=== PATIENT | male | born 2000 | race Caucasian/White ===

== ENCOUNTER 2023-05-21 17:26 | Inpatient (IN) | payer SELFPAY ==
[2023-05-21 17:28] VITALS: BP 111/96; PULSE 87; RESP 14; TEMP 36.6; O2SAT 98; BMI 23.5
--- NOTE | 2023-05-21 18:05 | EDS_ITS ---
HPI History of Present Illness Chief Complaint: General Illness Informant: patient Onset/Context/Timing Onset: Month(s) (1) Context: Gradual Onset Timing: Continuous Quality: Soreness Location: Generalized Worsened by: Nothing Relieved by: Hot baths Narrative Narrative: Patient presents with bruising that has been getting progressively worse over the past month. Patient states it started in his lower extremities and now it spread to his abdomen, chest, and upper extremities. Patient denies any bleeding. Patient denies any trauma or injuries. Patient admits to some nausea but denies any vomiting. Patient admits to some dark urine but denies any dysuria, hematuria, or frequency. Patient does admit to some pain in his back. Patient denies any fevers or chills. PFSH PFS Medical History (Updated 05/22/23 @ 08:[address] Killian Elam DO) Cannabis use disorder Medical History no medical history no medical history Home Medications NK 05/22/23 [History Last Taken Unknown] Allergy/AdvReac Type Severity Reaction Status Date / Time No Known Allergies Allergy Verified 05/21/23 17:27 Family History (Updated 05/22/23 @ 01:[address] Karol Mari MD) Mother No problems noted. Father No problems noted. Surgical History No history of previous surgery Surgical History no surgical history no surgical history Social History (Updated 05/22/23 @ 01:[address] Karol Mari MD) household members: none Smoking Status: Never smoker alcohol intake: never substance use type: marijuana ROS ROS ED Constitutional Constitutional ED: Denies chills or fever(s) Eyes Eyes: Denies blurry vision or change in vision ENT ENT ED: Denies rhinorrhea or sore throat Cardiovascular Cardiovascular: Denies chest pain or palpitations Respiratory/Chest Respiratory/Chest: Denies cough or dyspnea Gastrointestinal Gastrointestinal: Reports nausea; Denies vomiting Genitourinary Genitourinary ED: Denies dysuria or hematuria Musculoskeletal Musculoskeletal: Reports back pain; Denies neck pain Integumentary Denies abscess or rash Neurologic Neurologic: Denies headache(s) or weakness Hematologic/Lymphatic Hematologic/Lymphatic: Reports as per HPI and easy bruising Allergic/Immunologic Allergic/Immunologic ED: Denies mouth swelling or urticaria EXAM Physical Exam Const Vital Signs: 05/21/23 17:28 Temperature 98 F Temperature Source Temporal Pulse Rate 87 Respiratory Rate 14 Blood Pressure 111/96 H Blood Pressure Mean 101 Pulse Ox 98 Oxygen Delivery Method Room Air Positive well nourished and well developed General Appearance ED: well developed HEENT Reports moist mucous membranes Neck supple and no JVD Resp normal respiratory effort and clear to auscultation bilaterally Cardio regular rate, regular rhythm and no murmurs GI normal to inspection, nondistended, normoactive bowel sounds and non-tender Palpation: soft Extremity normal to inspection General Extremety ED: Negative for edema General Extremity: Negative for edema Neuro oriented x3, CN's II-XII intact bilaterally and no sensory deficits noted Sensorium / Orientation: alert Motor Exam: strength 5/5 throughout Psych mental status grossly normal Skin skin turgor normal Skin Narrative: There are multiple areas of ecchymosis. There is tenderness over the areas of ecchymosis. There is no bleeding noted. MDM MDM MDM Narrative Medical decision making narrative: Differential diagnosis includes coagulopathy, thrombocytopenia, ITP, TTP, HSP, and anemia. CBC will be obtained to assess for leukocytosis, anemia, and thrombocytopenia. Basic metabolic profile will be obtained to assess for electrolyte abnormality and renal function. PT with INR and PTT will be obtained to assess for coagulopathy. Urinalysis will be obtained to assess for hematuria. Lab Data Attestation: I reviewed the patient's lab results. Lab results narrative: CBC was reviewed. Platelets were low at 24. White blood cell count was normal. Hemoglobin and hematocrit were normal. PT with INR and PTT were reviewed and were within normal limits. Comprehensive metabolic profile was reviewed. AST was slightly low at 14. Alk phos was slightly low at 40. Urinalysis was reviewed. Urine urobilinogen was slightly elevated at 1. The remainder is within normal limits. Labs: Laboratory Results - last 24 hr 05/21/23 20:00 Haptoglobin 38 Additional Tests and Interventions Additional Tests or Interventions: Case was discussed with Dr. Elam from hematology oncology. He recommended obtaining an LDH and a haptoglobin. These were ordered. LDH was normal at 209. Haptoglobin is still pending. Treatment and Re-Evaluation :: Dr. Elam came in to evaluate the patient. He recommended transferring the patient for further evaluation at a higher level of care. He believes that this may be from ITP however, patient has no signs of petechia which are consistent with ITP. Because it is not a clear-cut diagnosis, he recommends further evaluation and higher level of care. Patient understands and is agreeable with the plan. All questions were answered. Case was discussed with [facility] transfer line. Case was discussed with Dr. Pena from hematology. He agreed that the patient would benefit from transfer to [facility]. However, he recommended admitting to the medical service. Case was discussed with Dr. Zuluaga from the medical service. He stated that he would accept the patient however, there were no beds available at this time. He stated that it may take days before bed becomes available. Case was discussed with [facility] transfer line. Case was discussed with Dr. Riggs from hematology. He agreed to have the patient transferred there. Transfer line noted that it may take days before a bed becomes available there as well. Case was discussed with the hospitalist here. If a bed does not become available in a reasonable timeframe, patient will be admitted here pending transfer to either [facility] or [facility]. Dr. Elam will be able to see the patient if the patient is admitted here pending transfer. Discharge Plan Dx/Rx/DC Orders Clinical Impression: Ecchymoses, spontaneous, Severe thrombocytopenia Disposition Disposition: Acute Care Hospital [facility] Discharge Date/Time: 05/22/23 05:57
[2023-05-21 18:30] LABS: Basophil# 0.02 X10^3/uL; Basophil% 0.3 % (0-1); Eosinophil# 0.03 X10^3/uL; Eosinophils% 0.5 % (0-5); Hematocrit 45.5 % (40-54); Hemoglobin 15.5 g/dL (13.0-16.5); Mean Corp Hgb Conc 34.1 g/dL (32-36); Mean Platelet Vol. 13.5 fl (6.2-12.0); Monocyte# 0.37 X10^3/uL; Monocyte% 5.7 % (0-10); NRBC Flagged by Analyzer 0 % (0-5); Neutrophil % 61.9 % (47-70); POSITIVE COUNT YES; RBC Distribution Width CV 13.1 % (11.6-14.6); RBC Distribution Width SD 43.1 fl (35.1-43.9); White Blood Count 6.5 K/mm3 (4.4-11.0)
[2023-05-21 18:39] LABS: International Normalized Ratio 1.1; Prothrombin Time (Protime)PT. 14.4 SECONDS (11.7-14.9)
[2023-05-21 18:40] LABS: Partial Thromboplast Time 30.7 Seconds (24.1-36.2)
[2023-05-21 18:49] LABS: ALB/GLOB Ratio 1.2 RATIO (0.9-2.4); AST(SGOT) 14 U/L (15-37); Alanine Aminotransfer ALT/SGPT 42 U/L (16-61); Albumin, Serum 4.1 g/dL (3.2-5.0); Alkaline Phosphatase 40 U/L (45-117); Anion Gap 5 (5-15); BUN 10 mg/dL (7-18); Calcium,Total 9.1 mg/dL (8.5-10.1); Chloride 108 mmol/L (98-107); EST Glomerular Filtration Rate 99 mL/min (>60); Est Glom Filt Rate - Afr Amer 120 mL/min (>60); Estimated Creatinine Clearance 119.64 ml/min; Globulin 3.3 g/dL (2.2-4.2); Glucose 97 mg/dL (74-106); Potassium 4.1 mmol/L (3.5-5.1); Protein, Total 7.4 g/dL (6.4-8.2); Sodium Level 138 mmol/L (136-145)
[2023-05-21 18:53] LABS: Differential Indicated SCAN CRITERIA MET; Platelet Count 24 K/mm3 (150-450)
[2023-05-21 18:54] LABS: Differential Comment SCANNED
[2023-05-21 19:00] LABS: Bacteria 0 SEEN /hpf (None Seen); Mucous, Urine 0 SEEN /hpf (<or=2+); Red Blood Cells-Urine 0 SEEN /hpf (0-5); Squamous Epithelial Cells - UA 0 SEEN /hpf (0-5); White Blood Cells 0 SEEN /hpf (0-5)
[2023-05-21 19:02] LABS: Color, Urine Yellow (Yellow); Glucose, Dipstick Normal (Normal); Ketone-Dipstick Negative (Negative); Leukocyte Esterase-Dipstick Negative /ul (Negative); Nitrite-Dipstick Negative (Negative); Occult Blood-Urine Negative /ul (Negative); Protein-Dipstick 15 mg/dl (Negative); Urine Bilirubin Dipstick Negative (Negative); Urine Clarity Clear (Clear); Urine Urobilinogen 1 mg/dl (Normal)
[2023-05-21 20:31] LABS: LDH 209 U/L (87-241)
--- NOTE | 2023-05-21 20:35 | CON.PCM.ON_ITS ---
Assessment & Plan Assessment/Plan (1) Severe thrombocytopenia: Status: Acute Code(s): D69.6 - Thrombocytopenia, unspecified (2) Ecchymoses, spontaneous: Status: Acute Code(s): R23.3 - Spontaneous ecchymoses (3) Malaise: Status: Acute Code(s): R53.81 - Other malaise (4) Muscular aches: Status: Acute Code(s): M79.10 - Myalgia, unspecified site Plan: Impression: -Severe thrombocytopenia associated with malaise and general muscle aches/weakness ~1 month. -Loss of appetite and weight loss. -Reviewed PBS--Many elliptical RBCs and several schistocytes appreciated only toward feathered edge. No obvious blasts. No platelet clumping. -Normal LDH. -Positive urobilinogen. -Normal coagulation times. -The data suggests ITP, but very unusual presentation for ITP. -Possible evolving TTP. Plan: -Recommend transfer to tertiary center [facility] for close monitoring and further work up. HPI Consult Data Date of Service:: 05/21/23 PCP / Referring Provider: No Primary Care Phys Chief Complaint Chief Complaint: Severe thrombocytopenia History of Present Illness History of Present Illness: The patient is a 23-year-old male with an unremarkable past medical history. He presented to the ED earlier this afternoon with complaints of bruising. Symptoms have been going on about a month. He was afebrile on presentation. He said for the last month whenever he gets up in the morning he feels exhausted and has all over body aches. Often has to soak in a hot tub to start feeling better. He has been noticing unprovoked bruises all over for the last month. He has not had petechiae. Occasional gum bleeding when he brushes his teeth. No epistaxis or rectal bleeding. He has not had fevers or drenching night sw eats. His appetite has been poor and he has lost about 10 to 15 pounds. He endorses that if he lies on his stomach, he develops abdominal pain. He has developed reflux symptoms in the last few days. No nausea or vomiting. He has not had black or bloody stools. CBC was notable for a platelet count of 24,000. Remainder of the CBC was unremarkable. Specifically total white count was 6500. Differential was unremarkable. Hemoglobin 15.5 g/dL with a hematocrit of 45.5% and an MCV of 91. Protime and INR as well as activated partial thromboplastin times were normal. Chemistries significant for creatinine of 1.0 mg/dL. BUN was 10. Total bilirubin was 0.9 mg/dL. LDH 209. Urinalysis demonstrated mild proteinuria with some urobilinogen quantitated at 1 mg/dL. Patient had a little brother who was treated for acute leukemia at [facility] of years ago. He smokes marijuana on occasion. No tobacco use. Infrequent alcohol use. No tonic water. Lives on his own. Currently not working. Denies risk factors for HIV. Has not used injection drugs. Was treated for a right groin abscess in November of this year. Advanced Directives Power of Safety Aide: No Living Will: No PFSH Medical History no medical history Allergy/AdvReac Type Severity Reaction Status Date / Time No Known Allergies Allergy Verified 05/21/23 17:27 Surgical History no surgical history Social History Smoking Status: Never smoker ROS Constitutional Constitutional: Reports fatigue, poor appetite and weight loss Cardiovascular Cardiovascular: Reports dyspnea on exertion Gastrointestinal Gastrointestinal: Reports other Details: Reflux Musculoskeletal Musculoskeletal: Reports other Details: Diffuse muscle aches. Integumentary Integumentary: Reports unusual bruising Hematologic/Lymphatic Hematologic/Lymphatic: Reports easy bruising Physical Exam Const alert, oriented x3 and no apparent distress General Appearance: cooperative HEENT HEENT Narrative: No oral mucosal or gingival bleeding noted. Eyes no scleral icterus Neck no lymphadenopathy Lymph Lymphatic: no lymphadenopathy noted Chest Chest Narrative: Bruising of right breast with palpable nodule--?hematoma. Resp normal respiratory effort Cardio regular rhythm GI soft to palpation and non-tender GI Narrative: No hepatomegaly or splenomegaly. Narrative: No testicular mass or nodule. Small mildly erythematous skin nodule left scrotum. Skin Skin Narrative: Large scattered ecchymoses in various stages of healing. No petechiae. Neuro no focal motor deficits Vital Signs Temperature 98 F 05/21/23 17:28 Temperature Source Temporal 05/21/23 17:28 Pulse Rate 87 05/21/23 17:28 Respiratory Rate 14 05/21/23 17:28 Blood Pressure 111/96 H 08/08/23 17:28 Blood Pressure Mean 101 05/21/23 17:28 Pulse Ox 98 05/21/23 17:28 Oxygen Delivery Method Room Air 05/21/23 17:28 Laboratory Results - last 24 hr 05/21/23 18:20: WBC 6.5, RBC 5.00, Hgb 15.5, Hct 45.5, MCV 91.0, MCH 31.0, MCHC 34.1, RDW Std Deviation 43.1, RDW Coeff of Nba 13.1, Plt Count 24 L*, MPV 13.5 H , Immature Gran % (Auto) 0.600, Neut % (Auto) 61.9, Lymph % (Auto) 31.0, [place] % (Auto) 5.7, Eos % (Auto) 0.5, Baso % (Auto) 0.3, Absolute Neuts (auto) 4.0, Absolute Lymphs (auto) 2.00, Nucleated RBC % 0, Differential Comment SCANNED, Diff Path Review February, PT 14.4, INR 1.1, APTT 30.7, Sodium 138, Potassium 4.1, Chloride 108 H, Carbon Dioxide 25.0, Anion Gap 5, BUN 10, Creatinine 1.00, Estim Creat Clear Calc 119.64, Est GFR (MDRD) Af Amer 120, Est GFR (MDRD) Non-Af 99, BUN/Creatinine Ratio 10.0, Glucose 97, Calcium 9.1, Total Bilirubin 0.90, AST 14 L, ALT 42, Alkaline Phosphatase 40 L, Total Protein 7.4, Albumin 4.1, Globulin 3.3, Albumin/Globulin Ratio 1.2 05/21/23 18:56: Urine Color Yellow, Urine Clarity Clear, Urine pH 8.0, Ur Specific [place] 1.010, Urine Protein 15 H, Urine Glucose (UA) Normal, Urine Ketones Negative, Urine Occult Blood Negative, Urine Nitrite Negative, Urine Bilirubin Negative, Urine Urobilinogen 1 H, Ur Leukocyte Esterase Negative, Urine RBC 0 SEEN, Urine WBC 0 SEEN, Ur Squamous Epith Cells 0 SEEN, Urine Bacteria 0 SEEN, Urine Mucus 0 SEEN 05/21/23 20:00: Lactate Dehydrogenase 209
--- NOTE | 2023-05-21 21:44 | CM.ED ---
Social Work SW introduced self and role to patient. SW offered support to patient. Pt is being transferred to another facility. SW answered questions as able. Pt expressed some concerns and SW provided emotional support. Andreina Mendez GLOST TILE SORTER, RECLAMATION FURNACE OPERATOR
[2023-05-22] VITALS (8 sets, daily range): BP systolic 108–137; BP diastolic 68–78; PULSE 51–78; RESP 14–18; TEMP 35.9–36.7; O2SAT 96–99; BMI 22.8
--- NOTE | 2023-05-22 01:17 | PCM.HP.STD ---
HPI - General General Date of Admission: 05/22/23 Date of Service: 05/22/23 Chief Complaint: Bruising, fatigue, malaise, weight loss. HPI Narrative The patient is a 23 y/o M w/ PMHx: Cannabis use otherwise healthy with no medical history and no recent illnesses or recent medications usage who presents to the [facility] initially on 05/21/2023 with history of approximately 1 month of increased fatigue, myalgias, malaise, decreased appetite, weight loss of approximately 10 to 15 pounds, night sweats as well as nausea without any emesis with onset of ecchymoses unprovoked initially starting distally and going upwards spreading to his abdomen and chest with no travis bleeding except occasionally when he brushes his teeth. Patient denied any fevers or chills. Patient does report mild enlargement over bruising of the right breast with suspected hematoma. Patient denied any petechia. Workup in the ED included T98, heart rate 87, BP 111/96, respiratory rate 14, 98% on room air, CBC with WC 6.5, hemoglobin 15.5, platelet 24 without marked shift, pending haptoglobin, coags unremarkable, CMP with chloride 108 otherwise not marked appearing, LDH 209, urinalysis with protein 15, urine urobilinogen 1 otherwise urine unremarkable, PBS review per Dr. Elam oncology with noted many elliptical RBCs and several schistocytes only toward feathered edge with no obvious blasts or any platelet clumping. ED physician did discuss case with oncologist Dr. Elam who presented to the hospital and evaluated the patient with data at this point suggestive of ITP although reported to very atypical and usual presentation with data suggestive of ITP but certainly could be a possible evolving TTP with recommendation for transfer to tertiary facility. [facility] was contacted as well as [facility] and patient is still awaiting bed placement but per discussion with the ED has been accepted therefore decision to admit to [facility] pending further tertiary facility bed availability. [facility] Medical History (Updated 05/22/23 @ 01:[address] Karol Mari MD) Cannabis use disorder Medical History no medical history Allergy/AdvReac Type Severity Reaction Status Date / Time No Known Allergies Allergy Verified 05/21/23 17:27 Family History (Updated 05/22/23 @ 01:[address] Karol Mari MD) Mother No problems noted. Father No problems noted. other (Denies any marked maternal or paternal family history including HD, DM, CA.) Surgical History (Updated 05/22/23 @ 01:[address] Karol Mari MD) No history of previous surgery Surgical History no surgical history Social History (Updated 05/22/23 @ 01:[address] Karol Mari MD) household members: none Smoking Status: Never smoker alcohol intake: never substance use type: marijuana ROS ROS Narrative Admission Review of Systems: CONSTITUTIONAL: + weight loss, fever, chills, weakness or fatigue. HEENT: Eyes: No visual loss, blurred vision, double vision or yellow sclerae. Ears, Nose, Throat: No hearing loss, sneezing, congestion, runny nose or sore throat. SKIN: + Significant diffuse ecchymotic change of various stages. CARDIOVASCULAR: No chest pain, chest pressure or chest discomfort, palpitations, edema, orthopnea, syncopal events. RESPIRATORY: No shortness of breath, cough or sputum, wheezing, hemoptysis. GASTROINTESTINAL: + anorexia, nausea, dyspepsia. No vomiting or diarrhea, abdominal pain, melena, BRBPR. GENITOURINARY: No dysuria, frequency, urgency or retention. NEUROLOGICAL: No headache, dizziness, syncope, paralysis, ataxia, numbness or tingling in the extremities, focal weakness, change in bowel or bladder control, seizure. MUSCULOSKELETAL: + muscle, back pain, joint pain or stiffness. HEMATOLOGIC: + bleeding or bruising. LYMPHATICS: No enlarged nodes. No history of splenectomy. PSYCHIATRIC: No history of depression or anxiety. ENDOCRINOLOGIC: + reports of sweating, cold or heat intolerance. No polyuria or polydipsia. ALLERGIES: No history of asthma, hives, eczema or rhinitis. Vital Signs Vital Signs Vital Signs: 05/21/23 17:28 05/22/23 00:40 Temperature 98 F Temperature Source Temporal Pulse Rate 87 78 Respiratory Rate 14 17 Blood Pressure 111/96 H 131/78 H Blood Pressure Mean 101 95 Pulse Ox 98 97 Oxygen Delivery Method Room Air Room Air Weight Weight: 164 lb 0.383 oz Body Mass Index (BMI) 23.5 Physical Exam Narrative Physical Examination: General: Awake, alert, oriented x 3 and cooperative, laying in the ED bed, fatigued but no acute distress. Skin: Normal color, normal turgor, no icterus, no cyanosis except for various staged ecchymotic change to the extremities and thorax as well as abdomen and back. HEENT: AT/NC, EOMI, PERRLA, MMM, no carotid bruits or JVD noted. Lungs: CTA bilaterally, moderate effort, mild decrease BL bases, no rales, ronchi or wheezing. Heart: Regular rate and rhythm; no gallop, rub audible. Abdomen: Soft, NTTP, ND, mildly hyperactive BS, no HSM. Extremities: No cyanosis, clubbing, or edema, see skin. Neurological: Patient awake, alert, oriented as noted, cognitive function intact; pupils equally reactive to light and accommodation, cranial nerves II-XII grossly normal, moving all 4 extremities, strength mildly globally decreased but no focal deficit, more fatigued primarily than anything. Psychiatric: Affect appears fatigued, no acute evidence of depressive or anxiety feelings. Results Lab / Micro Data 05/21/23 18:20 05/21/23 18:20 Labs: Laboratory Results - last 24 hr 05/21/23 18:20: WBC 6.5, RBC 5.00, Hgb 15.5, Hct 45.5, MCV 91.0, MCH 31.0, MCHC 34.1, RDW Std Deviation 43.1, RDW Coeff of Nba 13.1, Plt Count 24 L*, MPV 13.5 H, Immature Gran % (Auto) 0.600, Neut % (Auto) 61.9, Lymph % (Auto) 31.0, [place] % (Auto) 5.7, Eos % (Auto) 0.5, Baso % (Auto) 0.3, Absolute Neuts (auto) 4.0, Absolute Lymphs (auto) 2.00, Nucleated RBC % 0, Differential Comment SCANNED, Diff Path Review February foll, PT 14.4, INR 1.1, APTT 30.7, Sodium 138, Potassium 4.1, Chloride 108 H, Carbon Dioxide 25.0, Anion Gap 5, BUN 10, Creatinine 1.00, Estim Creat Clear Calc 119.64, Est GFR (MDRD) Af Amer 120, Est GFR (MDRD) Non-Af 99, BUN/Creatinine Ratio 10.0, Glucose 97, Calcium 9.1, Total Bilirubin 0.90, AST 14 L, ALT 42, Alkaline Phosphatase 40 L, Total Protein 7.4, Albumin 4.1, Globulin 3.3, Albumin/Globulin Ratio 1.2 05/21/23 18:56: Urine Color Yellow, Urine Clarity Clear, Urine pH 8.0, Ur Specific [place] 1.010, Urine Protein 15 H, Urine Glucose (UA) Normal, Urine Ketones Negative, Urine Occult Blood Negative, Urine Nitrite Negative, Urine Bilirubin Negative, Urine Urobilinogen 1 H, Ur Leukocyte Esterase Negative, Urine RBC 0 SEEN, Urine WBC 0 SEEN, Ur Squamous Epith Cells 0 SEEN, Urine Bacteria 0 SEEN, Urine Mucus 0 SEEN 05/21/23 20:00: Lactate Dehydrogenase 209 Assessment & Plan Assessment/Plan (1) Severe thrombocytopenia: PLAN: Plan The patient is a 23 y/o M w/ PMHx: Cannabis use otherwise healthy with no medical history and no recent illnesses or recent medications usage who presents to the [facility] initially on 05/21/2023 with history of approximately 1 month of increased fatigue, myalgias, malaise, decreased appetite, weight loss of approximately 10 to 15 pounds, night sweats as well as nausea without any emesis with onset of ecchymoses unprovoked initially starting distally and going upwards spreading to his abdomen and chest with no travis bleeding except occasionally when he brushes his teeth. #1. Severe thrombocytopenia, acute with spontaneous unprovoked ecchymoses concerning for possibly ITP or possibly evolving TTP, unclear exact etiology: Given no bed at tertiary facility will at this time admit to [facility], maintain on fall precautions, will continue consultation with [facility] oncology Dr. Elam, plan repeat CBC in a.m. and per discussion with ED physician with also oncology will hold on immediate steroid administration at this time pending repeat CBC and also if patient does obtain a tertiary facility bed prior. If does not transfer throught the evening-java enterprise architect, would plan also to obtain breast US to be cautious to assure hematoma. #2. Chronic cannabis usage: Encourage cessation. #3. DVT prophylaxis: Defer especially given #1. Charges/Coding Visit Charges Inpatient E&M: 47338 Init Hosp L2
--- NOTE | 2023-05-22 05:42 | ED.RN ---
Attempted to call Hawa (mom) about pt admission to [facility]. No answer at this time, unable to leave voicemail.
[2023-05-22 07:02] LABS: Absolute Lymphocyte Count 3.14 X10^3/uL (0.83-4.51); Basophil# 0.03 X10^3/uL; Basophil% 0.4 % (0-1); Eosinophil# 0.05 X10^3/uL; Eosinophils% 0.7 % (0-5); Hematocrit 45.1 % (40-54); Hemoglobin 15.3 g/dL (13.0-16.5); Lymphocyte # 3.14 X10^3/ul (0.83-4.51); Lymphocyte % 40.8 % (19-41); Mean Corp Hgb Conc 33.9 g/dL (32-36); Mean Corpuscular Hgb 30.5 pg (27.0-32.0); Mean Corpuscular Volume 89.8 fL (80-94); Mean Platelet Vol. 12.4 fl (6.2-12.0); Monocyte% 5.2 % (0-10); NRBC Flagged by Analyzer 0 % (0-5); Neutrophil # 4.03 X10^3/uL (2.7-7.7); Neutrophil % 52.4 % (47-70); POSITIVE COUNT YES; Platelet Count 22 K/mm3 (150-450); RBC Distribution Width SD 42.5 fl (35.1-43.9); Red Blood Count 5.02 M/mm3 (4.6-6.2); White Blood Count 7.7 K/mm3 (4.4-11.0)
[2023-05-22 07:11] LABS: Differential Indicated SCAN CRITERIA MET
[2023-05-22 07:17] LABS: Fibrinogen 172 mg/dl (203-444)
[2023-05-22 07:32] LABS: ALB/GLOB Ratio 1.3 RATIO (0.9-2.4); AST(SGOT) 12 U/L (15-37); Alanine Aminotransfer ALT/SGPT 39 U/L (16-61); Albumin, Serum 4.1 g/dL (3.2-5.0); Alkaline Phosphatase 38 U/L (45-117); Anion Gap 5 (5-15); BUN 13 mg/dL (7-18); BUN/Creat Ratio 12.9 RATIO (10-20); Calcium,Total 8.8 mg/dL (8.5-10.1); Chloride 109 mmol/L (98-107); Creatinine, Serum 1.01 mg/dL (0.70-1.30); EST Glomerular Filtration Rate 98 mL/min (>60); Est Glom Filt Rate - Afr Amer 119 mL/min (>60); Estimated Creatinine Clearance 117.32 ml/min; Globulin 3.2 g/dL (2.2-4.2); Glucose 87 mg/dL (74-106); LDH 200 U/L (87-241); Potassium 3.6 mmol/L (3.5-5.1); Protein, Total 7.3 g/dL (6.4-8.2); Sodium Level 141 mmol/L (136-145)
[2023-05-22 07:40] LABS: Platelet Estimate MKD DEC (ADEQ)
[2023-05-22 08:10] LABS: International Normalized Ratio 1.1; Partial Thromboplast Time 31.9 Seconds (24.1-36.2); Prothrombin Time (Protime)PT. 14.7 SECONDS (11.7-14.9)
--- NOTE | 2023-05-22 08:20 | PN.ONC_ITS ---
Subjective Subjective No subjective change. No bleeding issues or fever overnight. Poor appetite this am. Physical Exam Eyes no scleral icterus Lymph Lymphatic: no lymphadenopathy noted Chest Chest: ecchymosis Resp normal air movement Cardio regular rhythm Skin Skin Narrative: No change in ecchymoses. Vital Signs Temperature 97.9 F 05/22/23 06:18 Temperature Source Oral 05/22/23 06:18 Pulse Rate 51 L 05/22/23 06:18 Respiratory Rate 17 05/22/23 06:18 Blood Pressure 128/68 H 05/22/23 06:18 Blood Pressure Mean 88 05/22/23 06:18 Blood Pressure Source Monitor 05/22/23 06:18 Blood Pressure Position Semi-Fowlers 05/22/23 06:18 Blood Pressure Location Right Arm 05/22/23 06:18 Pulse Ox 99 05/22/23 06:18 Oxygen Delivery Method Room Air 05/22/23 06:18 Laboratory Results - last 24 hr 05/21/23 18:20: WBC 6.5, RBC 5.00, Hgb 15.5, Hct 45.5, MCV 91.0, MCH 31.0, MCHC 34.1, RDW Std Deviation 43.1, RDW Coeff of Nba 13.1, Plt Count 24 L*, MPV 13.5 H , Immature Gran % (Auto) 0.600, Neut % (Auto) 61.9, Lymph % (Auto) 31.0, [place] % (Auto) 5.7, Eos % (Auto) 0.5, Baso % (Auto) 0.3, Absolute Neuts (auto) 4.0, Absolute Lymphs (auto) 2.00, Nucleated RBC % 0, Differential Comment SCANNED, Diff Path Review February, PT 14.4, INR 1.1, APTT 30.7, Sodium 138, Potassium 4.1, Chloride 108 H, Carbon Dioxide 25.0, Anion Gap 5, BUN 10, Creatinine 1.00, Estim Creat Clear Calc 119.64, Est GFR (MDRD) Af Amer 120, Est GFR (MDRD) Non-Af 99, BUN/Creatinine Ratio 10.0, Glucose 97, Calcium 9.1, Total Bilirubin 0.90, AST 14 L, ALT 42, Alkaline Phosphatase 40 L, Total Protein 7.4, Albumin 4.1, Globulin 3.3, Albumin/Globulin Ratio 1.2 05/21/23 18:56: Urine Color Yellow, Urine Clarity Clear, Urine pH 8.0, Ur Specific [place] 1.010, Urine Protein 15 H, Urine Glucose (UA) Normal, Urine Ketones Negative, Urine Occult Blood Negative, Urine Nitrite Negative, Urine Bilirubin Negative, Urine Urobilinogen 1 H, Ur Leukocyte Esterase Negative, Urine RBC 0 SEEN, Urine WBC 0 SEEN, Ur Squamous Epith Cells 0 SEEN, Urine Bacteria 0 SEEN, Urine Mucus 0 SEEN 05/21/23 20:00: Lactate Dehydrogenase 209 05/22/23 06:35: WBC 7.7, RBC 5.02, Hgb 15.3, Hct 45.1, MCV 89.8, MCH 30.5, MCHC 33.9, RDW Std Deviation 42.5, RDW Coeff of Nba 13.0, Plt Count 22 L*, MPV 12.4 H , Immature Gran % (Auto) 0.500, Neut % (Auto) 52.4, Lymph % (Auto) 40.8, [place] % (Auto) 5.2, Eos % (Auto) 0.7, Baso % (Auto) 0.4, Absolute Neuts (auto) 4.0, Absolute Lymphs (auto) 3.14, Nucleated RBC % 0, Diff Path Review February, Platelet Estimate MKD DEC, PT 14.7, INR 1.1, APTT 31.9, Fibrinogen 172 L, Sodium 141, Potassium 3.6, Chloride 109 H, Carbon Dioxide 27.0, Anion Gap 5, BUN 13, Creatinine 1.01, Estim Creat Clear Calc 117.32, Est GFR (MDRD) Af Amer 119, Est GFR (MDRD) Non-Af 98, BUN/Creatinine Ratio 12.9, Glucose 87, Calcium 8.8, Total Bilirubin 1.00, AST 12 L, ALT 39, Alkaline Phosphatase 38 L, Lactate Dehydrogenase 200, Total Protein 7.3, Albumin 4.1, Globulin 3.2, Albumin/Globulin Ratio 1.3 Assessment & Plan Assessment/Plan (1) Severe thrombocytopenia: (2) Ecchymoses, spontaneous: (3) Hypofibrinogenemia: (4) Malaise: (5) Muscular aches: PLAN: Impression: -Severe thrombocytopenia associated with malaise and general muscle aches/weakness ~1 month. -Loss of appetite and weight loss. -Reviewed PBS last evening--Many elliptical RBCs and several schistocytes appreciated only toward feathered edge. No obvious blasts. No platelet clumping. -LDH remains normal on repeat as does bilirubin. -Positive urobilinogen. -Normal coagulation times. -Now with low fibrinogen. 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 Plan: -Asked pathologist to review PBS. -Recheck coagulation times. -Thrombin time. -Retic count. -Hep C and HIV test. -Serum CK--muscle hematomas? -If no schistocytes per pathology, then begin dexamethasone 40 mg PO daily x4 days. -Awaiting transfer to tertiary center tonight for close monitoring and further work up.
--- NOTE | 2023-05-22 08:30 | NURSING ---
This nurse called [facility] for bed update, transfer line stated that the patient was not accepted as they did not have any beds available at this time. [facility] transfer line called, they stated patient was accepted with Dr. Helms as the accepting physician. [facility] does not have any available beds at this time. Phone number for [facility] given to the transfer line to return call when bed opens up. Dr. Yoo notified of this at this time.
[2023-05-22 08:52] LABS: Immature Platelet Fraction 22.5 % (1.0-7.9); Platelet Count 23 K/mm3 (150-450); RET-HE 35.1 pg (30-35); Reticulocyte Count 1.58 % (0.5-1.5)
[2023-05-22 08:58] LABS: CPK Total, Creatine Kinase 66 U/L (39-308)
[2023-05-22 09:28] LABS: HIV - WCH Non-Reactive (Nonreactive); Hepatitis C Antibody Non-Reactive (Nonreactive)
--- NOTE | 2023-05-22 09:38 | PN_ITS ---
Subjective Subjective Patient seen and examined. He had no complaints. He hasnt developed any new bruises. He did see some blood when brushing his teeth today. Review of systems is otherwise negative. Platelets are down to 22 today from 24 on admission. Objective Data Objective Data Vital Signs: Vital Signs Temp Pulse Resp BP Pulse Ox O2 Del Method 97.9 F 51 L 17 128/68 H 99 Room Air 05/22/23 06:18 05/22/23 06:18 05/22/23 06:18 05/22/23 06:18 05/22/23 06:18 05/22/23 06:18 Oxygen Delivery Method Room Air Weight: 159 lb 6.307 oz Body Mass Index (BMI) 22.8 Lab / Micro Data 05/22/23 06:35 05/22/23 06:35 Labs: Laboratory Results - last 24 hr 05/21/23 18:20: WBC 6.5, RBC 5.00, Hgb 15.5, Hct 45.5, MCV 91.0, MCH 31.0, MCHC 34.1, RDW Std Deviation 43.1, RDW Coeff of Nba 13.1, Plt Count 24 L*, MPV 13.5 H , Immature Gran % (Auto) 0.600, Neut % (Auto) 61.9, Lymph % (Auto) 31.0, [place] % (Auto) 5.7, Eos % (Auto) 0.5, Baso % (Auto) 0.3, Absolute Neuts (auto) 4.0, Absolute Lymphs (auto) 2.00, Nucleated RBC % 0, Differential Comment SCANNED, Diff Path Review February, PT 14.4, INR 1.1, APTT 30.7, Sodium 138, Potassium 4.1, Chloride 108 H, Carbon Dioxide 25.0, Anion Gap 5, BUN 10, Creatinine 1.00, Estim Creat Clear Calc 119.64, Est GFR (MDRD) Af Amer 120, Est GFR (MDRD) Non-Af 99, BUN/Creatinine Ratio 10.0, Glucose 97, Calcium 9.1, Total Bilirubin 0.90, AST 14 L, ALT 42, Alkaline Phosphatase 40 L, Total Protein 7.4, Albumin 4.1, Globulin 3.3, Albumin/Globulin Ratio 1.2 05/21/23 18:56: Urine Color Yellow, Urine Clarity Clear, Urine pH 8.0, Ur Specific [place] 1.010, Urine Protein 15 H, Urine Glucose (UA) Normal, Urine Ketones Negative, Urine Occult Blood Negative, Urine Nitrite Negative, Urine Bilirubin Negative, Urine Urobilinogen 1 H, Ur Leukocyte Esterase Negative, Urine RBC 0 SEEN, Urine WBC 0 SEEN, Ur Squamous Epith Cells 0 SEEN, Urine Bacteria 0 SEEN, Urine Mucus 0 SEEN 05/21/23 20:00: Lactate Dehydrogenase 209 05/22/23 06:35: WBC 7.7, RBC 5.02, Hgb 15.3, Hct 45.1, MCV 89.8, MCH 30.5, MCHC 33.9, RDW Std Deviation 42.5, RDW Coeff of Nba 13.0, Plt Count 22 L*, MPV 12.4 H , Immature Gran % (Auto) 0.500, Neut % (Auto) 52.4, Lymph % (Auto) 40.8, [place] % (Auto) 5.2, Eos % (Auto) 0.7, Baso % (Auto) 0.4, Absolute Neuts (auto) 4.0, Absolute Lymphs (auto) 3.14, Nucleated RBC % 0, Diff Path Review May foll, Platelet Estimate MKD DEC, Immature Plt Fraction 22.5 H, Retic Count 1.58 H, Immature Retic Fraction 6.90, Retic Hgb Equivalent 35.1 H, PT 14.7, INR 1.1, APTT 31.9, Fibrinogen 172 L, Sodium 141, Potassium 3.6, Chloride 109 H, Carbon Dioxide 27.0, Anion Gap 5, BUN 13, Creatinine 1.01, Estim Creat Clear Calc 117.32, Est GFR (MDRD) Af Amer 119, Est GFR (MDRD) Non-Af 98, BUN/Creatinine Ratio 12.9, Glucose 87, Calcium 8.8, Total Bilirubin 1.00, AST 12 L, ALT 39, Alkaline Phosphatase 38 L, Lactate Dehydrogenase 200, Total Creatine Kinase 66, Total Protein 7.3, Albumin 4.1, Globulin 3.2, Albumin/Globulin Ratio 1.3, Hepatitis C Antibody Non-Reactive, HIV 1&2 Antibody Non-Reactive Physical Exam Const alert, oriented x3 and no apparent distress General Appearance: cooperative and well developed HEENT head/scalp atraumatic, moist oral mucous membranes, oropharynx normal and gingiva normal HEENT Narrative: gingiva not visibly swollen Eyes PERRL and EOMs intact bilaterally Neck no lymphadenopathy and supple Lymph Lymphatic: no lymphadenopathy noted and no lymphedema noted Resp normal respiratory effort, normal air movement and clear to auscultation bilaterally Cardio regular rate, regular rhythm, S1 normal heart sound, S2 normal heart sound and no murmurs GI normal to inspection, nondistended, normoactive bowel sounds, soft to palpation, non-tender and non-distended Extremity normal capillary refill, no clubbing, cyanosis or edema and no calf tenderness Skin Skin Narrative: has multiple ecchymotic patches over his arms and legs, and torso. Has a sig nificant bruise over the left breast. Neuro CN's II-XII intact bilaterally, no focal motor deficits, no sensory deficits noted and deep tendon reflexes 2+ bilaterally Motor Exam: strength 5/5 throughout Psych thought process normal, cooperative and affect normal Appearance: appropriate Assessment & Plan Assessment/Plan (1) Ecchymoses, spontaneous: (2) Severe thrombocytopenia: (3) Muscular aches: (4) Hypofibrinogenemia: PLAN: Plan #SEvere thrombocytopenia * platelets were 24 on admission, now down to 22. * has associated multiple ecchymotic bruises, and had some bleeding from his gums when brushing his teeth today * hematology on board; concern was for ITP vs revolving TTP.had associated ge neralised malaise and weakness x 1 month. 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 * per hematology, pathology asked to review slides; if negative fo schistocytes, then will start on dexamethasone 40mg daily x 4 days. * awaiting transfer to tertiary facility for close monitoring and further workup as needed * HIV and Hep C test ordered. * repeat stat fibrinogen and fibrinogen and D dimer ordered for tomorrow * # Chronic cannabinoid use: encouraged to quit DVT prophylaxis; SCDs.No anticoagulation in light of severe thrombocytopenia 10:21am: I was informed by Dr Elam that he spoke to pathologist Dr Randall who reviewed the slides and didnt see any schistocytes. Plan is therefore to treat for ITP and start on PO dexamethasone 40mg daily x 4 days. 1:53pm: I was informed by Dr Elam that due to need for bone marrow biopsy, and concern that acute promyelocytic leukemia could also present in a similar fashion, He had spoken to the clerical associate at [facility] who said he would accept the patient and see in consult if medicine accepted the patient. Dr. Elam did speak to the medicine team who accepted the patient pending availability of bed. Per Dr. Elam, if patient has not been transferred by tomorrow then he will do a bone marrow biopsy. Patient to be given 1 units of platelets before the biopsy. Platelets ordered. Charges/Coding Visit Charges Inpatient E&M: 71824 Subs Hosp L3
[2023-05-22] MEDS: dexAMETHasone 4 MG Tablet 40 MG PO (10:46)
[2023-05-22 15:13] LABS: Fibrinogen 200 mg/dl (203-444)
[2023-05-23] VITALS (15 sets, daily range): BP systolic 109–140; BP diastolic 62–96; PULSE 55–74; RESP 12–18; TEMP 36.4–37.3; O2SAT 96–100
--- NOTE | 2023-05-23 | BMB_PTH ---
PATIENT: IBIS BUITRAGO LOC: [facility] U#:[id number] AGE/SX: 23/M ROOM: MI311 RE05/22/[address]: Dr. Kay Yoo MD : 2000 BED: 1 DIS: 05/24/2023 SPEC #: [id number] RECD: 05/23/23 10:12 STATUS: GLENDA REQ #: [id number] MAX: 05/23/23 00:[address]: Killian Elam DEPT: BONE MARROW RECD BY: Paola Pressley ENTERED: 05/23/23 10:13 SP TYPE: BMB OTHR DR: MD Dr. Abhishek Roberts MD Dr. Elnora Spradling, MD Dr. Lapman Lun, MD Dr. Mir Ali, MD Dr. Nana Yaa Koram, MD Dr. Paul Masci, DO No Primary Care Phys Tissues: A - Bone marrow, NOS B - Bone marrow, NOS C - Bone marrow, NOS Procedures: Bone Marrow Aspiration Bone Marrow Core Biopsy Iron Stain Bone Marrow Comments: @ Ordering doctor for DEC edited from to DR.PMASCI Mckay by MARK at 05/23/23 1310 @ Ordering doctor for BMA edited from to DR.PMASCI Mckay by MARK at 05/23/23 1310 @ Ordering doctor for BMCB edited from to DR.PMASCI Mckay by MARK at 05/23/23 1310 @ Ordering doctor for FEBM edited from to DR.PMASCI Nely FLORES at 05/23/23 1310 @ Submitting doctor edited from to DR.PMASCI Mckay by MARK at 05/23/23 1310 HEADER OPERATION: Bone marrow biopsy and aspiration PRE-OP DIAGNOSIS: Severe thrombocytopenia and hypofibrinogenemia TISSUE SUBMITTED: A - Core, B - Clot, C - Smears, and send outs (flow, cytogenetics, MDS & PML/JEREMY) BONE MARROW DIAGNOSIS Bone marrow, core, clot and aspirate smears: 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 See comment. SJ:margarito 05/24/2023 COMMENT Flow cytometry, FISH and cytogenetic studies are pending. Clinical correlation and appropriate follow up are necessary. Case has been reviewed in consultation with Dr. Hernandes who concurs with the above diagnosis. IDC:LISA BONE MARROW STUDY Slides are reviewed. CBC DATE: 05/23/23 WBC 8.18; RBC 4.99; HGB 15.5; HCT 45.3; MCV 98.8; RDW 12.8; PLTS 48,000 SEGS 80.9%; LYMPHS 14.5%; MONOS 3.9%; EOS 0.0%; BASOS 0.1%; Immature granulocytes 0.6% PERIPHERAL SMEAR: Submitted. RBC: Normocytic and normochromic. WBC: Unremarkable. The WBC count is compatible to as reported above. PLTS: Markedly decreased. BONE MARROW ASPIRATE DIFFERENTIAL: 200 cell count. Blasts % (normal 0-2): 0 Promyelocytes % (normal 1-5): 2 Myelocytes and metamyelocytes % (normal 17-41): 24 Bands and Segs % (normal 15-32): 35 Eos % (normal 1-6): 3 Basos % (normal 0-1): 0 Monocytes % (normal 0-4): 2 Erythroid Precursors % (normal 17-35): 22 Lymphocytes % (normal 7-13): 12 Plasma Cells % (normal 0-2): 0 ASPIRATE FINDINGS: Site: Not specified Spicular, Cellular M/E ratio: 2.9 (Normal 1.5-4.0) Megakaryocytes: Present. Hypolobated and micromegakaryocytes are noted. Erythropoiesis: Normoblastic. Granulopoiesis: Progressive and unremarkable. Comment: Megakaryocytic dysplasia is noted. CORE BIOPSY FINDINGS: Site: Not specified Adequacy: Limited Comment: The specimen predominantly consists of peripheral blood mixed with a few hematopoietic cells consisting of erythroid, myeloid and megakaryocytes. ASPIRATE CLOT FINDINGS: Site: Not specified Marrow particles: Numerous Cellularity: 50% M/E ratio: Within normal limits. Megakaryocytes: Present and increased in number. Granulomas: Absent. Lymphoid aggregates: Absent. Atypical infiltrates: Absent. SPECIAL STAINS WITH MATCHED CONTROLS: Iron: 1+, atypical or ring sideroblasts are not seen. Reticulin: No significant increase of reticulin fibers is noted. PAS: Highlights myeloid cells and megakaryocytes. BONE MARROW GROSS A - Received is a container labeled with the patient's name and designated bone marrow. The specimen consists of a scant amount of blood clot submitted for cell block preparation. B - Received labeled with the patient's name and designated bone marrow is a specimen that consists of approximately 8 ml of bloody fluid that on filtration yields multiple minute fragments of blood clots measuring in aggregate 3.0 x 2.5 x 0.3 cm. The specimen is totally submitted in one cassette. C - Also received are 16 unstained and 1 peripheral stained slides. The unstained slides are submitted for appropriate staining. Also received is one green top tube which is sent to our reference lab for flow, cytogenetics, MDS & PML/JEREMY. / SJ:rg 05/23/2023 TC: CPT: 27126, 25564, 80097 x2, 02254 x3 ADDENDUM ADDENDUM ADDENDUM ADDENDUM ADDENDUM ADDENDUM ADDENDUM ADDENDUM ADDENDUM ADDENDUM ADDENDUM ADDENDUM ADDENDUM ADDENDUM ADDENDUM ADDENDUM ADDENDUM ADDENDUM ADDENDUM ADDENDUM ADDENDUM ADDENDUM ADDENDUM ADDENDUM ADDENDUM 06/04/2023 09:02 ADDENDUM 06/04/2023 09:02 ADDENDUM 06/04/2023 09:02 ADDENDUM 06/04/2023 09:02 ADDENDUM 06/04/2023 09:02 FLOW CYTOMETRY REPORT FROM [facility] INTERPRETATION: No significant immunophenotypic abnormality detected. Lymphocytosis. CYTOGENETICS REPORT FROM [facility] CYTOGENETIC RESULT: 46,XY[20] INTERPRETATION: Normal male karyotype was observed in twenty metaphases analyzed. MDS FISH PANEL FROM [facility] FISH RESULT: Normal MDS panel. APL (PML-JEREMY) QUANT FROM [facility] PML bcr1-JEREMY transcript <0.001% PML bcr2-JEREMY transcript <0.001% PML bcr3-JEREMY transcript <0.001% INTERPRETATION: No fusion of the retinoic acid receptor alpha gene (JEREMY) with the PML gene was observed. Please see complete report in e-chart or EMR
[2023-05-23 05:07] LABS: Haptoglobin 38 mg/dL (17-317)
[2023-05-23 05:42] LABS: Absolute Lymphocyte Count 1.19 X10^3/uL (0.83-4.51); Absolute Neutrophil Count 6.6 X10^3/uL (2.0-7.7); Basophil# 0.01 X10^3/uL; Basophil% 0.1 % (0-1); Hematocrit 45.3 % (40-54); Hemoglobin 15.5 g/dL (13.0-16.5); Lymphocyte # 1.19 X10^3/ul (0.83-4.51); Lymphocyte % 14.5 % (19-41); Mean Corp Hgb Conc 34.2 g/dL (32-36); Mean Corpuscular Hgb 31.1 pg (27.0-32.0); Mean Corpuscular Volume 90.8 fL (80-94); Mean Platelet Vol. 11.9 fl (6.2-12.0); Monocyte# 0.32 X10^3/uL; Monocyte% 3.9 % (0-10); NRBC Flagged by Analyzer 0 % (0-5); Neutrophil # 6.61 X10^3/uL (2.7-7.7); Neutrophil % 80.9 % (47-70); POSITIVE COUNT YES; Platelet Count 48 K/mm3 (150-450); RBC Distribution Width CV 12.8 % (11.6-14.6); RBC Distribution Width SD 42.2 fl (35.1-43.9); Red Blood Count 4.99 M/mm3 (4.6-6.2); White Blood Count 8.2 K/mm3 (4.4-11.0)
[2023-05-23 05:47] LABS: Differential Indicated SCAN CRITERIA MET
[2023-05-23 06:02] LABS: Fibrinogen 163 mg/dl (203-444)
[2023-05-23 06:14] LABS: D-Dimer Quantitative (DVT/PE) < 0.27 FEU/ug/m (0.27-0.49)
[2023-05-23 06:40] LABS: ALB/GLOB Ratio 1.2 RATIO (0.9-2.4); AST(SGOT) 9 U/L (15-37); Alanine Aminotransfer ALT/SGPT 35 U/L (16-61); Albumin, Serum 4.2 g/dL (3.2-5.0); Alkaline Phosphatase 42 U/L (45-117); Anion Gap 5 (5-15); BUN 16 mg/dL (7-18); BUN/Creat Ratio 17.8 RATIO (10-20); Calcium,Total 9.3 mg/dL (8.5-10.1); Chloride 105 mmol/L (98-107); EST Glomerular Filtration Rate 112 mL/min (>60); Est Glom Filt Rate - Afr Amer 136 mL/min (>60); Estimated Creatinine Clearance 131.66 ml/min; Globulin 3.5 g/dL (2.2-4.2); Glucose 140 mg/dL (74-106); Potassium 4.3 mmol/L (3.5-5.1); Protein, Total 7.7 g/dL (6.4-8.2); Sodium Level 137 mmol/L (136-145)
[2023-05-23 06:59] LABS: Platelet Estimate MKD DEC (ADEQ)
--- NOTE | 2023-05-23 08:29 | ONC.PN.INPT ---
Subjective Subjective No complaints this am. Says legs feel better--not as sore. No bleeding. No new ecchymosis. Physical Exam Cardio regular rhythm Skin Skin Narrative: No obvious change in pattern of ecchymoses. Vital Signs Temperature 98.1 F 05/23/23 07:22 Temperature Source Oral 05/23/23 07:22 Pulse Rate 74 05/23/23 07:22 Respiratory Rate 16 05/23/23 07:22 Blood Pressure 118/96 H 05/23/23 07:22 Blood Pressure Mean 103 05/23/23 07:22 Blood Pressure Source Monitor 05/23/23 07:22 Blood Pressure Position Semi-Fowlers 05/23/23 07:22 Blood Pressure Location Right Arm 05/23/23 07:22 Pulse Ox 96 05/23/23 08:25 Oxygen Delivery Method Room Air 05/23/23 08:25 Laboratory Results - last 24 hr 05/21/23 20:00: Haptoglobin 38 05/22/23 06:35: Immature Plt Fraction 22.5 H, Retic Count 1.58 H, Immature Retic Fraction 6.90, Retic Hgb Equivalent 35.1 H, Total Creatine Kinase 66, Hepatitis C Antibody Non-Reactive, HIV 1&2 Antibody Non-Reactive 05/22/23 14:50: Fibrinogen 200 L 05/23/23 02:30: Blood Type Cancelled 05/23/23 02:30: Blood Type O POSITIVE, A1 Antigen Typing Cancelled, Rho(D) Type Cancelled, Antibody Screen NEGATIVE 05/23/23 05:30: WBC 8.2, RBC 4.99, Hgb 15.5, Hct 45.3, MCV 90.8, MCH 31.1, MCHC 34.2, RDW Std Deviation 42.2, RDW Coeff of Nba 12.8, Plt Count 48 L*, MPV 11.9, Immature Gran % (Auto) 0.600, Neut % (Auto) 80.9 H, Lymph % (Auto) 14.5 L, [place] % (Auto) 3.9, Eos % (Auto) 0.0, Baso % (Auto) 0.1, Absolute Neuts (auto) 6.6, Absolute Lymphs (auto) 1.19, Nucleated RBC % 0, Diff Path Review May , Platelet Estimate MKD DEC, Fibrinogen 163 L, D-Dimer Quant (PE/DVT) < 0.27 L, Sodium 137, Potassium 4.3, Chloride 105, Carbon Dioxide 27.0, Anion Gap 5, BUN 16, Creatinine 0.90, Estim Creat Clear Calc 131.66, Est GFR (MDRD) Af Amer 136, Est GFR (MDRD) Non-Af 112, BUN/Creatinine Ratio 17.8, Glucose 140 H, Calcium 9.3, Total Bilirubin 0.80, AST 9 L, ALT 35, Alkaline Phosphatase 42 L, Total Protein 7.7, Albumin 4.2, Globulin 3.5, Albumin/Globulin Ratio 1.2 Assessment & Plan Assessment/Plan (1) Hypofibrinogenemia: (2) Severe thrombocytopenia: (3) Ecchymoses, spontaneous: PLAN: Impression: -Severe thrombocytopenia associated with malaise and general muscle aches/weakness ~1 month. -Loss of appetite and weight loss. -PBS reviewed by both Drs. Randall and Cecilio--A few atypical lymphocytes, no schistocytes, no immature granulocytes and no blasts. -LDH remained normal. Hgb stable at ~15.5 g/dL. -Positive urobilinogen on admit. -Normal coagulation times x2. -Fibrinogen fluctuating but low. -dDimer normal. -Hep C and HIV negative. -Serum CK normal. -Platelets up to 48K just prior to platelet transfusion this morning. Plan: -Awaiting thrombin time. -Continue dexamethasone 40 mg PO daily x4 days (day #2 today). -Monitor CBC, coagulation times, fibrinogen, dDimer daily. -Scheduled for bone marrow biopsy this am. Discussed procedure and rationale wiht him. -If preliminary on bone marrow analysis (hopefully tomorrow) does not suggest acute leukemia and platelet count continues to increase then patient may be discharged with instructions to complete the 4-day course of dexamethasoneand outpatient follow-up can be arranged for early next week.
--- NOTE | 2023-05-23 09:00 | CT_ITS ---
PROCEDURE: CT GUIDED bone marrow biopsy and aspiration of the left iliac bone. DATE: May 23, 2023. INDICATION: Male, 23 years old. Thrombocytopenia. PHYSICIAN: Houston Larios M.D. RADIATION DOSAGE (If Supplied By Facility): CTDIvol = ( 16 ) mGy, DLP = ( 265.11 ) mGycm. Individualized dose optimization techniques were utilized. PROCEDURE: The risks, benefits, and alternatives to the procedure were explained to the patient. The specific risk of hemorrhage requiring further treatment or intervention was detailed and accepted. Follow-up instructions were discussed with the patient as well. Written informed consent was obtained. The patient was brought into the CT suite and placed in the prone position. . An appropriate entry site was identified. The overlying skin was prepped and draped in the usual sterile fashion. 1% lidocaine was administered subcutaneously for local anesthesia. Conscious sedation was performed. The patient received 2 mg of Versed and 50 mcg of fentanyl intravenously. Conscious sedation was started at 9:30 AM and terminated at 9:47 AM. The patient was independently monitored by the department. Under CT guidance, a a bone marrow biopsy and bone marrow aspirate were performed utilizing 11-gauge bone marrow biopsy kit The specimens were then placed in the appropriate fluid and transported to the laboratory for analysis. Hemostasis was obtained. The patient tolerated the procedure well without immediate complications. CT/Biopsy/Inj or Needle Placement IMPRESSION: Successful CT guided bone marrow biopsy and aspirate of the posterior left iliac bone, as described above. Conscious sedation protocol was followed. Electronically Signed: Houston Larios MD at 10:28 EDT ,
[2023-05-23] MEDS: Midazolam 2 MG/2 ML Syringe IV ×2 (09:30→09:37)
[2023-05-23] MEDS: fentaNYL 100 MCG/2 ML Ampul IV ×2 (09:31→09:37)
[2023-05-23] MEDS: Lidocaine 2% (20 ml mdv) 20 ML Vial INFILT (09:40)
[2023-05-23 10:05] LABS: Pathologist Review Reviewed
[2023-05-23 10:06] LABS: Pathologist Review Reviewed
[2023-05-23] MEDS: Acetaminophen 325 MG Tablet 650 MG PO ×2 (10:48→22:31)
[2023-05-23] MEDS: dexAMETHasone 4 MG Tablet 40 MG PO (10:48)
[2023-05-23 12:55] LABS: Pathologist Review Reviewed
--- NOTE | 2023-05-23 13:12 | PRO.PCM_ITS ---
Procedure Report CLINICAL HISTORY: [ ] PROCEDURE: Arthrogram- [ ] CONSENT: The procedure as well as the benefits and possible complications including bleed ing and infection were explained to the [ ]. Informed consent was obtained. FLUOROSCOPY TIME (if supplied) : ([ ])minutes/seconds. [ ] Injection Information: [ ] Number of images obtained: [ ] TECHNIQUE: (All elements of maximal sterile barrier technique followed, including US elements as applicable) The patient was in the supine position. The overlying skin was prepped and draped in the usual sterile fashion. Following local anesthetic application and under direct fluoroscopic guidance, a 22-gauge spinal needle was placed into the [ ]. 2 cc of Isovue 300 was injected for confirmation. Following this, 10 cc of MRI contrast was injected. Patient tolerated procedure well. ORDER #: IMPRESSION: [ ] Assessment & Plan Assessment/Plan (1) Ecchymoses, spontaneous: (2) Severe thrombocytopenia: (3) Muscular aches: (4) Hypofibrinogenemia: PLAN: Plan #SEvere thrombocytopenia * platelets are up to 48 today, from 22 yesterday * has associated multiple ecchymotic bruises, and had some bleeding from his gums when brushing his teeth today * hematology on board; 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 * peripheral blood smear as reviewed by insole stiffener showed many elliptical rbcs and several schistocytes appreciate only towards the feathered edge, nad no pltelet clumping. * peripheral smear reviewd by pathologists who didnt see any schistocytes. * bilirubin and LDH were normal, and he now has low fibrinogen * Fibrinogen remains low, and D dimer is low also * HIV an HEp C tests ordered and negative. * awaiting transfer to tertiary facility for close monitoring and further workup as needed * had bone marrow biopsy done today. Received a unit of platelets before bone biopsy today. * on dexamethasone 40mg daily x 4 days. day is day 2. * # Chronic cannabinoid use: encouraged to quit DVT prophylaxis; SCDs.No anticoagulation in light of severe thrombocytopenia
--- NOTE | 2023-05-23 13:12 | PCM.OP.PRO ---
Procedure Report CLINICAL HISTORY: [ ] PROCEDURE: Arthrogram- [ ] CONSENT: The procedure as well as the benefits and possible complications including bleeding and infection were explained to the [ ]. Informed consent was obtained. FLUOROSCOPY TIME (if supplied) : ([ ])minutes/seconds. [ ] Injection Information: [ ] Number of images obtained: [ ] TECHNIQUE: (All elements of maximal sterile barrier technique followed, including US elements as applicable) The patient was in the supine position. The overlying skin was prepped and draped in the usual sterile fashion. Following local anesthetic application and under direct fluoroscopic guidance, a 22-gauge spinal needle was placed into the [ ]. 2 cc of Isovue 300 was injected for confirmation. Following this, 10 cc of MRI contrast was injected. Patient tolerated procedure well. 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 peripheral blood smear as reviewed by setter up showed many elliptical rbcs and several schistocytes appreciate only towards the feathered edge, nad no pltelet clumping. peripheral smear reviewd by pathologists who didnt see any schistocytes. bilirubin and LDH were normal, and he now has low fibrinogen Fibrinogen remains low, and D dimer is low also HIV an HEp C tests ordered and negative. awaiting transfer to tertiary facility for close monitoring and further workup as needed had bone marrow biopsy done today. Received a unit of platelets before bone biopsy today. on dexamethasone 40mg daily x 4 days. day is day 2. # Chronic cannabinoid use: encouraged to quit DVT prophylaxis; SCDs.No anticoagulation in light of severe thrombocytopenia
--- NOTE | 2023-05-23 14:06 | PN_ITS ---
Subjective Subjective Patient seen and examined. He felt well today and had no active complaints. He had an uneventful night. He hasnt had any worsening of the bruises and hasnt noted any bleeding. Review of systems is otherwise negative. Platelets came up to 48 today, even before he got a unit of platelets transfused. Review of systems is otherwise negative. Objective Data Objective Data Vital Signs: Vital Signs Temp Pulse Resp BP Pulse Ox O2 Del Method O2 Flow Rate 97.5 F L 59 L 18 125/65 H 98 Room Air 34 05/23/23 10:45 05/23/23 10:45 05/23/23 10:45 05/23/23 10:45 05/23/23 10:45 05/23/23 10:45 05/23/23 09:30 Oxygen Flow Rate (L/min) [4] 34 Oxygen Delivery Method [4] Room Air Oxygen Delivery Method [3] Room Air Oxygen Delivery Method [2] Room Air Oxygen Delivery Method [1 ( Room Air Initial Baseline)] Oxygen Delivery Method Room Air Weight: 159 lb 6.307 oz Body Mass Index (BMI) 22.8 Intake & Output: Intake and Output for Last 24 Hours 05/21/23 05/22/23 05/23/23 23:59 23:59 23:59 Intake Total 960 / 1460 705.5 / 705.5 Balance 960 / 1460 705.5 / 705.5 Medical Nutrition Assessment Dietitian: Malnutrition Criteria Met Start: 05/22/23 13:29 Freq: Status: Active Protocol: Document 05/22/23 13:29 RMA (Rec: 05/22/23 13:29 RMA [id number]) Nutrition Malnutrition Evidence of Malnutrition Exists Yes Malnutrition (severe): Acute Illness/Injury Evidenced By Suboptimal Energy Intake ( Severe),Weight Loss (Severe) Clinical Problem Acute Disease or Injury Related Malnutrition Etiology Severe protein-calorie malnutrition in the context of acute illness related to inadequate oral/energy/protein intake Signs/Symptoms as evidenced by ~21% weight loss x 1 year and PO meeting less than 50% estimated nutrition needs x past 6 months Status Active Problem Recommendation Dietitian Recommendations/Changes Continue Regular Diet as ordered. Will continue 120mL ensure plus high protein 3 times per day w/ medpass as ordered. Will add extra 2 oz meat/ protein Q meal tray and milkshakes w/ meals per pt request. Lab / Micro Data 05/23/23 05:30 05/23/23 05:30 Labs: Laboratory Results - last 24 hr 05/21/23 18:20: Diff Path Review Reviewed 05/21/23 20:00: Haptoglobin 38 05/22/23 06:35: Diff Path Review Reviewed 05/22/23 14:50: Fibrinogen 200 L 05/23/23 02:30: Blood Type Cancelled 05/23/23 02:30: Blood Type O POSITIVE, A1 Antigen Typing Cancelled, Rho(D) Type Cancelled, Antibody Screen NEGATIVE 05/23/23 05:30: WBC 8.2, RBC 4.99, Hgb 15.5, Hct 45.3, MCV 90.8, MCH 31.1, MCHC 34.2, RDW Std Deviation 42.2, RDW Coeff of Nba 12.8, Plt Count 48 L*, MPV 11.9, Immature Gran % (Auto) 0.600, Neut % (Auto) 80.9 H, Lymph % (Auto) 14.5 L, [place] % (Auto) 3.9, Eos % (Auto) 0.0, Baso % (Auto) 0.1, Absolute Neuts (auto) 6.6, Absolute Lymphs (auto) 1.19, Nucleated RBC % 0, Diff Path Review Reviewed, Platelet Estimate MKD DEC, Fibrinogen 163 L, D-Dimer Quant (PE/DVT) < 0.27 L, Sodium 137, Potassium 4.3, Chloride 105, Carbon Dioxide 27.0, Anion Gap 5, BUN 16, Creatinine 0.90, Estim Creat Clear Calc 131.66, Est GFR (MDRD) Af Amer 136, Est GFR (MDRD) Non-Af 112, BUN/Creatinine Ratio 17.8, Glucose 140 H, Calcium 9.3, Total Bilirubin 0.80, AST 9 L, ALT 35, Alkaline Phosphatase 42 L, Total Protein 7.7, Albumin 4.2, Globulin 3.5, Albumin/Globulin Ratio 1.2 Radiography Diagnostic Testing: Radiology Impression Biopsy CT 05/23/23 09:00 IMPRESSION: Successful CT guided bone marrow biopsy and aspirate of the posterior left iliac bone, as described above. Conscious sedation protocol was followed. Electronically Signed: Houston Larios MD at 10:28 EDT , Physical Exam Const alert, oriented x3 and no apparent distress General Appearance: cooperative and well developed HEENT normocephalic, head/scalp atraumatic, TM's normal bilaterally, moist oral mucous membranes, oropharynx normal and gingiva normal Eyes PERRL and EOMs intact bilaterally Neck no lymphadenopathy and supple Lymph Lymphatic: no lymphadenopathy noted and no lymphedema noted Resp normal respiratory effort, normal air movement and clear to auscultation bilaterally Cardio regular rate, regular rhythm, S1 normal heart sound, S2 normal heart sound and no murmurs GI normal to inspection, nondistended, normoactive bowel sounds, soft to palpation, non-tender and non-distended Extremity normal capillary refill, no clubbing, cyanosis or edema and no calf tenderness Skin Skin Narrative: has multiple ecchymotic patches over his arms and legs, and torso. Has a significant bruise over the left breast. Neuro CN's II-XII intact bilaterally, no focal motor deficits, no sensory deficits noted and deep tendon reflexes 2+ bilaterally Motor Exam: strength 5/5 throughout Psych thought process normal, cooperative and affect normal Appearance: appropriate Assessment & Plan Assessment/Plan (1) Ecchymoses, spontaneous: (2) Severe thrombocytopenia: (3) Muscular aches: (4) Hypofibrinogenemia: PLAN: Plan #SEvere thrombocytopenia * platelets are up to 48 today, from 22 yesterday * has associated multiple ecchymotic bruises, and had some bleeding from his gums when brushing his teeth today * hematology on board; 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 * peripheral blood smear as reviewed by machine lay out worker showed many elliptical rbcs and several schistocytes appreciate only towards the feathered edge, nad no pltelet clumping. * peripheral smear reviewd by pathologists who didnt see any schistocytes. * bilirubin and LDH were normal, and he now has low fibrinogen * Fibrinogen remains low, and D dimer is low also * HIV an HEp C tests ordered and negative. * awaiting transfer to tertiary facility for close monitoring and further workup as needed * had bone marrow biopsy done today. Received a unit of platelets before bone biopsy today. * on dexamethasone 40mg daily x 4 days. day is day 2. * # Chronic cannabinoid use: encouraged to quit DVT prophylaxis; SCDs.No anticoagulation in light of severe thrombocytopenia Charges/Coding Visit Charges Inpatient E&M: 04302 Subs Hosp L2
[2023-05-24 02:00] VITALS: BP 129/71; PULSE 76; RESP 16; TEMP 36.9; O2SAT 100
[2023-05-24 06:00] VITALS: BMI 24.3
[2023-05-24 06:41] LABS: Absolute Lymphocyte Count 1.23 X10^3/uL (0.83-4.51); Absolute Neutrophil Count 10.2 X10^3/uL (2.0-7.7); Basophil# 0.01 X10^3/uL; Basophil% 0.1 % (0-1); Hemoglobin 14.3 g/dL (13.0-16.5); Lymphocyte # 1.23 X10^3/ul (0.83-4.51); Lymphocyte % 10.1 % (19-41); Mean Corpuscular Volume 91.1 fL (80-94); Mean Platelet Vol. 12.2 fl (6.2-12.0); Monocyte# 0.66 X10^3/uL; Monocyte% 5.4 % (0-10); NRBC Flagged by Analyzer 0 % (0-5); Neutrophil # 10.24 X10^3/uL (2.7-7.7); Neutrophil % 83.7 % (47-70); POSITIVE COUNT YES; Platelet Count 90 K/mm3 (150-450); RBC Distribution Width CV 12.9 % (11.6-14.6); RBC Distribution Width SD 42.6 fl (35.1-43.9); Red Blood Count 4.61 M/mm3 (4.6-6.2); White Blood Count 12.2 K/mm3 (4.4-11.0)
[2023-05-24 06:44] LABS: Differential Indicated SCAN CRITERIA MET
[2023-05-24 07:01] LABS: Platelet Estimate MOD DEC (ADEQ)
[2023-05-24 07:02] LABS: Anion Gap 6 (5-15); BUN 21 mg/dL (7-18); BUN/Creat Ratio 23.2 RATIO (10-20); Calcium,Total 8.7 mg/dL (8.5-10.1); Chloride 108 mmol/L (98-107); Creatinine, Serum 0.91 mg/dL (0.70-1.30); EST Glomerular Filtration Rate 111 mL/min (>60); Est Glom Filt Rate - Afr Amer 134 mL/min (>60); Estimated Creatinine Clearance 131.47 ml/min; Glucose 134 mg/dL (74-106); Potassium 3.9 mmol/L (3.5-5.1); Sodium Level 139 mmol/L (136-145)
[2023-05-24 08:00] VITALS: BP 124/70; PULSE 78; RESP 16; TEMP 36.9; O2SAT 96
[2023-05-24] MEDS: dexAMETHasone 4 MG Tablet 40 MG PO (08:17)
--- NOTE | 2023-05-24 09:27 | CASEMGMT ---
Addendum entered by Berta Rudolph 05/24/23 11:36: Social Work SW spoke w/Asuncion from [facility], she will try to see pt this afternoon, she came to see pt this morning and pt was sleeping. BARBI Sosa Original Note: Social Work SW sent an email to [facility] asking if they can see pt. BARBI Sosa
--- NOTE | 2023-05-24 09:50 | CASEMGMT ---
Addendum entered by Nini Hyatt 05/24/23 15:14: Discharge order is in. Dexamethasone has been e-scribed to [facility] retail pharmacy. Call to the pharmacy. Cost is $18.32. RN CM to room. Pt states this is affordable and he would like to pick it up @ the pharmacy. Shannon ANGEL RN CM Original Note: RN?CM?MEDIA SALES EXECUTIVE?CM?to room to meet with patient for initial transition planning/care coordination?assessment.?RN?CM?introduced self and role at [facility].? Pt voices understanding and consents to?assessment?at this time.? Pt resting in bed in no distress at this time.? Pt is A/O at this time and answers all questions appropriately.?? Care providers, pharmacy, and demographics verified/updated at this time. PCP: No PCP. SW has provided pt w/info on [facility], which is at bedside. Specialists: None Preferred Pharmacy: [facility] Retail Insurance: None Prescription Benefit:? None. Pt states, depending on cost of Rx's @ dc, he may be able to afford them, but he is not sure. Living Will/HPOA:?Pt does not currently have LW/HCPOA and declines info at this time. LNOK: Mother, Mable. Father. 6 siblings. Living Arrangements: Lives w/his parents and 2 siblings in one-story home. Independent. Transportation:?Pt states drives self and states no transportation concerns at this time.? States either a friend or his mom will take him home @ d/c. DME: ? Denies using any DME and denies needs.? HHC/SNF: No hx of either. No needs identified. Pt wishes to return home and states has no concerns with going home at time of discharge.? CM?to follow for any further discharge planning/needs.? Pt voices no further concerns/needs at this time.? Advised pt to ask for?CM?if any further questions/concerns/needs arise.? Voices understanding. PLAN:??Home. Follow for possible Rx assist @ d/c. Shannon ANGEL?RN?CM
[2023-05-24 10:16] VITALS: O2SAT 94
[2023-05-24 13:08] LABS: HCV Quant. RNA PCR HCV Not Detected IU/mL (.); Thrombin Time 20.6 sec (0.0-23.0)
[2023-05-24 14:00] VITALS: BP 110/54; PULSE 78; RESP 16; TEMP 36.6; O2SAT 100
--- NOTE | 2023-05-24 14:56 | DCINST_ITS ---
Discharge Instructions Diet Discharge Diet: No restrictions Activity Discharge Activity: Return to Normal Activity Dressing / Incision Call your doctor if you observe: Fever of 101 or Higher, Shortness of breath, Dizziness, Swelling in the ankles, Chest pain, Increased palpitations (irregular heartbeat) and - (easy bruising, prolonged bleeding) Follow Up Care Test Results: Test results from this visit will be discussed in further detail at your follow- up appointment, if applicable. Discharge Plan Admission Admit Date/Time: 05/22/23 01:20 Primary Reason for Your Visit: thrombocytopenia Attending Provider: Kay Yoo Primary Care Provider: Care Physician,No Primary Consulting Providers: Abhishek Dey; Fanta Heard; Radha Rice; Daniel Harris; Killian Elam; Karol Mari Instructions Patient Instructions: VANNESA WELLINGTON Bone Marrow Aspiration and Biopsy Discharge Orders/Prescriptions Prescriptions: New dexamethasone 4 mg Tablet 40 mg PO DAILY 1 Days Qty: 10 0RF Referrals / Follow Up: Killian Elam DO [Med Staff - Active Staff] - Within 1 Week (Dr Elam's office to call patient to get him in to the office on Saturday or Saturday next week ) Jason Gongora MD [Non-Staff] - Within 2 Weeks Care Physician,No Primary [Primary Care Provider] - Disposition Disposition (needs filled in before D/C Order can be placed): Home, Self Care
--- NOTE | 2023-05-24 14:57 | PCM.DC.SUM ---
Providers Date of Admission: 05/22/23 Date of Discharge: 05/24/23 Primary Care Physician: Francie Primary Care Phys Consultations 05/22/23 06:02 Consult: Oncology/Hematology Routine Consulting Provider: CINDA Hem/Onc Lorenza Reason for Consult: Acute Thrombocytopenia EMERGENT Consult: No MD Notified: Yes Date Notified: 05/22/23 Time Notified: 01:20 Method of Notification: ED Physician Initiated Reason For Visit: ACUTE THROMBOCYTOPENIA Diagnosis Discharge Diagnosis (1) Ecchymoses, spontaneous: Status: Acute Code(s): R23.3 - Spontaneous ecchymoses (2) Severe thrombocytopenia: Status: Acute Code(s): D69.6 - Thrombocytopenia, unspecified (3) Muscular aches: Status: Acute Code(s): M79.10 - Myalgia, unspecified site (4) Hypofibrinogenemia: Status: Acute Code(s): D68.8 - Other specified coagulation defects Plan #SEvere thrombocytopenia platelets are up to 48 today, from 22 yesterday has associated multiple ecchymotic bruises, and had some bleeding from his gums when brushing his teeth today hematology on board; 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 peripheral blood smear as reviewed by precision instrument maker and repairer showed many elliptical rbcs and several schistocytes appreciate only towards the feathered edge, nad no pltelet clumping. peripheral smear reviewd by pathologists who didnt see any schistocytes. bilirubin and LDH were normal, and he now has low fibrinogen Fibrinogen remains low, and D dimer is low also HIV an HEp C tests ordered and negative. awaiting transfer to tertiary facility for close monitoring and further workup as needed had bone marrow biopsy done today. Received a unit of platelets before bone biopsy today. on dexamethasone 40mg daily x 4 days. day is day 2. # Chronic cannabinoid use: encouraged to quit DVT prophylaxis; SCDs.No anticoagulation in light of severe thrombocytopenia Medications at Discharge Home Medications dexamethasone 4 mg tablet 40 mg (10 x 4 mg) PO DAILY 1 day #10 tabs 05/24/23 Hospital Course Operations None Procedures - (bone marrow biopsy) Summary of Care Provided Minutes Spent on Discharge: 55 Hospital Course: Patient is a 23 y/o male with a PMH as outlined who was admitted via the ED on 05/22/2023 with a complaint of bruising, fatigue, malaise and weight loss as well as night sweats and easy and extensive bruising. He denied any recent illness or change in meds. On admission, he was found to have platelets of 24, wbc of 6.5 and hemoglobin of 15.5. INR was normal. Peripheral blood smear showed many elliptical rbc's and several schistocytes only towards feathered edge. Patient was seen on the evening of admission by the precision instrument maker and repairer. 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 Recommendation was therefore for transfer to tertiary facility. [facility] were both contacted, and he was accepted at [facility] pending bed availability. Platelets trended down further to 22. LDH nd bilirubin were WNL, and he also had low fibrinogen. 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 Hematology requested for pathology to review the slides, which were negative for schistocytes. Hep C nd HIV tests were negative. Patient was started on dexamethasone 40mg daily. He had a bone marrow biopsy o/a of concerns about acute promyelocytic leukemia. Bone marrow biopsy showed normocellular marrow with trilineage hematopoiesis and megakaryocytic hyperplasia and dysplasia. There was no evidence of blasts. Patient was transfused a unit of platelets before he had the bone marrow biopsy. Platelets came up to 48 even before he was transfused a unit of platelets. On the day of discharge, platelets were up to 90. He was to be on the p.o. dexamethasone 40 mg daily for 4 days in total. He was therefore discharged on 05/24/2023 with a prescription for p.o. dexamethasone 40 mg for 1 day to complete the 4-day course. He is to follow-up with his primary care doctor within 1 week and is to follow-up with hematology within [address] Elam, his office will call patient to have him scheduled to be seen on 05/27/2023 or 05/28/2023. Patient seen and examined prior to discharge. He felt better and had no complaints. He had an uneventful night and review of symptoms otherwise negative. Labs and vitals reviewed. Home medication reviewed and reconciled. Patient updated about his bone marrow biopsy results. Physical Exam Const alert, oriented x3 and no apparent distress General Appearance: cooperative, comfortable and well kempt HEENT normocephalic, head/scalp atraumatic, hearing grossly normal bilaterally, moist oral mucous membranes, oropharynx normal and gingiva normal Mouth: oral and palatal mucosa normal Eyes PERRL and EOMs intact bilaterally Neck no lymphadenopathy and supple Lymph Lymphatic: no lymphadenopathy noted and no lymphedema noted Resp normal respiratory effort, normal air movement and clear to auscultation bilaterally Cardio regular rate, regular rhythm, S1 normal heart sound, S2 normal heart sound and no murmurs GI normal to inspection, nondistended, normoactive bowel sounds, soft to palpation, non-tender and non-distended Extremity normal capillary refill, no clubbing, cyanosis or edema and no calf tenderness Skin Skin Narrative: multiple bruises over torso, back and arms as well as legs have improved markedly Neuro oriented x3, CN's II-XII intact bilaterally, moves all extremities, no focal motor deficits, no sensory deficits noted and deep tendon reflexes 2+ bilaterally Sensorium / Orientation: awake and alert Motor Exam: strength 5/5 throughout Psych thought process normal, cooperative and affect normal Appearance: appropriate Medical Records Data Medical Nutrition Assessment Dietitian: Malnutrition Criteria Met Start: 05/22/23 13:29 Freq: Status: Active Protocol: Document 05/22/23 13:29 RMA (Rec: 05/22/23 13:29 RMA [id number]) Nutrition Malnutrition Evidence of Malnutrition Exists Yes Malnutrition (severe): Acute Illness/Injury Evidenced By Suboptimal Energy Intake ( Severe),Weight Loss (Severe) Clinical Problem Acute Disease or Injury Related Malnutrition Etiology Severe protein-calorie malnutrition in the context of acute illness related to inadequate oral/energy/protein intake Signs/Symptoms as evidenced by ~21% weight loss x 1 year and PO meeting less than 50% estimated nutrition needs x past 6 months Status Active Problem Recommendation Dietitian Recommendations/Changes Continue Regular Diet as ordered. Will continue 120mL ensure plus high protein 3 times per day w/ medpass as ordered. Will add extra 2 oz meat/ protein Q meal tray and milkshakes w/ meals per pt request. Weight / BMI Weight Weight: 170 lb 6.677 oz Body Mass Index (BMI) 24.3 ABG / Lab / Microbiology Data 05/24/23 05:55 05/24/23 05:55 Laboratory: Laboratory Results - last 24 hr 05/22/23 06:35: Thrombin Time 20.6, HCV RNA Quant (PCR) HCV Not Detected, HCV RNA (PCR) IU log10 TNP, HCV RNA PCR Test Info Comment 05/24/23 05:55: WBC 12.2 H, RBC 4.61, Hgb 14.3, Hct 42.0, MCV 91.1, MCH 31.0, MCHC 34.0, RDW Std Deviation 42.6, RDW Coeff of Nba 12.9, Plt Count 90 L, MPV 12.2 H, Immature Gran % (Auto) 0.700, Neut % (Auto) 83.7 H, Lymph % (Auto) 10.1 L, [place] % (Auto) 5.4, Eos % (Auto) 0.0, Baso % (Auto) 0.1, Absolute Neuts (auto) 10.2 H, Absolute Lymphs (auto) 1.23, Nucleated RBC % 0, Platelet Estimate MOD DEC, Sodium 139, Potassium 3.9, Chloride 108 H, Carbon Dioxide 25.0, Anion Gap 6, BUN 21 H, Creatinine 0.91, Estim Creat Clear Calc 131.47, Est GFR (MDRD) Af Amer 134, Est GFR (MDRD) Non-Af 111, BUN/Creatinine Ratio 23.2 H, Glucose 134 H, Calcium 8.7 D/C Instructions Discharge Diet: No restrictions Discharge Activity: Return to Normal Activity Weight Bearing Status: Weight bearing as tolerated Call your doctor if you observe: Fever of 101 or Higher, Shortness of breath, Dizziness, Swelling in the ankles, Chest pain, Increased palpitations (irregular heartbeat) and - (easy bruising, prolonged bleeding) Meaningful Use Info Meaningful Use Diagnoses (Choose all that apply): None applicable Discharge Plan Admission Admit Date/Time: 05/22/23 01:20 Primary Reason for Your Visit: thrombocytopenia Attending Provider: Kay Yoo Primary Care Provider: Care Physician,No Primary Consulting Providers: Abhishek Dey; Fanta Heard; Radha Rice; Daniel Harris; Killian Elam; Karol Mari Instructions Patient Instructions: VANNESA WELLINGTON Bone Marrow Aspiration and Biopsy Discharge Orders/Prescriptions Prescriptions: New dexamethasone 4 mg Tablet 40 mg PO DAILY 1 Days Qty: 10 0RF Referrals / Follow Up: Killian Elam DO [Med Staff - Active Staff] - 05/27/23 8:30 am (Go to [place] lab to have lab work drawn, will have standing orders there. Once lab work is done, then go to oncology to check in. ) Jason Gongora MD [Non-Staff] - Within 2 Weeks Care Physician,No Primary [Primary Care Provider] - Disposition Disposition (needs filled in before D/C Order can be placed): Home, Self Care Charges/Coding Visit Charges Inpatient E&M: 50720 Disch Hosp >30min
--- NOTE | 2023-05-24 15:20 | PHA.DC.MC.R ---
Pharmacy [facility] has performed discharge medication reconciliation and counseling for this patient. 1. DEXAMETHASONE 40MG PO X1 (05/25/23) The patient's discharge medication list was reviewed for discrepancies and discrepancies were resolved. The patient was counseled on the following discharge medications and changes in medications for homegoing were reviewed. The Reason for Use, instructions for use, and potential side effects were reviewed for all new medications. The patient's questions regarding all of their medications were answered. The patient was able to verbally demonstrate an understanding of their discharge medications. Patient counseled by pharmacy operations coordinatorRose. Medications at Discharge Home Medications dexamethasone 4 mg tablet 40 mg (10 x 4 mg) PO DAILY 1 day #10 tabs 05/24/23
--- NOTE | 2023-05-24 15:41 | NURSING ---
Dr Yoo called and spoke to pt and told him that it is not appearing as leukemia but pt should keep follow up w/ dr kruger on saturday
--- NOTE | 2023-05-24 15:43 | NURSING ---
per pt permission, attempt to contact pt mother unsuccessful-she is no longer at work
[2023-05-24 16:09] LABS: Anti-Cardiolipin Ab, IgG, Qn < 9 GPL U/mL (0-14); Anti-Cardiolipin Ab, IgM, Qn 11 MPL U/mL (0-12); Beta-2-Glycoprotein I IgA <9 (0-25); Beta-2-Glycoprotein I IgG <9 (0-20); Beta-2-Glycoprotein I IgM <9 (0-32)
[2023-06-04 09:04] LABS: Miscellaneous Lab Procedure SEE PATH REPORT; Miscellaneous Lab Procedure 2 SEE PATH REPORT
[2023-06-04 09:05] LABS: Miscellaneous Lab Procedure 3 SEE PATH REPORT; Miscellaneous Lab Procedure 4 SEE PATH REPORT
== END 2023-05-24 15:53 | disposition home or self-care (01) | DRG 813 ==
LOC: ED 05-22 02:47 → MS3 05-22 05:41
PROVIDERS: Internal Medicine Hematology & Oncology; Admitting Provider Family Medicine; Emergency Provider Emergency Medicine; Visit Provider Student in an Organized Health Care Education/Training Program
DX: D69.3 Immune thrombocytopenic purpura (principal); E43 Unspecified severe protein-calorie malnutrition; D68.2 Hereditary deficiency of other clotting factors; F12.99 Cannabis use, unspecified with unspecified cannabis-induced disorder; Z68.24 Body mass index [BMI] 24.0-24.9, adult; Z80.6 Family history of leukemia
CPT/HCPCS: 36415; 77012; 80048; 80053; 81001; 82550; 83010; 83615; 85025; 85045; 85379; 85384; 85610; 85670; 85730; 86146; 86147; 86703; 86803; 86850; 86900; 86901; 86965; 87522; 88305; 88311; 88313; 97802; 99156; 99284; J7050; P9035; A4216

== ENCOUNTER 2023-12-06 09:25 | Emergency (ER) | payer SELFPAY ==
[2023-12-06 09:26] VITALS: BP 131/79; PULSE 97; RESP 18; TEMP 36.9; O2SAT 100; BMI 24.0
[2023-12-06] MEDS: Morphine 4 MG/ML Syringe IV (11:31)
[2023-12-06] MEDS: Ondansetron 4 MG/2 ML Vial IV (11:31)
--- NOTE | 2023-12-06 11:34 | EX.ED.DYSGE1 ---
HPI <JAY Sal - Last Filed: 12/06/23 15:47> History of Present Illness Chief Complaint: General Illness Narrative Narrative: Patient presenting today with his mother due to generalized muscle pain that he has had for the past 3 to 4 days that acutely worsened last night. 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 Elam for this. He has received 2 rounds of chemotherapy, last round was 1 week ago. He was supposed to have chemotherapy today but was in too much pain and was told to come to the ED for evaluation. He reports that it feels like, my muscles are ripping. He denies any fevers, chills, shortness of breath, nausea, and vomiting. PFSH <JAY Sal - Last Filed: 12/06/23 15:47> PFSH Medical History Cannabis use disorder Ecchymoses, spontaneous Hypofibrinogenemia Severe thrombocytopenia Home Medications oxycodone-acetaminophen 5 mg-325 mg tablet (Percocet) 1 tab PO Q8H PRN pain 3 days #10 tabs 12/06/23 [Rx Last Taken Unknown] Allergy/AdvReac Type Severity Reaction Status Date / Time No Known Allergies Allergy Verified 12/06/23 10:47 Family History Mother No problems noted. Father No problems noted. Brother Leukemia in remission Surgical History No history of previous surgery Social History household members: none Smoking Status: Never smoker alcohol intake: never substance use type: marijuana ROS <JAY Sal - Last Filed: 12/06/23 15:47> ROS ED Constitutional Constitutional ED: Denies chills or fever(s) Cardiovascular Cardiovascular: Denies chest pain or palpitations Respiratory/Chest Respiratory/Chest: Denies cough or dyspnea Gastrointestinal Gastrointestinal: Denies abdominal pain, nausea or vomiting Musculoskeletal Musculoskeletal: Reports arthralgias, back pain and myalgias Integumentary Denies rash Neurologic Neurologic: Reports weakness; Denies paresthesias EXAM <JAY Sal - Last Filed: 12/06/23 15:47> Physical Exam Const Vital Signs: 12/06/23 09:26 12/06/23 10:43 12/06/23 15:00 Temperature 98.4 F 99.3 F H Temperature Source Temporal Temporal Pulse Rate 97 Respiratory Rate 18 Respiratory Effort Normal Respiratory Pattern Normal Blood Pressure 131/79 H Blood Pressure Mean 96 Pulse Ox 100 Oxygen Delivery Method Room Air Positive well nourished, well developed and no apparent distress General Appearance ED: well developed HEENT Reports normocephalic and head/scalp atraumatic Mouth ED: Yes moist mucous membranes normal Eyes PERRL and EOMs intact bilaterally Neck full ROM and supple Chest Wall inspection of chest normal Resp normal respiratory effort and clear to auscultation bilaterally Cardio regular rate and regular rhythm GI soft to palpation, non-tender, non-distended and no masses Back/Spine normal ROM and normal to inspection Extremity normal to inspection and full ROM Neuro oriented x3, CN's II-XII intact bilaterally, moves all extremities, no focal motor deficits and no sensory deficits noted Sensorium / Orientation: awake and alert Psych mental status grossly normal and thought process normal Skin no rashes or lesions noted and no wounds <Dr. Harvey Singh MD - Last Filed: 12/06/23 15:36> Physical Exam Const Vital Signs: 12/06/23 09:26 12/06/23 10:43 12/06/23 15:00 Temperature 98.4 F 99.3 F H Temperature Source Temporal Temporal Pulse Rate 97 Respiratory Rate 18 Respiratory Effort Normal Respiratory Pattern Normal Blood Pressure 131/79 H Blood Pressure Mean 96 Pulse Ox 100 Oxygen Delivery Method Room Air MDM <JAY Sal - Last Filed: 12/06/23 15:47> [facility] Narrative Medical decision making narrative: Patient presenting due to generalized muscle aches that have been going on for the past 3 to 4 days but worsened last night. He does appear to be uncomfortable. Vitals are unremarkable. Labs will be obtained and he will be given IV morphine and Zofran. Temperature was taken and was 100.4 ?F. COVID, influenza, RSV swab obtained as well as chest x-ray. Workup is unremarkable. Platelets are low chronically. He was given Tylenol for the fever and additional IV morphine. On reexamination he reports improvement of his symptoms. The attending did speak with Dr. Elam who thinks that this is either viral syndrome or serum sickness. He does have a prescription at home for prednisone that he is to take and I will give him pain medication for home. Return instructions discussed. He will be discharged home in stable condition and is comfortable with plan. I have personally performed a face to face assessment of the patient and have reviewed the BREANN Note. I performed a substantive portion of the visit including all aspects of the following. My lovell findings include: History is 23-year-old male on chemotherapy for ITP. Has been for the last 2 weeks. In the last 2 days he just has not felt well has had diffuse body aches both myalgias and arthralgias. Really no other symptoms. Denies fever. Denies vomiting or diarrhea. No dysuria. No rashes. No headache. Exam is [well-appearing 21-year-old male. Vital signs initially were stable and afebrile. On my exam he felt warm I did a repeat oral temperature was 100.4. HEENT exam unremarkable. Posterior pharynx unremarkable. No erythema or exudate. Neck nontender. No meningismus. No lymphadenopathy. Lungs clear to auscultation bilaterally. Heart regular rhythm rate about 100 no murmur. Chest wall and ribs nontender. Abdomen soft nontender. Back nontender. Skin no rashes. No petechiae appropriate. Moving all 4 extremities. Nontender. No edema or cords. Normal range of motion. Neurologically is awake alert no focal motor deficits.] Medical Decision Making [23-year-old undergoing chemotherapy for ITP with a temperature 100.4. Screening labs and initially are negative. With a normal white count of 6. He has chronically low platelets at 82. His H&H are 13 and 39. His electrolytes and kidney function are unremarkable.] Other additions or changes: [Repeat exam at 3:30 patient doing much better. He received some morphine for pain. He received Tylenol for his fever. His workup including blood work and viral studies and strep are all negative. Including his chest x-ray. I spoke to his oncologist Dr. Killian Elam. This may be a viral syndrome. It could be serum sickness. He has prednisone at home which she sometimes forgets to take. He will resume his prednisone he has appointment to see Dr. Killian Masci next week. I discussed all this with the patient and his mom.] Lab Data Labs: Laboratory Results - last 24 hr 12/06/23 10:36 WBC 6.4 RBC 4.51 L Hgb 13.8 Hct 39.7 L MCV 88.0 MCH 30.6 MCHC 34.8 RDW Std Deviation 37.5 RDW Coeff of Nba 11.7 Plt Count 82 L MPV 10.8 Immature Gran % (Auto) 0.600 Neut % (Auto) 73.6 H Lymph % (Auto) 13.6 L [place] % (Auto) 11.6 H Eos % (Auto) 0.3 Baso % (Auto) 0.3 Absolute Neuts (auto) 4.7 Absolute Lymphs (auto) 0.87 Nucleated RBC % 0 Sodium 138 Potassium 3.9 Chloride 104 Carbon Dioxide 25.0 Anion Gap 9 BUN 15 Creatinine 0.98 Estim Creat Clear Calc 118.23 Est GFR (MDRD) Af Amer 123 Est GFR (MDRD) Non-Af 101 BUN/Creatinine Ratio 15.4 Glucose 133 H Calcium 9.3 Radiography Diagnostic Testing: Clinical Impression(s) from Imaging Studies Chest X-Ray 12/06/23 13:49 IMPRESSION: Normal x-ray examination of the chest. Electronically Signed: Houston Larios MD at 14:05 EST , <Dr. Harvey Singh MD - Last Filed: 12/06/23 15:36> [facility] Narrative Medical decision making narrative: Patient presenting due to generalized muscle aches that have been going on for the past 3 to 4 days but worsened last night. He does appear to be uncomfortable. Vitals are unremarkable. Labs will be obtained and he will be given IV morphine and Zofran. I have personally performed a face to face assessment of the patient and have reviewed the BREANN Note. I performed a substantive portion of the visit including all aspects of the following. My lovell findings include: History is 23-year-old male on chemotherapy for ITP. Has been for the last 2 weeks. In the last 2 days he just has not felt well has had diffuse body aches both myalgias and arthralgias. Really no other symptoms. Denies fever. Denies vomiting or diarrhea. No dysuria. No rashes. No headache. Exam is [well-appearing 21-year-old male. Vital signs initially were stable and afebrile. On my exam he felt warm I did a repeat oral temperature was 100.4. HEENT exam unremarkable. Posterior pharynx unremarkable. No erythema or exudate. Neck nontender. No meningismus. No lymphadenopathy. Lungs clear to auscultation bilaterally. Heart regular rhythm rate about 100 no murmur. Chest wall and ribs nontender. Abdomen soft nontender. Back nontender. Skin no rashes. No petechiae appropriate. Moving all 4 extremities. Nontender. No edema or cords. Normal range of motion. Neurologically is awake alert no focal motor deficits.] Medical Decision Making [23-year-old undergoing chemotherapy for ITP with a temperature 100.4. Screening labs and initially are negative. With a normal white count of 6. He has chronically low platelets at 82. His H&H are 13 and 39. His electrolytes and kidney function are unremarkable.] Other additions or changes: [Repeat exam at 3:30 patient doing much better. He received some morphine for pain. He received Tylenol for his fever. His workup including blood work and viral studies and strep are all negative. Including his chest x-ray. I spoke to his oncologist Dr. Killian Elam. This may be a viral syndrome. It could be serum sickness. He has prednisone at home which she sometimes forgets to take. He will resume his prednisone he has appointment to see Dr. Killian Elam next week. I discussed all this with the patient and his mom.] History & Record Review Discussion w/independent historian: Patient and Family Additional record(s) reviewed:: Prior inpatient record, Prior outpatient record, Prior ED visit and Prior labs Lab Data Attestation: I reviewed the patient's lab results. Lab results narrative: CBC normal white count of 6 H&H of 13 and 39. Platelets are low at 82,000 which is his baseline. Electrolytes unremarkable. Normal BUN and creatinine. Rapid strep negative. Chest x-ray normal. No signs of pneumonia. Labs: Laboratory Results - last 24 hr 12/06/23 10:36 WBC 6.4 RBC 4.51 L Hgb 13.8 Hct 39.7 L MCV 88.0 MCH 30.6 MCHC 34.8 RDW Std Deviation 37.5 RDW Coeff of Nba 11.7 Plt Count 82 L MPV 10.8 Immature Gran % (Auto) 0.600 Neut % (Auto) 73.6 H Lymph % (Auto) 13.6 L [place] % (Auto) 11.6 H Eos % (Auto) 0.3 Baso % (Auto) 0.3 Absolute Neuts (auto) 4.7 Absolute Lymphs (auto) 0.87 Nucleated RBC % 0 Sodium 138 Potassium 3.9 Chloride 104 Carbon Dioxide 25.0 Anion Gap 9 BUN 15 Creatinine 0.98 Estim Creat Clear Calc 118.23 Est GFR (MDRD) Af Amer 123 Est GFR (MDRD) Non-Af 101 BUN/Creatinine Ratio 15.4 Glucose 133 H Calcium 9.3 Radiography Chest X-Ray - ED: 1 View, Read by ED Physician, Read by Radiologist, Heart, Lungs, Mediastinum, Bony Structures and No Acute Disease Diagnostic Testing: Clinical Impression(s) from Imaging Studies Chest X-Ray 12/06/23 13:49 IMPRESSION: Normal x-ray examination of the chest. Electronically Signed: Houston Larios MD at 14:05 EST , Chest x-ray, portable, single view interpreted by myself and the radiologist shows no acute abnormality. Normal cardiac silhouette. Normal lung hoskins. No pneumonia. Discharge Plan Triage Chief Complaint: General Illness ED Midlevel Provider: Shantel Piper ED Provider: Harvey Singh Dx/Rx/DC Orders Clinical Impression: Serum sickness, Fever, Viral illness, History of ITP Instructions: ED Viral Syndrome (Adult) Prescriptions: New oxycodone-acetaminophen [Percocet] 5-325 mg tablet 1 tab PO Q8H PRN (Reason: pain) 3 Days Qty: 10 0RF Primary Care Provider: Care Physician,No Primary Referrals: Care Physician,No Primary [Primary Care Provider] - Activity Restrictions/Additional Instructions: Please take the prednisone that was prescribed. Return for any worsening of your symptoms. Follow-up with Dr. Elam. Disposition Disposition: Home, Self Care
[2023-12-06 11:35] LABS: Absolute Lymphocyte Count 0.87 X10^3/uL (0.83-4.51); Absolute Neutrophil Count 4.7 X10^3/uL (2.0-7.7); Basophil# 0.02 X10^3/uL; Basophil% 0.3 % (0-1); Eosinophil# 0.02 X10^3/uL; Eosinophils% 0.3 % (0-5); Hematocrit 39.7 % (40-54); Hemoglobin 13.8 g/dL (13.0-16.5); Lymphocyte # 0.87 X10^3/ul (0.83-4.51); Lymphocyte % 13.6 % (19-41); Mean Corp Hgb Conc 34.8 g/dL (32-36); Mean Corpuscular Hgb 30.6 pg (27.0-32.0); Mean Platelet Vol. 10.8 fl (6.2-12.0); Monocyte# 0.74 X10^3/uL; Monocyte% 11.6 % (0-10); NRBC Flagged by Analyzer 0 % (0-5); Neutrophil # 4.69 X10^3/uL (2.7-7.7); Neutrophil % 73.6 % (47-70); POSITIVE COUNT YES; Platelet Count 82 K/mm3 (150-450); RBC Distribution Width CV 11.7 % (11.6-14.6); RBC Distribution Width SD 37.5 fl (35.1-43.9); Red Blood Count 4.51 M/mm3 (4.6-6.2); White Blood Count 6.4 K/mm3 (4.4-11.0)
[2023-12-06 11:54] LABS: Anion Gap 9 (5-15); BUN 15 mg/dL (7-18); BUN/Creat Ratio 15.4 RATIO (10-20); Calcium,Total 9.3 mg/dL (8.5-10.1); Chloride 104 mmol/L (98-107); Creatinine, Serum 0.98 mg/dL (0.70-1.30); EST Glomerular Filtration Rate 101 mL/min (>60); Est Glom Filt Rate - Afr Amer 123 mL/min (>60); Estimated Creatinine Clearance 118.23 ml/min; Glucose 133 mg/dL (74-106); Potassium 3.9 mmol/L (3.5-5.1); Sodium Level 138 mmol/L (136-145)
[2023-12-06] MEDS: Acetaminophen 500 MG Tablet 1000 MG PO (13:48)
--- NOTE | 2023-12-06 13:49 | RAD_ITS ---
STUDY: X-RAY CHEST REASON FOR EXAM: Male, 23 years old. Fever TECHNIQUE: Single AP portable view of the chest. COMPARISON: None. FINDINGS: The lungs are clear and expanded. There is no demonstrated pleural abnormality. Normal size heart. Normal mediastinum and varun. Normal visualized pulmonary arteries. Normal visualized aortic arch and descending thoracic aorta. Normal visualized thoracic spine. Normal visualized ribs, clavicles, and shoulders. There is no demonstrated abnormality of the visualized soft tissue structures of the upper abdomen. RAD/Chest 1 View (Portable) IMPRESSION: Normal x-ray examination of the chest. Electronically Signed: Houston Larios MD at 14:05 EST ,
[2023-12-06] MEDS: morphine 8 MG/ML Syringe 6 MG IV (14:03)
[2023-12-06 15:00] VITALS: TEMP 37.4
[2023-12-06 15:50] VITALS: BP 102/76; PULSE 91; RESP 14; TEMP 37.6; O2SAT 98
== END 2023-12-06 15:51 | disposition home or self-care (01) ==
PROVIDERS: Physician Assistant; Emergency Provider Emergency Medicine; Visit Provider Emergency Medicine
DX: T80.69XA Other serum reaction due to other serum, initial encounter (principal); D69.3 Immune thrombocytopenic purpura; X58.XXXA Exposure to other specified factors, initial encounter; B34.9 Viral infection, unspecified
CPT/HCPCS: 71045; 80048; 85025; 87631; 87651; 96374; 96375; 96376; 99283; A4216; J2405

== ENCOUNTER 2023-12-28 09:10 | Emergency (ER) | payer SELFPAY ==
[2023-12-28 09:11] VITALS: BP 146/79; PULSE 93; RESP 14; TEMP 37.2; O2SAT 100; BMI 24.3
--- NOTE | 2023-12-28 09:19 | EDS_ITS ---
HPI History of Present Illness Chief Complaint: Headache Informant: patient Onset/Context/Timing Onset: Today Context: Sudden Timing: Continuous Quality -Headache: Positive for Throbbing Location: Generalized Worsened by: Movement Relieved by: Remaining still Associated Symptoms/Injury Associated Symptoms: Positive for Fever, Nausea, Vomiting and Sore Throat; Negative for Sinus Pressure, Numbness, Tingling, Preceding Aura, Visual Changes, Blurred Vision, Photophobia or Visual Loss Injury - [place]: Negative for Direct Trauma, Fall or Assault Narrative Narrative: Patient presents with a headache that began today. Patient states it woke him up out of his sleep this morning. Patient states it has been constant. Patient describes it as throbbing. Patient states it is diffuse across his entire head. Patient states it radiates into his neck. Patient states it is worse with any movement. Patient states it is better with remaining still. Patient states he has a history of ITP and had IVIG yesterday. Patient states he had chemotherapy last week. Patient admits to some subjective fevers. Patient denies any visual changes or scotoma. Patient admits to some nausea and vomiting. [facility] Medical History (Updated 12/28/23 @ 11:[address] Jasper Payan DO) Cannabis use disorder Ecchymoses, spontaneous Hypofibrinogenemia Idiopathic thrombocytopenic purpura (ITP) Severe thrombocytopenia Home Medications oxycodone-acetaminophen 5 mg-325 mg tablet (Percocet) 1 tab PO Q8H PRN pain 3 days #10 tabs 12/06/23 [Rx Last Taken Unknown] Allergy/AdvReac Type Severity Reaction Status Date / Time No Known Allergies Allergy Verified 12/28/23 09:11 Family History Mother No problems noted. Father No problems noted. Brother Leukemia in remission Surgical History No history of previous surgery Surgical History no surgical history no surgical history Social History household members: none Smoking Status: Never smoker alcohol intake: never substance use type: marijuana ROS ROS ED Constitutional Constitutional ED: Reports fever(s) and subjective; Denies chills Eyes Eyes: Denies blurry vision or change in vision ENT ENT ED: Reports sore throat; Denies rhinorrhea Cardiovascular Cardiovascular: Denies chest pain or palpitations Respiratory/Chest Respiratory/Chest: Denies cough or dyspnea Gastrointestinal Gastrointestinal: Reports nausea and vomiting Genitourinary Genitourinary ED: Denies dysuria or hematuria Musculoskeletal Musculoskeletal: Reports neck pain; Denies back pain Integumentary Denies abscess or rash Neurologic Neurologic: Reports headache(s); Denies weakness Allergic/Immunologic Allergic/Immunologic ED: Denies mouth swelling or urticaria EXAM Physical Exam Const Vital Signs: 12/28/23 09:11 Temperature 98.9 F Temperature Source Temporal Pulse Rate 93 Respiratory Rate 14 Blood Pressure 146/79 H Blood Pressure Mean 101 Pulse Ox 100 Oxygen Delivery Method Room Air Positive well nourished and well developed General Appearance ED: well developed and NAD HEENT Reports moist mucous membranes atraumatic Neck supple, no meningeal signs and no JVD Resp normal respiratory effort and clear to auscultation bilaterally Cardio regular rate and regular rhythm GI non-tender and non-distended Palpation: soft; Negative for hepatomegaly or splenomegaly Extremity normal to inspection and full ROM Neuro oriented x3, CN's II-XII intact bilaterally and no sensory deficits noted Jessica Coma Scale: document GCS findings Spontaneous Obeys Commands Oriented 15 Sensorium / Orientation: awake and alert Speech: speech normal Psych mental status grossly normal MDM MDM MDM Narrative Medical decision making narrative: Differential diagnosis includes intracranial bleeding, migraine headache, and infection. CBC will be obtained to assess for leukocytosis, anemia, and thrombocytopenia. Basic metabolic profile will be obtained to assess for electrolyte abnormality and renal function. CT scan of the brain will be obtained to assess for intracranial bleeding. COVID-19, influenza, and RSV PCR will be obtained to assess for viral infection. Lab Data Attestation: I reviewed the patient's lab results. Lab results narrative: CBC was reviewed and was within normal limits. Platelets were normal at 196. Basic metabolic profile was reviewed and was within normal limits. COVID-19 PCR was reviewed and was negative. Influenza PCR was reviewed and was negative for influenza A and influenza B. RSV PCR was reviewed and was negative. Labs: Laboratory Results - last 24 hr 12/28/23 09:30 WBC 8.3 RBC 5.04 Hgb 15.4 Hct 44.5 MCV 88.3 MCH 30.6 MCHC 34.6 RDW Std Deviation 39.1 RDW Coeff of Nba 12.2 Plt Count 196 MPV 10.4 Immature Gran % (Auto) 0.400 Neut % (Auto) 73.9 H Lymph % (Auto) 19.8 [place] % (Auto) 5.4 Eos % (Auto) 0.1 Baso % (Auto) 0.4 Absolute Neuts (auto) 6.2 Absolute Lymphs (auto) 1.65 Nucleated RBC % 0 Sodium 136 Potassium 3.5 Chloride 104 Carbon Dioxide 27.0 Anion Gap 5 BUN 12 Creatinine 1.01 Estim Creat Clear Calc 114.72 Est GFR (MDRD) Af Amer 118 Est GFR (MDRD) Non-Af 97 BUN/Creatinine Ratio 11.9 Glucose 111 H Calcium 9.0 Radiography Diagnostic Testing: Clinical Impression(s) from Imaging Studies Brain CT 12/28/23 09:30 IMPRESSION: No acute intracranial abnormality. Electronically Signed: Royal Wells MD at 10:36 EDT , CT scan of the brain was obtained. There is no acute intracranial abnormality. This was interpreted by the radiologist and was also independently reviewed by myself. Treatment and Re-Evaluation Narrative: Patient was given IV fluids, Reglan, and Benadryl. Patient was feeling better on reevaluation. Patient states his headache was improving. Discharge Plan Triage Chief Complaint: Headache ED Provider: Jasper Payan Dx/Rx/DC Orders Clinical Impression: History of idiopathic thrombocytopenic purpura, Headache Instructions: ED Headache Unspecified Prescriptions: No Action oxycodone-acetaminophen [Percocet] 5-325 mg tablet 1 tab PO Q8H PRN (Reason: pain) 3 Days Qty: 10 0RF Primary Care Provider: Care Physician,No Primary Referrals: Yvette Means MD [Med Staff - Grid Maker] - 5-7 Days Care Physician,No Primary [Primary Care Provider] - Disposition Disposition: Home, Self Care
--- NOTE | 2023-12-28 09:30 | CT_ITS ---
EXAM: CT HEAD WITHOUT INTRAVENOUS CONTRAST CLINICAL INDICATION: Pain TECHNIQUE: Multiple axial images were obtained of the head without intravenous contrast. This CT exam was performed using one or more of the following dose reduction techniques: automated exposure control, adjustment of the mA and/or kV according to patient size, and/or use of iterative reconstruction technique. COMPARISON: CT Head dated 06/01/2013 FINDINGS: BRAIN AND EXTRA-AXIAL SPACES: Normal. Normal brain attenuation. No intra- or extra-axial hemorrhage. No acute infarct. No intracranial mass or mass effect. There is preservation of the perez/white matter interface. Posterior fossa structures are unremarkable. Ventricles are appropriate for age. No hydrocephalus. Basal cisterns are patent. BONES/JOINTS: Normal calvarium. SINUSES: Mucus retention cysts noted within both maxillary sinuses. MASTOID AIR CELLS: Normal. Clear. CT/Brain/Head without Contrast IMPRESSION: No acute intracranial abnormality. Electronically Signed: Royal Wells MD at 10:36 EDT ,
[2023-12-28 09:43] LABS: Absolute Lymphocyte Count 1.65 X10^3/uL (0.83-4.51); Absolute Neutrophil Count 6.2 X10^3/uL (2.0-7.7); Basophil# 0.03 X10^3/uL; Basophil% 0.4 % (0-1); Eosinophil# 0.01 X10^3/uL; Eosinophils% 0.1 % (0-5); Hematocrit 44.5 % (40-54); Hemoglobin 15.4 g/dL (13.0-16.5); Lymphocyte # 1.65 X10^3/ul (0.83-4.51); Lymphocyte % 19.8 % (19-41); Mean Corp Hgb Conc 34.6 g/dL (32-36); Mean Corpuscular Hgb 30.6 pg (27.0-32.0); Mean Corpuscular Volume 88.3 fL (80-94); Mean Platelet Vol. 10.4 fl (6.2-12.0); Monocyte# 0.45 X10^3/uL; Monocyte% 5.4 % (0-10); NRBC Flagged by Analyzer 0 % (0-5); Neutrophil # 6.17 X10^3/uL (2.7-7.7); Neutrophil % 73.9 % (47-70); Platelet Count 196 K/mm3 (150-450); RBC Distribution Width CV 12.2 % (11.6-14.6); RBC Distribution Width SD 39.1 fl (35.1-43.9); Red Blood Count 5.04 M/mm3 (4.6-6.2); White Blood Count 8.3 K/mm3 (4.4-11.0)
[2023-12-28] MEDS: DiphenhydrAMINE 50 MG/ML Syringe 25 MG IV (09:43)
[2023-12-28] MEDS: 0.9% Normal Saline (1000mL) 1,000 ML 999 ML IV (09:43)
[2023-12-28] MEDS: Metoclopramide 10 MG/2 ML Vial IV (09:43)
[2023-12-28 09:56] LABS: Anion Gap 5 (5-15); BUN 12 mg/dL (7-18); BUN/Creat Ratio 11.9 RATIO (10-20); Chloride 104 mmol/L (98-107); Creatinine, Serum 1.01 mg/dL (0.70-1.30); EST Glomerular Filtration Rate 97 mL/min (>60); Est Glom Filt Rate - Afr Amer 118 mL/min (>60); Estimated Creatinine Clearance 114.72 ml/min; Glucose 111 mg/dL (74-106); Potassium 3.5 mmol/L (3.5-5.1); Sodium Level 136 mmol/L (136-145)
[2023-12-28 11:10] VITALS: BP 126/72; PULSE 64; RESP 16; O2SAT 98
[2023-12-28 11:26] VITALS: BP 124/61; PULSE 71; RESP 16; TEMP 36.4; O2SAT 99
== END 2023-12-28 11:26 | disposition home or self-care (01) ==
PROVIDERS: Emergency Provider Emergency Medicine; Visit Provider Emergency Medicine
DX: R51.9 Headache, unspecified (principal); F12.90 Cannabis use, unspecified, uncomplicated
CPT/HCPCS: 70450; 80048; 85025; 87631; 96361; 96374; 96375; 99283; J7030; A4216

== ENCOUNTER 2024-07-01 10:30 | Inpatient (IN) | payer MEDICAID, SELFPAY ==
[2024-07-01 10:30] VITALS: BP 114/80; PULSE 83; RESP 18; TEMP 37.2; O2SAT 97; BMI 24.4
--- NOTE | 2024-07-01 10:50 | EX.ED.SAOD ---
HPI History of Present Illness Chief Complaint: Substance Abuse Detail of Chief Complaint: Fentanyl addiction and dependency Informant: patient Onset/Context/Timing Onset: Days and Weeks Context: Sudden Onset Timing: Intermittent Quality: Diarrhea, shakes when he does not use Location: Generalized Current Severity: Mild Maximum Severity: Severe Worsened by: Abstinence Relieved by: Using Associated Symptoms Associated Symptoms: Positive for vomiting*, diarrhea* and tremor; Negative for fever*, rash*, seizure, palpatations, change in mental status, trauma, sex for drugs*, suicidal ideation or homicidal ideation Narrative Narrative: Patient is a 24-year-old male. He was prescribed Percocet when he was diagnosed with ITP. This was for pain management. This was over a year ago. He has been snorting fentanyl 0.5 to 1 g a day for the past 2 months. He has not used in 12 hours. He does complain of tremors. He denies palpitations. He does report diarrhea. He denies IV drug use. He denies tobacco use. He denies alcohol use he denies any other drug use. Prior similar symptoms: Yes Recent Illness/Hospitalization: No PFSH PFSH Medical History Idiopathic thrombocytopenic purpura (ITP) Hypofibrinogenemia Cannabis use disorder Ecchymoses, spontaneous Severe thrombocytopenia Home Medications ?Medication ?Instructions ?Recorded ?Last Taken ?Type oxycodone-acetaminophen 5 mg-325 1 tab PO Q8H PRN pain 3 days #10 12/06/23 Unknown Rx mg tablet (Percocet) tabs Allergy/AdvReac Type Severity Reaction Status Date / Time No Known Allergies Allergy Verified 07/01/24 10:30 Family History Mother No problems noted. Father No problems noted. Brother Leukemia in remission Surgical History No history of previous surgery Social History household members: none Smoking Status: Never smoker alcohol intake: never substance use type: marijuana ROS ROS ED Constitutional Constitutional ED: Reports chills; Denies fever(s), subjective or sweats Eyes Eyes: Denies blurry vision or change in vision ENT ENT ED: Denies ear pain or rhinorrhea Cardiovascular Cardiovascular: Denies chest pain or palpitations Respiratory/Chest Respiratory/Chest: Denies cough, dyspnea or dyspnea on exertion Gastrointestinal Gastrointestinal: Reports abdominal pain, diarrhea, nausea and vomiting Genitourinary Genitourinary ED: Denies dysuria or urinary frequency Musculoskeletal Musculoskeletal: Reports other Details: Patient presently reports generalized pain. ; Denies arthralgias or myalgias Integumentary Reports rash Neurologic Neurologic: Denies headache(s) or paresthesias Psychiatric Psychiatric: Denies anxiety Hematologic/Lymphatic Hematologic/Lymphatic: Denies easy bleeding or easy bruising EXAM Physical Exam Const Vital Signs: 07/01/24 10:30 07/01/24 11:30 Temperature 98.9 F Temperature Source Oral Pulse Rate 83 58 L Respiratory Rate 18 16 Blood Pressure 114/80 113/68 Blood Pressure Mean 91 83 Pulse Ox 97 98 Oxygen Delivery Method Room Air Room Air Positive well nourished and well developed General Appearance ED: well developed, NAD and pallor HEENT Reports moist mucous membranes HEENT Narrative: Ears normal. Nares patent. Posterior pharynx normal. atraumatic; Negative for tenderness Eyes PERRL and EOMs intact bilaterally General Eye ED: Negative for pale conjunctiva or scleral icterus Neck no lymphadenopathy, supple and no JVD Lymph Lymphatic: no lymphadenopathy noted and lymphadenopathy Chest Wall inspection of chest normal and palpation of chest normal Resp normal respiratory effort and clear to auscultation bilaterally Cardio regular rate, regular rhythm, S1 normal heart sound, S2 normal heart sound and no murmurs GI soft to palpation, non-tender, non-distended and no masses Back/Spine no CVA tenderness Extremity Extremity Narrative: Piloerection. Neuro oriented x3, CN's II-XII intact bilaterally and no sensory deficits noted Neuro Narrative: Nonsustained clonus at the ankles, 3 beats. Patient's reflexes are brisk 3+ throughout and symmetric. Jessica Coma Scale: document GCS findings Spontaneous Obeys Commands Oriented 15 Sensorium / Orientation: alert Speech: speech normal Motor Exam: strength 5/5 throughout Psych mental status grossly normal and thought process normal Skin General Skin Exam: pallor; Negative for jaundice Lesions: no lesions Rashes: no rashes MDM MDM MDM Narrative Medical decision making narrative: Patient has symptoms of withdrawal. He is not tachycardic. For this reason IV was established. He received IV Ativan. Appropriate addiction medicine labs were ordered per protocol. Prior Sandra is willing to stay. Will contact hospitalist for admission. Lab Data Attestation: I reviewed the patient's lab results. Lab results narrative: Comprehensive metabolic panel is unremarkable. Talk screen was positive for opiates and cannabinoids. Labs: Laboratory Results - last 24 hr 07/01/24 07/01/24 11:01 11:14 Sodium 136 Potassium 3.8 Chloride 104 Carbon Dioxide 28.0 Anion Gap 4 L BUN 10 Creatinine 0.96 Estim Creat Clear Calc 119.67 Est GFR (MDRD) Af Amer 125 Est GFR (MDRD) Non-Af 103 BUN/Creatinine Ratio 10.4 Glucose 127 H Calcium 9.3 Total Bilirubin 0.60 AST 11 L ALT 17 Alkaline Phosphatase 49 Total Protein 7.3 Albumin 4.0 Globulin 3.3 Albumin/Globulin Ratio 1.2 Urine Opiates Screen POSITIVE H Urine Methadone Screen NEGATIVE Ur Barbiturates Screen NEGATIVE Ur Phencyclidine Scrn NEGATIVE Ur Amphetamines Screen NEGATIVE MDMA (Ecstasy) Screen NEGATIVE U Benzodiazepines Scrn NEGATIVE Urine Cocaine Screen NEGATIVE U Cannabinoids Screen POSITIVE H Ur Drug Screen Comment Ethyl Alcohol 4.0 Discharge Plan Dx/Rx/DC Orders Clinical Impression: Fentanyl use disorder, moderate, dependence, History of ITP, Cannabis use disorder, mild, abuse Disposition Disposition: Acute Care Hospital [facility]
[2024-07-01] MEDS: LORazepam 2 MG/ML Syringe 0.5 MG IV ×2 (11:05→13:31)
[2024-07-01] MEDS: Ondansetron 4 MG/2 ML Vial IV (11:05)
[2024-07-01 11:29] LABS: ALB/GLOB Ratio 1.2 RATIO (0.9-2.4); AST(SGOT) 11 U/L (15-37); Alanine Aminotransfer ALT/SGPT 17 U/L (16-61); Alkaline Phosphatase 49 U/L (45-117); Anion Gap 4 (5-15); BUN 10 mg/dL (7-18); BUN/Creat Ratio 10.4 RATIO (10-20); Calcium,Total 9.3 mg/dL (8.5-10.1); Chloride 104 mmol/L (98-107); Creatinine, Serum 0.96 mg/dL (0.70-1.30); EST Glomerular Filtration Rate 103 mL/min (>60); Est Glom Filt Rate - Afr Amer 125 mL/min (>60); Estimated Creatinine Clearance 119.67 ml/min; Globulin 3.3 g/dL (2.2-4.2); Glucose 127 mg/dL (74-106); Potassium 3.8 mmol/L (3.5-5.1); Protein, Total 7.3 g/dL (6.4-8.2); Sodium Level 136 mmol/L (136-145)
[2024-07-01 11:30] VITALS: BP 113/68; PULSE 58; RESP 16; O2SAT 98
[2024-07-01 11:35] LABS: Amphetamine Urine VISTA NEGATIVE (<1000 ng/mL); Barbiturate Urine VISTA NEGATIVE (< 200 ng/mL); Benzodiazepine Urine VISTA NEGATIVE (< 200 ng/mL); Cocaine Urine VISTA NEGATIVE (< 300 ng/mL); Ecstacy Urine VISTA NEGATIVE (< 500 ng/mL); Methadone Urine VISTA NEGATIVE (< 300 ng/mL); PCP Urine VISTA NEGATIVE (< 25 ng/mL); THC Urine VISTA POSITIVE (< 50 ng/mL); Vista UDS pH Range 7
[2024-07-01 12:00] VITALS: BP 107/69; PULSE 60; RESP 18; O2SAT 97
--- NOTE | 2024-07-01 12:19 | PCM.HP.STD ---
HPI - General General Date of Admission: 07/01/24 Date of Service: 07/01/24 Chief Complaint: Opiate withdrawal HPI Narrative IBIS BUITRAGO, is a 24 M who presented to [facility] ED on 07/01/2024 requesting opiate detoxification. Saw patient at bedside in the ED, mother present. Patient was mildly fatigued appearing and laying in bed but otherwise did not appear to be in acute distress. He did have mild anxiety noted. Patient was prescribed Percocet a little over a year ago for pain management back when he was diagnosed with ITP. Once that ran out he began sorting fentanyl. Has been snorting 0.5 to 1 g of fentanyl daily for the past 2 months. Last fentanyl use was 12 hours prior to this admission. Patient reported some tremors, generalized restlessness and diarrhea in the ED. Denied any other withdrawal symptoms. He does report smoking marijuana occasionally. He otherwise denied alcohol use, tobacco use or any other drug use. Denied any IV drug use. Was given doses of Ativan and Zofran prior to my encounter with him and he noted that his symptoms were moderately improved with this. Has never gone through opiate detoxification before. Will admit for further management. [facility] Medical History (Updated 07/01/24 @ 15:[address] Suresh Oneill, DO) Substance abuse Anxiety Non-smoker Idiopathic thrombocytopenic purpura (ITP) Hypofibrinogenemia Cannabis use disorder Ecchymoses, spontaneous Severe thrombocytopenia Home Medications ?Medication ?Instructions ?Recorded ?Last Taken ?Type prednisone 5 mg tablet 5 mg PO DAILY itp 07/01/24 Unknown History Allergy/AdvReac Type Severity Reaction Status Date / Time No Known Allergies Allergy Verified 07/01/24 10:30 Family History Mother No problems noted. Father No problems noted. Brother Leukemia in remission Surgical History No history of previous surgery Social History household members: none Smoking Status: Never smoker alcohol intake: never substance use type: marijuana ROS Constitutional Constitutional: Denies chills, fatigue, fever(s) or weakness Eyes Eyes: Denies change in vision Cardiovascular Cardiovascular: Denies chest pain Respiratory/Chest Respiratory/Chest: Denies shortness of breath at rest Gastrointestinal Gastrointestinal: Reports diarrhea and nausea; Denies abdominal pain, constipation or vomiting Genitourinary Genitourinary: Denies dysuria Musculoskeletal Musculoskeletal: Reports myalgias; Denies arthralgias Neurologic Neurologic: Denies dizziness, focal weakness or headache(s) Vital Signs Vital Signs Vital Signs: 07/01/24 10:30 07/01/24 11:30 07/01/24 12:00 Temperature 98.9 F Temperature Source Oral Pulse Rate 83 58 L 60 Respiratory Rate 18 16 18 Blood Pressure 114/80 113/68 107/69 Blood Pressure Mean 91 83 81 Pulse Ox 97 98 97 Oxygen Delivery Method Room Air Room Air Room Air Weight Weight: 75.024 kg Body Mass Index (BMI) 24.4 Physical Exam Const alert, oriented x3, no apparent distress and average body habitus Constitutional Narrative: Young male, mildly fatigued appearing and mildly anxious appearing but otherwise laying comfortably in bed, in no acute distress. General Appearance: cooperative and comfortable HEENT normocephalic, head/scalp atraumatic, hearing grossly normal bilaterally, nasal mucous membranes and turbinates normal and moist oral mucous membranes Eyes PERRL, EOMs intact bilaterally and conjunctivae normal Neck full ROM Chest inspection of chest normal Resp normal respiratory effort, normal air movement, no use of accessory muscles and clear to auscultation bilaterally Cardio regular rate, regular rhythm, no murmurs and peripheral pulses 2+ throughout GI normal to inspection, nondistended, normoactive bowel sounds, soft to palpation, non-tender and non-distended Back/Spine normal ROM Extremity normal to inspection, full ROM and no pedal edema Skin no rashes or lesions noted Neuro moves all extremities and no focal motor deficits Speech: speech normal Psych mental status grossly normal Mood & Affect: anxious Results Lab / Micro Data 07/01/24 11:01 07/01/24 11:01 Labs: Laboratory Results - last 24 hr 07/01/24 11:01: Sodium 136, Potassium 3.8, Chloride 104, Carbon Dioxide 28.0, Anion Gap 4 L, BUN 10, Creatinine 0.96, Estim Creat Clear Calc 119.67, Est GFR (MDRD) Af Amer 125, Est GFR (MDRD) Non-Af 103, BUN/Creatinine Ratio 10.4, Glucose 127 H, Calcium 9.3, Total Bilirubin 0.60, AST 11 L, ALT 17, Alkaline Phosphatase 49, Total Protein 7.3, Albumin 4.0, Globulin 3.3, Albumin/Globulin Ratio 1.2, Ethyl Alcohol 4.0 07/01/24 11:14: Urine Opiates Screen POSITIVE H, Urine Methadone Screen NEGATIVE, Ur Barbiturates Screen NEGATIVE, Ur Phencyclidine Scrn NEGATIVE, Ur Amphetamines Screen NEGATIVE, MDMA (Ecstasy) Screen NEGATIVE, U Benzodiazepines Scrn NEGATIVE, Urine Cocaine Screen NEGATIVE, U Cannabinoids Screen POSITIVE H, Ur Drug Screen Comment Assessment & Plan Assessment/Plan (1) Opiate abuse, continuous: (2) Desire for detoxification: PLAN: Plan Patient is a 24-year-old male who presented to [facility] ED on 07/01/2024 for opiate detoxification. 1. Opiate abuse with desire for detoxification ? Admit under inpatient status to [facility]. Case management and addiction medicine consulted. Will treat with Subutex taper and other as needed medications per opiate withdrawal order set. 2. Cannabis use ? Encouraged cessation on discharge. 3. History of ITP and hypofibrogenemia ? Follows with Dr. Elam, last office visit 04/09/24. Hospitalized at [facility] in 05/2024 after 1-month history of extensive bruising and fatigue, found to have low platelet count around 25K. Platelet count responded well to pulsed dose dexamethasone while inpatient. Bone marrow then with no evidence of leukemia. Was able to be discharged home after 3-day hospitalization. Had slow ITP response noted on higher dose prednisone after hospitalization but then had prescriptions to [facility]. Was then treated with Rituxan with good response. Plan as of 04/09 was more prednisone 10 mg x 1 month then 5 mg x 1 month then off; has completed this course of prednisone. Planning to start Promacta in outpatient setting soon. Platelet count 165 on this admission. No inpatient needs, continue outpatient follow-up. DVT prophylaxis: Low risk, ambulate CODE STATUS: Full code, verified Expected disposition: Home, 2 to 3 days Total clinical time spent by myself addressing the patient's medical issues, reviewing all the data, and collaborating with patient's care team: 55 minutes. Charges/Coding Visit Charges Inpatient E&M: 80392 Init Hosp L2
[2024-07-01 12:56] LABS: Absolute Lymphocyte Count 1.16 X10^3/uL (0.83-4.51); Absolute Neutrophil Count 7.2 X10^3/uL (2.0-7.7); Basophil# 0.02 X10^3/uL; Basophil% 0.2 % (0-1); Eosinophil# 0.03 X10^3/uL; Eosinophils% 0.3 % (0-5); Hemoglobin 14.5 g/dL (13.0-16.5); Lymphocyte # 1.16 X10^3/ul (0.83-4.51); Mean Corp Hgb Conc 33.7 g/dL (32-36); Mean Corpuscular Hgb 29.9 pg (27.0-32.0); Mean Corpuscular Volume 88.7 fL (80-94); Mean Platelet Vol. 11.1 fl (6.2-12.0); Monocyte# 0.49 X10^3/uL; Monocyte% 5.5 % (0-10); NRBC Flagged by Analyzer 0 % (0-5); Neutrophil # 7.21 X10^3/uL (2.7-7.7); Neutrophil % 80.6 % (47-70); Platelet Count 165 K/mm3 (150-450); RBC Distribution Width CV 11.1 % (11.6-14.6); RBC Distribution Width SD 35.9 fl (35.1-43.9); Red Blood Count 4.85 M/mm3 (4.6-6.2)
--- NOTE | 2024-07-01 12:59 | NURSING ---
MED SURG [facility] OPIATE DETOX
[2024-07-01 13:00] VITALS: BP 118/68; PULSE 71; RESP 16; O2SAT 99
[2024-07-01 13:42] VITALS: BP 120/73; PULSE 68; RESP 16; TEMP 36.1; O2SAT 99
[2024-07-01 13:53] VITALS: BMI 24.4
[2024-07-01] MEDS: cloNIDine HCl 0.1 MG Tablet PO (15:14)
[2024-07-01] MEDS: hydrOXYzine PAM 25 MG Capsule 50 MG PO (15:14)
[2024-07-01 19:45] VITALS: BP 132/83; PULSE 77; RESP 18; TEMP 36.1; O2SAT 100
[2024-07-01] MEDS: 0.9% Saline Lock 10 ML Syringe IV (19:48)
[2024-07-01] MEDS: Buprenorphine HCl 2 MG TAB.SUBL SL (19:48)
[2024-07-01] MEDS: Dicyclomine 10 MG Capsule 20 MG PO (19:54)
[2024-07-01] MEDS: Gabapentin 300 MG Capsule PO (19:54)
[2024-07-02] VITALS (7 sets, daily range): BP systolic 98–119; BP diastolic 57–73; PULSE 81–103; RESP 14–16; TEMP 36.1–36.8; O2SAT 97–100
[2024-07-02] MEDS: cloNIDine HCl 0.1 MG Tablet PO (00:13)
[2024-07-02] MEDS: traZODone 100 MG Tablet PO (00:14)
[2024-07-02] MEDS: hydrOXYzine PAM 25 MG Capsule 50 MG PO ×3 (00:14→19:55)
[2024-07-02] MEDS: Buprenorphine HCl 2 MG TAB.SUBL SL ×3 (03:36→19:55)
[2024-07-02] MEDS: Methocarbamol 750 MG Tablet PO ×2 (09:04→15:52)
[2024-07-02] MEDS: Acetaminophen 325 MG Tablet 650 MG PO ×2 (09:04→15:52)
--- NOTE | 2024-07-02 11:16 | CASEMGMT ---
Patient is self pay. SW met with patient. Introduced self and role at [facility]. Patient was sleeping, but he did wake up when SW said his name. SW let patient know SW is leaving him some resources. Patient confirmed Delia from [employer] stopped in to talk with him today and helped him apply for Medicaid. Darlene Scott [employer]
--- NOTE | 2024-07-02 12:47 | PN.HOSP_ITS ---
Reason for Visit Reason for Visit: Diagnoses Opioid abuse, uncomplicated (07/01/24) Subjective Subjective Saw patient at bedside this morning. Patient appeared similar this morning to yesterday. Stated he was having some withdrawal symptoms but they were improved from yesterday. Noted that he does not want to be on Suboxone going home and instead would prefer Vivitrol injections or similar treatment like this going forward. No other new concerns today. Objective Data Objective Data Vital Signs: Vital Signs Temp Pulse Resp BP Pulse Ox O2 Del Method 98.2 F 103 H 16 106/57 L 98 Room Air 07/02/24 08:06 07/02/24 08:06 07/02/24 08:06 07/02/24 08:06 07/02/24 08:06 07/02/24 08:06 Oxygen Delivery Method Room Air Weight: 75 kg Body Mass Index (BMI) 24.4 Lab / Micro Data 07/01/24 11:01 07/01/24 11:01 Labs: Laboratory Results - last 24 hr 07/01/24 11:01: WBC 9.0, RBC 4.85, Hgb 14.5, Hct 43.0, MCV 88.7, MCH 29.9, MCHC 33.7, RDW Std Deviation 35.9, RDW Coeff of Nba 11.1 L, Plt Count 165, MPV 11.1, Immature Gran % (Auto) 0.400, Neut % (Auto) 80.6 H, Lymph % (Auto) 13.0 L, [place] % (Auto) 5.5, Eos % (Auto) 0.3, Baso % (Auto) 0.2, Absolute Neuts (auto) 7.2, Absolute Lymphs (auto) 1.16, Nucleated RBC % 0 Physical Exam Const alert, oriented x3, no apparent distress and average body habitus Constitutional Narrative: Young male, mildly fatigued appearing but otherwise laying comfortably in bed, in no acute distress. Stable. General Appearance: cooperative and comfortable HEENT normocephalic, head/scalp atraumatic, hearing grossly normal bilaterally, nasal mucous membranes and turbinates normal and moist oral mucous membranes Eyes PERRL, EOMs intact bilaterally and conjunctivae normal Neck full ROM Chest inspection of chest normal Resp normal respiratory effort, normal air movement, no use of accessory muscles and clear to auscultation bilaterally Cardio regular rate, regular rhythm, no murmurs and peripheral pulses 2+ throughout GI normal to inspection, nondistended, normoactive bowel sounds, soft to palpation, non-tender and non-distended Back/Spine normal ROM Extremity normal to inspection, full ROM and no pedal edema Skin no rashes or lesions noted Neuro moves all extremities and no focal motor deficits Speech: speech normal Psych mental status grossly normal Assessment & Plan Assessment/Plan (1) Opiate abuse, continuous: (2) Desire for detoxification: PLAN: Plan Patient is a 24-year-old male who presented to [facility] ED on 07/01/2024 for opiate detoxification. 1. Opiate abuse with desire for detoxification ? Case management and addiction medicine following. Treating with Subutex taper and other as needed medications per opiate withdrawal order set. Patient reports fairly good control of withdrawal symptoms. Planning for outpatient treatment with consideration of Vivitrol injections after discharge. 2. Cannabis use ? Encouraged cessation on discharge. 3. History of ITP and hypofibrogenemia ? Follows with Dr. Elam, last office visit 04/09/24. Hospitalized at [facility] in 05/2024 after 1-month history of extensive bruising and fatigue, found to have low platelet count around 25K. Platelet count responded well to pulsed dose dexamethasone while inpatient. Bone marrow then with no evidence of leukemia. Was able to be discharged home after 3-day hospitalization. Had slow ITP response noted on higher dose prednisone after hospitalization but then had prescriptions to [facility]. Was then treated with Rituxan with good response. Plan as of 04/09 was more prednisone 10 mg x 1 month then 5 mg x 1 month then off; has completed this course of prednisone. Planning to start Promacta in outpatient setting soon. Platelet count 165 on this admission. No inpatient needs, continue outpatient follow-up. DVT prophylaxis: Low risk, ambulate CODE STATUS: Full code, verified Expected disposition: Home, 1 to 2 days Total clinical time spent by myself addressing the patient's medical issues, reviewing all the data, and collaborating with patient's care team: 25 minutes. Charges/Coding Visit Charges Inpatient E&M: [address] [facility] Hosp L1
[2024-07-03 03:00] VITALS: BP 107/69; PULSE 65; RESP 16; TEMP 36.6; O2SAT 100
[2024-07-03] MEDS: Buprenorphine HCl 2 MG TAB.SUBL SL ×2 (03:07→10:16)
[2024-07-03] MEDS: Gabapentin 300 MG Capsule PO (03:10)
[2024-07-03 07:47] VITALS: O2SAT 96
[2024-07-03 09:00] VITALS: BP 129/74; PULSE 101; RESP 12; TEMP 36.6; O2SAT 100
[2024-07-03] MEDS: Methocarbamol 750 MG Tablet PO (10:16)
[2024-07-03] MEDS: hydrOXYzine PAM 25 MG Capsule 50 MG PO (10:16)
[2024-07-03] MEDS: Acetaminophen 325 MG Tablet 650 MG PO (10:16)
--- NOTE | 2024-07-03 11:54 | PCM.DC ---
Discharge Instructions Diet Discharge Diet: No restrictions Activity Discharge Activity: No Restrictions Follow Up Care Test Results: Test results from this visit will be discussed in further detail at your follow-up appointment, if applicable. Discharge Plan Admission Admit Date/Time: 07/01/24 12:20 Primary Reason for Your Visit: Opiate withdrawal Attending Provider: Suresh Oneill Primary Care Provider: Care Physician,No Primary Instructions Additional Instructions / Restrictions: Please follow-up at either [facility] or [facility] this coming week to discuss when you can start receiving Vivitrol injections to help with cravings for opiates. Discharge Orders/Prescriptions Prescriptions: Discontinued prednisone 5 mg tablet 5 mg PO DAILY Referrals / Follow Up: Care Physician,No Primary [Primary Care Provider] - Disposition Disposition (needs filled in before D/C Order can be placed): Home, Self Care
--- NOTE | 2024-07-03 11:56 | PCM.DC.SUM ---
Providers Date of Admission: 07/01/24 Date of Discharge: 07/03/24 Primary Care Physician: No Primary Care Phys Reason For Visit: OPIATE DETOX Diagnosis Discharge Diagnosis (1) Opiate abuse, continuous: Status: Acute Code(s): F11.10 - Opioid abuse, uncomplicated (2) Desire for detoxification: Status: Acute Hospital Course Operations None Procedures None Summary of Care Provided Minutes Spent on Discharge: 25 Hospital Course: Patient is a 24-year-old male who presented to [facility] ED on 07/01/2024 for opiate detoxification. Hospital course as noted below. Patient discharged home in stable condition on 07/03. 1. Opiate abuse with desire for detoxification ? Case management and addiction medicine followed. Treated with Subutex taper and other as needed medications per opiate withdrawal order set with good symptom control. Plan is for outpatient treatment at either or on discharge with consideration of Vivitrol injections going forward. 2. Cannabis use ? Encouraged cessation on discharge. 3. History of ITP and hypofibrogenemia ? Follows with Dr. Elam, last office visit 04/09/24. Hospitalized at [facility] in 05/2024 after 1-month history of extensive bruising and fatigue, found to have low platelet count around 25K. Platelet count responded well to pulsed dose dexamethasone while inpatient. Bone marrow then with no evidence of leukemia. Was able to be discharged home after 3-day hospitalization. Had slow ITP response noted on higher dose prednisone after hospitalization but then had prescriptions to [facility]. Was then treated with Rituxan with good response. Plan as of 04/09 was more prednisone 10 mg x 1 month then 5 mg x 1 month then off; has completed this course of prednisone. Planning to start Promacta in outpatient setting soon. Platelet count 165 on this admission. No inpatient needs, continue outpatient follow-up. Total clinical time spent by myself addressing the patient's medical issues, reviewing all the data, and collaborating with patient's care team: 25 minutes. Physical Exam Const alert, oriented x3, no apparent distress and average body habitus Constitutional Narrative: Young male, energy improved from admission, laying comfortably in bed, in no acute distress. Stable. General Appearance: cooperative and comfortable HEENT normocephalic, head/scalp atraumatic, hearing grossly normal bilaterally, nasal mucous membranes and turbinates normal and moist oral mucous membranes Eyes PERRL, EOMs intact bilaterally and conjunctivae normal Neck full ROM Chest inspection of chest normal Resp normal respiratory effort, normal air movement, no use of accessory muscles and clear to auscultation bilaterally Cardio regular rate, regular rhythm, no murmurs and peripheral pulses 2+ throughout GI normal to inspection, nondistended, normoactive bowel sounds, soft to palpation, non-tender and non-distended Back/Spine normal ROM Extremity normal to inspection, full ROM and no pedal edema Skin no rashes or lesions noted Neuro moves all extremities and no focal motor deficits Speech: speech normal Psych mental status grossly normal Weight / BMI Weight Weight: 75 kg Body Mass Index (BMI) 24.4 ABG / Lab / Microbiology Data 07/01/24 11:01 07/01/24 11:01 D/C Instructions Discharge Diet: No restrictions Meaningful Use Info Meaningful Use Meaningful Use Diagnoses (Choose all that apply): None applicable Ischemic Stroke Statin Dosing Therapy Reference: STATIN DOSE THERAPY REFERENCE: * Patients > 75 years receive moderate or high dose statin therapy. * Patients 75 years or YOUNGER should receive HIGH intensity statin dose unless contraindicated. You will be required to document reason for non-treatment if statin daily dose does not meet guidelines. HIGH DOSE STATIN THERAPY DAILY Atorvastatin > than or = to 40 mg Rosuvastatin > than or = to 20 mg Amlodipine + Atorvastatin > than or = to 2.5/40 mg Ezetimibe + Simvastatin 10/80 mg Simvastatin 80mg Discharge Plan Admission Admit Date/Time: 07/01/24 12:20 Primary Reason for Your Visit: Opiate withdrawal Attending Provider: Suresh Oneill Primary Care Provider: Care Physician,No Primary Instructions Additional Instructions / Restrictions: Please follow-up at either [facility] or [facility] this coming week to discuss when you can start receiving Vivitrol injections to help with cravings for opiates. Discharge Orders/Prescriptions Prescriptions: Discontinued prednisone 5 mg tablet 5 mg PO DAILY Referrals / Follow Up: Care Physician,No Primary [Primary Care Provider] - Disposition Disposition (needs filled in before D/C Order can be placed): Home, Self Care Charges/Coding Visit Charges Inpatient E&M: [id number] Disch Hosp
[2024-07-03 13:53] VITALS: BP 115/83; PULSE 95; RESP 16; TEMP 36.6; O2SAT 100
== END 2024-07-03 14:17 | disposition home or self-care (01) | DRG 773 ==
LOC: ED 11:20 → PCU 12:46
PROVIDERS: Admitting Provider Hospitalist; Emergency Provider Emergency Medicine; Visit Provider Hospitalist
DX: F11.10 Opioid abuse, uncomplicated (principal); F12.90 Cannabis use, unspecified, uncomplicated
CPT/HCPCS: 80053; 80307; 82077; 85025; 99284; A4216; J2405

== ENCOUNTER 2025-10-10 08:46 | Emergency (ER) | payer MEDICAID, SELFPAY ==
[2025-10-10] VITALS (14 sets, daily range): BP systolic 94–151; BP diastolic 48–121; PULSE 65–98; RESP 11–28; TEMP 36.6–37.2; O2SAT 99–100; BMI 26.9
--- NOTE | 2025-10-10 08:55 | EKG12_ITS ---
Test Reason : Blood Pressure : */* mmHG Vent. Rate : 80 BPM Atrial Rate : 80 BPM P-R Int : 156 ms QRS Dur : 90 ms QT Int : 394 ms P-R-T Axes : 5 76 33 degrees QTcB Int : 454 ms Normal sinus rhythm with sinus arrhythmia Early repolarization Normal ECG Confirmed by Jayro Kebede ([id number]), technical editor CALI SANDERS ([id number]) on 10/12/2025 10:03:52 AM Referred By: Confirmed By: Jayro Kebede
--- NOTE | 2025-10-10 08:58 | EX.ED.DYSGE1 ---
HPI History of Present Illness Chief Complaint: Overdose Informant: parent (Father) Narrative Narrative: 25-year-old male was brought to the emergency department by his father. Dad states that for the past 8 months his son's been abusing fentanyl. He had a reported overdose a week ago while in the [place] area. Dad states he took 3 rounds of Narcan to get him out of it. He states that they have him scheduled to go to a rehab facility on Saturday. States that he has been staying with them to keep him from using/overdosing. Dad states that when they woke up this morning they found him in the living room and he was incoherent slurring his words and appeared to very much like when he had the overdose last week. Patient states that he used fentanyl. When I tell him that his pupils are not constricted he tells me it may be the xylazine. Patient denies taking anything else. [facility] Medical History Opiate abuse, continuous Cannabis use disorder, mild, abuse Substance abuse Anxiety Non-smoker Idiopathic thrombocytopenic purpura (ITP) Hypofibrinogenemia Cannabis use disorder Ecchymoses, spontaneous Severe thrombocytopenia Home Medications ?Medication ?Instructions ?Recorded ?Last Taken ?Type NK 10/10/25 Unknown History Allergy/AdvReac Type Severity Reaction Status Date / Time No Known Allergies Allergy Verified 10/10/25 08:51 Family History Mother No problems noted. Father No problems noted. Brother Leukemia in remission Surgical History No history of previous surgery Social History household members: none Smoking Status: Never smoker alcohol intake: never substance use type: marijuana ROS ROS ED Review of Systems ROS Unobtainable: due to mental status EXAM Physical Exam Const Vital Signs: 10/10/25 08:48 10/10/25 09:14 10/10/25 09:30 Temperature 97.8 F 98.4 F 98.8 F Temperature Source Temporal Oral Oral Pulse Rate 77 94 72 Respiratory Rate 16 28 H 14 Blood Pressure Blood Pressure Mean Pulse Ox 100 99 100 Oxygen Delivery Method Room Air Nasal Cannula Nasal Cannula Oxygen Flow Rate (L/min) 2 2 10/10/25 09:57 10/10/25 11:30 10/10/25 12:00 Temperature Temperature Source Pulse Rate 71 73 74 Respiratory Rate 13 13 11 L Blood Pressure 151/121 H 97/52 L 95/48 L Blood Pressure Mean 131 67 63 Pulse Ox 100 100 100 Oxygen Delivery Method Nasal Cannula Nasal Cannula Oxygen Flow Rate (L/min) 2 10/10/25 12:30 10/10/25 13:00 10/10/25 13:30 Temperature Temperature Source Pulse Rate 80 83 81 Respiratory Rate 11 L 12 11 L Blood Pressure 98/48 L 100/54 L 94/55 L Blood Pressure Mean 63 67 68 Pulse Ox 100 100 100 Oxygen Delivery Method Oxygen Flow Rate (L/min) 10/10/25 14:00 10/10/25 14:30 10/10/25 15:36 Temperature Temperature Source Pulse Rate 83 98 88 Respiratory Rate 11 L 15 18 Blood Pressure 132/79 H 129/79 H 117/68 Blood Pressure Mean 92 92 82 Pulse Ox 100 100 100 Oxygen Delivery Method Oxygen Flow Rate (L/min) Positive well nourished and well developed General Appearance ED: well developed; Negative for pallor HEENT Reports normocephalic, head/scalp atraumatic and moist mucous membranes Eyes EOMs intact bilaterally Eyes Narrative: Pupils are 4 mm bilaterally they are sluggishly reactive Neck no lymphadenopathy, supple and no JVD Resp normal respiratory effort and clear to auscultation bilaterally Cardio regular rate, regular rhythm and no murmurs GI normal to inspection, nondistended, normoactive bowel sounds and non-tender Palpation: soft Back/Spine no CVA tenderness and normal ROM Extremity normal to inspection General Extremety ED: Negative for edema General Extremity: Negative for edema Neuro moves all extremities, no focal motor deficits and no sensory deficits noted [place] Coma Scale: document GCS findings To Pain Obeys Commands Confused 12 Sensorium / Orientation: alert Meningeal Signs: no meningeal signs Speech: speech abnormal Details: Positive for slurred Motor Exam: strength 5/5 throughout Skin no rashes or lesions noted and no wounds Skin Narrative: There is no diaphoresis General Skin Exam: Negative for jaundice or pallor MDM MDM MDM Narrative Medical decision making narrative: Differential diagnosis includes opiate overdose other toxidrome coingestions alcohol intoxication intracranial hemorrhage respiratory depression hypoxia aspiration cardiac dysrhythmia electrolyte abnormalities liver dysfunction coagulopathy IV established and the patient received 2 mg of Narcan. Patient was allowed to sleep. He woke up was more alert conversant walking around the room. Tells me that he fell and hit his head at least over a week ago. He states that he has had speech problem since then. With his history of ITP he was concerned that he may have had a brain bleed. Therefore CT of the brain was obtained which does not show any intracranial hemorrhage. There is some evidence of sinus disease. Basic blood work returns essentially negative. Toxicology is presumptively positive for opiates, fentanyl, amphetamines, benzodiazepines, and cocaine. Patient wishes to be discharged and his family is going to take him to an inpatient detox/rehabilitation center in [place]. History & Record Review Discussion w/independent historian: Family Additional record(s) reviewed:: Prior ED visit and Prior labs Lab Data Attestation: I reviewed the patient's lab results. Labs: Laboratory Results - last 24 hr 10/10/25 10/10/25 10/10/25 08:54 09:01 13:44 WBC 8.6 RBC 4.78 Hgb 13.7 Hct 40.1 MCV 83.9 MCH 28.7 MCHC 34.2 RDW Std Deviation 38.6 RDW Coeff of Nba 12.7 Plt Count 282 MPV 10.0 Immature Gran % (Auto) 0.200 Neut % (Auto) 66.4 Lymph % (Auto) 26.6 Dukes % (Auto) 6.4 Eos % (Auto) 0.2 Baso % (Auto) 0.2 Absolute Neuts (auto) 5.7 Absolute Lymphs (auto) 2.29 Nucleated RBC % 0 PT 14.7 INR 1.1 APTT 32.5 Sodium 144 Potassium 3.7 Chloride 105 Carbon Dioxide 26.6 Anion Gap 12 BUN 15 Creatinine 1.10 Estim Creat Clear Calc 103.55 Est GFR (MDRD) Non-Af 96 BUN/Creatinine Ratio 13.3 Glucose 149 H Lactic Acid 1.6 Calcium 9.5 Total Bilirubin 0.77 Direct Bilirubin 0.32 H AST 20 ALT 18 Alkaline Phosphatase 66 Total Protein 7.8 Albumin 5.0 Globulin 2.8 Salicylates < 0.5 L Urine Opiates Screen PRESUMPTIVE POSITIVE U Buprenorphine Qual NEGATIVE Ur Oxycodone Screen NEGATIVE Urine Methadone Screen NEGATIVE Urine Fentanyl Screen PRESUMPTIVE POSITIVE Acetaminophen < 5.0 L Ur Barbiturates Screen NEGATIVE Ur Phencyclidine Scrn NEGATIVE Ur Amphetamines Screen PRESUMPTIVE POSITIVE U Benzodiazepines Scrn PRESUMPTIVE POSITIVE Urine Cocaine Screen PRESUMPTIVE POSITIVE U Cannabinoids Screen NEGATIVE Ethyl Alcohol < 10.1 Radiography Diagnostic Testing: Clinical Impression(s) from Imaging Studies Brain CT 10/10/25 14:55 IMPRESSION: No acute intracranial abnormalities. No acute fractures. Complete opacification of the right maxillary sinus, suggestive of sinus disease. Reading Location: [id number] EKG Initial EKG: Attestation: I personally reviewed and interpreted this EKG as follows: Comments: Normal sinus rhythm ventricular rate of 80 bpm. Changes of early repolarization noted. No QT prolongation. Discharge Plan Triage Chief Complaint: Overdose ED Provider: Ruperto Jimenez Dx/Rx/DC Orders Clinical Impression: Drug overdose, Opiate abuse, continuous Instructions: ED Drug Abuse Prescriptions: No Action NK Primary Care Provider: Care Physician,No Primary Referrals: Care Physician,No Primary [Primary Care Provider, Medical] Activity Restrictions/Additional Instructions: Please go to rehab with your family. Print Language: Lithuanian Disposition Disposition: Home, Self Care
[2025-10-10 09:03] LABS: Hematocrit 40.1 % (40-54); Hemoglobin 13.7 g/dL (13.0-16.5); Immature Granulocytes Count 0.020 X10^3/uL (0.0-0.0); Mean Corp Hgb Conc 34.2 g/dL (32-36); Mean Corpuscular Volume 83.9 fL (80-94); Mean Platelet Vol. 10.0 fl (6.2-12.0); NRBC Flagged by Analyzer 0 % (0-5); Platelet Count 282 K/mm3 (150-450); RBC Distribution Width CV 12.7 % (11.6-14.6); RBC Distribution Width SD 38.6 fl (35.1-43.9); Red Blood Count 4.78 M/mm3 (4.6-6.2); White Blood Count 8.6 K/mm3 (4.4-11.0)
[2025-10-10 09:11] LABS: Prothrombin Time (Protime)PT. 14.7 SECONDS (11.7-14.9)
[2025-10-10 09:12] LABS: Partial Thromboplast Time 32.5 Seconds (24.1-36.2)
[2025-10-10 09:25] LABS: AST(SGOT) 20 U/L (<=37); Alanine Aminotransfer ALT/SGPT 18 U/L (<=46); Albumin, Serum 5.0 g/dL (3.5-5.0); Alkaline Phosphatase 66 U/L (40-129); Anion Gap 12 (7-18); BUN 15 mg/dL (4-19); BUN/Creat Ratio 13.3 RATIO (10-20); Bilirubin, Direct 0.32 mg/dL (0.00-0.30); Calcium,Total 9.5 mg/dL (7.6-11.0); Carbon Dioxide 26.6 mmol/L (20.0-29.0); Chloride 105 mmol/L (96-106); Estimated Creatinine Clearance 103.55 ml/min (50-250); Globulin 2.8 g/dL (2.2-4.2); Glucose 149 mg/dL (70-99); Potassium 3.7 mmol/L (3.5-5.1)
--- OUTSIDE RECORDS SUMMARY | 2025-10-10 09:32 | XMS RPT_ITS | CCD ---
Author Organization [facility] Care Team Providers Care Practical Nursing Teacher Name Role Phone Unavailable Primary Care Provider UnavailDr. Jasper Powers Emergency Provider Care Physician, No Primary Primary Care Provider Unavailable Dr. Karol Mari Attending Provider Dr. Karol Mari Admit Provider Dr. Karol Mari Other Provider Dr. Abhishek Dey Other Provider [phone] Dr. Fanta Heard Other Provider Dr. Radha Rice Other Provider Dr. Daniel Harris Other Provider Dr. Killian Elam Other Provider Dr. Kay Yoo Attending Provider Fredo, Dr. Kay Cortez Other Provider SYSTEM, PROVIDER NOT IN Referring Unavaila BRENT Swift Admitting Unavailable BRENT BUTTERFIELD Attending Unavailable ANTON PHAM Admitting Unavailable ANTON PHAM Attending Unavailable SYSTEM, PROVIDER NOT IN Referring Unavaila Killian Bustillo DO Unavailable Doup RN, Olimpia Unavailable Unavailable Neeta Estrada Unavailable UnavailMariusz Alvarez MD Primary Care Provider Care Physician, No Primary Primary Care Unava ilable Suresh Oneill Admitting Unavailable Suresh Oneill Consulting Unavailable Suresh Oneill Attending Unavailable Harvey Singh Attending Unavailable Care Physician, No Primary Primary Care Unava ilable Care Physician, No Primary Primary Care Unava ilable Jasper Payan Attending Unavailable Suresh Oneill Attending Unavailable Suresh Oneill Admitting Unavailable Care Physician, No Primary Primary Care Unava ilable Podlogar ROLL HANDLER.Bethany MASON Unavailable Knoble ROLL HANDLER.Danuta MASON Unavailable Knoble ROLL HANDLER.Danuta MASON Unavailable MARIUSZ ALLEN Referring Unavailab MARIUSZ Barone Primary Care Unavailab le MARIUSZ ALLEN Primary Care Unavailab KILLIAN Bauer Referring Unavailable SELF Referring Unavailable SELF Referring Unavailable KILLIAN ELAM Referring Unavailable KILLIAN ELAM Attending Unavailable KILLIAN ELAM Attending Unavailable KILLIAN ELAM Referring Unavailable GRACIE NORRIS Referring Unavailable MARIUSZ ALLEN Attending Unavailab MARIUSZ Barone Primary Care Unavailab le SELF Referring Unavailable SELF Referring Unavailable Medications Current Medications Medication Drug Class(es) Dates Sig (Normalized) Sig (Original) acetaminophen 325 mg / oxyCODONE hydrochloride 5 mg oral tablet (3 sources) Opioid Agonist Start: 12-06-2023 take 1 tablet by mouth every eight hours Oxycodone-Acetami nophen (Percocet) 5-325 mg tablet Active 1 TABLET PO Q8H 10 3 December 06, 2023 Start: 10-02-2023 End: 10-02-2023 take 1 tablet by mouth once, then take 1 tablet by mouth every hour oxyCODONE-acetaminophen (PERCOCET) 5-325 mg tablet Indications: Chronic ITP (idiopathic thrombocytopenia) (HCC) Take 1 tablet by mouth one time only for 1 dose. about 1 hour prior to bone marrow biopsy. 1 tablet 0 10/02/2023 10/02/2023 Comment on above: Take 1 tablet by jayce one time only for 1 dose. about 1 hour prior to bone marrow biopsy. cholecalciferol 1.25 mg oral capsule (2 sources) Vitamin D Start: 024 End: 025 take 1 capsule by mouth every week cholecalciferol, Vitamin D3, (VITAMIN D3) 1,250 mcg (50,000 unit) cap capsule Indications: Vitamin D deficiency Take 1 capsule by mouth one time a week. 12 capsule 09/29/2024 Active dexamethasone 4 mg oral tablet (5 sources) Corticosteroid Start: End: dexAMETHasone (DECADRON) 4 mg tablet Take 10 tablets by mouth daily with breakfast for 4 days. 40 tablet 0 05/30/2023 06/03/2023 Active Start: 05-24-2023 End: 12-06-2023 take 40 mg by mouth once daily Dexamethasone Discontin ued 40 MG PO DAILY 07 14May 24, 2023 12:00am December 06, 2023 1:37pm Comment on above: Take 10 tablets by m outh daily with breakfast for 4 days. eltrombopag 50 mg oral tablet (20 sources) Thrombopoietin Receptor Agonist Start: End: take 1 tablet by mouth once daily 1 hour(s) after mealtime eltrombopag olamine (PROMACTA) 50 mg tablet Indications: Chronic ITP (idiopathic thrombocytopenia) (HCC) Take 1 tablet (50 mg) by mouth once daily. Administer on an empty stomach, 1 hour before or 2 hours after a meal. 30 tablet 5 02/13/2024 Active Comment on above: Take 1 tablet by jayce once daily. Administer on an empty stomach, 1 hour before or 2 hours after a meal. Take 1 tablet (50 mg ) by mouth once daily. Administer on an empty stomach, 1 hour before or 2 hours after a meal. fluconazole 150 mg oral tablet (1 source) Azole Antifungal Start: End: take 2 tablets by mouth every week fluconazole (DIFLUCAN) 150 mg tablet Indications: Tinea versicolor Take 2 tablets by mouth one time a week for 14 days. 4 tablet 07/07/2024 07/21/2024 Active microencapsulated potassium chloride 20 meq extended release oral tablet (6 sources) Start: End: take 1 tablet by mouth once daily potassium chloride ER (KLOR-CON) 20 mEq tablet Take 1 tablet by mouth once daily for 10 days. 10 tablet 0 06/18/2023 06/28/2023 Active Comment on above: Take 1 tablet by jayce th once daily for 10 days. predniSONE 5 mg oral tablet (20 sources) Start: take 1 tablet by mouth once daily predniSONE (DELTASONE) 5 mg tablet Take 1 tablet by mouth once daily. 30 tablet 04/09/2024 Active Start: 06-11-2023 End: 02-13-2024 take 3 tablets by mouth once daily, then take 2.5 tablets by mouth once daily, then take 2 tablets by mouth once daily, then take 1.5 tablets by mouth once daily, then take 1 tablet by mouth once daily, then take 0.5 tablet by mouth once daily predniSONE (DELTASONE) 20 mg tablet Take 3 tablets by mouth once daily for 21 days, THEN 2.5 tablets once daily for 21 days, THEN 2 tablets once daily for 21 days, THEN 1.5 tablets once daily for 21 days, THEN 1 tablet once daily for 21 days, THEN 0.5 tablets once daily for 21 days. 221 tablet 0 10/11/2023 02/13/2024 Active End: 07-07-2024 take 1 tablet by mouth once daily predniSONE (DELTASONE) 20 mg tablet Take 20 mg by mouth once daily. 07/07/2024 Discontinued (Course of therapy completed) Comment on above: Take 3 tablets by [facility] once daily for 21 days, THEN 2.5 tablets once daily for 21 days, THEN 2 tablets once daily for 21 days, THEN 1.5 tablets once daily for 21 days, THEN 1 tablet once daily for 21 days, THEN 0.5 tablets once daily for 21 days. sertraline 50 mg oral tablet (7 sources) Serotonin Reuptake Inhibitor Start: 07-07-2024 take 1 tablet by mouth once daily sertraline (ZOLOFT) 50 mg tablet Take 1 tablet by mouth once daily. 30 tablet 2 07/07/2024 Active Completed/Discontinued Medications Medication Drug Class(es) Dates Sig (Normalized) Sig (Original) acetaminophen 325 mg oral tablet (5 sources) Start: 05-25-2024 End: 05-25-2024 acetaminophen 650 mg tab(s) (TYLENOL) Start: 04-13-2024 End: 04-13-2024 acetaminophen 650 mg tab(s) (TYLENOL) Start: 03-19-2024 End: 03-19-2024 acetaminophen 650 mg tab(s) (TYLENOL) Start: 03-06-2024 End: 03-06-2024 acetaminophen 650 mg tab(s) (TYLENOL) Start: 02-17-2024 End: 02-17-2024 acetaminophen 650 mg tab(s) (TYLENOL) diphenhydrAMINE hydrochloride 25 mg oral capsule (5 sources) Histamine-1 Receptor Antagonist Start: 05-25-2024 End: 05-25-2024 diphenhydrAMINE 50 mg capsule (BENADRYL) Start: 04-13-2024 End: 04-13-2024 diphenhydrAMINE 50 mg capsul e (BENADRYL) Start: 03-19-2024 End: 03-19-2024 diphenhydrAMINE 50 mg capsul e (BENADRYL) Start: 03-06-2024 End: 03-06-2024 diphenhydrAMINE 25 mg capsul e (BENADRYL) Start: 02-17-2024 End: 02-17-2024 diphenhydrAMINE 50 mg capsul e (BENADRYL) immune globulin (human) (IgG) 40 g in empty bag Total Volume 400 mL (GAMMAGARD) (1 source) Start: 03-06-2024 End: 03-06-2024 immune globulin (human) (IgG) 40 g in empty bag Total Volume 400 mL (GAMMAGARD) LORazepam 0.5 mg oral tablet (1 source) Benzodiazepine Start: 10-02-2023 End: 10-02-2023 take 1 tablet by mouth once, then take 1 tablet by mouth every hour LORazepam (ATIVAN) 0.5 mg Indications: Chronic ITP (idiopathic thrombocytopenia) (HCC) Take 1 tablet by mouth one time only for 1 dose. about 1 hour prior to bone marrow biopsy. 1 tablet 0 10/02/2023 10/02/2023 Comment on above: Take 1 tablet by [facility] one time only for 1 dose. about 1 hour prior to bone marrow biopsy. omeprazole 20 mg delayed release oral capsule (20 sources) Proton Pump Inhibitor Start: 11-11-2023 End: 02-14-2024 take 2 capsules by mouth once daily omeprazole (PRILOSEC) 20 mg capsule Take 2 capsules by mouth once daily. 60 capsule 2 11/11/2023 02/14/2024 Discontinued Start: 07-02-2023 take 1 capsule by [facility] once daily omeprazole (PRILOSEC) 20 mg capsule Take 1 capsule by mouth once daily. 30 capsule 2 07/02/2023 Active Comment on above: Take 1 capsule by mo [facility] once daily. Take 2 capsules by m [facility] once daily. ondansetron 8 mg oral tablet (20 sources) Serotonin-3 Receptor Antagonist Start: End: take 1 tablet by mouth every twelve hours as needed ondansetron (ZOFRAN) 8 mg tablet Take 1 tablet by mouth every 12 hours as needed for nausea/vomiting. 20 tablet 1 11/29/2023 02/14/2024 Discontinued take 1 tablet by jayce every eight hours as needed ondansetron (ZOFRAN) 4 mg tablet Take 4 mg by mouth every 8 hours as needed for nausea/vomiting. Active Comment on above: Take 1 tablet by jayce every 12 hours as needed for nausea/vomiting. riTUXimab 682.5 mg in NaCl 0.9% 250 mL (RITUXAN) (2 sources) Start: 03-19-2024 End: 03-19-2024 riTUXimab 682.5 mg in NaCl 0.9% 250 mL (RITUXAN) Start: 02-17-2024 End: 02-17-2024 riTUXimab 682.5 mg in NaCl 0 .9% 250 mL (RITUXAN) riTUXimab 700 mg in NaCl 0.9 % 250 mL (RITUXAN) (2 sources) Start: 05-25-2024 End: 05-25-2024 riTUXimab 700 mg in NaCl 0.9 % 250 mL (RITUXAN) Start: 04-13-2024 End: 04-13-2024 riTUXimab 700 mg in NaCl 0.9 % 250 mL (RITUXAN) sulfamethoxazole 800 mg / trimethoprim 160 mg oral tablet (20 sources) Dihydrofolate Reductase Inhibitor Antibacterial, Sulfonamide Antimicrobial Start: 07-02-2023 End: 02-14-2024 sulfamethoxazole-trimethopri m (BACTRIM DS) 800-160 mg per tablet Take 1 tablet every Saturday, Saturday and Saturday. 30 tablet 1 07/02/2023 02/14/2024 Discontinued Start: 11-28-2022 End: 05-27-2023 take 1 tablet by mouth twice daily sulfamethoxazole-trimethoprim (BACTRIM D S) 800-160 mg per tablet Indications: Abscess of groin, right Take 1 tablet by mouth twice daily. 10 tablet 0 11/28/2022 05/27/2023 Discontinued Comment on above: Take 1 tablet by jacye th twice daily. Take 1 tablet every Saturday, Saturday and Saturday. Problems Active Problems Problem Classification Problem Date Documented Da te Episodic/Chronic Anxiety disorders (2 sources) Mixed anxiety and depressive disorder; Translations: [Other specified anxiety disorders] Onset: 4 07-07-2024 Chronic Coagulation and hemorrhagic disorders (20 sources) Thrombocytopenic disorder; Translations: [Thrombocytopenia, unspecified] Onset: 3 05-21-2023 Chronic Coagulation and hemorrhagic disorders (6 sources) Spontaneous ecchymosis; Translations: [Spontaneous ecchymoses] 05-21-2023 Episodic Complications of surgical procedures or medical care (2 sources) Disorder of immune function; Translations: [Other serum reaction due to other serum, initial encounter] 12-06-2023 Episodic Fever of unknown origin (2 sources) Fever; Translations: [Fever, unspecified] 12-06-2023 Episodic Fluid and electrolyte disorders (1 source) Hypokalemia; Translations: [Hypokalemia] 09-29-2024 Episodic Headache; including migraine (1 source) Headache; Translations: [Headache] 12-28-2023 Episodic Headache; including migraine (1 source) Headache; including migraine; Translations: [Headache, unspecified] Onset: Malaise and fatigue (6 sources) Malaise; Translations: [Other malaise] 05-21-2023 Episodic Nutritional deficiencies (1 source) Vitamin D deficiency; Translations: [Vitamin D deficiency, unspecified] 09-29-2024 Chronic Other connective tissue disease (4 sources) Muscle pain; Translations: [Myalgia, unspecified site] 05-21-2023 Episodic Other connective tissue disease (2 sources) Myalgia, unspecified site; Translations: [Myalgia and myositis, unspecified] 05-22-2023 Episodic Other connective tissue disease (1 source) Muscle finding; Translations: [Myalgia, unspecified site] 06-18-2023 Episodic Other gastrointestinal disorders (1 source) Splenomegaly; Translations: [Splenomegaly, not elsewhere classified] 06-18-2023 Episodic Other hematologic conditions (3 sources) History of immune thrombocytopenia; Translations: [Personal history of diseases of the blood and blood-forming organs and certain disorders involving the immune mechanism] 12-06-2023 Episodic Other inflammatory condition of skin (20 sources) Pityriasis rosea; Translations: [Pityriasis rosea] Onset: 6 01-17-2016 Chronic Substance-related disorders (2 sources) Opioid abuse, uncomplicated; Translations: [Opioid abuse, uncomplicated] Onset: Chronic Unclassified (2 sources) NO SHOW 07-04-2023 Viral infection (2 sources) Viral disease; Translations: [Viral infection, unspecified] 12-06-2023 Episodic Past or Other Problems Problem Classification Problem Date Documented Da te Episodic/Chronic Mycoses (2 sources) Pityriasis versicolor; Translations: [Pityriasis versicolor] Onset: 07-07-2024 07-07-2024 Episodic Other connective tissue disease (1 source) Myalgia, other site; Translations: [Myalgia, other site] Onset: 12-12-2023 Episodic Unclassified (1 source) bruising and pain Onset: 05-24-2023 Results Test Name Value Interpretation Reference Range Facility [facility] 09-29-2024 [facility] Telephone (FAMWS) ZANE BUITRAGO ([id number]) 01 M [facility] Date Time Provider Department 09/29/24 MARIUSZ ALLEN [facility] During your visit today, we recorded the following information about you: Mariusz Allen MD 09/29/2024 10:38 AM Signed Vitamin D level severely low. Recommend 50,000 units of vitamin D weekly x 12 weeks and recheck in 3 months. Other labs unremarkable except for low sugar and low potassium level. Recommend eating 3 healthy meals per day to prevent low sugars. Eat more potassium rich foods to correct for low level. Recheck level in 3-4 weeks. Hawa Ronquillo LPN 09/29/2024 1:31 PM Signed letter sent to patient to call office back regarding results. Hawa Ronquillo LPN Allergies As of Date: 09/29/2024 (No Known Allergies) Date Reviewed: 07/07/2024 Reviewed by: Carlene Reed LPN - Fully Assessed Reason for Visit: Results [95] Primary Visit Diagnosis:Vitamin D deficiency [E55.9] Other Visit Diagnosis:Hypokalemia [E87.6] Order(s):cholecalcifer ol, Vitamin D3, (VITAMIN D3) 1,250 mcg (50,000 unit) cap capsuleTake 1 capsule by mouth one time a week.Disp: 12 capsuleRfl: 0 VITAMIN D 25 HYDROXY [SQVITD] Order #: [id number] FUTURE Prescriptions as of 01/20/2025 - cholecalciferol, Vitamin D3, (VITAMIN D3) 1,250 mcg (50,000 unit) cap capsule Take 1 capsule by mouth one time a week. - ondansetron (ZOFRAN) 4 mg tablet Take 4 mg by mouth every 8 hours as needed for nausea/vomiting. - sertraline (ZOLOFT) 50 mg tablet Take 1 tablet by mouth once daily. - predniSONE (DELTASONE) 5 mg tablet Take 1 tablet by mouth once daily. - eltrombopag olamine (PROMACTA) 50 mg tablet Take 1 tablet (50 mg) by mouth once daily. Administer on an empty stomach, 1 hour before or 2 hours after a meal. Problem List As Of Date 09/29/2024 Noted Resolved Pityriasis rosea [L42] 01/17/2016 Acute ITP (HCC) [D69.3] 06/25/2023 Chronic ITP (idiopathic thrombocytopenia) (HCC)*09/24/2023 Prescriptions ordered this encounter Disp Refills Start End CHOLECALCIFEROL (VITAMIN D3) 1,250 M* 12 c* 0 09/29/2024 12/28/2024 Route: ORAL Sig: Take 1 capsule by mouth one time a week. Letter Text Encounter Status:Closed by MARIUSZ ALLEN on 01/20/25 Normal [facility] 25(OH)[facility]3 [facility] 25-hydroxyvitamin D3 [Mass/Vol] 15.4 ng/mL Low 31.0-80.0 [facility] Comment on above: Order Comment: Speci men Type: BLOOD SPECIMENOrdering Facility: [facility] Address: [address] [place] [address] Result Comment: Clas sification of 25 [place] Vitamin D status: Deficiency/Insufficiency: < or = 30 ng/ml. Sufficiency/Optimal Levels: 31-80 ng/mL Toxicity: > 100 ng/mL. Test performed by chemiluminescent immunoassay. Performed By: #### 1 989-3 ####[facility] LAB[facility] [id number] [facility] [place] [place] [address] [place] CBC W Auto Differential pane l (Bld)on 09-28-2024 Basophils (Bld) [#/Vol] 0.03 10*3/uL Normal <0.11 [facility] Comment on above: Order Comment: Speci men Type: BLOOD SPECIMENOrdering Facility: [facility] Address: [address] [place] [address] Performed By: #### 5 7021-8 ####[facility] [id number] [place] [address] [place] Basophils/100 WBC (Bld) 0.5 % Normal [facility] Comment on above: Order Comment: Speci men Type: BLOOD SPECIMENOrdering Facility: [facility] Address: [address] [place] [address] Performed By: #### 5 7021-8 ####[facility] [id number] [place] [address] [place] Differential cell count method Nom (Bld) Auto Normal [facility] Comment on above: Order Comment: Speci men Type: BLOOD SPECIMENOrdering Facility: [facility] Address: [address] [place] [address] Performed By: #### 5 7021-8 ####[facility] [id number] [place] [address] [place] Eosinophils (Bld) [#/Vol] 0.12 10*3/uL Normal <0.46 [facility] Comment on above: Order Comment: Speci men Type: BLOOD SPECIMENOrdering Facility: [facility] Address: [address] [place] [address] Performed By: #### 5 7021-8 ####[facility]DA [id number] [place] [address] [place] Eosinophils/100 WBC (Bld) 2.1 % Normal [facility] Comment on above: Order Comment: Speci men Type: BLOOD SPECIMENOrdering Facility: [facility] Address: [address] [place] [address] Performed By: #### 5 7021-8 ####[facility] [id number] [place] [address] [place] Erythrocyte distribution width (RBC) [Ratio] 11.9 % Normal 11.5-15.0 [facility] Comment on above: Order Comment: Speci men Type: BLOOD SPECIMENOrdering Facility: [facility] Address: [address] [place] [address] Performed By: #### 5 7021-8 ####[facility] [id number] [place] [address] [place] Hematocrit (Bld) [Volume fraction] 42.3 % Normal 39.0-51.0 [facility] Comment on above: Order Comment: Speci men Type: BLOOD SPECIMENOrdering Facility: [facility] Address: [address] [place] [address] Performed By: #### 5 7021-8 ####[facility] [id number] [place] [address] [place] Hemoglobin (Bld) [Mass/Vol] 14.2 g/dL Normal 13.0-17.0 [facility] Comment on above: Order Comment: Speci men Type: BLOOD SPECIMENOrdering Facility: [facility] Address: [address] [place] [address] Performed By: #### 5 7021-8 ####[facility]ILL[facility]OWNCL[facility] [id number] [place] [address] [place] Immature granulocytes (Bld) [#/Vol] 10*3/uL Normal <0.10 [facility] Comment on above: Order Comment: Speci men Type: BLOOD SPECIMENOrdering Facility: [facility] Address: [address] [place] [address] Performed By: #### 5 7021-8 ####[facility] [id number] [place] [address] [place] Immature granulocytes/100 WBC (Bld) 0.2 % Normal [facility] Comment on above: Order Comment: Speci men Type: BLOOD SPECIMENOrdering Facility: [facility] Address: [address] [place] [address] Performed By: #### 5 7021-8 ####[facility] [id number] [place] [address] [place] Lymphocytes (Bld) [#/Vol] 2.18 10*3/uL Normal 1.00-4.00 [facility] Comment on above: Order Comment: Speci men Type: BLOOD SPECIMENOrdering Facility: [facility] Address: [address] [place] [address] Performed By: #### 5 7021-8 ####[facility] [id number] [place] [address] [place] Lymphocytes/100 WBC (Bld) 38.2 % Normal [facility] Comment on above: Order Comment: Speci men Type: BLOOD SPECIMENOrdering Facility: [facility] Address: [address] [place] [address] Performed By: #### 5 7021-8 ####[facility] [id number] [place] [address] [place] MCH (RBC) [Entitic mass] 29.5 pg Normal 26.0-34.0 [facility] Comment on above: Order Comment: Speci men Type: BLOOD SPECIMENOrdering Facility: [facility] Address: [address] [place] [address] Performed By: #### 5 7021-8 ####[facility] [id number] [place] [address] [place] MCHC (RBC) [Mass/Vol] 33.6 g/dL Normal 30.5-36.0 [facility] Comment on above: Order Comment: Speci men Type: BLOOD SPECIMENOrdering Facility: [facility] Address: [address] [place] [address] Performed By: #### 5 7021-8 ####[facility] [id number] [place] [address] [place] MCV (RBC) [Entitic vol] 87.9 fL Normal 80.0-100.0 [facility] Comment on above: Order Comment: Speci men Type: BLOOD SPECIMENOrdering Facility: [facility] Address: [address] [place] [address] Performed By: #### 5 7021-8 ####[facility] [id number] [place] [address] [place] Monocytes (Bld) [#/Vol] 0.30 10*3/uL Normal <0.87 [facility] Comment on above: Order Comment: Speci men Type: BLOOD SPECIMENOrdering Facility: [facility] Address: [address] [place] [address] Performed By: #### 5 7021-8 ####[facility] [id number] [place] [address] [place] Monocytes/100 WBC (Bld) 5.3 % Normal [facility] Comment on above: Order Comment: Speci men Type: BLOOD SPECIMENOrdering Facility: [facility] Address: [address] [place] [address] Performed By: #### 5 7021-8 ####[facility] [id number] [place] [address] [place] Neutrophils (Bld) [#/Vol] 3.07 10*3/uL Normal 1.45-7.50 [facility] Comment on above: Order Comment: Speci men Type: BLOOD SPECIMENOrdering Facility: [facility] Address: [address] [place] [address] Performed By: #### 5 7021-8 ####[facility] [id number] [place] [address] [place] Neutrophils/100 WBC (Bld) 53.7 % Normal [facility] Comment on above: Order Comment: Speci men Type: BLOOD SPECIMENOrdering Facility: [facility] Address: [address] [place] [address] Performed By: #### 5 7021-8 ####[facility] [id number] [place] [address] [place] Nucleated RBC (Bld) [#/Vol] 10*3/uL Normal <0.01 [facility] Comment on above: Order Comment: Speci men Type: BLOOD SPECIMENOrdering Facility: [facility] Address: [address] [place] [address] Performed By: #### 5 7021-8 ####[facility] [id number] [place] [address] [place] Nucleated RBC/100 WBC (Bld) [Ratio] 0.0 /100 WBC Normal [facility] Comment on above: Order Comment: Speci men Type: BLOOD SPECIMENOrdering Facility: [facility] Address: [address] [place] [address] Performed By: #### 5 7021-8 ####[facility] [id number] [place] [address] [place] Platelet mean volume (Bld) [Entitic vol] 10.4 fL Normal 9.0-12.7 [facility] Comment on above: Order Comment: Speci men Type: BLOOD SPECIMENOrdering Facility[facility] Address: [address] [place] [address] Performed By: #### 5 7021-8 ####[facility] EMERGENCYPATRICIA [id number] [place] [address] [place] Platelets (Bld) [#/Vol] 204 10*3/uL Normal 150-400 [facility] Comment on above: Order Comment: Speci men Type: BLOOD SPECIMENOrdering Facility: [facility] Address: [address] [place] [address] Performed By: #### 5 7021-8 ####[facility] EMERGENCYPATRICIA [id number] [place] [address] [place] RBC (Bld) [#/Vol] 4.81 10*6/uL Normal 4.20-6.00 [facility] Comment on above: Order Comment: Speci men Type: BLOOD SPECIMENOrdering Facility: [facility] Address: [address] [place] [address] Performed By: #### 5 7021-8 ####[facility]IT[facility] [id number] [place] [address] [place] WBC (Bld) [#/Vol] 5.71 10*3/uL Normal 3.70-11.00 [facility] Comment on above: Order Comment: Speci men Type: BLOOD SPECIMENOrdering Facility: [facility] Address: [address] [place] [address] Performed By: #### 5 7021-8 ####[facility] LORENZA MILLTOWNCLIA [id number] [place] [address] [place] Comprehensive metabolic 2000 panelon 09-28-2024 Albumin [Mass/Vol] 4.9 g/dL Normal 3.9-4.9 [facility] Comment on above: Order Comment: Speci men Type: BLOOD SPECIMENOrdering Facility: [facility] Address: [address] [place] [address] Performed By: #### 2 4323-8 ####[facility] MILLTOWNCLIA [id number] [place] [address] [place] ALP [Catalytic activity/Vol] 57 U/L Normal 38-113 [facility] Comment on above: Order Comment: Speci men Type: BLOOD SPECIMENOrdering Facility: [facility] Address: [address] [place] [address] Performed By: #### 2 4323-8 ####[facility]PITALWNCLIA [id number] [place] [address] [place] ALT [Catalytic activity/Vol] 9 U/L Low 10-54 [facility] Comment on above: Order Comment: Speci men Type: BLOOD SPECIMENOrdering Facility: [facility] Address: [address] [place] [address] Performed By: #### 2 4323-8 ####[facility] MILLTOWNCLIA [id number] [place] [address] [place] Anion gap [Moles/Vol] 11 mmol/L Normal 8-15 [facility] Comment on above: Order Comment: Speci men Type: BLOOD SPECIMENOrdering Facility: [facility] Address: [address] [place] [address] Performed By: #### 2 4323-8 ####[facility] HOSPITALWNCLIA [id number] [place] [address] [place] AST [Catalytic activity/Vol] 12 U/L Low 14-40 [facility] Comment on above: Order Comment: Speci men Type: BLOOD SPECIMENOrdering Facility: [facility] Address: [address] [place] [address] Performed By: #### 2 4323-8 ####[facility] EMERGENCYNCLIA [id number] [place] [address] [place] Bilirubin [Mass/Vol] 0.5 mg/dL Normal 0.2-1.3 [facility] Comment on above: Order Comment: Speci men Type: BLOOD SPECIMENOrdering Facility: [facility] Address: [address] [place] [address] Performed By: #### 2 4323-8 ####[facility] BOULEVARDA [id number] [place] [address] [place] Calcium [Mass/Vol] 9.6 mg/dL Normal 8.5-10.2 [facility] Comment on above: Order Comment: Speci men Type: BLOOD SPECIMENOrdering Facility: [facility] Address: [address] [place] [address] Performed By: #### 2 4323-8 ####[facility] HOSPITALLIA [id number] [place] [address] [place] Chloride [Moles/Vol] 104 mmol/L Normal 98-107 [facility] Comment on above: Order Comment: Speci men Type: BLOOD SPECIMENOrdering Facility: [facility] Address: [address] [place] [address] Performed By: #### 2 4323-8 ####[facility] HOSPITALLIA [id number] [place] [address] [place] CO2 [Moles/Vol] 28 mmol/L Normal 22-30 [facility] Comment on above: Order Comment: Speci men Type: BLOOD SPECIMENOrdering Facility: [facility] Address: [facility] [place] [address] Performed By: #### 2 4323-8 ####[facility] ANGELOAK RIDGECATEUINTA[facility] [id number] [place] [address] [place] Creatinine [Mass/Vol] 1.05 mg/dL Normal 0.73-1.22 [facility] Comment on above: Order Comment: Speci men Type: BLOOD SPECIMENOrdering Facility: [facility] Address: [address] [place] [address] Performed By: #### 2 4323-8 ####[facility] EMERGENCYNCLI [id number] [place] [address] [place] Creatinine and Glomerular filtration rate.predicted panel (S/P/Bld) 102 mL/min/1.73m??? Normal >=60 [facility] Comment on above: Order Comment: Speci men Type: BLOOD SPECIMENOrdering Facility: [facility] Address: [address] [place] [address] Result Comment: Camila mated Glomerular Filtration Rate (eGFR) is calculated using the 2020 CKD-EPI creatinine equation. This equation utilizes serum creatinine, sex, and age as parameters. The creatinine assay has traceable calibration to isotope dilution-mass spectrometry. Refer to KDIGO guidelines for clinical interpretation. In patients with unstable renal function, e.g. those with acute kidney injury, the eGFR may not accurately reflect actual GFR. Performed By: #### 2 4323-8 ####[facility] EMERGENCYNCLIA [id number] [place] [address] [place] Glucose [Mass/Vol] 56 mg/dL Low 74-99 [facility] Comment on above: Order Comment: Speci men Type: BLOOD SPECIMENOrdering Facility: [facility] Address: [address] [place] [address] Result Comment: The [place] Diabetes Association (ADA) provides guidance for cutoff values for fasting glucose and random glucose. The ADA defines fasting as no caloric intake for at least 8 hours. Fasting plasma glucose results between 100 to 125 mg/dL indicate increased risk for diabetes (prediabetes). Fasting plasma glucose results greater than or equal to 126 mg/dL meet the criteria for diagnosis of diabetes. In the absence of unequivocal hyperglycemia, results should be confirmed by repeat testing. In a patient with classic symptoms of hyperglycemia or hyperglycemic crisis, random plasma glucose results greater than or equal to 200 mg/dL meet the criteria for diagnosis of diabetes. Reference: Standards of Medical Care in Diabetes 2016, [place] Diabetes Association. Diabetes Care. 2016.39(Suppl 1). Performed By: #### 2 4323-8 ####COMMUNITY HOSPITALWAKLIA [id number] [place] [address] [place] Potassium [Moles/Vol] 3.3 mmol/L Low 3.7-5.1 [facility] Comment on above: Order Comment: Speci men Type: BLOOD SPECIMENOrdering Facility: [facility] Address: [address] [place] [address] Performed By: #### 2 4323-8 ####[facility] BOULEVARDA [id number] [place] [address] [place] Protein [Mass/Vol] 7.2 g/dL Normal 6.3-8.0 [facility] Comment on above: Order Comment: Speci men Type: BLOOD SPECIMENOrdering Facility: [facility] Address: [address] [place] [address] Performed By: #### 2 4323-8 ####[facility] HOSPITALLIA [id number] [place] [address] [place] Sodium [Moles/Vol] 143 mmol/L Normal 136-144 [facility] Comment on above: Order Comment: Speci men Type: BLOOD SPECIMENOrdering Facility: [facility] Address: [address] [place] [address] Performed By: #### 2 4323-8 ####[facility] HOSPITALLIA [id number] [place] [address] [place] Urea nitrogen [Mass/Vol] 17 mg/dL Normal 9-24 [facility] Comment on above: Order Comment: Speci men Type: BLOOD SPECIMENOrdering Facility: [facility] Address: [address] [place] [address] Performed By: #### 2 4323-8 ####[facility] HOSPITALLIA [id number] [place] [address] [place] [facility] [place] LIPID PANEL, NONFASTINGon Cholesterol [Mass/Vol] 162 mg/dL Normal <200 [facility] Comment on above: Order Comment: Speci men Type: BLOOD SPECIMEN [facility] Address: [address] [place] [address] Result Comment: <200 mg/dL, Desirable 200-239 mg/dL, Borderline high >239 mg/dL, High Performed By: #### 5 7021-8 #### [facility] CLIA [id number] [address] [place] [address] [place] HDL CHOLESTEROL, NF 37 mg/dL Low >39 [facility] Comment on above: Order Comment: Speci men Type: BLOOD SPECIMEN [facility] Address: [address] [place] [address] Result Comment: 40-5 9 mg/dL, Acceptable >59 mg/dL, High: Negative risk factor for coronary heart disease <40 mg/dL, Low: Positive risk factor for coronary heart disease Performed By: #### 5 7021-8 #### [facility] CLIA [id number] [address] [place] [address] [place] LDL CHOLESTEROL, NF 102 mg/dL High <100 [facility] Comment on above: Order Comment: Speci men Type: BLOOD SPECIMEN [facility] Address: [address] [place] [address] Result Comment: <100 mg/dL, Optimal 100-129 mg/dL, Near optimal/above optimal 130-159 mg/dL, Borderline high 160-189 mg/dL, High >189 mg/dL, Very high Secondary prevention optimal LDL Cholesterol levels are recommended to be < 70 mg/dL Performed By: #### 5 7021-8 #### [facility] CLIA [id number] [address] [place] [address] [place] LDL/HDL RATIO, NF 2.76 mg/dL High <2.54 [facility] Comment on above: Order Comment: Prince oliveira Type: BLOOD SPECIMEN [facility] Address: [address] [place] [address] Result Comment: Refe oanh: 1. National Cholesterol Education Program ATP III Guideline At-A-Glance Quick Desk Reference: National Heart, Lung, and Blood [place]. National Institutes of Health. 2001: NIH Publication No. 01-3305. 2. An International Atherosclerosis Society position paper: global recommendations for the management of dyslipidemia: executive summary, Atherosclerosis. 2014: 232(2):410-413. Cut Points from the Lipid Research Clinic's Prevalence Study for ages 20 to 24 years can be located in the following reference: Expert Panel on Integrated Guidelines for Cardiovascular Health and Risk Reduction in Children and Adolescents: National Heart, Lung and Blood [place]. Pediatrics. 2011:128(Suppl 5):L351-425. Performed By: #### 5 7021-8 #### [facility] CLIA [id number] [address] [place] [address] [place] NON HDL CHOL, NF 125 mg/dL Normal <130 [facility] Comment on above: Order Comment: Prince oliveira Type: BLOOD SPECIMEN [facility] Address: [address] [place] [address] Result Comment: <130 mg/dL, Optimal 130-159 mg/dL, Near optimal/above optimal 160-189 mg/dL, Borderline high 190-219 mg/dL, High >219 mg/dL, Very high Secondary prevention optimal non HDL Cholesterol levels are recommended to be <100 mg/dL Performed By: #### 5 7021-8 #### [facility] CLIA [id number] [address] [place] [address] [place] T CHOL/HDL RATIO NF 4.38 mg/dL Normal <5.10 [facility] Comment on above: Order Comment: Speci men Type: BLOOD SPECIMEN [facility] Address: [address] [place] [address] Performed By: #### 5 7021-8 #### [facility] CLIA [id number] [address] [place] [address] [place] TRIGLYCERIDES, NF 117 mg/dL Normal <150 [facility] Comment on above: Order Comment: Speci men Type: BLOOD SPECIMEN [facility] Address: [address] [place] [address] Result Comment: <150 mg/dL, Normal 150-199 mg/dL, Borderline high 200-499 mg/dL, High >499 mg/dL, Very high Performed By: #### 5 7021-8 #### [facility] CLIA [id number] [address] [place] [address] [place] VLDL CHOLESTEROL, NF 23 mg/dL Normal <30 [facility] Comment on above: Order Comment: Speci men Type: BLOOD SPECIMEN [facility] Address: [address] [place] [address] Performed By: #### 5 7021-8 #### [facility] CLIA [id number] [address] [place] [address] [place] TSH SerPl-aCncon 09-28-2024 TSH Qn 1.190 m[IU]/L Normal 0.270-4.200 [facility] Comment on above: Order Comment: Speci men Type: BLOOD SPECIMEN [facility] Address: [address] [place] [address] Performed By: #### 5 7021-8 #### [facility] CLIA [id number] [address] [place] [address] [place] Vit B12 SerPl-mCncon 024 Cobalamin (Vitamin B12) [Mass/Vol] 400 pg/mL Normal 232-1245 [facility] Comment on above: Order Comment: Speci men Type: BLOOD SPECIMEN [facility] Address: [address] [place] [address] Performed By: #### 5 7021-8 #### [facility] CLIA [id number] [address] [place] [address] [place] CBC W Auto Differential pane l (Bld)on 07-30-2024 Basophils (Bld) [#/Vol] 0.04 10*3/uL Normal <0.11 [facility] Comment on above: Order Comment: Speci men Type: BLOOD SPECIMENOrdering Facility: [facility] Address: [address] [place] [address] Performed By: #### 5 7021-8 ####[facility] HOSPITALLIA [id number] [place] [address] [place] Basophils/100 WBC (Bld) 0.5 % Normal [facility] Comment on above: Order Comment: Speci men Type: BLOOD SPECIMENOrdering Facility: [facility] Address: [address] [place] [address] Performed By: #### 5 7021-8 ####[facility] B[facility]LEVARDA [id number] [place] [address] [place] Differential cell count method Nom (Bld) Auto Normal [facility] Comment on above: Order Comment: Speci men Type: BLOOD SPECIMENOrdering Facility: [facility] Address: [address] [place] [address] Performed By: #### 5 7021-8 ####[facility] H[facility]ITALLIA [id number] [place] [address] [place] Eosinophils (Bld) [#/Vol] 0.05 10*3/uL Normal <0.46 [facility] Comment on above: Order Comment: Speci men Type: BLOOD SPECIMENOrdering Facility: [facility] Address: [address] [place] [address] Performed By: #### 5 7021-8 ####[facility] LORENZA CAROL [id number] [place] [address] [place] Eosinophils/100 WBC (Bld) 0.6 % Normal [facility] Comment on above: Order Comment: Speci men Type: BLOOD SPECIMENOrdering Facility: [facility] Address: [address] [place] [address] Performed By: #### 5 7021-8 ####[facility] DODIENCLAKEISHAMarybel [id number] [place] [address] [place] Erythrocyte distribution width (RBC) [Ratio] 11.6 % Normal 11.5-15.0 [facility] Comment on above: Order Comment: Speci men Type: BLOOD SPECIMENOrdering Facility: [facility] Address: [address] [place] [address] Performed By: #### 5 7021-8 ####[facility] ANGELOAK RIDGENCLAKEISHAMarybel [id number] [place] [address] [place] Hematocrit (Bld) [Volume fraction] 42.5 % Normal 39.0-51.0 [facility] Comment on above: Order Comment: Speci men Type: BLOOD SPECIMENOrdering Facility: [facility] Address: [address] [place] [address] Performed By: #### 5 7021-8 ####[facility] ANGELOAK RIDGECATELIA [id number] [place] [address] [place] Hemoglobin (Bld) [Mass/Vol] 14.6 g/dL Normal 13.0-17.0 [facility] Comment on above: Order Comment: Speci men Type: BLOOD SPECIMENOrdering Facility: [facility] Address: [address] [place] [address] Performed By: #### 5 7021-8 ####[facility] MILLWNCLIA [id number] [place] [address] [place] Immature granulocytes (Bld) [#/Vol] 10*3/uL Normal <0.10 [facility] Comment on above: Order Comment: Speci men Type: BLOOD SPECIMENOrdering Facility: [facility] Address: [address] [place] [address] Performed By: #### 5 7021-8 ####[facility]ALLIA [id number] [place] [address] [place] Immature granulocytes/100 WBC (Bld) 0.2 % Normal [facility] Comment on above: Order Comment: Speci men Type: BLOOD SPECIMENOrdering Facility: [facility] Address: [address] [place] [address] Performed By: #### 5 7021-8 ####[facility]ALLIA [id number] [place] [address] [place] Lymphocytes (Bld) [#/Vol] 1.60 10*3/uL Normal 1.00-4.00 [facility] Comment on above: Order Comment: Speci men Type: BLOOD SPECIMENOrdering Facility: [facility] Address: [address] [place] [address] Performed By: #### 5 7021-8 ####[facility]ALLIA [id number] [place] [address] [place] Lymphocytes/100 WBC (Bld) 18.6 % Normal [facility] Comment on above: Order Comment: Speci men Type: BLOOD SPECIMENOrdering Facility: [facility] Address: [address] [place] [address] Performed By: #### 5 7021-8 ####[facility]ALLIA [id number] [place] [address] [place] MCH (RBC) [Entitic mass] 29.6 pg Normal 26.0-34.0 [facility] Comment on above: Order Comment: Speci men Type: BLOOD SPECIMENOrdering Facility: [facility] Address: [address] [place] [address] Performed By: #### 5 7021-8 ####[facility]ENCYNCUINTA[facility] [id number] [place] [address] [place] MCHC (RBC) [Mass/Vol] 34.4 g/dL Normal 30.5-36.0 [facility] Comment on above: Order Comment: Speci men Type: BLOOD SPECIMENOrdering Facility: [facility] Address: [address] [place] [address] Performed By: #### 5 7021-8 ####[facility]YNCUINTA[facility] [id number] [place] [address] [place] MCV (RBC) [Entitic vol] 86.2 fL Normal 80.0-100.0 [facility] Comment on above: Order Comment: Speci men Type: BLOOD SPECIMENOrdering Facility: [facility] Address: [address] [place] [address] Performed By: #### 5 7021-8 ####[facility]ENCYNCUINTA[facility] [id number] [place] [address] [place] Monocytes (Bld) [#/Vol] 0.45 10*3/uL Normal <0.87 [facility] Comment on above: Order Comment: Speci men Type: BLOOD SPECIMENOrdering Facility: [facility] Address: [address] [place] [address] Performed By: #### 5 7021-8 ####[facility] EMERGENCYNCLI [id number] [place] [address] [place] Monocytes/100 WBC (Bld) 5.2 % Normal [facility] Comment on above: Order Comment: Speci men Type: BLOOD SPECIMENOrdering Facility: [facility] Address: [address] [place] [address] Performed By: #### 5 7021-8 ####[facility] EMERGENCYCATELIA [id number] [place] [address] [place] Neutrophils (Bld) [#/Vol] 6.46 10*3/uL Normal 1.45-7.50 [facility] Comment on above: Order Comment: Speci men Type: BLOOD SPECIMENOrdering Facility: [facility] Address: [address] [place] [address] Performed By: #### 5 7021-8 ####[facility] BOULEVARDA [id number] [place] [address] [place] Neutrophils/100 WBC (Bld) 74.9 % Normal [facility] Comment on above: Order Comment: Speci men Type: BLOOD SPECIMENOrdering Facility: [facility] Address: [address] [place] [address] Performed By: #### 5 7021-8 ####[facility]ARDA [id number] [place] [address] [place] Nucleated RBC (Bld) [#/Vol] 10*3/uL Normal <0.01 [facility] Comment on above: Order Comment: Speci men Type: BLOOD SPECIMENOrdering Facility: [facility] Address: [address] [place] [address] Performed By: #### 5 7021-8 ####[facility]ALLIA [id number] [place] [address] [place] Nucleated RBC/100 WBC (Bld) [Ratio] 0.0 /100 WBC Normal [facility] Comment on above: Order Comment: Speci men Type: BLOOD SPECIMENOrdering Facility: [facility] Address: [address] [place] [address] Performed By: #### 5 7021-8 ####[facility] LIVIAWNCLIA [id number] [place] [address] [place] Platelet mean volume (Bld) [Entitic vol] 10.4 fL Normal 9.0-12.7 [facility] Comment on above: Order Comment: Speci men Type: BLOOD SPECIMENOrdering Facility: [facility] Address: [address] [place] [address] Performed By: #### 5 7021-8 ####[facility] ANGELOAK RIDGECATELIA [id number] [place] [address] [place] Platelets (Bld) [#/Vol] 214 10*3/uL Normal 150-400 [facility] Comment on above: Order Comment: Speci men Type: BLOOD SPECIMENOrdering Facility: [facility] Address: [address] [place] [address] Performed By: #### 5 7021-8 ####[facility] EMERGENCYNCLIA [id number] [place] [address] [place] RBC (Bld) [#/Vol] 4.93 10*6/uL Normal 4.20-6.00 [facility] Comment on above: Order Comment: Speci men Type: BLOOD SPECIMENOrdering Facility: [facility] Address: [address] [place] [address] Performed By: #### 5 7021-8 ####[facility] EM[facility]GENCYNCLIA [id number] [place] [address] [place] WBC (Bld) [#/Vol] 8.62 10*3/uL Normal 3.70-11.00 [facility] Comment on above: Order Comment: Speci men Type: BLOOD SPECIMENOrdering Facility: [facility] Address: [address] [place] [address] Performed By: #### 5 7021-8 ####[facility] EMERGENCYNCLIA [id number] [place] [id number] [place] [address] OF [facility] Rangel 07-30-2024 CEE Telephone (HEMAWS) ZANE BUITRAGO ([id number]) 2 M Date Time Provider Department 07/30/24 KILLIAN ELAMAWS During your visit today, we recorded the following information about you: Jenny Hurley LPN 07/30/2024 4:05 PM Signed Spoke with pt concerning free drug thru [employer] for his Promacta. He stated he hed filled everything out that he needed to ans sent to Retail Department Supervisor. Spoke with ornamental metal worker, she stated pt. Has not gotten one of the forms completed and returned. Pt. Informed he needed to contact [employer] @ [phone] and request a No Income Atestation form , once received he needs to complete and get to social media content manager. Since he is not a minor, he needs to do this, he can't have his mom do it. Once all forms are completed, can then possibly get free Promacta. Jenny Hurley LPN Allergies As of Date: 07/30/2024 (No Known Allergies) Date Reviewed: 07/07/2024 Reviewed by: Carlene Reed LPN - Fully Assessed Reason for Visit: promacta Medication [Other] Prescriptions as of 08/04/2024 - ondansetron (ZOFRAN) 4 mg tablet Take 4 mg by mouth every 8 hours as needed for nausea/vomiting. - sertraline (ZOLOFT) 50 mg tablet Take 1 tablet by mouth once daily. - predniSONE (DELTASONE) 5 mg tablet Take 1 tablet by mouth once daily. - eltrombopag olamine (PROMACTA) 50 mg tablet Take 1 tablet (50 mg) by mouth once daily. Administer on an empty stomach, 1 hour before or 2 hours after a meal. Problem List As Of Date 07/30/2024 Noted Resolved Pityriasis rosea [L42] 01/17/2016 Acute ITP (HCC) [D69.3] 06/25/2023 Chronic ITP (idiopathic thrombocytopenia) (HCC)*09/24/2023 Encounter Status:Closed by JENNY HURLEY on 08/04/24 [facility] Telephone (HEMAWS) ZANE BUITRAGO ([id number]) 2 M Date Time Provider Department 07/30/24 KILLIAN ELAM HEMAWS During your visit today, we recorded the following information about you: Jenny Hurley LPN 07/30/2024 2:31 PM Signed Pt. Had labs done today, informed he does not need transfusion. Questions when he should have next lab draw? He currently taking no medications . NoNever received any Promacta, ran out of prednisone about a month ago. Jenny Hurley LPN Allergies As of Date: 07/30/2024 (No Known Allergies) Date Reviewed: 07/07/2024 Reviewed by: Carlene Reed LPN - Fully Assessed Prescriptions as of 08/04/2024 - ondansetron (ZOFRAN) 4 mg tablet Take 4 mg by mouth every 8 hours as needed for nausea/vomiting. - sertraline (ZOLOFT) 50 mg tablet Take 1 tablet by mouth once daily. - predniSONE (DELTASONE) 5 mg tablet Take 1 tablet by mouth once daily. - eltrombopag olamine (PROMACTA) 50 mg tablet Take 1 tablet (50 mg) by mouth once daily. Administer on an empty stomach, 1 hour before or 2 hours after a meal. Problem List As Of Date 07/30/2024 Noted Resolved Pityriasis rosea [L42] 01/17/2016 Acute ITP (HCC) [D69.3] 06/25/2023 Chronic ITP (idiopathic thrombocytopenia) (HCC)*09/24/2023 Encounter Status:Closed by JENNY HURLEY on 08/04/24 Normal [facility] CNOVon 07-07-2024 CNOV Office Visit (FAMPWS ) ZANE BUITRAGO ([id number]) 2 M Date Time Provider Department 07/07/24 5:40 PM MARIUSZ ALLEN FAMPWS During your visit today, we recorded the following information about you: Pulse Respiration Blood pressure Weight 83/minute 16/minute 110/62 79.7 kg Height 1.728 m Mariusz Allen MD 07/07/2024 6:39 PM Signed Chief Complaint Patient presents with: Establish Care HPI Zane Buitrago is a 24 year old male who presents here today for Above Complaints. Patient's last PCP was Dr. Gongora in pediatrics with last OV more than 5 years ago. No questions or concerns. Patient is following up with Dr. Elam's office for history of chronic ITP diagnosed in 2022. He is on prednisone now along with monthly Rituxan infusions and is working on getting approval from insurance to start Promacta. Reviewed recent CBC. Denies bleeding or bruising symptoms today. Patient notes that over the last 3 weeks has been feeling more anxious and depressed related to some relationship issues with his girlfriend. Denies SI/HI, panic symptoms. Feels safe going home. Would like to try medication and counseling. LEVON-7 07/05/2024 LEVON-7 All Questions Feeling nervous, anxious, or on edge Several days Not being able to stop or control worrying Several days Worrying too much about different things Several days Trouble relaxing More than half the days Being so restless that it is hard to sit still Nearly Everyday Becoming easily annoyed or irritable Nearly Everyday Feeling afraid, as if something awful might happen Not at all LEVON-7 Score 11 Details PHQ-9 07/05/2024 PHQ-9 Scores Little interest or pleasure in doing things Several days Feeling down, depressed, or hopeless Several days Trouble falling or staying asleep, or sleeping too much Several days Feeling tired or having little energy Nearly every day Poor appetite or overeating Nearly every day Feeling bad about yourself - or that you are a failure or have let yourself or your family down Nearly every day Trouble concentrating on things, such as reading the newspaper or watching television Not at all Moving or speaking so slowly that other people could have noticed. Or the opposite - being so fidgety or restless that you have been moving around a lot more than usual Not at all Thoughts that you would be better off , or of hurting yourself in some way Not at all PHQ-9 Score 12 Details Refusing vaccinations today. Past medical history, appointments, medications, allergies reviewed. Previous Medical History PAST MEDICAL HISTORY Diagnosis Date Acute ITP (HCC) 06/25/2023 Chronic ITP (idiopathic thrombocytopenia) ([facility]) 09/24/2023 Dr. Elam Marijuana use NEGATIVE HISTORY OF 05/19/2012 normal color vision Previous Surgical History PAST SURGICAL HISTORY Procedure Laterality Date NONE Family History FAMILY HISTORY Problem Relation Age of Onset None Mother None Father No Known Problems Sister No Known Problems Sister No Known Problems Brother No Known Problems Brother Leukemia Brother No Known Problems Maternal Grandmother Lung Cancer Maternal Grandfather other (cancer throat) Maternal Grandfather No Known Problems Paternal Grandmother No Known Problems Paternal Grandfather Patient Allergies ALLERGIES No Known Allergies Current Medications Current Outpatient Medications on File Prior to Visit Medication Sig ondansetron (ZOFRAN) 4 mg tablet Take 4 mg by mouth every 8 hours as needed for nausea/vomiting. predniSONE (DELTASONE) 5 mg tablet Take 1 tablet by mouth once daily. predniSONE (DELTASONE) 20 mg tablet Take 20 mg by mouth once daily. eltrombopag olamine (PROMACTA) 50 mg tablet Take 1 tablet (50 mg) by mouth once daily. Administer on an empty stomach, 1 hour before or 2 hours after a meal. (Patient not taking: Reported on 02/14/2024) No current facility-administered medications on file prior to visit. Social History Social History Tobacco Use Smoking status: Never Smokeless tobacco: Never Vaping Use Vaping status: Never Used Substance Use Topics Alcohol use: Not Currently Drug use: Never Review of Symptoms REVIEW OF SYSTEMS GENERAL: No weight loss, malaise or fevers HEENT: Negative for frequent or significant headaches, No changes in hearing or vision, no nose bleeds or other nasal problems NECK: Negative for lumps, goiter, pain and significant neck swelling RESPIRATORY: Negative for cough, hemoptysis, wheezing, COPD, dyspnea or shortness of breath CARDIOVASCULAR: Negative for chest pain, leg swelling, hypertension, CHF or palpitations GI: No nausea, vomiting, or diarrhea : No history of dysuria, frequency or incontinence MUSCULOSKELETAL: Negative for joint pain or swelling, back pain or muscle pain SKIN: Rash on left shoulder in the last f (more content not included)... Normal [facility] Discharge Instructionon 06-15 Discharge Instruction [facility] Medical Records Department [address] [place] [address] Instructions for Home/Discharge Instructions 07/03/24 1154 MR#: [id number] Acct: [id number] Name: ZANE BUITRAGO Rep #: [id number] : 2000 24 From: Suresh Oneill DO PCP: Care Physician,No Primary Status:ADM IN Discharge Instructions Diet Discharge Diet: No restrictions Activity Discharge Activity: No Restrictions Follow Up Care Test Results: Test results from this visit will be discussed in further detail at your follow-up appointment, if applicable. Discharge Plan Admission Admit Date/Time: 07/01/24 12:20 Primary Reason for Your Visit: Opiate withdrawal Attending Provider: Suresh Oneill Primary Care Provider: Care Physician,No Primary Instructions Additional Instructions / Restrictions: Please follow-up at either 180 or Day this coming week to discuss when you can start receiving Vivitrol injections to help with cravings for opiates. Discharge Orders/Prescriptions Prescriptions: Discontinued prednisone 5 mg tablet 5 mg PO DAILY Referrals / Follow Up: Care Physician,No Primary [Primary Care Provider] - Disposition Disposition (needs filled in before D/C Order can be placed): Home, Self Care 07/03/24 1156 Suresh Oneill DO CC: No Primary Care Physician Signed [facility] Alcohol, Blood (Medical)-Ser umon 07-01-2024 SERUM ETOH 4.0 mg/dL [facility] Comment on above: Result Comment: The serum:whole blood ethanol ratio is approximately 1.14 and varies slightly with hematocrit. Medical Alcohol reference interval and critical value in non-tolerant individuals; 50 - 100 Impairment 100 Intoxication 100 - 250 Severe Poisoning 250 - 400 Deep/possible fatal coma Performed By: #### M 100.678, M100.677 #### [facility] [address] [place], [address] CBC W/Diff, Automatedon 06-14 Absolute Lymph 1.16 X10 3/uL Normal 0.83-4.51 [facility] Comment on above: Performed By: #### L 100.0100, L500.4050 #### [facility] [address] [place], [address] Absolute Neut 7.2 X10 3/uL Normal 2.0-7.7 [facility] Comment on above: Performed By: #### L 100.0100, L500.4050 #### [facility] [address] [place], [address] Basophils/100 WBC (Bld) 0.2 % Normal 0-1 [facility] [place] [facility] Comment on above: Performed By: #### L 100.0100, L500.4050 #### [facility] [address] [place], [address] Eosinophils/100 WBC (Bld) 0.3 % Normal 0-5 [facility] Comment on above: Performed By: #### L 100.0100, L500.4050 #### [facility] [address] [place], [address] Erythrocyte distribution width (RBC) [Ratio] 11.1 % Low 11.6-14.6 [facility] Comment on above: Performed By: #### L 100.0100, L500.4050 #### [facility] [address] [place], [address] Hematocrit (Bld) [Volume fraction] 43.0 % Normal 40-54 [facility] Comment on above: Performed By: #### L 100.0100, L500.4050 #### [facility] [address] [place], [address] Hemoglobin (Bld) [Mass/Vol] 14.5 g/dL Normal 13.0-16.5 [facility] Comment on above: Performed By: #### L 100.0100, L500.4050 #### [facility] [address] [place], [address] IG% 0.400 Normal 0.0-0.9 [facility] Comment on above: Result Comment: IG% - Immature Granulocytes (promyelocytes, myelocytes and metamyelocytes) > 1% indicates that a LEFT SHIFT is Present. Performed By: #### L 100.0100, L500.4050 #### [facility] [address] [place], [address] Lymphocytes/100 WBC (Bld) 13.0 % Low 19-41 [facility] Comment on above: Performed By: #### L 100.0100, L500.4050 #### [facility] [address] [place], [address] MCH (RBC) [Entitic mass] 29.9 pg Normal 27.0-32.0 [facility] Comment on above: Performed By: #### L 100.0100, L500.4050 #### [facility] [address] [place], [address] MCHC (RBC) [Mass/Vol] 33.7 g/dL Normal 32-36 [facility] Comment on above: Performed By: #### L 100.0100, L500.4050 #### [facility] [address] [place], [address] MCV (RBC) [Entitic vol] 88.7 fL Normal 80-94 [facility] [place] [facility] Comment on above: Performed By: #### L 100.0100, L500.4050 #### [facility] [address] [place], [address] Monocytes/100 WBC (Bld) 5.5 % Normal 0-10 [facility] Comment on above: Performed By: #### L 100.0100, L500.4050 #### [facility] [address] [place], [address] Neutrophils/100 WBC (Bld) 80.6 % High 47-70 [facility] Comment on above: Performed By: #### L 100.0100, L500.4050 #### [facility] [address] [place], [address] Nucleated RBC (Bld) [#/Vol] 0 10*3/uL Normal 0-5 [facility] Comment on above: Performed By: #### L 100.0100, L500.4050 #### [facility] [address] [place], [address] Platelet mean volume (Bld) [Entitic vol] 11.1 fL Normal 6.2-12.0 [facility] Comment on above: Performed By: #### L 100.0100, L500.4050 #### [facility] [address] [place], [address] Platelets (Bld) [#/Vol] 165 10*3/uL Normal 150-450 [facility] Comment on above: Performed By: #### L 100.0100, L500.4050 #### [facility] [address] [place], [address] RBC (Bld) [#/Vol] 4.85 10*6/uL Normal 4.6-6.2 [facility] Comment on above: Performed By: #### L 100.0100, L500.4050 #### [facility] [address] [place], [address] RDW SD 35.9 fl Normal 35.1-43.9 [facility] Comment on above: Performed By: #### L 100.0100, L500.4050 #### [facility] [address] [place], [address] WBC (Bld) [#/Vol] 9.0 10*3/uL Normal 4.4-11.0 [facility] Comment on above: Performed By: #### L 100.0100, L500.4050 #### [facility] [address] [place], [address] Comprehensive Metabolic Prof ilon 07-01-2024 ALB Normal 3.2-5.0 [facility] Comment on above: Result Comment: Canc elled via OM: MD Ordered Performed By: #### L 100.0100, L500.4050 #### [facility] [address] [place], [address] ALK P Normal 45-117 [facility] Comment on above: Result Comment: Canc elled via OM: MD Ordered Performed By: #### L 100.0100, L500.4050 #### [facility] [address] [place], [address] ALT Normal 16-61 [facility] Comment on above: Result Comment: Canc elled via OM: MD Ordered Performed By: #### L 100.0100, L500.4050 #### [facility] [address] [place], [address] AST Normal 15-37 [facility] Comment on above: Result Comment: Canc elled via OM: MD Ordered Performed By: #### L 100.0100, L500.4050 #### [facility] [address] [place], [address] BUN Normal 7-18 [facility] Comment on above: Result Comment: Canc elled via OM: MD Ordered Performed By: #### L 100.0100, L500.4050 #### [facility] [address] [place], [address] BUN/CRE Normal 10-20 [facility] Comment on above: Result Comment: Canc elled via OM: MD Ordered Performed By: #### L 100.0100, L500.4050 #### [facility] [address] [place], [address] CA,Total Normal 8.5-10.1 [facility] Comment on above: Result Comment: Canc elled via OM: MD Ordered Performed By: #### L 100.0100, L500.4050 #### [facility] [address] [place], [address] CL Normal 98-107 [facility] Comment on above: Result Comment: Canc elled via OM: MD Ordered Performed By: #### L 100.0100, L500.4050 #### [facility] [address] [place], [address] CO2 Normal 21.0-32.0 [facility] Comment on above: Result Comment: Canc elled via OM: MD Ordered Performed By: #### L 100.0100, L500.4050 #### [facility] [address] [place], [address] CREAT,SERUM Normal 0.70-1.30 [facility] Comment on above: Result Comment: Canc elled via OM: MD Ordered Performed By: #### L 100.0100, L500.4050 #### [facility] [address] [place], [address] EST GFR Normal >60 [facility] Comment on above: Result Comment: Canc elled via OM: MD Ordered Performed By: #### L 100.0100, L500.4050 #### [facility] [address] [place], [address] EST GFR - AA Normal >60 [facility] Comment on above: Result Comment: Canc elled via OM: MD Ordered Performed By: #### L 100.0100, L500.4050 #### [facility] [address] [place], [address] GAP Normal 5-15 [facility] Comment on above: Result Comment: Canc elled via OM: MD Ordered Performed By: #### L 100.0100, L500.4050 #### [facility] [address] [place], [address] GLU Normal 74-106 [facility] Comment on above: Result Comment: Canc elled via OM: MD Ordered Performed By: #### L 100.0100, L500.4050 #### [facility] [address] [place], [address] Potassium Normal 3.5-5.1 [facility] Comment on above: Result Comment: Canc elled via OM: MD Ordered Performed By: #### L 100.0100, L500.4050 #### [facility] [address] [place], [address] T BILI Normal 0.20-1.00 [facility] Comment on above: Result Comment: Canc elled via OM: MD Ordered Performed By: #### L 100.0100, L500.4050 #### [facility] [address] [place], [address] T PROT Normal 6.4-8.2 [facility] Comment on above: Result Comment: Canc elled via OM: MD Ordered Performed By: #### L 100.0100, L500.4050 #### [facility] [address] [place], [address] Comprehensive Metabolic Profil Normal 136-145 [facility] Comment on above: Result Comment: Canc elled via OM: Ordered Performed By: #### L 100.0100, L500.4050 #### [facility] [address] [place], [address] Albumin [Mass/Vol] 4.0 g/dL Normal 3.2-5.0 [facility] Comment on above: Performed By: #### M 100.678, M100.677 #### [facility] [address] [place], [address] Albumin/Globulin [Mass ratio] 1.2 {ratio} Normal 0.9-2.4 [facility] Comment on above: Performed By: #### M 100.678, M1.7 #### [facility] [address] [place], [address] ALK P 49 U/L Normal 45-117 [facility] Comment on above: Performed By: #### M 100.678, M1.7 #### [facility] [address] [place], [address] ALT [Catalytic activity/Vol] 17 U/L Normal 16-61 [facility] Comment on above: Performed By: #### M 100.678, M1.7 #### [facility] [address] [place], [address] AST [Catalytic activity/Vol] 11 U/L Low 15-37 [facility] Comment on above: Performed By: #### M 100.678, M1.677 #### [facility] [address] [place], [address] Bilirubin [Mass/Vol] 0.60 mg/dL Normal 0.20-1.00 [facility] Comment on above: Result Comment: For patients on eltrombopag therapy, use of Dimension [place] TBIL is not recommended. Performed By: #### M 100.678, M1.7 #### [facility] [address] [place], [address] BUN/CRE 10.4 RATIO Normal 10-20 [facility] Comment on above: Performed By: #### M 100.678, .7 #### [facility] [address] [place], [address] CA,Total 9.3 mg/dL Normal 8.5-10.1 [facility] Comment on above: Performed By: #### M 100.678, #### [facility] [address] [place], [address] Chloride [Moles/Vol] 104 mmol/L Normal 98-107 [facility] Comment on above: Performed By: #### M 100.678, #### [facility] [address] [place], [address] CO2 [Moles/Vol] 28.0 mmol/L Normal 21.0-32.0 [facility] Comment on above: Performed By: #### M 100.678, #### [facility] [address] [place], [address] Creatinine [Mass/Vol] 0.96 mg/dL Normal 0.70-1.30 [facility] Comment on above: Result Comment: The validity of the calculated GFR GFRAA in patients over 70 years has not been determined. Clinical correlation is essential. Performed By: #### M 100.678, 7 #### [facility] [address] [place], [address] ECRCL 119.67 ml/min Normal [facility] Comment on above: Performed By: #### M 100.678, 7 #### [facility] [address] [place], [address] EST GFR - AA 125 mL/min Normal >60 [facility] Comment on above: Result Comment: Afri can [place] GFR Calc Performed By: #### M 100.678, #### [facility] [address] [place], [address] GAP 4 Low 5-15 [facility] Comment on above: Performed By: #### M 100.678, #### [facility] [address] [place], [address] GFR/1.73 sq M.predicted among non-blacks MDRD (S/P/Bld) [Vol rate/Area] 103 mL/min/{1.73_m2} Normal >60 [facility] Comment on above: Result Comment: Non- GFR Calc Performed By: #### M 100.678, #### [facility] [address] [place], [address] Globulin (S) [Mass/Vol] 3.3 g/dL Normal 2.2-4.2 [facility] Comment on above: Performed By: #### M 100.678, #### [facility] [address] [place], [address] Glucose [Mass/Vol] 127 mg/dL High 74-106 [facility] Comment on above: Result Comment: Fast ing Glucose result greater than or equal to 126 mg/dL suggests DIABETES MELLITUS per A.D.A. criteria. Performed By: #### M 100.678, #### [facility] [address] [place], [address] Potassium [Moles/Vol] 3.8 mmol/L Normal 3.5-5.1 [facility] Comment on above: Performed By: #### M 100.678, 7 #### [facility] [address] [place], [address] Sodium [Moles/Vol] 136 mmol/L Normal 136-145 [facility] Comment on above: Performed By: #### M 100.678, M100.677 #### [facility] [address] [place], [address] T PROT 7.3 g/dL Normal 6.4-8.2 [facility] Comment on above: Performed By: #### M 100.678, M100.677 #### [facility] [address] [place], [address] Urea nitrogen [Mass/Vol] 10 mg/dL Normal 7-18 [facility] Comment on above: Performed By: #### M 100.678, M100.677 #### [facility] [address] [place], [address] Emergency Department Summary on 07-01-2024 Emergency Department Summary [facility] Medical Records Department [address] [place] [address] Emergency Department Summary 07/01/24 MR#: [id number] Acct: [id number] Name: ZANE BUITRAGO Rep #: [id number] : 2000 24 From: Ranjit Padilla MD PCP: Care Physician,No Primary Status:REG ER Location: ED HPI History of Present Illness Chief Complaint: Substance Abuse Detail of Chief Complaint: Fentanyl addiction and dependency Informant: patient Onset/Context/Timing Onset: Days and Weeks Context: Sudden Onset Timing: Intermittent Quality: Diarrhea, shakes when he does not use Location: Generalized Current Severity: Mild Maximum Severity: Severe Worsened by: Abstinence Relieved by: Using Associated Symptoms Associated Symptoms: Positive for vomiting*, diarrhea* and tremor; Negative for fever*, rash*, seizure, palpatations, change in mental status, trauma, sex for drugs*, suicidal ideation or homicidal ideation Narrative Narrative: Patient is a 24-year-old male. He was prescribed Percocet when he was diagnosed with ITP. This was for pain management. This was over a year ago. He has been snorting fentanyl 0.5 to 1 g a day for the past 2 months. He has not used in 12 hours. He does complain of tremors. He denies palpitations. He does report diarrhea. He denies IV drug use. He denies tobacco use. He denies alcohol use he denies any other drug use. Prior similar symptoms: Yes Recent Illness/Hospitalizatio n: No PFSH [facility] Medical History Idiopathic thrombocytopenic purpura (ITP) Hypofibrinogenemia Cannabis use disorder Ecchymoses, spontaneous Severe thrombocytopenia Home Medications ???Medication ???Instructions ???Recorded ???Last Taken ???Type oxycodone-acetaminophe n 5 mg-325 1 tab PO Q8H PRN pain 3 days #10 12/06/23 Unknown Rx mg tablet (Percocet) tabs Allergy/AdvReac Type Severity Reaction Status Date / Time No Known Allergies Allergy Verified 07/01/24 10:30 Family History Mother No problems noted. Father No problems noted. Brother Leukemia in remission Surgical History No history of previous surgery Social History household members: none Smoking Status: Never smoker alcohol intake: never substance use type: marijuana ROS ROS ED Constitutional Constitutional ED: Reports chills; Denies fever(s), subjective or sweats Eyes Eyes: Denies blurry vision or change in vision ENT ENT ED: Denies ear pain or rhinorrhea Cardiovascular Cardiovascular: Denies chest pain or palpitations Respiratory/Chest Respiratory/Chest: Denies cough, dyspnea or dyspnea on exertion Gastrointestinal Gastrointestinal: Reports abdominal pain, diarrhea, nausea and vomiting Genitourinary Genitourinary ED: Denies dysuria or urinary frequency Musculoskeletal Musculoskeletal: Reports other Details: Patient presently reports generalized pain. ; Denies arthralgias or myalgias Integumentary Reports rash Neurologic Neurologic: Denies headache(s) or paresthesias Psychiatric Psychiatric: Denies anxiety Hematologic/Lymphatic Hematologic/Lymphatic: Denies easy bleeding or easy bruising EXAM Physical Exam Const Vital Signs: 07/01/24 10:30 07/01/24 11:30 Temperature 98.9 F Temperature Source Oral Pulse Rate 83 58 L Respiratory Rate 18 16 Blood Pressure 114/80 113/68 Blood Pressure Mean 91 83 Pulse Ox 97 98 Oxygen Delivery Method Room Air Room Air Positive well nourished and well developed General Appearance ED: well developed, NAD and pallor HEENT Reports moist mucous membranes HEENT Narrative: Ears normal. Nares patent. Posterior pharynx normal. atraumatic; Negative for tenderness Eyes PERRL and EOMs intact bilaterally General Eye ED: Negative for pale conjunctiva or scleral icterus Neck no lymphadenopathy, supple and no JVD Lymph Lymphatic: no lymphadenopathy noted and lymphadenopathy Chest Wall inspection of chest normal and palpation of chest normal Resp normal respiratory effort and clear to auscultation bilaterally Cardio regular rate, regular rhythm, S1 normal heart sound, S2 normal heart sound and no murmurs GI soft to palpation, non-tender, non-distended and no masses Back/Spine no CVA tenderness Extremity Extremity Narrative: Piloerection. Neuro oriented x3, CN's II-XII intact bilaterally and no sensory deficits noted Neuro Narrative: Nonsustained clonus at the ankles, 3 beats. Patient's reflexes are brisk 3+ throughout and symmetric. Romulus Coma Scale: document GCS findings Spontaneous Obeys Commands Oriented 15 Sensorium / Orientation: alert Speech: speech normal Mo (more content not included)... Normal [facility] H AND P Exam - Hospitaliston 07-01-2024 H&P Exam - Hospitalist [facility] Medical Records Department [address] [place] [address] H P Exam - Hospitalist 07/01/24 1219 MR#: [id number] Acct: [id number] Name: ZANE BUITRAGO Rep #: [id number] : 2000 24 From: Suresh Oneill DO PCP: Care Physician,No Primary Status:ADM IN Location: [facility] [id number] HPI - General General Date of Admission: 07/01/24 Date of Service: 07/01/24 Chief Complaint: Opiate withdrawal HPI Narrative ZANE BUITRAGO, is a 24 M who presented to [facility] ED on 07/01/2024 requesting opiate detoxification. Saw patient at bedside in the ED, mother present. Patient was mildly fatigued appearing and laying in bed but otherwise did not appear to be in acute distress. He did have mild anxiety noted. Patient was prescribed Percocet a little over a year ago for pain management back when he was diagnosed with ITP. Once that ran out he began sorting fentanyl. Has been snorting 0.5 to 1 g of fentanyl daily for the past 2 months. Last fentanyl use was 12 hours prior to this admission. Patient reported some tremors, generalized restlessness and diarrhea in the ED. Denied any other withdrawal symptoms. He does report smoking marijuana occasionally. He otherwise denied alcohol use, tobacco use or any other drug use. Denied any IV drug use. Was given doses of Ativan and Zofran prior to my encounter with him and he noted that his symptoms were moderately improved with this. Has never gone through opiate detoxification before. Will admit for further management. [facility] Medical History (Updated 07/01/24 @ 15:[address] Suresh Oneill, DO) Substance abuse Anxiety Non-smoker Idiopathic thrombocytopenic purpura (ITP) Hypofibrinogenemia Cannabis use disorder Ecchymoses, spontaneous Severe thrombocytopenia Home Medications ???Medication ???Instructions ???Recorded ???Last Taken ???Type prednisone 5 mg tablet 5 mg PO DAILY itp 07/01/24 Unknown History Allergy/AdvReac Type Severity Reaction Status Date / Time No Known Allergies Allergy Verified 07/01/24 10:30 Family History Mother No problems noted. Father No problems noted. Brother Leukemia in remission Surgical History No history of previous surgery Social History household members: none Smoking Status: Never smoker alcohol intake: never substance use type: marijuana ROS Constitutional Constitutional: Denies chills, fatigue, fever(s) or weakness Eyes Eyes: Denies change in vision Cardiovascular Cardiovascular: Denies chest pain Respiratory/Chest Respiratory/Chest: Denies shortness of breath at rest Gastrointestinal Gastrointestinal: Reports diarrhea and nausea; Denies abdominal pain, constipation or vomiting Genitourinary Genitourinary: Denies dysuria Musculoskeletal Musculoskeletal: Reports myalgias; Denies arthralgias Neurologic Neurologic: Denies dizziness, focal weakness or headache(s) Vital Signs Vital Signs Vital Signs: 07/01/24 10:30 07/01/24 11:30 07/01/24 12:00 Temperature 98.9 F Temperature Source Oral Pulse Rate 83 58 L 60 Respiratory Rate 18 16 18 Blood Pressure 114/80 113/68 107/69 Blood Pressure Mean 91 83 81 Pulse Ox 97 98 97 Oxygen Delivery Method Room Air Room Air Room Air Weight Weight: 75.024 kg Body Mass Index (BMI) 24.4 Physical Exam Const alert, oriented x3, no apparent distress and average body habitus Constitutional Narrative: Young male, mildly fatigued appearing and mildly anxious appearing but otherwise laying comfortably in bed, in no acute distress. General Appearance: cooperative and comfortable HEENT normocephalic, head/scalp atraumatic, hearing grossly normal bilaterally, nasal mucous membranes and turbinates normal and moist oral mucous membranes Eyes PERRL, EOMs intact bilaterally and conjunctivae normal Neck full ROM Chest inspection of chest normal Resp normal respiratory effort, normal air movement, no use of accessory muscles and clear to auscultation bilaterally Cardio regular rate, regular rhythm, no murmurs and peripheral pulses 2+ throughout GI normal to inspection, nondistended, normoactive bowel sounds, soft to palpation, non-tender and non- distended Back/Spine normal ROM Extremity normal to inspection, full ROM and no pedal edema Skin no rashes or lesions noted Neuro moves all extremities and no focal motor deficits Speech: speech normal Psych mental status grossly normal Mood Affect: anxious Results Lab / Micro Data 07/01/24 11:01 07/01/24 11:01 Labs: Laboratory Results - last 24 hr 07/01/24 11:01: Sodium 136, Potassium 3.8, Chloride 104, Carbo (more content not included)... Normal [facility] Urine Drug Screen (VISTA)on 07-01-2024 AMPHETAMINES Negative Normal <1000 ng/mL [facility] Comment on above: Performed By: #### M 100.678, M100.677 #### [facility] [address] [place], [address] BARBITIURATES Negative Normal < 200 ng/mL [facility] Comment on above: Performed By: #### M 100.678, M100.7 #### [facility] [address] [place], [address] BENZODIAZIPINE Negative Normal < 200 ng/mL [facility] Comment on above: Performed By: #### M 100.678, M100.677 #### [facility] [address] [place], [address] COCAINE Negative Normal < 300 ng/mL [facility] Comment on above: Performed By: #### M 100.678, M1.7 #### [facility] [address] [place], [address] ECSTACY Negative Normal < 500 ng/mL [facility] Comment on above: Performed By: #### M 100.678, M1.7 #### [facility] [address] [place], [address] METHADONE Negative Normal < 300 ng/mL [facility] Comment on above: Performed By: #### M 100.8, M1.7 #### [facility] [address] [place], [address] OPIATES Positive Abnormal < 300 ng/mL [facility] Comment on above: Performed By: #### M 100.678, M1.7 #### [facility] [address] [place], [address] PCP Negative Normal < 25 ng/mL [facility] Comment on above: Performed By: #### M 100.678, M1.7 #### [facility] [address] [place], [address] THC Positive Abnormal < 50 ng/mL [facility] Comment on above: Performed By: #### M 100.678, M1.7 #### [facility] [address] [place], [address] VISTA UDS PH 7 Normal [facility] Comment on above: Performed By: #### M 100.678, M100.677 #### [facility] [address] [place], [address] Rangel 06-24-2024 CNPN Telephone (GEOVANI) ZANE BUITRAGO ([id number]) 2 M Date Time Provider Department 06/24/24 NEETA ROBERTSON During your visit today, we recorded the following information about you: Neeta Robertson LISW 06/24/2024 10:55 AM Signed Voicemail received from pt's mother stating [employer] is to be sending a fax to office for pt to attest to no-income. No fax received to-date. SW called mother back to inform her nothing has been received. Phone off and no voicemail set up. Unable to leave message. [employer] will not release this form to office directly, only if permission given by pt himself over the phone. SEMAJ attempted to arrange pt connection to [employer] at last treatment, pt declined to do in person, phone number given to mother and pt that date. SEMAJ will await further steps or information from pt or mother. BARBI Shields Allergies As of Date: 06/24/2024 (No Known Allergies) Date Reviewed: 05/25/2024 Reviewed by: Neeta Moreno, AMISH - Fully Assessed Reason for Visit: Promacta Assistance [Other] Prescriptions as of 06/24/2024 - predniSONE (DELTASONE) 5 mg tablet Take 1 tablet by mouth once daily. - predniSONE (DELTASONE) 20 mg tablet Take 20 mg by mouth once daily. - eltrombopag olamine (PROMACTA) 50 mg tablet Take 1 tablet (50 mg) by mouth once daily. Administer on an empty stomach, 1 hour before or 2 hours after a meal. Problem List As Of Date 06/24/2024 Noted Resolved Pityriasis rosea [L42] 01/17/2016 Acute ITP (HCC) [D69.3] 06/25/2023 Chronic ITP (idiopathic thrombocytopenia) (HCC)*09/24/2023 Encounter Status:Closed by NEETA ROBERTSON on 06/24/24 Normal [facility] CBC W Auto Differential pane l (Bld)on 06-19-2024 Basophils (Bld) [#/Vol] 10*3/uL Normal <0.11 [facility] Comment on above: Order Comment: Speci men Type: BLOOD SPECIMENOrdering Facility: [facility] Address: [address] [place] [address] Performed By: #### 5 7021-8 ####[facility] [id number] [place] [address] [place] Basophils/100 WBC (Bld) 0.1 % Normal [facility] Comment on above: Order Comment: Speci men Type: BLOOD SPECIMENOrdering Facility: [facility] Address: [address] [place] [address] Performed By: #### 5 7021-8 ####[facility] BOU[facility]ARDA [id number] [place] [address] [place] Differential cell count method Nom (Bld) Auto Normal [facility] Comment on above: Order Comment: Speci men Type: BLOOD SPECIMENOrdering Facility: [facility] Address: [address] [place] [address] Performed By: #### 5 7021-8 ####[facility] [id number] [place] [address] [place] Eosinophils (Bld) [#/Vol] 10*3/uL Normal <0.46 [facility] Comment on above: Order Comment: Speci men Type: BLOOD SPECIMENOrdering Facility: [facility] Address: [address] [place] [address] Performed By: #### 5 7021-8 ####[facility] MILLSARAWNCLIA [id number] [place] [address] [place] Eosinophils/100 WBC (Bld) 0.0 % Normal [facility] Comment on above: Order Comment: Speci men Type: BLOOD SPECIMENOrdering Facility: [facility] Address: [address] [place] [address] Performed By: #### 5 7021-8 ####[facility] MILLWCATELIA [id number] [place] [address] [place] Erythrocyte distribution width (RBC) [Ratio] 11.3 % Low 11.5-15.0 [facility] Comment on above: Order Comment: Speci men Type: BLOOD SPECIMENOrdering Facility: [facility] Address: [address] [place] [address] Performed By: #### 5 7021-8 ####[facility]ENC[facility]CL[facility] [id number] [place] [address] [place] Hematocrit (Bld) [Volume fraction] 45.4 % Normal 39.0-51.0 [facility] Comment on above: Order Comment: Speci men Type: BLOOD SPECIMENOrdering Facility: [facility] Address: [address] [place] [address] Performed By: #### 5 7021-8 ####[facility] ANGELTOWNCLIA [id number] [place] [address] [place] Hemoglobin (Bld) [Mass/Vol] 15.7 g/dL Normal 13.0-17.0 [facility] Comment on above: Order Comment: Speci men Type: BLOOD SPECIMENOrdering Facility: [facility] Address: [address] [place] [address] Performed By: #### 5 7021-8 ####[facility]ENCYCATELIA [id number] [place] [address] [place] Immature granulocytes (Bld) [#/Vol] 0.04 10*3/uL Normal <0.10 [facility] Comment on above: Order Comment: Speci men Type: BLOOD SPECIMENOrdering Facility: [facility] Address: [address] [place] [address] Performed By: #### 5 7021-8 ####[facility] [id number] [place] [address] [place] Immature granulocytes/100 WBC (Bld) 0.5 % Normal [facility] Comment on above: Order Comment: Speci men Type: BLOOD SPECIMENOrdering Facility: [facility] Address: [address] [place] [address] Performed By: #### 5 7021-8 ####[facility] [id number] [place] [address] [place] Lymphocytes (Bld) [#/Vol] 0.87 10*3/uL Low 1.00-4.00 [facility] Comment on above: Order Comment: Speci men Type: BLOOD SPECIMENOrdering Facility: [facility] Address: [address] [place] [address] Performed By: #### 5 7021-8 ####[facility] HOSPITALLAKEISHA [id number] [place] [address] [place] Lymphocytes/100 WBC (Bld) 10.7 % Normal [facility] Comment on above: Order Comment: Speci men Type: BLOOD SPECIMENOrdering Facility: [facility] Address: [address] [place] [address] Performed By: #### 5 7021-8 ####[facility]ITALL[facility] [id number] [place] [address] [place] MCH (RBC) [Entitic mass] 30.3 pg Normal 26.0-34.0 [facility] Comment on above: Order Comment: Speci men Type: BLOOD SPECIMENOrdering Facility: [facility] Address: [address] [place] [address] Performed By: #### 5 7021-8 ####[facility]YNCUIN[facility] [id number] [place] [address] [place] MCHC (RBC) [Mass/Vol] 34.6 g/dL Normal 30.5-36.0 [facility] Comment on above: Order Comment: Speci men Type: BLOOD SPECIMENOrdering Facility: [facility] Address: [address] [place] [address] Performed By: #### 5 7021-8 ####[facility] [id number] [place] [address] [place] MCV (RBC) [Entitic vol] 87.5 fL Normal 80.0-100.0 [facility] Comment on above: Order Comment: Speci men Type: BLOOD SPECIMENOrdering Facility: [facility] Address: [address] [place] [address] Performed By: #### 5 7021-8 ####[facility] [id number] [place] [address] [place] Monocytes (Bld) [#/Vol] 0.22 10*3/uL Normal <0.87 [facility] Comment on above: Order Comment: Speci men Type: BLOOD SPECIMENOrdering Facility: [facility] Address: [address] [place], [place] [address] Performed By: #### 5 7021-8 ####[facility] [id number] [place] [address] [place] Monocytes/100 WBC (Bld) 2.7 % Normal [facility] Comment on above: Order Comment: Speci men Type: BLOOD SPECIMENOrdering Facility: [facility] Address: [address] [place] [address] Performed By: #### 5 7021-8 ####[facility] MILLTOWNCLIA [id number] [place] [address] [place] Neutrophils (Bld) [#/Vol] 6.97 10*3/uL Normal 1.45-7.50 [facility] Comment on above: Order Comment: Speci men Type: BLOOD SPECIMENOrdering Facility: [facility] Address: [address] [place] [address] Performed By: #### 5 7021-8 ####[facility] MILLWNCLIA [id number] [place] [address] [place] Neutrophils/100 WBC (Bld) 86.0 % Normal [facility] Comment on above: Order Comment: Speci men Type: BLOOD SPECIMENOrdering Facility: [facility] Address: [address] [place] [address] Performed By: #### 5 7021-8 ####[facility]CL[facility] [id number] [place] [address] [place] Nucleated RBC (Bld) [#/Vol] 10*3/uL Normal <0.01 [facility] Comment on above: Order Comment: Speci men Type: BLOOD SPECIMENOrdering Facility: [facility] Address: [address] [place] [address] Performed By: #### 5 7021-8 ####[facility] MILLTOWNCLIA [id number] [place] [address] [place] Nucleated RBC/100 WBC (Bld) [Ratio] 0.0 /100 WBC Normal [facility] Comment on above: Order Comment: Speci men Type: BLOOD SPECIMENOrdering Facility: [facility] Address: [address] [place] [address] Performed By: #### 5 7021-8 ####[facility] MILLOAK RIDGENCLIA [id number] [place] [address] [place] Platelet mean volume (Bld) [Entitic vol] 10.8 fL Normal 9.0-12.7 [facility] Comment on above: Order Comment: Speci men Type: BLOOD SPECIMENOrdering Facility: [facility] Address: [address] [place] [address] Performed By: #### 5 7021-8 ####[facility]YCATEL[facility] [id number] [place] [address] [place] Platelets (Bld) [#/Vol] 213 10*3/uL Normal 150-400 [facility] Comment on above: Order Comment: Speci men Type: BLOOD SPECIMENOrdering Facility: [facility] Address: [address] [place] [address] Performed By: #### 5 7021-8 ####[facility]CL[facility] [id number] [place] [address] [place] RBC (Bld) [#/Vol] 5.19 10*6/uL Normal 4.20-6.00 [facility] Comment on above: Order Comment: Speci men Type: BLOOD SPECIMENOrdering Facility: [facility] Address: [address] [place] [address] Performed By: #### 5 7021-8 ####[facility]CL[facility] [id number] [place] [address] [place] WBC (Bld) [#/Vol] 8.11 10*3/uL Normal 3.70-11.00 [facility] Comment on above: Order Comment: Speci men Type: BLOOD SPECIMENOrdering Facility: [facility] Address: [address] [place] [address] Performed By: #### 5 7021-8 ####[facility]CL[facility] [id number] [place] [address] [place] CNPNon 08-26-2024 CNPN Telephone (HEMAWS) ZANE BUITRAGO ([id number]) 2 M Date Time Provider Department 06/08/24 KILLIAN ELAMITZEL During your visit today, we recorded the following information about you: Allergies As of Date: 06/08/2024 (No Known Allergies) Date Reviewed: 05/25/2024 Reviewed by: Neeta Moreno, RN - Fully Assessed Reason for Visit: Missed Labs [4822] Prescriptions as of 07/20/2024 - ondansetron (ZOFRAN) 4 mg tablet Take 4 mg by mouth every 8 hours as needed for nausea/vomiting. - sertraline (ZOLOFT) 50 mg tablet Take 1 tablet by mouth once daily. - fluconazole (DIFLUCAN) 150 mg tablet Take 2 tablets by mouth one time a week for 14 days. - predniSONE (DELTASONE) 5 mg tablet Take 1 tablet by mouth once daily. - eltrombopag olamine (PROMACTA) 50 mg tablet Take 1 tablet (50 mg) by mouth once daily. Administer on an empty stomach, 1 hour before or 2 hours after a meal. Problem List As Of Date 06/08/2024 Noted Resolved Pityriasis rosea [L42] 01/17/2016 Acute ITP (HCC) [D69.3] 06/25/2023 Chronic ITP (idiopathic thrombocytopenia) (HCC)*09/24/2023 Encounter Status:Closed by JENNY HURLEY on 07/20/24 Normal [facility] CBC W Auto Differential pane l (Bld)on 05-22-2024 Basophils (Bld) [#/Vol] 0.04 10*3/uL Normal <0.11 [facility] Comment on above: Order Comment: Speci men Type: BLOOD SPECIMENOrdering Facility: [facility] Address: [address] [place] [address] Performed By: #### 5 7021-8 ####[facility] ANGELWNCLIA [id number] [place] [address] [place] Basophils/100 WBC (Bld) 0.4 % Normal [facility] Comment on above: Order Comment: Speci men Type: BLOOD SPECIMENOrdering Facility: [facility] Address: [address] [place] [address] Performed By: #### 5 7021-8 ####[facility] [id number] [place] [address] [place] Differential cell count method Nom (Bld) Auto Normal [facility] Comment on above: Order Comment: Speci men Type: BLOOD SPECIMENOrdering Facility: [facility] Address: [address] [place] [address] Performed By: #### 5 7021-8 ####[facility] [id number] [place] [address] [place] Eosinophils (Bld) [#/Vol] 0.07 10*3/uL Normal <0.46 [facility] Comment on above: Order Comment: Speci men Type: BLOOD SPECIMENOrdering Facility: [facility] Address: [address] [place] [address] Performed By: #### 5 7021-8 ####[facility] [id number] [place] [address] [place] Eosinophils/100 WBC (Bld) 0.7 % Normal [facility] [facility] Comment on above: Order Comment: Speci men Type: BLOOD SPECIMENOrdering Facility: [facility] Address: [address] [place] [address] Performed By: #### 5 7021-8 ####[facility] H[facility]PITALL[facility] [id number] [place] [address] [place] Erythrocyte distribution width (RBC) [Ratio] 11.9 % Normal 11.5-15.0 [facility] Comment on above: Order Comment: Speci men Type: BLOOD SPECIMENOrdering Facility: [facility] Address: [address] [place] [address] Performed By: #### 5 7021-8 ####[facility] [id number] [place] [address] [place] Hematocrit (Bld) [Volume fraction] 42.5 % Normal 39.0-51.0 [facility] Comment on above: Order Comment: Speci men Type: BLOOD SPECIMENOrdering Facility: [facility] Address: [address] [place] [address] Performed By: #### 5 7021-8 ####[facility] [id number] [place] [address] [place] Hemoglobin (Bld) [Mass/Vol] 14.7 g/dL Normal 13.0-17.0 [facility] Comment on above: Order Comment: Speci men Type: BLOOD SPECIMENOrdering Facility: [facility] Address: [address] [place] [address] Performed By: #### 5 7021-8 ####[facility] [id number] [place] [address] [place] Immature granulocytes (Bld) [#/Vol] 0.04 10*3/uL Normal <0.10 [facility] Comment on above: Order Comment: Speci men Type: BLOOD SPECIMENOrdering Facility: [facility] Address: [address] [place] [address] Performed By: #### 5 7021-8 ####[facility] [id number] [place] [address] [place] Immature granulocytes/100 WBC (Bld) 0.4 % Normal [facility] Comment on above: Order Comment: Speci men Type: BLOOD SPECIMENOrdering Facility: [facility] Address: [address] [place] [address] Performed By: #### 5 7021-8 ####[facility] ANGELCORYLAKEISHAA [id number] [place] [address] [place] Lymphocytes (Bld) [#/Vol] 2.22 10*3/uL Normal 1.00-4.00 [facility] Comment on above: Order Comment: Speci men Type: BLOOD SPECIMENOrdering Facility: [facility] Address: [address] [place] [address] Performed By: #### 5 7021-8 ####[facility]ENCYANILAA [id number] [place] [address] [place] Lymphocytes/100 WBC (Bld) 22.4 % Normal [facility] Comment on above: Order Comment: Speci men Type: BLOOD SPECIMENOrdering Facility: [facility] Address: [address] [place] [address] Performed By: #### 5 7021-8 ####[facility]YAN[facility] [id number] [place] [address] [place] MCH (RBC) [Entitic mass] 30.9 pg Normal 26.0-34.0 [facility] Comment on above: Order Comment: Speci men Type: BLOOD SPECIMENOrdering Facility: [facility] Address: [address] [place] [address] Performed By: #### 5 7021-8 ####[facility]ENCYNCL[facility] [id number] [place] [address] [place] MCHC (RBC) [Mass/Vol] 34.6 g/dL Normal 30.5-36.0 [facility] Comment on above: Order Comment: Speci men Type: BLOOD SPECIMENOrdering Facility: [facility] Address: [address] [place] [address] Performed By: #### 5 7021-8 ####[facility] MILLWNCLIA [id number] [place] [address] [place] MCV (RBC) [Entitic vol] 89.5 fL Normal 80.0-100.0 [facility] Comment on above: Order Comment: Speci men Type: BLOOD SPECIMENOrdering Facility: [facility] Address: [address] [place] [address] Performed By: #### 5 7021-8 ####[facility]ITALLIA [id number] [place] [address] [place] Monocytes (Bld) [#/Vol] 0.50 10*3/uL Normal <0.87 [facility] Comment on above: Order Comment: Speci men Type: BLOOD SPECIMENOrdering Facility: [facility] Address: [address] [place] [address] Performed By: #### 5 7021-8 ####[facility] [id number] [place] [address] [place] Monocytes/100 WBC (Bld) 5.0 % Normal [facility] Comment on above: Order Comment: Speci men Type: BLOOD SPECIMENOrdering Facility: [facility] Address: [address] [place] [address] Performed By: #### 5 7021-8 ####[facility]ENCYNCL[facility] [id number] [place] [address] [place] Neutrophils (Bld) [#/Vol] 7.05 10*3/uL Normal 1.45-7.50 [facility] Comment on above: Order Comment: Speci men Type: BLOOD SPECIMENOrdering Facility: [facility] Address: [address] [place] [address] Performed By: #### 5 7021-8 ####[facility] [id number] [place] [address] [place] Neutrophils/100 WBC (Bld) 71.1 % Normal [facility] Comment on above: Order Comment: Speci men Type: BLOOD SPECIMENOrdering Facility: [facility] Address: [address] [place] [address] Performed By: #### 5 7021-8 ####[facility] [id number] [place] [address] [place] Nucleated RBC (Bld) [#/Vol] 10*3/uL Normal <0.01 [facility] Comment on above: Order Comment: Speci men Type: BLOOD SPECIMENOrdering Facility: [facility] Address: [address] [place] [address] Performed By: #### 5 7021-8 ####[facility] [id number] [place] [address] [place] Nucleated RBC/100 WBC (Bld) [Ratio] 0.0 /100 WBC Normal [facility] Comment on above: Order Comment: Speci men Type: BLOOD SPECIMENOrdering Facility: [facility] Address: [address] [place] [address] Performed By: #### 5 7021-8 ####[facility] EMERGENCYNCLI [id number] [place] [address] [place] Platelet mean volume (Bld) [Entitic vol] 10.6 fL Normal 9.0-12.7 [facility] Comment on above: Order Comment: Speci men Type: BLOOD SPECIMENOrdering Facility: [facility] Address: [address] [place] [address] Performed By: #### 5 7021-8 ####[facility] EMER[facility]ENCYNCLI [id number] [place] [address] [place] Platelets (Bld) [#/Vol] 194 10*3/uL Normal 150-400 [facility] Comment on above: Order Comment: Speci men Type: BLOOD SPECIMENOrdering Facility: [facility] Address: [address] [place] [address] Performed By: #### 5 7021-8 ####[facility] LORENZA ORTIZWNCLIA [id number] [place] [address] [place] RBC (Bld) [#/Vol] 4.75 10*6/uL Normal 4.20-6.00 [facility] Comment on above: Order Comment: Speci men Type: BLOOD SPECIMENOrdering Facility: [facility] Address: [address] [place] [address] Performed By: #### 5 7021-8 ####[facility]ENCYNCL[facility] [id number] [place] [address] [place] WBC (Bld) [#/Vol] 9.92 10*3/uL Normal 3.70-11.00 [facility] Comment on above: Order Comment: Speci men Type: BLOOD SPECIMENOrdering Facility: [facility] Address: [address] [place] [address] Performed By: #### 5 7021-8 ####[facility] EMERGENCYNCLIA [id number] [place], [place] [id number] [place] [address] [place] Rangel 05-20-2024 [facility] Telephone (GEOVANI) ZANE BUITRAGO ([id number]) 2 M Date Time Provider Department 05/20/24 KILLIAN ELAM During your visit today, we recorded the following information about you: Mary Mendes 05/20/2024 8:59 AM Signed 1st attempt. Called patient to inform below. VM full. Appointment canceled. trans from treatment plan - Debi, Patient is free med that is supplied up front. Will notify when here then schedule infusion please. Could take a week. kristen Deviations from AMB RITUXIMAB 375 - Q28D Deviations riTUXimab 700 mg in NaCl 0.9% 250 mL (RITUXAN) 375 mg/m2, INTRAVENOUS, ONCE Starting when released Total Volume = 250 ml Infuse 50 ml over 30 minutes then 200 ml over 60 minutes. (free med) exp 1000 04/14/24 (room temp) Change Copy Cycle Cycle, Day Cycle 6, Days: 1 User Killian Elam DO 05/17/2024 3:3 Mary Mendes 05/20/2024 4:08 PM Signed Patient called and was informed that we will contact him to schedule rituxan once we receive. Bernadette Barron LPN 05/20/2024 4:25 PM Signed FYI on Rituxan. Kristen says it may take up to a week to receive. ANIRUDH Liang Melissa 05/22/2024 1:52 PM Signed OK to schedule per treatment plan-Kristen. 2 hour spot per Kristen. Scheduled with patient. Allergies As of Date: 05/20/2024 (No Known Allergies) Date Reviewed: 04/09/2024 Reviewed by: Killian Elam DO - Fully Assessed Reason for Visit: Appointment [186] Prescriptions as of 05/22/2024 - predniSONE (DELTASONE) 5 mg tablet Take 1 tablet by mouth once daily. - predniSONE (DELTASONE) 20 mg tablet Take 20 mg by mouth once daily. - eltrombopag olamine (PROMACTA) 50 mg tablet Take 1 tablet (50 mg) by mouth once daily. Administer on an empty stomach, 1 hour before or 2 hours after a meal. Problem List As Of Date 05/20/2024 Noted Resolved Pityriasis rosea [L42] 01/17/2016 Acute ITP (HCC) [D69.3] 06/25/2023 Chronic ITP (idiopathic thrombocytopenia) (HCC)*09/24/2023 Encounter Status:Closed by BERNADETTE BARRON on 05/22/24 [facility] Rangel 05-17-2024 [facility] Telephone (HEMAWS) ZANE BUTIRAGO ([id number]) 2 M Date Time Provider Department 05/17/24 KILLIAN ELAM During your visit today, we recorded the following information about you: Killian Elam DO 05/17/2024 3:38 PM Signed Recent platelet count shows it is starting to slip. Please schedule for rituximab next week. Any word as to where his prescription for Promacta stands? DO Kiana Gonzalez Melanie, LPN 05/18/2024 9:09 AM Signed Patient needs to contact patient assistance and request no-income attestation letter to be faxed to our office so he can sign this. His mother has attempted to do this for him but the patient quality audit representative stated this had to be requested by the patient himself. Patient and patient's mother are both aware of this. ANIRUDH Fenton Paul A, DO 05/18/2024 5:11 PM Signed Thank you. DO Luis Low Pamela S, LPN 05/19/2024 9:58 AM Signed Recent platelet count shows it is starting to slip. Please schedule for rituximab next week. Attempted to contact pt. Mailbox full unable to leave message . Sent my chart message. ANIRUDH Young Pamela S, LPN 05/19/2024 11:02 AM Signed Pt. Read my chart message , please reach out to get pt. Scheduled for rituximab next week. ANIRUDH Young Stephanie 05/19/2024 12:41 PM Signed Spoke with patient, advising the need for infusion. Patient stated to schedule whenever and he would see it on MyChart and be here. Patient scheduled. Amanda Hercules Allergies As of Date: 05/17/2024 (No Known Allergies) Date Reviewed: 04/09/2024 Reviewed by: Killian Elam DO - Fully Assessed Reason for Visit: Results [95] Prescriptions as of 05/19/2024 - predniSONE (DELTASONE) 5 mg tablet Take 1 tablet by mouth once daily. - predniSONE (DELTASONE) 20 mg tablet Take 20 mg by mouth once daily. - eltrombopag olamine (PROMACTA) 50 mg tablet Take 1 tablet (50 mg) by mouth once daily. Administer on an empty stomach, 1 hour before or 2 hours after a meal. Problem List As Of Date 05/17/2024 Noted Resolved Pityriasis rosea [L42] 01/17/2016 Acute ITP (HCC) [D69.3] 06/25/2023 Chronic ITP (idiopathic thrombocytopenia) (HCC)*09/24/2023 Encounter Status:Closed by AMANDA HERCULES on 05/19/24 Normal [facility] CBC W Auto Differential pane l (Bld)on 05-15-2024 Basophils (Bld) [#/Vol] 10*3/uL Normal <0.11 [facility] Comment on above: Order Comment: Speci men Type: BLOOD SPECIMENOrdering Facility: [facility] Address: [address] [place] [address] Performed By: #### 5 7021-8 ####[facility] [id number] [place] [address] [place] Basophils/100 WBC (Bld) 0.4 % Normal [facility] Comment on above: Order Comment: Speci men Type: BLOOD SPECIMENOrdering Facility: [facility] Address: [address] [place] [address] Performed By: #### 5 7021-8 ####[facility] [id number] [place] [address] [place] Differential cell count method Nom (Bld) Auto Normal [facility] Comment on above: Order Comment: Speci men Type: BLOOD SPECIMENOrdering Facility: [facility] Address: [address] [place] [address] Performed By: #### 5 7021-8 ####[facility] MILLWNCLIA [id number] [place] [address] [place] Eosinophils (Bld) [#/Vol] 0.07 10*3/uL Normal <0.46 [facility] Comment on above: Order Comment: Speci men Type: BLOOD SPECIMENOrdering Facility: [facility] Address: [address] [place] [address] Performed By: #### 5 7021-8 ####[facility] EMERGENCYCATELIA [id number] [place] [address] [place] Eosinophils/100 WBC (Bld) 1.4 % Normal [facility] Comment on above: Order Comment: Speci men Type: BLOOD SPECIMENOrdering Facility: [facility] Address: [address] [place] [address] Performed By: #### 5 7021-8 ####[facility] [id number] [address] [place] Erythrocyte distribution width (RBC) [Ratio] 12.1 % Normal 11.5-15.0 [facility] Comment on above: Order Comment: Speci men Type: BLOOD SPECIMENOrdering Facility: [facility] Address: [address] [place] [address] Performed By: #### 5 7021-8 ####[facility] [id number] [place] [address] [place] Hematocrit (Bld) [Volume fraction] 36.9 % Low 39.0-51.0 [facility] Comment on above: Order Comment: Speci men Type: BLOOD SPECIMENOrdering Facility: [facility] Address: [address] [place] [address] Performed By: #### 5 7021-8 ####[facility] EMER[facility]ENCYNCL[facility] [id number] [place] [address] [place] Hemoglobin (Bld) [Mass/Vol] 12.6 g/dL Low 13.0-17.0 [facility] Comment on above: Order Comment: Speci men Type: BLOOD SPECIMENOrdering Facility: [facility] Address: [address] [place] [address] Performed By: #### 5 7021-8 ####[facility] [id number] [place] [address] [place] Immature granulocytes (Bld) [#/Vol] 10*3/uL Normal <0.10 [facility] Comment on above: Order Comment: Speci men Type: BLOOD SPECIMENOrdering Facility: [facility] Address: [address] [place] [address] Performed By: #### 5 7021-8 ####[facility] BOULEVARDA [id number] [address] [place] Immature granulocytes/100 WBC (Bld) 0.4 % Normal [facility] Comment on above: Order Comment: Speci men Type: BLOOD SPECIMENOrdering Facility: [facility] Address: [address] [place] [address] Performed By: #### 5 7021-8 ####[facility] BOULEVARDA [id number] [place] [address] [place] Lymphocytes (Bld) [#/Vol] 2.44 10*3/uL Normal 1.00-4.00 [facility] Comment on above: Order Comment: Speci men Type: BLOOD SPECIMENOrdering Facility: [facility] Address: [address] [place] [address] Performed By: #### 5 7021-8 ####[facility] [id number] [place] [address] [place] Lymphocytes/100 WBC (Bld) 48.7 % Normal [facility] Comment on above: Order Comment: Speci men Type: BLOOD SPECIMENOrdering Facility: [facility] Address: [address] [place] [address] Performed By: #### 5 7021-8 ####[facility] ANGELOAK RIDGEPATRICIA [id number] [place] [address] [place] [facility] MCH (RBC) [Entitic mass] 30.8 pg Normal 26.0-34.0 [facility] Comment on above: Order Comment: Speci men Type: BLOOD SPECIMENOrdering Facility: [facility] Address: [address] [place] [address] Performed By: #### 5 7021-8 ####[facility] [id number] [place] [address] [place] MCHC (RBC) [Mass/Vol] 34.1 g/dL Normal 30.5-36.0 [facility] Comment on above: Order Comment: Speci men Type: BLOOD SPECIMENOrdering Facility: [facility] Address: [address] [place] [address] Performed By: #### 5 7021-8 ####[facility] [id number] [place] [address] [place] MCV (RBC) [Entitic vol] 90.2 fL Normal 80.0-100.0 [facility] Comment on above: Order Comment: Speci men Type: BLOOD SPECIMENOrdering Facility: [facility] Address: [address] [place] [address] Performed By: #### 5 7021-8 ####[facility] [id number] [place] [address] [place] Monocytes (Bld) [#/Vol] 0.32 10*3/uL Normal <0.87 [facility] Comment on above: Order Comment: Speci men Type: BLOOD SPECIMENOrdering Facility: [facility] Address: [address] [place] [address] Performed By: #### 5 7021-8 ####[facility] MILLWNCLIA [id number] [place] [address] [place] Monocytes/100 WBC (Bld) 6.4 % Normal [facility] Comment on above: Order Comment: Speci men Type: BLOOD SPECIMENOrdering Facility: [facility] Address: [address] [place] [address] Performed By: #### 5 7021-8 ####[facility] EM[facility]ENCYNCL[facility] [id number] [place] [address] [place] Neutrophils (Bld) [#/Vol] 2.14 10*3/uL Normal 1.45-7.50 [facility] Comment on above: Order Comment: Speci men Type: BLOOD SPECIMENOrdering Facility: [facility] Address: [address] [place] [address] Performed By: #### 5 7021-8 ####[facility] BOULEVARDA [id number] [place] [address] [place] Neutrophils/100 WBC (Bld) 42.7 % Normal [facility] Comment on above: Order Comment: Speci men Type: BLOOD SPECIMENOrdering Facility: [facility] Address: [address] [place] [address] Performed By: #### 5 7021-8 ####[facility] [id number] [place] [address] [place] Nucleated RBC (Bld) [#/Vol] 10*3/uL Normal <0.01 [facility] Comment on above: Order Comment: Speci men Type: BLOOD SPECIMENOrdering Facility: [facility] Address: [address] [place] [address] Performed By: #### 5 7021-8 ####[facility] EM[facility]ENCYNCL[facility] [id number] [place] [address] [place] Nucleated RBC/100 WBC (Bld) [Ratio] 0.0 /100 WBC Normal [facility] Comment on above: Order Comment: Speci men Type: BLOOD SPECIMENOrdering Facility: [facility] Address: [address] [place] [address] Performed By: #### 5 7021-8 ####[facility]ITALWNCL[facility] [id number] [place] [address] [place] Platelet mean volume (Bld) [Entitic vol] 11.2 fL Normal 9.0-12.7 [facility] Comment on above: Order Comment: Speci men Type: BLOOD SPECIMENOrdering Facility: [facility] Address: [address] [place] [address] Performed By: #### 5 7021-8 ####[facility]NC[facility] [id number] [place] [address] [place] Platelets (Bld) [#/Vol] 142 10*3/uL Low 150-400 [facility] Comment on above: Order Comment: Speci men Type: BLOOD SPECIMENOrdering Facility: [facility] Address: [address] [place] [address] Performed By: #### 5 7021-8 ####[facility] EM[facility]ENCYNCL[facility] [id number] [place] [address] [place] RBC (Bld) [#/Vol] 4.09 10*6/uL Low 4.20-6.00 [facility] Comment on above: Order Comment: Speci men Type: BLOOD SPECIMENOrdering Facility: [facility] Address: [address] [place] [address] Performed By: #### 5 7021-8 ####[facility]CL[facility] [id number] [place] [address] [place] WBC (Bld) [#/Vol] 5.01 10*3/uL Normal 3.70-11.00 [facility] Comment on above: Order Comment: Prince oliveira Type: BLOOD SPECIMENOrdering Facility: [facility] Address: [address] [place] [address] Performed By: #### 5 7021-8 ####[facility] LORENZA MEDINA [id number] [address] [place] CNPAvril 05-14-2024 CNPN Telephone (HEMAWS) ZANE BUITRAGO ([id number]) 2 M Date Time Provider Department 05/14/24 KILLIAN ELAM During your visit today, we recorded the following information about you: Bernadette Barron LPN 05/14/2024 3:42 PM Signed Missed CBC today. Will send YelloYello message. Pt should be weekly CBC possible tx. he does not have anything scheduled until 06/11, will need more scheduled. Mary Mendes 05/14/2024 4:07 PM Signed Qwk labs scheduled thru 06/18. Katherine Walsh LPN 05/15/2024 9:52 AM Signed Please switch lab appointments as requested and notify patient. ANIRUDH Fenton Melissa 05/15/2024 11:43 AM Signed Completed and my chart message sent to patient informing. Allergies As of Date: 05/14/2024 (No Known Allergies) Date Reviewed: 04/09/2024 Reviewed by: Killian Elam DO - Fully Assessed Prescriptions as of 05/15/2024 - predniSONE (DELTASONE) 5 mg tablet Take 1 tablet by mouth once daily. - predniSONE (DELTASONE) 20 mg tablet Take 20 mg by mouth once daily. - eltrombopag olamine (PROMACTA) 50 mg tablet Take 1 tablet (50 mg) by mouth once daily. Administer on an empty stomach, 1 hour before or 2 hours after a meal. Problem List As Of Date 05/14/2024 Noted Resolved Pityriasis rosea [L42] 01/17/2016 Acute ITP (HCC) [D69.3] 06/25/2023 Chronic ITP (idiopathic thrombocytopenia) (HCC)*09/24/2023 Encounter Status:Closed by KATHERINE WALSH on 05/15/24 Normal [facility] CBC W Auto Differential pane l (Bld)on 05-07-2024 Basophils (Bld) [#/Vol] 10*3/uL Normal <0.11 [facility] Comment on above: Order Comment: Speci men Type: BLOOD SPECIMENOrdering Facility: [facility] Address: [address] [place] [address] Performed By: #### 5 7021-8 ####[facility] [id number] [place] [address] [place] Basophils/100 WBC (Bld) 0.1 % Normal [facility] Comment on above: Order Comment: Speci men Type: BLOOD SPECIMENOrdering Facility: [facility] Address: [address] [place] [address] Performed By: #### 5 7021-8 ####[facility] [id number] [place] [address] [place] Differential cell count method Nom (Bld) Auto Normal [facility] Comment on above: Order Comment: Speci men Type: BLOOD SPECIMENOrdering Facility: [facility] Address: [address] [place] [address] Performed By: #### 5 7021-8 ####[facility] [id number] [place] [address] [place] Eosinophils (Bld) [#/Vol] 10*3/uL Normal <0.46 [facility] Comment on above: Order Comment: Speci men Type: BLOOD SPECIMENOrdering Facility: [facility] Address: [address] [place] [address] Performed By: #### 5 7021-8 ####[facility] JACKELINELIA [id number] [place] [address] [place] Eosinophils/100 WBC (Bld) 0.1 % Normal [facility] Comment on above: Order Comment: Speci men Type: BLOOD SPECIMENOrdering Facility: [facility] Address: [address] [place] [address] Performed By: #### 5 7021-8 ####[facility] EMERGENCYCATELIA [id number] [place] [address] [place] Erythrocyte distribution width (RBC) [Ratio] 12.2 % Normal 11.5-15.0 [facility] Comment on above: Order Comment: Speci men Type: BLOOD SPECIMENOrdering Facility: [facility] Address: [address] [place] [address] Performed By: #### 5 7021-8 ####[facility] HOSPITALLIA [id number] [place] [address] [place] Hematocrit (Bld) [Volume fraction] 39.4 % Normal 39.0-51.0 [facility] Comment on above: Order Comment: Speci men Type: BLOOD SPECIMENOrdering Facility: [facility] Address: [address] [place] [address] Performed By: #### 5 7021-8 ####[facility] ANGELOAK RIDGECATELIA [id number] [place] [address] [place] Hemoglobin (Bld) [Mass/Vol] 13.5 g/dL Normal 13.0-17.0 [facility] Comment on above: Order Comment: Speci men Type: BLOOD SPECIMENOrdering Facility: [facility] Address: [address] [place] [address] Performed By: #### 5 7021-8 ####[facility] EMERGENCYNCLIA [id number] [place] [address] [place] Immature granulocytes (Bld) [#/Vol] 0.04 10*3/uL Normal <0.10 [facility] Comment on above: Order Comment: Speci men Type: BLOOD SPECIMENOrdering Facility: [facility] Address: [address] [place] [address] Performed By: #### 5 7021-8 ####[facility] BOULEVARDA [id number] [place] [address] [place] Immature granulocytes/100 WBC (Bld) 0.4 % Normal [facility] Comment on above: Order Comment: Speci men Type: BLOOD SPECIMENOrdering Facility: [facility] Address: [address] [place] [address] Performed By: #### 5 7021-8 ####[facility] EMERGENCYNCLI [id number] [place] [address] [place] Lymphocytes (Bld) [#/Vol] 1.43 10*3/uL Normal 1.00-4.00 [facility] Comment on above: Order Comment: Speci men Type: BLOOD SPECIMENOrdering Facility: [facility] Address: [address] [place] [address] Performed By: #### 5 7021-8 ####[facility] HOSPITALLAKEISHAA [id number] [place] [address] [place] Lymphocytes/100 WBC (Bld) 13.8 % Normal [facility] Comment on above: Order Comment: Speci men Type: BLOOD SPECIMENOrdering Facility: [facility] Address: [address] [place] [address] Performed By: #### 5 7021-8 ####[facility] EMERGENCYNCLI [id number] [place] [address] [place] MCH (RBC) [Entitic mass] 31.0 pg Normal 26.0-34.0 [facility] Comment on above: Order Comment: Speci men Type: BLOOD SPECIMENOrdering Facility: [facility] Address: [address] [place] [address] Performed By: #### 5 7021-8 ####[facility] ANGELWNCLAKEISHAA [id number] [place] [address] [place] MCHC (RBC) [Mass/Vol] 34.3 g/dL Normal 30.5-36.0 [facility] Comment on above: Order Comment: Speci men Type: BLOOD SPECIMENOrdering Facility: [facility] Address: [address] [place] [address] Performed By: #### 5 7021-8 ####[facility] EMERGENCYNCLIA [id number] [place] [address] [place] MCV (RBC) [Entitic vol] 90.4 fL Normal 80.0-100.0 [facility] Comment on above: Order Comment: Speci men Type: BLOOD SPECIMENOrdering Facility: [facility] Address: [address] [place] [address] Performed By: #### 5 7021-8 ####[facility] EMERGENCYNCLIA [id number] [place] [address] [place] Monocytes (Bld) [#/Vol] 0.25 10*3/uL Normal <0.87 [facility] Comment on above: Order Comment: Speci men Type: BLOOD SPECIMENOrdering Facility: [facility] Address: [address] [place] [address] Performed By: #### 5 7021-8 ####[facility] EMERGENCYNCLIA [id number] [address] [place] Monocytes/100 WBC (Bld) 2.4 % Normal [facility] Comment on above: Order Comment: Speci men Type: BLOOD SPECIMENOrdering Facility: [facility] Address: [address] [place] [address] Performed By: #### 5 7021-8 ####[facility] MILLTOWNCLIA [id number] [place] [address] [place] Neutrophils (Bld) [#/Vol] 8.63 10*3/uL High 1.45-7.50 [facility] Comment on above: Order Comment: Speci men Type: BLOOD SPECIMENOrdering Facility: [facility] Address: [address] [place] [address] Performed By: #### 5 7021-8 ####[facility] MILLWNCLIA [id number] [place] [address] [place] Neutrophils/100 WBC (Bld) 83.2 % Normal [facility] Comment on above: Order Comment: Speci men Type: BLOOD SPECIMENOrdering Facility: [facility] Address: [address] [place] [address] Performed By: #### 5 7021-8 ####[facility]PITALLIA [id number] [place] [address] [place] Nucleated RBC (Bld) [#/Vol] 10*3/uL Normal <0.01 [facility] Comment on above: Order Comment: Speci men Type: BLOOD SPECIMENOrdering Facility: [facility] Address: [address] [place] [address] Performed By: #### 5 7021-8 ####[facility] MILLTOWNCLIA [id number] [place] [address] [place] Nucleated RBC/100 WBC (Bld) [Ratio] 0.0 /100 WBC Normal [facility] Comment on above: Order Comment: Speci men Type: BLOOD SPECIMENOrdering Facility: [facility] Address: [address] [place] [address] Performed By: #### 5 7021-8 ####[facility] MILLWNCLIA [id number] [place] [address] [place] Platelet mean volume (Bld) [Entitic vol] 10.8 fL Normal 9.0-12.7 [facility] Comment on above: Order Comment: Speci men Type: BLOOD SPECIMENOrdering Facility: [facility] Address: [address] [place] [address] Performed By: #### 5 7021-8 ####[facility] EMERGENCYCATELAKEISHAA [id number] [place] [address] [place] Platelets (Bld) [#/Vol] 194 10*3/uL Normal 150-400 [facility] Comment on above: Order Comment: Speci men Type: BLOOD SPECIMENOrdering Facility: [facility] Address: [address] [place] [address] Performed By: #### 5 7021-8 ####[facility]ENCYNCUINTA[facility] [id number] [place] [address] [place] RBC (Bld) [#/Vol] 4.36 10*6/uL Normal 4.20-6.00 [facility] Comment on above: Order Comment: Speci men Type: BLOOD SPECIMENOrdering Facility: [facility] Address: [address] [place] [address] Performed By: #### 5 7021-8 ####[facility] EMERGENCYNCLIA [id number] [place] [address] [place] WBC (Bld) [#/Vol] 10.37 10*3/uL Normal 3.70-11.00 [facility] Comment on above: Order Comment: Speci men Type: BLOOD SPECIMENOrdering Facility: [facility] Address: [address] [place] [address] Performed By: #### 5 7021-8 ####[facility] EMERGENCYNCLIA [id number] [place] [address] [place] CBC W Auto Differential pane l (Bld)on 05-01-2024 Basophils (Bld) [#/Vol] 10*3/uL Normal <0.11 [facility] Comment on above: Order Comment: Speci men Type: BLOOD SPECIMEN [facility] Address: [address] [place] [address] Performed By: #### 5 7021-8 #### [facility] CLIA [id number] [address] [place] [address] [place] Basophils/100 WBC (Bld) 0.3 % Normal [facility] Comment on above: Order Comment: Speci men Type: BLOOD SPECIMEN [facility] Address: [address] [place] [address] Performed By: #### 5 7021-8 #### [facility] CLIA [id number] [address] [place] [address] [place] Differential cell count method Nom (Bld) Auto Normal [facility] Comment on above: Order Comment: Speci men Type: BLOOD SPECIMEN [facility] Address: [address] [place] [address] Performed By: #### 5 7021-8 #### [facility] CLIA [id number] [address] [place] [address] [place] Eosinophils (Bld) [#/Vol] 0.04 10*3/uL Normal <0.46 [facility] Comment on above: Order Comment: Speci men Type: BLOOD SPECIMEN [facility] Address: [address] [place] [address] Performed By: #### 5 7021-8 #### [facility] CLIA [id number] [address] [place] [address] [place] Eosinophils/100 WBC (Bld) 0.6 % Normal [facility] Comment on above: Order Comment: Speci men Type: BLOOD SPECIMEN [facility] Address: [address] [place], [place] [id number] Performed By: #### 5 7021-8 #### [facility] CLIA [id number] [address] [place] [address] [place] Erythrocyte distribution width (RBC) [Ratio] 12.0 % Normal 11.5-15.0 [facility] Comment on above: Order Comment: Speci men Type: BLOOD SPECIMEN [facility] Address: [address] [place] [address] Performed By: #### 5 7021-8 #### [facility] CLIA [id number] [address] [place] [address] [place] Hematocrit (Bld) [Volume fraction] 42.9 % Normal 39.0-51.0 [facility] Comment on above: Order Comment: Speci men Type: BLOOD SPECIMEN [facility] Address: [address] [place] [address] Performed By: #### 5 7021-8 #### [facility] CLIA [id number] [address] [place] [address] [place] Hemoglobin (Bld) [Mass/Vol] 15.1 g/dL Normal 13.0-17.0 [facility] Comment on above: Order Comment: Speci men Type: BLOOD SPECIMEN [facility] Address: [address] [place] [address] Performed By: #### 5 7021-8 #### [facility] CLIA [id number] [address] [place] [address] [place] Immature granulocytes (Bld) [#/Vol] 0.03 10*3/uL Normal <0.10 [facility] Comment on above: Order Comment: Speci men Type: BLOOD SPECIMEN [facility] Address: [address] [place] [address] Performed By: #### 5 7021-8 #### [facility] CLIA [id number] [address] [place] [address] [place] Immature granulocytes/100 WBC (Bld) 0.4 % Normal [facility] Comment on above: Order Comment: Speci men Type: BLOOD SPECIMEN [facility] Address: [address] [place] [address] Performed By: #### 5 7021-8 #### [facility] CLIA [id number] [address] [place] [address] [place] Lymphocytes (Bld) [#/Vol] 1.59 10*3/uL Normal 1.00-4.00 [facility] Comment on above: Order Comment: Speci men Type: BLOOD SPECIMEN [facility] Address: [address] [place] [address] Performed By: #### 5 7021-8 #### [facility] CLIA [id number] [address] [place] [address] [place] Lymphocytes/100 WBC (Bld) 23.2 % Normal [facility] Comment on above: Order Comment: Speci men Type: BLOOD SPECIMEN [facility] Address: [address] [place] [address] Performed By: #### 5 7021-8 #### [facility] CLIA [id number] [address] [place] [address] [place] MCH (RBC) [Entitic mass] 30.9 pg Normal 26.0-34.0 [facility] Comment on above: Order Comment: Speci men Type: BLOOD SPECIMEN [facility] Address: [address] [place] [address] Performed By: #### 5 7021-8 #### [facility] CLIA [id number] [address] [place] [address] [place] MCHC (RBC) [Mass/Vol] 35.2 g/dL Normal 30.5-36.0 [facility] Comment on above: Order Comment: Speci men Type: BLOOD SPECIMEN [facility] Address: [address] [place] [address] Performed By: #### 5 7021-8 #### [facility] CLIA [id number] [address] [place] [address] [place] MCV (RBC) [Entitic vol] 87.7 fL Normal 80.0-100.0 [facility] Comment on above: Order Comment: Speci men Type: BLOOD SPECIMEN [facility] Address: [address] [place] [address] Performed By: #### 5 7021-8 #### [facility] CLIA [id number] [address] [place] [address] [place] Monocytes (Bld) [#/Vol] 0.40 10*3/uL Normal <0.87 [facility] Comment on above: Order Comment: Speci men Type: BLOOD SPECIMEN [facility] Address: [address] [place] [address] Performed By: #### 5 7021-8 #### [facility] CLIA [id number] [address] [place] [address] [place] Monocytes/100 WBC (Bld) 5.8 % Normal [facility] Comment on above: Order Comment: Speci men Type: BLOOD SPECIMEN [facility] Address: [address] [place] [address] Performed By: #### 5 7021-8 #### [facility] CLIA [id number] [address] [place] [address] [place] Neutrophils (Bld) [#/Vol] 4.78 10*3/uL Normal 1.45-7.50 [facility] Comment on above: Order Comment: Speci men Type: BLOOD SPECIMEN [facility] Address: [address] [place] [address] Performed By: #### 5 7021-8 #### [facility] CLIA [id number] [address] [place] [address] [place] Neutrophils/100 WBC (Bld) 69.7 % Normal [facility] Comment on above: Order Comment: Speci men Type: BLOOD SPECIMEN [facility] Address: [address] [place] [address] Performed By: #### 5 7021-8 #### [facility] CLIA [id number] [address] [place] [address] [place] Nucleated RBC (Bld) [#/Vol] 10*3/uL Normal <0.01 [facility] Comment on above: Order Comment: Speci men Type: BLOOD SPECIMEN [facility] Address: [address] [place] [address] Performed By: #### 5 7021-8 #### [facility] CLIA [id number] [address] [place] [address] [place] Nucleated RBC/100 WBC (Bld) [Ratio] 0.0 /100 WBC Normal [facility] Comment on above: Order Comment: Speci men Type: BLOOD SPECIMEN [facility] Address: [address] [place] [address] Performed By: #### 5 7021-8 #### [facility] CLIA [id number] [address] [place] [address] [place] Platelet mean volume (Bld) [Entitic vol] 11.1 fL Normal 9.0-12.7 [facility] Comment on above: Order Comment: Speci men Type: BLOOD SPECIMEN [facility] Address: [address] [place] [address] Performed By: #### 5 7021-8 #### [facility] CLIA [id number] [address] [place] [address] [place] Platelets (Bld) [#/Vol] 167 10*3/uL Normal 150-400 [facility] Comment on above: Order Comment: Speci men Type: BLOOD SPECIMEN [facility] Address: [address] [place] [address] Performed By: #### 5 7021-8 #### [facility] CLIA [id number] [address] [place] [address] [place] RBC (Bld) [#/Vol] 4.89 10*6/uL Normal 4.20-6.00 [facility] Comment on above: Order Comment: Speci men Type: BLOOD SPECIMEN [facility] Address: [address] [place] [address] Performed By: #### 5 7021-8 #### [facility] CLIA [id number] [address] [place] [address] [place] WBC (Bld) [#/Vol] 6.86 10*3/uL Normal 3.70-11.00 [facility] Comment on above: Order Comment: Speci men Type: BLOOD SPECIMEN [facility] Address: [address] [place] [address] Performed By: #### 5 7021-8 #### [facility] CLIA [id number] [address] [place] [address] [place] CBC W Auto Differential pane l (Bld)on 04-24-2024 Basophils (Bld) [#/Vol] 0.03 10*3/uL Normal <0.11 [facility] Comment on above: Order Comment: Speci men Type: BLOOD SPECIMENOrdering Facility: [facility] Address: [address] [place] [address] Performed By: #### 5 7021-8 ####[facility] [id number] [place] [address] [place] Basophils/100 WBC (Bld) 0.3 % Normal [facility] Comment on above: Order Comment: Speci men Type: BLOOD SPECIMENOrdering Facility: [facility] Address: [address] [place] [address] Performed By: #### 5 7021-8 ####[facility] ANGELWILMER [id number] [place] [address] [place] Differential cell count method Nom (Bld) Auto Normal [facility] Comment on above: Order Comment: Speci men Type: BLOOD SPECIMENOrdering Facility: [facility] Address: [address] [place] [address] Performed By: #### 5 7021-8 ####[facility]YNCUIN[facility] [id number] [place] [address] [place] Eosinophils (Bld) [#/Vol] 0.05 10*3/uL Normal <0.46 [facility] Comment on above: Order Comment: Speci men Type: BLOOD SPECIMENOrdering Facility: [facility] Address: [address] [place] [address] Performed By: #### 5 7021-8 ####[facility] [id number] [place] [address] [place] Eosinophils/100 WBC (Bld) 0.6 % Normal [facility] Comment on above: Order Comment: Speci men Type: BLOOD SPECIMENOrdering Facility: [facility] Address: [address] [place] [address] Performed By: #### 5 7021-8 ####[facility] [id number] [place] [address] [place] Erythrocyte distribution width (RBC) [Ratio] 12.5 % Normal 11.5-15.0 [facility] Comment on above: Order Comment: Speci men Type: BLOOD SPECIMENOrdering Facility: [facility] Address: [address] [place] [address] Performed By: #### 5 7021-8 ####[facility]CL[facility] [id number] [place] [address] [place] Hematocrit (Bld) [Volume fraction] 46.0 % Normal 39.0-51.0 [facility] Comment on above: Order Comment: Speci men Type: BLOOD SPECIMENOrdering Facility: [facility] Address: [address] [place] [address] Performed By: #### 5 7021-8 ####[facility] [id number] [place] [address] [place] Hemoglobin (Bld) [Mass/Vol] 15.4 g/dL Normal 13.0-17.0 [facility] Comment on above: Order Comment: Speci men Type: BLOOD SPECIMENOrdering Facility: [facility] Address: [address] [place] [address] Performed By: #### 5 7021-8 ####[facility] BOULEVARDA [id number] [place] [address] [place] Immature granulocytes (Bld) [#/Vol] 0.03 10*3/uL Normal <0.10 [facility] Comment on above: Order Comment: Speci men Type: BLOOD SPECIMENOrdering Facility: [facility] Address: [address] [place] [address] Performed By: #### 5 7021-8 ####[facility] [id number] [place] [address] [place] Immature granulocytes/100 WBC (Bld) 0.3 % Normal [facility] Comment on above: Order Comment: Speci men Type: BLOOD SPECIMENOrdering Facility: [facility] Address: [address] [place] [address] Performed By: #### 5 7021-8 ####[facility] EM[facility]ENCYNCLIA [id number] [place] [address] [place] Lymphocytes (Bld) [#/Vol] 2.93 10*3/uL Normal 1.00-4.00 [facility] Comment on above: Order Comment: Speci men Type: BLOOD SPECIMENOrdering Facility: [facility] Address: [address] [place] [address] Performed By: #### 5 7021-8 ####[facility] [id number] [place] [address] [place] Lymphocytes/100 WBC (Bld) 32.8 % Normal [facility] Comment on above: Order Comment: Speci men Type: BLOOD SPECIMENOrdering Facility: [facility] Address: [address] [place] [address] Performed By: #### 5 7021-8 ####[facility]YNCUIN[facility] [id number] [place] [address] [place] MCH (RBC) [Entitic mass] 30.4 pg Normal 26.0-34.0 [facility] Comment on above: Order Comment: Speci men Type: BLOOD SPECIMENOrdering Facility: [facility] Address: [address] [place] [address] Performed By: #### 5 7021-8 ####[facility] [id number] [place] [address] [place] MCHC (RBC) [Mass/Vol] 33.5 g/dL Normal 30.5-36.0 [facility] Comment on above: Order Comment: Speci men Type: BLOOD SPECIMENOrdering Facility: [facility] Address: [address] [place] [address] Performed By: #### 5 7021-8 ####[facility] EMERGENCYNCLI [id number] [place] [address] [place] MCV (RBC) [Entitic vol] 90.7 fL Normal 80.0-100.0 [facility] Comment on above: Order Comment: Speci men Type: BLOOD SPECIMENOrdering Facility: [facility] Address: [address] [place] [address] Performed By: #### 5 7021-8 ####[facility] ANGELWILMER [id number] [place] [address] [place] Monocytes (Bld) [#/Vol] 0.49 10*3/uL Normal <0.87 [facility] Comment on above: Order Comment: Speci men Type: BLOOD SPECIMENOrdering Facility: [facility] Address: [address] [place] [address] Performed By: #### 5 7021-8 ####[facility] [id number] [place] [address] [place] Monocytes/100 WBC (Bld) 5.5 % Normal [facility] Comment on above: Order Comment: Speci men Type: BLOOD SPECIMENOrdering Facility: [facility] Address: [address] [place] [address] Performed By: #### 5 7021-8 ####[facility] [id number] [place] [address] [place] Neutrophils (Bld) [#/Vol] 5.39 10*3/uL Normal 1.45-7.50 [facility] Comment on above: Order Comment: Speci men Type: BLOOD SPECIMENOrdering Facility: [facility] Address: [address] [place] [address] Performed By: #### 5 7021-8 ####[facility] [id number] [place] [address] [place] Neutrophils/100 WBC (Bld) 60.5 % Normal [facility] Comment on above: Order Comment: Speci men Type: BLOOD SPECIMENOrdering Facility: [facility] Address: [address] [place] [address] Performed By: #### 5 7021-8 ####[facility] ANGELCORYLIA [id number] [place] [address] [place] Nucleated RBC (Bld) [#/Vol] 10*3/uL Normal <0.01 [facility] Comment on above: Order Comment: Speci men Type: BLOOD SPECIMENOrdering Facility: [facility] Address: [address] [place] [address] Performed By: #### 5 7021-8 ####[facility] EMERGENCYCATELIA [id number] [place] [address] [place] Nucleated RBC/100 WBC (Bld) [Ratio] 0.0 /100 WBC Normal [facility] Comment on above: Order Comment: Speci men Type: BLOOD SPECIMENOrdering Facility: [facility] Address: [address] [place] [address] Performed By: #### 5 7021-8 ####[facility] BOULEVARDA [id number] [place] [address] [place] Platelet mean volume (Bld) [Entitic vol] 10.4 fL Normal 9.0-12.7 [facility] Comment on above: Order Comment: Speci men Type: BLOOD SPECIMENOrdering Facility: [facility] Address: [address] [place] [address] Performed By: #### 5 7021-8 ####[facility] HOSPITALLIA [id number] [place] [address] [place] Platelets (Bld) [#/Vol] 218 10*3/uL Normal 150-400 [facility] Comment on above: Order Comment: Speci men Type: BLOOD SPECIMENOrdering Facility: [facility] Address: [address] [place] [address] Performed By: #### 5 7021-8 ####[facility] EMERGENCYNCLIA [id number] [address] [place] RBC (Bld) [#/Vol] 5.07 10*6/uL Normal 4.20-6.00 [facility] Comment on above: Order Comment: Speci men Type: BLOOD SPECIMENOrdering Facility: [facility] Address: [address] [place] [address] Performed By: #### 5 7021-8 ####[facility] LORENZA MEDINA [id number] [address] STATES OF [facility] WBC (Bld) [#/Vol] 8.92 10*3/uL Normal 3.70-11.00 [facility] Comment on above: Order Comment: Speci men Type: BLOOD SPECIMENOrdering Facility: [facility] Address: [address] [place] [address] Performed By: #### 5 7021-8 ####[facility] LORENZA DODIENCMARCIAL [id number] [address] OF [facility] CNPNon 04-20-2024 [facility] BUIT[facility]O ([id number]) 2 M Date Time Provider Department 04/20/24 NEETA ROBERTSON During your visit today, we recorded the following information about you: Neeta Robertson LISW 04/20/2024 10:02 AM Signed SOCIAL WORK FOLLOW UP NOTE: [facility] Date of service: April 20, 2024 Zane Buitrago is being seen for a follow up social work visit. Today's visit includes: Mother, Hawa TOPICS ADDRESSED: SW spoke to pt's mother this morning. She reports she has been attempting several times to call [employer] and have the no-income attestation letter sent to our office for pt to sign. She reports she has spoke to a rep several times and had given our office fax number to sent the form however when she called again this date to ask again the company reported no records of any request of the form. SW called assistance [employer] this date and inquired about the form being faxed to office. Rep reports that per policy, this request needs to come directly from the patient. Pt scheduled for labs on , 04/23. Rep reports pt can call on his own or with assistance of SW to request form. PLAN: SW to follow pt at upcoming appointments and remain in contact with pt throughout treatment to address any psychosocial concerns if needed. F/U APPOINTMENT: PRN Assigned SW listed in Care Team tab: Yes BARBI Shields Allergies As of Date: 04/20/2024 (No Known Allergies) Date Reviewed: 04/09/2024 Reviewed by: Killian Elam DO - Fully Assessed Reason for Visit: Social Work Services [507] Promacta Assistance [Other] Prescriptions as of 04/20/2024 - predniSONE (DELTASONE) 5 mg tablet Take 1 tablet by mouth once daily. - predniSONE (DELTASONE) 20 mg tablet Take 20 mg by mouth once daily. - eltrombopag olamine (PROMACTA) 50 mg tablet Take 1 tablet (50 mg) by mouth once daily. Administer on an empty stomach, 1 hour before or 2 hours after a meal. Problem List As Of Date 04/20/2024 Noted Resolved Pityriasis rosea [L42] 01/17/2016 Acute ITP (HCC) [D69.3] 06/25/2023 Chronic ITP (idiopathic thrombocytopenia) (HCC)*09/24/2023 Encounter Status:Closed by NEETA ROBERTSON on 04/20/24 [facility] CNPN Telephone ([email or web address]) ZANE BUITRAGO ([id number]) 2 M Date Time Provider Department 04/20/24 DAMARINEETA BORGES GEOVANI During your visit today, we recorded the following information about you: Neeta Robertson HILLARY 04/20/2024 9:57 AM Signed SW spoke to pt's mother this date. She reports concern that pt is not doing well. She reports he is very pale, significantly fatigued, has constant pain in legs and overall doesn't look good at all. Pt's mother reports pt will not voice symptoms when here for treatments or office visits but she feels someone needs to know how he is really doing. She reports she gives him ibuprofen time to time but it does not help. Mother asking to speak to Olimpia and asking for a callback at her work. [phone] extension [phone], ask for Hawa. Thank you, BARBI Shields Amber, RN 04/20/2024 12:06 PM Signed Care Coordination Triage Note [facility] Situation: Patient reports Fatigue and Pain/Back or Spine Pain/Headache Background: ITP, Q2 month Rituxan- last dose 04/13/24. Currently on prednisone 5 mg daily since 04/09. Fatigue started over the weekend. Per Dr. Elam's last OV notes from 04/09: Plan: -Decrease prednisone to 10 mg daily x 1 month then decrease to 5 mg x1 month then stop. -Rituximab on Saturday. -Start Promacta when receives it. -Weekly CBC beginning 04/23. Assessment: GENERALIZED PAIN Where is the pain? Legs, sometimes hips When did you first notice the pain? Its been awhile weeks How intense is the pain right now (scale of 1-10)? medication, and muscle relaxer's. How do you describe the pain: unable to describe d/t patient not being with mom. Does the pain radiate anywhere? no Is the pain constant or intermittent? Intermittent What makes it better? Shower What makes it worse? Walks a lot or even if he's very active that's when he hurts really bad Have you had this pain before? yes If yes, when? its not as bad as when he went to the hospital for leg pain. He was super stiff and couldn't walk. Per mother, [facility] ED said it was side effects from chemotherapy. Nov or December of this year. ED gave him IVF and pain medication. Patient was receiving rituxan at the time. What are you taking anything for the pain? ibuprofen Are you doing anything else to help with the pain other than medications? (heat, cold, movement, stretching, etc) stretching? He pulls his leg up and stretches it out Fatigue: started over the weekend. Sleeping 10-12 hours in a 24 hour period. Fatigue is not limiting his ability to eat/drink fluids. Denies SOB, weakness in legs/arms, chest pain/pressure. Appetite/fluid intake: no issues that mother is aware of Denies unusual bruising or bleeding Mother unsure if he is still having dizziness that was reported last week. Recommendations: Per RNCC- Mother stated patient does not live with her and she has not seen him in the last few days. Informed mother we could check his labs tomorrow instead of waiting until . When she speaks to patient, if he is still not feeling well, has uncontrolled pain, weak/fatigued, does not look good, he should go to [facility] ED for evaluation. Mother stated she will call patient and see how he is feeling today and will call our office back. She was also agreeable to take him to [facility] ED if needed. Olimpia Graves RN April 20, 2024 11:32 AM Olimpia Graves RN 04/20/2024 12:06 PM Signed Mother is going to call patient and call this nurse back. AMISH Mooney Brandy 04/20/2024 12:44 PM Signed Mother called back and stated that Zane said he is feeling much better and slept good last night, so he thinks he will be fine to come in as scheduled 04/23/24 for lab work. Killian Elam DO 04/26/2024 11:24 AM Signed He needs to get set up with a PCP. DO Winston Low Stephanie 04/27/2024 8:44 AM Signed ATC patient, but no answer and voicemail is full. ATC patient's mother and no answer and no voicemail set up. Claribel Humphries 04/27/2024 1:13 PM Signed Patient's Mother Mbale called back in and I scheduled Zane to [facility] with 07/07/24 @ 5:40 pm, she confirmed this date, time and location Claribel Mcdowell Pss Allergies As of Date: 04/20/2024 (No Known Allergies) Date Reviewed: 04/09/2024 Reviewed by: Killian Elam DO - Fully Assessed Reason for Visit: Pt Symptoms [Other] Prescriptions as of 04/27/2024 - predniSONE (DELTASONE) 5 mg tablet Take 1 tablet by mouth once daily. - predniSONE (DELTASONE) 20 mg tablet Take 20 mg by mouth once daily. - eltrombopag olamine (PROMACTA) 50 mg tablet Take 1 tablet (50 mg) by mouth once daily. Administer on an empty stomach, 1 hour before or 2 hours after a meal. Problem List As Of Date 04/20/2024 Noted Resolved Pityriasis rosea [L42] 01/17/2016 Acute I (more content not included)... Normal [facility] Rangel 04-13-2024 CNPN Telephone (GEOVANI) ZANE BUITRAGO ([id number]) 2 M Date Time Provider Department 04/13/24 KILLIAN ELAM During your visit today, we recorded the following information about you: Amanda Rodriguez RN 04/13/2024 10:01 AM Signed Pt here today for D1C5 Rituxan. States that he has been experiencing dizziness that started a few days ago. Pt states that sometimes it's a spinning sensation, other times its just a feeling of being unsteady. Typically happens when he is moving. States that when he is seated or laying down, the sensation stops. Pt states he is eating and drinking normally, although he feels queasy when he experiences the dizziness. Pt vomited 4 times yesterday and states he felt like he was running a fever but did not take his temp. Pt states he feels more fatigued today as compared to usual. Please advise. Today's vitals are T 98.6f BP 133/74 P88 Killian Elam DO 04/13/2024 10:05 AM Signed Sounds like a viral type vertigo. Can treat today then send to urgent care. He has no PCP. DO Kena Low Stephanie, RN 04/13/2024 10:06 AM Signed Will inform pt. Thank you. Allergies As of Date: 04/13/2024 (No Known Allergies) Date Reviewed: 04/09/2024 Reviewed by: Killian Elam DO - Fully Assessed Reason for Visit: Patient Update [1234] Prescriptions as of 04/13/2024 - predniSONE (DELTASONE) 5 mg tablet Take 1 tablet by mouth once daily. - predniSONE (DELTASONE) 20 mg tablet Take 20 mg by mouth once daily. - eltrombopag olamine (PROMACTA) 50 mg tablet Take 1 tablet (50 mg) by mouth once daily. Administer on an empty stomach, 1 hour before or 2 hours after a meal. Facility-Administered Medications as of 04/13/2024 - diphenhydrAMINE 50 mg capsule (BENADRYL) - acetaminophen 650 mg tab(s) (TYLENOL) - riTUXimab 700 mg in NaCl 0.9% 250 mL (RITUXAN) - NaCl 0.9% iv infusion - diphenhydrAMINE 50 mg injection (BENADRYL) - hydrocortisone sodium succinate (PF) 100 mg injection (Solu-CORTEF) - EPINEPHrine HCl (PF) 1 mg/mL (1 mL) 0.3 mg injection Problem List As Of Date 04/13/2024 Noted Resolved Pityriasis rosea [L42] 01/17/2016 Acute ITP (HCC) [D69.3] 06/25/2023 Chronic ITP (idiopathic thrombocytopenia) (HCC)*09/24/2023 Encounter Status:Closed by AMANDA RODRIGUEZ on 04/13/24 Normal [facility] CBC W Auto Differential pane l (Bld)on 04-09-2024 Basophils (Bld) [#/Vol] 10*3/uL Normal <0.11 [facility] Comment on above: Order Comment: Speci men Type: BLOOD SPECIMENOrdering Facility: [facility] Address: [address] [place] [address] Performed By: #### 5 7021-8 ####[facility] MILLTOWNCLIA [id number] [place] [address] [place] Basophils/100 WBC (Bld) 0.3 % Normal [facility] Comment on above: Order Comment: Speci men Type: BLOOD SPECIMENOrdering Facility: [facility] Address: [address] [place] [address] Performed By: #### 5 7021-8 ####[facility] EMERGENCYNCLIA [id number] [place] [address] [place] Differential cell count method Nom (Bld) Auto Normal [facility] Comment on above: Order Comment: Speci men Type: BLOOD SPECIMENOrdering Facility: [facility] Address: [address] [place] [address] Performed By: #### 5 7021-8 ####[facility] MILLWNCLIA [id number] [place] [address] [place] Eosinophils (Bld) [#/Vol] 10*3/uL Normal <0.46 [facility] Comment on above: Order Comment: Speci men Type: BLOOD SPECIMENOrdering Facility: [facility] Address: [address] [place] [address] Performed By: #### 5 7021-8 ####[facility] MILLTOWNCLIA [id number] [place] [address] [place] Eosinophils/100 WBC (Bld) 0.3 % Normal [facility] Comment on above: Order Comment: Speci men Type: BLOOD SPECIMENOrdering Facility: [facility] Address: [address] [place] [address] Performed By: #### 5 7021-8 ####[facility] MILLTOWNCLIA [id number] [place] [address] [place] Erythrocyte distribution width (RBC) [Ratio] 12.7 % Normal 11.5-15.0 [facility] Comment on above: Order Comment: Speci men Type: BLOOD SPECIMENOrdering Facility: [facility] Address: [address] [place] [address] Performed By: #### 5 7021-8 ####[facility] EMERGENCYPATRICIA [id number] [place] [address] [place] Hematocrit (Bld) [Volume fraction] 41.8 % Normal 39.0-51.0 [facility] Comment on above: Order Comment: Speci men Type: BLOOD SPECIMENOrdering Facility: [facility] Address: [address] [place] [address] Performed By: #### 5 7021-8 ####[facility] EMERGENCYNCMARCIAL [id number] [place] [address] [place] Hemoglobin (Bld) [Mass/Vol] 14.2 g/dL Normal 13.0-17.0 [facility] Comment on above: Order Comment: Speci men Type: BLOOD SPECIMENOrdering Facility: [facility] Address: [address] [place] [address] Performed By: #### 5 7021-8 ####[facility] EMERGENCYCATELIMarybel [id number] [place] [address] [place] Immature granulocytes (Bld) [#/Vol] 0.04 10*3/uL Normal <0.10 [facility] Comment on above: Order Comment: Speci men Type: BLOOD SPECIMENOrdering Facility: [facility] Address: [address] [place] [address] Performed By: #### 5 7021-8 ####[facility] EMERGENCYNCLIA [id number] [place] [address] [place] Immature granulocytes/100 WBC (Bld) 0.5 % Normal [facility] Comment on above: Order Comment: Speci men Type: BLOOD SPECIMENOrdering Facility: [facility] Address: [address] [place] [address] Performed By: #### 5 7021-8 ####[facility] ANGELMadinaNCLAKEISHAA [id number] [place] [address] [place] Lymphocytes (Bld) [#/Vol] 1.78 10*3/uL Normal 1.00-4.00 [facility] Comment on above: Order Comment: Speci men Type: BLOOD SPECIMENOrdering Facility: [facility] Address: [address] [place] [address] Performed By: #### 5 7021-8 ####[facility] [id number] [place] [address] [place] Lymphocytes/100 WBC (Bld) 23.2 % Normal [facility] Comment on above: Order Comment: Speci men Type: BLOOD SPECIMENOrdering Facility: [facility] Address: [address] [place] [address] Performed By: #### 5 7021-8 ####[facility] EMERGENCYNCUINTAH BAS[facility] [id number] [place] [address] [place] MCH (RBC) [Entitic mass] 30.5 pg Normal 26.0-34.0 [facility] Comment on above: Order Comment: Speci men Type: BLOOD SPECIMENOrdering Facility: [facility] Address: [address] [place] [address] Performed By: #### 5 7021-8 ####[facility] EMERGENCYNCA [id number] [place] [address] [place] MCHC (RBC) [Mass/Vol] 34.0 g/dL Normal 30.5-36.0 [facility] Comment on above: Order Comment: Speci men Type: BLOOD SPECIMENOrdering Facility: [facility] Address: [address] [place] [address] Performed By: #### 5 7021-8 ####[facility] ANGELWNCLIA [id number] [place] [address] [place] MCV (RBC) [Entitic vol] 89.9 fL Normal 80.0-100.0 [facility] Comment on above: Order Comment: Speci men Type: BLOOD SPECIMENOrdering Facility: [facility] Address: [address] [place] [address] Performed By: #### 5 7021-8 ####[facility] HOSPITALLIA [id number] [place] [address] [place] Monocytes (Bld) [#/Vol] 0.32 10*3/uL Normal <0.87 [facility] Comment on above: Order Comment: Speci men Type: BLOOD SPECIMENOrdering Facility: [facility] Address: [address] [place] [address] Performed By: #### 5 7021-8 ####[facility] HOSPITALLIA [id number] [place] [address] [place] Monocytes/100 WBC (Bld) 4.2 % Normal [facility] Comment on above: Order Comment: Speci men Type: BLOOD SPECIMENOrdering Facility: [facility] Address: [address] [place] [address] Performed By: #### 5 7021-8 ####[facility] HOSPITALLIA [id number] [place] [address] [place] Neutrophils (Bld) [#/Vol] 5.49 10*3/uL Normal 1.45-7.50 [facility] Comment on above: Order Comment: Speci men Type: BLOOD SPECIMENOrdering Facility: [facility] Address: [address] [place] [address] Performed By: #### 5 7021-8 ####[facility] HOSPITALLIA [id number] [place] [address] [place] Neutrophils/100 WBC (Bld) 71.5 % Normal [facility] Comment on above: Order Comment: Speci men Type: BLOOD SPECIMENOrdering Facility: [facility] Address: [address] [place] [address] Performed By: #### 5 7021-8 ####[facility] [id number] [place] [address] [place] Nucleated RBC (Bld) [#/Vol] 10*3/uL Normal <0.01 [facility] Comment on above: Order Comment: Speci men Type: BLOOD SPECIMENOrdering Facility: [facility] Address: [address] [place] [address] Performed By: #### 5 7021-8 ####[facility] EMERGENCYNCUINTAH [facility] [id number] [place] [address] [place] Nucleated RBC/100 WBC (Bld) [Ratio] 0.0 /100 WBC Normal [facility] Comment on above: Order Comment: Speci men Type: BLOOD SPECIMENOrdering Facility: [facility] Address: [address] [place] [address] Performed By: #### 5 7021-8 ####[facility] [id number] [place] [address] [place] Platelet mean volume (Bld) [Entitic vol] 10.5 fL Normal 9.0-12.7 [facility] Comment on above: Order Comment: Speci men Type: BLOOD SPECIMENOrdering Facility: [facility] Address: [address] [place] [address] Performed By: #### 5 7021-8 ####[facility]GENCYNCUINTAH [facility] [id number] [place] [address] [place] Platelets (Bld) [#/Vol] 230 10*3/uL Normal 150-400 [facility] Comment on above: Order Comment: Speci men Type: BLOOD SPECIMENOrdering Facility: [facility] Address: [address] [place] [address] Performed By: #### 5 7021-8 ####[facility]ITALWNCLIA [id number] [place] [address] [place] RBC (Bld) [#/Vol] 4.65 10*6/uL Normal 4.20-6.00 [facility] Comment on above: Order Comment: Speci men Type: BLOOD SPECIMENOrdering Facility: [facility] Address: [address] [place] [address] Performed By: #### 5 7021-8 ####[facility] EMERGENCYNCLIA [id number] [place] [address] [place] WBC (Bld) [#/Vol] 7.67 10*3/uL Normal 3.70-11.00 [facility] Comment on above: Order Comment: Speci men Type: BLOOD SPECIMENOrdering Facility: [facility] Address: [address] [place] [address] Performed By: #### 5 7021-8 ####[facility] EMERGENCYNCLIA [id number] [place] [address] [place] CNOVSPon 04-09-2024 [facility] Visit (SP) Office (HEMAWS) ZANE BUITRAGO ([id number]) 2 M Date Time Provider Department 04/09/24 8:50 AM KILLIAN ELAM During your visit today, we recorded the following information about you: Temperature Pulse Blood pressure Weight 97.1 degrees 60/minute 117/68 78.5 kg Killian Elam DO 04/09/2024 9:24 AM Signed Problems: 1) ITP. 2) Hypofibrinogenemia--re solved. HPI: The patient is an otherwise healthy 23-year-old male whom I saw in consultation at the [facility] ED 05/22/2023 for severe thrombocytopenia and bruising. Per my HPI there: The patient is a 23-year-old male with an unremarkable past medical history. He presented to the ED earlier this afternoon with complaints of bruising. Symptoms have been going on about a month. He was afebrile on presentation. He said for the last month whenever he gets up in the morning he feels exhausted and has all over body aches. Often has to soak in a hot tub to start feeling better. He has been noticing unprovoked bruises all over for the last month. He has not had petechiae. Occasional gum bleeding when he brushes his teeth. No epistaxis or rectal bleeding. He has not had fevers or drenching night sweats. His appetite has been poor and he has lost about 10 to 15 pounds. He endorses that if he lies on his stomach, he develops abdominal pain. He has developed reflux symptoms in the last few days. No nausea or vomiting. He has not had black or bloody stools. Pertinent lab findings were initial platelet count 26,000. Remainder of CBC was normal. No schistocytes observed. Coagulation times normal. Fibrinogen low. D-dimer was normal. Thrombin time was normal. He was started on pulse dose dexamethasone 40 mg daily which she received on Saturday, , Saturday and Saturday of last week. Hospital day 3 platelets had increased to 48,000. 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 COMMENT Flow cytometry, FISH and cytogenetic studies are pending. Clinical correlation and appropriate follow up are necessary. Case has been reviewed in consultation with Dr. Hernandes who concurs with the above diagnosis. BONE MARROW STUDY Slides are reviewed. CBC DATE: 05/23/23 WBC 8.18; RBC 4.99; HGB 15.5; HCT 45.3; MCV 98.8; RDW 12.8; PLTS 48,000 SEGS 80.9%; LYMPHS 14.5%; MONOS 3.9%; EOS 0.0%; BASOS 0.1%; Immature granulocytes 0.6% PERIPHERAL SMEAR: Submitted. RBC: Normocytic and normochromic. WBC: Unremarkable. The WBC count is compatible to as reported above. PLTS: Markedly decreased. BONE MARROW ASPIRATE DIFFERENTIAL: 200 cell count. Blasts % (normal 0-2): 0 Promyelocytes % (normal 1-5): 2 Myelocytes and metamyelocytes % (normal 17-41): 24 Bands and Segs % (normal 15-32): 35 Eos % (normal 1-6): 3 Basos % (normal 0-1): 0 Monocytes % (normal 0-4): 2 Erythroid Precursors % (normal 17-35): 22 Lymphocytes % (normal 7-13): 12 Plasma Cells % (normal 0-2): 0 ASPIRATE FINDINGS: Site: Not specified Spicular, Cellular M/E ratio: 2.9 (Normal 1.5-4.0) Megakaryocytes: Present. Hypolobated and micromegakaryocytes are noted. Erythropoiesis: Normoblastic. Granulopoiesis: Progressive and unremarkable. Comment: Megakaryocytic dysplasia is noted. CORE BIOPSY FINDINGS: Site: Not specified Adequacy: Limited Comment: The specimen predominantly consists of peripheral blood mixed with a few hematopoietic cells consisting of erythroid, myeloid and megakaryocytes. ASPIRATE CLOT FINDINGS: Site: Not specified Marrow particles: Numerous Cellularity: 50% M/E ratio: Within normal limits. Megakaryocytes: Present and increased in number. Granulomas: Absent. Lymphoid aggregates: Absent. Atypical infiltrates: Absent. SPECIAL STAINS WITH MATCHED CONTROLS: Iron: 1+, atypical or ring sideroblasts are not seen. Reticulin: No significant increase of reticulin fibers is noted. PAS: Highlights myeloid cells and megakaryocytes. Between February and May of this year he had been drinking heavily. Tequila. Approximately half of fifth a day. Started after a break-up with his girlfriend in February. After his ER visit, he cut down. Still drinks sporadically. Previous therapy: 1) Dexamethasone 40 mg x4 days. 2) IVIG. 3) Rituximab. Current therapy: 1) Prednisone 20 mg daily started 06/11. 2) Rituximab. 3) Promacta--Rx in process. Started prednisone 06/11 for platelet count of 17,000. Had increased to 89,000-week later but a week after that decline to 28,000. Received IVIG 1 g/day x2 days 06/26 and 06/27. Tolerated well. Presents for ongoing hematologic management. Interim history: Occasional unexplained bruises on legs. No bleeding issues. No febrile illnesses since last se (more content not included)... Normal [facility] ZANE BUITRAGO ([id number]) 2 M Date Time Provider Department 04/06/24 KILLIAN ELAM During your visit today, we recorded the following information about you: Katherine Walsh LPN 04/06/2024 8:08 AM Signed ----- Message from Killian Elam DO sent at 04/03/2024 5:22 PM EDT ----- How much prednisone is he taking now? Bernadette Barron LPN 04/06/2024 9:03 AM Signed sent [employer] message. ANIRUDH Liang Samantha, LISW 04/07/2024 12:39 PM Signed SOCIAL WORK FOLLOW UP NOTE: [facility] Date of service: April 07, 2024 Spoke with pharmacy this who has been trying to reach pt to sign a no income attestation form for [employer]. Pharmacy and assistance [employer] have had difficulty reaching pt. SW sent [employer] message to pt this informing him to call [employer] and request attestation form to be sent to this office so pt can sign when he's here this coming . Will discuss with pt in person this week if form not received before . BARBI Shields Melanie, LPN 04/08/2024 3:27 PM Signed Attempted to contact patient several times without success. No answer, VM full. ANIRUDH Fenton Melanie, LPN 04/09/2024 9:01 AM Signed Patient is currently taking prednisone 20 mg daily. Katherine Walsh LPN Allergies As of Date: 04/06/2024 (No Known Allergies) Date Reviewed: 03/19/2024 Reviewed by: Carolina Medina RN - Fully Assessed Prescriptions as of 04/09/2024 - predniSONE (DELTASONE) 20 mg tablet Take 20 mg by mouth once daily. - eltrombopag olamine (PROMACTA) 50 mg tablet Take 1 tablet (50 mg) by mouth once daily. Administer on an empty stomach, 1 hour before or 2 hours after a meal. Problem List As Of Date 04/06/2024 Noted Resolved Pityriasis rosea [L42] 01/17/2016 Acute ITP (HCC) [D69.3] 06/25/2023 Chronic ITP (idiopathic thrombocytopenia) (HCC)*09/24/2023 Encounter Status:Closed by NEETA ROBERTSON on 04/07/24 Normal [facility] CBC W Auto Differential pane l (Bld)on 04-02-2024 Basophils (Bld) [#/Vol] 10*3/uL Normal <0.11 [facility] above: Order Comment: Speci men Type: BLOOD SPECIMEN [facility]ing Facility: [facility] Address: [address] [place] [address] Performed By: #### 5 7021-8 #### [facility] CLIA [id number] [address] [place] [address] [place] Basophils/100 WBC (Bld) 0.2 % Normal [facility] Comment on above: Order Comment: Speci men Type: BLOOD SPECIMEN Ordering Facility: [facility] Address: [address] [place] [address] Performed By: #### 5 7021-8 #### [facility] CLIA [id number] [address] [place] [address] [place] Differential cell count method Nom (Bld) Auto Normal [facility] Comment on above: Order Comment: Speci men Type: BLOOD SPECIMEN Ordering Facility: [facility] Address: [address] [place] [address] Performed By: #### 5 7021-8 #### [facility] CLIA [id number] [address] [place] [address] [place] Eosinophils (Bld) [#/Vol] 0.03 10*3/uL Normal <0.46 [facility] Comment on above: Order Comment: Speci men Type: BLOOD SPECIMEN Ordering Facility: [facility] Address: [address] [place] [address] Performed By: #### 5 7021-8 #### [facility] CLIA [id number] [address] [place] [address] [place] Eosinophils/100 WBC (Bld) 0.3 % Normal [facility] Comment on above: Order Comment: Speci men Type: BLOOD SPECIMEN Ordering Facility: [facility] Address: [address] [place] [address] Performed By: #### 5 7021-8 #### [facility] CLIA [id number] [address] [place] [address] [place] Erythrocyte distribution width (RBC) [Ratio] 12.7 % Normal 11.5-15.0 [facility] Comment on above: Order Comment: Speci men Type: BLOOD SPECIMEN Ordering Facility: [facility] Address: [address] [place] [address] Performed By: #### 5 7021-8 #### [facility] CLIA [id number] [address] [place] [address] [place] Hematocrit (Bld) [Volume fraction] 44.6 % Normal 39.0-51.0 [facility] Comment on above: Order Comment: Speci men Type: BLOOD SPECIMEN Ordering Facility: [facility] Address: [address] [place] [address] Performed By: #### 5 7021-8 #### [facility] CLIA [id number] [address] [place] [address] [place] Hemoglobin (Bld) [Mass/Vol] 15.3 g/dL Normal 13.0-17.0 [facility] Comment on above: Order Comment: Speci men Type: BLOOD SPECIMEN Ordering Facility: [facility] Address: [address] [place] [address] Performed By: #### 5 7021-8 #### [facility] CLIA [id number] [address] [place] [address] [place] Immature granulocytes (Bld) [#/Vol] 0.09 10*3/uL Normal <0.10 [facility] Comment on above: Order Comment: Speci men Type: BLOOD SPECIMEN Ordering Facility: [facility] Address: [address] [place] [address] Performed By: #### 5 7021-8 #### [facility] CLIA [id number] [address] [place] [address] [place] Immature granulocytes/100 WBC (Bld) 1.0 % Normal [facility] Comment on above: Order Comment: Speci men Type: BLOOD SPECIMEN Ordering Facility: [facility] Address: [address] [place], [place] [id number] Performed By: #### 5 7021-8 #### [facility] CLIA [id number] [address] [place] [address] [place] Lymphocytes (Bld) [#/Vol] 2.27 10*3/uL Normal 1.00-4.00 [facility] Comment on above: Order Comment: Speci men Type: BLOOD SPECIMEN Ordering Facility: [facility] Address: [address] [place] [address] Performed By: #### 5 7021-8 #### [facility] CLIA [id number] [address] [place] [address] [place] Lymphocytes/100 WBC (Bld) 25.1 % Normal [facility] Comment on above: Order Comment: Speci men Type: BLOOD SPECIMEN Ordering Facility: [facility] Address: [address] [place] [address] Performed By: #### 5 7021-8 #### [facility] CLIA [id number] [address] [place] [address] [place] MCH (RBC) [Entitic mass] 30.4 pg Normal 26.0-34.0 [facility] Comment on above: Order Comment: Speci men Type: BLOOD SPECIMEN Ordering Facility: [facility] Address: [address] [place] [address] Performed By: #### 5 7021-8 #### [facility] CLIA [id number] [address] [place] [address] [place] MCHC (RBC) [Mass/Vol] 34.3 g/dL Normal 30.5-36.0 [facility] Comment on above: Order Comment: Speci men Type: BLOOD SPECIMEN Ordering Facility: [facility] Address: [address] [place] [address] Performed By: #### 5 7021-8 #### [facility] CLIA [id number] [address] [place] [address] [place] MCV (RBC) [Entitic vol] 88.7 fL Normal 80.0-100.0 [facility] Comment on above: Order Comment: Speci men Type: BLOOD SPECIMEN Ordering Facility: [facility] Address: [address] [place] [address] Performed By: #### 5 7021-8 #### [facility] CLIA [id number] [address] [place] [address] [place] Monocytes (Bld) [#/Vol] 0.54 10*3/uL Normal <0.87 [facility] Comment on above: Order Comment: Speci men Type: BLOOD SPECIMEN Ordering Facility: [facility] Address: [address] [place] [address] Performed By: #### 5 7021-8 #### [facility] CLIA [id number] [address] [place] [address] [place] Monocytes/100 WBC (Bld) 6.0 % Normal [facility] Comment on above: Order Comment: Speci men Type: BLOOD SPECIMEN Ordering Facility: [facility] Address: [address] [place] [address] Performed By: #### 5 7021-8 #### [facility] CLIA [id number] [address] [place] [address] [place] Neutrophils (Bld) [#/Vol] 6.09 10*3/uL Normal 1.45-7.50 [facility] Comment on above: Order Comment: Speci men Type: BLOOD SPECIMEN Ordering Facility: [facility] Address: [address] [place], [place] [address] Performed By: #### 5 7021-8 #### [facility] CLIA [id number] [address] [place] [address] [place] Neutrophils/100 WBC (Bld) 67.4 % Normal [facility] Comment on above: Order Comment: Speci men Type: BLOOD SPECIMEN Ordering Facility: [facility] Address: [address] [place] [address] Performed By: #### 5 7021-8 #### [facility] CLIA [id number] [address] [place] [address] [place] Nucleated RBC (Bld) [#/Vol] 10*3/uL Normal <0.01 [facility] Comment on above: Order Comment: Speci men Type: BLOOD SPECIMEN Ordering Facility: [facility] Address: [facility] [place] [address] Performed By: #### 5 7021-8 #### [facility] CLIA [id number] [address] [place] [address] [place] Nucleated RBC/100 WBC (Bld) [Ratio] 0.0 /100 WBC Normal [facility] Comment on above: Order Comment: Speci men Type: BLOOD SPECIMEN Ordering Facility: [facility] Address: [address] [place] [address] Performed By: #### 5 7021-8 #### [facility] CLIA [id number] [address] [place] [address] [place] Platelet mean volume (Bld) [Entitic vol] 10.7 fL Normal 9.0-12.7 [facility] Comment on above: Order Comment: Speci men Type: BLOOD SPECIMEN Ordering Facility: [facility] Address: [address] [place] [address] Performed By: #### 5 7021-8 #### [facility] CLIA [id number] [address] [place] [address] [place] Platelets (Bld) [#/Vol] 252 10*3/uL Normal 150-400 [facility] Comment on above: Order Comment: Speci men Type: BLOOD SPECIMEN Ordering [facility]: [facility] Address: [address] [place] [address] Performed By: #### 5 7021-8 #### [facility] CLIA [id number] [address] [place] [address] [place] RBC (Bld) [#/Vol] 5.03 10*6/uL Normal 4.20-6.00 [facility] Comment on above: Order Comment: Speci men Type: BLOOD SPECIMEN Ordering [facility]: [facility] Address: [address] [place] [address] Performed By: #### 5 7021-8 #### [facility] CLIA [id number] [address] [place] [address] [place] WBC (Bld) [#/Vol] 9.04 10*3/uL Normal 3.70-11.00 [facility] Comment on above: Order Comment: Speci men Type: BLOOD SPECIMEN Order[facility] Address: [address] [place] [address] Performed By: #### 5 7021-8 #### [facility] CLIA [id number] [address] [place] [address] [place] CBC W Auto Differential pane l (Bld)on 03-26-2024 Basophils (Bld) [#/Vol] 10*3/uL Normal <0.11 [facility] Comment on above: Order Comment: Speci men Type: BLOOD SPECIMENOrdering Facility: [facility] Address: [address] [place] [address] Performed By: #### 5 7021-8 ####[facility] [id number] [place] [address] [place] Basophils/100 WBC (Bld) 0.2 % Normal [facility] Comment on above: Order Comment: Speci men Type: BLOOD SPECIMENOrdering Facility: [facility] Address: [address] [place] [address] Performed By: #### 5 7021-8 ####[facility] [id number] [place] [address] [place] Differential cell count method Nom (Bld) Auto Normal [facility] Comment on above: Order Comment: Speci men Type: BLOOD SPECIMENOrdering Facility: [facility] Address: [address] [place] [address] Performed By: #### 5 7021-8 ####[facility] [id number] [place] [address] [place] Eosinophils (Bld) [#/Vol] 10*3/uL Normal <0.46 [facility] Comment on above: Order Comment: Speci men Type: BLOOD SPECIMENOrdering Facility: [facility] Address: [address] [place] [address] Performed By: #### 5 7021-8 ####[facility] LIVIAWCATELIA [id number] [place] [address] [place] Eosinophils/100 WBC (Bld) 0.0 % Normal [facility] Comment on above: Order Comment: Speci men Type: BLOOD SPECIMENOrdering Facility: [facility] Address: [address] [place] [address] Performed By: #### 5 7021-8 ####[facility] ANGELOAK RIDGECATELIA [id number] [place] [address] [place] Erythrocyte distribution width (RBC) [Ratio] 12.5 % Normal 11.5-15.0 [facility] Comment on above: Order Comment: Speci men Type: BLOOD SPECIMENOrdering Facility: [facility] Address: [address] [place] [address] Performed By: #### 5 7021-8 ####[facility] BOULEVARDA [id number] [place] [address] [place] Hematocrit (Bld) [Volume fraction] 41.1 % Normal 39.0-51.0 [facility] Comment on above: Order Comment: Speci men Type: BLOOD SPECIMENOrdering Facility: [facility] Address: [address] [place] [address] Performed By: #### 5 7021-8 ####[facility]CL[facility] [id number] [place] [address] [place] Hemoglobin (Bld) [Mass/Vol] 13.9 g/dL Normal 13.0-17.0 [facility] Comment on above: Order Comment: Speci men Type: BLOOD SPECIMENOrdering Facility: [facility] Address: [address] [place] [address] Performed By: #### 5 7021-8 ####[facility]CL[facility] [id number] [place] [address] [place] Immature granulocytes (Bld) [#/Vol] 0.08 10*3/uL Normal <0.10 [facility] Comment on above: Order Comment: Speci men Type: BLOOD SPECIMENOrdering Facility: [facility] Address: [address] [place] [address] Performed By: #### 5 7021-8 ####[facility] [id number] [place] [address] [place] Immature granulocytes/100 WBC (Bld) 0.8 % Normal [facility] Comment on above: Order Comment: Speci men Type: BLOOD SPECIMENOrdering Facility: [facility] Address: [address] [place] [address] Performed By: #### 5 7021-8 ####[facility] [id number] [place] [address] [place] Lymphocytes (Bld) [#/Vol] 1.79 10*3/uL Normal 1.00-4.00 [facility] Comment on above: Order Comment: Speci men Type: BLOOD SPECIMENOrdering Facility: [facility] Address: [address] [place] [address] Performed By: #### 5 7021-8 ####[facility] [id number] [place] [address] [place] Lymphocytes/100 WBC (Bld) 17.6 % Normal [facility] Comment on above: Order Comment: Speci men Type: BLOOD SPECIMENOrdering Facility: [facility] Address: [address] [place] [address] Performed By: #### 5 7021-8 ####[facility] [id number] [place] [address] [place] MCH (RBC) [Entitic mass] 30.0 pg Normal 26.0-34.0 [facility] Comment on above: Order Comment: Speci men Type: BLOOD SPECIMENOrdering Facility: [facility] Address: [address] [place] [address] Performed By: #### 5 7021-8 ####[facility]YNCUIN[facility] [id number] [place] [address] [place] MCHC (RBC) [Mass/Vol] 33.8 g/dL Normal 30.5-36.0 [facility] Comment on above: Order Comment: Speci men Type: BLOOD SPECIMENOrdering Facility: [facility] Address: [address] [place] [address] Performed By: #### 5 7021-8 ####[facility] [id number] [place] [address] [place] MCV (RBC) [Entitic vol] 88.8 fL Normal 80.0-100.0 [facility] Comment on above: Order Comment: Speci men Type: BLOOD SPECIMENOrdering Facility: [facility] Address: [address] [place] [address] Performed By: #### 5 7021-8 ####[facility] [id number] [place] [address] [place] Monocytes (Bld) [#/Vol] 0.48 10*3/uL Normal <0.87 [facility] Comment on above: Order Comment: Speci men Type: BLOOD SPECIMENOrdering Facility: [facility] Address: [address] [place] [address] Performed By: #### 5 7021-8 ####[facility] [id number] [place] [address] [place] Monocytes/100 WBC (Bld) 4.7 % Normal [facility] Comment on above: Order Comment: Speci men Type: BLOOD SPECIMENOrdering Facility: [facility] Address: [address] [place] [address] Performed By: #### 5 7021-8 ####[facility] MILLTOWNCLIA [id number] [place] [address] [place] Neutrophils (Bld) [#/Vol] 7.78 10*3/uL High 1.45-7.50 [facility] Comment on above: Order Comment: Speci men Type: BLOOD SPECIMENOrdering Facility: [facility] Address: [address] [place] [address] Performed By: #### 5 7021-8 ####[facility] MILLWNCLIA [id number] [place] [address] [place] Neutrophils/100 WBC (Bld) 76.7 % Normal [facility] Comment on above: Order Comment: Speci men Type: BLOOD SPECIMENOrdering Facility: [facility] Address: [address] [place] [address] Performed By: #### 5 7021-8 ####[facility]CL[facility] [id number] [place] [address] [place] Nucleated RBC (Bld) [#/Vol] 10*3/uL Normal <0.01 [facility] Comment on above: Order Comment: Speci men Type: BLOOD SPECIMENOrdering Facility: [facility] Address: [address] [place] [address] Performed By: #### 5 7021-8 ####[facility] MILLTOWNCLIA [id number] [place] [address] [place] Nucleated RBC/100 WBC (Bld) [Ratio] 0.0 /100 WBC Normal [facility] Comment on above: Order Comment: Speci men Type: BLOOD SPECIMENOrdering Facility: [facility] Address: [address] [place] [address] Performed By: #### 5 7021-8 ####[facility] MILLWNCLIA [id number] [place] [address] [place] Platelet mean volume (Bld) [Entitic vol] 10.6 fL Normal 9.0-12.7 [facility] Comment on above: Order Comment: Speci men Type: BLOOD SPECIMENOrdering Facility: [facility] Address: [address] [place] [address] Performed By: #### 5 7021-8 ####[facility] ANGELBRADA [id number] [place] [address] [place] Platelets (Bld) [#/Vol] 264 10*3/uL Normal 150-400 [facility] Comment on above: Order Comment: Speci men Type: BLOOD SPECIMENOrdering Facility: [facility] Address: [address] [place] [address] Performed By: #### 5 7021-8 ####[facility]ENCYCATELAKEISHAA [id number] [place] [address] [place] RBC (Bld) [#/Vol] 4.63 10*6/uL Normal 4.20-6.00 [facility] Comment on above: Order Comment: Speci men Type: BLOOD SPECIMENOrdering Facility: [facility] Address: [address] [place] [address] Performed By: #### 5 7021-8 ####[facility] RIDGECATELIA [id number] [place] [address] [place] WBC (Bld) [#/Vol] 10.15 10*3/uL Normal 3.70-11.00 [facility] Comment on above: Order Comment: Speci men Type: BLOOD SPECIMENOrdering Facility: [facility] Address: [address] [place] [address] Performed By: #### 5 7021-8 ####[facility] ANGELOAK RIDGENCLIA [id number] [address] [facility] Rangel 03-26-2024 CNPN Telephone (HEMAWS) ZANE BUITRAGO ([id number]) 2 M Date Time Provider Department 03/26/24 KILLIAN ELAM During your visit today, we recorded the following information about you: Jenny Hurley LPN 03/26/2024 1:04 PM Signed Pt. Had labs today , no transfusion needed per Dr. Elam Unable to leave message on pts. Or his mothers voicemail as one is full and the other is not set up. My chart message sent to pt. Jenny Hurley LPN Allergies As of Date: 03/26/2024 (No Known Allergies) Date Reviewed: 03/19/2024 Reviewed by: Carolina Medina, RN - Fully Assessed Prescriptions as of 04/30/2024 - predniSONE (DELTASONE) 5 mg tablet Take 1 tablet by mouth once daily. - predniSONE (DELTASONE) 20 mg tablet Take 20 mg by mouth once daily. - eltrombopag olamine (PROMACTA) 50 mg tablet Take 1 tablet (50 mg) by mouth once daily. Administer on an empty stomach, 1 hour before or 2 hours after a meal. Problem List As Of Date 03/26/2024 Noted Resolved Pityriasis rosea [L42] 01/17/2016 Acute ITP (HCC) [D69.3] 06/25/2023 Chronic ITP (idiopathic thrombocytopenia) (HCC)*09/24/2023 Encounter Status:Closed by JENNY HURLEY on 04/30/24 Normal [facility] CBC W Auto Differential pane l (Bld)on 03-19-2024 Basophils (Bld) [#/Vol] 0.03 10*3/uL Normal <0.11 [facility] Comment on above: Order Comment: Speci men Type: BLOOD SPECIMEN [facility] Address: [address] [place] [address] Performed By: #### 5 7021-8 #### [facility] [facility] CLIA [id number] [address] [place] [address] [place] Basophils/100 WBC (Bld) 0.5 % Normal [facility] Comment on above: Order Comment: Speci men Type: BLOOD SPECIMEN Ordering Facility: [facility] Address: [address] [place] [address] Performed By: #### 5 7021-8 #### [facility] CLIA [id number] [address] [place] [address] [place] Differential cell count method Nom (Bld) Auto Normal [facility] Comment on above: Order Comment: Speci men Type: BLOOD SPECIMEN Ordering Facility: [facility] Address: [address] [place] [address] Performed By: #### 5 7021-8 #### [facility] CLIA [id number] [address] [place] [address] [place] Eosinophils (Bld) [#/Vol] 0.07 10*3/uL Normal <0.46 [facility] Comment on above: Order Comment: Speci men Type: BLOOD SPECIMEN Ordering Facility: [facility] Address: [address] [place] [address] Performed By: #### 5 7021-8 #### [facility] CLIA [id number] [address] [place] [address] [place] Eosinophils/100 WBC (Bld) 1.1 % Normal [facility] Comment on above: Order Comment: Speci men Type: BLOOD SPECIMEN Ordering Facility: [facility] Address: [address] [place] [address] Performed By: #### 5 7021-8 #### [facility] CLIA [id number] [address] [place], [place] [address] [place] Erythrocyte distribution width (RBC) [Ratio] 12.4 % Normal 11.5-15.0 [facility] Comment on above: Order Comment: Speci men Type: BLOOD SPECIMEN Ordering Facility: [facility] Address: [address] [place] [address] Performed By: #### 5 7021-8 #### [facility] CLIA [id number] [address] [place] [address] [place] Hematocrit (Bld) [Volume fraction] 43.2 % Normal 39.0-51.0 [facility] Comment on above: Order Comment: Speci men Type: BLOOD SPECIMEN Ordering Facility: [facility] Address: [address] [place] [address] Performed By: #### 5 7021-8 #### [facility] CLIA [id number] [address] [place] [address] [place] Hemoglobin (Bld) [Mass/Vol] 14.9 g/dL Normal 13.0-17.0 [facility] Comment on above: Order Comment: Speci men Type: BLOOD SPECIMEN [facility]ing Facility: [facility] Address: [address] [place] [address] Performed By: #### 5 7021-8 #### [facility] CLIA [id number] [address] [place] [address] [place] Immature granulocytes (Bld) [#/Vol] 0.03 10*3/uL Normal <0.10 [facility] Comment on above: Order Comment: Speci men Type: BLOOD SPECIMEN [facility]ing Facility: [facility] Address: [address] [place] [address] Performed By: #### 5 7021-8 #### [facility] CLIA [id number] [address] [place] [address] [place] Immature granulocytes/100 WBC (Bld) 0.5 % Normal [facility] Comment on above: Order Comment: Speci men Type: BLOOD SPECIMEN Ordering Facility: [facility] Address: [address] [id number] Performed By: #### 5 7021-8 #### [facility] CLIA [id number] [address] [place] [address] [place] Lymphocytes (Bld) [#/Vol] 3.00 10*3/uL Normal 1.00-4.00 [facility] Comment on above: Order Comment: Speci men Type: BLOOD SPECIMEN Ordering [facility]: [facility] Address: [address] [place] [address] Performed By: #### 5 7021-8 #### [facility] CLIA [id number] [address] [place] [address] [place] Lymphocytes/100 WBC (Bld) 49.0 % Normal [facility] Comment on above: Order Comment: Speci men Type: BLOOD SPECIMEN Ordering [facility]: [facility] Address: [address] [place] [address] Performed By: #### 5 7021-8 #### [facility] CLIA [id number] [address] [place] [address] [place] MCH (RBC) [Entitic mass] 30.5 pg Normal 26.0-34.0 [facility] Comment on above: Order Comment: Speci men Type: BLOOD SPECIMEN Ordering Facility: [facility] Address: [address] [place] [address] Performed By: #### 5 7021-8 #### [facility] CLIA [id number] [address] [place] [address] [place] MCHC (RBC) [Mass/Vol] 34.5 g/dL Normal 30.5-36.0 [facility] Comment on above: Order Comment: Speci men Type: BLOOD SPECIMEN Ordering Facility: [facility] Address: [address] [place] [address] Performed By: #### 5 7021-8 #### [facility] CLIA [id number] [address] [place] [address] [place] MCV (RBC) [Entitic vol] 88.5 fL Normal 80.0-100.0 [facility] Comment on above: Order Comment: Speci men Type: BLOOD SPECIMEN Ordering [facility]: [facility] Address: [address] [place] [address] Performed By: #### 5 7021-8 #### [facility] CLIA [id number] [address] [place] [address] [place] Monocytes (Bld) [#/Vol] 0.36 10*3/uL Normal <0.87 [facility] Comment on above: Order Comment: Speci men Type: BLOOD SPECIMEN [facility] Address: [address] [place] [address] Performed By: #### 5 7021-8 #### [facility] CLIA [id number] [address] [place] [address] [place] Monocytes/100 WBC (Bld) 5.9 % Normal [facility] Comment on above: Order Comment: Speci men Type: BLOOD SPECIMEN [facility] Address: [address] [place] [address] Performed By: #### 5 7021-8 #### [facility] [id number] [address] [place] [address] [place] Neutrophils (Bld) [#/Vol] 2.63 10*3/uL Normal 1.45-7.50 [facility] Comment on above: Order Comment: Speci men Type: BLOOD SPECIMEN [facility] Address: [address] [place] [address] Performed By: #### 5 7021-8 #### [facility] CLIA [id number] [address] [place] [address] [place] Neutrophils/100 WBC (Bld) 43.0 % Normal [facility] Comment on above: Order Comment: Speci men Type: BLOOD SPECIMEN Ordering Facility: [facility] Address: [address] [place] [address] Performed By: #### 5 7021-8 #### [facility] CLIA [id number] [address] [place] [address] [place] Nucleated RBC (Bld) [#/Vol] 10*3/uL Normal <0.01 [facility] Comment on above: Order Comment: Speci men Type: BLOOD SPECIMEN Ordering [facility] Address: [address] [place] [address] Performed By: #### 5 7021-8 #### [facility] CLIA [id number] [address] [place] [address] [place] Nucleated RBC/100 WBC (Bld) [Ratio] 0.0 /100 WBC Normal [facility] Comment on above: Order Comment: Speci men Type: BLOOD SPECIMEN Ordering [facility] Address: [address] [place] [address] Performed By: #### 5 7021-8 #### [facility] [id number] [address] [place] [address] [place] Platelet mean volume (Bld) [Entitic vol] 10.3 fL Normal 9.0-12.7 [facility] Comment on above: Order Comment: Speci men Type: BLOOD SPECIMEN Ordering [facility] Address: [address] [place] [address] Performed By: #### 5 7021-8 #### [facility] CLIA [id number] [address] [place] [address] [place] Platelets (Bld) [#/Vol] 245 10*3/uL Normal 150-400 [facility] Comment on above: Order Comment: Speci men Type: BLOOD SPECIMEN Order[facility] Address: [address] [place] [address] Performed By: #### 5 7021-8 #### [facility] CLIA [id number] [address] [place] [address] [place] RBC (Bld) [#/Vol] 4.88 10*6/uL Normal 4.20-6.00 [facility] Comment on above: Order Comment: Speci men Type: BLOOD SPECIMEN [facility] Address: [address] [place] [address] Performed By: #### 5 7021-8 #### [facility] CLIA [id number] [address] [place] [address] [place] WBC (Bld) [#/Vol] 6.12 10*3/uL Normal 3.70-11.00 [facility] Comment on above: Order Comment: Speci men Type: BLOOD SPECIMEN [facility] Address: [address] [place] [address] Performed By: #### 5 7021-8 #### [facility] CLIA [id number] [address] [place] [address] [place] CBC W Auto Differential pane l (Bld)on 03-12-2024 Basophils (Bld) [#/Vol] 10*3/uL Normal <0.11 [facility] Comment on above: Order Comment: Speci men Type: BLOOD SPECIMENOrdering Facility: [facility] Address: [address] [place] [address] Performed By: #### 5 7021-8 ####[facility] [id number] [place] [address] [place] Basophils/100 WBC (Bld) 0.3 % Normal [facility] Comment on above: Order Comment: Speci men Type: BLOOD SPECIMENOrdering Facility: [facility] Address: [address] [place] [address] Performed By: #### 5 7021-8 ####[facility] ANGELWNCLIA [id number] [place] [address] [place] Differential cell count method Nom (Bld) Auto Normal [facility] Comment on above: Order Comment: Speci men Type: BLOOD SPECIMENOrdering Facility: [facility] Address: [address] [place] [address] Performed By: #### 5 7021-8 ####[facility] BOULEVARDA [id number] [place] [address] [place] Eosinophils (Bld) [#/Vol] 0.05 10*3/uL Normal <0.46 [facility] Comment on above: Order Comment: Speci men Type: BLOOD SPECIMENOrdering Facility: [facility] Address: [address] [place] [address] Performed By: #### 5 7021-8 ####[facility] [id number] [place] [address] [place] Eosinophils/100 WBC (Bld) 0.8 % Normal [facility] Comment on above: Order Comment: Speci men Type: BLOOD SPECIMENOrdering Facility: [facility] Address: [address] [place] [address] Performed By: #### 5 7021-8 ####[facility] [id number] [place] [address] [place] Erythrocyte distribution width (RBC) [Ratio] 12.6 % Normal 11.5-15.0 [facility] Comment on above: Order Comment: Speci men Type: BLOOD SPECIMENOrdering Facility: [facility] Address: [address] [place] [address] Performed By: #### 5 7021-8 ####[facility]ENCYNCL[facility] [id number] [place] [address] [place] Hematocrit (Bld) [Volume fraction] 46.6 % Normal 39.0-51.0 [facility] Comment on above: Order Comment: Speci men Type: BLOOD SPECIMENOrdering Facility: [facility] Address: [address] [place] [address] Performed By: #### 5 7021-8 ####[facility]ENCYNCUIN[facility] [id number] [place] [address] [place] Hemoglobin (Bld) [Mass/Vol] 16.1 g/dL Normal 13.0-17.0 [facility] Comment on above: Order Comment: Speci men Type: BLOOD SPECIMENOrdering Facility: [facility] Address: [address] [place] [address] Performed By: #### 5 7021-8 ####[facility] [id number] [place] [address] [place] Immature granulocytes (Bld) [#/Vol] 0.06 10*3/uL Normal <0.10 [facility] Comment on above: Order Comment: Speci men Type: BLOOD SPECIMENOrdering Facility: [facility] Address: [address] [place] [address] Performed By: #### 5 7021-8 ####[facility]IA [id number] [place] [address] [place] Immature granulocytes/100 WBC (Bld) 0.9 % Normal [facility] Comment on above: Order Comment: Speci men Type: BLOOD SPECIMENOrdering Facility: [facility] Address: [address] [place] [address] Performed By: #### 5 7021-8 ####[facility] [id number] [place] [address] [place] Lymphocytes (Bld) [#/Vol] 2.36 10*3/uL Normal 1.00-4.00 [facility] Comment on above: Order Comment: Speci men Type: BLOOD SPECIMENOrdering Facility: [facility] Address: [address] [place] [address] Performed By: #### 5 7021-8 ####[facility] ANGELBRADA [id number] [address] STATES [facility] Lymphocytes/100 WBC (Bld) 36.1 % Normal [facility] Comment on above: Order Comment: Speci men Type: BLOOD SPECIMENOrdering Facility: [facility] Address: [address] [place] [address] Performed By: #### 5 7021-8 ####[facility] ANGELOAK RIDGEANILA [id number] [place] [address] [place] MCH (RBC) [Entitic mass] 30.4 pg Normal 26.0-34.0 [facility] Comment on above: Order Comment: Speci men Type: BLOOD SPECIMENOrdering Facility: [facility] Address: [address] [place] [address] Performed By: #### 5 7021-8 ####[facility] HOSPITALLAKEISHA [id number] [place] [address] [place] MCHC (RBC) [Mass/Vol] 34.5 g/dL Normal 30.5-36.0 [facility] Comment on above: Order Comment: Speci men Type: BLOOD SPECIMENOrdering Facility: [facility] Address: [address] [place] [address] Performed By: #### 5 7021-8 ####[facility] EM[facility]GENCYANILAA [id number] [place] [address] [place] MCV (RBC) [Entitic vol] 87.9 fL Normal 80.0-100.0 [facility] Comment on above: Order Comment: Speci men Type: BLOOD SPECIMENOrdering Facility: [facility] Address: [address] [place] [address] Performed By: #### 5 7021-8 ####[facility] EMERGENCYCATEA [id number] [place] [address] [place] Monocytes (Bld) [#/Vol] 0.57 10*3/uL Normal <0.87 [facility] Comment on above: Order Comment: Speci men Type: BLOOD SPECIMENOrdering Facility: [facility] Address: [address] [place] [address] Performed By: #### 5 7021-8 ####[facility]ITAL[facility]AKLIA [id number] [place] [address] [place] Monocytes/100 WBC (Bld) 8.7 % Normal [facility] Comment on above: Order Comment: Speci men Type: BLOOD SPECIMENOrdering Facility: [facility] Address: [address] [place] [address] Performed By: #### 5 7021-8 ####[facility] [id number] [place] [address] [place] Neutrophils (Bld) [#/Vol] 3.47 10*3/uL Normal 1.45-7.50 [facility] Comment on above: Order Comment: Speci men Type: BLOOD SPECIMENOrdering Facility: [facility] Address: [address] [place] [address] Performed By: #### 5 7021-8 ####[facility] [id number] [place] [address] [place] Neutrophils/100 WBC (Bld) 53.2 % Normal [facility] Comment on above: Order Comment: Speci men Type: BLOOD SPECIMENOrdering Facility: [facility] Address: [address] [place] [address] Performed By: #### 5 7021-8 ####[facility] [id number] [place] [address] [place] Nucleated RBC (Bld) [#/Vol] 10*3/uL Normal <0.01 [facility] Comment on above: Order Comment: Speci men Type: BLOOD SPECIMENOrdering Facility: [facility] Address: [address] [place] [address] Performed By: #### 5 7021-8 ####[facility]YNCUIN[facility] [id number] [place] [address] [place] Nucleated RBC/100 WBC (Bld) [Ratio] 0.0 /100 WBC Normal [facility] Comment on above: Order Comment: Speci men Type: BLOOD SPECIMENOrdering Facility: [facility] Address: [address] [place] [address] Performed By: #### 5 7021-8 ####[facility] [id number] [place] [address] [place] Platelet mean volume (Bld) [Entitic vol] 9.6 fL Normal 9.0-12.7 [facility] Comment on above: Order Comment: Speci men Type: BLOOD SPECIMENOrdering Facility: [facility] Address: [address] [place] [address] Performed By: #### 5 7021-8 ####[facility]ENCYNCLIA [id number] [place] [address] [place] Platelets (Bld) [#/Vol] 251 10*3/uL Normal 150-400 [facility] Comment on above: Order Comment: Speci men Type: BLOOD SPECIMENOrdering Facility: [facility] Address: [address] [place] [address] Performed By: #### 5 7021-8 ####[facility] B[facility]LEVARDA [id number] [place] [address] [place] RBC (Bld) [#/Vol] 5.30 10*6/uL Normal 4.20-6.00 [facility] Comment on above: Order Comment: Speci men Type: BLOOD SPECIMENOrdering Facility: [facility] Address: [address] [place], [place] [address] Performed By: #### 5 7021-8 ####[facility] LORENZA RICENCLIA [id number] [place] [address] [place] WBC (Bld) [#/Vol] 6.53 10*3/uL Normal 3.70-11.00 [facility] Comment on above: Order Comment: Speci men Type: BLOOD SPECIMENOrdering Facility: [facility] Address: [address] [place], [place] [address] Performed By: #### 5 7021-8 ####[facility] LORENZA RICENCLIA [id number] [address] [place] CNPAvril 03-12-2024 CNPN Telephone (GEOVANI) ZANE BUITRAGO ([id number]) 2 M Date Time Provider Department 03/12/24 NEETA ROBERTSON During your visit today, we recorded the following information about you: Neeta Robertson LISW 03/12/2024 11:32 AM Signed SEMAJ met with pt and mother this date when here for labs. Pt signed pt assistance application for Promacta. SEMAJ successfully faxed this date to [employer] ([employer] reviewing agency) and sent forms to internal scanning. HILLARY Shields-S Allergies As of Date: 03/12/2024 (No Known Allergies) Date Reviewed: 03/06/2024 Reviewed by: Rosa Philip RN - Fully Assessed Reason for Visit: Promacta Patient Assistance [Other] Prescriptions as of 03/12/2024 - predniSONE (DELTASONE) 20 mg tablet Take 20 mg by mouth once daily. - eltrombopag olamine (PROMACTA) 50 mg tablet Take 1 tablet (50 mg) by mouth once daily. Administer on an empty stomach, 1 hour before or 2 hours after a meal. Problem List As Of Date 03/12/2024 Noted Resolved Pityriasis rosea [L42] 01/17/2016 Acute ITP (HCC) [D69.3] 06/25/2023 Chronic ITP (idiopathic thrombocytopenia) (HCC)*09/24/2023 Encounter Status:Closed by NEETA ROBERTSON on 03/12/24 Normal [facility] CBC W Auto Differential pane l (Bld)on 03-05-2024 Basophils (Bld) [#/Vol] 0.03 10*3/uL Normal <0.11 [facility] Comment on above: Order Comment: Speci men Type: BLOOD SPECIMENOrdering Facility: [facility] Address: [address] [place] [address] Performed By: #### 5 7021-8 ####[facility] BOULEVARDMarybel [id number] [place] [address] [place] Basophils/100 WBC (Bld) 0.4 % Normal [facility] Comment on above: Order Comment: Speci men Type: BLOOD SPECIMENOrdering Facility: [facility] Address: [address] [place] [address] Performed By: #### 5 7021-8 ####[facility] EMERGENCYPATRICIA [id number] [place] [address] [place] Differential cell count method Nom (Bld) Auto Normal [facility] Comment on above: Order Comment: Speci men Type: BLOOD SPECIMENOrdering Facility: [facility] Address: [address] [place] [address] Performed By: #### 5 7021-8 ####[facility]ITALLIA [id number] [place] [address] [place] Eosinophils (Bld) [#/Vol] 0.05 10*3/uL Normal <0.46 [facility] Comment on above: Order Comment: Speci men Type: BLOOD SPECIMENOrdering Facility: [facility] Address: [address] [place] [address] Performed By: #### 5 7021-8 ####[facility] ANGELBRADA [id number] [place] [address] [place] Eosinophils/100 WBC (Bld) 0.7 % Normal [facility] Comment on above: Order Comment: Speci men Type: BLOOD SPECIMENOrdering Facility: [facility] Address: [address] [place] [address] Performed By: #### 5 7021-8 ####[facility]YNCL[facility] [id number] [place] [address] [place] Erythrocyte distribution width (RBC) [Ratio] 12.4 % Normal 11.5-15.0 [facility] Comment on above: Order Comment: Speci men Type: BLOOD SPECIMENOrdering Facility: [facility] Address: [address] [place] [address] Performed By: #### 5 7021-8 ####[facility] [id number] [place] [address] [place] Hematocrit (Bld) [Volume fraction] 41.5 % Normal 39.0-51.0 [facility] Comment on above: Order Comment: Speci men Type: BLOOD SPECIMENOrdering Facility: [facility] Address: [address] [place] [address] Performed By: #### 5 7021-8 ####[facility]ENCYNCLIA [id number] [place] [address] [place] Hemoglobin (Bld) [Mass/Vol] 14.6 g/dL Normal 13.0-17.0 [facility] Comment on above: Order Comment: Speci men Type: BLOOD SPECIMENOrdering Facility: [facility] Address: [address] [place] [address] Performed By: #### 5 7021-8 ####[facility] MILLTOWNCLIA [id number] [place] [address] [place] Immature granulocytes (Bld) [#/Vol] 0.05 10*3/uL Normal <0.10 [facility] Comment on above: Order Comment: Speci men Type: BLOOD SPECIMENOrdering Facility: [facility] Address: [address] [place] [address] Performed By: #### 5 7021-8 ####[facility]ITALWNCLIA [id number] [place] [address] [place] Immature granulocytes/100 WBC (Bld) 0.7 % Normal [facility] Comment on above: Order Comment: Speci men Type: BLOOD SPECIMENOrdering Facility: [facility] Address: [address] [place] [address] Performed By: #### 5 7021-8 ####[facility] HOSPITALLIA [id number] [place] [address] [place] Lymphocytes (Bld) [#/Vol] 2.99 10*3/uL Normal 1.00-4.00 [facility] Comment on above: Order Comment: Speci men Type: BLOOD SPECIMENOrdering Facility: [facility] Address: [address] [place] [address] Performed By: #### 5 7021-8 ####[facility] MILLWNCLIA [id number] [place] [address] [place] Lymphocytes/100 WBC (Bld) 41.9 % Normal [facility] Comment on above: Order Comment: Speci men Type: BLOOD SPECIMENOrdering Facility: [facility] Address: [address] [place] [address] Performed By: #### 5 7021-8 ####[facility] EMERGENCYNCLIA [id number] [place] [address] [place] MCH (RBC) [Entitic mass] 30.9 pg Normal 26.0-34.0 [facility] Comment on above: Order Comment: Speci men Type: BLOOD SPECIMENOrdering Facility: [facility] Address: [address] [place] [address] Performed By: #### 5 7021-8 ####[facility] EMERGENCYPATRICIA [id number] [address] [place] MCHC (RBC) [Mass/Vol] 35.2 g/dL Normal 30.5-36.0 [facility] Comment on above: Order Comment: Speci men Type: BLOOD SPECIMENOrdering Facility: [facility] Address: [address] [place] [address] Performed By: #### 5 7021-8 ####[facility] EMERGENCYNCMARCIAL [id number] [address] [place] MCV (RBC) [Entitic vol] 87.7 fL Normal 80.0-100.0 [facility] Comment on above: Order Comment: Speci men Type: BLOOD SPECIMENOrdering Facility: [facility] Address: [address] [place] [address] Performed By: #### 5 7021-8 ####[facility] EMERGENCYPATRICIA [id number] [place] [address] [place] Monocytes (Bld) [#/Vol] 0.40 10*3/uL Normal <0.87 [facility] Comment on above: Order Comment: Speci men Type: BLOOD SPECIMENOrdering Facility: [facility] Address: [address] [place] [address] Performed By: #### 5 7021-8 ####[facility] EMERGENCYNCLIMarybel [id number] [address] [place] Monocytes/100 WBC (Bld) 5.6 % Normal [facility] Comment on above: Order Comment: Speci men Type: BLOOD SPECIMENOrdering Facility: [facility] Address: [address] [place] [address] Performed By: #### 5 7021-8 ####[facility] ANGELO[facility] RIDGECATELIA [id number] [place] [address] [place] Neutrophils (Bld) [#/Vol] 3.62 10*3/uL Normal 1.45-7.50 [facility] Comment on above: Order Comment: Speci men Type: BLOOD SPECIMENOrdering Facility: [facility] Address: [address] [place] [address] Performed By: #### 5 7021-8 ####[facility] BOULEVARDA [id number] [place] [address] [place] Neutrophils/100 WBC (Bld) 50.7 % Normal [facility] Comment on above: Order Comment: Speci men Type: BLOOD SPECIMENOrdering Facility: [facility] Address: [address] [place] [address] Performed By: #### 5 7021-8 ####[facility] BOULEVARDA [id number] [place] [address] [place] Nucleated RBC (Bld) [#/Vol] 10*3/uL Normal <0.01 [facility] Comment on above: Order Comment: Speci men Type: BLOOD SPECIMENOrdering Facility: [facility] Address: [address] [place] [address] Performed By: #### 5 7021-8 ####[facility]ARDA [id number] [place] [address] [place] Nucleated RBC/100 WBC (Bld) [Ratio] 0.0 /100 WBC Normal [facility] Comment on above: Order Comment: Speci men Type: BLOOD SPECIMENOrdering Facility: [facility] Address: [address] [place] [address] Performed By: #### 5 7021-8 ####[facility] EM[facility]ENCYNCLIA [id number] [place] [address] [place] Platelet mean volume (Bld) [Entitic vol] 10.9 fL Normal 9.0-12.7 [facility] Comment on above: Order Comment: Speci men Type: BLOOD SPECIMENOrdering Facility: [facility] Address: [address] [place] [address] Performed By: #### 5 7021-8 ####[facility] EM[facility]ENCYNCLIA [id number] [place] [address] [place] Platelets (Bld) [#/Vol] 132 10*3/uL Low 150-400 [facility] Comment on above: Order Comment: Speci men Type: BLOOD SPECIMENOrdering Facility: [facility] Address: [address] [place] [address] Result Comment: No c lot detected. Performed By: #### 5 7021-8 ####[facility] [id number] [place] [address] [place] RBC (Bld) [#/Vol] 4.73 10*6/uL Normal 4.20-6.00 [facility] Comment on above: Order Comment: Speci men Type: BLOOD SPECIMENOrdering Facility: [facility] Address: [address] [place] [address] Performed By: #### 5 7021-8 ####[facility]ENCYNCLIA [id number] [place] [address] [place] WBC (Bld) [#/Vol] 7.14 10*3/uL Normal 3.70-11.00 [facility] Comment on above: Order Comment: Speci men Type: BLOOD SPECIMENOrdering Facility: [facility] Address: [address] [place] [address] Performed By: #### 5 7021-8 ####[facility] LORENZA MEDINA [id number] [address] OF [facility] Rangel 03-05-2024 CNPN Telephone (HEMAWS) ZANE BUITRAGO ([id number]) 2 M Date Time Provider Department 03/05/24 KILLIAN ELAM During your visit today, we recorded the following information about you: Killian Elam DO 03/05/2024 8:08 PM Signed Platelets decreasing again. Can we give a dose of IVIG Saturday?? Rituximab soon as able. Also, is he going to get Promacta? If not, then needs to start Nplate injections. DO Kiana Low Melanie, LPN 03/06/2024 9:48 AM Addendum I spoke with the specialty pharmacy and they will reach out to [facility] to see if they have a decision on Promacta free drug program. Chemo nurse has called patient's mother several times to see if she can bring him in today for IVIG- no return call. Katherine Walsh LPN 0933- Patient's mother is on her way to bring patient here for IVIG. PSS- Rituximab soon as able. ANIRUDH Fenton Haley 03/06/2024 10:24 AM Signed PT added on for appt for IVIG today and rituxan was added to 03/19 and get permission from chemo nurse to do so. Spoke with patient and patient mother and they are aware of time change on 03/19. Thanks, Amanda Robb 03/10/2024 3:36 PM Signed Any word on Promacta/starting N'Plate? Bernadette Edwards LPN 03/10/2024 3:48 PM Signed Patient needs to sign a Patient Assistance form that Neeta Robertson has in her office. Bernadette Barron LPN Mary Mendes 03/12/2024 10:06 AM Signed Patient has 6/6 Rituxan scheduled per request below. Patient also has 7/1 Q2MO Rituxan scheduled previously. Are we to push out the 7/1 or is 6/6 an extra? Please advise. Katherine Walsh LPN 03/12/2024 10:18 AM Signed 03/19/2024 was an add on. Please leave as scheduled for April. Katherine Walsh LPN Allergies As of Date: 03/05/2024 (No Known Allergies) Date Reviewed: 02/17/2024 Reviewed by: Amanda Rodriguez, AMISH - Fully Assessed Reason for Visit: Results [95] Prescriptions as of 03/12/2024 - predniSONE (DELTASONE) 20 mg tablet Take 20 mg by mouth once daily. - eltrombopag olamine (PROMACTA) 50 mg tablet Take 1 tablet (50 mg) by mouth once daily. Administer on an empty stomach, 1 hour before or 2 hours after a meal. Problem List As Of Date 03/05/2024 Noted Resolved Pityriasis rosea [L42] 01/17/2016 Acute ITP (HCC) [D69.3] 06/25/2023 Chronic ITP (idiopathic thrombocytopenia) (HCC)*09/24/2023 Encounter Status:Closed by KARI RODRIGUEZ on 03/06/24 Normal [facility] CBC W Auto Differential pane l (Bld)on 02-27-2024 Basophils (Bld) [#/Vol] 0.04 10*3/uL Normal <0.11 [facility] Comment on above: Order Comment: Speci men Type: BLOOD SPECIMENOrdering Facility: [facility] Address: [address] [place] [address] Performed By: #### 5 7021-8 ####[facility] [id number] [place] [address] [place] Basophils/100 WBC (Bld) 0.5 % Normal [facility] Comment on above: Order Comment: Speci men Type: BLOOD SPECIMENOrdering Facility: [facility] Address: [address] [place] [address] Performed By: #### 5 7021-8 ####[facility] EMERGENCYCATELIA [id number] [place] [address] [place] [facility] Differential cell count method Nom (Bld) Auto Normal [facility] Comment on above: Order Comment: Speci men Type: BLOOD SPECIMENOrdering Facility: [facility] Address: [address] [place] [address] Performed By: #### 5 7021-8 ####[facility] EMERGENCYNCA [id number] [place] [address] [place] Eosinophils (Bld) [#/Vol] 0.04 10*3/uL Normal <0.46 [facility] Comment on above: Order Comment: Speci men Type: BLOOD SPECIMENOrdering Facility: [facility] Address: [address] [place] [address] Performed By: #### 5 7021-8 ####[facility] EM[facility]ENCYNCLIA [id number] [place] [address] [place] Eosinophils/100 WBC (Bld) 0.5 % Normal [facility] Comment on above: Order Comment: Speci men Type: BLOOD SPECIMENOrdering Facility: [facility] Address: [address] [place] [address] Performed By: #### 5 7021-8 ####[facility] HOSPITALLIA [id number] [place] [address] [place] Erythrocyte distribution width (RBC) [Ratio] 12.4 % Normal 11.5-15.0 [facility] Comment on above: Order Comment: Speci men Type: BLOOD SPECIMENOrdering Facility: [facility] Address: [address] [place] [address] Performed By: #### 5 7021-8 ####[facility] EMERGENCYNCLIA [id number] [place] [address] [place] Hematocrit (Bld) [Volume fraction] 42.0 % Normal 39.0-51.0 [facility] Comment on above: Order Comment: Speci men Type: BLOOD SPECIMENOrdering Facility: [facility] Address: [address] [place] [address] Performed By: #### 5 7021-8 ####[facility] ANGELOAK RIDGEPATRICIA [id number] [place] [address] [place] Hemoglobin (Bld) [Mass/Vol] 14.6 g/dL Normal 13.0-17.0 [facility] Comment on above: Order Comment: Speci men Type: BLOOD SPECIMENOrdering Facility: [facility] Address: [address] [place] [address] Performed By: #### 5 7021-8 ####[facility] EM[facility]ENCYPATRICIA [id number] [place] [address] [place] Immature granulocytes (Bld) [#/Vol] 0.04 10*3/uL Normal <0.10 [facility] Comment on above: Order Comment: Speci men Type: BLOOD SPECIMENOrdering Facility: [facility] Address: [address] [place] [address] Performed By: #### 5 7021-8 ####[facility] EM[facility]ENCYPATRICIA [id number] [place] [address] [place] Immature granulocytes/100 WBC (Bld) 0.5 % Normal [facility] Comment on above: Order Comment: Speci men Type: BLOOD SPECIMENOrdering Facility: [facility] Address: [address] [place] [address] Performed By: #### 5 7021-8 ####[facility] HOSPITALLIA [id number] [place] [address] [place] Lymphocytes (Bld) [#/Vol] 3.02 10*3/uL Normal 1.00-4.00 [facility] Comment on above: Order Comment: Speci men Type: BLOOD SPECIMENOrdering Facility: [facility] Address: [address] [place] [address] Performed By: #### 5 7021-8 ####[facility] EMERGENCYNCLAKEISHA [id number] [place] [address] [place] Lymphocytes/100 WBC (Bld) 36.7 % Normal [facility] Comment on above: Order Comment: Speci men Type: BLOOD SPECIMENOrdering Facility: [facility] Address: [address] [place] [address] Performed By: #### 5 7021-8 ####[facility]ENCYNCUINTA[facility] [id number] [place] [address] [place] MCH (RBC) [Entitic mass] 30.5 pg Normal 26.0-34.0 [facility] Comment on above: Order Comment: Speci men Type: BLOOD SPECIMENOrdering Facility: [facility] Address: [address] [place] [address] Performed By: #### 5 7021-8 ####[facility] [id number] [place] [address] [place] MCHC (RBC) [Mass/Vol] 34.8 g/dL Normal 30.5-36.0 [facility] Comment on above: Order Comment: Speci men Type: BLOOD SPECIMENOrdering Facility: [facility] Address: [address] [place] [address] Performed By: #### 5 7021-8 ####[facility]GENCYNCUINTAH [facility] [id number] [place] [address] [place] MCV (RBC) [Entitic vol] 87.9 fL Normal 80.0-100.0 [facility] Comment on above: Order Comment: Speci men Type: BLOOD SPECIMENOrdering Facility: [facility] Address: [address] [place] [address] Performed By: #### 5 7021-8 ####[facility] MILLTOWNCLIA [id number] [place] [address] [place] Monocytes (Bld) [#/Vol] 0.43 10*3/uL Normal <0.87 [facility] Comment on above: Order Comment: Speci men Type: BLOOD SPECIMENOrdering Facility: [facility] Address: [address] [place] [address] Performed By: #### 5 7021-8 ####[facility] MILLTOWNCLIA [id number] [place] [address] [place] Monocytes/100 WBC (Bld) 5.2 % Normal [facility] Comment on above: Order Comment: Speci men Type: BLOOD SPECIMENOrdering Facility: [facility] Address: [address] [place] [address] Performed By: #### 5 7021-8 ####[facility]ITALWNCLIA [id number] [place] [address] [place] Neutrophils (Bld) [#/Vol] 4.66 10*3/uL Normal 1.45-7.50 [facility] Comment on above: Order Comment: Speci men Type: BLOOD SPECIMENOrdering Facility: [facility] Address: [address] [place] [address] Performed By: #### 5 7021-8 ####[facility] MILLTOWNCLIA [id number] [place] [address] [place] Neutrophils/100 WBC (Bld) 56.6 % Normal [facility] Comment on above: Order Comment: Speci men Type: BLOOD SPECIMENOrdering Facility: [facility] Address: [address] [place] [address] Performed By: #### 5 7021-8 ####[facility] MILLTOWNCLIA [id number] [place] [address] [place] Nucleated RBC (Bld) [#/Vol] 10*3/uL Normal <0.01 [facility] Comment on above: Order Comment: Speci men Type: BLOOD SPECIMENOrdering Facility: [facility] Address: [address] [place] [address] Performed By: #### 5 7021-8 ####[facility] ANGELOAK RIDGECATELIA [id number] [place] [address] [place] Nucleated RBC/100 WBC (Bld) [Ratio] 0.0 /100 WBC Normal [facility] Comment on above: Order Comment: Speci men Type: BLOOD SPECIMENOrdering Facility: [facility] Address: [address] [place] [address] Performed By: #### 5 7021-8 ####[facility] EMERGENCYNCMarybel [id number] [place] [address] [place] Platelet mean volume (Bld) [Entitic vol] 10.6 fL Normal 9.0-12.7 [facility] Comment on above: Order Comment: Speci men Type: BLOOD SPECIMENOrdering Facility: [facility] Address: [address] [place] [address] Performed By: #### 5 7021-8 ####[facility] EMERGENCYNCLAKEISHAA [id number] [place] [address] [place] Platelets (Bld) [#/Vol] 158 10*3/uL Normal 150-400 [facility] Comment on above: Order Comment: Speci men Type: BLOOD SPECIMENOrdering Facility: [facility] Address: [address] [place] [address] Performed By: #### 5 7021-8 ####[facility] EM[facility]ENCYNCLIA [id number] [place] [address] [place] RBC (Bld) [#/Vol] 4.78 10*6/uL Normal 4.20-6.00 [facility] Comment on above: Order Comment: Speci men Type: BLOOD SPECIMENOrdering Facility: [facility] Address: [address] [place] [address] Performed By: #### 5 7021-8 ####[facility] BOULEVARDA [id number] [place] [address] [place] WBC (Bld) [#/Vol] 8.23 10*3/uL Normal 3.70-11.00 [facility] Comment on above: Order Comment: Speci men Type: BLOOD SPECIMENOrdering Facility: [facility] Address: [address] [place] [address] Performed By: #### 5 7021-8 ####[facility] [id number] [place] [address] [place] CNCOon 02-27-2024 CNCO Letter Text Normal [facility] CBC W Auto Differential pane l (Bld)on 02-20-2024 Basophils (Bld) [#/Vol] 0.04 10*3/uL Normal <0.11 [facility] Comment on above: Order Comment: Speci men Type: BLOOD SPECIMEN [facility] Address: [address] [place] [address] Performed By: #### 5 7021-8 #### [facility] CLIA [id number] [address] [place] [address] [place] Basophils/100 WBC (Bld) 0.5 % Normal [facility] Comment on above: Order Comment: Speci men Type: BLOOD SPECIMEN [facility] Address: [address] [place] [address] Performed By: #### 5 7021-8 #### [facility] CLIA [id number] [address] [place] [address] [place] Differential cell count method Nom (Bld) Auto Normal [facility] Comment on above: Order Comment: Speci men Type: BLOOD SPECIMEN [facility] Address: [address] [place] [address] Performed By: #### 5 7021-8 #### [facility] CLIA [id number] [address] [place] [address] [place] Eosinophils (Bld) [#/Vol] 10*3/uL Normal <0.46 [facility] Comment on above: Order Comment: Speci men Type: BLOOD SPECIMEN [facility] Address: [address] [place] [address] Performed By: #### 5 7021-8 #### [facility] CLIA [id number] [address] [place] [address] [place] Eosinophils/100 WBC (Bld) 0.2 % Normal [facility] Comment on above: Order Comment: Speci men Type: BLOOD SPECIMEN [facility] Address: [address] [place] [address] Performed By: #### 5 7021-8 #### [facility] CLIA [id number] [address] [place] [address] [place] Erythrocyte distribution width (RBC) [Ratio] 11.9 % Normal 11.5-15.0 [facility] Comment on above: Order Comment: Speci men Type: BLOOD SPECIMEN [facility] Address: [address] [place] [address] Performed By: #### 5 7021-8 #### [facility] CLIA [id number] [address] [place] [address] [place] Hematocrit (Bld) [Volume fraction] 45.1 % Normal 39.0-51.0 [facility] Comment on above: Order Comment: Speci men Type: BLOOD SPECIMEN [facility] Address: [address] [place] [address] Performed By: #### 5 7021-8 #### [facility] CLIA [id number] [address] [place] [address] [place] Hemoglobin (Bld) [Mass/Vol] 15.8 g/dL Normal 13.0-17.0 [facility] Comment on above: Order Comment: Speci men Type: BLOOD SPECIMEN [facility] Address: [address] [place] [address] Performed By: #### 5 7021-8 #### [facility] CLIA [id number] [address] [place] [address] [place] Immature granulocytes (Bld) [#/Vol] 0.03 10*3/uL Normal <0.10 [facility] Comment on above: Order Comment: Speci men Type: BLOOD SPECIMEN [facility] Address: [address] [place] [address] Performed By: #### 5 7021-8 #### [facility] CLIA [id number] [address] [place] [address] [place] Immature granulocytes/100 WBC (Bld) 0.4 % Normal [facility] Comment on above: Order Comment: Speci men Type: BLOOD SPECIMEN [facility] Address: [address] [place] [address] Performed By: #### 5 7021-8 #### [facility] CLIA [id number] [address] [place] [address] [place] Lymphocytes (Bld) [#/Vol] 2.89 10*3/uL Normal 1.00-4.00 [facility] Comment on above: Order Comment: Speci men Type: BLOOD SPECIMEN [facility] Address: [address] [place] [address] Performed By: #### 5 7021-8 #### [facility] CLIA [id number] [address] [place] [address] [place] Lymphocytes/100 WBC (Bld) 35.6 % Normal [facility] Comment on above: Order Comment: Speci men Type: BLOOD SPECIMEN [facility] Address: [address] [place] [address] Performed By: #### 5 7021-8 #### [facility] CLIA [id number] [address] [place] [address] [place] MCH (RBC) [Entitic mass] 30.0 pg Normal 26.0-34.0 [facility] Comment on above: Order Comment: Speci men Type: BLOOD SPECIMEN [facility] Address: [address] [place] [address] Performed By: #### 5 7021-8 #### [facility] CLIA [id number] [address] [place] [address] [place] MCHC (RBC) [Mass/Vol] 35.0 g/dL Normal 30.5-36.0 [facility] Comment on above: Order Comment: Speci men Type: BLOOD SPECIMEN [facility] Address: [address] [place] [address] Performed By: #### 5 7021-8 #### [facility] CH[facility]EL[facility] [id number] [address] [place] [address] [place] MCV (RBC) [Entitic vol] 85.6 fL Normal 80.0-100.0 [facility] Comment on above: Order Comment: Speci men Type: BLOOD SPECIMEN [facility] Address: [address] [place] [address] Performed By: #### 5 7021-8 #### [facility] CLIA [id number] [address] [place] [address] [place] Monocytes (Bld) [#/Vol] 0.51 10*3/uL Normal <0.87 [facility] Comment on above: Order Comment: Speci men Type: BLOOD SPECIMEN [facility] Address: [address] [place], [place] [address] [address] Performed By: #### 5 7021-8 #### [facility] CLIA [id number] [address] [place] [address] [place] Monocytes/100 WBC (Bld) 6.3 % Normal [facility] Comment on above: Order Comment: Speci men Type: BLOOD SPECIMEN Ordering Facility: [facility] Address: [address] [place] [address] Performed By: #### 5 7021-8 #### [facility] CLIA [id number] [address] [place] [address] [place] Neutrophils (Bld) [#/Vol] 4.62 10*3/uL Normal 1.45-7.50 [facility] Comment on above: Order Comment: Speci men Type: BLOOD SPECIMEN Ordering Facility: [facility] Address: [address] [place] [id number] Performed By: #### 5 7021-8 #### [facility] CLIA [id number] [address] [place] [address] [place] Neutrophils/100 WBC (Bld) 57.0 % Normal [facility] Comment on above: Order Comment: Speci men Type: BLOOD SPECIMEN Ordering Facility: [facility] Address: [address] [place] [address] Performed By: #### 5 7021-8 #### [facility] CLIA [id number] [address] [place] [address] [place] [place] Nucleated RBC (Bld) [#/Vol] 10*3/uL Normal <0.01 [facility] Comment on above: Order Comment: Speci men Type: BLOOD SPECIMEN Ordering Facility: [facility] Address: [address] [place] [address] Performed By: #### 5 7021-8 #### [facility] CLIA [id number] [address] [place], [place] [address] [place] Nucleated RBC/100 WBC (Bld) [Ratio] 0.0 /100 WBC Normal [facility] Comment on above: Order Comment: Speci men Type: BLOOD SPECIMEN Ordering Facility: [facility] Address: [address] [place] [address] Performed By: #### 5 7021-8 #### [facility] CLIA [id number] [address] [place] [address] [place] Platelet mean volume (Bld) [Entitic vol] 10.8 fL Normal 9.0-12.7 [facility] Comment on above: Order Comment: Speci men Type: BLOOD SPECIMEN Ordering Facility: [facility] Address: [address] [place] [address] Performed By: #### 5 7021-8 #### [facility] CLIA [id number] [address] [place] [address] [place] Platelets (Bld) [#/Vol] 246 10*3/uL Normal 150-400 [facility] Comment on above: Order Comment: Speci men Type: BLOOD SPECIMEN Ordering Facility: [facility] Address: [address] [place] [address] Performed By: #### 5 7021-8 #### [facility] CLIA [id number] [address] [place] [address] [place] RBC (Bld) [#/Vol] 5.27 10*6/uL Normal 4.20-6.00 [facility] Comment on above: Order Comment: Speci men Type: BLOOD SPECIMEN [facility]ing Facility: [facility] Address: [address] [place] [address] Performed By: #### 5 7021-8 #### [facility] CLIA [id number] [address] [place] [address] [place] WBC (Bld) [#/Vol] 8.11 10*3/uL Normal 3.70-11.00 [facility] Comment on above: Order Comment: Prince oliveira Type: BLOOD SPECIMEN [facility]ing Facility: [facility] Address: [address] [place] [address] Performed By: #### 5 7021-8 #### [facility] VISHNU [id number] [address] [place] [id number] [place] CNPNon 02-20-2024 ISABELLAN Telephone (HEMAWS) ZANE BUITRAGO ([id number]) 2 M Date Time Provider Department 02/20/24 KILLIAN ELAM During your visit today, we recorded the following information about you: Katherine Walsh LPN 02/21/2024 8:[address] Elam- platelet count stable. May change Rituxan to every 2 months. Last dose 02/17/2024. Next Rituxan will be due in April. Patient will need to continue weekly CBC here. Please contact Alison at [facility] @ [phone] to notify of appointments. Not sure of release date. ANIRUDH Fenton Melissa 02/21/2024 8:47 AM Signed Schedule updated. Alison notified Katherine Walsh LPN 02/21/2024 8:59 AM Signed Patient to be released from intermediate 03/24/2024. Katherine Walsh LPN Allergies As of Date: 02/20/2024 (No Known Allergies) Date Reviewed: 02/17/2024 Reviewed by: Amanda Rodriguez, AMISH - Fully Assessed Reason for Visit: Appointment [186] Prescriptions as of 02/21/2024 - predniSONE (DELTASONE) 20 mg tablet Take 20 mg by mouth once daily. - eltrombopag olamine (PROMACTA) 50 mg tablet Take 1 tablet (50 mg) by mouth once daily. Administer on an empty stomach, 1 hour before or 2 hours after a meal. Problem List As Of Date 02/20/2024 Noted Resolved Pityriasis rosea [L42] 01/17/2016 Acute ITP (HCC) [D69.3] 06/25/2023 Chronic ITP (idiopathic thrombocytopenia) (HCC)*09/24/2023 Encounter Status:Closed by KATHERINE WALSH on 02/21/24 Normal [facility] CBC W Auto Differential pane l (Bld)on 02-14-2024 Basophils (Bld) [#/Vol] 0.04 10*3/uL Normal <0.11 [facility] Comment on above: Order Comment: Speci men Type: BLOOD SPECIMEN [facility]: [facility] Address: [address] [place] [address] Performed By: #### 5 7021-8 #### [facility] CLIA [id number] [address] [place] [address] [place] Basophils/100 WBC (Bld) 0.4 % Normal [facility] Comment on above: Order Comment: Ofei roxanne Type: BLOOD SPECIMEN [facility] Address: [address] [place] [address] Performed By: #### 5 7021-8 #### [facility] CLIA [id number] [address] [place] [address] [place] Differential cell count method Nom (Bld) Auto Normal [facility] Comment on above: Order Comment: Speci men Type: BLOOD SPECIMEN [facility]ing [facility]: [facility] Address: [address] [place] [address] Performed By: #### 5 7021-8 #### [facility] CLIA [id number] [address] [place] [address] [place] Eosinophils (Bld) [#/Vol] 0.07 10*3/uL Normal <0.46 [facility] Comment on above: Order Comment: Speci men Type: BLOOD SPECIMEN Ordering Facility: [facility] Address: [address] [place] [address] Performed By: #### 5 7021-8 #### [facility] CLIA [id number] [address] [place] [address] [place] Eosinophils/100 WBC (Bld) 0.7 % Normal [facility] Comment on above: Order Comment: Speci men Type: BLOOD SPECIMEN Ordering Facility: [facility] Address: [address] [place], [place] [address] Performed By: #### 5 7021-8 #### [facility] CLIA [id number] [address] [place] [address] [place] Erythrocyte distribution width (RBC) [Ratio] 12.1 % Normal 11.5-15.0 [facility] Comment on above: Order Comment: Speci men Type: BLOOD SPECIMEN [facility] Address: [address] [place] [address] Performed By: #### 5 7021-8 #### [facility] [id number] [address] [place] [address] [place] Hematocrit (Bld) [Volume fraction] 45.6 % Normal 39.0-51.0 [facility] Comment on above: Order Comment: Speci men Type: BLOOD SPECIMEN Ordering Facility: [facility] Address: [address] [place] [address] Performed By: #### 5 7021-8 #### [facility] CLIA [id number] [address] [place] [address] [place] Hemoglobin (Bld) [Mass/Vol] 16.1 g/dL Normal 13.0-17.0 [facility] Comment on above: Order Comment: Speci men Type: BLOOD SPECIMEN [facility]ing [facility] Address: [address] [place], [place] [address] Performed By: #### 5 7021-8 #### [facility] CLIA [id number] [address] [place] [address] [place] Immature granulocytes (Bld) [#/Vol] 0.03 10*3/uL Normal <0.10 [facility] Comment on above: Order Comment: Speci men Type: BLOOD SPECIMEN Order[facility] Address: [address] [place] [address] Performed By: #### 5 7021-8 #### [facility] CLIA [id number] [address] [place] [address] [place] Immature granulocytes/100 WBC (Bld) 0.3 % Normal [facility] Comment on above: Order Comment: Speci men Type: BLOOD SPECIMEN Ordering Facility: [facility] Address: [address] [place] [address] Performed By: #### 5 7021-8 #### [facility] CLIA [id number] [address] [place] [address] [place] Lymphocytes (Bld) [#/Vol] 2.81 10*3/uL Normal 1.00-4.00 [facility] Comment on above: Order Comment: Speci men Type: BLOOD SPECIMEN Ordering Facility: [facility] Address: [address] [place] [address] Performed By: #### 5 7021-8 #### [facility] CLIA [id number] [address] [place] [address] [place] Lymphocytes/100 WBC (Bld) 26.7 % Normal [facility] Comment on above: Order Comment: Speci men Type: BLOOD SPECIMEN Ordering [facility]: [facility] Address: [address] [place] [address] Performed By: #### 5 7021-8 #### [facility] CLIA [id number] [address] [place] [address] [place] MCH (RBC) [Entitic mass] 30.1 pg Normal 26.0-34.0 [facility] Comment on above: Order Comment: Speci men Type: BLOOD SPECIMEN Ordering Facility: [facility] Address: [address] [place] [address] Performed By: #### 5 7021-8 #### [facility] CLIA [id number] [address] [place] [address] [place] MCHC (RBC) [Mass/Vol] 35.3 g/dL Normal 30.5-36.0 [facility] Comment on above: Order Comment: Speci men Type: BLOOD SPECIMEN Ordering Facility: [facility] Address: [address] [place] [address] Performed By: #### 5 7021-8 #### [facility] CLIA [id number] [address] [place] [address] [place] MCV (RBC) [Entitic vol] 85.4 fL Normal 80.0-100.0 [facility] Comment on above: Order Comment: Speci men Type: BLOOD SPECIMEN Ordering Facility: [facility] Address: [address] [place] [address] Performed By: #### 5 7021-8 #### [facility] CLIA [id number] [address] [place] [address] [place] Monocytes (Bld) [#/Vol] 0.67 10*3/uL Normal <0.87 [facility] Comment on above: Order Comment: Speci men Type: BLOOD SPECIMEN Ordering Facility: [facility] Address: [address] [place] [address] Performed By: #### 5 7021-8 #### [facility] CLIA [id number] [address] [place] [address] [place] Monocytes/100 WBC (Bld) 6.4 % Normal [facility] Comment on above: Order Comment: Speci men Type: BLOOD SPECIMEN Ordering Facility[facility] Address: [address] [place] [address] Performed By: #### 5 7021-8 #### [facility] CLIA [id number] [address] [place] [address] [place] Neutrophils (Bld) [#/Vol] 6.90 10*3/uL Normal 1.45-7.50 [facility] Comment on above: Order Comment: Speci men Type: BLOOD SPECIMEN Order[facility] Facility[facility] Address: [address] [place] [address] Performed By: #### 5 7021-8 #### [facility] CLIA [id number] [address] [place] [address] [place] Neutrophils/100 WBC (Bld) 65.5 % Normal [facility] Comment on above: Order Comment: Speci men Type: BLOOD SPECIMEN Order[facility] Address: [address] [place] [address] Performed By: #### 5 7021-8 #### [facility] CLIA [id number] [address] [place] [address] [place] Nucleated RBC (Bld) [#/Vol] 10*3/uL Normal <0.01 [facility] Comment on above: Order Comment: Speci men Type: BLOOD SPECIMEN Order[facility] Address: [address] [place] [address] Performed By: #### 5 7021-8 #### [facility] CLIA [id number] [address] [place] [address] [place] Nucleated RBC/100 WBC (Bld) [Ratio] 0.0 /100 WBC Normal [facility] Comment on above: Order Comment: Speci men Type: BLOOD SPECIMEN Order[facility] Address: [address] [place] [address] Performed By: #### 5 7021-8 #### [facility] CLIA [id number] [address] [place] [address] [place] Platelet mean volume (Bld) [Entitic vol] 10.4 fL Normal 9.0-12.7 [facility] Comment on above: Order Comment: Speci men Type: BLOOD SPECIMEN [facility] Address: [address] [place] [address] Performed By: #### 5 7021-8 #### [facility] CLIA [id number] [address] [place] [address] [place] Platelets (Bld) [#/Vol] 297 10*3/uL Normal 150-400 [facility] Comment on above: Order Comment: Speci men Type: BLOOD SPECIMEN [facility] Address: [address] [place] [address] Performed By: #### 5 7021-8 #### [facility] CLIA [id number] [address] [place] [address] [place] RBC (Bld) [#/Vol] 5.34 10*6/uL Normal 4.20-6.00 [facility] Comment on above: Order Comment: Speci men Type: BLOOD SPECIMEN [facility] Address: [address] [place] [address] Performed By: #### 5 7021-8 #### [facility] CLIA [id number] [address] [place] [address] [place] WBC (Bld) [#/Vol] 10.52 10*3/uL Normal 3.70-11.00 [facility] Comment on above: Order Comment: Speci men Type: BLOOD SPECIMEN [facility] Address: [address] [place] [address] Performed By: #### 5 7021-8 #### [facility] CLIA [id number] [address] [place] [address] [place] CNCOon 02-14-2024 CNCO Letter Text Normal [facility] CNOVSPon 02-14-2024 CNOVSP Visit (SP) Office (HEMAWS) ZANE BUITRAGO ([id number]) 2 M Date Time Provider Department 02/14/24 2:30 PM KILLIAN ELAM During your visit today, we recorded the following information about you: Temperature Pulse Blood pressure Weight 99.8 degrees 133/minute 130/78 68.7 kg Killian Elam DO 02/14/2024 2:58 PM Signed Problems: 1) ITP. 2) Hypofibrinogenemia--re solved. HPI: The patient is an otherwise healthy 23-year-old male whom I saw in consultation at the [facility] ED 05/22/2023 for severe thrombocytopenia and bruising. Per my HPI there: The patient is a 23-year-old male with an unremarkable past medical history. He presented to the ED earlier this afternoon with complaints of bruising. Symptoms have been going on about a month. He was afebrile on presentation. He said for the last month whenever he gets up in the morning he feels exhausted and has all over body aches. Often has to soak in a hot tub to start feeling better. He has been noticing unprovoked bruises all over for the last month. He has not had petechiae. Occasional gum bleeding when he brushes his teeth. No epistaxis or rectal bleeding. He has not had fevers or drenching night sweats. His appetite has been poor and he has lost about 10 to 15 pounds. He endorses that if he lies on his stomach, he develops abdominal pain. He has developed reflux symptoms in the last few days. No nausea or vomiting. He has not had black or bloody stools. Pertinent lab findings were initial platelet count 26,000. Remainder of CBC was normal. No schistocytes observed. Coagulation times normal. Fibrinogen low. D-dimer was normal. Thrombin time was normal. He was started on pulse dose dexamethasone 40 mg daily which she received on Saturday, , Saturday and Saturday of last week. Hospital day 3 platelets had increased to 48,000. 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 COMMENT Flow cytometry, FISH and cytogenetic studies are pending. Clinical correlation and appropriate follow up are necessary. Case has been reviewed in consultation with Dr. Hernandes who concurs with the above diagnosis. BONE MARROW STUDY Slides are reviewed. CBC DATE: 05/23/23 WBC 8.18; RBC 4.99; HGB 15.5; HCT 45.3; MCV 98.8; RDW 12.8; PLTS 48,000 SEGS 80.9%; LYMPHS 14.5%; MONOS 3.9%; EOS 0.0%; BASOS 0.1%; Immature granulocytes 0.6% PERIPHERAL SMEAR: Submitted. RBC: Normocytic and normochromic. WBC: Unremarkable. The WBC count is compatible to as reported above. PLTS: Markedly decreased. BONE MARROW ASPIRATE DIFFERENTIAL: 200 cell count. Blasts % (normal 0-2): 0 Promyelocytes % (normal 1-5): 2 Myelocytes and metamyelocytes % (normal 17-41): 24 Bands and Segs % (normal 15-32): 35 Eos % (normal 1-6): 3 Basos % (normal 0-1): 0 Monocytes % (normal 0-4): 2 Erythroid Precursors % (normal 17-35): 22 Lymphocytes % (normal 7-13): 12 Plasma Cells % (normal 0-2): 0 ASPIRATE FINDINGS: Site: Not specified Spicular, Cellular M/E ratio: 2.9 (Normal 1.5-4.0) Megakaryocytes: Present. Hypolobated and micromegakaryocytes are noted. Erythropoiesis: Normoblastic. Granulopoiesis: Progressive and unremarkable. Comment: Megakaryocytic dysplasia is noted. CORE BIOPSY FINDINGS: Site: Not specified Adequacy: Limited Comment: The specimen predominantly consists of peripheral blood mixed with a few hematopoietic cells consisting of erythroid, myeloid and megakaryocytes. ASPIRATE CLOT FINDINGS: Site: Not specified Marrow particles: Numerous Cellularity: 50% M/E ratio: Within normal limits. Megakaryocytes: Present and increased in number. Granulomas: Absent. Lymphoid aggregates: Absent. Atypical infiltrates: Absent. SPECIAL STAINS WITH MATCHED CONTROLS: Iron: 1+, atypical or ring sideroblasts are not seen. Reticulin: No significant increase of reticulin fibers is noted. PAS: Highlights myeloid cells and megakaryocytes. Between February and May of this year he had been drinking heavily. Tequila. Approximately half of fifth a day. Started after a break-up with his girlfriend in February. After his ER visit, he cut down. Still drinks sporadically. Previous therapy: 1) Dexamethasone 40 mg x4 days. 2) IVIG. 3) Rituximab. Current therapy: 1) Prednisone 20 mg daily started 06/11. Started prednisone 06/11 for platelet count of 17,000. Had increased to 89,000-week later but a week after that decline to 28,000. Received IVIG 1 g/day x2 days 06/26 and 06/27. Tolerated well. Presents for ongoing hematologic management. Interim history: He is back in intermediate until mid March. One bruise right side but thinks it is from the bunk he has been sleeping on. No unusual bleeding. PMH, (more content not included)... Normal [facility] Comprehensive metabolic 2000 panelon 02-14-2024 Albumin [Mass/Vol] 5.0 g/dL High 3.9-4.9 [facility] Comment on above: Order Comment: Prince oliveira Type: BLOOD SPECIMENOrdering Facility: [facility] Address: [address] [place], [place] [address] Performed By: #### 2 4323-8 ####[facility] [id number] [place] [address] [place] ALP [Catalytic activity/Vol] 42 U/L Normal 38-113 [facility] Comment on above: Order Comment: Prince oliveira Type: BLOOD SPECIMENOrdering Facility: [facility] Address: [address] [place] [address] Performed By: #### 2 4323-8 ####[facility] [id number] [place] [address] [place] ALT [Catalytic activity/Vol] 10 U/L Normal 10-54 [facility] Comment on above: Order Comment: Speci men Type: BLOOD SPECIMENOrdering Facility: [facility] Address: [address] [place] [address] Performed By: #### 2 4323-8 ####[facility] LOR[facility] LIVIAWNCLIA [id number] [place] [address] [place] Anion gap [Moles/Vol] 11 mmol/L Normal 9-18 [facility] Comment on above: Order Comment: Speci men Type: BLOOD SPECIMENOrdering Facility: [facility] Address: [address] [place] [address] Performed By: #### 2 4323-8 ####[facility] ANGELWNCLIA [id number] [place] [address] [place] AST [Catalytic activity/Vol] 9 U/L Low 14-40 [facility] Comment on above: Order Comment: Speci men Type: BLOOD SPECIMENOrdering Facility: [facility] Address: [address] [place] [address] Performed By: #### 2 4323-8 ####[facility] ANGELOAK RIDGENCLIA [id number] [place] [address] [place] Bilirubin [Mass/Vol] 1.1 mg/dL Normal 0.2-1.3 [facility] Comment on above: Order Comment: Speci men Type: BLOOD SPECIMENOrdering Facility: [facility] Address: [address] [place] [address] Performed By: #### 2 4323-8 ####[facility] LORENZA MILLTOWNCLIA [id number] [place] [address] [place] Calcium [Mass/Vol] 9.9 mg/dL Normal 8.5-10.2 [facility] Comment on above: Order Comment: Speci men Type: BLOOD SPECIMENOrdering Facility: [facility] Address: [address] [place] [address] Performed By: #### 2 4323-8 ####[facility] MILLTOWNCLIA [id number] [place] [address] [place] Chloride [Moles/Vol] 101 mmol/L Normal 97-105 [facility] Comment on above: Order Comment: Speci men Type: BLOOD SPECIMENOrdering Facility: [facility] Address: [address] [place] [address] Performed By: #### 2 4323-8 ####[facility] EMERGENCYNCLIA [id number] [place] [address] [place] CO2 [Moles/Vol] 23 mmol/L Normal 22-30 [facility] Comment on above: Order Comment: Speci men Type: BLOOD SPECIMENOrdering Facility: [facility] Address: [address] [place] [address] Performed By: #### 2 4323-8 ####[facility] H[facility]IT[facility] [id number] [place] [address] [place] Creatinine [Mass/Vol] 1.01 mg/dL Normal 0.73-1.22 [facility] Comment on above: Order Comment: Speci men Type: BLOOD SPECIMENOrdering Facility: [facility] Address: [address] [place] [address] Performed By: #### 2 4323-8 ####[facility] EMERGENCYNCLIA [id number] [address] [facility] Creatinine and Glomerular filtration rate.predicted panel (S/P/Bld) 108 mL/min/1.73m??? Normal >=60 [facility] Comment on above: Order Comment: Speci men Type: BLOOD SPECIMENOrdering Facility: [facility] Address: [address] [place] [address] Result Comment: Camila mated Glomerular Filtration Rate (eGFR) is calculated using the 2020 CKD-EPI creatinine equation. This equation utilizes serum creatinine, sex, and age as parameters. The creatinine assay has traceable calibration to isotope dilution-mass spectrometry. Refer to KDIGO guidelines for clinical interpretation. In patients with unstable renal function, e.g. those with acute kidney injury, the eGFR may not accurately reflect actual GFR. Performed By: #### 2 4323-8 ####[facility] LORENZA MILLTOWNCLIA [id number] [place] [address] [place] Glucose [Mass/Vol] 127 mg/dL High 74-99 [facility] Comment on above: Order Comment: Speci men Type: BLOOD SPECIMENOrdering Facility: [facility] Address: [address] [place], [place] [address] Result Comment: The [place] Diabetes [employer] (ADA) provides guidance for cutoff values for fasting glucose and random glucose. The ADA defines fasting as no caloric intake for at least 8 hours. Fasting plasma glucose results between 100 to 125 mg/dL indicate increased risk for diabetes (prediabetes). Fasting plasma glucose results greater than or equal to 126 mg/dL meet the criteria for diagnosis of diabetes. In the absence of unequivocal hyperglycemia, results should be confirmed by repeat testing. In a patient with classic symptoms of hyperglycemia or hyperglycemic crisis, random plasma glucose results greater than or equal to 200 mg/dL meet the criteria for diagnosis of diabetes. Reference: Standards of Medical Care in Diabetes 2016, [place] [employer]. Diabetes Care. 2016.39(Suppl 1). Performed By: #### 2 4323-8 ####[facility] MILLTOWNCLIA [id number] [place] [address] [place] Potassium [Moles/Vol] 3.7 mmol/L Normal 3.7-5.1 [facility] Comment on above: Order Comment: Speci men Type: BLOOD SPECIMENOrdering Facility: [facility] Address: [address] [place] [address] Performed By: #### 2 4323-8 ####[facility] MILLTOWNCLIA [id number] [place] [address] [place] Protein [Mass/Vol] 8.0 g/dL Normal 6.3-8.0 [facility] Comment on above: Order Comment: Speci men Type: BLOOD SPECIMENOrdering Facility: [facility] Address: [address] [place] [address] Performed By: #### 2 4323-8 ####[facility] ANGELWNCLIA [id number] [place] [address] [place] Sodium [Moles/Vol] 135 mmol/L Low 136-144 [facility] Comment on above: Order Comment: Speci men Type: BLOOD SPECIMENOrdering Facility: [facility] Address: [address] [place] [address] Performed By: #### 2 4323-8 ####[facility] [id number] [place] [address] [place] Urea nitrogen [Mass/Vol] 21 mg/dL Normal 9-24 [facility] Comment on above: Order Comment: Speci men Type: BLOOD SPECIMENOrdering Facility: [facility] Address: [address] [place] [address] Performed By: #### 2 4323-8 ####[facility] [id number] [address] [place] CNCOon 02-12-2024 CNCO Letter Text Normal [facility] CNPAvril 02-10-2024 ISABELLAN Telephone (GEOVANI) ZANE BUITRAGO ([id number]) 2 M Date Time Provider Department 02/10/24 KILLIAN ELAM During your visit today, we recorded the following information about you: Katherine Walsh LPN 02/10/2024 11:04 AM Addendum Received a call from Alison from [facility]. Patient is in intermediate. She wanted clarification on patient's prednisone. Currently patient is to be taking prednisone 20 mg daily. I also gave Alison a list of patient's upcoming appointment dates and times. Alison was unsure how long patient would be in but did confirm upcoming appointments. Alison- [facility]- [phone]. Katherine Walsh LPN Allergies As of Date: 02/10/2024 (No Known Allergies) Date Reviewed: 01/20/2024 Reviewed by: Belen Gordon, AMISH - Fully Assessed Reason for Visit: Patient Update [9844] Cmt: Alison at [facility] [phone]. Prescriptions as of 02/10/2024 - eltrombopag olamine (PROMACTA) 50 mg tablet Take 1 tablet (50 mg) by mouth once daily. Administer on an empty stomach, 1 hour before or 2 hours after a meal. - ondansetron (ZOFRAN) 8 mg tablet Take 1 tablet by mouth every 12 hours as needed for nausea/vomiting. - omeprazole (PRILOSEC) 20 mg capsule Take 2 capsules by mouth once daily. - predniSONE (DELTASONE) 20 mg tablet Take 3 tablets by mouth once daily for 21 days, THEN 2.5 tablets once daily for 21 days, THEN 2 tablets once daily for 21 days, THEN 1.5 tablets once daily for 21 days, THEN 1 tablet once daily for 21 days, THEN 0.5 tablets once daily for 21 days. - sulfamethoxazole-trime thoprim (BACTRIM DS) 800-160 mg per tablet Take 1 tablet every Saturday, Saturday and Saturday. Problem List As Of Date 02/10/2024 Noted Resolved Pityriasis rosea [L42] 01/17/2016 Acute ITP (HCC) [D69.3] 06/25/2023 Chronic ITP (idiopathic thrombocytopenia) (HCC)*09/24/2023 Encounter Status:Closed by KATHERINE WALSH on 02/10/24 Normal [facility] CBC W Auto Differential pane l (Bld)on 02-06-2024 Basophils (Bld) [#/Vol] 0.03 10*3/uL Normal <0.11 [facility] Comment on above: Order Comment: Speci men Type: BLOOD SPECIMEN [facility] Address: [address] [place] [address] Performed By: #### 5 7021-8 #### [facility] CLIA [id number] [address] [place] [address] [place] Basophils/100 WBC (Bld) 0.5 % Normal [facility] Comment on above: Order Comment: Speci men Type: BLOOD SPECIMEN [facility] Address: [address] [place] [address] Performed By: #### 5 7021-8 #### [facility] CLIA [id number] [address] [place] [address] [place] Differential cell count method Nom (Bld) Auto Normal [facility] Comment on above: Order Comment: Speci men Type: BLOOD SPECIMEN [facility] Address: [address] [place] [address] Performed By: #### 5 7021-8 #### [facility] CLIA [id number] [address] [place] [address] [place] Eosinophils (Bld) [#/Vol] 0.06 10*3/uL Normal <0.46 [facility] Comment on above: Order Comment: Speci men Type: BLOOD SPECIMEN [facility] Address: [address] [place] [address] Performed By: #### 5 7021-8 #### [facility] CLIA [id number] [address] [place] [address] [place] Eosinophils/100 WBC (Bld) 0.9 % Normal [facility] Comment on above: Order Comment: Speci men Type: BLOOD SPECIMEN [facility] Address: [address] [place] [address] Performed By: #### 5 7021-8 #### [facility] CLIA [id number] [address] [place] [address] [place] Erythrocyte distribution width (RBC) [Ratio] 12.2 % Normal 11.5-15.0 [facility] Comment on above: Order Comment: Speci men Type: BLOOD SPECIMEN [facility] Address: [address] [place] [address] Performed By: #### 5 7021-8 #### [facility] CLIA [id number] [address] [place] [address] [place] Hematocrit (Bld) [Volume fraction] 41.1 % Normal 39.0-51.0 [facility] Comment on above: Order Comment: Speci men Type: BLOOD SPECIMEN [facility] Address: [address] [place] [address] Performed By: #### 5 7021-8 #### [facility] CHAPELIA [id number] [address] [place] [address] [place] Hemoglobin (Bld) [Mass/Vol] 13.9 g/dL Normal 13.0-17.0 [facility] Comment on above: Order Comment: Speci men Type: BLOOD SPECIMEN [facility] Address: [address] [place] [address] Performed By: #### 5 7021-8 #### [facility] CLIA [id number] [address] [place] [address] [place] Immature granulocytes (Bld) [#/Vol] 10*3/uL Normal <0.10 [facility] Comment on above: Order Comment: Speci men Type: BLOOD SPECIMEN [facility] Address: [address] [place] [address] Performed By: #### 5 7021-8 #### [facility] CLIA [id number] [address] [place] [address] [place] Immature granulocytes/100 WBC (Bld) 0.2 % Normal [facility] Comment on above: Order Comment: Speci men Type: BLOOD SPECIMEN [facility] Address: [address] [place] [address] Performed By: #### 5 7021-8 #### [facility] CLIA [id number] [address] [place] [address] [place] Lymphocytes (Bld) [#/Vol] 2.88 10*3/uL Normal 1.00-4.00 [facility] Comment on above: Order Comment: Speci men Type: BLOOD SPECIMEN [facility] Address: [address] [place] [address] Performed By: #### 5 7021-8 #### [facility] CLIA [id number] [address] [place] [address] [place] Lymphocytes/100 WBC (Bld) 44.6 % Normal [facility] Comment on above: Order Comment: Speci men Type: BLOOD SPECIMEN [facility] Address: [address] [place] [address] Performed By: #### 5 7021-8 #### [facility] CLIA [id number] [address] [place] [address] [place] MCH (RBC) [Entitic mass] 30.5 pg Normal 26.0-34.0 [facility] Comment on above: Order Comment: Speci men Type: BLOOD SPECIMEN [facility] Address: [address] [place] [address] Performed By: #### 5 7021-8 #### [facility] CLIA [id number] [address] [place] [address] [place] MCHC (RBC) [Mass/Vol] 33.8 g/dL Normal 30.5-36.0 [facility] Comment on above: Order Comment: Speci men Type: BLOOD SPECIMEN [facility] Address: [address] [place] [address] Performed By: #### 5 7021-8 #### [facility] CLIA [id number] [address] [place] [address] [place] MCV (RBC) [Entitic vol] 90.1 fL Normal 80.0-100.0 [facility] Comment on above: Order Comment: Speci men Type: BLOOD SPECIMEN [facility] Address: [address] [place] [address] Performed By: #### 5 7021-8 #### [facility] CLIA [id number] [address] [place] [address] [place] Monocytes (Bld) [#/Vol] 0.53 10*3/uL Normal <0.87 [facility] Comment on above: Order Comment: Speci men Type: BLOOD SPECIMEN [facility] Address: [address] [place] [address] Performed By: #### 5 7021-8 #### [facility] CLIA [id number] [address] [place] [address] [place] Monocytes/100 WBC (Bld) 8.2 % Normal [facility] Comment on above: Order Comment: Speci men Type: BLOOD SPECIMEN [facility] Address: [address] [place] [address] Performed By: #### 5 7021-8 #### [facility] CLIA [id number] [address] [place] [address] [place] Neutrophils (Bld) [#/Vol] 2.95 10*3/uL Normal 1.45-7.50 [facility] Comment on above: Order Comment: Speci men Type: BLOOD SPECIMEN [facility] Address: [address] [place] [address] Performed By: #### 5 7021-8 #### [facility] CLIA [id number] [address] [place] [address] [place] Neutrophils/100 WBC (Bld) 45.6 % Normal [facility] Comment on above: Order Comment: Speci men Type: BLOOD SPECIMEN [facility] Address: [address] [place] [address] Performed By: #### 5 7021-8 #### [facility] CLIA [id number] [address] [place] [address] [place] Nucleated RBC (Bld) [#/Vol] 10*3/uL Normal <0.01 [facility] Comment on above: Order Comment: Speci men Type: BLOOD SPECIMEN [facility] Address: [address] [place] [address] Performed By: #### 5 7021-8 #### [facility] CLIA [id number] [address] [place] [address] [place] Nucleated RBC/100 WBC (Bld) [Ratio] 0.0 /100 WBC Normal [facility] Comment on above: Order Comment: Speci men Type: BLOOD SPECIMEN [facility] Address: [address] [place] [address] Performed By: #### 5 7021-8 #### [facility] CLIA [id number] [address] [place] [address] [place] Platelet mean volume (Bld) [Entitic vol] 10.7 fL Normal 9.0-12.7 [facility] Comment on above: Order Comment: Speci men Type: BLOOD SPECIMEN [facility] Address: [address] [place] [address] Performed By: #### 5 7021-8 #### [facility] CH[facility] [id number] [address] [place] [address] [place] Platelets (Bld) [#/Vol] 163 10*3/uL Normal 150-400 [facility] Comment on above: Order Comment: Speci men Type: BLOOD SPECIMEN [facility] Address: [address] [place], [place] [address] Performed By: #### 5 7021-8 #### [facility] CLIA [id number] [address] [place] [address] [place] RBC (Bld) [#/Vol] 4.56 10*6/uL Normal 4.20-6.00 [facility] Comment on above: Order Comment: Speci men Type: BLOOD SPECIMEN [facility] Address: [address] [place] [address] Performed By: #### 5 7021-8 #### [facility] CLIA [id number] [address] [place] [address] [place] WBC (Bld) [#/Vol] 6.46 10*3/uL Normal 3.70-11.00 [facility] Comment on above: Order Comment: Speci men Type: BLOOD SPECIMEN [facility] Address: [address] [place] [address] Performed By: #### 5 7021-8 #### [facility] CLIA [id number] [address] [place] [address] [place] CBC W Auto Differential pane l (Bld)on 01-30-2024 Basophils (Bld) [#/Vol] 10*3/uL Normal <0.11 [facility] Comment on above: Order Comment: Speci men Type: BLOOD SPECIMENOrdering Facility: [facility] Address: [address] [place] [address] Performed By: #### 5 7021-8 ####[facility] BOULEVARDA [id number] [place] [address] [place] Basophils/100 WBC (Bld) 0.2 % Normal [facility] Comment on above: Order Comment: Speci men Type: BLOOD SPECIMENOrdering Facility: [facility] Address: [address] [place] [address] Performed By: #### 5 7021-8 ####[facility] [id number] [place] [address] [place] Differential cell count method Nom (Bld) Auto Normal [facility] Comment on above: Order Comment: Speci men Type: BLOOD SPECIMENOrdering Facility: [facility] Address: [address] [place] [address] Performed By: #### 5 7021-8 ####[facility] [id number] [place] [address] [place] Eosinophils (Bld) [#/Vol] 0.05 10*3/uL Normal <0.46 [facility] Comment on above: Order Comment: Speci men Type: BLOOD SPECIMENOrdering Facility: [facility] Address: [address] [place] [address] Performed By: #### 5 7021-8 ####[facility] [id number] [place] [address] [place] Eosinophils/100 WBC (Bld) 0.5 % Normal [facility] Comment on above: Order Comment: Speci men Type: BLOOD SPECIMENOrdering Facility: [facility] Address: [address] [place] [address] Performed By: #### 5 7021-8 ####[facility] [id number] [place] [address] [place] Erythrocyte distribution width (RBC) [Ratio] 12.6 % Normal 11.5-15.0 [facility] Comment on above: Order Comment: Speci men Type: BLOOD SPECIMENOrdering Facility: [facility] Address: [address] [place] [address] Performed By: #### 5 7021-8 ####[facility] [id number] [place] [address] [place] Hematocrit (Bld) [Volume fraction] 45.2 % Normal 39.0-51.0 [facility] Comment on above: Order Comment: Speci men Type: BLOOD SPECIMENOrdering Facility: [facility] Address: [address] [place] [address] Performed By: #### 5 7021-8 ####[facility] [id number] [place] [address] [place] Hemoglobin (Bld) [Mass/Vol] 15.3 g/dL Normal 13.0-17.0 [facility] Comment on above: Order Comment: Speci men Type: BLOOD SPECIMENOrdering Facility: [facility] Address: [address] [place] [address] Performed By: #### 5 7021-8 ####[facility] [id number] [place] [address] [place] Immature granulocytes (Bld) [#/Vol] 0.04 10*3/uL Normal <0.10 [facility] Comment on above: Order Comment: Speci men Type: BLOOD SPECIMENOrdering Facility: [facility] Address: [address] [place] [address] Performed By: #### 5 7021-8 ####[facility] [id number] [place] [address] [place] Immature granulocytes/100 WBC (Bld) 0.4 % Normal [facility] Comment on above: Order Comment: Speci men Type: BLOOD SPECIMENOrdering Facility: [facility] Address: [address] [place] [address] Performed By: #### 5 7021-8 ####[facility] [id number] [place] [address] [place] Lymphocytes (Bld) [#/Vol] 4.07 10*3/uL High 1.00-4.00 [facility] Comment on above: Order Comment: Speci men Type: BLOOD SPECIMENOrdering Facility: [facility] Address: [address] [place] [address] Performed By: #### 5 7021-8 ####[facility] EM[facility]GENCYPATRICIA [id number] [address] [place] Lymphocytes/100 WBC (Bld) 42.3 % Normal [facility] Comment on above: Order Comment: Speci men Type: BLOOD SPECIMENOrdering Facility: [facility] Address: [address] [place] [address] Performed By: #### 5 7021-8 ####[facility] [id number] [place] [address] [place] MCH (RBC) [Entitic mass] 30.4 pg Normal 26.0-34.0 [facility] Comment on above: Order Comment: Speci men Type: BLOOD SPECIMENOrdering Facility: [facility] Address: [address] [place] [address] Performed By: #### 5 7021-8 ####[facility] [id number] [place] [address] [place] MCHC (RBC) [Mass/Vol] 33.8 g/dL Normal 30.5-36.0 [facility] Comment on above: Order Comment: Speci men Type: BLOOD SPECIMENOrdering Facility: [facility] Address: [address] [place] [address] Performed By: #### 5 7021-8 ####[facility]ENCYNCLI [id number] [place] [address] [place] MCV (RBC) [Entitic vol] 89.9 fL Normal 80.0-100.0 [facility] Comment on above: Order Comment: Speci men Type: BLOOD SPECIMENOrdering Facility: [facility] Address: [address] [place] [address] Performed By: #### 5 7021-8 ####[facility] MILLTOWNCLIA [id number] [place] [address] [place] Monocytes (Bld) [#/Vol] 0.47 10*3/uL Normal <0.87 [facility] Comment on above: Order Comment: Speci men Type: BLOOD SPECIMENOrdering Facility: [facility] Address: [address] [place] [address] Performed By: #### 5 7021-8 ####[facility] [id number] [place] [address] [place] Monocytes/100 WBC (Bld) 4.9 % Normal [facility] Comment on above: Order Comment: Speci men Type: BLOOD SPECIMENOrdering Facility: [facility] Address: [address] [place] [address] Performed By: #### 5 7021-8 ####[facility] [id number] [place] [address] [place] Neutrophils (Bld) [#/Vol] 4.98 10*3/uL Normal 1.45-7.50 [facility] Comment on above: Order Comment: Speci men Type: BLOOD SPECIMENOrdering Facility: [facility] Address: [address] [place] [address] Performed By: #### 5 7021-8 ####[facility] [id number] [place] [address] [place] Neutrophils/100 WBC (Bld) 51.7 % Normal [facility] Comment on above: Order Comment: Speci men Type: BLOOD SPECIMENOrdering Facility: [facility] Address: [address] [place] [address] Performed By: #### 5 7021-8 ####[facility] [id number] [place] [address] [place] Nucleated RBC (Bld) [#/Vol] 10*3/uL Normal <0.01 [facility] Comment on above: Order Comment: Speci men Type: BLOOD SPECIMENOrdering Facility: [facility] Address: [address] [place] [address] Performed By: #### 5 7021-8 ####[facility] [id number] [place] [address] [place] Nucleated RBC/100 WBC (Bld) [Ratio] 0.0 /100 WBC Normal [facility] Comment on above: Order Comment: Speci men Type: BLOOD SPECIMENOrdering Facility: [facility] Address: [address] [place] [address] Performed By: #### 5 7021-8 ####[facility] [id number] [place] [address] [place] Platelet mean volume (Bld) [Entitic vol] 10.2 fL Normal 9.0-12.7 [facility] Comment on above: Order Comment: Speci men Type: BLOOD SPECIMENOrdering Facility: [facility] Address: [address] [place] [address] Performed By: #### 5 7021-8 ####[facility] [id number] [place] [address] [place] Platelets (Bld) [#/Vol] 241 10*3/uL Normal 150-400 [facility] Comment on above: Order Comment: Speci men Type: BLOOD SPECIMENOrdering Facility: [facility] Address: [address] [place] [address] Performed By: #### 5 7021-8 ####[facility] [id number] [place] [address] [place] RBC (Bld) [#/Vol] 5.03 10*6/uL Normal 4.20-6.00 [facility] Comment on above: Order Comment: Speci men Type: BLOOD SPECIMENOrdering Facility: [facility] Address: [address] [place], [place] [address] Performed By: #### 5 7021-8 ####[facility] RICENCLIA [id number] [place] [address] [place] [facility] [place] WBC (Bld) [#/Vol] 9.63 10*3/uL Normal 3.70-11.00 [facility] Comment on above: Order Comment: Speci men Type: BLOOD SPECIMENOrdering Facility: [facility] Address: [address] [place], [place] [address] Performed By: #### 5 7021-8 ####[facility] BHAKTANCLIA [id number] [address] [place] Rangel 01-30-2024 CEE Telephone (HEMITZEL) ZANE BUITRAGO ([id number]) 2 M Date Time Provider Department 01/30/24 KILLIAN ELAM During your visit today, we recorded the following information about you: Katherine Walsh LPN 01/30/2024 4:06 PM Signed Patient to decrease prednisone to 20 mg daily. Patient aware. PSS- patient needs to be scheduled for a weekly CBC. Please contact patient to schedule. ANIRUDH Fenton Stephanie 01/30/2024 4:17 PM Signed Spoke with patient and scheduled. Amanda Hercules Allergies As of Date: 01/30/2024 (No Known Allergies) Date Reviewed: 01/20/2024 Reviewed by: Belen Gordon, RN - Fully Assessed Reason for Visit: Results [95] Prescriptions as of 01/30/2024 - eltrombopag olamine (PROMACTA) 50 mg tablet Take 1 tablet (50 mg) by mouth once daily. Administer on an empty stomach, 1 hour before or 2 hours after a meal. - ondansetron (ZOFRAN) 8 mg tablet Take 1 tablet by mouth every 12 hours as needed for nausea/vomiting. - omeprazole (PRILOSEC) 20 mg capsule Take 2 capsules by mouth once daily. - predniSONE (DELTASONE) 20 mg tablet Take 3 tablets by mouth once daily for 21 days, THEN 2.5 tablets once daily for 21 days, THEN 2 tablets once daily for 21 days, THEN 1.5 tablets once daily for 21 days, THEN 1 tablet once daily for 21 days, THEN 0.5 tablets once daily for 21 days. - sulfamethoxazole-trime thoprim (BACTRIM DS) 800-160 mg per tablet Take 1 tablet every Saturday, Saturday and Saturday. Problem List As Of Date 01/30/2024 Noted Resolved Pityriasis rosea [L42] 01/17/2016 Acute ITP (HCC) [D69.3] 06/25/2023 Chronic ITP (idiopathic thrombocytopenia) (HCC)*09/24/2023 Encounter Status:Closed by MAANDA HERCULES on 01/30/24 Normal [facility] Comprehensive metabolic 2000 panelon 01-30-2024 Albumin [Mass/Vol] 4.6 g/dL Normal 3.9-4.9 [facility] Comment on above: Order Comment: Speci roxanne Type: BLOOD SPECIMENOrdering Facility: [facility] Address: [address] [place] [address] Performed By: #### 2 4323-8 ####[facility] [id number] [place] [address] [place] ALP [Catalytic activity/Vol] 47 U/L Normal 38-113 [facility] Comment on above: Order Comment: Speci men Type: BLOOD SPECIMENOrdering Facility: [facility] Address: [address] [place] [address] Performed By: #### 2 4323-8 ####[facility] [id number] [place] [address] [place] ALT [Catalytic activity/Vol] 13 U/L Normal 10-54 [facility] Comment on above: Order Comment: Speci men Type: BLOOD SPECIMENOrdering Facility: [facility] Address: [address] [place] [address] Performed By: #### 2 4323-8 ####[facility] LOREN[facility] MILLTOWNCLIA [id number] [place] [address] [place] Anion gap [Moles/Vol] 8 mmol/L Low 9-18 [facility] Comment on above: Order Comment: Speci men Type: BLOOD SPECIMENOrdering Facility: [facility] Address: [address] [place] [address] Performed By: #### 2 4323-8 ####[facility] [id number] [place] [address] [place] AST [Catalytic activity/Vol] 11 U/L Low 14-40 [facility] Comment on above: Order Comment: Speci men Type: BLOOD SPECIMENOrdering Facility: [facility] Address: [address] [place] [address] Performed By: #### 2 4323-8 ####[facility] [id number] [place] [address] [place] Bilirubin [Mass/Vol] 0.5 mg/dL Normal 0.2-1.3 [facility] Comment on above: Order Comment: Speci men Type: BLOOD SPECIMENOrdering Facility: [facility] Address: [address] [place] [address] Performed By: #### 2 4323-8 ####[facility] [id number] [place] [address] [place] Calcium [Mass/Vol] 9.7 mg/dL Normal 8.5-10.2 [facility] Comment on above: Order Comment: Speci men Type: BLOOD SPECIMENOrdering Facility: [facility] Address: [address] [place] [address] Performed By: #### 2 4323-8 ####[facility] ANGELWNCLIA [id number] [place] [address] [place] Chloride [Moles/Vol] 103 mmol/L Normal 97-105 [facility] Comment on above: Order Comment: Speci men Type: BLOOD SPECIMENOrdering Facility: [facility] Address: [address] [place] [address] Performed By: #### 2 4323-8 ####[facility] [id number] [place] [address] [place] CO2 [Moles/Vol] 28 mmol/L Normal 22-30 [facility] Comment on above: Order Comment: Speci men Type: BLOOD SPECIMENOrdering Facility: [facility] Address: [address] [place] [address] Performed By: #### 2 4323-8 ####[facility] [id number] [place] [address] [place] Creatinine [Mass/Vol] 0.89 mg/dL Normal 0.73-1.22 [facility] Comment on above: Order Comment: Speci men Type: BLOOD SPECIMENOrdering Facility: [facility] Address: [address] [place] [address] Performed By: #### 2 4323-8 ####[facility] [id number] [place] [address] [place] Creatinine and Glomerular filtration rate.predicted panel (S/P/Bld) 124 mL/min/1.73m??? Normal >=60 [facility] Comment on above: Order Comment: Speci men Type: BLOOD SPECIMENOrdering Facility: [facility] Address: [address] [place] [address] Result Comment: Camila mated Glomerular Filtration Rate (eGFR) is calculated using the 2020 CKD-EPI creatinine equation. This equation utilizes serum creatinine, sex, and age as parameters. The creatinine assay has traceable calibration to isotope dilution-mass spectrometry. Refer to KDIGO guidelines for clinical interpretation. In patients with unstable renal function, e.g. those with acute kidney injury, the eGFR may not accurately reflect actual GFR. Performed By: #### 2 4323-8 ####[facility] EMERGENCYPATRICIA [id number] [place] [address] [place] Glucose [Mass/Vol] 97 mg/dL Normal 74-99 [facility] Comment on above: Order Comment: Prince oliveira Type: BLOOD SPECIMENOrdering Facility: [facility] Address: [address] [place] [address] Result Comment: The [place] Diabetes Association (ADA) provides guidance for cutoff values for fasting glucose and random glucose. The ADA defines fasting as no caloric intake for at least 8 hours. Fasting plasma glucose results between 100 to 125 mg/dL indicate increased risk for diabetes (prediabetes). Fasting plasma glucose results greater than or equal to 126 mg/dL meet the criteria for diagnosis of diabetes. In the absence of unequivocal hyperglycemia, results should be confirmed by repeat testing. In a patient with classic symptoms of hyperglycemia or hyperglycemic crisis, random plasma glucose results greater than or equal to 200 mg/dL meet the criteria for diagnosis of diabetes. Reference: Standards of Medical Care in Diabetes 2016, [place] Diabetes Association. Diabetes Care. 2016.39(Suppl 1). Performed By: #### 2 4323-8 ####[facility] EMERGENCYCATEA [id number] [place] [address] [place] Potassium [Moles/Vol] 3.8 mmol/L Normal 3.7-5.1 [facility] Comment on above: Order Comment: Prince oliveira Type: BLOOD SPECIMENOrdering Facility: [facility] Address: [address] [place] [address] Performed By: #### 2 4323-8 ####[facility]IA [id number] [place] [address] [place] Protein [Mass/Vol] 7.4 g/dL Normal 6.3-8.0 [facility] Comment on above: Order Comment: Speci men Type: BLOOD SPECIMENOrdering Facility: [facility] Address: [address] [place] [address] Performed By: #### 2 4323-8 ####[facility] BOULEVARDA [id number] [place] [address] [place] Sodium [Moles/Vol] 139 mmol/L Normal 136-144 [facility] Comment on above: Order Comment: Speci men Type: BLOOD SPECIMENOrdering Facility: [facility] Address: [address] [place] [address] Performed By: #### 2 4323-8 ####[facility]DA [id number] [place] [address] [place] Urea nitrogen [Mass/Vol] 10 mg/dL Normal 9-24 [facility] Comment on above: Order Comment: Speci men Type: BLOOD SPECIMENOrdering Facility: [facility] Address: [address] [place] [address] Performed By: #### 2 4323-8 ####[facility] HOSPITALLIA [id number] [place] [address] [place] CBC W Auto Differential pane l (Bld)on 01-17-2024 Basophils (Bld) [#/Vol] <0.11 k/uL [facility] Basophils/100 WBC (Bld) 0.2 % [facility] Differential cell count method Nom (Bld) Auto [facility] Eosinophils (Bld) [#/Vol] <0.46 k/uL [facility] Eosinophils/100 WBC (Bld) 0.2 % [facility] Erythrocyte distribution width (RBC) [Ratio] 12.8 % 11.5 - 15.0 % [facility] Hematocrit (Bld) [Volume fraction] 39.0 % 39.0 - 51.0 % [facility] Hemoglobin (Bld) [Mass/Vol] 12.9 g/dL Low 13.0 - 17.0 g/dL [facility] Immature granulocytes (Bld) [#/Vol] 0.04 10*3/uL <0.10 k/uL [facility] Immature granulocytes/100 WBC (Bld) 0.5 % [facility] Lymphocytes (Bld) [#/Vol] 2.04 10*3/uL 1.00 - 4.00 k/uL [facility] Lymphocytes/100 WBC (Bld) 23.4 % [facility] MCH (RBC) [Entitic mass] 30.6 pg 26. 0 - 34.0 pg [facility] MCHC (RBC) [Mass/Vol] 33.1 g/dL 30.5 - 36.0 g/dL [facility] MCV (RBC) [Entitic vol] 92.6 fL 80.0 - 100.0 fL [facility] Monocytes (Bld) [#/Vol] 0.37 10*3/uL <0.87 k/uL [facility] Monocytes/100 WBC (Bld) 4.2 % [facility] Neutrophils (Bld) [#/Vol] 6.24 10*3/uL 1.45 - 7.50 k/uL [facility] Neutrophils/100 WBC (Bld) 71.5 % [facility] Nucleated RBC (Bld) [#/Vol] <0.01 k/uL [facility] Nucleated RBC/100 WBC (Bld) [Ratio] 0.0 /100 WBC [facility] Platelet mean volume (Bld) [Entitic vol] 10.0 fL 9.0 - 12.7 fL [facility] Platelets (Bld) [#/Vol] 249 10*3/uL 150 - 400 k/uL [facility] RBC (Bld) [#/Vol] 4.21 10*6/uL 4.20 - 6.0 0 m/uL [facility] WBC (Bld) [#/Vol] 8.73 10*3/uL 3.70 - 11. 00 k/uL [facility] Comprehensive metabolic 2000 panelon 01-17-2024 Albumin [Mass/Vol] 4.0 g/dL 3.9 - 4.9 g/dL [facility] ALP [Catalytic activity/Vol] 53 U/L 38 - 113 U/L [facility] ALT [Catalytic activity/Vol] 12 U/L 10 - 54 U/L [facility] Anion gap [Moles/Vol] 5 mmol/L Low 9 - 18 mmol/L [facility] AST [Catalytic activity/Vol] 9 U/L Low 14 - 40 U/L [facility] Bilirubin [Mass/Vol] 0.2 mg/dL 0.2 - 1 .3 mg/dL [facility] Calcium [Mass/Vol] 9.1 mg/dL 8.5 - 10. 2 mg/dL [facility] Chloride [Moles/Vol] 107 mmol/L High 97 - 10 5 mmol/L [facility] CO2 [Moles/Vol] 29 mmol/L 22 - 30 mmol/L [facility] Creatinine [Mass/Vol] 0.89 mg/dL 0.73 - 1.22 mg/dL [facility] Estimated Glomerular Filtration Rate 124 mL/min/1.73m >=60 mL/min/1.73m [facility] Glucose [Mass/Vol] 85 mg/dL 74 - 99 mg/dL [facility] Potassium [Moles/Vol] 3.6 mmol/L Low 3.7 - 5.1 mmol/L [facility] Protein [Mass/Vol] 6.9 g/dL 6.3 - 8.0 g/dL [facility] Sodium [Moles/Vol] 141 mmol/L 136 - 144 mmol/L [facility] Urea nitrogen [Mass/Vol] 18 mg/dL 9 - 24 mg/d L [facility] Absolute lymphocyte countOrd ered By: Jasper Payan on 12-28-2023 Lymphocytes Auto (Unsp spec) [#/Vol] 1.65 10*3/uL 0.83-4.51 [facility] Automated lymphocyte count a s percentage of total leukocytesOrdered By: Jasper Payan on 12-28-2023 Lymphocytes/100 WBC Auto (Unsp spec) 19.8 % 19-41 [facility] Basic Metabolic Profile (BMP )on 12-28-2023 BUN/CRE 11.9 RATIO Normal 10-20 [facility] Comment on above: Performed By: #### M 100.678, M100.677 #### [facility] [address] [place], [place] [address], [address] CA,Total 9.0 mg/dL Normal 8.5-10.1 [facility] Comment on above: Performed By: #### M 100., #### [facility] [address] [place], [address] Chloride [Moles/Vol] 104 mmol/L Normal 98-107 [facility] Comment on above: Performed By: #### M , #### [facility] [address] [place], [address] CO2 [Moles/Vol] 27.0 mmol/L Normal 21.0-32.0 [facility] Comment on above: Performed By: #### M , #### [facility] [address] [place], [address] Creatinine [Mass/Vol] 1.01 mg/dL Normal 0.70-1.30 [facility] Comment on above: Result Comment: The validity of the calculated GFR GFRAA in patients over 70 years has not been determined. Clinical correlation is essential. Performed By: #### M , #### [facility] [address] [place], [address] ECRCL 114.72 ml/min Normal [facility] Comment on above: Performed By: #### M , #### [facility] [address] [place], [address] EST GFR - AA 118 mL/min Normal >60 [facility] Comment on above: Result Comment: Afri can [place] GFR Calc Performed By: #### M , #### [facility] [address] [place], [address] GAP 5 Normal 5-15 [facility] Comment on above: Performed By: #### M , #### [facility] [address] [place], [address] GFR/1.73 sq M.predicted among non-blacks MDRD (S/P/Bld) [Vol rate/Area] 97 mL/min/{1.73_m2} Normal >60 [facility] Comment on above: Result Comment: Non- GFR Calc Performed By: #### M 100.678, #### [facility] [address] [place], [address] Glucose [Mass/Vol] 111 mg/dL High 74-106 [facility] Comment on above: Result Comment: Fast ing Glucose result from 100 to 125 mg/dL suggests IMPAIRED HOMEOSTASIS per A.D.A. criteria. Performed By: #### M 100.678, #### [facility] [address] [place], [address] Potassium [Moles/Vol] 3.5 mmol/L Normal 3.5-5.1 [facility] Comment on above: Performed By: #### M 100.678, #### [facility] [address] [place], [address] Sodium [Moles/Vol] 136 mmol/L Normal 136-145 [facility] Comment on above: Performed By: #### M 100.678, #### [facility] [address] [place], [address] Urea nitrogen [Mass/Vol] 12 mg/dL Normal 7-18 [facility] Comment on above: Performed By: #### M 100.678, 7 #### [facility] [address] [place], [address] Basophil percentageOrdered B y: Jasper Payan on 12-28-2023 Basophils/100 WBC (Bld) 0.4 % 0-1 [facility] [place] [facility] Chloride [Moles/Vol] 104 mmol/L 98-107 [facility] Eosinophils/100 WBC (Bld) 0.1 % 0-5 [facility] Glucose [Mass/Vol] 111 mg/dL 74-106 [facility] Comment on above: Fasting Glucose resu lt from 100 to 125 mg/dL suggests IMPAIRED HOMEOSTASIS per A.D.A. criteria. Hemoglobin (Bld) [Mass/Vol] 15.4 g/dL 13.0-16.5 [facility] Monocytes/100 WBC (Bld) 5.4 % 0-10 [facility] Neutrophils (Bld) [#/Vol] 6.2 10*3/uL 2.0-7.7 [facility] Neutrophils/100 WBC (Bld) 73.9 % 47-70 [facility] Potassium [Moles/Vol] 3.5 mmol/L 3.5-5.1 [facility] Sodium [Moles/Vol] 136 mmol/L 136-145 [facility] WBC (Bld) [#/Vol] 8.3 10*3/uL 4.4-11.0 [facility] Brain/Head without Contrasto n 12-28-2023 Brain/Head without Contrast [facility] Imaging Services [address] [place] [address] Brain/Head without Contrast MR#: [id number] Acct: [id number] Name: ZANE BUITRAGO Rep #: [id number] : 2000 M 23 From: Royal Wells MD PCP: Care Physician,No Primary Status: REG ER Study: Brain/Head without Contrast Date of Exam: 12/12 04/06 Exam# [id number] Ordering Dr: Jasper Payan DO [id number] EXAM: CT HEAD WITHOUT INTRAVENOUS CONTRAST CLINICAL INDICATION: Pain TECHNIQUE: Multiple axial images were obtained of the head without intravenous contrast. This CT exam was performed using one or more of the following dose reduction techniques: automated exposure control, adjustment of the mA and/or kV according to patient size, and/or use of iterative reconstruction technique. COMPARISON: CT Head dated 06/01/2013 FINDINGS: BRAIN AND EXTRA-AXIAL SPACES: Normal. Normal brain attenuation. No intra- or extra-axial hemorrhage. No acute infarct. No intracranial mass or mass effect. There is preservation of the perez/white matter interface. Posterior fossa structures are unremarkable. Ventricles are appropriate for age. No hydrocephalus. Basal cisterns are patent. BONES/JOINTS: Normal calvarium. SINUSES: Mucus retention cysts noted within both maxillary sinuses. MASTOID AIR CELLS: Normal. Clear. CT/Brain/Head without Contrast IMPRESSION: No acute intracranial abnormality. Electronically Signed: Royal Wells MD at 10:36 EDT , CC: Dr. Jasper Payan, DO; No Primary Care Physician Production Clerk: Signed Normal [facility] CBC W/Diff, Automatedon 12-12 Absolute Lymph 1.65 X10 3/uL Normal 0.83-4.51 [facility] Comment on above: Performed By: #### L 100.0100, L500.2500 #### [facility] [address] [place], [address] Absolute Neut 6.2 X10 3/uL Normal 2.0-7.7 [facility] Comment on above: Performed By: #### L 100.0100, L500.2500 #### [facility] [address] [place], [address] Basophils/100 WBC (Bld) 0.4 % Normal 0-1 [facility] [place] [facility] Comment on above: Performed By: #### L 100.0100, L500.2500 #### [facility] [address] [place], [address] Eosinophils/100 WBC (Bld) 0.1 % Normal 0-5 [facility] Comment on above: Performed By: #### L 100.0100, L500.2500 #### [facility] [address] [place], [address] Erythrocyte distribution width (RBC) [Ratio] 12.2 % Normal 11.6-14.6 [facility] Comment on above: Performed By: #### L 100.0100, L500.2500 #### [facility] [address], [address] Hematocrit (Bld) [Volume fraction] 44.5 % Normal 40-54 [facility] Comment on above: Performed By: #### L 100.0100, L500.2500 #### [facility] [address] [place], [address] Hemoglobin (Bld) [Mass/Vol] 15.4 g/dL Normal 13.0-16.5 [facility] Comment on above: Performed By: #### L 100.0100, L500.2500 #### [facility] [address] [place], [address] IG% 0.400 Normal 0.0-0.9 [facility] Comment on above: Result Comment: IG% - Immature Granulocytes (promyelocytes, myelocytes and metamyelocytes) > 1% indicates that a LEFT SHIFT is Present. Performed By: #### L 100.0100, L500.2500 #### [facility] [address] [place], [address] Lymphocytes/100 WBC (Bld) 19.8 % Normal 19-41 [facility] Comment on above: Performed By: #### L 100.0100, L500.2500 #### [facility] [address] [place], [address] MCH (RBC) [Entitic mass] 30.6 pg Normal 27.0-32.0 [facility] Comment on above: Performed By: #### L 100.0100, L500.2500 #### [facility] [address], [address] MCHC (RBC) [Mass/Vol] 34.6 g/dL Normal 32-36 [facility] Comment on above: Performed By: #### L 100.0100, L500.2500 #### [facility] [address] [place], [address] MCV (RBC) [Entitic vol] 88.3 fL Normal 80-94 [facility] [place] [facility] Comment on above: Performed By: #### L 100.0100, L500.2500 #### [facility] [address] [place], [address] Monocytes/100 WBC (Bld) 5.4 % Normal 0-10 [facility] [place] [facility] Comment on above: Performed By: #### L 100.0100, L500.2500 #### [facility] [address] [place], [address] Neutrophils/100 WBC (Bld) 73.9 % High 47-70 [facility] Comment on above: Performed By: #### L 100.0100, L500.2500 #### [facility] [address] [place], [address] Nucleated RBC (Bld) [#/Vol] 0 10*3/uL Normal 0-5 [facility] Comment on above: Performed By: #### L 100.0100, L500.2500 #### [facility] [address] [place], [address] Platelet mean volume (Bld) [Entitic vol] 10.4 fL Normal 6.2-12.0 [facility] Comment on above: Performed By: #### L 100.0100, L500.2500 #### [facility] [address] [place], [address] Platelets (Bld) [#/Vol] 196 10*3/uL Normal 150-450 [facility] Comment on above: Performed By: #### L 100.0100, L500.2500 #### [facility] [address] [place], [address] RBC (Bld) [#/Vol] 5.04 10*6/uL Normal 4.6-6.2 [facility] Comment on above: Performed By: #### L 100.0100, L500.2500 #### [facility] [address] [place], [address] RDW SD 39.1 fl Normal 35.1-43.9 [facility] Comment on above: Performed By: #### L 100.0100, L500.2500 #### [facility] [address] [place], [address] WBC (Bld) [#/Vol] 8.3 10*3/uL Normal 4.4-11.0 [facility] Comment on above: Performed By: #### L 100.0100, L500.2500 #### [facility] [address] [place], [address] Determination of erythrocyte mean corpuscular volume (MCV)Ordered By: Jasper Payan on 12-28-2023 MCV (RBC) [Entitic vol] 88.3 fL 80-94 [facility] [place] [facility] Emergency Department Summary on 12-28-2023 Emergency Department Summary [facility] Medical Records Department [address] [place] [address] Emergency Department Summary 12/28/23 MR#: [id number] Acct: [id number] Name: ZANE BUITRAGO Rep #: [id number] : 2000 23 From: Jasper Payan DO PCP: Care Physician,No Primary Status:DEP ER Location: ED HPI History of Present Illness Chief Complaint: Headache Informant: patient Onset/Context/Timing Onset: Today Context: Sudden Timing: Continuous Quality -Headache: Positive for Throbbing Location: Generalized Worsened by: Movement Relieved by: Remaining still Associated Symptoms/Injury Associated Symptoms: Positive for Fever, Nausea, Vomiting and Sore Throat; Negative for Sinus Pressure, Numbness, Tingling, Preceding Aura, Visual Changes, Blurred Vision, Photophobia or Visual Loss Injury - [place]: Negative for Direct Trauma, Fall or Assault Narrative Narrative: Patient presents with a headache that began today. Patient states it woke him up out of his sleep this morning. Patient states it has been constant. Patient describes it as throbbing. Patient states it is diffuse across his entire head. Patient states it radiates into his neck. Patient states it is worse with any movement. Patient states it is better with remaining still. Patient states he has a history of ITP and had IVIG yesterday. Patient states he had chemotherapy last week. Patient admits to some subjective fevers. Patient denies any visual changes or scotoma. Patient admits to some nausea and vomiting. [facility] Medical History (Updated 12/28/23 @ 11:[address] 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 Father No problems noted. Brother Leukemia in remission Surgical History No history of previous surgery Surgical History no surgical history no surgical history Social History household members: none Smoking Status: Never smoker alcohol intake: never substance use type: marijuana ROS ROS ED Constitutional Constitutional ED: Reports fever(s) and subjective; Denies chills Eyes Eyes: Denies blurry vision or change in vision ENT ENT ED: Reports sore throat; Denies rhinorrhea Cardiovascular Cardiovascular: Denies chest pain or palpitations Respiratory/Chest Respiratory/Chest: Denies cough or dyspnea Gastrointestinal Gastrointestinal: Reports nausea and vomiting Genitourinary Genitourinary ED: Denies dysuria or hematuria Musculoskeletal Musculoskeletal: Reports neck pain; Denies back pain Integumentary Denies abscess or rash Neurologic Neurologic: Reports headache(s); Denies weakness Allergic/Immunologic Allergic/Immunologic ED: Denies mouth swelling or urticaria EXAM Physical Exam Const Vital Signs: 12/28/23 09:11 Temperature 98.9 F Temperature Source Temporal Pulse Rate 93 Respiratory Rate 14 Blood Pressure 146/79 H Blood Pressure Mean 101 Pulse Ox 100 Oxygen Delivery Method Room Air Positive well nourished and well developed General Appearance ED: well developed and NAD HEENT Reports moist mucous membranes atraumatic Neck supple, no meningeal signs and no JVD Resp normal respiratory effort and clear to auscultation bilaterally Cardio regular rate and regular rhythm GI non-tender and non-distended Palpation: soft; Negative for hepatomegaly or splenomegaly Extremity normal to inspection and full ROM Neuro oriented x3, CN's II-XII intact bilaterally and no sensory deficits noted Romulus Coma Scale: document GCS findings Spontaneous Obeys Commands Oriented 15 Sensorium / Orientation: awake and alert Speech: speech normal Psych mental status grossly normal MDM MDM MDM Narrative Medical decision making narrative: Differential diagnosis includes intracranial bleeding, migraine headache, and infection. CBC will be obtained to assess for leukocytosis, anemia, and thrombocytopenia. Basic metabolic profile will be obtained to assess for electrolyte abnormality and renal function. CT scan of the brain will be obtained to assess for intracranial bleeding. COVID-19, influenza, and RSV PCR will be obtained to assess for viral infection. Lab Data Attestation: I reviewed the patient's lab results. Lab results narrative: CBC was reviewed and was (more content not included)... Normal [facility] Erythrocyte distribution wid th ratioOrdered By: Jasper Payan on 12-28-2023 Erythrocyte distribution width (RBC) [Ratio] 12.2 % 11.6-14.6 [facility] Erythrocyte distribution wid th standard deviationOrdered By: Jasper Payan on 12-28-2023 Erythrocyte distribution width (RBC) [Entitic vol] 39.1 fL 35.1-43.9 [facility] Hematocrit Auto (Bld) [Volum e fraction]Ordered By: Jasper Payan on 12-28-2023 Hematocrit (Bld) [Volume fraction] 44.5 % 40-54 [facility] Immature granulocytes/100 WB C Auto (Bld)Ordered By: Jasper Payan on 12-28-2023 Immature granulocytes/100 WBC (Bld) 0.400 % 0.0-0.9 [facility] Comment on above: IG% - Immature Granu locytes (promyelocytes, myelocytes and metamyelocytes) > 1% indicates that a LEFT SHIFT is Present. Laboratory - Chemistry and C hemistry - challengeOrdered By: Jasper Payan on 12-28-2023 CO2 [Moles/Vol] 27.0 mmol/L 21.0-32.0 [facility] Urea nitrogen/Creatinine [Mass ratio] 11.9 mg/mg 10-20 [facility] Laboratory - Hematology and Cell countsOrdered By: Jasper Payan on 12-28-2023 MCH (RBC) [Entitic mass] 30.6 pg 27.0-32.0 [facility] MCHC (RBC) [Mass/Vol] 34.6 g/dL 32-36 [facility] Nucleated RBC/100 WBC (Bld) [Ratio] 0 % 0-5 [facility] Platelet mean volume (Bld) [Entitic vol] 10.4 fL 6.2-12.0 [facility] Platelets (Bld) [#/Vol] 196 10*3/uL 150-450 [facility] Laboratory - Microbiology an d Antimicrobial susceptibilityOrdered By: Jasper Payan on 12-28-2023 SARS-CoV-2 (COVID-19) RNA CHIKIS+probe Ql (Unsp spec) [facility] M100.678on 12-28-2023 M100.678 SARS-CoV-2 (COVID 19 ) Negative INFLUENZA A Negative INFLUENZA B Negative RSV PCR Negative Normal [facility] Comment on above: Performed By: #### M 100.678 #### [facility] [address] [place], [place] [address], [address] No Panel InformationOrdered By: Jasper Payan on 12-28-2023 Estimated Creatinine Clearance Calc 114.72 ml/min [facility] Estimated GFR (MDRD) Amer 118 mL/min >60 [facility] Comment on above: GFR Calc Estimated GFR (MDRD) Non-Af Amer 97 mL/min >60 [facility] Comment on above: Non- GFR Calc RBC Auto (Bld) [#/Vol]Ordere d By: Jasper Payan on 12-28-2023 RBC (Bld) [#/Vol] 5.04 10*6/uL 4.6-6.2 [facility] Serum or plasma calcium ag urement (mass/volume)Ordered By: Jasper Payan on 12-28-2023 Calcium [Mass/Vol] 9.0 mg/dL 8.5-10.1 [facility] Serum or plasma creatinine m easurement (mass/volume)Ordered By: Jasper Payan on 12-28-2023 Creatinine [Mass/Vol] 1.01 mg/dL 0.70-1.30 [facility] Comment on above: The validity of the calculated GFR & GFRAA in patients over 70 years has not been determined. Clinical correlation is essential. Serum or plasma urea nitroge n measurement (mass/volume)Ordered By: Jasper Payan on 12-28-2023 Urea nitrogen [Mass/Vol] 12 mg/dL 7-18 [facility] Thin prep Papanicolaou smear with manual screeningOrdered By: Jasper Payan on 12-28-2023 Thin prep Papanicolaou smear with manual screening 5 5-15 [facility] Absolute lymphocyte countOrd ered By: Shantel Piper on 12-06-2023 Lymphocytes Auto (Unsp spec) [#/Vol] 0.87 10*3/uL 0.83-4.51 [facility] Automated lymphocyte count a s percentage of total leukocytesOrdered By: Shantel Piper on 12-06-2023 Lymphocytes/100 WBC Auto (Unsp spec) 13.6 % 19-41 [facility] Basic Metabolic Profile (BMP )on 12-06-2023 BUN/CRE 15.4 RATIO Normal 10-20 [facility] Comment on above: Performed By: #### L 500.2500, L100.0100 #### [facility] [address] [place], [address] CA,Total 9.3 mg/dL Normal 8.5-10.1 [facility] Comment on above: Performed By: #### L 500.2500, L100.0100 #### [facility] [address] [place], [address] Chloride [Moles/Vol] 104 mmol/L Normal 98-107 [facility] Comment on above: Performed By: #### L 500.2500, L100.0100 #### [facility] [address] [place], [address] CO2 [Moles/Vol] 25.0 mmol/L Normal 21.0-32.0 [facility] Comment on above: Performed By: #### L 500.2500, L100.0100 #### [facility] [address] [place], [address] Creatinine [Mass/Vol] 0.98 mg/dL Normal 0.70-1.30 [facility] Comment on above: Result Comment: The validity of the calculated GFR GFRAA in patients over 70 years has not been determined. Clinical correlation is essential. Performed By: #### L 500.2500, L100.0100 #### [facility] [address] [place], [address] ECRCL 118.23 ml/min Normal [facility] Comment on above: Performed By: #### L 500.2500, L100.0100 #### [facility] [address] [place], [address] EST GFR - AA 123 mL/min Normal >60 [facility] Comment on above: Result Comment: Afri can [place] GFR Calc Performed By: #### L 500.2500, L100.0100 #### [facility] [address] [place], [address] GAP 9 Normal 5-15 [facility] Comment on above: Performed By: #### L 500.2500, L100.0100 #### [facility] [address] [place], [address] GFR/1.73 sq M.predicted among non-blacks MDRD (S/P/Bld) [Vol rate/Area] 101 mL/min/{1.73_m2} Normal >60 [facility] Comment on above: Result Comment: Non- GFR Calc Performed By: #### L 500.2500, L100.0100 #### [facility] [address] [place], [address] Glucose [Mass/Vol] 133 mg/dL High 74-106 [facility] Comment on above: Result Comment: Fast ing Glucose result greater than or equal to 126 mg/dL suggests DIABETES MELLITUS per A.D.A. criteria. Performed By: #### L 500.2500, L100.0100 #### [facility] [address] [place], [address] Potassium [Moles/Vol] 3.9 mmol/L Normal 3.5-5.1 [facility] Comment on above: Performed By: #### L 500.2500, L100.0100 #### [facility] [address] [place], [address] Sodium [Moles/Vol] 138 mmol/L Normal 136-145 [facility] Comment on above: Performed By: #### L 500.2500, L100.0100 #### [facility] [address] [place], [address] Urea nitrogen [Mass/Vol] 15 mg/dL Normal 7-18 [facility] Comment on above: Performed By: #### L 500.2500, L100.0100 #### [facility] [address] [place], [address] Basophil percentageOrdered B y: Shantel Piper on 12-06-2023 Basophils/100 WBC (Bld) 0.3 % 0-1 [facility] [place] [facility] Chloride [Moles/Vol] 104 mmol/L 98-107 [facility] Eosinophils/100 WBC (Bld) 0.3 % 0-5 [facility] Glucose [Mass/Vol] 133 mg/dL 74-106 [facility] Comment on above: Fasting Glucose resu lt greater than or equal to 126 mg/dL suggests DIABETES MELLITUS per A.D.A. criteria. Hemoglobin (Bld) [Mass/Vol] 13.8 g/dL 13.0-16.5 [facility] Monocytes/100 WBC (Bld) 11.6 % 0-10 [facility] [place] [facility] Neutrophils (Bld) [#/Vol] 4.7 10*3/uL 2.0-7.7 [facility] Neutrophils/100 WBC (Bld) 73.6 % 47-70 [facility] Potassium [Moles/Vol] 3.9 mmol/L 3.5-5.1 [facility] Sodium [Moles/Vol] 138 mmol/L 136-145 [facility] WBC (Bld) [#/Vol] 6.4 10*3/uL 4.4-11.0 [facility] CBC W/Diff, Automatedon 11-15 Absolute Lymph 0.87 X10 3/uL Normal 0.83-4.51 [facility] Comment on above: Performed By: #### L 500.2500, L100.0100 #### [facility] [address] [place], [address] Absolute Neut 4.7 X10 3/uL Normal 2.0-7.7 [facility] Comment on above: Performed By: #### L 500.2500, L100.0100 #### [facility] [address] [place], [address] Basophils/100 WBC (Bld) 0.3 % Normal 0-1 [facility] [place] [facility] Comment on above: Performed By: #### L 500.2500, L100.0100 #### [facility] [address] [place], [address] Eosinophils/100 WBC (Bld) 0.3 % Normal 0-5 [facility] Comment on above: Performed By: #### L 500.2500, L100.0100 #### [facility] [address] [place], [address] Erythrocyte distribution width (RBC) [Ratio] 11.7 % Normal 11.6-14.6 [facility] Comment on above: Performed By: #### L 500.2500, L100.0100 #### [facility] [address] [place], [address] Hematocrit (Bld) [Volume fraction] 39.7 % Low 40-54 [facility] Comment on above: Performed By: #### L 500.2500, L100.0100 #### [facility] [address] [place], [address] Hemoglobin (Bld) [Mass/Vol] 13.8 g/dL Normal 13.0-16.5 [facility] Comment on above: Performed By: #### L 500.2500, L100.0100 #### [facility] [address] [place], [address] IG% 0.600 Normal 0.0-0.9 [facility] Comment on above: Result Comment: IG% - Immature Granulocytes (promyelocytes, myelocytes and metamyelocytes) > 1% indicates that a LEFT SHIFT is Present. Performed By: #### L 500.2500, L100.0100 #### [facility] [address] [place], [address] Lymphocytes/100 WBC (Bld) 13.6 % Low 19-41 [facility] Comment on above: Performed By: #### L 500.2500, L100.0100 #### [facility] [address] [place], [address] MCH (RBC) [Entitic mass] 30.6 pg Normal 27.0-32.0 [facility] Comment on above: Performed By: #### L 500.2500, L100.0100 #### [facility] [address] [place], [address] MCHC (RBC) [Mass/Vol] 34.8 g/dL Normal 32-36 [facility] Comment on above: Performed By: #### L 500.2500, L100.0100 #### [facility] [address] [place], [address] MCV (RBC) [Entitic vol] 88.0 fL Normal 80-94 [facility] [place] [facility] Comment on above: Performed By: #### L 500.2500, L100.0100 #### [facility] [address] [place], [address] Monocytes/100 WBC (Bld) 11.6 % High 0-10 [facility] [place] [facility] Comment on above: Performed By: #### L 500.2500, L100.0100 #### [facility] [address] [place], [address] Neutrophils/100 WBC (Bld) 73.6 % High 47-70 [facility] Comment on above: Performed By: #### L 500.2500, L100.0100 #### [facility] [address] [place], [address] Nucleated RBC (Bld) [#/Vol] 0 10*3/uL Normal 0-5 [facility] Comment on above: Performed By: #### L 500.2500, L100.0100 #### [facility] [address] [place], [address] Platelet mean volume (Bld) [Entitic vol] 10.8 fL Normal 6.2-12.0 [facility] Comment on above: Performed By: #### L 500.2500, L100.0100 #### [facility] [address] [place], [address] Platelets (Bld) [#/Vol] 82 10*3/uL Low 150-450 [facility] [place] [facility] Comment on above: Performed By: #### L 500.2500, L100.0100 #### [facility] [address] [place], [address] RBC (Bld) [#/Vol] 4.51 10*6/uL Low 4.6-6.2 [facility] Comment on above: Performed By: #### L 500.2500, L100.0100 #### [facility] [address] [place], [address] RDW SD 37.5 fl Normal 35.1-43.9 [facility] Comment on above: Performed By: #### L 500.2500, L100.0100 #### [facility] [address] [place], [address] WBC (Bld) [#/Vol] 6.4 10*3/uL Normal 4.4-11.0 [facility] Comment on above: Performed By: #### L 500.2500, L100.0100 #### [facility] [address] [place], [address] Chest 1 View (Portable)on Chest 1 View (Portable) [facility] Imaging Services [address] [place] [address] Chest 1 View (Portable) MR#: [id number] Acct: [id number] Name: ZANE BUITRAGO Rep #: [id number] : 2000 M 23 From: [place] wright MD PCP: Care Physician,No Primary Status: [facility] ER Study: Chest 1 View (Portable) Date of Exam: 12/06/23 Exam# [id number] Ordering Dr: Harvey Singh MD [id number] STUDY: X-RAY CHEST REASON FOR EXAM: Male, 23 years old. Fever TECHNIQUE: Single AP portable view of the chest. COMPARISON: None. FINDINGS: The lungs are clear and expanded. There is no demonstrated pleural abnormality. Normal size heart. Normal mediastinum and varun. Normal visualized pulmonary arteries. Normal visualized aortic arch and descending thoracic aorta. Normal visualized thoracic spine. Normal visualized ribs, clavicles, and shoulders. There is no demonstrated abnormality of the visualized soft tissue structures of the upper abdomen. RAD/Chest 1 View (Portable) IMPRESSION: Normal x-ray examination of the chest. Electronically Signed: Houston Larios MD at 14:05 EST , CC: Dr. Harvey Singh MD; No Primary Care Physician Production Clerk: Signed Normal [facility] Determination of erythrocyte mean corpuscular volume (MCV)Ordered By: Shantel Piper on 12-06-2023 MCV (RBC) [Entitic vol] 88.0 fL 80-94 [facility] [place] [facility] Emergency Department Summary on 12-06-2023 Emergency Department Summary [facility] Medical Records Department [address] [place] [address] Emergency Department Summary 12/06/23 MR#: [id number] Acct: [id number] Name: ZANE BUITRAGO Rep #: [id number] : 2000 23 From: Harvey Singh MD PCP: Care Physician,No Primary Status:REG ER Location: ED HPI History of Present Illness Chief Complaint: General Illness Narrative Narrative: Patient presenting today with his mother due to generalized muscle pain that he has had for the past 3 to 4 days that acutely worsened last night. 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 Elam for this. He has received 2 rounds of chemotherapy, last round was 1 week ago. He was supposed to have chemotherapy today but was in too much pain and was told to come to the ED for evaluation. He reports that it feels like, my muscles are ripping. He denies any fevers, chills, shortness of breath, nausea, and vomiting. [facility] Medical History Cannabis use disorder Ecchymoses, spontaneous Hypofibrinogenemia Severe thrombocytopenia Home Medications oxycodone-acetaminophe n 5 mg-325 mg tablet (Percocet) 1 tab PO Q8H PRN pain 3 days #10 tabs 12/06/23 [Rx Last Taken Unknown] Allergy/AdvReac Type Severity Reaction Status Date / Time No Known Allergies Allergy Verified 12/06/23 10:47 Family History Mother No problems noted. Father No problems noted. Brother Leukemia in remission Surgical History No history of previous surgery Social History household members: none Smoking Status: Never smoker alcohol intake: never substance use type: marijuana ROS ROS ED Constitutional Constitutional ED: Denies chills or fever(s) Cardiovascular Cardiovascular: Denies chest pain or palpitations Respiratory/Chest Respiratory/Chest: Denies cough or dyspnea Gastrointestinal Gastrointestinal: Denies abdominal pain, nausea or vomiting Musculoskeletal Musculoskeletal: Reports arthralgias, back pain and myalgias Integumentary Denies rash Neurologic Neurologic: Reports weakness; Denies paresthesias EXAM Physical Exam Const Vital Signs: 12/06/23 09:26 12/06/23 10:43 12/06/23 15:00 Temperature 98.4 F 99.3 F H Temperature Source Temporal Temporal Pulse Rate 97 Respiratory Rate 18 Respiratory Effort Normal Respiratory Pattern Normal Blood Pressure 131/79 H Blood Pressure Mean 96 Pulse Ox 100 Oxygen Delivery Method Room Air Positive well nourished, well developed and no apparent distress General Appearance ED: well developed HEENT Reports normocephalic and head/scalp atraumatic Mouth ED: Yes moist mucous membranes normal Eyes PERRL and EOMs intact bilaterally Neck full ROM and supple Chest Wall inspection of chest normal Resp normal respiratory effort and clear to auscultation bilaterally Cardio regular rate and regular rhythm GI soft to palpation, non-tender, non-distended and no masses Back/Spine normal ROM and normal to inspection Extremity normal to inspection and full ROM Neuro oriented x3, CN's II-XII intact bilaterally, moves all extremities, no focal motor deficits and no sensory deficits noted Sensorium / Orientation: awake and alert Psych mental status grossly normal and thought process normal Skin no rashes or lesions noted and no wounds Physical Exam Const Vital Signs: 12/06/23 09:26 12/06/23 10:43 12/06/23 15:00 Temperature 98.4 F 99.3 F H Temperature Source Temporal Temporal Pulse Rate 97 Respiratory Rate 18 Respiratory Effort Normal Respiratory Pattern Normal Blood Pressure 131/79 H Blood Pressure Mean 96 Pulse Ox 100 Oxygen Delivery Method Room Air MDM MDM MDM Narrative Medical decision making narrative: Patient presenting due to generalized muscle aches that have been going on for the past 3 to 4 days but worsened last night. He does appear to be uncomfortable. Vitals are unremarkable. Labs will be obtained and he will be given IV morphine and Zofran. Temperature was taken and was 100.4 ???F. COVID, influenza, RSV swab obtained as well as chest x-ray. Workup is unremarkable. Platelets are low chronically. He was given Tylenol for the fever and additional IV morphine. On reexamination he reports improvement of his symptoms. The attending did speak with Dr. Elam who thinks that this is either viral syndrome or serum sickness. He does have a prescription at home for prednisone that he is to take and I will give him pain medication for home. Return instructions discussed. He w (more content not included)... Normal [facility] Erythrocyte distribution wid th ratioOrdered By: Shantel Piper on 12-06-2023 Erythrocyte distribution width (RBC) [Ratio] 11.7 % 11.6-14.6 [facility] Erythrocyte distribution wid th standard deviationOrdered By: Shantel Piper on 12-06-2023 Erythrocyte distribution width (RBC) [Entitic vol] 37.5 fL 35.1-43.9 [facility] Hematocrit Auto (Bld) [Volum e fraction]Ordered By: Shantel Piper on 12-06-2023 Hematocrit (Bld) [Volume fraction] 39.7 % 40-54 [facility] Immature granulocytes/100 WB C Auto (Bld)Ordered By: Shantel Piper on 12-06-2023 Immature granulocytes/100 WBC (Bld) 0.600 % 0.0-0.9 [facility] Comment on above: IG% - Immature Granu locytes (promyelocytes, myelocytes and metamyelocytes) > 1% indicates that a LEFT SHIFT is Present. Laboratory - Chemistry and C hemistry - challengeOrdered By: Shantel Piper on 12-06-2023 CO2 [Moles/Vol] 25.0 mmol/L 21.0-32.0 [facility] Urea nitrogen/Creatinine [Mass ratio] 15.4 mg/mg 10-20 [facility] Laboratory - Hematology and Cell countsOrdered By: Shantel Piper on 12-06-2023 MCH (RBC) [Entitic mass] 30.6 pg 27.0-32.0 [facility] MCHC (RBC) [Mass/Vol] 34.8 g/dL 32-36 [facility] Nucleated RBC/100 WBC (Bld) [Ratio] 0 % 0-5 [facility] Platelet mean volume (Bld) [Entitic vol] 10.8 fL 6.2-12.0 [facility] Platelets (Bld) [#/Vol] 82 10*3/uL 150-450 [facility] [place] [facility] Laboratory - Microbiology an d Antimicrobial susceptibilityOrdered By: Harvey Singh on 12-06-2023 SARS-CoV-2 (COVID-19) RNA CHIKIS+probe Ql (Unsp spec) [facility] SARS-CoV-2 (COVID-19) RNA CHIKIS+probe Ql (Unsp spec) [facility] M100.677on 12-06-2023 M100.677 Negative Normal [facility] Comment on above: Performed By: #### M 100.678, M100.7 #### [facility] [address] [place], [place], [id number] M100.678on 12-06-2023 M100.678 SARS-CoV-2 (COVID 19 ) Negative INFLUENZA A Negative INFLUENZA B Negative RSV PCR Negative Normal [facility] Comment on above: Performed By: #### M 100.678, M100.677 #### [facility] [address] [place], [place], [id number] No Panel InformationOrdered By: Shantel Piper on 12-06-2023 Estimated Creatinine Clearance Calc 118.23 ml/min [facility] Estimated GFR (MDRD) Amer 123 mL/min >60 [facility] Comment on above: GFR Calc Estimated GFR (MDRD) Non-Af Amer 101 mL/min >60 [facility] Comment on above: Non- GFR Calc RBC Auto (Bld) [#/Vol]Ordere d By: Shantel Piper on 12-06-2023 RBC (Bld) [#/Vol] 4.51 10*6/uL 4.6-6.2 [facility] Serum or plasma calcium ag urement (mass/volume)Ordered By: Shantel Piper on 12-06-2023 Calcium [Mass/Vol] 9.3 mg/dL 8.5-10.1 [facility] Serum or plasma creatinine m easurement (mass/volume)Ordered By: Shantel Piper on 12-06-2023 Creatinine [Mass/Vol] 0.98 mg/dL 0.70-1.30 [facility] Comment on above: The validity of the calculated GFR & GFRAA in patients over 70 years has not been determined. Clinical correlation is essential. Serum or plasma urea nitroge n measurement (mass/volume)Ordered By: Shantel Piper on 12-06-2023 Urea nitrogen [Mass/Vol] 15 mg/dL 7-18 [facility] Thin prep Papanicolaou smear with manual screeningOrdered By: Shantel Piper on 12-06-2023 Thin prep Papanicolaou smear with manual screening 9 5-15 [facility] Comprehensive metabolic 2000 panelon 11-29-2023 Albumin [Mass/Vol] 3.3 g/dL Low 3.9 - 4.9 g/dL [facility] ALP [Catalytic activity/Vol] 35 U/L Low 38 - 113 U/L [facility] ALT [Catalytic activity/Vol] 9 U/L Low 10 - 54 U/L [facility] Anion gap [Moles/Vol] 3 mmol/L Low 9 - 18 mmol/L [facility] AST [Catalytic activity/Vol] 7 U/L Low 14 - 40 U/L [facility] Bilirubin [Mass/Vol] 0.2 mg/dL 0.2 - 1 .3 mg/dL [facility] Calcium [Mass/Vol] 7.8 mg/dL Low 8.5 - 10. 2 mg/dL [facility] Chloride [Moles/Vol] 113 mmol/L High 97 - 10 5 mmol/L [facility] CO2 [Moles/Vol] 28 mmol/L 22 - 30 mmol/L [facility] Creatinine [Mass/Vol] 0.96 mg/dL 0.73 - 1.22 mg/dL [facility] Estimated Glomerular Filtration Rate 115 mL/min/1.73m >=60 mL/min/1.73m [facility] Glucose [Mass/Vol] 89 mg/dL 74 - 99 mg/dL [facility] Potassium [Moles/Vol] 3.3 mmol/L Low 3.7 - 5.1 mmol/L [facility] Protein [Mass/Vol] 4.7 g/dL Low 6.3 - 8.0 g/dL [facility] Sodium [Moles/Vol] 144 mmol/L 136 - 144 mmol/L [facility] Urea nitrogen [Mass/Vol] 13 mg/dL 9 - 24 mg/d L [facility] MAGNESIUM BLDon 11-29-2023 Magnesium [Mass/Vol] 1.9 mg/dL 1.7 - 2 .3 mg/dL [facility] HBV surface Ab Ql (S)on HBV surface Ab Qn (S) 30.99 mIU/mL [facility] HEP B CORE AB TOTALon 2023 HBV core Ab Ql (S) Negative Negative [facility] HEP B SURF ABon 11-22-2023 HBV surface Ab Ql (S) Positive [facility] HEP B SURF AG SCRNon HBV surface Ag Ql (S) Negative Negative [facility] HEPATITIS C ANTIBODY IA WITH CONFIRMATIONon 11-22-2023 HCV Ab Ql (S) Negative Negative [facility] CBC W Auto Differential pane l (Bld)on 07-02-2023 Basophils (Bld) [#/Vol] 0.03 10*3/uL <0.11 k/uL [facility] Basophils/100 WBC (Bld) 0.6 % [facility] Differential cell count method Nom (Bld) Auto [facility] Eosinophils (Bld) [#/Vol] <0.46 k/uL [facility] Eosinophils/100 WBC (Bld) 0.2 % [facility] Erythrocyte distribution width (RBC) [Ratio] 12.3 % 11.5 - 15.0 % [facility] Hematocrit (Bld) [Volume fraction] 42.7 % 39.0 - 51.0 % [facility] Hemoglobin (Bld) [Mass/Vol] 14.3 g/dL 13.0 - 17.0 g/dL [facility] Immature granulocytes (Bld) [#/Vol] <0.10 k/uL [facility] Immature granulocytes/100 WBC (Bld) 0.4 % [facility] Lymphocytes (Bld) [#/Vol] 2.14 10*3/uL 1.00 - 4.00 k/uL [facility] Lymphocytes/100 WBC (Bld) 45.6 % [facility] MCH (RBC) [Entitic mass] 31.1 pg 26. 0 - 34.0 pg [facility] MCHC (RBC) [Mass/Vol] 33.5 g/dL 30.5 - 36.0 g/dL [facility] MCV (RBC) [Entitic vol] 92.8 fL 80.0 - 100.0 fL [facility] Monocytes (Bld) [#/Vol] 0.28 10*3/uL <0.87 k/uL [facility] Monocytes/100 WBC (Bld) 6.0 % [facility] Neutrophils (Bld) [#/Vol] 2.21 10*3/uL 1.45 - 7.50 k/uL [facility] Neutrophils/100 WBC (Bld) 47.2 % [facility] Nucleated RBC (Bld) [#/Vol] <0.01 k/uL [facility] Nucleated RBC/100 WBC (Bld) [Ratio] 0.0 /100 WBC [facility] Platelet mean volume (Bld) [Entitic vol] 10.3 fL 9.0 - 12.7 fL [facility] Platelets (Bld) [#/Vol] 248 10*3/uL 150 - 400 k/uL [facility] RBC (Bld) [#/Vol] 4.60 10*6/uL 4.20 - 6.0 0 m/uL [facility] WBC (Bld) [#/Vol] 4.69 10*3/uL 3.70 - 11. 00 k/uL [facility] Comprehensive metabolic 2000 panelon 07-02-2023 Albumin [Mass/Vol] 3.9 g/dL 3.9 - 4.9 g/dL [facility] ALP [Catalytic activity/Vol] 27 U/L Low 38 - 113 U/L [facility] ALT [Catalytic activity/Vol] 19 U/L 10 - 54 U/L [facility] Anion gap [Moles/Vol] 8 mmol/L Low 9 - 18 mmol/L [facility] AST [Catalytic activity/Vol] 14 U/L 14 - 40 U/L [facility] Bilirubin [Mass/Vol] 0.4 mg/dL 0.2 - 1 .3 mg/dL [facility] Calcium [Mass/Vol] 8.8 mg/dL 8.5 - 10. 2 mg/dL [facility] Chloride [Moles/Vol] 107 mmol/L High 97 - 10 5 mmol/L [facility] CO2 [Moles/Vol] 25 mmol/L 22 - 30 mmol/L [facility] Creatinine [Mass/Vol] 0.90 mg/dL 0.73 - 1.22 mg/dL [facility] Estimated Glomerular Filtration Rate 124 mL/min/1.73m >=60 mL/min/1.73m [facility] Glucose [Mass/Vol] 91 mg/dL 74 - 99 mg/dL [facility] Potassium [Moles/Vol] 3.6 mmol/L Low 3.7 - 5.1 mmol/L [facility] Protein [Mass/Vol] 7.9 g/dL 6.3 - 8.0 g/dL [facility] Sodium [Moles/Vol] 140 mmol/L 136 - 144 mmol/L [facility] Urea nitrogen [Mass/Vol] 16 mg/dL 9 - 24 mg/d L [facility] C-REACTIVE PROTEIN (CRP)on 0 06-19-2023 CRP [Mass/Vol] <0.9 mg/dL [facility] CK CREATINE KINASEon 023 CK [Catalytic activity/Vol] 33 U/L Low 51 - 298 U/L [facility] ESR Westergren method (Bld) [Velocity]on 06-19-2023 ESR (Bld) [Velocity] 2 mm/h 0 - 15 mm/hr Cl [facility] T4 FREE/FREE THYROXon 2022 Free T4 [Mass/Vol] 1.7 ng/dL 0.9 - 1.7 ng/dL [facility] TSH BLDon 06-19-2023 TSH Qn 0.940 m[IU]/L 0.270 - 4.200 mIU/L [facility] ACTIVATED PTTon 06-11-2023 aPTT Coag (PPP) [Time] 27.4 s 23.0 - 32.4 sec [facility] PT panel Coag (PPP)on 2022 INR Coag (PPP) [Relative time] 1.0 {INR} 0.9 - 1.3 [facility] PT Coag (PPP) [Time] 10.1 s <13.[facility] ACTIVATED PTTon 05-27-2023 aPTT Coag (PPP) [Time] 24.8 s 23.0 - 32.4 sec [facility] CBC W Auto Differential pane l (Bld)on 05-27-2023 Basophils (Bld) [#/Vol] <0.11 k/uL [facility] Basophils/100 WBC (Bld) 0.1 % [facility] Differential cell count method Nom (Bld) Auto [facility] Eosinophils (Bld) [#/Vol] 0.04 10*3/uL <0.46 k/uL [facility] Eosinophils/100 WBC (Bld) 0.4 % [facility] Erythrocyte distribution width (RBC) [Ratio] 12.8 % 11.5 - 15.0 % [facility] Hematocrit (Bld) [Volume fraction] 41.1 % 39.0 - 51.0 % [facility] Hemoglobin (Bld) [Mass/Vol] 14.0 g/dL 13.0 - 17.0 g/dL [facility] Immature granulocytes (Bld) [#/Vol] 0.08 10*3/uL <0.10 k/uL [facility] Immature granulocytes/100 WBC (Bld) 0.9 % [facility] Lymphocytes (Bld) [#/Vol] 4.49 10*3/uL High 1.00 - 4.00 k/uL [facility] Lymphocytes/100 WBC (Bld) 50.5 % [facility] MCH (RBC) [Entitic mass] 31.3 pg 26. 0 - 34.0 pg [facility] MCHC (RBC) [Mass/Vol] 34.1 g/dL 30.5 - 36.0 g/dL [facility] MCV (RBC) [Entitic vol] 91.9 fL 80.0 - 100.0 fL [facility] Monocytes (Bld) [#/Vol] 0.42 10*3/uL <0.87 k/uL [facility] Monocytes/100 WBC (Bld) 4.7 % [facility] [#/Vol] 3.85 10*3/uL 1.45 - 7.50 k/uL [facility] Neutrophils/100 WBC (Bld) 43.4 % [facility] Nucleated RBC (Bld) [#/Vol] <0.01 k/uL [facility] Nucleated RBC/100 WBC (Bld) [Ratio] 0.0 /100 WBC [facility] Platelet mean volume (Bld) [Entitic vol] 11.2 fL 9.0 - 12.7 fL [facility] Platelets (Bld) [#/Vol] 168 10*3/uL 150 - 400 k/uL [facility] RBC (Bld) [#/Vol] 4.47 10*6/uL 4.20 - 6.0 0 m/uL [facility] WBC (Bld) [#/Vol] 8.89 10*3/uL 3.70 - 11. 00 k/uL [facility] Comprehensive metabolic 2000 panelon 05-27-2023 Albumin [Mass/Vol] 4.1 g/dL 3.9 - 4.9 g/dL [facility] ALP [Catalytic activity/Vol] 55 U/L 38 - 113 U/L [facility] ALT [Catalytic activity/Vol] 11 U/L 10 - 54 U/L [facility] Anion gap [Moles/Vol] 9 mmol/L 9 - 18 mmol/L [facility] AST [Catalytic activity/Vol] 7 U/L Low 14 - 40 U/L [facility] Bilirubin [Mass/Vol] 0.2 mg/dL 0.2 - 1 .3 mg/dL [facility] Calcium [Mass/Vol] 9.1 mg/dL 8.5 - 10. 2 mg/dL [facility] Chloride [Moles/Vol] 104 mmol/L 97 - 10 5 mmol/L [facility] CO2 [Moles/Vol] 27 mmol/L 22 - 30 mmol/L [facility] Creatinine [Mass/Vol] 1.05 mg/dL 0.73 - 1.22 mg/dL [facility] Estimated Glomerular Filtration Rate 103 mL/min/1.73m >=60 mL/min/1.73m [facility] Glucose [Mass/Vol] 87 mg/dL 74 - 99 mg/dL [facility] Potassium [Moles/Vol] 3.9 mmol/L 3.7 - 5.1 mmol/L [facility] Protein [Mass/Vol] 6.1 g/dL Low 6.3 - 8.0 g/dL [facility] Sodium [Moles/Vol] 140 mmol/L 136 - 144 mmol/L [facility] Urea nitrogen [Mass/Vol] 27 mg/dL High 9 - 24 mg/d L [facility] LD LACTATE DEHYDROon 023 LDH [Catalytic activity/Vol] 161 U/L 135 - 225 U/L [facility] No Panel Informationon 05-27 [facility] PT panel Coag (PPP)on 2022 INR Coag (PPP) [Relative time] 1.0 {INR} 0.9 - 1.3 [facility] PT Coag (PPP) [Time] 9.8 s <13.1 sec [facility] Absolute lymphocyte countOrd ered By: Kay Yoo on 05-24-2023 Lymphocytes Auto (Unsp spec) [#/Vol] 1.23 10*3/uL 0.83-4.51 [facility] Basophil percentageOrdered B y: Kay Yoo on 05-24-2023 Basophils/100 WBC (Bld) 0.1 % 0-1 [facility] Chloride [Moles/Vol] 108 mmol/L 98-107 [facility] Eosinophils/100 WBC (Bld) 0.0 % 0-5 [facility] Glucose [Mass/Vol] 134 mg/dL 74-106 [facility] Comment on above: Fasting Glucose resu lt greater than or equal to 126 mg/dL suggests DIABETES MELLITUS per A.D.A. criteria. Neutrophils (Bld) [#/Vol] 10.2 10*3/uL 2.0-7.7 [facility] Neutrophils/100 WBC (Bld) 83.7 % 47-70 [facility] Potassium [Moles/Vol] 3.9 mmol/L 3.5-5.1 [facility] Sodium [Moles/Vol] 139 mmol/L 136-145 [facility] WBC (Bld) [#/Vol] 12.2 10*3/uL 4.4-11.0 [facility] Blood erythrocytes count (nu mber/volume)Ordered By: Kay Yoo on 05-24-2023 RBC (Bld) [#/Vol] 4.61 10*6/uL 4.6-6.2 [facility] Blood hemoglobin measurement (mass/volume)Ordered By: Kay Yoo on 05-24-2023 Hemoglobin (Bld) [Mass/Vol] 14.3 g/dL 13.0-16.5 [facility] Blood lymphocytes/100 leukoc ytesOrdered By: Kay Yoo on 05-24-2023 Lymphocytes/100 WBC (Bld) 10.1 % 19-41 [facility] Blood monocytes/100 leukocyt esOrdered By: Kay Yoo on 05-24-2023 Monocytes/100 WBC (Bld) 5.4 % 0-10 [facility] Blood platelet adequacy dete ction by light microscopyOrdered By: Kay Yoo on 05-24-2023 Platelets LM Ql (Bld) MOD DEC ADEQ [facility] Blood platelet mean volumeOr dered By: Kay Yoo on 05-24-2023 Platelet mean volume (Bld) [Entitic vol] 12.2 fL 6.2-12.0 [facility] Determination of erythrocyte mean corpuscular volume (MCV)Ordered By: Kay Yoo on 05-24-2023 MCV (RBC) [Entitic vol] 91.1 fL 80-94 [facility] Hematocrit Auto (Bld) [Volum e fraction]Ordered By: Kay Yoo on 05-24-2023 Hematocrit (Bld) [Volume fraction] 42.0 % 40-54 [facility] Laboratory - Chemistry and C hemistry - challengeOrdered By: Kay Yoo on 05-24-2023 CO2 [Moles/Vol] 25.0 mmol/L 21.0-32.0 [facility] Urea nitrogen/Creatinine [Mass ratio] 23.2 mg/mg 10-20 [facility] Laboratory - Hematology and Cell countsOrdered By: Kay Yoo on 05-24-2023 Erythrocyte distribution width (RBC) [Entitic vol] 42.6 fL 35.1-43.9 [facility] Erythrocyte distribution width (RBC) [Ratio] 12.9 % 11.6-14.6 [facility] Immature granulocytes/100 WBC (Bld) 0.700 % 0.0-0.9 [facility] Comment on above: IG% - Immature Granu locytes (promyelocytes, myelocytes and metamyelocytes) > 1% indicates that a LEFT SHIFT is Present. MCH (RBC) [Entitic mass] 31.0 pg 27.0-32.0 [facility] Nucleated RBC/100 WBC (Bld) [Ratio] 0 % 0-5 [facility] MCHC Auto (RBC) [Mass/Vol]Or dered By: Kay Yoo on 05-24-2023 MCHC (RBC) [Mass/Vol] 34.0 g/dL 32-36 [facility] No Panel InformationOrdered By: Kay Yoo on 05-24-2023 Estimated Creatinine Clearance Calc 131.47 ml/min [facility] Estimated GFR (MDRD) Amer 134 mL/min >60 [facility] Comment on above: GFR Calc Estimated GFR (MDRD) Non-Af Amer 111 mL/min >60 [facility] Comment on above: Non- GFR Calc Platelets bldOrdered By: Ale Yoo on 05-24-2023 Platelets (Bld) [#/Vol] 90 10*3/uL 150-450 [facility] Serum or plasma calcium ag urement (mass/volume)Ordered By: Kay Yoo on 05-24-2023 Calcium [Mass/Vol] 8.7 mg/dL 8.5-10.1 [facility] Serum or plasma creatinine m easurement (mass/volume)Ordered By: Kay Yoo on 05-24-2023 Creatinine [Mass/Vol] 0.91 mg/dL 0.70-1.30 [facility] Comment on above: The validity of the calculated GFR & GFRAA in patients over 70 years has not been determined. Clinical correlation is essential. Serum or plasma urea nitroge n measurement (mass/volume)Ordered By: Kay Yoo on 05-24-2023 Urea nitrogen [Mass/Vol] 21 mg/dL 7-18 [facility] Thin prep Papanicolaou smear with manual screeningOrdered By: Kay Yoo on 05-24-2023 Thin prep Papanicolaou smear with manual screening 6 5-15 [facility] Basophil percentageOrdered B y: Karol Mari on 05-23-2023 Bilirubin [Mass/Vol] 0.80 mg/dL 0.20-1.00 [facility] Comment on above: For patients on eltr ombopag therapy, use of Dimension [place] TBIL is not recommended. Protein [Mass/Vol] 7.7 g/dL 6.4-8.2 [facility] Laboratory - Chemistry and C hemistry - challengeOrdered By: Karol Mari on 05-23-2023 ALP [Catalytic activity/Vol] 42 U/L 45-117 [facility] ALT [Catalytic activity/Vol] 35 U/L 16-61 [facility] Globulin (S) [Mass/Vol] 3.5 g/dL 2.2-4.2 [facility] No Panel InformationOrdered By: Kay Yoo on 05-23-2023 D-Dimer Quantitative (PE/DVT) < 0.27 FEU/ug/m 0.27-0.49 [facility] Comment on above: NORMAL D-Dimer level (<0.50) indicates no DVT or PE. Fibrinogen 163 mg/dl 203-444 [facility] Review by pathologistOrdered By: Karol Mari on 05-23-2023 Pathologist review John (Unsp spec) [Interp] Reviewed [facility] Comment on above: Previous reported re sult: Audra remy Edited by: MARK on 05/23/23:1255Marked Thrombocytopenia.Clinical correlation necessary.Jaxon Randall M.D. 05/23/23 AMENDED REPORT 05/23/23 1255 PATH REV previously reported as: Audra remy Serum or plasma albumin ag urement (mass/volume)Ordered By: Karol Mari on 05-23-2023 Albumin [Mass/Vol] 4.2 g/dL 3.2-5.0 [facility] Serum or plasma albumin/glob ulin mass ratioOrdered By: Karol Mari on 05-23-2023 Albumin/Globulin [Mass ratio] 1.2 {ratio} 0.9-2.4 [facility] Thin prep Papanicolaou smear with manual screeningOrdered By: Karol White on 05-23-2023 Thin prep Papanicolaou smear with manual screening 9 U/L 15-37 [facility] Basophil percentageOrdered B y: Killian Elam on 05-22-2023 Basophil percentage TNP [facility] Comment on above: Test not performed LDH [Catalytic activity/Vol] 200 U/L 87-241 [facility] HIV 1 and HIV-2 antibody ass ay with HIV-1 p24 antigen detectionOrdered By: Killian Elam on 05-22-2023 HIV 1+2 Ab+HIV1 p24 Ag IA Ql Non-Reactive Nonreactive [facility] Hemoglobin in reticulocytes (mass per reticulocyte)Ordered By: Killian Elam on 05-22-2023 Hemoglobin (Reticulocytes) [Entitic mass] 35.1 pg 30-35 [facility] INR in Blood by Coagulation assayOrdered By: Killian Elam on 05-22-2023 INR Coag (Bld) [Relative time] 1.1 {INR} [facility] Laboratory - Chemistry and C hemistry - challengeOrdered By: Killian Elam on 05-22-2023 CK [Catalytic activity/Vol] 66 U/L 39-308 [facility] Laboratory - CoagulationOrde red By: Killian Elam on 05-22-2023 aPTT Coag (Bld) [Time] 31.9 s 24.1-36.[address] [facility] PT Coag (PPP) [Time] 14.7 s 11.7-14.9 [facility] No Panel InformationOrdered By: Killian Elam on 05-22-2023 Addendum Document Comment . [facility] Comment on above: The quantitative ran ge of this assay is 15 IU/mL to 100million IU/mL. Hepatitis C Antibody Non-Reactive Nonreactive [facility] Comment on above: Non Reactive: < 0.8 Equivocal: >/= 0.8 to < 1.0 Reactive: >/= 1.0The CDC recommends that a reactive/equivocal HCV antibody result be followed up by the HCV Nucleic Acid Amplificationtest (526605) Immature Platelet Fraction 22.5 % 1.0-7.9 [facility] Comment on above: Low PLT + Low IPF cameron ggest a bone marrow production disorderLow PLT + high IPF suggests peripheral destruction(e.g.ITP, TTP, HIT, DIC, autoimmune) or bone marrow recoveryTrending of serial IPF measurements is recommended when evaluating for bone marrow responesValue above normal range indicates an increase in RBC cellular response from bone marrow. Immature Reticulocyte Fraction 6.90 % 3.00-15.90 [facility] Reticulocyte Count 1.58 % 0.5-1.5 [facility] Serum or plasma hepatitis C virus RNA measurement by probe and target amplification mOrdered By: Killian Elam on 05-22-2023 HCV RNA CHIKIS+probe Qn Not detected . [facility] Thrombin time in platelet po or plasmaOrdered By: Killian Elam on 05-22-2023 Thrombin time Coag (PPP) [Time] 20.6 sec 0.0-23.0 [facility] Comment on above: Performed at: [address] [id number] Director: Xiao Craig MD, Phone: [phone] Absolute lymphocyte countOrd ered By: Jasper Payan on 05-21-2023 Lymphocytes Auto (Unsp spec) [#/Vol] 2.00 10*3/uL 0.83-4.51 [facility] Basophil percentageOrdered B y: Jasper Payan on 05-21-2023 LDH [Catalytic activity/Vol] 209 U/L 87-241 [facility] Basophil percentage 0 SEEN /hpf 0-5 [facility] Basophils/100 WBC (Bld) 0.3 % 0-1 [facility] Bilirubin [Mass/Vol] 0.90 mg/dL 0.20-1.00 [facility] Comment on above: For patients on eltr ombopag therapy, use of Dimension [place] TBIL is not recommended. Chloride [Moles/Vol] 108 mmol/L 98-107 [facility] Eosinophils/100 WBC (Bld) 0.5 % 0-5 [facility] Glucose [Mass/Vol] 97 mg/dL 74-106 [facility] Neutrophils (Bld) [#/Vol] 4.0 10*3/uL 2.0-7.7 [facility] Neutrophils/100 WBC (Bld) 61.9 % 47-70 [facility] Potassium [Moles/Vol] 4.1 mmol/L 3.5-5.1 [facility] Protein [Mass/Vol] 7.4 g/dL 6.4-8.2 [facility] Sodium [Moles/Vol] 138 mmol/L 136-145 [facility] WBC (Bld) [#/Vol] 6.5 10*3/uL 4.4-11.0 [facility] Bilirubin Test strip Ql (U)O rdered By: Jasper Payan on 05-21-2023 Bilirubin Ql (U) Negative Negative [facility] Blood erythrocytes count (nu mber/volume)Ordered By: Jasper Payan on 05-21-2023 RBC (Bld) [#/Vol] 5.00 10*6/uL 4.6-6.2 [facility] Blood hemoglobin measurement (mass/volume)Ordered By: Jasper Payan on 05-21-2023 Hemoglobin (Bld) [Mass/Vol] 15.5 g/dL 13.0-16.5 [facility] Blood lymphocytes/100 leukoc ytesOrdered By: Jasper Payan on 05-21-2023 Lymphocytes/100 WBC (Bld) 31.0 % 19-41 [facility] Blood manual differential co mment interpretation (narrative result)Ordered By: Jasper Payan on 05-21-2023 Manual differential comment John (Bld) [Interp] SCANNED [facility] Comment on above: THROMBOCYTOPENIA NOT ED Blood monocytes/100 leukocyt esOrdered By: Jasper Payan on 05-21-2023 Monocytes/100 WBC (Bld) 5.7 % 0-10 [facility] Blood platelet mean volumeOr dered By: Jasper Payan on 05-21-2023 Platelet mean volume (Bld) [Entitic vol] 13.5 fL 6.2-12.0 [facility] Determination of erythrocyte mean corpuscular volume (MCV)Ordered By: Jasper Payan on 05-21-2023 MCV (RBC) [Entitic vol] 91.0 fL 80-94 [facility] Hematocrit Auto (Bld) [Volum e fraction]Ordered By: Jasper Payan on 05-21-2023 Hematocrit (Bld) [Volume fraction] 45.5 % 40-54 [facility] INR in Blood by Coagulation assayOrdered By: Jasper Payan on 05-21-2023 INR Coag (Bld) [Relative time] 1.1 {INR} [facility] Ketones Test strip Ql (U)Ord ered By: Jasper Payan on 05-21-2023 Ketones Ql (U) Negative Negative [facility] Laboratory - Chemistry and C hemistry - challengeOrdered By: Jasper Payan on 05-21-2023 ALP [Catalytic activity/Vol] 40 U/L 45-117 [facility] ALT [Catalytic activity/Vol] 42 U/L 16-61 [facility] CO2 [Moles/Vol] 25.0 mmol/L 21.0-32.0 [facility] Globulin (S) [Mass/Vol] 3.3 g/dL 2.2-4.2 [facility] Urea nitrogen/Creatinine [Mass ratio] 10.0 mg/mg 10-20 [facility] Laboratory - CoagulationOrde red By: Jasper Payan on 05-21-2023 aPTT Coag (Bld) [Time] 30.7 s 24.1-36.[address] [facility] PT Coag (PPP) [Time] 14.4 s 11.7-14.9 [facility] Laboratory - Hematology and Cell countsOrdered By: Jasper Payan on 05-21-2023 Erythrocyte distribution width (RBC) [Entitic vol] 43.1 fL 35.1-43.9 [facility] Erythrocyte distribution width (RBC) [Ratio] 13.1 % 11.6-14.6 [facility] Immature granulocytes/100 WBC (Bld) 0.600 % 0.0-0.9 [facility] Comment on above: IG% - Immature Granu locytes (promyelocytes, myelocytes and metamyelocytes) > 1% indicates that a LEFT SHIFT is Present. MCH (RBC) [Entitic mass] 31.0 pg 27.0-32.0 [facility] Nucleated RBC/100 WBC (Bld) [Ratio] 0 % 0-5 [facility] MCHC Auto (RBC) [Mass/Vol]Or dered By: Jasper Payan on 05-21-2023 MCHC (RBC) [Mass/Vol] 34.1 g/dL 32-36 [facility] Mucus LM Ql (Urine sed)Order ed By: Jasper Payan on 05-21-2023 Mucus Ql (Urine sed) 0 SEEN /hpf [facility] Nitrite Test strip Ql (U)Ord ered By: Jasper Payan on 05-21-2023 Nitrite Ql (U) Negative Negative [facility] No Panel InformationOrdered By: Jasper Payan on 05-21-2023 Haptoglobin 38 mg/dL 17-317 [facility] Comment on above: Performed at: [facility] [place] [id number] Director: Sheamr Leigh PhD, Phone: [phone] Estimated Creatinine Clearance Calc 119.64 ml/min [facility] Estimated GFR (MDRD) Amer 120 mL/min >60 [facility] Comment on above: GFR Calc Estimated GFR (MDRD) Non-Af Amer 99 mL/min >60 [facility] Comment on above: Non- GFR Calc Platelets bldOrdered By: Belen Payan on 05-21-2023 Platelets (Bld) [#/Vol] 24 10*3/uL 150-450 [facility] Comment on above: CRITICAL VALUE VERIF IED. CALLED TO [id number]/08/23 1852 Gracie Watts.RESULTS READ BACK BY SAME . Protein Test strip Ql (U)Ord ered By: Jasper Payan on 05-21-2023 Protein Ql (U) 15 mg/dl Negative [facility] Review by pathologistOrdered By: Jasper Payan on 05-21-2023 Pathologist review John (Unsp spec) [Interp] May foll [facility] Serum or plasma albumin ag urement (mass/volume)Ordered By: Jasper Payan on 05-21-2023 Albumin [Mass/Vol] 4.1 g/dL 3.2-5.0 [facility] Serum or plasma albumin/glob ulin mass ratioOrdered By: Jasper Payan on 05-21-2023 Albumin/Globulin [Mass ratio] 1.2 {ratio} 0.9-2.4 [facility] Serum or plasma calcium ag urement (mass/volume)Ordered By: Jasper Payan on 05-21-2023 Calcium [Mass/Vol] 9.1 mg/dL 8.5-10.1 [facility] Serum or plasma creatinine m easurement (mass/volume)Ordered By: Jasper Payan on 05-21-2023 Creatinine [Mass/Vol] 1.00 mg/dL 0.70-1.30 [facility] Comment on above: The validity of the calculated GFR & GFRAA in patients over 70 years has not been determined. Clinical correlation is essential. Serum or plasma urea nitroge n measurement (mass/volume)Ordered By: Jasper Payan on 05-21-2023 Urea nitrogen [Mass/Vol] 10 mg/dL 7-18 [facility] Squamous epithelial cells de tection in urine sediment by light microscopyOrdered By: Jasper Payan on 05-21-2023 Epithelial cells.squamous LM Ql (Urine sed) 0 SEEN /hpf 0-5 [facility] Thin prep Papanicolaou smear with manual screeningOrdered By: Jasper Payan on 05-21-2023 Thin prep Papanicolaou smear with manual screening 14 U/L 15-37 [facility] Thin prep Papanicolaou smear with manual screening 5 5-15 [facility] Urine blood detectionOrdered By: Jasper Payan on 05-21-2023 RBC Ql (U) Negative Negative [facility] RBC Ql (U) 0 SEEN /hpf 0-5 [facility] Urine clarityOrdered By: Belen Payan on 05-21-2023 Clarity (U) Clear Clear [facility] Urine color determinationOrd ered By: Jasper Payan on 05-21-2023 Color (U) Yellow Yellow [facility] Urine glucose detectionOrder ed By: Jasper Payan on 05-21-2023 Glucose Ql (U) Normal mg/dl Normal [facility] Urine leukocyte esterase det ection by dipstickOrdered By: Jasper Payan on 05-21-2023 Leukocyte esterase Test strip Ql (U) Negative Negative [facility] Urine pHOrdered By: Jasper nuñez on 05-21-2023 pH (U) 8.0 [pH] 5.0 - 8.0 [facility] Urine sediment bacteria coun t by microscopy (number/high power field)Ordered By: Jasper Payan on 05-21-2023 Bacteria LM.HPF (Urine sed) [#/Area] 0 /[HPF] None Seen [facility] Urine specific gravity measu rementOrdered By: Jasper Payan on 05-21-2023 Specific gravity (U) [Rel density] 1.010 1.002-1.030 [facility] Urobilinogen Auto test strip Ql (U)Ordered By: Jasper Payan on 05-21-2023 Urobilinogen Ql (U) 1 mg/dl Normal [facility] Vital Signs Date Time Vital Sign Value Performing Clinician Faci lity 07-07-2024 17:43-0400 Body height 172.8 cm Mariusz Allen MD Work Phone: [facility] 07-07-2024 17:43-0400 Body mass index (BMI) [Ratio] 26.71 kg/m2 Mariusz Allen MD Work Phone: [facility] 07-07-2024 17:43-0400 Body weight 79.74 kg Mariusz Allen MD Work Phone: [facility] 07-07-2024 17:43-0400 Diastolic blood pressure 62 mm[Hg] Mariusz Allen MD Work Phone: [facility] 07-07-2024 17:43-0400 Heart rate 83 /min Mariusz Allen MD Work Phone: [facility] 07-07-2024 17:43-0400 Respiratory rate 16 /min Mariusz Allen MD Work Phone: [facility] 07-07-2024 17:43-0400 SaO2% (BldA) [Mass fraction] 99 % Mariusz Allen MD Work Phone: [facility] 07-07-2024 17:43-0400 Systolic blood pressure 110 mm[Hg] Mariusz Allen MD Work Phone: [facility] 05-25-2024 09:11-0400 Body mass index (BMI) [Ratio] 25.32 kg/m2 Treatment Wstr Work Phone: [facility] 05-25-2024 09:11-0400 Body temperature 97.81 [degF] Treatment Wstr Work Phone: [facility] 05-25-2024 09:11-0400 Body weight 76.66 kg Treatment Wstr Work Phone: [facility] 05-25-2024 09:11-0400 Diastolic blood pressure 76 mm[Hg] Treatment Wstr Work Phone: [facility] 05-25-2024 09:11-0400 Heart rate 91 /min Treatment Wstr Work Phone: [facility] 05-25-2024 09:11-0400 SaO2% (BldA) [Mass fraction] 99 % Treatment Wstr Work Phone: [facility] 05-25-2024 09:11-0400 Systolic blood pressure 125 mm[Hg] Treatment Wstr Work Phone: [facility] 04-13-2024 09:53-0400 Body temperature 98.6 [degF] Treatment Wstr Work Phone: [facility] 04-13-2024 09:53-0400 Diastolic blood pressure 74 mm[Hg] Treatment Wstr Work Phone: [facility] 04-13-2024 09:53-0400 Heart rate 88 /min Treatment Wstr Work Phone: [facility] 04-13-2024 09:53-0400 SaO2% (BldA) [Mass fraction] 94 % Treatment Wstr Work Phone: [facility] 04-13-2024 09:53-0400 Systolic blood pressure 133 mm[Hg] Treatment Wstr Work Phone: [facility] 04-09-2024 08:34-0400 Body mass index (BMI) [Ratio] 25.92 kg/m2 Killian Elam DO Work Phone: [facility] 04-09-2024 08:34-0400 Body temperature 97.11 [degF] Killian Elam DO Work Phone: [facility] 04-09-2024 08:34-0400 Body weight 78.47 kg Killian Thompsoni DO Work Phone: [facility] 04-09-2024 08:34-0400 Diastolic blood pressure 68 mm[Hg] Killian Donnai DO Work Phone: [facility] 04-09-2024 08:34-0400 Heart rate 60 /min Killian Thompsoni DO Work Phone: [facility] 04-09-2024 08:34-0400 SaO2% (BldA) [Mass fraction] 98 % Killian Thompsoni DO Work Phone: [facility] 04-09-2024 08:34-0400 Systolic blood pressure 117 mm[Hg] Killian Thompsoni DO Work Phone: [facility] 03-19-2024 08:00-0400 Body mass index (BMI) [Ratio] 24.12 kg/m2 Treatment Wstr Work Phone: [facility] 03-19-2024 08:00-0400 Body temperature 99.1 [degF] Treatment Wstr Work Phone: [facility] 03-19-2024 08:00-0400 Body weight 73.03 kg Treatment Wstr Work Phone: [facility] 03-19-2024 08:00-0400 Diastolic blood pressure 74 mm[Hg] Treatment Wstr Work Phone: [facility] 03-19-2024 08:00-0400 Heart rate 93 /min Treatment Wstr Work Phone: [facility] 03-19-2024 08:00-0400 Systolic blood pressure 112 mm[Hg] Treatment Wstr Work Phone: [facility] 03-06-2024 10:34-0400 Body mass index (BMI) [Ratio] 23.67 kg/m2 Treatment Wstr Work Phone: [facility] 03-06-2024 10:34-0400 Body temperature 98.6 [degF] Treatment Wstr Work Phone: [facility] 03-06-2024 10:34-0400 Body weight 71.67 kg Treatment Wstr Work Phone: [facility] 03-06-2024 10:34-0400 Diastolic blood pressure 78 mm[Hg] Treatment Wstr Work Phone: [facility] 03-06-2024 10:34-0400 Heart rate 81 /min Treatment Wstr Work Phone: [facility] 03-06-2024 10:34-0400 SaO2% (BldA) [Mass fraction] 100 % Treatment Wstr Work Phone: [facility] 03-06-2024 10:34-0400 Systolic blood pressure 129 mm[Hg] Treatment Wstr Work Phone: [facility] 02-17-2024 08:06-0400 Body temperature 97.9 [degF] Treatment Wstr Work Phone: [facility] 02-17-2024 08:06-0400 Diastolic blood pressure 85 mm[Hg] Treatment Wstr Work Phone: [facility] 02-17-2024 08:06-0400 Heart rate 103 /min Treatment Wstr Work Phone: [facility] 02-17-2024 08:06-0400 SaO2% (BldA) [Mass fraction] 100 % Treatment Wstr Work Phone: [facility] 02-17-2024 08:06-0400 Systolic blood pressure 121 mm[Hg] Treatment Wstr Work Phone: [facility] 02-14-2024 14:28-0400 Body mass index (BMI) [Ratio] 22.7 kg/m2 Killian Masci DO Work Phone: [facility] 02-14-2024 14:28-0400 Body temperature 99.81 [degF] Killian Masci DO Work Phone: [facility] 02-14-2024 14:28-0400 Body weight 68.72 kg Killian Masci DO Work Phone: [facility] 02-14-2024 14:28-0400 Diastolic blood pressure 78 mm[Hg] Killian Thompsoni DO Work Phone: [facility] 02-14-2024 14:28-0400 Heart rate 133 /min Killian Thompsoni DO Work Phone: [facility] 02-14-2024 14:28-0400 SaO2% (BldA) [Mass fraction] 96 % Killian Thompsoni DO Work Phone: [facility] 02-14-2024 14:28-0400 Systolic blood pressure 130 mm[Hg] Killian Donnai DO Work Phone: [facility] 01-20-2024 08:46-0400 Body temperature 97.59 [degF] Treatment Wstr Work Phone: [facility] 01-20-2024 08:46-0400 Diastolic blood pressure 74 mm[Hg] Treatment Wstr Work Phone: [facility] 01-20-2024 08:46-0400 Heart rate 82 /min Treatment Wstr Work Phone: [facility] 01-20-2024 08:46-0400 Respiratory rate 16 /min Treatment Wstr Work Phone: [facility] 01-20-2024 08:46-0400 SaO2% (BldA) [Mass fraction] 100 % Treatment Wstr Work Phone: [facility] 01-20-2024 08:46-0400 Systolic blood pressure 120 mm[Hg] Treatment Wstr Work Phone: [facility] 01-17-2024 12:59-0400 Body temperature 98.49 [degF] Gracie Wuight Work Phone: [facility] 01-17-2024 12:59-0400 Body weight 77.79 kg Gracie Norris Work Phone: [facility] 01-17-2024 12:59-0400 Diastolic blood pressure 58 mm[Hg] Gracie Norris Work Phone: [facility] 01-17-2024 12:59-0400 Heart rate 72 /min Gracie Norris Work Phone: [facility] 01-17-2024 12:59-0400 SaO2% (BldA) [Mass fraction] 98 % Gracie Norris Work Phone: [facility] 01-17-2024 12:59-0400 Systolic blood pressure 113 mm[Hg] Gracie Norris Work Phone: [facility] 12-28-2023 11:26-0400 Body temperature 97.6 [degF] [facility] 12-28-2023 11:26-0400 Diastolic blood pressure 61 mm[Hg] [facility] 12-28-2023 11:26-0400 Heart rate 71 /min [facility] 12-28-2023 11:26-0400 Respiratory rate 16 /min [facility] 12-28-2023 11:26-0400 SaO2% (BldA) [Mass fraction] 99 % [facility] 12-28-2023 11:26-0400 Systolic blood pressure 124 mm[Hg] [facility] 12-28-2023 09:11-0400 Body height 175.26 cm [facility] 12-28-2023 09:11-0400 Body mass index (BMI) [Ratio] 24.3 kg/m2 [facility] 12-28-2023 09:11-0400 Body weight 74.84 kg [facility] 12-27-2023 10:00-0400 Body temperature 97.39 [degF] Treatment Wstr Work Phone: [facility] 12-27-2023 10:00-0400 Diastolic blood pressure 71 mm[Hg] Treatment Wstr Work Phone: [facility] 12-27-2023 10:00-0400 Heart rate 92 /min Treatment Wstr Work Phone: [facility] 12-27-2023 10:00-0400 Systolic blood pressure 113 mm[Hg] Treatment Wstr Work Phone: [facility] 12-26-2023 11:27-0400 Body temperature 97.59 [degF] Treatment Wstr Work Phone: [facility] 12-26-2023 11:27-0400 Body weight 74.39 kg Treatment Wstr Work Phone: [facility] 12-26-2023 11:27-0400 Diastolic blood pressure 66 mm[Hg] Treatment Wstr Work Phone: [facility] 12-26-2023 11:27-0400 Heart rate 67 /min Treatment Wstr Work Phone: [facility] 12-26-2023 11:27-0400 SaO2% (BldA) [Mass fraction] 100 % Treatment Wstr Work Phone: [facility] 12-26-2023 11:27-0400 Systolic blood pressure 111 mm[Hg] Treatment Wstr Work Phone: [facility] 12-20-2023 09:10-0500 Body temperature 97.5 [degF] Treatment Wstr Work Phone: [facility] 12-20-2023 09:10-0500 Diastolic blood pressure 62 mm[Hg] Treatment Wstr Work Phone: [facility] 12-20-2023 09:10-0500 Heart rate 55 /min Treatment Wstr Work Phone: [facility] 12-20-2023 09:10-0500 SaO2% (BldA) [Mass fraction] 100 % Treatment Wstr Work Phone: [facility] 12-20-2023 09:10-0500 Systolic blood pressure 108 mm[Hg] Treatment Wstr Work Phone: [facility] 12-06-2023 15:50-0500 Body temperature 99.6 [degF] [facility] 12-06-2023 15:50-0500 Diastolic blood pressure 76 mm[Hg] [facility] 12-06-2023 15:50-0500 Heart rate 91 /min [facility] 12-06-2023 15:50-0500 Respiratory rate 14 /min [facility] 12-06-2023 15:50-0500 SaO2% (BldA) [Mass fraction] 98 % [facility] 12-06-2023 15:50-0500 Systolic blood pressure 102 mm[Hg] [facility] 12-06-2023 09:26-0500 Body height 175.26 cm [facility] 12-06-2023 09:26-0500 Body mass index (BMI) [Ratio] 24 kg/m2 [facility] 12-06-2023 09:26-0500 Body weight 73.98 kg [facility] 11-29-2023 13:00-0500 Diastolic blood pressure 64 mm[Hg] Treatment Wstr Work Phone: [facility] 11-29-2023 13:00-0500 Heart rate 74 /min Treatment Wstr Work Phone: [facility] 11-29-2023 13:00-0500 Systolic blood pressure 118 mm[Hg] Treatment Wstr Work Phone: [facility] 11-29-2023 09:04-0500 Body temperature 98.1 [degF] Treatment Wstr Work Phone: [facility] 11-29-2023 09:04-0500 Body weight 74.39 kg Treatment Wstr Work Phone: [facility] 11-29-2023 09:04-0500 SaO2% (BldA) [Mass fraction] 100 % Treatment Wstr Work Phone: [facility] 11-22-2023 14:22-0500 Diastolic blood pressure 71 mm[Hg] Treatment Wstr Work Phone: [facility] 11-22-2023 14:22-0500 Heart rate 97 /min Treatment Wstr Work Phone: [facility] 11-22-2023 14:22-0500 Respiratory rate 18 /min Treatment Wstr Work Phone: [facility] 11-22-2023 14:22-0500 SaO2% (BldA) [Mass fraction] 100 % Treatment Wstr Work Phone: [facility] 11-22-2023 14:22-0500 Systolic blood pressure 117 mm[Hg] Treatment Wstr Work Phone: [facility] 11-22-2023 11:54-0500 Body temperature 98.49 [degF] Treatment Wstr Work Phone: [facility] 11-18-2023 15:25-0500 Body temperature 99.1 [degF] Klilian Masci DO Work Phone: [facility] 11-18-2023 15:25-0500 Body weight 74.16 kg Killian Masci DO Work Phone: [facility] 11-18-2023 15:25-0500 Diastolic blood pressure 83 mm[Hg] Killian Masci DO Work Phone: [facility] 11-18-2023 15:25-0500 Heart rate 76 /min Killian Masci DO Work Phone: [facility] 11-18-2023 15:25-0500 SaO2% (BldA) [Mass fraction] 100 % Killian Masci DO Work Phone: [facility] 11-18-2023 15:25-0500 Systolic blood pressure 138 mm[Hg] Killian Masci DO Work Phone: [facility] 10-02-2023 09:38-0500 Body temperature 97.7 [degF] Killian Masci DO Work Phone: [facility] 10-02-2023 09:38-0500 Body weight 77.79 kg Killian Masci DO Work Phone: [facility] 10-02-2023 09:38-0500 Diastolic blood pressure 68 mm[Hg] Killian Masci DO Work Phone: [facility] 10-02-2023 09:38-0500 Heart rate 61 /min Killian Masci DO Work Phone: [facility] 10-02-2023 09:38-0500 SaO2% (BldA) [Mass fraction] 99 % Killian Masci DO Work Phone: [facility] 10-02-2023 09:38-0500 Systolic blood pressure 128 mm[Hg] Killian Masci DO Work Phone: [facility] 09-06-2023 10:12-0500 Body temperature 98.29 [degF] Killian Masci DO Work Phone: [facility] 09-06-2023 10:12-0500 Body weight 75.07 kg Killian Masci DO Work Phone: [facility] 09-06-2023 10:12-0500 Diastolic blood pressure 78 mm[Hg] Killian Masci DO Work Phone: [facility] 09-06-2023 10:12-0500 Heart rate 77 /min Killian Masci DO Work Phone: [facility] 09-06-2023 10:12-0500 SaO2% (BldA) [Mass fraction] 100 % Killian Masci DO Work Phone: [facility] 09-06-2023 10:12-0500 Systolic blood pressure 136 mm[Hg] Killian Masci DO Work Phone: [facility] 07-02-2023 14:07-0400 Body temperature 98.8 [degF] Killian Masci DO Work Phone: [facility] 07-02-2023 14:07-0400 Body weight 73.94 kg Killian Masci DO Work Phone: [facility] 07-02-2023 14:07-0400 Diastolic blood pressure 71 mm[Hg] Killian Masci DO Work Phone: [facility] 07-02-2023 14:07-0400 Heart rate 77 /min Killian Masci DO Work Phone: [facility] 07-02-2023 14:07-0400 SaO2% (BldA) [Mass fraction] 99 % Killian Masci DO Work Phone: [facility] 07-02-2023 14:07-0400 Systolic blood pressure 122 mm[Hg] Killian Masci DO Work Phone: [facility] 06-27-2023 08:12-0400 Body temperature 97.5 [degF] Treatment Wstr Work Phone: [facility] 06-27-2023 08:12-0400 Diastolic blood pressure 62 mm[Hg] Treatment Wstr Work Phone: [facility] 06-27-2023 08:12-0400 Heart rate 72 /min Treatment Wstr Work Phone: [facility] 06-27-2023 08:12-0400 Respiratory rate 16 /min Treatment Wstr Work Phone: [facility] 06-27-2023 08:12-0400 SaO2% (BldA) [Mass fraction] 100 % Treatment Wstr Work Phone: [facility] 06-27-2023 08:12-0400 Systolic blood pressure 108 mm[Hg] Treatment Wstr Work Phone: [facility] 06-26-2023 10:04-0400 Body temperature 97.81 [degF] Treatment Wstr Work Phone: [facility] 06-26-2023 10:04-0400 Body weight 76.2 kg Treatment Wstr Work Phone: [facility] 06-26-2023 10:04-0400 Diastolic blood pressure 75 mm[Hg] Treatment Wstr Work Phone: [facility] 06-26-2023 10:04-0400 Heart rate 96 /min Treatment Wstr Work Phone: [facility] 06-26-2023 10:04-0400 Systolic blood pressure 121 mm[Hg] Treatment Wstr Work Phone: [facility] 06-18-2023 15:20-0400 Body temperature 98.49 [degF] Killian Elam DO Work Phone: [facility] 06-18-2023 15:20-0400 Body weight 75.07 kg Killian Elam DO Work Phone: [facility] 06-18-2023 15:20-0400 Diastolic blood pressure 76 mm[Hg] Killian Elam DO Work Phone: [facility] 06-18-2023 15:20-0400 Heart rate 90 /min Killian Masci DO Work Phone: [facility] 06-18-2023 15:20-0400 SaO2% (BldA) [Mass fraction] 98 % Killian Masci DO Work Phone: [facility] 06-18-2023 15:20-0400 Systolic blood pressure 121 mm[Hg] Killian Masci DO Work Phone: [facility] 05-27-2023 08:44-0400 Body height 174 cm Killian Masci DO Work Phone: [facility] 05-27-2023 08:44-0400 Body temperature 98.71 [degF] Killian Masci DO Work Phone: [facility] 05-27-2023 08:44-0400 Body weight 80.74 kg Killian Masci DO Work Phone: [facility] 05-27-2023 08:44-0400 Diastolic blood pressure 68 mm[Hg] Killian Masci DO Work Phone: [facility] 05-27-2023 08:44-0400 Heart rate 74 /min Killian Masci DO Work Phone: [facility] 05-27-2023 08:44-0400 SaO2% (BldA) [Mass fraction] 98 % Killian Masci DO Work Phone: [facility] 05-27-2023 08:44-0400 Systolic blood pressure 118 mm[Hg] Killian Thompsoni DO Work Phone: [facility] 05-24-2023 14:00-0400 Body temperature 97.9 [degF] Dr. Jasper Payan Work Phone: [facility] 05-24-2023 14:00-0400 Diastolic blood pressure 54 mm[Hg] Dr. Jasper Payan Work Phone: [facility] 05-24-2023 14:00-0400 Heart rate 78 /min Dr. Jasper Payan Work Phone: [facility] 05-24-2023 14:00-0400 Respiratory rate 16 /min Dr. Jasper Payan Work Phone: [facility] 05-24-2023 14:00-0400 SaO2% (BldA) [Mass fraction] 100 % Dr. Jasper Payan Work Phone: [facility] 05-24-2023 14:00-0400 Systolic blood pressure 110 mm[Hg] Dr. Jasper Payan Work Phone: [facility] 05-24-2023 06:00-0400 Body mass index (BMI) [Ratio] 24.3 kg/m2 Dr. Jasper Payan Work Phone: 4(960)486-136911 [place] [address] 05-24-2023 06:00-0400 Body weight 77.[address] Jasper Payan Work Phone: 3(596)243-992911 [place] [address] 05-23-2023 09:30-0400 Inhaled oxygen flow rate 34 L/min Dr. Jasper Payan Work Phone: [facility] 05-22-2023 13:00-0400 Body height 177.[address] Jasper Payan Work Phone: 1(375)525-487811 [place] [address] 05-22-2023 05:39-0400 Body temperature 96.7 [degF] Dr. Jasper Payan Work Phone: [facility] 05-22-2023 05:39-0400 Diastolic blood pressure 75 mm[Hg] Dr. Jasper Payan Work Phone: [facility] 05-22-2023 05:39-0400 Heart rate 68 /min Dr. Jasper Payan Work Phone: 9(408)390-740911 [place] [address] 05-22-2023 05:39-0400 Respiratory rate 15 /min Dr. Jasper Payan Work Phone: [facility] 05-22-2023 05:39-0400 SaO2% (BldA) [Mass fraction] 98 % Dr. Jasper Payan Work Phone: 4(070)481-581611 [place] [address] 05-22-2023 05:39-0400 Systolic blood pressure 125 mm[Hg] Dr. Jasper Payan Work Phone: [facility] 05-21-2023 17:28-0400 Body height 177.[address] Jasper Payan Work Phone: [facility] 05-21-2023 17:28-0400 Body mass index (BMI) [Ratio] 23.5 kg/m2 Dr. Jasper Payan Work Phone: [facility] 05-21-2023 17:28-0400 Body weight 74.[address] Jasper Payan Work Phone: [facility] Encounters Encounter Date Encounter Type Care Provider Facility Start: 12-08-2024 End: 12-14-2024 ambulatory [facility] H[facility]ology[facility]Oncology Comment on above: Labwork Start: 12-08-2024 End: 12-14-2024 E-mail encounter from caregiver [facility] Hematology/Oncology Start: 09-29-2024 End: 01-20-2025 Telephone encounter Mariusz Allen MD Work Phone: [facility] Comment on above: Results Start: 09-28-2024 End: 09-28-2024 ambulatory MARIUSZ ALLEN Facility:[facility] Start: 09-28-2024 Encounter for genera l adult medical examination without abnormal findings MARIUSZ ALLEN [facility] Start: 07-30-2024 End: 07-30-2024 E-mail encounter from caregiver Killian Elam DO Work Phone: Hematology/Oncology Start: 07-30-2024 End: 08-04-2024 Telephone encounter Killian Thompsoni DO Work Phone: Hematology/Oncology Comment on above: promacta Medication Start: 07-30-2024 End: 07-30-2024 ambulatory Killian Thompsoni DO Work Phone: Hematology/Oncology Comment on above: Promacta Start: 07-20-2024 End: 07-28-2024 ambulatory Killian Thompsoni DO Work Phone: Hematology/Oncology Comment on above: labs Start: 07-20-2024 End: 07-28-2024 E-mail encounter from caregiver Killian Elam DO Work Phone: Hematology/Oncology Start: 07-07-2024 End: 07-07-2024 Patient encounter procedure Mariusz Allen MD Work Phone: [facility] Comment on above: Encounter for medica l examination to establish care (Primary Dx); Anxiety with depression; Chronic ITP (idiopathic thrombocytopenia) (HCC); Tinea versicolor Start: 07-07-2024 End: 07-07-2024 Patient encounter status Mariusz Allen MD Work Phone: [facility] Work Phone: Start: 07-07-2024 End: 07-07-2024 ambulatory MARIUSZ ALLEN Facility:[facility] Start: 07-01-2024 ambulatory No Primary Car e Physician Facility:[facility] Start: 07-01-2024 End: 07-03-2024 Evaluation and management of inpatient Suresh Oneill Facility:[facility] Start: 06-24-2024 End: 06-24-2024 Telephone encounter Neeta THORNTON Hematology/Oncology Comment on above: [employer] Assistance Start: 06-19-2024 End: 06-19-2024 ambulatory SELF Facility:[facility] Start: 06-08-2024 End: 07-20-2024 Telephone encounter Killian Elam DO Work Phone: Hematology/Oncology Comment on above: Missed Labs Start: 05-25-2024 End: 05-25-2024 ambulatory Treatment Rm 10 [facility]es [facility] Work Phone: Hematology/Oncology Comment on above: Chronic ITP (idiopat hic thrombocytopenia) (HCC) (Primary Dx) Start: 05-22-2024 End: 05-22-2024 ambulatory SELF Facility:[facility] Start: 05-20-2024 Telephone encounter Killian fraser DO Work Phone: Hematology/Oncology Comment on above: Appointment Start: 05-17-2024 Telephone encounter Killian fraser DO Work Phone: Hematology/Oncology Comment on above: Results Start: 05-15-2024 End: 05-15-2024 ambulatory KILLIAN ELAM Facility:[facility] Start: 05-14-2024 Telephone encounter Killian fraser DO Work Phone: Hematology/Oncology Start: 05-07-2024 End: 05-07-2024 ambulatory [facility] Facility:[facility] Start: 05-01-2024 End: 05-01-2024 ambulatory [facility] Facility:[facility] Start: 04-24-2024 End: 04-24-2024 ambulatory [facility] Facility:[facility] Start: 04-20-2024 Telephone encounter Neeta THORNTON Hematology/Oncology Comment on above: Social Work Services ; [employer] Assistance Pt Symptoms Start: 04-13-2024 Telephone encounter Killian fraser DO Work Phone: Hematology/Oncology Comment on above: Patient Update Start: 04-13-2024 End: 04-13-2024 ambulatory Treatment Rm 12 Ramses [facility] Work Phone: Hematology/Oncology Comment on above: Chronic ITP (idiopat hic thrombocytopenia) (HCC) (Primary Dx) Start: 04-09-2024 End: 04-09-2024 [facility] Comment on above: [employer] Patient Ass istance Chronic ITP (idiopat hic thrombocytopenia) (HCC) (Primary Dx) Start: 04-09-2024 E-mail encounter fro m caregiver Brayan Lanier [facility] Start: 04-09-2024 End: 04-09-2024 Patient encounter procedure Killian Elam DO Work Phone: Hematology/Oncology Start: 04-07-2024 ambulatory Neeta THORNTON matology/Oncology Comment on above: Promacta - Need more Info Start: 04-07-2024 E-mail encounter fro m caregiver Neeta THORNTON Hematology/Oncology Start: 04-06-2024 Telephone encounter Killian fraser DO Work Phone: Hematology/Oncology Start: 04-02-2024 End: 04-02-2024 ambulatory [facility] Facility:[facility] Start: 03-26-2024 Telephone encounter Killian fraser DO Work Phone: Hematology/Oncology Start: 03-26-2024 End: 03-26-2024 ambulatory [facility] Facility:[facility] Start: 03-19-2024 End: 03-19-2024 ambulatory Treatment Rm 9 Ramses [facility] Work Phone: Hematology/Oncology Comment on above: Chronic ITP (idiopat hic thrombocytopenia) (HCC) (Primary Dx) Start: 03-12-2024 Telephone encounter Neeta THORNTON Hematology/Oncology Comment on above: [employer] Patient Ass istance Start: 03-12-2024 End: 03-12-2024 ambulatory [facility] Facility:[facility] Start: 03-06-2024 End: 03-06-2024 ambulatory Treatment Rm 8 [facility] Work Phone: Hematology/Oncology Comment on above: Acute ITP (HCC) (Cammie herson Dx) Start: 03-05-2024 Telephone encounter Killian fraser DO Work Phone: Hematology/Oncology Comment on above: Results Start: 03-05-2024 End: 03-05-2024 ambulatory [facility] Facility:[facility] Start: 02-27-2024 End: 02-27-2024 ambulatory [facility] Facility:[facility] Start: 02-20-2024 Telephone encounter Killian fraser DO Work Phone: Hematology/Oncology Comment on above: Appointment Start: 02-20-2024 End: 02-20-2024 ambulatory [facility] Facility:[facility] Start: 02-17-2024 End: 02-17-2024 ambulatory Treatment Rm 1 Ramses [facility] Work Phone: Hematology/Oncology Comment on above: Chronic ITP (idiopat hic thrombocytopenia) (HCC) (Primary Dx) Start: 02-14-2024 End: 02-14-2024 Patient encounter procedure Killian Elam DO Work Phone: Hematology/Oncology Start: 02-14-2024 End: 02-14-2024 ambulatory Killian Elam DO Work Phone: Hematology/Oncology Comment on above: Acute ITP (HCC) (Cammie herson Dx) Start: 02-13-2024 Refill Killian Bonilla Work Phone: Hematology/Oncology Comment on above: Refill Request (Prom acta to cover my meds specialty pharmacy) Start: 02-10-2024 Telephone encounter Killian fraser DO Work Phone: Hematology/Oncology Comment on above: Patient Update (Loreto carpenter at [facility] [phone].) Start: 02-06-2024 End: 02-06-2024 ambulatory MARIUSZ ALLEN Facility:[facility] Start: 01-30-2024 Telephone encounter Killian fraser DO Work Phone: Hematology/Oncology Comment on above: Results Start: 01-30-2024 End: 01-30-2024 ambulatory GRACIE NORRIS Facility:[facility] Start: 01-23-2024 Telephone encounter Gracie walton Work Phone: Hematology/Oncology Start: 01-20-2024 End: 01-20-2024 ambulatory Treatment Rm 3 Ramses [facility] Work Phone: Hematology/Oncology Comment on above: Chronic ITP (idiopat hic thrombocytopenia) (HCC) (Primary Dx) Start: 01-17-2024 End: 01-17-2024 ambulatory Gracie Norris Work Phone: Hematology/Oncology Comment on above: Chronic ITP (idiopat hic thrombocytopenia) (HCC) Start: 01-17-2024 End: 01-17-2024 Patient encounter procedure Gracie Norris Work Phone: [facility] Start: 01-15-2024 Orders Only Gracie Norris Work Phone: Hematology/Oncology Comment on above: Chronic ITP (idiopat hic thrombocytopenia) (HCC) (Primary Dx) Start: 12-28-2023 End: 12-28-2023 Emergency department patient visit [facility] Work Phone: Start: 12-27-2023 End: 12-27-2023 ambulatory Treatment Rm 1 Ramses [facility] Work Phone: Hematology/Oncology Comment on above: Chronic ITP (idiopat hic thrombocytopenia) (HCC) (Primary Dx); Acute ITP (HCC) Start: 12-26-2023 Telephone encounter Killian fraser DO Work Phone: Hematology/Oncology Comment on above: Appointment Start: 12-26-2023 End: 12-26-2023 ambulatory Treatment Rm 5 Ramses [facility] Work Phone: Hematology/Oncology Comment on above: Acute ITP (HCC) (Cammie herson Dx) Start: 12-24-2023 ambulatory Brayan Sterling mancia [facility] Start: 12-24-2023 Patient encounter procedure Brayan Yolande [facility] Comment on above: SPP Oral Oncology/he matology - Treatment Referral (Promacta 50mg); Insurance Authorization; Insurance Inquiry (Pharmacy Insurance) Start: 12-20-2023 Telephone encounter Killian fraser DO Work Phone: Hematology/Oncology Comment on above: Patient Question Start: 12-20-2023 End: 12-20-2023 ambulatory Treatment Rm 5 Ramses [facility] Work Phone: Hematology/Oncology Comment on above: Chronic ITP (idiopat hic thrombocytopenia) (HCC) (Primary Dx) Start: 12-18-2023 Orders Only Killian Bonilla Work Phone: Hematology/Oncology Comment on above: Chronic ITP (idiopat hic thrombocytopenia) (HCC) (Primary Dx); Hypofibrinogenemia (HCC) Start: 12-10-2023 Telephone encounter Killian fraser DO Work Phone: Hematology/Oncology Comment on above: Results Start: 12-06-2023 End: 12-06-2023 Emergency department patient visit [facility] Work Phone: Start: 12-04-2023 Telephone encounter Olimpia Graves RN He matology/Oncology Comment on above: Custodial Officer - O ther (Follow-up ) Start: 11-29-2023 Telephone encounter Neeta THORNTON Hematology/Oncology Comment on above: Social Work Services Start: 11-29-2023 End: 11-29-2023 ambulatory Treatment Rm 5 Ramses [facility] Work Phone: Hematology/Oncology Comment on above: Chronic ITP (idiopat hic thrombocytopenia) (HCC) (Primary Dx) Start: 11-26-2023 Telephone encounter Olimpia Graves RN He matology/Oncology Comment on above: Custodial Officer - O ther (C1D1 Post Treatment Call (Rituxan)) Start: 11-22-2023 End: 11-22-2023 ambulatory Treatment Rm 5 Ramses [facility] Work Phone: Hematology/Oncology Comment on above: Chronic ITP (idiopat hic thrombocytopenia) (HCC) (Primary Dx) Start: 11-20-2023 Telephone encounter Olimpia Morrison matology/Oncology Comment on above: Custodial Officer - O ther (Chemo education ) Start: 11-18-2023 End: 11-18-2023 Office outpatient visit 25 minutes Killian Elam DO Work Phone: Hematology/Oncology Comment on above: Chronic ITP (idiopat hic thrombocytopenia) (HCC) (Primary Dx) Start: 11-18-2023 Telephone encounter Olimpia Morrison matology/Oncology Comment on above: Custodial Officer - O ther (Introduction ) Start: 10-03-2023 Telephone encounter Killian fraser DO Work Phone: Hematology/Oncology Comment on above: AVS 10/02; Patient Q uestion; Patient Update Start: 10-02-2023 End: 10-02-2023 Office outpatient visit 25 minutes Killian Elam DO Work Phone: Hematology/Oncology Comment on above: Chronic ITP (idiopat hic thrombocytopenia) (HCC) (Primary Dx) Start: 09-23-2023 Telephone encounter Killian fraser DO Work Phone: Hematology/Oncology Comment on above: Results Start: 09-09-2023 ambulatory Killian Ortiz O Work Phone: Hematology/Oncology Comment on above: Question Start: 09-06-2023 End: 09-06-2023 ambulatory Killian A Masci DO Work Phone: Hematology/Oncology Comment on above: Acute ITP (HCC) (Cammie herson Dx) Start: 09-06-2023 End: 09-06-2023 Patient encounter procedure Killian Elam DO Work Phone: [facility] Start: 08-22-2023 Telephone encounter Killian fraser DO Work Phone: Hematology/Oncology Comment on above: Follow Up Start: 08-06-2023 Telephone encounter Killian fraser DO Work Phone: Hematology/Oncology Start: 07-30-2023 Telephone encounter Killian fraser DO Work Phone: Hematology/Oncology Comment on above: Results Start: 07-26-2023 Orders Only Killian Elam D O Work Phone: Hematology/Oncology Comment on above: Acute ITP (HCC) (Cammie herson Dx) Start: 07-24-2023 Patient encounter procedure Alan Bowie MD Work Phone: Hematology/Oncology Comment on above: NO SHOW (Primary Dx) Start: 07-04-2023 Patient encounter procedure Alan Bowie MD Work Phone: Hematology/Oncology Comment on above: NO SHOW (Primary Dx) Start: 07-02-2023 End: 07-02-2023 ambulatory Killian Elam DO Work Phone: Hematology/Oncology Comment on above: Acute ITP (HCC) (Cammie herson Dx); Hypofibrinogenemia (HCC) Start: 07-02-2023 End: 07-02-2023 Patient encounter procedure Killian Elam DO Work Phone: [facility] Start: 07-02-2023 Telephone encounter Killian fraser DO Work Phone: Hematology/Oncology Comment on above: Follow Up Start: 06-27-2023 Telephone encounter Financial Navigator Ramses Work Phone: Financial Services Comment on above: Benefits Investigati on Start: 06-27-2023 End: 06-27-2023 ambulatory Treatment Rm 10 Ramses [facility] Work Phone: Hematology/Oncology Comment on above: Acute ITP (HCC) (Cammie herson Dx) Start: 06-26-2023 End: 06-26-2023 ambulatory Treatment Rm 9 Ramses [facility] Work Phone: Hematology/Oncology Comment on above: Acute ITP (HCC) (Cammie herson Dx) Start: 06-25-2023 Telephone encounter Killian fraser DO Work Phone: Hematology/Oncology Start: 06-18-2023 End: 06-18-2023 ambulatory Killian Elam DO Work Phone: Hematology/Oncology Comment on above: Acute ITP (HCC) (Cammie herson Dx); Muscle soreness; Splenomegaly Start: 06-18-2023 End: 06-18-2023 Patient encounter procedure Killian Elam DO Work Phone: [facility] Start: 06-18-2023 Telephone encounter Killian fraser DO Work Phone: Hematology/Oncology Comment on above: Results (Low potassi um) Start: 06-13-2023 Orders Only Killian Ortiz O Work Phone: Hematology/Oncology Comment on above: Acute ITP (HCC) (Cammie herson Dx); Hypofibrinogenemia (HCC) Start: 06-11-2023 Telephone encounter Killian fraser DO Work Phone: Hematology/Oncology Comment on above: Medication Problem Start: 05-30-2023 Telephone encounter Killian fraser DO Work Phone: Hematology/Oncology Comment on above: Orders Results (Low platele ts.) Start: 05-29-2023 Orders Only Killian Ortiz O Work Phone: Hematology/Oncology Comment on above: Acute ITP (HCC) (Cammie herson Dx); Hypofibrinogenemia (HCC) Start: 05-28-2023 Telephone encounter Killian fraser DO Work Phone: Hematology/Oncology Comment on above: Results Start: 05-27-2023 End: 05-27-2023 Subsequent hospital visit by physician [facility] 2 Work Phone: Radiology Comment on above: Acute ITP (HCC) [D69 .3] Start: 05-27-2023 Telephone encounter Killian fraser DO Work Phone: Hematology/Oncology Comment on above: AVS 05/27 Start: 05-27-2023 End: 05-27-2023 ambulatory Killian Elam DO Work Phone: Hematology/Oncology Comment on above: Acute ITP (HCC) (Cammie herson Dx); Hypofibrinogenemia (HCC) Start: 05-27-2023 End: 05-27-2023 Patient encounter procedure Killian No Donnapérez DO Work Phone: [facility] Start: 05-24-2023 Evaluation and management of inpatient PROVIDER NOT IN SYSTEM Facility:[facility] Start: 05-24-2023 Non-patient / Non-visit Dr. Garrick Payan Work Phone: [facility] Work Phone: Start: 05-24-2023 Telephone encounter Klilian fraser DO Work Phone: Hematology/Oncology Comment on above: Appointment (NEW PT) Start: 05-23-2023 Non-patient / Non-visit Dr. Garrick Payan Work Phone: [facility] Work Phone: Start: 05-23-2023 Evaluation and management of inpatient ANTON Marybel PHAM Facility:[facility] Start: 05-22-2023 End: 05-24-2023 Evaluation and management of inpatient Dr. Jasper Payan Work Phone: [facility] 3 Work Phone: Start: 05-22-2023 Non-patient / Non-visit Dr. Garrick Payan Work Phone: [facility] Work Phone: Start: 12-02-2022 Telephone encounter Scar valdes APRN.VALET ATTENDANT Work Phone: [facility] Comment on above: Results Procedures Date Procedure Procedure Detail Performing Clinician Start: 07-07-2024 Adult depression scr eening assessment [facility] Provider Start: 12-28-2023 SARS-CoV-2, Influenz a & RSV (PCR) Start: 12-28-2023 CT of head without contrast Start: 12-06-2023 SARS-CoV-2, Influenz a & RSV (PCR) Start: 12-06-2023 Plain chest X-ray Start: 11-29-2023 Comprehensive metabo lic panel Abhishek Dey MD Work Phone: Start: 11-22-2023 HEP REMOTE PANEL BL Priti l A Masci DO Work Phone: Start: 11-22-2023 Hepatitis c antibody Pa ul A Masci DO Work Phone: Start: 11-22-2023 Iaad ia hepatitis b surface antigen Killian Marybel Whistlestopi DO Work Phone: Start: 05-27-2023 End: 05-27-2023 Us abdominal real time w/image limited Killian Marybel Masci DO Work Phone: Start: 05-23-2023 Biopsy/Inj or Needle Placement Dr. Jasper Payan Work Phone: Plan of Treatment Date Care Activity Detail Author Start: 07-07-2025 Anxiety Screening Anxiety Screening [facility] Comment on above: Postponed from 2019 (Declined at t his time) Start: 07-07-2025 Covid-19 Vaccine (#1) Covid-19 Vaccine (#1) [facility] Comment on above: Postponed from 2006 (Declined at t his time) Start: 07-07-2025 Depression Screening Depression Screening [facility] Start: 07-07-2025 HIV screening HIV Screening [facility] Comment on above: Postponed from 2019 (Declined at t his time) Start: 07-07-2025 HPV Vaccine (2 - Male 2-dose series) HPV Vaccine (2 - Male 2-dose series) [facility] Comment on above: Postponed from 11/19/2012 (Declined at t his time) Start: 07-07-2025 Meningococcal B Vaccine (1 of 2 - Standard) Meningococcal B Vaccine (1 of 2 - Standard) [facility] Comment on above: Postponed from 2017 (Declined at t his time) Start: 07-07-2025 Meningococcal B Vaccine: Consider Based On Risk (1 of 2 - Patient Seeks Protection) Meningococcal B Vaccine: Consider Based On Risk (1 of 2 - Patient Seeks Protection) [facility] Comment on above: Postponed from 2017 (Declined at t his time) Start: 07-07-2025 Pneumococcal vaccination Pneumococcal Vaccine (1 of 2 - PCV) [facility] Comment on above: Postponed from 2007 (Declined at t his time) Postponed from 03/02 (Declined at this time) Start: 07-07-2025 Shingrix Vaccine (1 of 2) Shingrix Vaccine (1 of 2) [facility] Comment on above: Postponed from 2020 (Declined at t his time) Start: 07-07-2025 Urine microalbumin profile DTaP,Tdap,Td Vaccine (5 - Td or Tdap) [facility] Comment on above: Postponed from 05/19/2022 (Declined at t his time) Start: 04-12-2025 Influenza vaccination Influenza Vaccine (#1) [facility] Comment on above: Postponed from 06/14/2024 (Declined at t his time) Start: 01-04-2025 End: 01-04-2025 Follow-up encounter 01/04/2025 11:00 AM EDT [facility] [address] [facility] [place] [id number] Mariusz Allen MD [address] [facility] [place] [id number] VV 6 month follow up anxiety and depression [facility] Comment on above: VV 6 month follow up anxiety and depress ion Start: 12-28-2024 End: 03-29-2025 25-hydroxyvitamin D3 [Mass/volume] in Serum or Plasma VITAMIN D 25 HYDROXY Lab Routine Vitamin D deficiency Expected: 12/28/2024, Expires: 03/29/2025 [facility] Work Phone: Comment on above: Expected: 12/28/2024, Expires: Start: 07-30-2024 End: 07-30-2024 ambulatory 07/30/2024 2:00 PM EDT Results Only [facility] Cisneros [facility] [address] [place] [address] CBC/?TX* Lorenza Cisneros [facility] Comment on above: CBC/?TX* Start: 07-07-2024 End: 07-07-2024 Patient encounter procedure 07/07/2024 5:40 PM EDT Office Visit [facility] [address] [place] [address] Mariusz Allen MD [address] [place] [address] establish care [facility] Comment on above: establish care Start: 07-07-2024 End: 10-06-2024 25-hydroxyvitamin D3 [Mass/volume] in Serum or Plasma VITAMIN D 25 HYDROXY Lab Routine Anxiety with depression Expected: 07/07/2024, Expires: 10/06/2024 [facility] Comment on above: Expected: 07/07/2024, Expires: Start: 07-07-2024 End: 10-06-2024 Cobalamin (Vitamin B12) [Mass/volume] in Serum or Plasma VITAMIN B12 Lab Routine Anxiety with depression Expected: 07/07/2024, Expires: 10/06/2024 [facility] Comment on above: Expected: 07/07/2024, Expires: Start: 07-07-2024 End: 10-06-2024 Comprehensive metabolic 2000 panel - Serum or Plasma COMPREHENSIVE METABOLIC PANEL Lab Routine Encounter for medical examination to establish care Expected: 07/07/2024, Expires: 10/06/2024 [facility] Work Phone: Comment on above: Expected: 07/07/2024, Expires: Start: 07-07-2024 Depression Screening Depression Screening [facility] Comment on above: Postponed from 2019 (Declined at t his time) Start: 07-07-2024 End: 10-06-2024 LIPID PANEL, NONFASTING LIPID PANEL, NONFASTING Lab Routine Encounter for medical examination to establish care Expected: 07/07/2024, Expires: 10/06/2024 [facility] Comment on above: Expected: 07/07/2024, Expires: Start: 07-07-2024 End: 10-06-2024 Thyrotropin [Units/volume] in Serum or Plasma THYROID STIMULATING HORMONE Lab Routine Anxiety with depression Expected: 07/07/2024, Expires: 10/06/2024 [facility] Comment on above: Expected: 07/07/2024, Expires: Start: 06-19-2024 End: 06-19-2024 ambulatory 06/19/2024 11:00 AM EDT [facility] [address] [place] [address] QWK CBC (?TX)* fri appt [facility] Comment on above: QWK CBC (?TX)* fri appt Start: 06-16-2024 End: 06-16-2024 ambulatory Hematology/Oncolog y Comment on above: Q2MO RITUXIMAB/LAB&OV 06/11/SELF PAY/AUTH EXP?* CHANGED FROM QMO TO Q2MO PER TE Q2MO RITUXIMAB/LAB&O V 06/12/SELF PAY/AUTH EXP?* CHANGED FROM QMO TO Q2MO PER TE Start: 06-14-2024 Influenza vaccination [facility] Start: 06-12-2024 End: 06-12-2024 ambulatory [facility] Comment on above: QWK CBC (?TX)* fri appt OV/LAB EARLY/CHEMO * Start: 06-11-2024 End: 06-11-2024 ambulatory [facility] Comment on above: QWK CBC (?TX)* OV/LAB EARLY/CHEMO * Start: 06-05-2024 End: 06-05-2024 ambulatory 06/05/2024 11:00 AM EDT Results Only [facility] Cisneros [facility] [address] [place] [address] QWK CBC (?TX)* fri appt Lorenzateresa Cisneros [facility] Comment on above: QWK CBC (?TX)* fri appt Start: 05-29-2024 End: 05-29-2024 ambulatory 05/29/2024 11:00 AM EDT Results Only [facility] Cisneros [facility] [address] [place] [address] QWK CBC (?TX)* fri appt Lorenza Cisneros [facility] Comment on above: QWK CBC (?TX)* fri appt Start: 05-25-2024 End: 05-25-2024 ambulatory 05/25/2024 9:00 AM EDT [facility] Hematology/Oncology [address] [place] [address] Q2MO RITUXIMAB/SELF PAY/AUTH EXP?* CHANGED FROM QMO TO Q2MO PER TE -ov next appt Hematology/Oncolog y Comment on above: Q2MO RITUXIMAB/SELF PAY/AUTH EXP?* GUSTAFSON ED FROM QMO TO Q2MO PER TE -ov next appt Start: 05-22-2024 End: 05-22-2024 ambulatory Lorenza Bhaktawn [facility] Comment on above: QWK CBC (?TX)* fri appt Q2MO RITUXIMAB/LAB&O V 06/12/SELF PAY/AUTH EXP?* CHANGED FROM QMO TO Q2MO PER TE Start: 05-14-2024 End: 05-14-2024 ambulatory 05/14/2024 11:30 AM EDT Results Only Lorenza Cisneros [facility] [address] [place] [address] QWK CBC (?TX)* Lorenza Ricen [facility] Comment on above: QWK CBC (?TX)* Start: 05-07-2024 End: 05-07-2024 ambulatory 05/07/2024 11:30 AM EDT Results Only Lorenza Cisneros [facility] [address] [place] [address] QWK CBC (?TX)* Lorenzateresa Bhaktawn [facility] Comment on above: QWK CBC (?TX)* Start: 04-30-2024 End: 04-30-2024 ambulatory 04/30/2024 11:30 AM EDT Results Only [place] [facility] [address] [place] [address] QWK CBC (?TX)* [facility] [place] [facility] Comment on above: QWK CBC (?TX)* Start: 04-23-2024 End: 04-23-2024 ambulatory 04/23/2024 11:30 AM EDT Results Only [place] [facility] [address] [place] [address] QWK CBC (?TX)* [place] [facility] Comment on above: QWK CBC (?TX)* Start: 04-15-2024 End: 04-15-2024 ambulatory 04/15/2024 11:30 AM EDT Results Only Lorenza Bhaktawn [facility] [address] [place] [address] QWK CBC (?TX)* [place] [facility] Comment on above: QWK CBC (?TX)* Start: 04-13-2024 End: 04-13-2024 ambulatory Hematology/Oncolog y Comment on above: Q2MO RITUXIMAB/LAB&OV 04/09/SELF PAY/AUTH EXP?* CHANGED FROM QMO TO Q2MO PER TE leave as scheduled p er 03/12 te/03/19 treatment is an add on Start: 04-09-2024 End: 04-09-2024 ambulatory 04/09/2024 11:30 AM EDT Results Only [place] [facility] [address] [place] [address] QWK CBC (?TX)* [place] [facility] Comment on above: QWK CBC (?TX)* Start: 04-09-2024 End: 04-09-2024 ambulatory [facility] [facility] Comment on above: QWK CBC (?TX)* OV/LAB EARLY/CHEMO * Start: 04-02-2024 End: 04-02-2024 ambulatory 04/02/2024 11:30 AM EDT Results Only [place] [facility] [address] [place] [address] QWK CBC (?TX)* [place] [facility] Comment on above: QWK CBC (?TX)* Start: 03-26-2024 End: 03-26-2024 ambulatory 03/26/2024 11:30 AM EDT Results Only [place] [facility] [address] [place] [address] QWK CBC (?TX)* [place] [facility] Comment on above: QWK CBC (?TX)* Start: 03-19-2024 End: 03-19-2024 ambulatory 03/19/2024 11:30 AM EDT Results Only [place] [facility] [address] [place] [address] QWK CBC (?TX)* [place] [facility] Comment on above: QWK CBC (?TX)* Start: 03-19-2024 End: 03-19-2024 ambulatory [place] [facility] Comment on above: QWK CBC (?TX)* ADD ON RITUXIMAB/LAB TODAY- PER 03/05 TE* Start: 03-17-2024 End: 03-17-2024 ambulatory 03/17/2024 8:00 AM EDT [facility] Hematology/Oncology [address] [place] [address] QMO RITUXIMAB/LAB&OV 03/12/SELF PAY/AUTH EXP?* Hematology/Oncolog y Comment on above: QMO RITUXIMAB/LAB&OV 03/12/SELF PAY/AUTH EXP?* Start: 03-12-2024 End: 03-12-2024 ambulatory 03/12/2024 11:30 AM EDT Results Only [place] [facility] [address] [place] [address] QWK CBC (?TX)* [place] [facility] Comment on above: QWK CBC (?TX)* Start: 03-12-2024 End: 03-12-2024 ambulatory 03/12/2024 9:30 AM EDT Visit (SP) Office Hematology/Oncology [address] [place] [address] Dorota Davidson APRN.VALET ATTENDANT [address] [place] [address] OV/ LABS TODAY/CHEMO 03/17* [facility] Hematology/Oncolog y Comment on above: OV/ LABS TODAY/CHEMO 03/17* [facility] Start: 03-05-2024 End: 03-05-2024 ambulatory 03/05/2024 11:30 AM EDT Results Only [place] Cisneros [facility] [address] [place] [address] QWK CBC (?TX)* Lorenzateresa Bhak[place] [facility] Comment on above: QWK CBC (?TX)* Start: 02-27-2024 End: 02-27-2024 ambulatory 02/27/2024 11:30 AM EDT Results Only [place] Cisneros [facility] [address] [place] [address] QWK CBC (?TX)* Lorenza Cisneros [facility] Comment on above: QWK CBC (?TX)* Start: 02-20-2024 End: 02-20-2024 ambulatory 02/20/2024 11:30 AM EDT Results Only Lorenza Cisneros [facility] [address] [place] [address] QWK CBC (?TX)* Lorenza Cisneros [facility] Comment on above: QWK CBC (?TX)* Start: 02-17-2024 End: 02-17-2024 ambulatory 02/17/2024 8:00 AM EDT [facility] Hematology/Oncology [address] [place] [address] QMO RITUXIMAB/LAB&OV 5/3/HCAP EXP 02/18/2024* Hematology/Oncolog y Comment on above: QMO RITUXIMAB/LAB&OV 5/3/HCAP EXP 02/18/20 24* Start: 02-14-2024 End: 02-14-2024 ambulatory [facility] Laboratory Comment on above: CBC/CMP (?TX)* OV/ LABS TODAY/CHEMO 02/16* Start: 01-30-2024 End: 04-30-2024 CBC W Auto Differential panel - Blood COMPLETE BLOOD COUNT AND DIFFERENTIAL Lab STAT Chronic ITP (idiopathic thrombocytopenia) (HCC) Expected: 01/30/2024 (Approximate), Expires: 04/30/2024 [facility] Work Phone: Comment on above: Expected: 01/30/2024 (Approximate), Expi res: 04/30/2024 Start: 01-30-2024 End: 04-30-2024 Comprehensive metabolic 2000 panel - Serum or Plasma COMPREHENSIVE METABOLIC PANEL Lab Routine Chronic ITP (idiopathic thrombocytopenia) (HCC) Expected: 01/30/2024 (Approximate), Expires: 04/30/2024 [facility] Work Phone: Comment on above: Expected: 01/30/2024 (Approximate), Expi res: 04/30/2024 Start: 12-28-2023 [facility] Start: 12-20-2023 End: 03-20-2024 Comprehensive metabolic 2000 panel - Serum or Plasma COMP METABOLIC PANEL Lab STAT Chronic ITP (idiopathic thrombocytopenia) (HCC) Hypofibrinogenemia (HCC) Expected: 12/20/2023, Expires: 03/20/2024 [facility] Work Phone: Comment on above: Expected: 12/20/2023, Expires: Start: 12-06-2023 [facility] Start: 12-06-2023 End: 03-06-2024 Comprehensive metabolic 2000 panel - Serum or Plasma COMP METABOLIC PANEL Lab STAT Chronic ITP (idiopathic thrombocytopenia) (HCC) Expected: 12/06/2023, Expires: 03/06/2024 [facility] Work Phone: Comment on above: Expected: 12/06/2023, Expires: Start: 10-14-2023 Behavioral Health Screening Behavioral Health Screening [facility] Start: 10-14-2023 Depression Assessment Depression Assessment [facility] Start: 09-06-2023 End: 12-06-2023 Cobalamin (Vitamin B12) [Mass/volume] in Serum or Plasma [facility] Work Phone: Comment on above: Expected: 09/06/2023, Expires: 4 Start: 09-06-2023 End: 12-06-2023 Folate [Mass/volume] in Serum or Plasma [facility] Work Phone: Comment on above: Expected: 09/06/2023, Expires: 4 Start: 07-29-2023 End: 09-28-2023 aPTT in Platelet poor plasma by Coagulation assay ACTIVATED PTT Lab Routine Acute ITP (HCC) Expected: 07/29/2023, Expires: 09/28/2023 [facility] Work Phone: Comment on above: Expected: 07/29/2023, Expires: 3 Start: 07-29-2023 End: 09-28-2023 Basic metabolic 2000 panel - Serum or Plasma BASIC METABOLIC PNL Lab STAT Acute ITP (HCC) Expected: 07/29/2023, Expires: 09/28/2023 [facility] Work Phone: Comment on above: Expected: 07/29/2023, Expires: 3 Start: 07-29-2023 End: 09-28-2023 CBC W Auto Differential panel - Blood CBC + DIFF Lab STAT Acute ITP (HCC) Expected: 07/29/2023, Expires: 09/28/2023 [facility] Work Phone: Comment on above: Expected: 07/29/2023, Expires: 3 Start: 07-29-2023 End: 09-28-2023 Fibrinogen [Mass/volume] in Platelet poor plasma by Coagulation assay FIBRINOGEN Lab Routine Acute ITP (HCC) Expected: 07/29/2023, Expires: 09/28/2023 [facility] Work Phone: Comment on above: Expected: 07/29/2023, Expires: 3 Start: 07-29-2023 End: 09-28-2023 PT panel - Platelet poor plasma by Coagulation assay PROTHROMBIN TIME/PT Lab Routine Acute ITP (HCC) Expected: 07/29/2023, Expires: 09/28/2023 [facility] Work Phone: Comment on above: Expected: 07/29/2023, Expires: 3 Start: 06-18-2023 End: 08-18-2023 DAVID BY IFA SCREEN [facility] Work Phone: Comment on above: Expected: 06/18/2023, Expires: 3 Start: 06-18-2023 End: 08-18-2023 CBC W Auto Differential panel - Blood CBC + DIFF Lab STAT Acute ITP (HCC) Hypofibrinogenemia (HCC) Expected: 06/18/2023, Expires: 08/18/2023 [facility] Work Phone: Comment on above: Expected: 06/18/2023, Expires: 3 Start: 06-18-2023 End: 08-18-2023 Comprehensive metabolic 2000 panel - Serum or Plasma COMP METABOLIC PANEL Lab STAT Acute ITP (HCC) Hypofibrinogenemia (HCC) Expected: 06/18/2023, Expires: 08/18/2023 [facility] Work Phone: Comment on above: Expected: 06/18/2023, Expires: 3 Start: 06-18-2023 End: 08-18-2023 RHIANNA GUADALUPE PANEL [facility] Work Phone: Comment on above: Expected: 06/18/2023, Expires: 3 Start: 06-14-2023 Influenza vaccination [facility] Start: 06-05-2023 End: 08-05-2023 Fibrinogen [Mass/volume] in Platelet poor plasma by Coagulation assay FIBRINOGEN Lab STAT Hypofibrinogenemia (HCC) Expected: 06/05/2023, Expires: 08/05/2023 [facility] Work Phone: Comment on above: Expected: 06/05/2023, Expires: 3 Start: 06-05-2023 End: 08-05-2023 FIBRINOGEN ANTIGEN FIBRINOGEN ANTIGEN Lab Routine Hypofibrinogenemia (HCC) Expected: 06/05/2023, Expires: 08/05/2023 [facility] Work Phone: Comment on above: Expected: 06/05/2023, Expires: 3 Start: 05-31-2023 Blood chemistry [facility] Start: 05-30-2023 Blood chemistry [facility] Start: 05-29-2023 Blood chemistry [facility] Start: 05-28-2023 Blood chemistry [facility] Start: 05-27-2023 End: 07-27-2023 Fibrin D-dimer FEU [Mass/volume] in Platelet poor plasma [facility] Work Phone: Comment on above: Expected: 05/27/2023, Expires: 3 Start: 05-27-2023 End: 07-27-2023 Fibrinogen [Mass/volume] in Platelet poor plasma by Coagulation assay [facility] Work Phone: Comment on above: Expected: 05/27/2023, Expires: 3 Start: 05-27-2023 End: 07-27-2023 PLATELET AGGREGATION PANEL PLATELET AGGREGATION PANEL Lab Routine Acute ITP (HCC) Hypofibrinogenemia (HCC) Expected: 05/27/2023, Expires: 07/27/2023 [facility] Work Phone: Comment on above: Expected: 05/27/2023, Expires: 3 Start: 05-27-2023 Blood chemistry [facility] Start: 05-26-2023 Blood chemistry [facility] Start: 05-25-2023 Blood chemistry [facility] Start: 05-24-2023 Patient discharge [facility] Start: 05-23-2023 Dietary regime [facility] Start: 05-23-2023 Procedure [facility] Start: 05-23-2023 Catheterization of vein [facility] Start: 05-23-2023 Vital signs measurements [facility] Start: 05-22-2023 [facility] Start: 05-22-2023 Administration of blood product [facility] Start: 05-22-2023 Following clinical pathway protocol [facility] Start: 05-22-2023 Assessment of risk of venous thromboembolism [facility] Start: 05-22-2023 Consultation [facility] Start: 05-22-2023 Fall prevention [facility] Start: 05-22-2023 Inhalation therapy procedure [facility] Start: 05-22-2023 Insertion of catheter into peripheral vein [facility] Start: 05-22-2023 Introduction of urinary catheter [facility] Start: 05-22-2023 Measuring intake and output [facility] Start: 05-22-2023 Providing care according to standard [facility] Start: 05-22-2023 Provision of activity privileges [facility] Start: 05-22-2023 Referral to service [facility] Start: 05-22-2023 [facility] Start: 05-22-2023 Admission procedure [facility] Start: 05-22-2023 Verification routine [facility] Start: 05-22-2023 Patient referral to dietitian [facility] Start: 10-14-2022 DEPRESSION ASSESSMENT DEPRESSION ASSESSMENT [facility] Start: 06-14-2022 Influenza vaccination INFLUENZA (#1) [facility] Start: 05-19-2022 Urine microalbumin profile [facility] Start: 2020 Shingrix Vaccine (1 of 2) Shingrix Vaccine (1 of 2) [facility] Start: 2019 Anxiety Screening Anxiety Screening [facility] Start: 2019 Depression Screening Depression Screening [facility] Start: 2019 HEPATITIS C SCREENING HEPATITIS C SCREENING [facility] Start: 2019 Hepatitis C screening Hepatitis C Screening [facility] Start: 2019 HIV SCREENING HIV SCREENING [facility] Start: 2019 HIV screening HIV Screening [facility] Start: 2017 Meningococcal B Vaccine: Consider Based On Risk (1 of 2 - Patient Seeks Protection) Meningococcal B Vaccine: Consider Based On Risk (1 of 2 - Patient Seeks Protection) [facility] Start: 2017 MENINGOCOCCAL B: Consider based on risk (1 of 2 - Patient Seeks Protection) MENINGOCOCCAL B: Consider based on risk (1 of 2 - Patient Seeks Protection) [facility] Start: 2015 PEDS TO ADULT TRANSITION ANNUAL ASSESSMENT PEDS TO ADULT TRANSITION ANNUAL ASSESSMENT [facility] Start: 2013 PEDS TO ADULT TRANSITION INITIAL DISCUSSION PEDS TO ADULT TRANSITION INITIAL DISCUSSION [facility] Start: 11-19-2012 HPV VACCINE (2 - Male 2-dose series) HPV VACCINE (2 - Male 2-dose series) [facility] Start: 2011 MENINGOCOCCAL B: Consider based on risk (1 of 2 - Risk Bexsero 2-dose series) MENINGOCOCCAL B: Consider based on risk (1 of 2 - Risk Bexsero 2-dose series) [facility] Start: 2007 Pneumococcal vaccination Pneumococcal Vaccine (1 of 2 - PCV) [facility] Start: 2006 Covid-19 Vaccine (#1) Covid-19 Vaccine (#1) [facility] Start: 2001 COVID-19 VACCINE (#1) COVID-19 VACCINE (#1) [facility] Beta 2 glycoprotein 1 IgA Ab [Presence] in Serum [facility] Beta 2 glycoprotein 1 IgG Ab [Presence] in Serum [facility] Beta 2 glycoprotein 1 IgM Ab [Presence] in Serum [facility] Cardiolipin IgG Ab [Units/volume] in Serum or Plasma [facility] Cardiolipin IgM Ab [Units/volume] in Serum or Plasma [facility] End: 05-28-2024 CBC W Auto Differential panel - Blood CBC + DIFF Lab STAT Acute ITP (HCC) Hypofibrinogenemia (HCC) Once per week for 26 Occurrences starting 05/29/2023 until 05/28/2024 [facility] Work Phone: Comment on above: Once per week for 26 Occurrences startin g 05/29/2023 until 05/28/2024 Fibrinogen [Mass/vol ume] in Platelet poor plasma by Coagulation assay FIBRINOGEN Lab STAT Hypofibrinogenemia (HCC) 06/11/2023 12:39 PM EDT [facility] Work Phone: FIBRINOGEN ANTIGEN FIBRINOGEN AN TIGEN Lab Routine Hypofibrinogenemia (HCC) 06/11/2023 12:39 PM EDT [facility] Work Phone: Haptoglobin [Mass/volume] in Serum or Plasma [facility] Helicobacter pylori Ag [Presence] in Stool by Immunoassay H PYLORI AG BY EIA,STOOL Microbiology Routine Acute ITP (HCC) Muscle soreness Ordered: 06/18/2023 [facility] Work Phone: Comment on above: Ordered: 06/18/2023 Patient Education [facility] Work Phone: Patient referral [facility] Phone: [facility] Immunizations Immunization Date Immunization Notes Care Provider Bobbi pulliam 05-19-2012 hepatitis A vaccine, unspecified formulation Scar Pisano APRN.VALET ATTENDANT Work Phone: [facility] 05-19-2012 human papilloma viru s vaccine, quadrivalent Scar Pisano ROLL HANDLER.VALET ATTENDANT Work Phone: [facility] 05-19-2012 Meningococcal, MCV4, unspecified conjugate formulation(groups A, C, Y and W-135) Scar Pisano APRN.VALET ATTENDANT Work Phone: [facility] 05-19-2012 tetanus toxoid, redu shannon diphtheria toxoid, and acellular pertussis vaccine, adsorbed Scar Pisano ROLL HANDLER.VALET ATTENDANT Work Phone: [facility] 11-04-2006 diphtheria, tetanus toxoids and pertussis vaccine Scar Pisano ROLL HANDLER.VALET ATTENDANT Work Phone: [facility] Work Phone: 11-04-2006 hepatitis B vaccine, pediatric or pediatric/adolescent dosage Scar Pisano APRN.VALET ATTENDANT Work Phone: [facility] Work Phone: 11-04-2006 poliovirus vaccine, inactivated Scar Pisano ROLL HANDLER.[facility] Work Phone: [facility] Work Phone: 08-05-2006 diphtheria, tetanus toxoids and pertussis vaccine Scar Pisano ROLL HANDLER.VALET ATTENDANT Work Phone: [facility] Work Phone: 08-05-2006 hepatitis A vaccine, unspecified formulation Scar Pisano ROLL HANDLER.VALET ATTENDANT Work Phone: [facility] Work Phone: 08-05-2006 hepatitis B vaccine, pediatric or pediatric/adolescent dosage Scar Pisano ROLL HANDLER.[facility] Work Phone: [facility] Work Phone: 08-05-2006 measles, mumps and rubella virus vaccine Scar Pisano ROLL HANDLER.VALET ATTENDANT Work Phone: [facility] Work Phone: 08-05-2006 poliovirus vaccine, inactivated Scar Pisano ROLL HANDLER.VALET ATTENDANT Work Phone: [facility] Work Phone: 06-16-2003 diphtheria, tetanus toxoids and pertussis vaccine Scar Pisano ROLL HANDLER.VALET ATTENDANT Work Phone: [facility] Work Phone: 06-16-2003 haemophilus influenz ae type b vaccine, HbOC conjugate Scar Pisano ROLL HANDLER.VALET ATTENDANT Work Phone: [facility] Work Phone: 06-16-2003 hepatitis B vaccine, pediatric or pediatric/adolescent dosage Scar Pisano ROLL HANDLER.VALET ATTENDANT Work Phone: [facility] Work Phone: 06-16-2003 measles, mumps and rubella virus vaccine Scar Pisano ROLL HANDLER.VALET ATTENDANT Work Phone: [facility] Work Phone: 06-16-2003 poliovirus vaccine, inactivated Scar Pisano ROLL HANDLER.VALET ATTENDANT Work Phone: [facility] Work Phone: 10-14-2002 Chicken Pox (disease) Petey Pisano ROLL HANDLER.[facility] Work Phone: [facility] Work Phone: Payers Date Payer Category Payer Medicaid [id number] 2024 Unknown [id number] 2023 Self-pay Medicaid MEDICAID [id number] Unknown [facility] [id number] Unknown [id number] [id number] Unknown [id number] Unknown [id number] Unknown [id number] [id number] Unknown [id number] [id number] Unknown [id number] [id number] Social History Date Type Detail Facility Start: [facility]28[facility]2022 [facility] Start: 11-28-2022 Tobacco use and exposure Smokeless tobacco non-user [facility] Start: 11-28-2022 Alcohol intake Not Asked Coco ortiz [facility] Start: 2001 Sex Assigned At Not on file [facility] Start: 05-22-2023 End: 12-28-2023 Tobacco smoking status CAIS Unknown if ever smoked [facility] Start: 2001 Sex Assigned At Male [facility] Start: 05-27-2023 End: 11-04-2023 History of Social function [facility] Start: 05-27-2023 End: 11-04-2023 Tobacco use panel [facility] National Score (1-10 0), lower number is lower risk 80 [facility] Start: 05-27-2023 End: 09-29-2024 Alcohol intake Ex-drinker (finding) [facility] Has the basestone, Chance (app), or water [employer] threatened to shut off services in your home in past 12Mo No [facility] How often to you hav e a drink containing alcohol? Never [facility] How hard is it for y ou to pay for the very basics like food, housing, medical care, and heating Very hard [facility] Do you feel stress - tense, restless, nervous, or anxious, or unable to sleep at night because your mind is troubled all the time - these days [OSQ] To some extent [facility] In the past 12 month s, was there a time when you were not able to pay the mortgage or rent on time? Yes [facility] Medical Equipment Procedure Code Equipment Code Equipment Origin al Text Equipment Identifier Dates immune globulin (human) (IgG) 30 g in empty bag Total Volume 300 mL (GAMMAGARD) [id number] Start: 03-06-2024 End: 03-06-2024 Goals Date Patient Goal Desired Activity /State Functional Status Date Assessment Result Facility 05-24-2023 Functional status [facility] Work Phone: Mental Status Date Assessment Result Facility 12-28-2023 Cognitive function Level Of Cons ciousness Awake;Alert;Appropriate;Follow s Commands [facility] Work Phone: 12-06-2023 Cognitive function Level Of Cons ciousness Awake;Alert;Appropriate;Follow s Commands [facility] Work Phone: 05-24-2023 Cognitive function Appropriate;Cooperativ e [facility] Work Phone: 05-23-2023 Cognitive function Level Of Cons ciousness Awake;Alert;Appropriate;Follow s Commands [facility] Work Phone: 05-23-2023 Cognitive function Patient Orien tation Person;Place;Time [facility] Work Phone: 05-21-2023 Cognitive function Level Of Cons ciousness Awake;Alert;Appropriate [facility] Work Phone: Clinical Notes 12-04-2022 to 12-14-2024 Telephone Encounter - Bernadette Barron LPN - 12/14/2024 3:22 PM ESTTelephone Encounter - Bernadette Barron LPN - 12/14/2024 3:22 PM ESTTelephone Encounter - Hawa Ronquillo LPN - 09/29/2024 1:31 PM EST Note Date & Type Note Facility 12-14-2024 Telephone encounter Note MyChart message not read. I called pt, went immediately to VM and unable to leave a message as VM is full. Bernadette Barron LPN [facility] 12-14-2024 Miscellaneous Notes MyChart message not read. I called pt, went immediately to VM and unable to leave a message as VM is full. Bernadette Barron LPN documented in this encounter [facility] 09-29-2024 Telephone encounter Note letter sent to patient to call office back regarding results. Hawa Ronquillo LPN [facility] 09-29-2024 Miscellaneous Notes letter sent to patient to call office back regarding results. Hawa Ronquillo LPN Vitamin D level severely low. Recommend 50,000 units of vitamin D weekly x 12 weeks and recheck in 3 months. Other labs unremarkable except for low sugar and low potassium level. Recommend eating 3 healthy meals per day to prevent low sugars. Eat more potassium rich foods to correct for low level. Recheck level in 3-4 weeks. documented in this encounter [facility] 09-29-2024 Telephone encounter Note Vitamin D level severely low. Recommend 50,000 units of vitamin D weekly x 12 weeks and recheck in 3 months. Other labs unremarkable except for low sugar and low potassium level. Recommend eating 3 healthy meals per day to prevent low sugars. Eat more potassium rich foods to correct for low level. Recheck level in 3-4 weeks. [facility] 07-30-2024 Telephone encounter Note Spoke with pt concerning free drug thru [employer] for his Promacta. He stated he hed filled everything out that he needed to ans sent to Retail Department Supervisor. Spoke with ornamental metal worker, she stated pt. Has not gotten one of the forms completed and returned. Pt. Informed he needed to contact [employer] @ [phone] and request a No Income Atestation form , once received he needs to complete and get to social media content manager. Since he is not a minor, he needs to do this, he can't have his mom do it. Once all forms are completed, can then possibly get free Promacta. Jenny Hurley LPN [facility] 07-30-2024 Miscellaneous Notes Spoke with pt concerning free drug thru [employer] for his Promacta. He stated he hed filled everything out that he needed to ans sent to Retail Department Supervisor. Spoke with ornamental metal worker, she stated pt. Has not gotten one of the forms completed and returned. Pt. Informed he needed to contact [employer] @ [phone] and request a No Income Atestation form , once received he needs to complete and get to social media content manager. Since he is not a minor, he needs to do this, he can't have his mom do it. Once all forms are completed, can then possibly get free Promacta. Jenny Hurley LPN documented in this encounter [facility] 07-30-2024 Telephone encounter Note Pt. Had labs done today, informed he does not need transfusion. Questions when he should have next lab draw? He currently taking no medications . NoNever received any Promacta, ran out of prednisone about a month ago. Jenny Hurley LPN [facility] 07-30-2024 Miscellaneous Notes Pt. Had labs done today, informed he does not need transfusion. Questions when he should have next lab draw? He currently taking no medications . NoNever received any Promacta, ran out of prednisone about a month ago. Jenny Hurley LPN documented in this encounter [facility] 07-28-2024 Telephone encounter Note Scheduled with patient [facility] Work Phone: 07-28-2024 Miscellaneous Notes Scheduled with patient documented in this encounter [facility] 07-07-2024 Instructions Mariusz Allen MD - 07/07/2024 6:12 PM EDT [facility] [address] [place] [address] [place] [phone] [facility] [address] [place] [address] [place] [id number] [place] [id number] [address] [address] [facility] [address] [place], [place] [phone] documented in this encounter [facility] 07-07-2024 Note HNO ID: [id number] Author: MARIUSZ ALLEN MD Service: ? Author Type: Physician Type: Progress Notes Filed: 07/07/2024 18:39 Note Text: Chief Complaint Patient presents with: Establish Care HPI Zane Buitrago is a 24 year old male who presents here today for Above Complaints. Patient's last PCP was Dr. Gongora in pediatrics with last OV more than 5 years ago. No questions or concerns. Patient is following up with Dr. Elam's office for history of chronic ITP diagnosed in 2022. He is on prednisone now along with monthly Rituxan infusions and is working on getting approval from insurance to start Promacta. Reviewed recent CBC. Denies bleeding or bruising symptoms today. Patient notes that over the last 3 weeks has been feeling more anxious and depressed related to some relationship issues with his girlfriend. Denies SI/HI, panic symptoms. Feels safe going home. Would like to try medication and counseling. LEVON-7 07/05/2024 LEVON-7 All Questions Feeling nervous, anxious, or on edge Several days Not being able to stop or control worrying Several days Worrying too much about different things Several days Trouble relaxing More than half the days Being so restless that it is hard to sit still Nearly Everyday Becoming easily annoyed or irritable Nearly Everyday Feeling afraid, as if something awful might happen Not at all LEVON-7 Score 11 Details PHQ-9 07/05/2024 PHQ-9 Scores Little interest or pleasure in doing things Several days Feeling down, depressed, or hopeless Several days Trouble falling or staying asleep, or sleeping too much Several days Feeling tired or having little energy Nearly every day Poor appetite or overeating Nearly every day Feeling bad about yourself - or that you are a failure or have let yourself or your family down Nearly every day Trouble concentrating on things, such as reading the newspaper or watching television Not at all Moving or speaking so slowly that other people could have noticed. Or the opposite - being so fidgety or restless that you have been moving around a lot more than usual Not at all Thoughts that you would be better off , or of hurting yourself in some way Not at all PHQ-9 Score 12 Details Refusing vaccinations today. Past medical history, appointments, medications, allergies reviewed. Previous Medical History PAST MEDICAL HISTORY Diagnosis Date Acute ITP ([facility]) 06/25/2023 Chronic ITP (idiopathic thrombocytopenia) ([facility]) 09/24/2023 Dr. Elam Marijuana use NEGATIVE HISTORY OF 05/19/2012 normal color vision Previous Surgical History PAST SURGICAL HISTORY Procedure Laterality Date NONE Family History FAMILY HISTORY Problem Relation Age of Onset None Mother None Father No Known Problems Sister No Known Problems Sister No Known Problems Brother No Known Problems Brother Leukemia Brother No Known Problems Maternal Grandmother Lung Cancer Maternal Grandfather other (cancer throat) Maternal Grandfather No Known Problems Paternal Grandmother No Known Problems Paternal Grandfather Patient Allergies ALLERGIES No Known Allergies Current Medications Current Outpatient Medications on File Prior to Visit Medication Sig ondansetron (ZOFRAN) 4 mg tablet Take 4 mg by mouth every 8 hours as needed for nausea/vomiting. predniSONE (DELTASONE) 5 mg tablet Take 1 tablet by mouth once daily. predniSONE (DELTASONE) 20 mg tablet Take 20 mg by mouth once daily. eltrombopag olamine (PROMACTA) 50 mg tablet Take 1 tablet (50 mg) by mouth once daily. Administer on an empty stomach, 1 hour before or 2 hours after a meal. (Patient not taking: Reported on 02/14/2024) No current facility-administered medications on file prior to visit. Social History Social History Tobacco Use Smoking status: Never Smokeless tobacco: Never Vaping Use Vaping status: Never Used Substance Use Topics Alcohol use: Not Currently Drug use: Never Review of Symptoms REVIEW OF SYSTEMS GENERAL: No weight loss, malaise or fevers HEENT: Negative for frequent or significant headaches, No changes in hearing or vision, no nose bleeds or other nasal problems NECK: Negative for lumps, goiter, pain and significant neck swelling RESPIRATORY: Negative for cough, hemoptysis, wheezing, COPD, dyspnea or shortness of breath CARDIOVASCULAR: Negative for chest pain, leg swelling, hypertension, CHF or palpitations GI: No nausea, vomiting, or diarrhea : No history of dysuria, frequency or incontinence MUSCULOSKELETAL: Negative for joint pain or swelling, back pain or muscle pain SKIN: Rash on left shoulder in the last few weeks without itching, pain, or burning. PSYCH: See HPI HEMATOLOGY/LYMPHOLOGY: Negative for prolonged bleeding, bruising easily or swollen nodes ENDOCRINE: Negative for cold or heat intolerance, polyuria, polydipsia and goiter NEURO: No history of headaches, syncope, paralysis, se (more content not included)... [facility] 07-07-2024 History of Present illness Narrative Chief Complaint Patient presents with: Establish Care HPI Zane Buitrago is a 24 year old male who presents here today for Above Complaints. Patient's last PCP was Dr. Gongora in pediatrics with last OV more than 5 years ago. No questions or concerns. Patient is following up with Dr. Elam's office for history of chronic ITP diagnosed in 2022. He is on prednisone now along with monthly Rituxan infusions and is working on getting approval from insurance to start Promacta. Reviewed recent CBC. Denies bleeding or bruising symptoms today. Patient notes that over the last 3 weeks has been feeling more anxious and depressed related to some relationship issues with his girlfriend. Denies SI/HI, panic symptoms. Feels safe going home. Would like to try medication and counseling. LEVON-7 07/05/2024 LEVON-7 All Questions Feeling nervous, anxious, or on edge Several days Not being able to stop or control worrying Several days Worrying too much about different things Several days Trouble relaxing More than half the days Being so restless that it is hard to sit still Nearly Everyday Becoming easily annoyed or irritable Nearly Everyday Feeling afraid, as if something awful might happen Not at all LEVON-7 Score 11 Details PHQ-9 07/05/2024 PHQ-9 Scores Little interest or pleasure in doing things Several days Feeling down, depressed, or hopeless Several days Trouble falling or staying asleep, or sleeping too much Several days Feeling tired or having little energy Nearly every day Poor appetite or overeating Nearly every day Feeling bad about yourself - or that you are a failure or have let yourself or your family down Nearly every day Trouble concentrating on things, such as reading the newspaper or watching television Not at all Moving or speaking so slowly that other people could have noticed. Or the opposite - being so fidgety or restless that you have been moving around a lot more than usual Not at all Thoughts that you would be better off , or of hurting yourself in some way Not at all PHQ-9 Score 12 Details Refusing vaccinations today. Past medical history, appointments, medications, allergies reviewed. Previous Medical History PAST MEDICAL HISTORY Diagnosis Date Acute ITP (HCC) 06/25/2023 Chronic ITP (idiopathic thrombocytopenia) ([facility]) 09/24/2023 Dr. Elam Marijuana use NEGATIVE HISTORY OF 05/19/2012 normal color vision Previous Surgical History PAST SURGICAL HISTORY Procedure Laterality Date NONE Family History FAMILY HISTORY Problem Relation Age of Onset None Mother None Father No Known Problems Sister No Known Problems Sister No Known Problems Brother No Known Problems Brother Leukemia Brother No Known Problems Maternal Grandmother Lung Cancer Maternal Grandfather other (cancer throat) Maternal Grandfather No Known Problems Paternal Grandmother No Known Problems Paternal Grandfather Patient Allergies ALLERGIES No Known Allergies Current Medications Current Outpatient Medications on File Prior to Visit Medication Sig ondansetron (ZOFRAN) 4 mg tablet Take 4 mg by mouth every 8 hours as needed for nausea/vomiting. predniSONE (DELTASONE) 5 mg tablet Take 1 tablet by mouth once daily. predniSONE (DELTASONE) 20 mg tablet Take 20 mg by mouth once daily. eltrombopag olamine (PROMACTA) 50 mg tablet Take 1 tablet (50 mg) by mouth once daily. Administer on an empty stomach, 1 hour before or 2 hours after a meal. (Patient not taking: Reported on 02/14/2024) No current facility-administered medications on file prior to visit. Social History Social History Tobacco Use Smoking status: Never Smokeless tobacco: Never Vaping Use Vaping status: Never Used Substance Use Topics Alcohol use: Not Currently Drug use: Never Review of Symptoms REVIEW OF SYSTEMS GENERAL: No weight loss, malaise or fevers HEENT: Negative for frequent or significant headaches, No changes in hearing or vision, no nose bleeds or other nasal problems NECK: Negative for lumps, goiter, pain and significant neck swelling RESPIRATORY: Negative for cough, hemoptysis, wheezing, COPD, dyspnea or shortness of breath CARDIOVASCULAR: Negative for chest pain, leg swelling, hypertension, CHF or palpitations GI: No nausea, vomiting, or diarrhea : No history of dysuria, frequency or incontinence MUSCULOSKELETAL: Negative for joint pain or swelling, back pain or muscle pain SKIN: Rash on left shoulder in the last few weeks without itching, pain, or burning. PSYCH: See HPI HEMATOLOGY/LYMPHOLOGY: Negative for prolonged bleeding, bruising easily or swollen nodes ENDOCRINE: Negative for cold or heat intolerance, polyuria, polydipsia and goiter NEURO: No history of headaches, syncope, paralysis, seizures or tremors EXAM: BP 110/62 Pulse 83 Resp 16 Ht 172.8 cm (5' 8.03) Wt 79.7 kg (175 lb 12.8 oz) SpO2 99% BMI 26.71 kg/m General Appearance: Well appearing, alert, in no acute distress, well-hydrated, well nourished.. Skin: scattered flat red rash on left shoulder consistent with tinea versicolor Head: Normocephalic, no masses, lesions, tenderness or abnormalities. Eyes: Anicteric sclera. Pupils are equally round and reactive to light. Extraocular movements are intact. . Ears: External ears normal, canals clear. Oropharynx: Lips, mucosa, and tongue normal, teeth and gums normal, oropharynx normal. Neck: Supple, no adenopathy; thyroid symmetric, normal size, no bruits. Lungs: Lungs clear to auscultation. No wheezing, rhonchi, rales.. Heart: RRR without murmur, gallop, or rubs. No ectopy. Abdomen: Normal abdominal exam, Abdomen soft, non-tender. Bowel sounds normal. No masses, organomegaly. Extremities: No deformities, edema, skin discoloration, clubbing or cyanosis. Good capillary refill. . Peripheral Pulses: Normal. Neurologic: CN II-XII grossly intact. Lymph Nodes: No cervical lymphadenopathy and No supraclavicular lymphadenopathy. Health Maintenance List Covid-19 Vaccine(1) Never done Pneumococcal Vaccine(1 of 2 - PCV) Never done HPV Vaccine(2 - Male 2-dose series) due on 11/19/2012 Meningococcal B Vaccine: Consider Based On Risk(1 of 2 - Patient Seeks Protection) Never done Depression Screening Never done Anxiety Screening Never done HIV Screening Never done Shingrix Vaccine(1 of 2) Never done DTaP,Tdap,Td Vaccine(5 - Td or Tdap) due on 05/19/2022 Influenza Vaccine(1) due on 06/14/2024 Hepatitis C Screening Completed Data reviewed Latest Ref Rng 05/07/2024 05/15/2024 05/22/2024 06/19/2024 WBC 3.70 - 11.00 k/uL 10.37 5.01 9.92 8.11 RBC 4.20 - 6.00 m/uL 4.36 4.09 (L) 4.75 5.19 Hemoglobin 13.0 - 17.0 g/dL 13.5 12.6 (L) 14.7 15.7 Hematocrit 39.0 - 51.0 % 39.4 36.9 (L) 42.5 45.4 MCV 80.0 - 100.0 fL 90.4 90.2 89.5 87.5 MCH 26.0 - 34.0 pg 31.0 30.8 30.9 30.3 MCHC 30.5 - 36.0 g/dL 34.3 34.1 34.6 34.6 RDW-CV 11.5 - 15.0 % 12.2 12.1 11.9 11.3 (L) Platelet Count 150 - 400 k/uL 194 142 (L) 194 213 MPV 9.0 - 12.7 fL 10.8 11.2 10.6 10.8 Neut% % 83.2 42.7 71.1 86.0 Abs Neut (ANC) 1.45 - 7.50 k/uL 8.63 (H) 2.14 7.05 6.97 Lymph% % 13.8 48.7 22.4 10.7 Abs Lymph 1.00 - 4.00 k/uL 1.43 2.44 2.22 0.87 (L) [place]% % 2.4 6.4 5.0 2.7 Abs [place] <0.87 k/uL 0.25 0.32 0.50 0.22 Eosin% % 0.1 1.4 0.7 0.0 Abs Eosin <0.46 k/uL <0.03 0.07 0.07 <0.03 Baso% % 0.1 0.4 0.4 0.1 Abs Baso <0.11 k/uL <0.03 <0.03 0.04 <0.03 Immature Gran % % 0.4 0.4 0.4 0.5 IMMATURE GRANS (ABS) <0.10 k/uL 0.04 <0.03 0.04 0.04 NRBC /100 WBC 0.0 0.0 0.0 0.0 Absolute nRBC <0.01 k/uL <0.01 <0.01 <0.01 <0.01 DTYPE Auto Auto Auto Auto Legend: (H) High (L) Low ASSESSMENT/PLAN: 1. Encounter for medical examination to establish care - ICD9: V70.9, ICD10: Z00.00 (primary diagnosis) - Counseled on healthy diet and regular exercise - Follow up for annual exam in one year - COMPREHENSIVE METABOLIC PANEL - LIPID PANEL, NONFASTING 2. Anxiety with depression - ICD9: 300.4, ICD10: F41.8 New diagnosis. Start SSRI and refer to counseling. Obtain labs as ordered. Call in 1 month with update on symptoms. Red flags for re-assessment reviewed with patient in detail. - THYROID STIMULATING HORMONE - VITAMIN D 25 HYDROXY - VITAMIN B12 3. Chronic ITP (idiopathic thrombocytopenia) (HCC) - ICD9: 287.31, ICD10: D69.3 Platelet count normal on last check. No new bleeding or bruising symptoms. Recommendations per hematology. 4. Tinea versicolor - ICD9: 111.0, ICD10: B36.0 Start diflucan weekly x2 weeks. Call if not improving. - FLUCONAZOLE 150 MG TABLET Mariusz Allen MD documented in this encounter [facility] 07-03-2024 Note [facility] Medical Records Department [address] [place] [id number] Discharge Summary 07/03/24 1156 MR#: [id number] Acct: [id number] Name: ZANE BUITRAGO Rep #: [id number] : 2000 24 From: Suresh Oneill DO PCP: Care Physician,No Primary Status:DIS [id number] Prov[facility] Date of Admission: 07/01/24 Date of Discharge: 07/03/24 Primary Care Physician: No Primary Care Phys Reason For Visit: OPIATE DETOX Diagnosis Discharge Diagnosis (1) Opiate abuse, continuous: Status: Acute Code(s): F11.10 - Opioid abuse, uncomplicated (2) Desire for detoxification: Status: Acute Hospital Course Operations None Procedures None Summary of Care Provided Minutes Spent on Discharge: 25 Hospital Course: Patient is a 24-year-old male who presented to [facility] ED on 07/01/2024 for opiate detoxification. Hospital course as noted below. Patient discharged home in stable condition on 07/03. 1. Opiate abuse with desire for detoxification ??? Case management and addiction medicine followed. Treated with Subutex taper and other as needed medications per opiate withdrawal order set with good symptom control. Plan is for outpatient treatment at either 180 or on discharge with consideration of Vivitrol injections going forward. 2. Cannabis use ??? Encouraged cessation on discharge. 3. History of ITP and hypofibrogenemia ??? Follows with Dr. Elam, last office visit 04/09/24. Hospitalized at [facility] in 05/2024 after 1-month history of extensive bruising and fatigue, found to have low platelet count around 25K. Platelet count responded well to pulsed dose dexamethasone while inpatient. Bone marrow then with no evidence of leukemia. Was able to be discharged home after 3-day hospitalization. Had slow ITP response noted on higher dose prednisone after hospitalization but then had prescriptions to [facility]. Was then treated with Rituxan with good response. Plan as of 04/09 was more prednisone 10 mg x 1 month then 5 mg x 1 month then off; has completed this course of prednisone. Planning to start Promacta in outpatient setting soon. Platelet count 165 on this admission. No inpatient needs, continue outpatient follow-up. Total clinical time spent by myself addressing the patient's medical issues, reviewing all the data, and collaborating with patient's care team: 25 minutes. Physical Exam Const alert, oriented x3, no apparent distress and average body habitus Constitutional Narrative: Young male, energy improved from admission, laying comfortably in bed, in no acute distress. Stable. General Appearance: cooperative and comfortable HEENT normocephalic, head/scalp atraumatic, hearing grossly normal bilaterally, nasal mucous membranes and turbinates normal and moist oral mucous membranes Eyes PERRL, EOMs intact bilaterally and conjunctivae normal Neck full ROM Chest inspection of chest normal Resp normal respiratory effort, normal air movement, no use of accessory muscles and clear to auscultation bilaterally Cardio regular rate, regular rhythm, no murmurs and peripheral pulses 2+ throughout GI normal to inspection, nondistended, normoactive bowel sounds, soft to palpation, non-tender and non- distended Back/Spine normal ROM Extremity normal to inspection, full ROM and no pedal edema Skin no rashes or lesions noted Neuro moves all extremities and no focal motor deficits Speech: speech normal Psych mental status grossly normal Weight / BMI Weight Weight: 75 kg Body Mass Index (BMI) 24.4 ABG / Lab / Microbiology Data 07/01/24 11:01 07/01/24 11:01 D/C Instructions Discharge Diet: No restrictions Meaningful Use Info Meaningful Use Meaningful Use Diagnoses (Choose all that apply): None applicable Ischemic Stroke Statin Dosing Therapy Reference: STATIN DOSE THERAPY REFERENCE: * Patients > 75 years receive moderate or high dose statin therapy. * Patients 75 years or YOUNGER should receive HIGH intensity statin dose unless contraindicated. You will be required to document reason for non-treatment if statin daily dose does not meet guidelines. HIGH DOSE STATIN THERAPY DAILY Atorvastatin > than or = to 40 mg Rosuvastatin > than or = to 20 mg Amlodipine + Atorvastatin > than or = to 2.5/40 mg Ezetimibe + Simvastatin 10/80 mg Simvastatin 80mg Discharge Plan Admission Admit Date/Time: 07/01/24 12:20 Primary Reason for Your Visit: Opiate withdrawal Attending Provider: Suresh Oneill Primary Care Provider: Care Physician,No Primary Instructions Additional Instructions / Restrictions: Please follow-up at either [facility] or [facility] this coming week to discuss when you can start receiving Vivitrol injections to help with cravings for opiates. Di (more content not included)... [facility] 06-24-2024 Telephone encounter Note Voicemail received from pt's mother stating assistance [employer] is to be sending a fax to office for pt to attest to no-income. No fax received to-date. SW called mother back to inform her nothing has been received. Phone off and no voicemail set up. Unable to leave message. [employer] will not release this form to office directly, only if permission given by pt himself over the phone. SEMAJ attempted to arrange pt connection to [employer] at last treatment, pt declined to do in person, phone number given to mother and pt that date. SW will await further steps or information from pt or mother. BARBI Shields [facility] 06-24-2024 Miscellaneous Notes Voicemail received from pt's mother stating assistance [employer] is to be sending a fax to office for pt to attest to no-income. No fax received to-date. SW called mother back to inform her nothing has been received. Phone off and no voicemail set up. Unable to leave message. Assistance [employer] will not release this form to office directly, only if permission given by pt himself over the phone. SW attempted to arrange pt connection to [employer] at last treatment, pt declined to do in person, phone number given to mother and pt that date. SW will await further steps or information from pt or mother. BARBI Shields documented in this encounter [facility] 05-25-2024 History of Present illness Narrative Patient here for rituximab. He states that he is still in the process for the financial help with the promacta, so he has not started this yet. documented in this encounter [facility] 05-25-2024 Note HNO ID: [id number] Author: NEETA MORENO RN Service: ? Author Type: Registered Nurse Type: Progress Notes Filed: 05/25/2024 14:33 Note Text: Patient here for rituximab. He states that he is still in the process for the financial help with the promacta, so he has not started this yet. [facility] 05-22-2024 Telephone encounter Note OK to schedule per treatment plan-Kristen. 2 hour spot per Kristen. Scheduled with patient. [facility] Work Phone: 05-22-2024 Miscellaneous Notes OK to schedule per treatment plan-Kristen. 2 hour spot per Kristen. Scheduled with patient. FYI on Rituxan. Kristen says it may take up to a week to receive. Bernadette Barron LPN Patient called and was informed that we will contact him to schedule rituxan once we receive. Images from the original note were not included. 1st attempt. Called patient to inform below. VM full. Appointment canceled. trans from treatment plan - Debi, Patient is free med that is supplied up front. Will notify when here then schedule infusion please. Could take a week. kristen Deviations from AMB RITUXIMAB 375 - Q28D Deviations riTUXimab 700 mg in NaCl 0.9% 250 mL (RITUXAN) 375 mg/m2, INTRAVENOUS, ONCE Starting when released Total Volume = 250 ml Infuse 50 ml over 30 minutes then 200 ml over 60 minutes. (free med) exp 1000 04/14/24 (room temp) Change Copy Cycle Cycle, Day Cycle 6, Days: 1 User Killian Elam DO 05/17/2024 3:3 documented in this encounter [facility] 05-20-2024 Telephone encounter Note FYI on Rituxan. Kristen says it may take up to a week to receive. Bernadette Barron LPN [facility] 05-20-2024 Telephone encounter Note Patient called and was informed that we will contact him to schedule rituxan once we receive. [facility] 05-20-2024 Telephone encounter Note Images from the original note were not included. 1st attempt. Called patient to inform below. VM full. Appointment canceled. trans from treatment plan - Hello, Patient is free med that is supplied up front. Will notify when here then schedule infusion please. Could take a week. kristen Deviations from [facility]B RITUXIMAB 375 - Q28D Deviations riTUXimab 700 mg in NaCl 0.9% 250 mL (RITUXAN) 375 mg/m2, INTRAVENOUS, ONCE Starting when released Total Volume = 250 ml Infuse 50 ml over 30 minutes then 200 ml over 60 minutes. (free med) exp 1000 04/14/24 (room temp) Change Copy Cycle Cycle, Day Cycle 6, Days: 1 User Killian Elam DO 05/17/2024 3:3 [facility] 05-19-2024 Telephone encounter Note Spoke with patient, advising the need for infusion. Patient stated to schedule whenever and he would see it on MyChart and be here. Patient scheduled. Amanda Hercules [facility] 05-19-2024 Miscellaneous Notes Spoke with patient, advising the need for infusion. Patient stated to schedule whenever and he would see it on MyChart and be here. Patient scheduled. Amanda Hercules Pt. Read my chart message , please reach out to get pt. Scheduled for rituximab next week. Jenny Hurley LPN Recent platelet count shows it is starting to slip. Please schedule for rituximab next week. Attempted to contact pt. Mailbox full unable to leave message . Sent my chart message. Jenny Hurley LPN Thank you. Killian Elam DO Patient needs to contact patient assistance and request no-income attestation letter to be faxed to our office so he can sign this. His mother has attempted to do this for him but the patient quality audit representative stated this had to be requested by the patient himself. Patient and patient's mother are both aware of this. Katherine Walsh LPN Recent platelet count shows it is starting to slip. Please schedule for rituximab next week. Any word as to where his prescription for Promacta stands? Killian Elam DO documented in this encounter [facility] 05-19-2024 Telephone encounter Note Pt. Read my chart message , please reach out to get pt. Scheduled for rituximab next week. Jenny Hurley LPN [facility] 05-19-2024 Telephone encounter Note Recent platelet count shows it is starting to slip. Please schedule for rituximab next week. Attempted to contact pt. Mailbox full unable to leave message . Sent my chart message. Jenny Hurley LPN [facility] 05-18-2024 Telephone encounter Note Thank you. Killian Elam DO [facility] 05-18-2024 Telephone encounter Note Patient needs to contact patient assistance and request no-income attestation letter to be faxed to our office so he can sign this. His mother has attempted to do this for him but the patient quality audit representative stated this had to be requested by the patient himself. Patient and patient's mother are both aware of this. Katherine Walsh LPN [facility] 05-17-2024 Telephone encounter Note Recent platelet count shows it is starting to slip. Please schedule for rituximab next week. Any word as to where his prescription for Promacta stands? Killian Elam DO [facility] 05-15-2024 Telephone encounter Note Completed and my chart message sent to patient informing. [facility] Work Phone: 05-15-2024 Miscellaneous Notes Completed and my chart message sent to patient informing. Please switch lab appointments as requested and notify patient. Katherine Walsh LPN Qwk labs scheduled thru 06/18. Missed CBC today. Will send mychart message. Pt should be weekly CBC possible tx. he does not have anything scheduled until 06/11, will need more scheduled. documented in this encounter [facility] 05-15-2024 Telephone encounter Note Please switch lab appointments as requested and notify patient. Katherine Walsh LPN [facility] 05-14-2024 Telephone encounter Note Qwk labs scheduled thru 06/18. [facility] 05-14-2024 Telephone encounter Note Missed CBC today. Will send YelloYello message. Pt should be weekly CBC possible tx. he does not have anything scheduled until 06/11, will need more scheduled. [facility] 04-20-2024 Telephone encounter Note Mother called back and stated that Zane said he is feeling much better and slept good last night, so he thinks he will be fine to come in as scheduled 04/23/24 for lab work. [facility] 04-20-2024 Miscellaneous Notes Mother called back and stated that Zane said he is feeling much better and slept good last night, so he thinks he will be fine to come in as scheduled 04/23/24 for lab work. Mother is going to call patient and call this nurse back. Olimpia Graves RN Care Coordination Triage Note [facility] Situation: Patient reports Fatigue and Pain/Back or Spine Pain/Headache Background: ITP, Q2 month Rituxan- last dose 04/13/24. Currently on prednisone 5 mg daily since 04/09. Fatigue started over the weekend. Per Dr. Elam's last OV notes from 04/09: Plan: -Decrease prednisone to 10 mg daily x 1 month then decrease to 5 mg x1 month then stop. -Rituximab on Saturday. -Start Promacta when receives it. -Weekly CBC beginning 04/23. Assessment: GENERALIZED PAIN Where is the pain? Legs, sometimes hips When did you first notice the pain? Its been awhile weeks How intense is the pain right now (scale of 1-10)? -05/23 medication, and muscle relaxer's. How do you describe the pain: unable to describe d/t patient not being with mom. Does the pain radiate anywhere? no Is the pain constant or intermittent? Intermittent What makes it better? Shower What makes it worse? Walks a lot or even if he's very active that's when he hurts really bad Have you had this pain before? yes If yes, when? its not as bad as when he went to the hospital for leg pain. He was super stiff and couldn't walk. Per mother, [facility] ED said it was side effects from chemotherapy. Nov or December of this year. ED gave him IVF and pain medication. Patient was receiving rituxan at the time. What are you taking anything for the pain? ibuprofen Are you doing anything else to help with the pain other than medications? (heat, cold, movement, stretching, etc) stretching? He pulls his leg up and stretches it out Fatigue: started over the weekend. Sleeping 10-12 hours in a 24 hour period. Fatigue is not limiting his ability to eat/drink fluids. Denies SOB, weakness in legs/arms, chest pain/pressure. Appetite/fluid intake: no issues that mother is aware of Denies unusual bruising or bleeding Mother unsure if he is still having dizziness that was reported last week. Recommendations: Per RNCC- Mother stated patient does not live with her and she has not seen him in the last few days. Informed mother we could check his labs tomorrow instead of waiting until . When she speaks to patient, if he is still not feeling well, has uncontrolled pain, weak/fatigued, does not look good, he should go to [facility] ED for evaluation. Mother stated she will call patient and see how he is feeling today and will call our office back. She was also agreeable to take him to [facility] ED if needed. Olimpia Graves RN April 20, 2024 11:32 AM SW spoke to pt's mother this date. She reports concern that pt is not doing well. She reports he is very pale, significantly fatigued, has constant pain in legs and overall doesn't look good at all. Pt's mother reports pt will not voice symptoms when here for treatments or office visits but she feels someone needs to know how he is really doing. She reports she gives him ibuprofen time to time but it does not help. Mother asking to speak to Olimpia and asking for a callback at her work. [phone] extension 3, ask for Hawa. Thank you, BARBI Shields documented in this encounter [facility] 04-20-2024 Telephone encounter Note Mother is going to call patient and call this nurse back. Olimpia Graves RN [facility] 04-20-2024 Telephone encounter Note Care Coordination Triage Note [facility] Situation: Patient reports Fatigue and Pain/Back or Spine Pain/Headache Background: ITP, Q2 month Rituxan- last dose 04/13/24. Currently on prednisone 5 mg daily since 04/09. Fatigue started over the weekend. Per Dr. Elam's last OV notes from 04/09: Plan: -Decrease prednisone to 10 mg daily x 1 month then decrease to 5 mg x1 month then stop. -Rituximab on Saturday. -Start Promacta when receives it. -Weekly CBC beginning 04/23. Assessment: GENERALIZED PAIN Where is the pain? Legs, sometimes hips When did you first notice the pain? Its been awhile weeks How intense is the pain right now (scale of 1-10)? 7-05/23 medication, and muscle relaxer's. How do you describe the pain: unable to describe d/t patient not being with mom. Does the pain radiate anywhere? no Is the pain constant or intermittent? Intermittent What makes it better? Shower What makes it worse? Walks a lot or even if he's very active that's when he hurts really bad Have you had this pain before? yes If yes, when? its not as bad as when he went to the hospital for leg pain. He was super stiff and couldn't walk. Per mother, [facility] ED said it was side effects from chemotherapy. Nov or December of this year. ED gave him IVF and pain medication. Patient was receiving rituxan at the time. What are you taking anything for the pain? ibuprofen Are you doing anything else to help with the pain other than medications? (heat, cold, movement, stretching, etc) stretching? He pulls his leg up and stretches it out Fatigue: started over the weekend. Sleeping 10-12 hours in a 24 hour period. Fatigue is not limiting his ability to eat/drink fluids. Denies SOB, weakness in legs/arms, chest pain/pressure. Appetite/fluid intake: no issues that mother is aware of Denies unusual bruising or bleeding Mother unsure if he is still having dizziness that was reported last week. Recommendations: Per RNCC- Mother stated patient does not live with her and she has not seen him in the last few days. Informed mother we could check his labs tomorrow instead of waiting until . When she speaks to patient, if he is still not feeling well, has uncontrolled pain, weak/fatigued, does not look good, he should go to [facility] ED for evaluation. Mother stated she will call patient and see how he is feeling today and will call our office back. She was also agreeable to take him to [facility] ED if needed. Olimpia Graves RN April 20, 2024 11:32 AM [facility] 04-20-2024 Telephone encounter Note SOCIAL WORK FOLLOW UP NOTE: [facility] Date of service: April 20, 2024 Zane Buitrago is being seen for a follow up social work visit. Today's visit includes: Hawa Duran TOPICS ADDRESSED: SW spoke to pt's mother this morning. She reports she has been attempting several times to call [employer] and have the no-income attestation letter sent to our office for pt to sign. She reports she has spoke to a rep several times and had given our office fax number to sent the form however when she called again this date to ask again the company reported no records of any request of the form. SW called [employer] this date and inquired about the form being faxed to office. Rep reports that per policy, this request needs to come directly from the patient. Pt scheduled for labs on , 04/23. Rep reports pt can call on his own or with assistance of SW to request form. PLAN: SW to follow pt at upcoming appointments and remain in contact with pt throughout treatment to address any psychosocial concerns if needed. F/U APPOINTMENT: PRN Assigned SW listed in Care Team tab: Yes BARBI Shields [facility] 04-20-2024 Miscellaneous Notes SOCIAL WORK FOLLOW UP NOTE: [facility] Date of service: April 20, 2024 Zane Buitrago is being seen for a follow up social work visit. Today's visit includes: Hawa Duran TOPICS ADDRESSED: SW spoke to pt's mother this morning. She reports she has been attempting several times to call [employer] and have the no-income attestation letter sent to our office for pt to sign. She reports she has spoke to a rep several times and had given our office fax number to sent the form however when she called again this date to ask again the company reported no records of any request of the form. SW called [employer] this date and inquired about the form being faxed to office. Rep reports that per policy, this request needs to come directly from the patient. Pt scheduled for labs on , 04/23. Rep reports pt can call on his own or with assistance of SW to request form. PLAN: SW to follow pt at upcoming appointments and remain in contact with pt throughout treatment to address any psychosocial concerns if needed. F/U APPOINTMENT: PRN Assigned SW listed in Care Team tab: Yes BARBI Shields documented in this encounter [facility] 04-20-2024 Telephone encounter Note SW spoke to pt's mother this date. She reports concern that pt is not doing well. She reports he is very pale, significantly fatigued, has constant pain in legs and overall doesn't look good at all. Pt's mother reports pt will not voice symptoms when here for treatments or office visits but she feels someone needs to know how he is really doing. She reports she gives him ibuprofen time to time but it does not help. Mother asking to speak to Olimpia and asking for a callback at her work. [phone] extension 3, ask for Hawa. Thank you, BARBI Shields [facility] 04-13-2024 Telephone encounter Note Will inform pt. Thank you. [facility] 04-13-2024 Miscellaneous Notes Will inform pt. Thank you. Sounds like a viral type vertigo. Can treat today then send to urgent care. He has no PCP. Killian Elam DO Pt here today for D1C5 Rituxan. States that he has been experiencing dizziness that started a few days ago. Pt states that sometimes it's a spinning sensation, other times its just a feeling of being unsteady. Typically happens when he is moving. States that when he is seated or laying down, the sensation stops. Pt states he is eating and drinking normally, although he feels queasy when he experiences the dizziness. Pt vomited 4 times yesterday and states he felt like he was running a fever but did not take his temp. Pt states he feels more fatigued today as compared to usual. Please advise. Today's vitals are T 98.6f BP 133/74 P88 documented in this encounter [facility] 04-13-2024 Telephone encounter Note Sounds like a viral type vertigo. Can treat today then send to urgent care. He has no PCP. Killian Elam DO [facility] 04-13-2024 Telephone encounter Note Pt here today for D1C5 Rituxan. States that he has been experiencing dizziness that started a few days ago. Pt states that sometimes it's a spinning sensation, other times its just a feeling of being unsteady. Typically happens when he is moving. States that when he is seated or laying down, the sensation stops. Pt states he is eating and drinking normally, although he feels queasy when he experiences the dizziness. Pt vomited 4 times yesterday and states he felt like he was running a fever but did not take his temp. Pt states he feels more fatigued today as compared to usual. Please advise. Today's vitals are T 98.6f BP 133/74 P88 [facility] 04-09-2024 Note HNO ID: [id number] Author: KILLIAN ELAM DO Service: ? Author Type: Physician Type: Progress Notes Filed: 04/09/2024 09:24 Note Text: Problems: 1) ITP. 2) Hypofibrinogenemia--resolved. HPI: The patient is an otherwise healthy 23-year-old male whom I saw in consultation at the [facility] ED 05/22/2023 for severe thrombocytopenia and bruising. Per my HPI there: The patient is a 23-year-old male with an unremarkable past medical history. He presented to the ED earlier this afternoon with complaints of bruising. Symptoms have been going on about a month. He was afebrile on presentation. He said for the last month whenever he gets up in the morning he feels exhausted and has all over body aches. Often has to soak in a hot tub to start feeling better. He has been noticing unprovoked bruises all over for the last month. He has not had petechiae. Occasional gum bleeding when he brushes his teeth. No epistaxis or rectal bleeding. He has not had fevers or drenching night sweats. His appetite has been poor and he has lost about 10 to 15 pounds. He endorses that if he lies on his stomach, he develops abdominal pain. He has developed reflux symptoms in the last few days. No nausea or vomiting. He has not had black or bloody stools. Pertinent lab findings were initial platelet count 26,000. Remainder of CBC was normal. No schistocytes observed. Coagulation times normal. Fibrinogen low. D-dimer was normal. Thrombin time was normal. He was started on pulse dose dexamethasone 40 mg daily which she received on Saturday, , Saturday and Saturday of last week. Hospital day 3 platelets had increased to 48,000. 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 COMMENT Flow cytometry, FISH and cytogenetic studies are pending. Clinical correlation and appropriate follow up are necessary. Case has been reviewed in consultation with Dr. Hernandes who concurs with the above diagnosis. BONE MARROW STUDY Slides are reviewed. CBC DATE: 05/23/23 WBC 8.18; RBC 4.99; HGB 15.5; HCT 45.3; MCV 98.8; RDW 12.8; PLTS 48,000 SEGS 80.9%; LYMPHS 14.5%; MONOS 3.9%; EOS 0.0%; BASOS 0.1%; Immature granulocytes 0.6% PERIPHERAL SMEAR: Submitted. RBC: Normocytic and normochromic. WBC: Unremarkable. The WBC count is compatible to as reported above. PLTS: Markedly decreased. BONE MARROW ASPIRATE DIFFERENTIAL: 200 cell count. Blasts % (normal 0-2): 0 Promyelocytes % (normal 1-5): 2 Myelocytes and metamyelocytes % (normal 17-41): 24 Bands and Segs % (normal 15-32): 35 Eos % (normal 1-6): 3 Basos % (normal 0-1): 0 Monocytes % (normal 0-4): 2 Erythroid Precursors % (normal 17-35): 22 Lymphocytes % (normal 7-13): 12 Plasma Cells % (normal 0-2): 0 ASPIRATE FINDINGS: Site: Not specified Spicular, Cellular M/E ratio: 2.9 (Normal 1.5-4.0) Megakaryocytes: Present. Hypolobated and micromegakaryocytes are noted. Erythropoiesis: Normoblastic. Granulopoiesis: Progressive and unremarkable. Comment: Megakaryocytic dysplasia is noted. CORE BIOPSY FINDINGS: Site: Not specified Adequacy: Limited Comment: The specimen predominantly consists of peripheral blood mixed with a few hematopoietic cells consisting of erythroid, myeloid and megakaryocytes. ASPIRATE CLOT FINDINGS: Site: Not specified Marrow particles: Numerous Cellularity: 50% M/E ratio: Within normal limits. Megakaryocytes: Present and increased in number. Granulomas: Absent. Lymphoid aggregates: Absent. Atypical infiltrates: Absent. SPECIAL STAINS WITH MATCHED CONTROLS: Iron: 1+, atypical or ring sideroblasts are not seen. Reticulin: No significant increase of reticulin fibers is noted. PAS: Highlights myeloid cells and megakaryocytes. Between February and May of this year he had been drinking heavily. Tequila. Approximately half of fifth a day. Started after a break-up with his girlfriend in February. After his ER visit, he cut down. Still drinks sporadically. Previous therapy: 1) Dexamethasone 40 mg x4 days. 2) IVIG. 3) Rituximab. Current therapy: 1) Prednisone 20 mg daily started 06/11. 2) Rituximab. 3) Promacta--Rx in process. Started prednisone 06/11 for platelet count of 17,000. Had increased to 89,000-week later but a week after that decline to 28,000. Received IVIG 1 g/day x2 days 06/26 and 06/27. Tolerated well. Presents for ongoing hematologic management. Interim history: Occasional unexplained bruises on legs. No bleeding issues. No febrile illnesses since last seen. PMH, medications and allergies personally reviewed by me today. Any changes documented in appropriate section. PHYSICAL EXAM: Vitals: Blood pressure 117/68, pulse 60, temperature 36.2 ?C (97.1 ?F), temperature source Temporal, weight 78.5 kg (173 lb), SpO2 98%. (more content not included)... [facility] 04-09-2024 History of Present illness Narrative Problems: 1) ITP. 2) Hypofibrinogenemia--resolved. HPI: The patient is an otherwise healthy 23-year-old male whom I saw in consultation at the [facility] ED 05/22/2023 for severe thrombocytopenia and bruising. Per my HPI there: The patient is a 23-year-old male with an unremarkable past medical history. He presented to the ED earlier this afternoon with complaints of bruising. Symptoms have been going on about a month. He was afebrile on presentation. He said for the last month whenever he gets up in the morning he feels exhausted and has all over body aches. Often has to soak in a hot tub to start feeling better. He has been noticing unprovoked bruises all over for the last month. He has not had petechiae. Occasional gum bleeding when he brushes his teeth. No epistaxis or rectal bleeding. He has not had fevers or drenching night sweats. His appetite has been poor and he has lost about 10 to 15 pounds. He endorses that if he lies on his stomach, he develops abdominal pain. He has developed reflux symptoms in the last few days. No nausea or vomiting. He has not had black or bloody stools. Pertinent lab findings were initial platelet count 26,000. Remainder of CBC was normal. No schistocytes observed. Coagulation times normal. Fibrinogen low. D-dimer was normal. Thrombin time was normal. He was started on pulse dose dexamethasone 40 mg daily which she received on Saturday, , Saturday and Saturday of last week. Hospital day 3 platelets had increased to 48,000. 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 COMMENT Flow cytometry, FISH and cytogenetic studies are pending. Clinical correlation and appropriate follow up are necessary. Case has been reviewed in consultation with Dr. Hernandes who concurs with the above diagnosis. BONE MARROW STUDY Slides are reviewed. CBC DATE: 05/23/23 WBC 8.18; RBC 4.99; HGB 15.5; HCT 45.3; MCV 98.8; RDW 12.8; PLTS 48,000 SEGS 80.9%; LYMPHS 14.5%; MONOS 3.9%; EOS 0.0%; BASOS 0.1%; Immature granulocytes 0.6% PERIPHERAL SMEAR: Submitted. RBC: Normocytic and normochromic. WBC: Unremarkable. The WBC count is compatible to as reported above. PLTS: Markedly decreased. BONE MARROW ASPIRATE DIFFERENTIAL: 200 cell count. Blasts % (normal 0-2): 0 Promyelocytes % (normal 1-5): 2 Myelocytes and metamyelocytes % (normal 17-41): 24 Bands and Segs % (normal 15-32): 35 Eos % (normal 1-6): 3 Basos % (normal 0-1): 0 Monocytes % (normal 0-4): 2 Erythroid Precursors % (normal 17-35): 22 Lymphocytes % (normal 7-13): 12 Plasma Cells % (normal 0-2): 0 ASPIRATE FINDINGS: Site: Not specified Spicular, Cellular M/E ratio: 2.9 (Normal 1.5-4.0) Megakaryocytes: Present. Hypolobated and micromegakaryocytes are noted. Erythropoiesis: Normoblastic. Granulopoiesis: Progressive and unremarkable. Comment: Megakaryocytic dysplasia is noted. CORE BIOPSY FINDINGS: Site: Not specified Adequacy: Limited Comment: The specimen predominantly consists of peripheral blood mixed with a few hematopoietic cells consisting of erythroid, myeloid and megakaryocytes. ASPIRATE CLOT FINDINGS: Site: Not specified Marrow particles: Numerous Cellularity: 50% M/E ratio: Within normal limits. Megakaryocytes: Present and increased in number. Granulomas: Absent. Lymphoid aggregates: Absent. Atypical infiltrates: Absent. SPECIAL STAINS WITH MATCHED CONTROLS: Iron: 1+, atypical or ring sideroblasts are not seen. Reticulin: No significant increase of reticulin fibers is noted. PAS: Highlights myeloid cells and megakaryocytes. Between February and May of this year he had been drinking heavily. Tequila. Approximately half of fifth a day. Started after a break-up with his girlfriend in February. After his ER visit, he cut down. Still drinks sporadically. Previous therapy: 1) Dexamethasone 40 mg x4 days. 2) IVIG. 3) Rituximab. Current therapy: 1) Prednisone 20 mg daily started 06/11. 2) Rituximab. 3) Promacta--Rx in process. Started prednisone 06/11 for platelet count of 17,000. Had increased to 89,000-week later but a week after that decline to 28,000. Received IVIG 1 g/day x2 days 06/26 and 06/27. Tolerated well. Presents for ongoing hematologic management. Interim history: Occasional unexplained bruises on legs. No bleeding issues. No febrile illnesses since last seen. PMH, medications and allergies personally reviewed by me today. Any changes documented in appropriate section. PHYSICAL EXAM: Vitals: Blood pressure 117/68, pulse 60, temperature 36.2 C (97.1 F), temperature source Temporal, weight 78.5 kg (173 lb), SpO2 98%. Well-appearing and in no acute distress. EYES: Sclerae are anicteric bilaterally. ENT: Oral mucosa is unremarkable. There is no sign of oral or gingival bleeding. LYMPHATIC: There is no palpable cervical, supraclavicular, axillary adenopathy. RESPIRATORY: Inspiratory breath sounds are of normal intensity in all hoskins. No rales, wheezes or rhonchi. CARDIOVASCULAR: Rhythm is regular. ABDOMEN: The abdomen is nondistended. No splenomegaly or hepatomegaly. No tenderness. Extremities: No swelling or edema. SKIN: Ecchymosis lateral right chest. LABS: PATHOLOGY: Bone marrow biopsy 11/04/2023: A-C. Bone marrow, aspirate smear, touch imprint and core biopsy, with clot section: - Cellular bone marrow (~70%) with trilineage hematopoiesis and mild megakaryocytic hyperplasia. - Stainable iron is increased. - See comment. D. Peripheral blood smear: - Thrombocytopenia. - Mild absolute lymphocytosis without leukocytosis. 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 Prior bone marrow biopsy performed outside was reported to show small and hypolobated megakaryocytes. Bone marrow evaluation performed to assess this finding. Morphologic review demonstrates a relatively normocellular bone marrow (approximately 70%) showing maturing trilineage hematopoiesis with mild megakaryocytic hyperplasia, including small and hypolobated forms and immature megakaryocytes. Flow cytometric immunophenotypic studies do not show evidence of a lymphoproliferative disorder or increased CD34 positive blast population ([id number]). While these morphologic findings could be seen with ITP, the possibility of involvement by a low-grade myeloid neoplasm or other genetic causes of thrombocytopenia cannot be entirely excluded. Correlation with the clinical and other relevant laboratory findings, including the results of the pending molecular myeloid NGS cytogenetic studies is recommended. DIAGNOSIS: 46,XY[20] Flow bone marrow: Interpretation There is no immunophenotypic evidence of involvement by a lymphoproliferative disorder or abnormal blast population. Correlation with the clinical and bone marrow histopathologic findings is suggested. ASSESSMENT/PLAN: (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 -Platelet count responded very well to pulse dose dexamethasone. -Bone marrow was normocellular with no evidence of acute leukemia but he was found to have hypolobated and micromegakaryocytes. -Mild splenomegaly on ultrasound. Could not appreciate on exam. -The ITP had been slow to respond to higher dose prednisone. -Brisk response to IVIG. -Reviewed the results of the second bone marrow biopsy. Consistent with first. -Chronic myeloid neoplasm NGS panel negative. -I did not advise splenectomy because of his social circumstances and issues with travel to [facility] and the longer-term immunosuppressive effect. -Good response to rituximab. Plan: -Decrease prednisone to 10 mg daily x 1 month then decrease to 5 mg x1 month then stop. -Rituximab on Saturday. -Start Promacta when receives it. -Weekly CBC beginning 04/23. 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 Thrombin time was normal. -Fibrinogen antigen and activity both normal. Plan: -No indication to monitor unless recurrent bruising and/or bleeding occurs. Portions of this documentation were copied and pasted from previous office visit notes in order to provide a cohesive continuity of the history. The note has been reviewed and edited and updated as necessary. I spent a total of 15 minutes on the date of the service which included preparing to see the patient, [id number] patient care, completing clinical documentation, obtaining and/or reviewing separately obtained history, performing a medically appropriate examination, counseling and educating the patient/family/caregiver, ordering medications, tests, or procedures, communicating with other HCPs (not separately reported), and communicating results to the patient/family/caregiver. Killian Elam DO documented in this encounter [facility] 04-07-2024 Telephone encounter Note SOCIAL WORK FOLLOW UP NOTE: [facility] Date of service: April 07, 2024 Spoke with pharmacy this who has been trying to reach pt to sign a no income attestation form for [employer] assistance company. Pharmacy and assistance company have had difficulty reaching pt. SW sent MeroArte message to pt this date informing him to call [employer] and request attestation form to be sent to this office so pt can sign when he's here this coming . Will discuss with pt in person this week if form not received before . BARBI Shields [facility] 04-07-2024 Miscellaneous Notes SOCIAL WORK FOLLOW UP NOTE: [facility] Date of service: April 07, 2024 Spoke with pharmacy this who has been trying to reach pt to sign a no income attestation form for [employer], [employer] assistance company. Pharmacy and assistance company have had difficulty reaching pt. SEMAJ sent MeroArte message to pt this date informing him to call [employer] and request attestation form to be sent to this office so pt can sign when he's here this coming . Will discuss with pt in person this week if form not received before . BARBI Shields sent mychart message. Bernadette Barron LPN ----- Message from Killian Elam, DO sent at 04/03/2024 5:22 PM EDT ----- How much prednisone is he taking now? documented in this encounter [facility] 04-06-2024 Telephone encounter Note sent mychart message. Bernadette Barron LPN [facility] 04-06-2024 Telephone encounter Note ----- Message from Killian Elam, DO sent at 04/03/2024 5:22 PM EDT ----- How much prednisone is he taking now? [facility] 03-26-2024 Telephone encounter Note Pt. Had labs today , no transfusion needed per Dr. Elam Unable to leave message on pts. Or his mothers voicemail as one is full and the other is not set up. My chart message sent to pt. Jenny Hurley LPN [facility] 03-26-2024 Miscellaneous Notes Pt. Had labs today , no transfusion needed per Dr. Elam Unable to leave message on pts. Or his mothers voicemail as one is full and the other is not set up. My chart message sent to pt. Jenny Hurley LPN documented in this encounter [facility] 03-12-2024 Telephone encounter Note SW met with pt and mother this date when here for labs. Pt signed pt assistance application for [employer]. SW successfully faxed this date to [employer] ([employer] reviewing agency) and sent forms to internal scanning. HILLARY Shields-Louis [facility] 03-12-2024 Miscellaneous Notes SW met with pt and mother this date when here for labs. Pt signed pt assistance application for [employer]. SW successfully faxed this date to [employer] ([employer] reviewing agency) and sent forms to internal scanning. HILLARY Shields-Louis documented in this encounter [facility] 03-06-2024 Telephone encounter Note PT added on for appt for IVIG today and rituxan was added to 03/19 and get permission from chemo nurse to do so. Spoke with patient and patient mother and they are aware of time change on 03/19. Kari Magaña [facility] 03-06-2024 Miscellaneous Notes PT added on for appt for IVIG today and rituxan was added to 03/19 and get permission from chemo nurse to do so. Spoke with patient and patient mother and they are aware of time change on 03/19. Kari Magaña I spoke with the specialty pharmacy and they will reach out to [employer] to see if they have a decision on [employer] free drug program. Chemo nurse has called patient's mother several times to see if she can bring him in today for IVIG- no return call. Katherine Walsh, ANIRUDH [id number]- Patient's mother is on her way to bring patient here for IVIG. PSS- Rituximab soon as able. Katherine Walsh LPN Platelets decreasing again. Can we give a dose of IVIG Saturday?? Rituximab soon as able. Also, is he going to get Promacta? If not, then needs to start Nplate injections. Killian Elam DO documented in this encounter [facility] 03-06-2024 Telephone encounter Note I spoke with the specialty pharmacy and they will reach out to [facility] to see if they have a decision on [employer] free drug program. Chemo nurse has called patient's mother several times to see if she can bring him in today for IVIG- no return call. Katherine Walsh LPN [id number]- Patient's mother is on her way to bring patient here for IVIG. PSS- Rituximab soon as able. Katherine Walsh LPN [facility] 03-05-2024 Telephone encounter Note Platelets decreasing again. Can we give a dose of IVIG Saturday?? Rituximab soon as able. Also, is he going to get Promacta? If not, then needs to start Nplate injections. Killian Elam DO [facility] 02-21-2024 Telephone encounter Note Patient to be released from intermediate 03/24/2024. Katherine Walsh LPN [facility] 02-21-2024 Miscellaneous Notes Patient to be released from intermediate 03/24/2024. Katherine Walsh LPN Schedule updated. Alison notified Per Dr. Elam- platelet count stable. May change Rituxan to every 2 months. Last dose 02/17/2024. Next Rituxan will be due in April. Patient will need to continue weekly CBC here. Please contact Alison at [facility] @ [phone] to notify of appointments. Not sure of release date. Katherine Walsh LPN documented in this encounter [facility] 02-21-2024 Telephone encounter Note Schedule updated. Alison notified [facility] Work Phone: 02-20-2024 Telephone encounter Note Per Dr. Elam- platelet count stable. May change Rituxan to every 2 months. Last dose 02/17/2024. Next Rituxan will be due in April. Patient will need to continue weekly CBC here. Please contact Alison at [facility] @ [phone] to notify of appointments. Not sure of release date. Katherine Walsh LPN [facility] 02-14-2024 Note HNO ID: [id number] Author: KILLIAN ELAM, DO Service: ? Author Type: Physician Type: Progress Notes Filed: 02/14/2024 14:58 Note Text: Problems: 1) ITP. 2) Hypofibrinogenemia--resolved. HPI: The patient is an otherwise healthy 23-year-old male whom I saw in consultation at the [facility] ED 05/22/2023 for severe thrombocytopenia and bruising. Per my HPI there: The patient is a 23-year-old male with an unremarkable past medical history. He presented to the ED earlier this afternoon with complaints of bruising. Symptoms have been going on about a month. He was afebrile on presentation. He said for the last month whenever he gets up in the morning he feels exhausted and has all over body aches. Often has to soak in a hot tub to start feeling better. He has been noticing unprovoked bruises all over for the last month. He has not had petechiae. Occasional gum bleeding when he brushes his teeth. No epistaxis or rectal bleeding. He has not had fevers or drenching night sweats. His appetite has been poor and he has lost about 10 to 15 pounds. He endorses that if he lies on his stomach, he develops abdominal pain. He has developed reflux symptoms in the last few days. No nausea or vomiting. He has not had black or bloody stools. Pertinent lab findings were initial platelet count 26,000. Remainder of CBC was normal. No schistocytes observed. Coagulation times normal. Fibrinogen low. D-dimer was normal. Thrombin time was normal. He was started on pulse dose dexamethasone 40 mg daily which she received on Saturday, , Saturday and Saturday of last week. Hospital day 3 platelets had increased to 48,000. 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 COMMENT Flow cytometry, FISH and cytogenetic studies are pending. Clinical correlation and appropriate follow up are necessary. Case has been reviewed in consultation with Dr. Hernandes who concurs with the above diagnosis. BONE MARROW STUDY Slides are reviewed. CBC DATE: 05/23/23 WBC 8.18; RBC 4.99; HGB 15.5; HCT 45.3; MCV 98.8; RDW 12.8; PLTS 48,000 SEGS 80.9%; LYMPHS 14.5%; MONOS 3.9%; EOS 0.0%; BASOS 0.1%; Immature granulocytes 0.6% PERIPHERAL SMEAR: Submitted. RBC: Normocytic and normochromic. WBC: Unremarkable. The WBC count is compatible to as reported above. PLTS: Markedly decreased. BONE MARROW ASPIRATE DIFFERENTIAL: 200 cell count. Blasts % (normal 0-2): 0 Promyelocytes % (normal 1-5): 2 Myelocytes and metamyelocytes % (normal 17-41): 24 Bands and Segs % (normal 15-32): 35 Eos % (normal 1-6): 3 Basos % (normal 0-1): 0 Monocytes % (normal 0-4): 2 Erythroid Precursors % (normal 17-35): 22 Lymphocytes % (normal 7-13): 12 Plasma Cells % (normal 0-2): 0 ASPIRATE FINDINGS: Site: Not specified Spicular, Cellular M/E ratio: 2.9 (Normal 1.5-4.0) Megakaryocytes: Present. Hypolobated and micromegakaryocytes are noted. Erythropoiesis: Normoblastic. Granulopoiesis: Progressive and unremarkable. Comment: Megakaryocytic dysplasia is noted. CORE BIOPSY FINDINGS: Site: Not specified Adequacy: Limited Comment: The specimen predominantly consists of peripheral blood mixed with a few hematopoietic cells consisting of erythroid, myeloid and megakaryocytes. ASPIRATE CLOT FINDINGS: Site: Not specified Marrow particles: Numerous Cellularity: 50% M/E ratio: Within normal limits. Megakaryocytes: Present and increased in number. Granulomas: Absent. Lymphoid aggregates: Absent. Atypical infiltrates: Absent. SPECIAL STAINS WITH MATCHED CONTROLS: Iron: 1+, atypical or ring sideroblasts are not seen. Reticulin: No significant increase of reticulin fibers is noted. PAS: Highlights myeloid cells and megakaryocytes. Between February and May of this year he had been drinking heavily. Tequila. Approximately half of fifth a day. Started after a break-up with his girlfriend in February. After his ER visit, he cut down. Still drinks sporadically. Previous therapy: 1) Dexamethasone 40 mg x4 days. 2) IVIG. 3) Rituximab. Current therapy: 1) Prednisone 20 mg daily started 06/11. Started prednisone 06/11 for platelet count of 17,000. Had increased to 89,000-week later but a week after that decline to 28,000. Received IVIG 1 g/day x2 days 06/26 and 06/27. Tolerated well. Presents for ongoing hematologic management. Interim history: He is back in intermediate until mid March. One bruise right side but thinks it is from the bunk he has been sleeping on. No unusual bleeding. PMH, medications and allergies personally reviewed by me today. Any changes documented in appropriate section. PHYSICAL EXAM: Vitals: Blood pressure 130/78, pulse (!) 133, weight 68.7 kg (151 lb 8 oz), SpO2 96%. Well-appearing and in no acute distress. EYES: Sclerae are (more content not included)... [facility] 02-14-2024 History of Present illness Narrative Problems: 1) ITP. 2) Hypofibrinogenemia--resolved. HPI: The patient is an otherwise healthy 23-year-old male whom I saw in consultation at the [facility] ED 05/22/2023 for severe thrombocytopenia and bruising. Per my HPI there: The patient is a 23-year-old male with an unremarkable past medical history. He presented to the ED earlier this afternoon with complaints of bruising. Symptoms have been going on about a month. He was afebrile on presentation. He said for the last month whenever he gets up in the morning he feels exhausted and has all over body aches. Often has to soak in a hot tub to start feeling better. He has been noticing unprovoked bruises all over for the last month. He has not had petechiae. Occasional gum bleeding when he brushes his teeth. No epistaxis or rectal bleeding. He has not had fevers or drenching night sweats. His appetite has been poor and he has lost about 10 to 15 pounds. He endorses that if he lies on his stomach, he develops abdominal pain. He has developed reflux symptoms in the last few days. No nausea or vomiting. He has not had black or bloody stools. Pertinent lab findings were initial platelet count 26,000. Remainder of CBC was normal. No schistocytes observed. Coagulation times normal. Fibrinogen low. D-dimer was normal. Thrombin time was normal. He was started on pulse dose dexamethasone 40 mg daily which she received on Saturday, , Saturday and Saturday of last week. Hospital day 3 platelets had increased to 48,000. 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 COMMENT Flow cytometry, FISH and cytogenetic studies are pending. Clinical correlation and appropriate follow up are necessary. Case has been reviewed in consultation with Dr. Hernandes who concurs with the above diagnosis. BONE MARROW STUDY Slides are reviewed. CBC DATE: 05/23/23 WBC 8.18; RBC 4.99; HGB 15.5; HCT 45.3; MCV 98.8; RDW 12.8; PLTS 48,000 SEGS 80.9%; LYMPHS 14.5%; MONOS 3.9%; EOS 0.0%; BASOS 0.1%; Immature granulocytes 0.6% PERIPHERAL SMEAR: Submitted. RBC: Normocytic and normochromic. WBC: Unremarkable. The WBC count is compatible to as reported above. PLTS: Markedly decreased. BONE MARROW ASPIRATE DIFFERENTIAL: 200 cell count. Blasts % (normal 0-2): 0 Promyelocytes % (normal 1-5): 2 Myelocytes and metamyelocytes % (normal 17-41): 24 Bands and Segs % (normal 15-32): 35 Eos % (normal 1-6): 3 Basos % (normal 0-1): 0 Monocytes % (normal 0-4): 2 Erythroid Precursors % (normal 17-35): 22 Lymphocytes % (normal 7-13): 12 Plasma Cells % (normal 0-2): 0 ASPIRATE FINDINGS: Site: Not specified Spicular, Cellular M/E ratio: 2.9 (Normal 1.5-4.0) Megakaryocytes: Present. Hypolobated and micromegakaryocytes are noted. Erythropoiesis: Normoblastic. Granulopoiesis: Progressive and unremarkable. Comment: Megakaryocytic dysplasia is noted. CORE BIOPSY FINDINGS: Site: Not specified Adequacy: Limited Comment: The specimen predominantly consists of peripheral blood mixed with a few hematopoietic cells consisting of erythroid, myeloid and megakaryocytes. ASPIRATE CLOT FINDINGS: Site: Not specified Marrow particles: Numerous Cellularity: 50% M/E ratio: Within normal limits. Megakaryocytes: Present and increased in number. Granulomas: Absent. Lymphoid aggregates: Absent. Atypical infiltrates: Absent. SPECIAL STAINS WITH MATCHED CONTROLS: Iron: 1+, atypical or ring sideroblasts are not seen. Reticulin: No significant increase of reticulin fibers is noted. PAS: Highlights myeloid cells and megakaryocytes. Between February and May of this year he had been drinking heavily. Tequila. Approximately half of fifth a day. Started after a break-up with his girlfriend in February. After his ER visit, he cut down. Still drinks sporadically. Previous therapy: 1) Dexamethasone 40 mg x4 days. 2) IVIG. 3) Rituximab. Current therapy: 1) Prednisone 20 mg daily started 06/11. Started prednisone 06/11 for platelet count of 17,000. Had increased to 89,000-week later but a week after that decline to 28,000. Received IVIG 1 g/day x2 days 06/26 and 06/27. Tolerated well. Presents for ongoing hematologic management. Interim history: He is back in intermediate until mid March. One bruise right side but thinks it is from the bunk he has been sleeping on. No unusual bleeding. PMH, medications and allergies personally reviewed by me today. Any changes documented in appropriate section. PHYSICAL EXAM: Vitals: Blood pressure 130/78, pulse (!) 133, weight 68.7 kg (151 lb 8 oz), SpO2 96%. Well-appearing and in no acute distress. EYES: Sclerae are anicteric bilaterally. ENT: Oral mucosa is unremarkable. There is no sign of oral or gingival bleeding. LYMPHATIC: There is no palpable cervical, supraclavicular, axillary adenopathy. RESPIRATORY: Inspiratory breath sounds are of normal intensity in all hoskins. No rales, wheezes or rhonchi. CARDIOVASCULAR: Rhythm is regular. ABDOMEN: The abdomen is nondistended. No splenomegaly or hepatomegaly. No tenderness. Extremities: No swelling or edema. SKIN: Ecchymosis lateral right chest. LABS: Latest Ref Rng 01/17/2024 02/06/2024 02/14/2024 WBC 3.70 - 11.00 k/uL 8.73 6.46 10.52 RBC 4.20 - 6.00 m/uL 4.21 4.56 5.34 Hemoglobin 13.0 - 17.0 g/dL 12.9 (L) 13.9 16.1 Hematocrit 39.0 - 51.0 % 39.0 41.1 45.6 MCV 80.0 - 100.0 fL 92.6 90.1 85.4 MCH 26.0 - 34.0 pg 30.6 30.5 30.1 MCHC 30.5 - 36.0 g/dL 33.1 33.8 35.3 RDW-CV 11.5 - 15.0 % 12.8 12.2 12.1 Platelet Count 150 - 400 k/uL 249 163 297 MPV 9.0 - 12.7 fL 10.0 10.7 10.4 Neut% % 71.5 45.6 65.5 Abs Neut (ANC) 1.45 - 7.50 k/uL 6.24 2.95 6.90 Lymph% % 23.4 44.6 26.7 Abs Lymph 1.00 - 4.00 k/uL 2.04 2.88 2.81 [place]% % 4.2 8.2 6.4 Abs [place] <0.87 k/uL 0.37 0.53 0.67 Eosin% % 0.2 0.9 0.7 Abs Eosin <0.46 k/uL <0.03 0.06 0.07 Baso% % 0.2 0.5 0.4 Abs Baso <0.11 k/uL <0.03 0.03 0.04 Immature Gran % % 0.5 0.2 0.3 IMMATURE GRANS (ABS) <0.10 k/uL 0.04 <0.03 0.03 NRBC /100 WBC 0.0 0.0 0.0 Absolute nRBC <0.01 k/uL <0.01 <0.01 <0.01 DTYPE Auto Auto Auto PATHOLOGY: Bone marrow biopsy 11/04/2023: A-C. Bone marrow, aspirate smear, touch imprint and core biopsy, with clot section: - Cellular bone marrow (~70%) with trilineage hematopoiesis and mild megakaryocytic hyperplasia. - Stainable iron is increased. - See comment. D. Peripheral blood smear: - Thrombocytopenia. - Mild absolute lymphocytosis without leukocytosis. 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 Prior bone marrow biopsy performed outside was reported to show small and hypolobated megakaryocytes. Bone marrow evaluation performed to assess this finding. Morphologic review demonstrates a relatively normocellular bone marrow (approximately 70%) showing maturing trilineage hematopoiesis with mild megakaryocytic hyperplasia, including small and hypolobated forms and immature megakaryocytes. Flow cytometric immunophenotypic studies do not show evidence of a lymphoproliferative disorder or increased CD34 positive blast population ([id number]). While these morphologic findings could be seen with ITP, the possibility of involvement by a low-grade myeloid neoplasm or other genetic causes of thrombocytopenia cannot be entirely excluded. Correlation with the clinical and other relevant laboratory findings, including the results of the pending molecular myeloid NGS cytogenetic studies is recommended. DIAGNOSIS: 46,XY[20] Flow bone marrow: Interpretation There is no immunophenotypic evidence of involvement by a lymphoproliferative disorder or abnormal blast population. Correlation with the clinical and bone marrow histopathologic findings is suggested. ASSESSMENT/PLAN: (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 -Platelet count responded very well to pulse dose dexamethasone. -Bone marrow was normocellular with no evidence of acute leukemia but he was found to have hypolobated and micromegakaryocytes. -Mild splenomegaly on ultrasound. Could not appreciate on exam. -The ITP had been slow to respond to higher dose prednisone. -Brisk response to IVIG. -Reviewed the results of the second bone marrow biopsy. Consistent with first. -Chronic myeloid neoplasm NGS panel negative. -I did not advise splenectomy because of his social circumstances and issues with travel to main campus and the longer-term immunosuppressive effect. -Good response to rituximab. Plan: -Decrease prednisone to 10 mg daily. -Rituximab on Saturday. -Hold off on Promacta. -Recheck CBC in March when here for next dose of rituximab. -Sooner if starts to have unusual bleeding or excessive/unexplained bruising. 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 Thrombin time was normal. -Fibrinogen antigen and activity both normal. Plan: -No indication to monitor unless recurrent bruising and/or bleeding occurs. Portions of this documentation were copied and pasted from previous office visit notes in order to provide a cohesive continuity of the history. The note has been reviewed and edited and updated as necessary. Killian Elam DO documented in this encounter [facility] 02-13-2024 Telephone encounter Note I printed the prescription. We will fax it to cover my meds. Killian Elam DO [facility] 02-13-2024 Miscellaneous Notes I printed the prescription. We will fax it to cover my meds. Killian Elam DO Patient assistance pharmacy is requesting a copy of promacta prescription. Lisa Price PharmD Clinical Pharmacist, Oncology [facility] P: , F Pool: P [facility] Pool #: [id number] documented in this encounter [facility] 02-13-2024 Telephone encounter Note Patient assistance pharmacy is requesting a copy of promacta prescription. Lisa Price PharmD Clinical Pharmacist, Oncology [facility] P: , F Pool: P [facility] Pool #: [id number] [facility] 02-10-2024 Telephone encounter Note Received a call from Alison from [facility]. Patient is in intermediate. She wanted clarification on patient's prednisone. Currently patient is to be taking prednisone 20 mg daily. I also gave Alison a list of patient's upcoming appointment dates and times. Alison was unsure how long patient would be in but did confirm upcoming appointments. Alison- [facility]- [phone]. Katherine Walsh LPN [facility] 02-10-2024 Miscellaneous Notes Received a call from Alison from [facility]. Patient is in intermediate. She wanted clarification on patient's prednisone. Currently patient is to be taking prednisone 20 mg daily. I also gave Alison a list of patient's upcoming appointment dates and times. Alison was unsure how long patient would be in but did confirm upcoming appointments. Alison- [facility]- [phone]. Katherine Walsh LPN documented in this encounter [facility] 01-30-2024 Miscellaneous Notes Spoke with patient and scheduled. Amanda Hercules Patient to decrease prednisone to 20 mg daily. Patient aware. PSS- patient needs to be scheduled for a weekly CBC. Please contact patient to schedule. Katherine Walsh LPN documented in this encounter [facility] 01-27-2024 Miscellaneous Notes [employer] patient assistance paperwork prepped and ready for pt signature in SW office. Please let him know to stop here with me when scheduled. Thank you, BARBI Shields Left message for patient to return call. When he calls, please schedule labs s directed below and have him stop to see Stanley re: medication assistance as listed below. Amanda Hercules Discussed with Dr Elam: He would like Zane to have repeat labs drawn in 1 week so that we can try to continue to decrease prednisone. If labs remain stable with next draw can decrease to 20mg. Also will need to fill out financial paperwork for rachel while he is here. PSRs: Can you please make sure he is scheduled for labs in about 1 week from today? Thank you! Gracie Norris APRN.[employer] ATTENDANT documented in this encounter [facility] 01-17-2024 History of Present illness Narrative Problems: 1) ITP. 2) Hypofibrinogenemia--resolved. 3) Loss of appetite. HPI: The patient is an otherwise healthy 23-year-old male whom I saw in consultation at the [facility] ED 05/22/2023 for severe thrombocytopenia and bruising. Per my HPI there: The patient is a 23-year-old male with an unremarkable past medical history. He presented to the ED earlier this afternoon with complaints of bruising. Symptoms have been going on about a month. He was afebrile on presentation. He said for the last month whenever he gets up in the morning he feels exhausted and has all over body aches. Often has to soak in a hot tub to start feeling better. He has been noticing unprovoked bruises all over for the last month. He has not had petechiae. Occasional gum bleeding when he brushes his teeth. No epistaxis or rectal bleeding. He has not had fevers or drenching night sweats. His appetite has been poor and he has lost about 10 to 15 pounds. He endorses that if he lies on his stomach, he develops abdominal pain. He has developed reflux symptoms in the last few days. No nausea or vomiting. He has not had black or bloody stools. Pertinent lab findings were initial platelet count 26,000. Remainder of CBC was normal. No schistocytes observed. Coagulation times normal. Fibrinogen low. D-dimer was normal. Thrombin time was normal. He was started on pulse dose dexamethasone 40 mg daily which she received on Saturday, , Saturday and Saturday of last week. Hospital day 3 platelets had increased to 48,000. 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 COMMENT Flow cytometry, FISH and cytogenetic studies are pending. Clinical correlation and appropriate follow up are necessary. Case has been reviewed in consultation with Dr. Hernandes who concurs with the above diagnosis. BONE MARROW STUDY Slides are reviewed. CBC DATE: 05/23/23 WBC 8.18; RBC 4.99; HGB 15.5; HCT 45.3; MCV 98.8; RDW 12.8; PLTS 48,000 SEGS 80.9%; LYMPHS 14.5%; MONOS 3.9%; EOS 0.0%; BASOS 0.1%; Immature granulocytes 0.6% PERIPHERAL SMEAR: Submitted. RBC: Normocytic and normochromic. WBC: Unremarkable. The WBC count is compatible to as reported above. PLTS: Markedly decreased. BONE MARROW ASPIRATE DIFFERENTIAL: 200 cell count. Blasts % (normal 0-2): 0 Promyelocytes % (normal 1-5): 2 Myelocytes and metamyelocytes % (normal 17-41): 24 Bands and Segs % (normal 15-32): 35 Eos % (normal 1-6): 3 Basos % (normal 0-1): 0 Monocytes % (normal 0-4): 2 Erythroid Precursors % (normal 17-35): 22 Lymphocytes % (normal 7-13): 12 Plasma Cells % (normal 0-2): 0 ASPIRATE FINDINGS: Site: Not specified Spicular, Cellular M/E ratio: 2.9 (Normal 1.5-4.0) Megakaryocytes: Present. Hypolobated and micromegakaryocytes are noted. Erythropoiesis: Normoblastic. Granulopoiesis: Progressive and unremarkable. Comment: Megakaryocytic dysplasia is noted. CORE BIOPSY FINDINGS: Site: Not specified Adequacy: Limited Comment: The specimen predominantly consists of peripheral blood mixed with a few hematopoietic cells consisting of erythroid, myeloid and megakaryocytes. ASPIRATE CLOT FINDINGS: Site: Not specified Marrow particles: Numerous Cellularity: 50% M/E ratio: Within normal limits. Megakaryocytes: Present and increased in number. Granulomas: Absent. Lymphoid aggregates: Absent. Atypical infiltrates: Absent. SPECIAL STAINS WITH MATCHED CONTROLS: Iron: 1+, atypical or ring sideroblasts are not seen. Reticulin: No significant increase of reticulin fibers is noted. PAS: Highlights myeloid cells and megakaryocytes. Between February and May of this year he had been drinking heavily. Tequila. Approximately half of fifth a day. Started after a break-up with his girlfriend in February. After his ER visit, he cut down. Still drinks sporadically. Previous therapy: 1) Dexamethasone 40 mg x4 days. 2) IVIG. Current therapy: 1) Prednisone 60 mg daily started 06/11. - current taper 40 Started prednisone 06/11 for platelet count of 17,000. Had increased to 89,000-week later but a week after that decline to 28,000. Received IVIG 1 g/day x2 days 06/26 and 06/27. Tolerated well. Presents for ongoing hematologic management. Interim history: Zane presents today for lab review and follow up. He reports feeling generally well. No new issues. No bleeding. Overall tolerating prednisone well, some GI upset. Nauseated at times with pred zofran helps. Appetite is good. Gaining weight. Headaches at times. Has not received promacta. About 2 weeks left of pred. Discussed taper to 30mg today. PMH, medications and allergies personally reviewed by me today. Any changes documented in appropriate section. PHYSICAL EXAM: Vitals: Blood pressure 113/58, pulse 72, temperature 36.9 C (98.5 F), weight 77.8 kg (171 lb 8 oz), SpO2 98%. Well-appearing and in no acute distress. EYES: Sclerae are anicteric bilaterally. ENT: Oral mucosa is unremarkable. There is no sign of oral or gingival bleeding. LYMPHATIC: There is no palpable cervical, supraclavicular, axillary adenopathy. RESPIRATORY: Inspiratory breath sounds are of normal intensity in all hoskins. No rales, wheezes or rhonchi. Expiratory phase is normal. CARDIOVASCULAR: Rhythm is regular. ABDOMEN: The abdomen is nondistended. No splenomegaly or hepatomegaly. No tenderness. Extremities: No swelling or edema. SKIN: No Ecchymosis I have performed the physical exam today (01/17/2024) and have edited the note to correlate with current findings. LABS: Component Latest Ref Rng & Units 11/18/2023 WBC 3.70 - 11.00 k/uL 18.03 (H) RBC 4.20 - 6.00 m/uL 5.21 Hemoglobin 13.0 - 17.0 g/dL 16.1 Hematocrit 39.0 - 51.0 % 46.6 MCV 80.0 - 100.0 fL 89.4 MCH 26.0 - 34.0 pg 30.9 MCHC 30.5 - 36.0 g/dL 34.5 RDW-CV 11.5 - 15.0 % 11.7 Platelet Count 150 - 400 k/uL 91 (L) MPV 9.0 - 12.7 fL 11.9 Neut% % 88.6 Abs Neut (ANC) 1.45 - 7.50 k/uL 15.96 (H) Lymph% % 9.1 Abs Lymph 1.00 - 4.00 k/uL 1.64 [place]% % 1.2 Abs [place] <0.87 k/uL 0.22 Eosin% % 0.1 Abs Eosin <0.46 k/uL <0.03 Baso% % 0.2 Abs Baso <0.11 k/uL 0.04 Immature Gran % % 0.8 IMMATURE GRANS (ABS) <0.10 k/uL 0.15 (H) NRBC /100 WBC 0.0 Absolute nRBC <0.01 k/uL <0.01 DTYPE Auto PATHOLOGY: Bone marrow biopsy 11/04/2023: A-C. Bone marrow, aspirate smear, touch imprint and core biopsy, with clot section: - Cellular bone marrow (~70%) with trilineage hematopoiesis and mild megakaryocytic hyperplasia. - Stainable iron is increased. - See comment. D. Peripheral blood smear: - Thrombocytopenia. - Mild absolute lymphocytosis without leukocytosis. 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 Prior bone marrow biopsy performed outside was reported to show small and hypolobated megakaryocytes. Bone marrow evaluation performed to assess this finding. Morphologic review demonstrates a relatively normocellular bone marrow (approximately 70%) showing maturing trilineage hematopoiesis with mild megakaryocytic hyperplasia, including small and hypolobated forms and immature megakaryocytes. Flow cytometric immunophenotypic studies do not show evidence of a lymphoproliferative disorder or increased CD34 positive blast population ([id number]). While these morphologic findings could be seen with ITP, the possibility of involvement by a low-grade myeloid neoplasm or other genetic causes of thrombocytopenia cannot be entirely excluded. Correlation with the clinical and other relevant laboratory findings, including the results of the pending molecular myeloid NGS cytogenetic studies is recommended. DIAGNOSIS: 46,XY[20] Flow bone marrow: Interpretation There is no immunophenotypic evidence of involvement by a lymphoproliferative disorder or abnormal blast population. Correlation with the clinical and bone marrow histopathologic findings is suggested. ASSESSMENT/PLAN: (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 -Platelet count responded very well to pulse dose dexamethasone. -Bone marrow was normocellular with no evidence of acute leukemia but he was found to have hypolobated and micromegakaryocytes. -Mild splenomegaly on ultrasound. Still cannot appreciate on exam. -The ITP has been slow to respond to higher dose prednisone. -Brisk response to IVIG. -Reviewed the results of the second bone marrow biopsy. Myeloid NGS panel pending. -Platelet count improved on current dose of prednisone but rapidly falls off when trying to taper. I did not advise splenectomy at this point particularly because of his social circumstances and issues with travel to [facility] and the longer-term immunosuppressive effect. I advised rituximab. -I discussed the rationale, logistics, potential risks (including but not limited to immunosuppression/infection, hepatitis B reactivation, renal toxicity, progressive multifocal leukoencephalopathy and the small potential for as a consequence of severe toxicity/complications of therapy), benefits and alternatives, as well as the personnel involved in the administration of rituximab. I answered his questions in detail and he verbalized understanding and agreed with the recommended therapy. Please see the electronic consent document for details of doses and schedule. -Addendum: Chronic myeloid neoplasm NGS panel negative. Plan: -Decrease prednisone 30 mg daily. -Begin rituximab later this week or next week. - ? add antiemetic to rituxan. Nausea immediately after infusion lasts about 1 week. -CBC with each treatment. -Will continue tapering prednisone pending response to rituximab. -Follow-up with NGS panel. 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 Thrombin time was normal. -Fibrinogen antigen and activity both normal. Plan: -No indication to monitor unless recurrent bruising and/or bleeding occurs. - RTC for next infusion Gracie Norris APRN.VALET ATTENDANT I spent a total of 35 minutes on the date of the service which included preparing to see the patient, [id number] patient care, completing clinical documentation, counseling and educating the patient/family/caregiver, and communicating results to the patient/family/caregiver. Portions of this note including HPI, ROS, impression/plan may have been copied forward as to provide important historical information essential in contributing to medical decision making. Documentation has been reviewed and edited as necessary to support clinical decision making for today's visit and to reflect my own independent evaluation of this patient. documented in this encounter [facility] 12-26-2023 Miscellaneous Notes Patient added on. Kari Magaña Please add pt to tomorrow's schedule (12/27/23) and pt is a 2-day IVIG. Thank you. No later than 11. documented in this encounter [facility] 12-23-2023 Miscellaneous Notes Patient added on as directed. Kari Magaña Noted. Thank you. Killian Elam DO Dr. Elam- patient states he was taking 20 mg of prednisone daily and then he saw that his platelet count dropped so he started taking 40 mg daily again. PSS- please schedule patient for a CBC 12/26/2023 @ 11:00 and then IVIG at 11:30. Patient is aware of appointment date and times. Katherine Walsh LPN Attempted to contact patient- call went straight to , left message asking patient to contact the office. Attempted to contact patient's mother- not set up. Katherine Walsh LPN Rituximab just for 4 weeks then 1 maintenance dose every 2 months. Has he continued to take prednisone? He is going to need eltrombopag. I'll get Rx off to specialty pharmacy. Recheck CBC this and allow time for IVIG administration. Killian Elam DO Patient and patient's mother stopped out after treatment today. Patient was thinking that he was supposed to have weekly Rituximab for 7 weeks. I didn't see that in his orders, but he is also scheduled for monthly Rituximab at the beginning of January. Patient concerned because he said My platelets are dropping a lot Please advise how we are to schedule this patient. Kari Magaña documented in this encounter [facility] 12-10-2023 Miscellaneous Notes Markel Quigley documented in this encounter [facility] 12-10-2023 Miscellaneous Notes Killian Elam DO 12/09/2023 9:24 AM EST Back to Top Seen chairside. Muscle symptoms better. On pred 40 a day. Advised him to decrease to 20 mg daily. Will get rituximab today. documented in this encounter [facility] 12-06-2023 Discharge summary Note Date/Time December 06, 2023 11:37am [facility] Medical Records Department [address] [place] [address] Emergency Department Summary 12/06/23 MR#: [id number] Acct: [id number] Name: ZANE BUITRAGO Rep #:[id number] 2 : 2000 23 From: Harvey Singh MD PCP: Care Physician,No Primary Status :REG ER Location: ED HPI <JAY Sal - Last Filed: 12/06/23 15:47> History of Present Illness Chief Complaint: General Illness Narrative Narrative: Patient presenting today with his mother due to generalized muscle pain that he has had for the past 3 to 4 days that acutely worsened last night. 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 Elam for this. He has received 2 rounds of chemotherapy, last round was 1 week ago. He was supposed to have chemotherapy today but was in too much pain and was told to come to the ED for evaluation. He reports that it feels like, my muscles are ripping. He denies any fevers, chills, shortness of breath, nausea, and vomiting. PFSH <JAY Sal - Last Filed: 12/06/23 15:47> PFSH Medical History Cannabis use disorder Ecchymoses, spontaneous Hypofibrinogenemia Severe thrombocytopenia Home Medications oxycodone-acetaminophen 5 mg-325 mg tablet (Percocet) 1 tab PO Q8H PRN pain 3 days #10 tabs 12/06/23 [Rx Last Taken Unknown] Allergy/AdvReac Type Severity Reaction Status Date / Time No Known Allergies Allergy Verified 12/06/23 10:47 Family History Mother No problems noted. Father No problems noted. Brother Leukemia in remission Surgical History No history of previous surgery Social History household members: none Smoking Status: Never smoker alcohol intake: never substance use type: marijuana ROS <JAY Sal - Last Filed: 12/06/23 15:47> ROS ED Constitutional Constitutional ED: Denies chills or fever(s) Cardiovascular Cardiovascular: Denies chest pain or palpitations Respiratory/Chest Respiratory/Chest: Denies cough or dyspnea Gastrointestinal Gastrointestinal: Denies abdominal pain, nausea or vomiting Musculoskeletal Musculoskeletal: Reports arthralgias, back pain and myalgias Integumentary Denies rash Neurologic Neurologic: Reports weakness; Denies paresthesias EXAM <JAY Sal - Last Filed: 12/06/23 15:47> Physical Exam Const Vital Signs: 12/06/23 09:26 12/06/23 10:43 12/06/23 15:00 Temperature 98.4 F 99.3 F H Temperature Source Temporal Temporal Pulse Rate 97 Respiratory Rate 18 Respiratory Effort Normal Respiratory Pattern Normal Blood Pressure 131/79 H Blood Pressure Mean 96 Pulse Ox 100 Oxygen Delivery Method Room Air Positive well nourished, well developed and no apparent distress General Appearance ED: well developed HEENT Reports normocephalic and head/scalp atraumatic Mouth ED: Yes moist mucous membranes normal Eyes PERRL and EOMs intact bilaterally Neck full ROM and supple Chest Wall inspection of chest normal Resp normal respiratory effort and clear to auscultation bilaterally Cardio regular rate and regular rhythm GI soft to palpation, non-tender, non-distended and no masses Back/Spine normal ROM and normal to inspection Extremity normal to inspection and full ROM Neuro oriented x3, CN's II-XII intact bilaterally, moves all extremities, no focal motor deficits and no sensory deficits noted Sensorium / Orientation: awake and alert Psych mental status grossly normal and thought process normal Skin no rashes or lesions noted and no wounds <Dr. Harvey Singh MD - Last Filed: 12/06/23 15:36> Physical Exam Const Vital Signs: 12/06/23 09:26 12/06/23 10:43 12/06/23 15:00 Temperature 98.4 F 99.3 F H Temperature Source Temporal Temporal Pulse Rate 97 Respiratory Rate 18 Respiratory Effort Normal Respiratory Pattern Normal Blood Pressure 131/79 H Blood Pressure Mean 96 Pulse Ox 100 Oxygen Delivery Method Room Air MDM <JAY Sal - Last Filed: 12/06/23 15:47> MDM MDM Narrative Medical decision making narrative: Patient presenting due to generalized muscle aches that have been going on for the past 3 to 4 days but worsened last night. He does appear to be uncomfortable. Vitals are unremarkable. Labs will be obtained and he will be given IV morphine and Zofran. Temperature was taken and was 100.4 ?F. COVID, influenza, RSV swab obtained as well as chest x-ray. Workup is unremarkable. Platelets are low chronically. He was given Tylenol for the fever and additional IV morphine. On reexamination he reports improvement of his symptoms. The attending did speak with Dr. Elam who thinks that this is eitherviral syndrome or serum sickness. He does have a prescription at home for prednisone that he is to take and I will give him pain medication for home. Return instructions discussed. He will be discharged home in stable condition and is comfortable with plan. I have personally performed a face to face assessment of the patient and have reviewed the BREANN Note. I performed a substantive portion of the visit including all aspects of the following. My lovell findings include: History is 23-year-old male on chemotherapy for ITP. Has been for the last 2 weeks. In the last 2 days he just has not felt well has had diffuse body aches both myalgias and arthralgias. Really no other symptoms. Denies fever. Deniesvomiting or diarrhea. No dysuria. No rashes. No headache. Exam is [well-appearing 21-year-old male. Vital signs initially were stable and afebrile. On my exam he felt warm I did a repeat oral temperature was 100.4. HEENT exam unremarkable. Posterior pharynx unremarkable. No erythema or exudate. Neck nontender. No meningismus. No lymphadenopathy. Lungs clear to auscultation bilaterally. Heart regular rhythm rate about 100 no murmur. Chest wall and ribs nontender. Abdomen soft nontender. Back nontender. Skin no rashes. No petechiae appropriate. Moving all 4 extremities. Nontender. No edema or cords. Normal range of motion. Neurologically is awake alert no focal motor deficits.] Medical Decision Making [23-year-old undergoing chemotherapy for ITP with a temperature 100.4. Screening labs and initially are negative. With a normal white count of 6. He has chronically low platelets at 82. His H&H are 13 and 39. His electrolytes and kidney function are unremarkable.] Other additions or changes: [Repeat exam at 3:30 patient doing much better. He received some morphine for pain. He received Tylenol for his fever. His workup including blood work and viral studies and strep are all negative. Including his chest x-ray. I spoke to his oncologist Dr. Killian Elam. This may be a viral syndrome. It could be serum sickness. He has prednisone at home which she sometimes forgets to take. He will resume his prednisone he has appointment to see Dr. Killian Elam next week. I discussed all this with the patient and his mom.] Lab Data Labs: Laboratory Results - last 24 hr 12/06/23 10:36 WBC 6.4 RBC 4.51 L Hgb 13.8 Hct 39.7 L MCV 88.0 MCH 30.6 MCHC 34.8 RDW Std Deviation 37.5 RDW Coeff of Nba 11.7 Plt Count 82 L MPV 10.8 Immature Gran % (Auto) 0.600 Neut % (Auto) 73.6 H Lymph % (Auto) 13.6 L [place] % (Auto) 11.6 H Eos % (Auto) 0.3 Baso % (Auto) 0.3 Absolute Neuts (auto) 4.7 Absolute Lymphs (auto) 0.87 Nucleated RBC % 0 Sodium 138 Potassium 3.9 Chloride 104 Carbon Dioxide 25.0 Anion Gap 9 BUN 15 Creatinine 0.98 Estim Creat Clear Calc 118.23 Est GFR (MDRD) Af Amer 123 Est GFR (MDRD) Non-Af 101 BUN/Creatinine Ratio 15.4 Glucose 133 H Calcium 9.3 Radiography Diagnostic Testing: Clinical Impression(s) from Imaging Studies Chest X-Ray 12/06/23 13:49 IMPRESSION: Normal x-ray examination of the chest. Electronically Signed: Houston Larios MD at 14:05 EST , <Dr. Harvey Singh MD - Last Filed: 12/06/23 15:36> [facility] Narrative Medical decision making narrative: Patient presenting due to generalized muscle aches that have been going on for the past 3 to 4 days but worsened last night. He does appear to be uncomfortable. Vitals are unremarkable. Labs will be obtained and he will be given IV morphine and Zofran. I have personally performed a face to face assessment of the patient and have reviewed the BREANN Note. I performed a substantive portion of the visit including all aspects of the following. My lovell findings include: History is 23-year-old male on chemotherapy for ITP. Has been for the last 2 weeks. In the last 2 days he just has not felt well has had diffuse body aches both myalgias and arthralgias. Really no other symptoms. Denies fever. Deniesvomiting or diarrhea. No dysuria. No rashes. No headache. Exam is [well-appearing 21-year-old male. Vital signs initially were stable and afebrile. On my exam he felt warm I did a repeat oral temperature was 100.4. HEENT exam unremarkable. Posterior pharynx unremarkable. No erythema or exudate. Neck nontender. No meningismus. No lymphadenopathy. Lungs clear to auscultation bilaterally. Heart regular rhythm rate about 100 no murmur. Chest wall and ribs nontender. Abdomen soft nontender. Back nontender. Skin no rashes. No petechiae appropriate. Moving all 4 extremities. Nontender. No edema or cords. Normal range of motion. Neurologically is awake alert no focal motor deficits.] Medical Decision Making [23-year-old undergoing chemotherapy for ITP with a temperature 100.4. Screening labs and initially are negative. With a normal white count of 6. He has chronically low platelets at 82. His H&H are 13 and 39. His electrolytes and kidney function are unremarkable.] Other additions or changes: [Repeat exam at 3:30 patient doing much better. He received some morphine for pain. He received Tylenol for his fever. His workup including blood work and viral studies and strep are all negative. Including his chest x-ray. I spoke to his oncologist Dr. Killian Elam. This may be a viral syndrome. It could be serum sickness. He has prednisone at home which she sometimes forgets to take. He will resume his prednisone he has appointment to see Dr. Killian Elam next week. I discussed all this with the patient and his mom.] History & Record Review Discussion w/independent historian: Patient and Family Additional record(s) reviewed:: Prior inpatient record, Prior outpatient record,Prior ED visit and Prior labs Lab Data Attestation: I reviewed the patient's lab results. Lab results narrative: CBC normal white count of 6 H&H of 13 and 39. Platelets are low at 82,000 whichis his baseline. Electrolytes unremarkable. Normal BUN and creatinine. Rapid strep negative. Chest x-ray normal. No signs of pneumonia. Labs: Laboratory Results - last 24 hr 12/06/23 10:36 WBC 6.4 RBC 4.51 L Hgb 13.8 Hct 39.7 L MCV 88.0 MCH 30.6 MCHC 34.8 RDW Std Deviation 37.5 RDW Coeff of Nba 11.7 Plt Count 82 L MPV 10.8 Immature Gran % (Auto) 0.600 Neut % (Auto) 73.6 H Lymph % (Auto) 13.6 L [place] % (Auto) 11.6 H Eos % (Auto) 0.3 Baso % (Auto) 0.3 Absolute Neuts (auto) 4.7 Absolute Lymphs (auto) 0.87 Nucleated RBC % 0 Sodium 138 Potassium 3.9 Chloride 104 Carbon Dioxide 25.0 Anion Gap 9 BUN 15 Creatinine 0.98 Estim Creat Clear Calc 118.23 Est GFR (MDRD) Af Amer 123 Est GFR (MDRD) Non-Af 101 BUN/Creatinine Ratio 15.4 Glucose 133 H Calcium 9.3 Radiography Chest X-Ray - ED: 1 View, Read by ED Physician, Read by Radiologist, Heart, Lungs, Mediastinum, Bony Structures and No Acute Disease Diagnostic Testing: Clinical Impression(s) from Imaging Studies Chest X-Ray 12/06/23 13:49 IMPRESSION: Normal x-ray examination of the chest. Electronically Signed: Houston Larios MD at 14:05 EST , Chest x-ray, portable, single view interpreted by myself and the radiologist shows no acute abnormality. Normal cardiac silhouette. Normal lung hoskins. Nopneumonia. Discharge Plan Triage Chief Complaint: General Illness ED Midlevel Provider: Shantel Piper ED Provider: Harvey Singh Dx/Rx/DC Orders Clinical Impression: Serum sickness, Fever, Viral illness, History of ITP Instructions: ED Viral Syndrome (Adult) Prescriptions: New oxycodone-acetaminophen [Percocet] 5-325 mg tablet 1 tab PO Q8H PRN (Reason: pain) 3 Days Qty: 10 0RF Primary Care Provider: Care Physician,No Primary Referrals: Care Physician,No Primary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 Plasma Cells % (normal 0-2): 0 ASPIRATE FINDINGS: Site: Not specified Spicular, Cellular M/E ratio: 2.9 (Normal 1.5-4.0) Megakaryocytes: Present. Hypolobated and micromegakaryocytes are noted. Erythropoiesis: Normoblastic. Granulopoiesis: Progressive and unremarkable. Comment: Megakaryocytic dysplasia is noted. CORE BIOPSY FINDINGS: Site: Not specified Adequacy: Limited Comment: The specimen predominantly consists of peripheral blood mixed with a few hematopoietic cells consisting of erythroid, myeloid and megakaryocytes. ASPIRATE CLOT FINDINGS: Site: Not specified Marrow particles: Numerous Cellularity: 50% M/E ratio: Within normal limits. Megakaryocytes: Present and increased in number. Granulomas: Absent. Lymphoid aggregates: Absent. Atypical infiltrates: Absent. SPECIAL STAINS WITH MATCHED CONTROLS: Iron: 1+, atypical or ring sideroblasts are not seen. Reticulin: No significant increase of reticulin fibers is noted. PAS: Highlights myeloid cells and megakaryocytes Previous therapy: 1) Dexamethasone 40 mg x4 days. 2) IVIG. Current therapy: 1) Prednisone 60 mg daily started 06/11. Started prednisone 06/11 for platelet count of 17,000. Had increased to 89,000-week later but a week after that decline to 28,000. Received IVIG 1 g/day x2 days 06/26 and 06/27. Tolerated well. Presents for ongoing hematologic management. Interim history: Several no shows. Lost prednisone for a week while moving. Fell from skateboard--Bruised left elbow. Spilled hot grease on right foot. No bleeding. Several small erickson. Has not had this evaluated. He endorsed today that between February and May of this year he had been drinking heavily. Tequila. Approximately half of fifth a day. Started after a break-up with his girlfriend in February. After his ER visit, he cut down. Still drinks sporadically. PMH, medications and allergies personally reviewed by me today. Any changes documented in appropriate section. PHYSICAL EXAM: Vitals: Blood pressure 128/68, pulse 61, temperature 36.5 C (97.7 F), temperature source Temporal, weight 77.8 kg (171 lb 8 oz), SpO2 99%. Well-appearing and in no acute distress. EYES: Sclerae are anicteric bilaterally. ENT: Oral mucosa is unremarkable. There is no sign of oral or gingival bleeding. LYMPHATIC: There is no palpable cervical, supraclavicular, axillary adenopathy. RESPIRATORY: Inspiratory breath sounds are of normal intensity in all hoskins. No rales, wheezes or rhonchi. Expiratory phase is normal. CARDIOVASCULAR: Rhythm is regular. ABDOMEN: The abdomen is nondistended. No splenomegaly or hepatomegaly. No tenderness. Extremities: No swelling or edema. SKIN: Ecchymosis with abrasion over left elbow. He has 5 small discrete healing blisters right foot. LABS: Component Latest Ref Rng & Units 09/06/2023 09/13/2023 09/20/2023 10/02/2023 WBC 3.70 - 11.00 k/uL 9.98 9.83 10.70 10.17 RBC 4.20 - 6.00 m/uL 5.20 5.07 5.01 4.63 Hemoglobin 13.0 - 17.0 g/dL 16.3 15.8 15.6 14.6 Hematocrit 39.0 - 51.0 % 46.9 46.3 45.2 43.2 MCV 80.0 - 100.0 fL 90.2 91.3 90.2 93.3 MCH 26.0 - 34.0 pg 31.3 31.2 31.1 31.5 MCHC 30.5 - 36.0 g/dL 34.8 34.1 34.5 33.8 RDW-CV 11.5 - 15.0 % 12.1 12.0 11.9 11.9 Platelet Count 150 - 400 k/uL 30 (L) 50 (L) 35 (L) 60 (L) MPV 9.0 - 12.7 fL 12.3 12.3 12.9 (H) 11.6 Neut% % 82.6 85.0 78.4 61.7 Abs Neut (ANC) 1.45 - 7.50 k/uL 8.24 (H) 8.35 (H) 8.39 (H) 6.27 Lymph% % 13.8 12.5 17.0 32.9 Abs Lymph 1.00 - 4.00 k/uL 1.38 1.23 1.82 3.35 [place]% % 2.8 1.8 3.7 4.0 Abs [place] <0.87 k/uL 0.28 0.18 0.40 0.41 Eosin% % 0.0 0.0 0.1 0.2 Abs Eosin <0.46 k/uL <0.03 <0.03 <0.03 <0.03 Baso% % 0.2 0.2 0.2 0.3 Abs Baso <0.11 k/uL <0.03 <0.03 <0.03 0.03 Immature Gran % % 0.6 0.5 0.6 0.9 IMMATURE GRANS (ABS) <0.10 k/uL 0.06 0.05 0.06 0.09 NRBC /100 WBC 0.0 0.0 0.0 0.0 Absolute nRBC <0.01 k/uL <0.01 <0.01 <0.01 <0.01 DTYPE Auto Auto Auto Auto ASSESSMENT/PLAN: (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 -Platelet count responded very well to pulse dose dexamethasone. -Bone marrow was normocellular with no evidence of acute leukemia but he was found to have hypolobated and micromegakaryocytes. -Mild splenomegaly on ultrasound. Still cannot appreciate on exam. -Discussed importance of medical adherence and abstinence from alcohol as heavy alcohol use likely caused bone marrow morphologic changes of megakaryocytes. -Reviewed CBC. Slow response to prednisone. Discussed previous bone marrow biopsy findings. Needs repeat bone marrow biopsy. To reassess the previous finding of small and hypolobated megakaryocytes. Consented. Plan: -Decrease prednisone to 30 mg daily. -Recheck CBC in 2 weeks. -Rx for Percocet and Ativan sent to drug [place]. -Possible IVIG. -Consider rituximab for if needed. 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 Thrombin time was normal. -Now fibrinogen antigen and activity both normal. Plan: -Monitor. Portions of this documentation were copied and pasted from previous office visit notes in order to provide a cohesive continuity of the history. The note has been reviewed and edited and updated as necessary. Killian Elam DO documented in this encounterHol[facility]12-15-2023 Miscellaneous Notes* Telephone Encounter - Mary Mendes - 09/27/2023 2:36 PM EST Labs scheduled as requested. * Telephone Encounter - Bernadette Barron LPN - 09/27/2023 2:15 PM EST Set up for 2 consecutive days of IVIG either this week or next week pending availability. Repeat CBC day 1 of IVIG. Repeat CBC 1 week after IVIG. Discuss F/U at 10/02 apt. Bernadette Barron LPN * Telephone Encounter - Mary Mendes - 09/27/2023 2:07 PM EST Scheduled D1 IVIG with patient. Patient states will get remaining schedule when in for that appt. Patient is 100% financially cleared. Rituxan scheduled. Please advise on lab and office visits. Start email sent * Telephone Encounter - Amanda Hercules - 09/25/2023 9:40 AM EST 2nd attempt via phone - LM for patient to return call. When he calls, please advise below and scheduled accordingly (labs, IVIG & Rituximab). Amanda Hercules * Telephone Encounter - Katherine Walsh LPN - 09/24/2023 1:48 PM EST Left message on VM asking that he contact the office for all information. I will also send a MyChart message. Katherine Walsh LPN * Telephone Encounter - Killian Elam DO - 09/24/2023 1:42 PM EST Advise him to stay on 40 mg a day. Set up for 2 consecutive days of IVIG either this week or next week pending availability. Repeat CBC day 1 of IVIG. Repeat CBC 1 week after IVIG. Also lets go aheadand start the process for prior authorization for rituximab. Orders filed in [employer]. iKllian Elam DO * Telephone Encounter - Katherine Walsh LPN - 09/24/2023 9:55 AM EST Patient returned call and stated he wasn't sure if he missed any doses of prednisone but did see his latest platelet count was lower and he is now making sure he is taking it correctly. He is currently taking prednisone 40 mg daily. Katherine Walsh LPN * Telephone Encounter - Bernadette Barron LPN - 09/24/2023 9:46 AM EST Sent [employer] message requesting pt call office. Bernadette Barron LPN * Telephone Encounter - Katherine Walsh LPN - 09/23/2023 5:05 PM EST Second message left on patient's VM asking him to contact office. Katherine Walsh LPN * Telephone Encounter - Katherine Walsh LPN - 09/23/2023 8:24 AM EST Left message on patient's Vm asking him to contact the office. Katherine Walsh LPN * Telephone Encounter - Katherine Walsh LPN - 09/23/2023 8:24 AM EST ----- Message from Killian Elam DO sent at 09/23/2023 8:12 AM EST ----- Need to find out if he has been missing doses of prednisone. Killian Elam DO documented in this encounterHolzer Hospital11-29-2023 Miscellaneous Notes* Telephone Encounter - Killian Elam DO - 09/11/2023 4:23 PM EST Noted. Thank you. Killian Elam DO * Telephone Encounter - Karol Graf - 09/11/2023 3:54 PM EST Called and spoke with pt. 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 That he is unable to be his PCP Pt stated he was in the middle of something and would call back to schedule Based on the conversation had with pt- call back in unlikely * Telephone Encounter - Karol Graf - 09/06/2023 1:51 PM EST [facility] PCP providers are no longer accepting New Patients. Will attempt to offer patient an OVin [place] or [place] if possible 1st attempt: No Ring No VM Sent MC message * Telephone Encounter - Killian Elam DO - 09/06/2023 1:32 PM EST We need to get him established with a PCP. Thank you. Killian Elam DO * Telephone Encounter - Jenny Hurley LPN - 08/22/2023 4:46 PM EST Pt. Was a no show for appt. And labs scheduled 08/12. Attempted to contact pt. To reschedule, unable to leave message voicemail full. Jenny Hurley LPN documented in this encounterHolzer Hospital11-24-2023 History of Present illness Narrative* Killian Elam DO - 09/06/2023 10:52 AM EST Problems: 1) ITP. 2) Hypofibrinogenemia--resolved. 3) Loss of appetite. HPI: The patient is an otherwise healthy 23-year-old male whom I saw in consultation at the [facility] ED 05/22/2023 for severe thrombocytopenia and bruising. Per my HPI there: The patient is a 23-year-old male with an unremarkable past medical history. He presented to the ED earlier this afternoon with complaints of bruising. Symptoms have been going on about a month. He was afebrile on presentation. He said for the last month whenever he gets up in the morning he feels exhausted and has all over body aches. Often has to soak in a hot tub to start feeling better. He has been noticing unprovoked bruises all over for the last month. He has not had petechiae. Occasional gum bleeding when he brushes his teeth. No epistaxis or rectal bleeding. He has not had fevers or drenching night sweats. His appetite has been poor and he has lost about 10 to 15 pounds. He endorses that if he lies on his stomach, he develops abdominal pain. He has developed reflux symptoms in the last few days. No nausea or vomiting. He has not had black or bloody stools. Pertinent lab findings were initial platelet count 26,000. Remainder of CBC was normal. No schistocytes observed. Coagulation times normal. Fibrinogen low. D- dimer was normal. Thrombin time was normal. He was started on pulse dose dexamethasone 40 mg daily which she received on Saturday, , Saturday and Saturday of last week. Hospital day 3 platelets had increased to 48,000. 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 COMMENT Flow cytometry, FISH and cytogenetic studies are pending. Clinical correlation and appropriate follow up are necessary. Case has been reviewed in consultation with Dr. Hernandes who concurs with the above diagnosis. BONE MARROW STUDY Slides are reviewed. CBC DATE: 05/23/23 WBC 8.18; RBC 4.99; HGB 15.5; HCT 45.3; MCV 98.8; RDW 12.8; PLTS 48,000 SEGS 80.9%; LYMPHS 14.5%; MONOS 3.9%; EOS 0.0%; BASOS 0.1%; Immature granulocytes 0.6% PERIPHERAL SMEAR: Submitted. RBC: Normocytic and normochromic. WBC: Unremarkable. The WBC count is compatible to as reported above. PLTS: Markedly decreased. BONE MARROW ASPIRATE DIFFERENTIAL: 200 cell count. Blasts % (normal 0-2): 0 Promyelocytes % (normal 1-5): 2 Myelocytes and metamyelocytes % (normal 17-41): 24 Bands and Segs % (normal 15-32): 35 Eos % (normal 1-6): 3 Basos % (normal 0-1): 0 Monocytes % (normal 0-4): 2 Erythroid Precursors % (normal 17-35): 22 Lymphocytes % (normal 7-13): 12 Plasma Cells % (normal 0-2): 0 ASPIRATE FINDINGS: Site: Not specified Spicular, Cellular M/E ratio: 2.9 (Normal 1.5-4.0) Megakaryocytes: Present. Hypolobated and micromegakaryocytes are noted. Erythropoiesis: Normoblastic. Granulopoiesis: Progressive and unremarkable. Comment: Megakaryocytic dysplasia is noted. CORE BIOPSY FINDINGS: Site: Not specified Adequacy: Limited Comment: The specimen predominantly consists of peripheral blood mixed with a few hematopoietic cells consisting of erythroid, myeloid and megakaryocytes. ASPIRATE CLOT FINDINGS: Site: Not specified Marrow particles: Numerous Cellularity: 50% M/E ratio: Within normal limits. Megakaryocytes: Present and increased in number. Granulomas: Absent. Lymphoid aggregates: Absent. Atypical infiltrates: Absent. SPECIAL STAINS WITH MATCHED CONTROLS: Iron: 1+, atypical or ring sideroblasts are not seen. Reticulin: No significant increase of reticulin fibers is noted. PAS: Highlights myeloid cells and megakaryocytes Previous therapy: 1) Dexamethasone 40 mg x4 days. 2) IVIG. Current therapy: 1) Prednisone 60 mg daily started 06/11. Started prednisone 06/11 for platelet count of 17,000. Had increased to 89,000-week later but a week after that decline to 28,000. Received IVIG 1 g/day x2 days 06/26 and 06/27. Tolerated well. Presents for ongoing hematologic management. Interim history: Several no shows. Lost prednisone for a week while moving. Fell from skateboard--Bruised left elbow. Spilled hot grease on right foot. No bleeding. Several small erickson. Has not had this evaluated. He endorsed today that between February and May of this year he had been drinking heavily. Tequila. Approximately half of fifth a day. Started after a break-up with his girlfriend in February. After his ER visit, he cut down. Still drinks sporadically. PMH, medications and allergies personally reviewed by me today. Any changes documented in appropriate section. PHYSICAL EXAM: Vitals: Blood pressure 136/78, pulse 77, temperature 36.8 C (98.3 F), temperature source Temporal, weight 75.1 kg (165 lb 8 oz), SpO2 100 %. Well-appearing and in no acute distress. EYES: Sclerae are anicteric bilaterally. ENT: Oral mucosa is unremarkable. There is no sign of oral or gingival bleeding. LYMPHATIC: There is no palpable cervical, supraclavicular, axillary adenopathy. RESPIRATORY: Inspiratory breath sounds are of normal intensity in all hoskins. No rales, wheezes or rhonchi. Expiratory phase is normal. CARDIOVASCULAR: Rhythm is regular. ABDOMEN: The abdomen is nondistended. No splenomegaly or hepatomegaly. No tenderness. Extremities: No swelling or edema. SKIN: Ecchymosis with abrasion over left elbow. He has 5 small discrete healing blisters right foot. 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 -Platelet count responded very well to pulse dose dexamethasone. -Bone marrow was normocellular with no evidence of acute leukemia but he was found to have hypolobated and micromegakaryocytes. -Mild splenomegaly on ultrasound. Still cannot appreciate on exam. -Back on prednisone ~3 days. -Discussed importance of medical adherence and abstinence from alcohol as heavy alcohol use likely caused bone marrow morphologic changes of megakaryocytes. -Platelet count today 30,000. -Discussed alternative treatments for acute ITP since he is having difficulty with adherence. Explained splenectomy would be second line option but not carries longer-term immunosuppressive consequences and he has not had a fair shot at steroid taper. We also discussed potential for rituximab whichI would not favor immediately due to the immunosuppressive effect. Plan: -Increase prednisone to 40 mg daily. -Recheck CBC in a week. -Possible IVIG. -Consider rituximab for if needed. 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 Thrombin time was normal. -Now fibrinogen antigen and activity both normal. Plan: -Monitor. Portions of this documentation were copied and pasted from previous office visit notes in order to provide a cohesive continuity of the history. The note has been reviewed and edited and updated as necessary. I spent a total of 30 minutes on the date of the service which included preparing to see the patient, [id number] patient care, completing clinical documentation, obtaining and/or reviewing separately obtained history, performing a medically appropriate examination, counseling and educating the pat ient/family/caregiver, ordering medications, tests, or procedures, and communicating results to thepatient/family/caregiver Killian Elam DO documented in this encounterHolzer Hospital10-24-2023 Miscellaneous Notes* Telephone Encounter - Amanda Hercules - 08/06/2023 4:18 PM EDT Patient is already scheduled for labs and an office visit on 08/12/23. Amanda Hercules * Telephone Encounter - Jenny Hurley LPN - 08/06/2023 3:57 PM EDT Received results from labs for today. Platelets 59, pt. Contacted pt. And questioned if he is taking his prednisone, he informed he is taking 1 tablet a day. Questioned if they are the 20 mg tablets.He didn't know. Questioned how long he has been taking 1 tablet daily, he stated since his last visit on 07/15. Instructed pt. To take 2 tablets daily and recheck his CBC in 1 week. Reminded him he had informed us on 07/30 that he had stopped the medication because he thought he was better. Pt. Informed me he was going to hang up on me now , even though he didn't want to . Pt. Sounded confused.Somewhat slurring of words. Instructed he needed to increase his pills and when I looked at the phone he had hung up. PSS please reach out to pt. To schedule labs in 1 week Jenny Hurley LPN documented in this encounterHolzer Hospital10-19-2023 Miscellaneous Notes* Telephone Encounter - Mary Mendes - 08/01/2023 12:13 PM EDT Message relayed and lab appt scheduled * Telephone Encounter - Katherine Walsh LPN - 08/01/2023 9:42 AM EDT Attempted to contact the patient. VM not set up, unable to leave a message. MyChart message still not read. Katherine Walsh LPN * Telephone Encounter - Bernadette Barron LPN - 07/30/2023 4:43 PM EDT Mychart sent. Bernadette Barron LPN * Telephone Encounter - Killian Elam DO - 07/30/2023 2:53 PM EDT Continue 40 mg daily and recheck CBC in a week. Killian Elam DO * Telephone Encounter - Bernadette Barron LPN - 07/30/2023 2:17 PM EDT See Mychart response from pt. Bernadette Barron LPN * Telephone Encounter - Bernadette Barron LPN - 07/30/2023 1:49 PM EDT No answer, no VM set up. Sent [employer] message. Bernadette Barron LPN * Telephone Encounter - Killian Elam DO - 07/30/2023 1:34 PM EDT If he just restarted then he does not have to have a CBC this Saturday. Did he start back on 40 or 60mg a day? Also, why did he stop taking it? Killian Elam DO * Telephone Encounter - Bernadette Barron LPN - 07/30/2023 12:20 PM EDT called pt on new phone number provided per [employer] message. He states he stopped prednisone after his last visit with you on 07/15 but states he restarted today. 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 PSS please make lab apt for early afternoon on Saturday for CBC. Bernadette Barron LPN * Telephone Encounter - Bernadette Barron LPN - 07/30/2023 11:27 AM EDT Unable to get through on his phone number. Cannot leave a VM on mothers phone voice mail box is full I sent Zane a YelloYello message requesting he call or respond via [employer]elloYello. Bernadette Barron LPN * Telephone Encounter - Killian Elam DO - 07/30/2023 8:12 AM EDT He is currently on prednisone 40 mg daily. Confirm he is taking that dose. Repeat CBC this Saturday. Killian Elam DO documented in this encounterHolzer Hospital10-11-2023 History of Present illness Narrative* Alan Bowie MD - 07/24/2023 5:15 PM EDT Patient no-showed today's appointment. Alan Bowie MD documented in this encounterHolzer Hospital09-21-2023 History of Present illness Narrative* Alan Bowei MD - 07/04/2023 12:01 PM EDT Patient no-showed today's appointment. Alan Bowie MD documented in this [facility]09-20-2023 Miscellaneous Notes* Telephone Encounter - Jenny Hurley LPN - 07/03/2023 8:07 AM EDT Spoke with pt. He is aware and will also look at his my chart. Jenny Hurley LPN * Telephone Encounter - Jenny Hurley LPN - 07/02/2023 4:09 PM EDT Left detailed message on pts. [employer] [facility] [employer] also sent info to him via my chart, He does not need to contact office unless he has questions. I will know if he sees this message Jenny Hurley LPN * Telephone Encounter - Killian Elam DO - 07/02/2023 4:03 PM EDT Let him know I would like him to start taking Bactrim every Saturday, Saturday and Saturday for protection from pneumonia while he is on prednisone. Also start omeprazole 1 tablet daily to help protect from stomach irritation while on prednisone. Killian Elam DO documented in this encounterHolzer Hospital09-19-2023 History of Present illness Narrative* Killian Elam DO - 07/02/2023 2:10 PM EDT Problems: 1) ITP. 2) Hypofibrinogenemia--resolved. 3) Loss of appetite. HPI: The patient is an otherwise healthy 23-year-old male whom I saw in consultation at the [facility] ED 05/22/2023 for severe thrombocytopenia and bruising. Per my HPI there: The patient is a 23-year-old male with an unremarkable past medical history. He presented to the ED earlier this afternoon with complaints of bruising. Symptoms have been going on about a month. He was afebrile on presentation. He said for the last month whenever he gets up in the morning he feels exhausted and has all over body aches. Often has to soak in a hot tub to start feeling better. He has been noticing unprovoked bruises all over for the last month. He has not had petechiae. Occasional gum bleeding when he brushes his teeth. No epistaxis or rectal bleeding. He has not had fevers or drenching night sweats. His appetite has been poor and he has lost about 10 to 15 pounds. He endorses that if he lies on his stomach, he develops abdominal pain. He has developed reflux symptoms in the last few days. No nausea or vomiting. He has not had black or bloody stools. Pertinent lab findings were initial platelet count 26,000. Remainder of CBC was normal. No schistocytes observed. Coagulation times normal. Fibrinogen low. D- dimer was normal. Thrombin time was normal. He was started on pulse dose dexamethasone 40 mg daily which she received on Saturday, , Saturday and Saturday of last week. Hospital day 3 platelets had increased to 48,000. 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 COMMENT Flow cytometry, FISH and cytogenetic studies are pending. Clinical correlation and appropriate follow up are necessary. Case has been reviewed in consultation with Dr. Hernandes who concurs with the above diagnosis. BONE MARROW STUDY Slides are reviewed. CBC DATE: 05/23/23 WBC 8.18; RBC 4.99; HGB 15.5; HCT 45.3; MCV 98.8; RDW 12.8; PLTS 48,000 SEGS 80.9%; LYMPHS 14.5%; MONOS 3.9%; EOS 0.0%; BASOS 0.1%; Immature granulocytes 0.6% PERIPHERAL SMEAR: Submitted. RBC: Normocytic and normochromic. WBC: Unremarkable. The WBC count is compatible to as reported above. PLTS: Markedly decreased. BONE MARROW ASPIRATE DIFFERENTIAL: 200 cell count. Blasts % (normal 0-2): 0 Promyelocytes % (normal 1-5): 2 Myelocytes and metamyelocytes % (normal 17-41): 24 Bands and Segs % (normal 15-32): 35 Eos % (normal 1-6): 3 Basos % (normal 0-1): 0 Monocytes % (normal 0-4): 2 Erythroid Precursors % (normal 17-35): 22 Lymphocytes % (normal 7-13): 12 Plasma Cells % (normal 0-2): 0 ASPIRATE FINDINGS: Site: Not specified Spicular, Cellular M/E ratio: 2.9 (Normal 1.5-4.0) Megakaryocytes: Present. Hypolobated and micromegakaryocytes are noted. Erythropoiesis: Normoblastic. Granulopoiesis: Progressive and unremarkable. Comment: Megakaryocytic dysplasia is noted. CORE BIOPSY FINDINGS: Site: Not specified Adequacy: Limited Comment: The specimen predominantly consists of peripheral blood mixed with a few hematopoietic cells consisting of erythroid, myeloid and megakaryocytes. ASPIRATE CLOT FINDINGS: Site: Not specified Marrow particles: Numerous Cellularity: 50% M/E ratio: Within normal limits. Megakaryocytes: Present and increased in number. Granulomas: Absent. Lymphoid aggregates: Absent. Atypical infiltrates: Absent. SPECIAL STAINS WITH MATCHED CONTROLS: Iron: 1+, atypical or ring sideroblasts are not seen. Reticulin: No significant increase of reticulin fibers is noted. PAS: Highlights myeloid cells and megakaryocytes Previous therapy: 1) Dexamethasone 40 mg x4 days. Current therapy: 1) Prednisone 60 mg daily started 06/11. 2) IVIG. Presents for ongoing hematologic management. Interim history: Started prednisone 06/11 for platelet count of 17,000. Had increased to 89,000-week later but a week after that decline to 28,000. Received IVIG 1 g/day x2 days 06/26 and 06/27. Tolerated well. He is tolerating prednisone well. Leg pain and weakness improved. Had some bruising last week but resolving. No fevers. No unusual bleeding. PMH, medications and allergies personally reviewed by me today. Any changes documented in appropriate section. ROS: Constitutional: No drenching night sweats. Neuro: No recent ALVARADO, vertigo, dizziness or imbalance. No symptoms of sensory neuropathy. HEENT: No recent change in voice, vision or hearing. Resp: No cough, wheeze of hemoptysis. No shortness of breath at rest. No REYES. CVS: No exertional chest pain, PND or orthopnea. No extremity swelling/edema. No symptoms of claudication. No painful or tender varicose veins. GI: No dysgeusia. No symptoms of stomatitis. No dysphagia or odynophagia. No reflux, n/v, change inbowel habits. No abdominal pain, bloating or distension. No black or bloody stools. : No dysuria or gross hematuria. No symptoms of bladder outlet obstruction. Endo: No hot flashes. No polyuria or polydipsia. No heat or cold intolerance. Derm: No current rash. No history of jaundice. No diffuse pruritis. Heme: See HPI. Psych: Normal mood. PHYSICAL EXAM: Vitals: Blood pressure 122/71, pulse 77, temperature 37.1 C (98.8 F), temperature source Temporal, weight 73.9 kg (163 lb), SpO2 99 %. Well-appearing and in no acute distress. EYES: Sclerae are anicteric bilaterally. ENT: Oral mucosa is unremarkable. There is no sign of oral or gingival bleeding. LYMPHATIC: There is no palpable cervical, supraclavicular, axillary adenopathy. RESPIRATORY: Inspiratory breath sounds are of normal intensity in all hoskins. No rales, wheezes or rhonchi. Expiratory phase is normal. CARDIOVASCULAR: Rhythm is regular. ABDOMEN: The abdomen is nondistended. No splenomegaly or hepatomegaly. No tenderness. Extremities: No swelling or edema. SKIN: Skin appears better since last exam. Still some minor bruising lower left back. Left breast further improved improved. Nodular findings in superior left breast resolved, so likely represented small hematomas. MUSCULOSKELETAL: No joint swelling or tenderness. No muscle wasting. LABS: Component Latest Ref Rng & Units 05/27/2023 05/30/2023 06/11/2023 06/18/2023 WBC 3.70 - 11.00 k/uL 8.89 9.30 5.36 8.22 RBC 4.20 - 6.00 m/uL 4.47 4.84 4.57 4.57 Hemoglobin 13.0 - 17.0 g/dL 14.0 14.6 14.3 14.1 Hematocrit 39.0 - 51.0 % 41.1 43.8 40.9 41.0 MCV 80.0 - 100.0 fL 91.9 90.5 89.5 89.7 MCH 26.0 - 34.0 pg 31.3 30.2 31.3 30.9 MCHC 30.5 - 36.0 g/dL 34.1 33.3 35.0 34.4 RDW-CV 11.5 - 15.0 % 12.8 12.6 12.5 12.3 Platelet Count 150 - 400 k/uL 168 62 (L) 17 (L) 89 (L) MPV 9.0 - 12.7 fL 11.2 12.0 14.3 (H) 11.8 Neut% % 43.4 60.4 57.1 52.0 Abs Neut (ANC) 1.45 - 7.50 k/uL 3.85 5.61 3.06 4.27 Lymph% % 50.5 31.9 35.4 42.2 Abs Lymph 1.00 - 4.00 k/uL 4.49 (H) 2.97 1.90 3.47 [place]% % 4.7 4.2 5.6 4.6 Abs [place] <0.87 k/uL 0.42 0.39 0.30 0.38 Eosin% % 0.4 1.4 0.6 0.5 Abs Eosin <0.46 k/uL 0.04 0.13 0.03 0.04 Baso% % 0.1 0.2 0.7 0.2 Abs Baso <0.11 k/uL <0.03 <0.03 0.04 <0.03 Immature Gran % % 0.9 1.9 0.6 0.5 IMMATURE GRANS (ABS) <0.10 k/uL 0.08 0.18 (H) 0.03 0.04 NRBC /100 WBC 0.0 0.0 0.0 0.0 Absolute nRBC <0.01 k/uL <0.01 <0.01 <0.01 <0.01 DTYPE Auto Auto Auto Auto Protein, Total 6.3 - 8.0 g/dL 6.1 (L) 6.5 Albumin 3.9 - 4.9 g/dL 4.1 4.7 Calcium 8.5 - 10.2 mg/dL 9.1 9.5 Bilirubin, Total 0.2 - 1.3 mg/dL 0.2 0.4 Alkaline Phosphatase 38 - 113 U/L 55 35 (L) AST 14 - 40 U/L 7 (L) 6 (L) ALT 10 - 54 U/L 11 10 Glucose 74 - 99 mg/dL 87 102 (H) BUN 9 - 24 mg/dL 27 (H) 15 Creatinine 0.73 - 1.22 mg/dL 1.05 0.99 Sodium 136 - 144 mmol/L 140 141 Potassium 3.7 - 5.1 mmol/L 3.9 3.2 (L) Chloride 97 - 105 mmol/L 104 107 (H) CO2 22 - 30 mmol/L 27 26 Anion Gap 9 - 18 mmol/L 9 8 (L) eGFR >=60 mL/min/1.73m 103 110 PT Sec <13.1 sec 9.8 10.1 PT INR 0.9 - 1.3 1.0 1.0 LD 135 - 225 U/L 161 APTT 23.0 - 32.4 sec 24.8 27.4 Fibrinogen 200 - 400 mg/dL 138 (L) 246 d Dimer <500 ng/mL FEU <190 Fibrinogen Ag 149 - 353 mg/dL 231 ASSESSMENT/PLAN: (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 -Platelet count responded very well to pulse dose dexamethasone. -Bone marrow was normocellular with no evidence of acute leukemia but he was found to have hypolobated and micromegakaryocytes. -ITP relapsed and he is now receiving prednisone high-dose with plan for slower taper. -Mild splenomegaly on ultrasound. Cannot appreciate on exam. Plan: -Continue prednisone 60 mg daily for now. -CBC today. -Start Bactrim for PCP prophylaxis and PPI. -Has consultation with Dr. Bowie on at [facility]. Anticipate may have further studies including platelet aggregation studies, platelet flow cytometry and electron microscopy. 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 Thrombin time was normal. -Now fibrinogen antigen and activity both normal. Plan: -Monitor. Portions of this documentation were copied and pasted from previous office visit notes in order to provide a cohesive continuity of the history. The note has been reviewed and edited and updated as necessary. I spent a total of 25 minutes on the date of the service which included preparing to see the patient, [id number] patient care, completing clinical documentation, obtaining and/or reviewing separately obtained history, performing a medically appropriate examination, counseling and educating the pat ient/family/caregiver, ordering medications, tests, or procedures, communicating with other HCPs (not separately reported), and communicating results to the patient/family/caregiver. Killian Elam DO documented in this encounterHolzer Hospital09-14-2023 Miscellaneous Notes* Telephone Encounter - Madi Maher - 06/27/2023 2:55 PM EDT This is the 1st-time treatment report for this patient. This patient is self- pay. The patient has anon-oncology regimen. I will reach out to [facility] for possible assistance. LVM to have PT call me back documented in this encounterHolzer Hospital09-13-2023 Miscellaneous Notes* Telephone Encounter - Karol Garcia - 06/26/2023 2:45 PM EDT Spoke with pt and scheduled as directed * Telephone Encounter - Katherine Walsh LPN - 06/26/2023 2:26 PM EDT Needs CBC on 06/28/2023. Katherine Walsh LPN * Telephone Encounter - Killian Elam DO - 06/25/2023 5:23 PM EDT Orders in [place]. Continue prednisone and repeat CBC on Saturday. Killian Elam DO * Telephone Encounter - Jenny Hurley LPN - 06/25/2023 4:35 PM EDT Spoke with pt. , informed to be here tomorrow 06/26 @ 10 am. For IVIG and again on 06/27 @ 8:30 am. Pt. Voiced understanding. Dr. Elam please place orders. Jenny Hurley LPN * Telephone Encounter - Jenny Hurley LPN - 06/25/2023 3:34 PM EDT Pt. Had labs today Platelets 28 , spoke with pt. He states he is taking the prednisone 20 mg , 3 tablets daily. Has not missed any doses. Jenny Hurley LPN documented in this encounterHolzer Hospital09-06-2023 Miscellaneous Notes* Telephone Encounter - Katherine Walsh LPN - 06/19/2023 2:10 PM EDT Patient is aware of all information and verbalized understanding. Patient asked that I call the Rx in to [facility] in [place]. This has been completed. Katherine Walsh LPN * Telephone Encounter - Bernadette Barron LPN - 06/19/2023 8:28 AM EDT Left message on Vm to call office regarding 10 day supply of K-Dur. Bernadette Barron LPN * Telephone Encounter - Killian Elam DO - 06/18/2023 5:09 PM EDT Let him know his potassium is little bit low. I sent in a 10-day course of K door. Killian Elam DO documented in this encounterHolzer Hospital09-05-2023 History of Present illness Narrative* Killian Elam DO - 06/18/2023 3:50 PM EDT Problems: 1) ITP. 2) Hypofibrinogenemia--resolved. 3) Loss of appetite. HPI: The patient is an otherwise healthy 23-year-old male whom I saw in consultation at the [facility] ED last week for severe thrombocytopenia and bruising. Per my HPI there: The patient is a 23-year-old male with an unremarkable past medical history. He presented to the ED earlier this afternoon with complaints of bruising. Symptoms have been going on about a month. He was afebrile on presentation. He said for the last month whenever he gets up in the morning he feels exhausted and has all over body aches. Often has to soak in a hot tub to start feeling better. He has been noticing unprovoked bruises all over for the last month. He has not had petechiae. Occasional gum bleeding when he brushes his teeth. No epistaxis or rectal bleeding. He has not had fevers or drenching night sweats. His appetite has been poor and he has lost about 10 to 15 pounds. He endorses that if he lies on his stomach, he develops abdominal pain. He has developed reflux symptoms in the last few days. No nausea or vomiting. He has not had black or bloody stools. Pertinent lab findings were initial platelet count 26,000. Remainder of CBC was normal. No schistocytes observed. Coagulation times normal. Fibrinogen low. D- dimer was normal. Thrombin time was normal. He was started on pulse dose dexamethasone 40 mg daily which she received on Saturday, , Saturday and Saturday of last week. Hospital day 3 platelets had increased to 48,000. 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 See comment. COMMENT Flow cytometry, FISH and cytogenetic studies are pending. Clinical correlation and appropriate follow up are necessary. Case has been reviewed in consultation with Dr. Hernandes who concurs with the above diagnosis. BONE MARROW STUDY Slides are reviewed. CBC DATE: 05/23/23 WBC 8.18; RBC 4.99; HGB 15.5; HCT 45.3; MCV 98.8; RDW 12.8; PLTS 48,000 SEGS 80.9%; LYMPHS 14.5%; MONOS 3.9%; EOS 0.0%; BASOS 0.1%; Immature granulocytes 0.6% PERIPHERAL SMEAR: Submitted. RBC: Normocytic and normochromic. WBC: Unremarkable. The WBC count is compatible to as reported above. PLTS: Markedly decreased. BONE MARROW ASPIRATE DIFFERENTIAL: 200 cell count. Blasts % (normal 0-2): 0 Promyelocytes % (normal 1-5): 2 Myelocytes and metamyelocytes % (normal 17-41): 24 Bands and Segs % (normal 15-32): 35 Eos % (normal 1-6): 3 Basos % (normal 0-1): 0 Monocytes % (normal 0-4): 2 Erythroid Precursors % (normal 17-35): 22 Lymphocytes % (normal 7-13): 12 Plasma Cells % (normal 0-2): 0 ASPIRATE FINDINGS: Site: Not specified Spicular, Cellular M/E ratio: 2.9 (Normal 1.5-4.0) Megakaryocytes: Present. Hypolobated and micromegakaryocytes are noted. Erythropoiesis: Normoblastic. Granulopoiesis: Progressive and unremarkable. Comment: Megakaryocytic dysplasia is noted. CORE BIOPSY FINDINGS: Site: Not specified Adequacy: Limited Comment: The specimen predominantly consists of peripheral blood mixed with a few hematopoietic cells consisting of erythroid, myeloid and megakaryocytes. ASPIRATE CLOT FINDINGS: Site: Not specified Marrow particles: Numerous Cellularity: 50% M/E ratio: Within normal limits. Megakaryocytes: Present and increased in number. Granulomas: Absent. Lymphoid aggregates: Absent. Atypical infiltrates: Absent. SPECIAL STAINS WITH MATCHED CONTROLS: Iron: 1+, atypical or ring sideroblasts are not seen. Reticulin: No significant increase of reticulin fibers is noted. PAS: Highlights myeloid cells and megakaryocytes Presents for ongoing hematologic management. Interim history: Less bruising. No new bruises. No fever. His appetite is starting to decline again. Feels its worse on prednisone. Denies reflux and abdominal pain. Remains fatigued. Still has muscle aches/soreness specially in legs. PMH, medications and allergies personally reviewed by me today. Any changes documented in appropriate section. ROS: Constitutional: No drenching night sweats. No fevers. Neuro: No recent ALVARADO, vertigo, dizziness or imbalance. No symptoms of sensory neuropathy. HEENT: No recent change in voice, vision or hearing. Resp: No cough, wheeze of hemoptysis. No shortness of breath at rest. No REYES. CVS: No exertional chest pain, PND or orthopnea. No extremity swelling/edema. No symptoms of claudication. No painful or tender varicose veins. GI: No dysgeusia. No symptoms of stomatitis. No dysphagia or odynophagia. No reflux, n/v, change inbowel habits. No abdominal pain, bloating or distension. No black or bloody stools. : No dysuria or gross hematuria. No symptoms of bladder outlet obstruction. Endo: No hot flashes. No polyuria or polydipsia. No heat or cold intolerance. Derm: No current rash. No history of jaundice. No diffuse pruritis. Heme: See HPI. Psych: Normal mood. PHYSICAL EXAM: Vitals: Blood pressure 121/76, pulse 90, temperature 36.9 C (98.5 F), weight 75.1 kg (165 lb 8 oz),SpO2 98 %. Well-appearing and in no acute distress. EYES: Sclerae are anicteric bilaterally. ENT: Oral mucosa is unremarkable. There is no sign of oral or gingival bleeding. LYMPHATIC: There is no palpable cervical, supraclavicular, axillary or inguinal adenopathy. RESPIRATORY: Inspiratory breath sounds are of normal intensity in all hoskins. No rales, wheezes or rhonchi. Expiratory phase is normal. CARDIOVASCULAR: Rhythm is regular. Normal intensity S1/S2. No murmur. ABDOMEN: The abdomen is nondistended. No splenomegaly or hepatomegaly. No tenderness. Extremities: No swelling or edema. SKIN: Skin appears much better. Still some minor bruising lower left back. Left breast significantly improved. Nodular findings in superior left breast much smaller so likely represented small hematomas. MUSCULOSKELETAL: No joint swelling or tenderness. No muscle wasting. LABS: Component Latest Ref Rng & Units 05/27/2023 05/30/2023 06/11/2023 06/18/2023 WBC 3.70 - 11.00 k/uL 8.89 9.30 5.36 8.22 RBC 4.20 - 6.00 m/uL 4.47 4.84 4.57 4.57 Hemoglobin 13.0 - 17.0 g/dL 14.0 14.6 14.3 14.1 Hematocrit 39.0 - 51.0 % 41.1 43.8 40.9 41.0 MCV 80.0 - 100.0 fL 91.9 90.5 89.5 89.7 MCH 26.0 - 34.0 pg 31.3 30.2 31.3 30.9 MCHC 30.5 - 36.0 g/dL 34.1 33.3 35.0 34.4 RDW-CV 11.5 - 15.0 % 12.8 12.6 12.5 12.3 Platelet Count 150 - 400 k/uL 168 62 (L) 17 (L) 89 (L) MPV 9.0 - 12.7 fL 11.2 12.0 14.3 (H) 11.8 Neut% % 43.4 60.4 57.1 52.0 Abs Neut (ANC) 1.45 - 7.50 k/uL 3.85 5.61 3.06 4.27 Lymph% % 50.5 31.9 35.4 42.2 Abs Lymph 1.00 - 4.00 k/uL 4.49 (H) 2.97 1.90 3.47 [place]% % 4.7 4.2 5.6 4.6 Abs [place] <0.87 k/uL 0.42 0.39 0.30 0.38 Eosin% % 0.4 1.4 0.6 0.5 Abs Eosin <0.46 k/uL 0.04 0.13 0.03 0.04 Baso% % 0.1 0.2 0.7 0.2 Abs Baso <0.11 k/uL <0.03 <0.03 0.04 <0.03 Immature Gran % % 0.9 1.9 0.6 0.5 IMMATURE GRANS (ABS) <0.10 k/uL 0.08 0.18 (H) 0.03 0.04 NRBC /100 WBC 0.0 0.0 0.0 0.0 Absolute nRBC <0.01 k/uL <0.01 <0.01 <0.01 <0.01 DTYPE Auto Auto Auto Auto Protein, Total 6.3 - 8.0 g/dL 6.1 (L) 6.5 Albumin 3.9 - 4.9 g/dL 4.1 4.7 Calcium 8.5 - 10.2 mg/dL 9.1 9.5 Bilirubin, Total 0.2 - 1.3 mg/dL 0.2 0.4 Alkaline Phosphatase 38 - 113 U/L 55 35 (L) AST 14 - 40 U/L 7 (L) 6 (L) ALT 10 - 54 U/L 11 10 Glucose 74 - 99 mg/dL 87 102 (H) BUN 9 - 24 mg/dL 27 (H) 15 Creatinine 0.73 - 1.22 mg/dL 1.05 0.99 Sodium 136 - 144 mmol/L 140 141 Potassium 3.7 - 5.1 mmol/L 3.9 3.2 (L) Chloride 97 - 105 mmol/L 104 107 (H) CO2 22 - 30 mmol/L 27 26 Anion Gap 9 - 18 mmol/L 9 8 (L) eGFR >=60 mL/min/1.73m 103 110 PT Sec <13.1 sec 9.8 10.1 PT INR 0.9 - 1.3 1.0 1.0 LD 135 - 225 U/L 161 APTT 23.0 - 32.4 sec 24.8 27.4 Fibrinogen 200 - 400 mg/dL 138 (L) 246 d Dimer <500 ng/mL FEU <190 Fibrinogen Ag 149 - 353 mg/dL 231 ASSESSMENT/PLAN: (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 -Platelet count responded very well to pulse dose dexamethasone. -Bone marrow was normocellular with no evidence of acute leukemia but he was found to have hypolobated and micromegakaryocytes. -ITP relapsed and he is now receiving prednisone high-dose with plan for slower taper. Tolerating prednisone well with improvement in platelet count. -Mild splenomegaly on ultrasound. Cannot appreciated on exam. -Still has poor appetite with continued weight loss. -Muscle soreness particularly in the legs. Possible steroid myopathy but this symptom predates use of steroids. Plan: -Continue prednisone 60 mg daily for now. -Recheck CBC in a week. -Check stool for H. pylori antigen. -Check DAVID -Check inflammatory markers including sed rate and CRP -Thyroid studies. -EBV panel. 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 Thrombin time was normal. -Now fibrinogen antigen and activity both normal. Plan: -Monitor. Portions of this documentation were copied and pasted from previous office visit notes in order to provide a cohesive continuity of the history. The note has been reviewed and edited and updated as necessary. I spent a total of 20 minutes on the date of the service which included preparing to see the patient, [id number] patient care, completing clinical documentation, obtaining and/or reviewing separately obtained history, performing a medically appropriate examination, counseling and educating the pat ient/family/caregiver, ordering medications, tests, or procedures, communicating with other HCPs (not separately reported), and communicating results to the patient/family/caregiver. Killian Elam DO documented in this encounterHolzer Hospital08-29-2023 Miscellaneous Notes* Telephone Encounter - Bernadette Barron LPN - 06/11/2023 1:42 PM EDT Cayetano Howard from client services calls with an urgent platelet value of 17. Dr Elam made aware in the other phone note from today. Bernadette Barron LPN. documented in this encounterHolzer Hospital08-29-2023 Miscellaneous Notes* Telephone Encounter - Katherine Walsh LPN - 06/11/2023 1:36 PM EDT Patient is aware of all information and is scheduled accordingly. 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 I reviewed all medication instructions and appointments with the patient and he verbalized understanding. I called and cancelled the dexamethasone Rx at [facility]. Katherine Walsh LPN * Telephone Encounter - Killian Elam DO - 06/11/2023 1:11 PM EDT Advise him not to take the dexamethasone. I sent in prescription for prednisone. He will start 60 mg daily and continue that dose until he sees me on Monday 06/18 at 3:40 PM. CBC/CMP at that visit. Once I know how platelets are responding then can decide on tapering course for the prednisone. Killian Elam DO * Telephone Encounter - Jenny Gray LPN - 06/11/2023 10:09 AM EDT Rx canceled at [facility], they informed pt. Never picked rx up. RX called to [facility] [place], spoke with Nikita the pharmacist. Contacted pt. Informed rx was sent to [facility], and he needs to come in for Labs before 1 pm today, and he needs to wait in our waiting room for results. Pt. Voiced understanding. Jenny Gray LPN * Telephone Encounter - Mary Mendes - 06/11/2023 9:58 AM EDT Mother called stating patient did not molded goods spot picker rx from 05/30. She is asking that Decadron be sent to [facility] in [place] and she will pick it up for him. documented in this encounterHolzer Hospital08-29-2023 Miscellaneous Notes* Telephone Encounter - Katherine Walsh LPN - 06/11/2023 10:37 AM EDT Patient is aware he will need to be here prior to 4:45 for labs with possible transfusion. Patient instructed to be here at 1:00. Katherine Walsh LPN * Telephone Encounter - Bernadette Barron LPN - 06/11/2023 8:32 AM EDT Left message on VM regarding need for labs today and instructions regarding green wrist band for possible tx. Bernadette Barron LPN * Telephone Encounter - Katherine Walsh LPN - 06/10/2023 8:30 AM EDT Message left on patient's VM asking him to come in for labs. Katherine Walsh LPN * Telephone Encounter - Killian Elam DO - 06/10/2023 6:24 AM EDT He didn't have labs done last week. Important that he do so. Please call him to ask him to come today for a CBC/poss transfusion and labs entered under this encounter. Killian Elam DO * Telephone Encounter - Mary Mendes - 06/09/2023 1:33 PM EDT Good Afternoon, This patient is scheduled with Dr. Bowie on 07/04/23 at 8:30am. Patient is aware of apt. Thank you! * Telephone Encounter - Karol Garcia - 06/07/2023 2:47 PM EDT Pt has not read message Attempted to contact pt again: Lm Tried to call pt's mother (emergency contact) Unable to leave message - not set up Sending Unable to reach letter via mail * Telephone Encounter - Karol Garcia - 06/05/2023 4:53 PM EDT Once pt is scheduled will need follow up OV with * Telephone Encounter - Katherine Walsh LPN - 06/05/2023 9:28 AM EDT Please attempt to contact patient again to schedule with main campus as directed below. Katherine Walsh LPN * Telephone Encounter - Mary Mendes - 06/04/2023 8:54 AM EDT Labs added/linked to appointment * Telephone Encounter - Killian Elam DO - 06/04/2023 8:14 AM EDT Please add labs below when here on for CBC. Killian Elam DO * Telephone Encounter - Sherri Botello - 06/03/2023 11:42 AM EDT Second message left for patient to call back to schedule second opinion appointment at [facility] * Telephone Encounter - Katherine Walsh LPN - 05/30/2023 5:06 PM EDT Patient is aware to answer phone and/or return call from [facility] to schedule [facility]. Katherine Walsh LPN * Telephone Encounter - Katherine Walsh LPN - 05/30/2023 11:14 AM EDT MeroArte message has not been read. I attempted to contact the patient's mother, unable to leave a message. Katherine Walsh LPN * Telephone Encounter - Sherri Botello - 05/29/2023 10:05 AM EDT I reached out from [facility] for patient to call back to schedule second opinion at [facility] * Telephone Encounter - Jenny Gray LPN - 05/28/2023 5:05 PM EDT Results sent to pt. Via my chart. Jenny Gray LPN * Telephone Encounter - Killian Elam DO - 05/28/2023 4:55 PM EDT Can let him or her know that the ultrasound showed the liver and biliary tree were all normal. Pancreas was normal. Kidneys were normal. Spleen was mildly enlarged as is sometimes observed with ITP. Killian Elam DO * Telephone Encounter - Katherine Walsh LPN - 05/28/2023 1:18 PM EDT I spoke with the patient and he gave permission to discuss all medical care/results with his mother, Mable Snyder. Appointment desk updated. Katherine Walsh LPN * Telephone Encounter - Killian Elam DO - 05/28/2023 1:00 PM EDT She was at the office visit with him yesterday. Perhaps someone could call Zane and ask him if it is okay to discuss results with her as well? Killian Elam DO * Telephone Encounter - Mary Mendes - 05/28/2023 11:44 AM EDT Mother calling for US results. I informed her I was looking for consent, unable to find. She states she will stop in office after work to speak to someone regarding results. Please advise. documented in this encounterHolzer Hospital08-23-2023 Miscellaneous Notes* Telephone Encounter - Karol Garcia - 06/05/2023 4:52 PM EDT See 05/28 phone encounter * Telephone Encounter - Karol Garcia - 06/02/2023 10:16 AM EDT Pt still not scheduled, sent follow up e-mail to cancer answer * Telephone Encounter - Karol Garcia - 05/27/2023 10:33 AM EDT Check out comments: CBC/poss trans on . US liver/spleen Referral [facility] hematology. Platelet aggregation panel when at [facility]. Bone marrow slides from 05/24 at [facility] to [facility]. OV after [facility] evaluation. US- Today CBC(TX?)-Scheduled Cancer Answer e-mail sent Once pt is scheduled please assist in scheduling OV documented in this encounterHolzer Hospital08-18-2023 Miscellaneous Notes* Telephone Encounter - Mary Mednes - 05/31/2023 8:37 AM EDT CBC scheduled for 06/06 * Telephone Encounter - Jenny Gray LPN - 05/30/2023 4:58 PM EDT Spoke with given information concerning low platelets, will molded goods spot picker rx and take as directed. PSS please put pt. On schedule for CBC next @ 2 pm. Jenny Gray LPN * Telephone Encounter - Killian Elam DO - 05/30/2023 4:44 PM EDT His platelets are getting low again. 62,000 today. Please advise him to take another 4-day course of dexamethasone. Rx sent. Can start tomorrow or Saturday. Repeat CBC next . Killian Elam DO documented in this encounterHolzer Hospital08-17-2023 Miscellaneous Notes* Telephone Encounter - Jenny Gray LPN - 05/30/2023 5:06 PM EDT Pt. Notified order was cancelled and he doesn't need appt. For Saturday labs. Jenny Gray LPN * Telephone Encounter - Killian Elam DO - 05/30/2023 5:01 PM EDT I wanted this drawn when he was at [facility] to see hematology there. So I canceled the order Ritu will let the propagator laborer there order it if he or she feels necessary. Killian Elam DO * Telephone Encounter - Katherine Walsh LPN - 05/30/2023 5:00 PM EDT Please file lab order. Katherine Walsh LPN * Telephone Encounter - Amanda Hercules - 05/30/2023 3:50 PM EDT Lab scheduled as directed. Amanda Hercules * Telephone Encounter - Bernadette Barron LPN - 05/30/2023 3:19 PM EDT lab calls stating the platelet aggregation was pulled erroneously. This test needs to be drawn in the morning, Sat- and lab needs to schedule a warehouse logistics coordinator so specimen can be to [facility] in a timely fashion. Dr Elam Please file pended order for platelet I called pt and explained. he will come back Saturday AM at 11:00. PSS please schedule lab. Bethany in lab aware. documented in this encounterHolzer Hospital08-14-2023 History of Present illness Narrative* Gena Jaramillo RDMS - 05/27/2023 2:30 PM EDT Radiology Service Progress Note PATIENT NAME: Zane Buitrago DATE OF SERVICE: May 27, 2023 TIME: 3:26 PM PATIENT IDENTITY VERIFICATION COMPLETED USING TWO (2) IDENTIFIERS: Name and Date of confirmedby patient verbally. FALL SCREENING: Has the patient had 2 falls in the last year or 1 fall with injury or currently using an Ambulatory Assistive Device (Walker, Cane, Wheelchair, Crutches, etc.)? No PATIENT GENDER DATA: Male PATIENT RELEVANT IMPLANT DATA REVIEWED: Not Applicable RADIOLOGY DEPARTMENT: Ultrasound PERIPHERAL IV DATA: Not applicable SIGNED BY: Gena Jaramillo RDMS RVT May 27, 2023 3:26 PM documented in this encounterHolzer Hospital08-14-2023 History of Present illness Narrative* Killian Elam DO - 05/27/2023 9:46 AM EDT Diagnosis: 1) ITP. 2) Hypofibrinogenemia. HPI: The patient is an otherwise healthy 23-year-old male whom I saw in consultation at the [facility] ED last week for severe thrombocytopenia and bruising. Per my HPI there: The patient is a 23-year-old male with an unremarkable past medical history. He presented to the ED earlier this afternoon with complaints of bruising. Symptoms have been going on about a month. He was afebrile on presentation. He said for the last month whenever he gets up in the morning he feels exhausted and has all over body aches. Often has to soak in a hot tub to start feeling better. He has been noticing unprovoked bruises all over for the last month. He has not had petechiae. Occasional gum bleeding when he brushes his teeth. No epistaxis or rectal bleeding. He has not had fevers or drenching night sweats. His appetite has been poor and he has lost about 10 to 15 pounds. He endorses that if he lies on his stomach, he develops abdominal pain. He has developed reflux symptoms in the last few days. No nausea or vomiting. He has not had black or bloody stools. Pertinent lab findings were initial platelet count 26,000. Remainder of CBC was normal. No schistocytes observed. Coagulation times normal. Fibrinogen low. D- dimer was normal. Thrombin time was normal. He was started on pulse dose dexamethasone 40 mg daily which she received on Saturday, , Saturday and Saturday of last week. Hospital day 3 platelets had increased to 48,000. 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 See comment. COMMENT Flow cytometry, FISH and cytogenetic studies are pending. Clinical correlation and appropriate follow up are necessary. Case has been reviewed in consultation with Dr. Hernandes who concurs with the above diagnosis. BONE MARROW STUDY Slides are reviewed. CBC DATE: 05/23/23 WBC 8.18; RBC 4.99; HGB 15.5; HCT 45.3; MCV 98.8; RDW 12.8; PLTS 48,000 SEGS 80.9%; LYMPHS 14.5%; MONOS 3.9%; EOS 0.0%; BASOS 0.1%; Immature granulocytes 0.6% PERIPHERAL SMEAR: Submitted. RBC: Normocytic and normochromic. WBC: Unremarkable. The WBC count is compatible to as reported above. PLTS: Markedly decreased. BONE MARROW ASPIRATE DIFFERENTIAL: 200 cell count. Blasts % (normal 0-2): 0 Promyelocytes % (normal 1-5): 2 Myelocytes and metamyelocytes % (normal 17-41): 24 Bands and Segs % (normal 15-32): 35 Eos % (normal 1-6): 3 Basos % (normal 0-1): 0 Monocytes % (normal 0-4): 2 Erythroid Precursors % (normal 17-35): 22 Lymphocytes % (normal 7-13): 12 Plasma Cells % (normal 0-2): 0 ASPIRATE FINDINGS: Site: Not specified Spicular, Cellular M/E ratio: 2.9 (Normal 1.5-4.0) Megakaryocytes: Present. Hypolobated and micromegakaryocytes are noted. Erythropoiesis: Normoblastic. Granulopoiesis: Progressive and unremarkable. Comment: Megakaryocytic dysplasia is noted. CORE BIOPSY FINDINGS: Site: Not specified Adequacy: Limited Comment: The specimen predominantly consists of peripheral blood mixed with a few hematopoietic cells consisting of erythroid, myeloid and megakaryocytes. ASPIRATE CLOT FINDINGS: Site: Not specified Marrow particles: Numerous Cellularity: 50% M/E ratio: Within normal limits. Megakaryocytes: Present and increased in number. Granulomas: Absent. Lymphoid aggregates: Absent. Atypical infiltrates: Absent. SPECIAL STAINS WITH MATCHED CONTROLS: Iron: 1+, atypical or ring sideroblasts are not seen. Reticulin: No significant increase of reticulin fibers is noted. PAS: Highlights myeloid cells and megakaryocytes Presents for ongoing hematologic management. Interim history: Less bruising. No new bruises. No fever. Appetite better. Still has muscle aches/soreness in legs. LBP. Younger brother had ALL age 4. Age 12 now. Treated at [facility]. PMH, medications and allergies personally reviewed by me today. Any changes documented in appropriate section. ROS: Constitutional: No drenching night sweats. Normal appetite. Neuro: No recent ALVARADO, vertigo, dizziness or imbalance. No symptoms of sensory neuropathy. HEENT: No recent change in voice, vision or hearing. Resp: No cough, wheeze of hemoptysis. No shortness of breath at rest. No REYES. CVS: No exertional chest pain, PND or orthopnea. No extremity swelling/edema. No symptoms of claudication. No painful or tender varicose veins. GI: No dysgeusia. No symptoms of stomatitis. No dysphagia or odynophagia. No reflux, n/v, change inbowel habits. No abdominal pain, bloating or distension. No black or bloody stools. : No dysuria or gross hematuria. No symptoms of bladder outlet obstruction. Endo: No hot flashes. No polyuria or polydipsia. No heat or cold intolerance. Musculoskeletal: No bone, back, joint and muscular pain. Derm: No current rash. No history of jaundice. No diffuse pruritis. Heme: See HPI. Psych: Normal mood. PHYSICAL EXAM: Vitals: Blood pressure 118/68, pulse 74, temperature 37.1 C (98.7 F), height 174 cm (5' 8.5), weight 80.7 kg (178 lb), SpO2 98 %. Well-appearing and in no acute distress. EYES: Sclerae are anicteric bilaterally. ENT: Oral mucosa is unremarkable. There is no sign of oral or gingival bleeding. LYMPHATIC: There is no palpable cervical, supraclavicular, axillary or inguinal adenopathy. RESPIRATORY: Inspiratory breath sounds are of normal intensity in all hoskins. No rales, wheezes or rhonchi. Expiratory phase is normal. CARDIOVASCULAR: Rhythm is regular. Normal intensity S1/S2. No murmur. ABDOMEN: The abdomen is nondistended. No splenomegaly or hepatomegaly. No tenderness. Extremities: No swelling or edema. SKIN: Multiple resolving ecchymoses. Still has bruising to left breast with small palpable nodule likely representing organizing hematoma. NEUROLOGIC: cement tester assistant II-XII are grossly intact. No focal motor weakness. MUSCULOSKELETAL: No joint swelling or tenderness. No muscle wasting. LABS: Component Latest Ref Rng & Units 05/27/2023 WBC 3.70 - 11.00 k/uL 8.89 RBC 4.20 - 6.00 m/uL 4.47 Hemoglobin 13.0 - 17.0 g/dL 14.0 Hematocrit 39.0 - 51.0 % 41.1 MCV 80.0 - 100.0 fL 91.9 MCH 26.0 - 34.0 pg 31.3 MCHC 30.5 - 36.0 g/dL 34.1 RDW-CV 11.5 - 15.0 % 12.8 Platelet Count 150 - 400 k/uL 168 MPV 9.0 - 12.7 fL 11.2 Neut% % 43.4 Abs Neut (ANC) 1.45 - 7.50 k/uL 3.85 Lymph% % 50.5 Abs Lymph 1.00 - 4.00 k/uL 4.49 (H) [place]% % 4.7 Abs [place] <0.87 k/uL 0.42 Eosin% % 0.4 Abs Eosin <0.46 k/uL 0.04 Baso% % 0.1 Abs Baso <0.11 k/uL <0.03 Immature Gran % % 0.9 IMMATURE GRANS (ABS) <0.10 k/uL 0.08 NRBC /100 WBC 0.0 Absolute nRBC <0.01 k/uL <0.01 DTYPE Auto Protein, Total 6.3 - 8.0 g/dL 6.1 (L) Albumin 3.9 - 4.9 g/dL 4.1 Calcium 8.5 - 10.2 mg/dL 9.1 Bilirubin, Total 0.2 - 1.3 mg/dL 0.2 Alkaline Phosphatase 38 - 113 U/L 55 AST 14 - 40 U/L 7 (L) ALT 10 - 54 U/L 11 Glucose 74 - 99 mg/dL 87 BUN 9 - 24 mg/dL 27 (H) Creatinine 0.73 - 1.22 mg/dL 1.05 Sodium 136 - 144 mmol/L 140 Potassium 3.7 - 5.1 mmol/L 3.9 Chloride 97 - 105 mmol/L 104 CO2 22 - 30 mmol/L 27 Anion Gap 9 - 18 mmol/L 9 eGFR >=60 mL/min/1.73m 103 PT Sec <13.1 sec 9.8 PT INR 0.9 - 1.3 1.0 LD 135 - 225 U/L 161 APTT 23.0 - 32.4 sec 24.8 Component Latest Ref Rng & Units 05/27/2023 d Dimer <500 ng/mL FEU <190 ASSESSMENT/PLAN: (D69.3) Acute ITP (HCC) (primary encounter diagnosis) Assessment: -The patient is a 23-year-old male who presented to the ED last week with complaints of month-long fatigue, muscle aches and extensive bruising. -Platelet count responded very well to pulsed dose dexamethasone. -Bone marrow is normocellular with no evidence of acute leukemia but he was found to have hypolobated and micromegakaryocytes. -Platelet count today low normal. Plan: -Ultrasound liver and spleen. -Repeat CBC on . -Second course of pulse dose dexamethasone if platelet count declines again. -Bone marrow pathology slides to [facility] for second opinion. -Awaiting cytogenetic studies. -Will obtain platelet aggregation studies. May possibly need platelet flow cytometry and electron microscopy to be certain no other underlying platelet disorder. -Referral to [facility] hematology for expert second opinion and further recommendations. 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 Thrombin time was normal. 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 Plan: -Repeat D-dimer and fibrinogen level. --Referral to [facility] hematology for expert second opinion and further recommendations. I spent a total of 40 minutes on the date of the service which included preparing to see the patient, [id number] patient care, completing clinical documentation, obtaining and/or reviewing separately obtained history, performing a medically appropriate examination, counseling and educating the pat ient/family/caregiver, ordering medications, tests, or procedures, communicating with other HCPs (not separately reported), and communicating results to the patient/family/caregiver. Killian Elam DO documented in this encounterHolzer Hospital08-14-2023 Miscellaneous Notes* Telephone Encounter - Killian Elam DO - 05/27/2023 8:24 AM EDT Orders filed. Killian Elam DO * Telephone Encounter - Karol Garcia - 05/24/2023 3:46 PM EDT Pt scheduled as directed * Telephone Encounter - Bernadette Barron LPN - 05/24/2023 3:[address] Elam asks to put this pt in on Saturday05/24/23. He has been seeing him at [facility]. Pt is being discharged today. Please make pt a lab apt at 0830 (CBC(S)- Possible tx, CMP(S) LDH(S) PT(S) PTT(S) Fibrinogin (S) DDIMER (S) and AUTOMOBILE UPHOLSTERER OV at 9:00. I spoke to the nurses station at [facility], she will add this info to his D/C note. I tried calling pt, no answer. I called mother and left detailed message on her cell phone. Will pend labs. Bernadette Barron LPN documented in this encounterHolzer Hospital08-11-2023 Progress note Author Kay Yoo [facility] May 24, 2023 1:35pm Note Date/Time May 23, 2023 2: 14pm [facility] Medical Records Department [address] [place] [address] Progress Note 05/23/23 1406 MR#: [id number] Acct: [id number] Name: ZANE BUITRAGO Rep #:[id number] 5 : 2000 23 From: Kay Yoo MD PCP: Care Physician,No Primary Status :ADM IN Location: [place] [address] Subjective Subjective Patient seen and examined. He felt well today and had no active complaints. He had an uneventful night. He hasnt had any worsening of the bruises and hasnt noted any bleeding. Review of systems is otherwise negative. Platelets came up to 48 today, even before he got a unit of platelets transfused. Review of systems is otherwise negative. Objective Data Objective Data Vital Signs: Vital Signs Temp Pulse Resp BP Pulse Ox O2 Del Method O2 Flow Rate 97.5 F L 59 L 18 125/65 H 98 Room Air 34 05/23/23 10:45 05/23/23 10:45 05/23/23 10:45 05/23/23 10:45 05/23/23 10:45 05/23/23 10:45 05/23/23 09:30 Oxygen Flow Rate (L/min) [4] 34 Oxygen Delivery Method [4] Room Air Oxygen Delivery Method [3] Room Air Oxygen Delivery Method [2] Room Air Oxygen Delivery Method [1 ( Room Air Initial Baseline)] Oxygen Delivery Method Room Air Weight: 159 lb 6.307 oz Body Mass Index (BMI) 22.8 Intake & Output: Intake and Output for Last 24 Hours 05/21/23 05/22/23 05/23/23 23:59 23:59 23:59 Intake Total 960 / 1460 705.5 / 705.5 Balance 960 / 1460 705.5 / 705.5 Medical Nutrition Assessment Dietitian: Malnutrition Criteria Met Start: 05/22/23 13:29 Freq: Status: Active Protocol: Document 05/22/23 13:29 RMA (Rec: 05/22/23 13:29 RMA [id number]) Nutrition Malnutrition Evidence of Malnutrition Exists Yes Malnutrition (severe): Acute Illness/Injury Evidenced By Suboptimal Energy Intake ( Severe),Weight Loss (Severe) Clinical Problem Acute Disease or Injury Related Malnutrition Etiology Severe protein-calorie malnutrition in the context of acute illness related to inadequate oral/energy/protein intake Signs/Symptoms as evidenced by ~21% weight loss x 1 year and PO meeting less than 50% estimated nutrition needs x past 6 months Status Active Problem Recommendation Dietitian Recommendations/Changes Continue Regular Diet as ordered. Will continue 120mL ensure plus high protein 3 times per day w/ medpass as ordered. Will add extra 2 oz meat/ protein Q meal tray and milkshakes w/ meals per pt request. Lab / Micro Data 05/23/23 05:30 05/23/23 05:30 Labs: Laboratory Results - last 24 hr 05/21/23 18:20: Diff Path Review Reviewed 05/21/23 20:00: Haptoglobin 38 05/22/23 06:35: Diff Path Review Reviewed 05/22/23 14:50: Fibrinogen 200 L 05/23/23 02:30: Blood Type Cancelled 05/23/23 02:30: Blood Type O POSITIVE, A1 Antigen Typing Cancelled, Rho(D) Type Cancelled, Antibody Screen NEGATIVE 05/23/23 05:30: WBC 8.2, RBC 4.99, Hgb 15.5, Hct 45.3, MCV 90.8, MCH 31.1, MCHC 34.2, RDW Std Deviation 42.2, RDW Coeff of Nba 12.8, Plt Count 48 L*, MPV 11.9, Immature Gran % (Auto) 0.600, Neut % (Auto) 80.9 H, Lymph % (Auto) 14.5 L, [place] % (Auto) 3.9, Eos % (Auto) 0.0, Baso % (Auto) 0.1, Absolute Neuts (auto) 6.6, Absolute Lymphs (auto) 1.19, Nucleated RBC % 0, Diff Path Review Reviewed, Platelet Estimate MKD DEC, Fibrinogen 163 L, D-Dimer Quant (PE/DVT) < 0.27 L, Sodium 137, Potassium 4.3, Chloride 105, Carbon Dioxide 27.0, Anion Gap 5, BUN 16, Creatinine 0.90, Estim Creat Clear Calc 131.66, Est GFR (MDRD) Af Amer 136, Est GFR (MDRD) Non-Af 112, BUN/Creatinine Ratio 17.8, Glucose 140 H, Calcium 9.3, Total Bilirubin 0.80, AST 9 L, ALT 35, Alkaline Phosphatase 42 L, Total Protein 7.7, Albumin 4.2, Globulin 3.5, Albumin/Globulin Ratio 1.2 Radiography Diagnostic Testing: Radiology Impression Biopsy CT 05/23/23 09:00 IMPRESSION: Successful CT guided bone marrow biopsy and aspirate of the posterior left iliac bone, as described above. Conscious sedation protocol was followed. Electronically Signed: Houston Larios MD at 10:28 EDT , Physical Exam Const alert, oriented x3 and no apparent distress General Appearance: cooperative and well developed HEENT normocephalic, head/scalp atraumatic, TM's normal bilaterally, moist oral mucousmembranes, oropharynx normal and gingiva normal Eyes PERRL and EOMs intact bilaterally Neck no lymphadenopathy and supple Lymph Lymphatic: no lymphadenopathy noted and no lymphedema noted Resp normal respiratory effort, normal air movement and clear to auscultation bilaterally Cardio regular rate, regular rhythm, S1 normal heart sound, S2 normal heart sound and no murmurs GI normal to inspection, nondistended, normoactive bowel sounds, soft to palpation,non-tender and non-distended Extremity normal capillary refill, no clubbing, cyanosis or edema and no calf tenderness Skin Skin Narrative: has multiple ecchymotic patches over his arms and legs, and torso. Has a significant bruise over the left breast. Neuro CN's II-XII intact bilaterally, no focal motor deficits, no sensory deficits noted and deep tendon reflexes 2+ bilaterally Motor Exam: strength 5/5 throughout Psych thought process normal, cooperative and affect normal Appearance: appropriate Assessment & Plan Assessment/Plan (1) Ecchymoses, spontaneous: (2) Severe thrombocytopenia: (3) Muscular aches: (4) Hypofibrinogenemia: PLAN: Plan #SEvere thrombocytopenia * platelets are up to 48 today, from 22 yesterday * has associated multiple ecchymotic bruises, and had some bleeding from his gums when brushing his teeth today * hematology on board; 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 * peripheral blood smear as reviewed by propagator laborer showed many elliptical rbcs and several schistocytes appreciate only towards the feathered edge, nad no pltelet clumping. * peripheral smear reviewd by pathologists who didnt see any schistocytes. * bilirubin and LDH were normal, and he now has low fibrinogen * Fibrinogen remains low, and D dimer is low also * HIV an HEp C tests ordered and negative. * awaiting transfer to tertiary facility for close monitoring and further workup as needed * had bone marrow biopsy done today. Received a unit of platelets before bone biopsy today. * on dexamethasone 40mg daily x 4 days. day is day 2. * # Chronic cannabinoid use: encouraged to quit DVT prophylaxis; SCDs.No anticoagulation in light of severe thrombocytopenia Charges/Coding Visit Charges Inpatient E&M: 07171 Subs Hosp L2 05/24/23 1335 <Electronically signed by Kay Yoo MD> Kay Yoo MD Cosigner Signature (if applicable): CC: ~ Signed [facility] Work Phone: 1(737) 485-104108-10-2023 Progress note Author Killian Elam [facility] May 23, 2023 8:40am Note Date/Time May 23, 2023 8: 40am [facility] Medical Records Department [address] [place] [address] Progress Note - Oncology 05/23/23 0829 MR#: [id number] Acct: [id number] Name: ZANE BUITRAGO Rep #:[id number] 4 : 2000 23 From: Killian Elam DO PCP: Care Physician,No Primary Status :ADM IN [facility] Subjective Subjective No complaints this am. Says legs feel better--not as sore. No bleeding. No new ecchymosis. Physical Exam Cardio regular rhythm Skin Skin Narrative: No obvious change in pattern of ecchymoses. Vital Signs Temperature 98.1 F 05/23/23 07:22 Temperature Source Oral 05/23/23 07:22 Pulse Rate 74 05/23/23 07:22 Respiratory Rate 16 05/23/23 07:22 Blood Pressure 118/96 H 05/23/23 07:22 Blood Pressure Mean 103 05/23/23 07:22 Blood Pressure Source Monitor 05/23/23 07:22 Blood Pressure Position Semi-Fowlers 05/23/23 07:22 Blood Pressure Location Right Arm 05/23/23 07:22 Pulse Ox 96 05/23/23 08:25 Oxygen Delivery Method Room Air 05/23/23 08:25 Laboratory Results - last 24 hr 05/21/23 20:00: Haptoglobin 38 05/22/23 06:35: Immature Plt Fraction 22.5 H, Retic Count 1.58 H, Immature ReticFraction 6.90, Retic Hgb Equivalent 35.1 H, Total Creatine Kinase 66, Hepatitis C Antibody Non-Reactive, HIV 1&2 Antibody Non-Reactive 05/22/23 14:50: Fibrinogen 200 L 05/23/23 02:30: Blood Type Cancelled 05/23/23 02:30: Blood Type O POSITIVE, A1 Antigen Typing Cancelled, Rho(D) Type Cancelled, Antibody Screen NEGATIVE 05/23/23 05:30: WBC 8.2, RBC 4.99, Hgb 15.5, Hct 45.3, MCV 90.8, MCH 31.1, MCHC 34.2, RDW Std Deviation 42.2, RDW Coeff of Nba 12.8, Plt Count 48 L*, MPV 11.9, Immature Gran % (Auto) 0.600, Neut % (Auto) 80.9 H, Lymph % (Auto) 14.5 L, [place] % (Auto) 3.9, Eos % (Auto) 0.0, Baso % (Auto) 0.1, Absolute Neuts (auto) 6.6, Absolute Lymphs (auto) 1.19, Nucleated RBC % 0, Diff Path Review May , Platelet Estimate MKD DEC, Fibrinogen 163 L, D-Dimer Quant (PE/DVT) < 0.27 L, Sodium 137, Potassium 4.3, Chloride 105, Carbon Dioxide 27.0, Anion Gap 5, BUN 16, Creatinine 0.90, Estim Creat Clear Calc 131.66, Est GFR (MDRD) Af Amer 136, Est GFR (MDRD) Non-Af 112, BUN/Creatinine Ratio 17.8, Glucose 140 H, Calcium 9.3, Total Bilirubin 0.80, AST 9 L, ALT 35, Alkaline Phosphatase 42 L, Total Protein 7.7, Albumin 4.2, Globulin 3.5, Albumin/Globulin Ratio 1.2 Assessment & Plan Assessment/Plan (1) Hypofibrinogenemia: (2) Severe thrombocytopenia: (3) Ecchymoses, spontaneous: PLAN: Impression: -Severe thrombocytopenia associated with malaise and general muscle aches/weakness ~1 month. -Loss of appetite and weight loss. -PBS reviewed by both Drs. Randall and Cecilio--A few atypical lymphocytes, no schistocytes, no immature granulocytes and no blasts. -LDH remained normal. Hgb stable at ~15.5 g/dL. -Positive urobilinogen on admit. -Normal coagulation times x2. -Fibrinogen fluctuating but low. -dDimer normal. -Hep C and HIV negative. -Serum CK normal. -Platelets up to 48K just prior to platelet transfusion this morning. Plan: -Awaiting thrombin time. -Continue dexamethasone 40 mg PO daily x4 days (day #2 today). -Monitor CBC, coagulation times, fibrinogen, dDimer daily. -Scheduled for bone marrow biopsy this am. Discussed procedure and rationale wiht him. -If preliminary on bone marrow analysis (hopefully tomorrow) does not suggest acute leukemia and platelet count continues to increase then patient may be discharged with instructions to complete the 4-day course of dexamethasoneand outpatient follow- up can be arranged for early next week. 05/23/23 0840 <Electronically signed by Killian Elam DO> Cosigner Signature (if applicable): CC: ~ Signed [facility] Work Phone: 1(607) 416-792608-10-2023 Discharge summary Author Jasper Payan [facility] May 23, 2023 7:12am Note Date/Time May 21, 2023 6:1 1pm [facility] Medical Records Department [address] [place] [address] [place] [id number] Emergency Department Summary 05/21/23 MR#: [id number] Acct: [id number] Name: ZANE BUITRAGO Rep #:[id number] : 2000 23 From: Jasper Bonilla PCP: Care Physician,No Primary Status :ADM IN Location: MS3 [id number] HPI History of Present Illness Chief Complaint: General Illness Informant: patient Onset/Context/Timing Onset: Month(s) (1) Context: Gradual Onset Timing: Continuous Quality: Soreness Location: Generalized Worsened by: Nothing Relieved by: Hot baths Narrative Narrative: Patient presents with bruising that has been getting progressively worse over the past month. Patient states it started in his lower extremities and now it spread to his abdomen, chest, and upper extremities. Patient denies any bleeding. Patient denies any trauma or injuries. Patient admits to some nauseabut denies any vomiting. Patient admits to some dark urine but denies any dysuria, hematuria, or frequency. Patient does admit to some pain in his back. Patient denies any fevers or chills. PFSH PFSH Medical History (Updated 05/22/23 @ 08:[address] Killian Elam DO) Cannabis use disorder Medical History no medical history no medical history Home Medications NK 05/22/23 [History Last Taken Unknown] Allergy/AdvReac Type Severity Reaction Status Date / Time No Known Allergies Allergy Verified 05/21/23 17:27 Family History (Updated 05/22/23 @ 01:[address] Karol Mari MD) Mother No problems noted. Father No problems noted. Surgical History No history of previous surgery Surgical History no surgical history no surgical history Social History (Updated 05/22/23 @ 01:[address] Karol Mari MD) household members: none Smoking Status: Never smoker alcohol intake: never substance use type: marijuana ROS ROS ED Constitutional Constitutional ED: Denies chills or fever(s) Eyes Eyes: Denies blurry vision or change in vision ENT ENT ED: Denies rhinorrhea or sore throat Cardiovascular Cardiovascular: Denies chest pain or palpitations Respiratory/Chest Respiratory/Chest: Denies cough or dyspnea Gastrointestinal Gastrointestinal: Reports nausea; Denies vomiting Genitourinary Genitourinary ED: Denies dysuria or hematuria Musculoskeletal Musculoskeletal: Reports back pain; Denies neck pain Integumentary Denies abscess or rash Neurologic Neurologic: Denies headache(s) or weakness Hematologic/Lymphatic Hematologic/Lymphatic: Reports as per HPI and easy bruising Allergic/Immunologic Allergic/Immunologic ED: Denies mouth swelling or urticaria EXAM Physical Exam Const Vital Signs: 05/21/23 17:28 Temperature 98 F Temperature Source Temporal Pulse Rate 87 Respiratory Rate 14 Blood Pressure 111/96 H Blood Pressure Mean 101 Pulse Ox 98 Oxygen Delivery Method Room Air Positive well nourished and well developed General Appearance ED: well developed HEENT Reports moist mucous membranes Neck supple and no JVD Resp normal respiratory effort and clear to auscultation bilaterally Cardio regular rate, regular rhythm and no murmurs GI normal to inspection, nondistended, normoactive bowel sounds and non-tender Palpation: soft Extremity normal to inspection General Extremety ED: Negative for edema General Extremity: Negative for edema Neuro oriented x3, CN's II-XII intact bilaterally and no sensory deficits noted Sensorium / Orientation: alert Motor Exam: strength 5/5 throughout Psych mental status grossly normal Skin skin turgor normal Skin Narrative: There are multiple areas of ecchymosis. There is tenderness over the areas of ecchymosis. There is no bleeding noted. MDM MDM MDM Narrative Medical decision making narrative: Differential diagnosis includes coagulopathy, thrombocytopenia, ITP, TTP, HSP, and anemia. CBC will be obtained to assess for leukocytosis, anemia, and thrombocytopenia. Basic metabolic profile will be obtained to assess for electrolyte abnormality and renal function. PT with INR and PTT will be obtained to assess for coagulopathy. Urinalysis will be obtained to assess for hematuria. Lab Data Attestation: I reviewed the patient's lab results. Lab results narrative: CBC was reviewed. Platelets were low at 24. White blood cell count was normal. Hemoglobin and hematocrit were normal. PT with INR and PTT were reviewed and were within normal limits. Comprehensive metabolic profile was reviewed. AST was slightly low at 14. Alk phos was slightly low at 40. Urinalysis was reviewed. Urine urobilinogen was slightly elevated at 1. The remainder is within normal limits. Labs: Laboratory Results - last 24 hr 05/21/23 20:00 Haptoglobin 38 Additional Tests and Interventions Additional Tests or Interventions: Case was discussed with Dr. Elam from hematology oncology. He recommended obtaining an LDH and a haptoglobin. These were ordered. LDH was normal at 209. Haptoglobin is still pending. Treatment and Re-Evaluation :: Dr. Elam came in to evaluate the patient. He recommended transferring the patient for further evaluation at a higher level of care. He believes that thismay be from ITP however, patient has no signs of petechia which are consistent with ITP. Because it is not a clear-cut diagnosis, he recommends further evaluation and higher level of care. Patient understands and is agreeable with the plan. All questions were answered. Case was discussed with [facility] transfer line. Case was discussed withDr. Pena from hematology. He agreed that the patient would benefit from transfer to [facility]. However, he recommended admitting to the medical service. Case was discussed with Dr. Zuluaga from the medical service. He stated that he would accept the patient however, there were no bedsavailable at this time. He stated that it may take days before bed becomes available. Case was discussed with [facility] transfer line. Case was discussed with Dr. Riggs from hematology. He agreed to have the patient transferred there. Transfer line noted that it may take days before a bed becomes available there as well. Case was discussed with the hospitalist here. If a bed does not become available in a reasonable timeframe, patient will be admitted here pending transfer to either [facility] or [facility]. Dr. Elam will be able to see the patient if the patient is admitted here pending transfer. Discharge Plan Dx/Rx/DC Orders Clinical Impression: Ecchymoses, spontaneous, Severe thrombocytopenia Disposition Disposition: Acute Care Hospital [facility] Discharge Date/Time: 05/22/23 05:57 What to do if you have Problems For any increased pain, shortness of breath, bleeding, nausea or vomiting, chestpain, or any unexpected problems, contact your Primary Care Provider. Call [facility] ([phone]) or report to the closest Emergency Room. Call 911 if necessary. 05/23/23711 <Electronically signed by Jasper Payan DO> Cosigner Signature (if applicable): CC: No Primary Care Physician ~ Signed [facility] Work Phone: 1(580) 493-256708-09-2023 Progress note Author Kay Yoo [facility] May 22, 2023 2:31pm Note Date/Time May 22, 2023 9:4 3am [facility] Medical Records Department [address] [place] [address] Progress Note 05/22/23937 MR#: [id number] Acct: [id number] Name: ZANE BUITRAGO Rep #:[id number] : 2000 23 From: Kay Yoo MD PCP: Care Physician,No Primary Status :ADM IN Location: NM3 [id number] Subjective Subjective Patient seen and examined. He had no complaints. He hasnt developed any new bruises. He did see some blood when brushing his teeth today. Review of systems is otherwise negative. Platelets are down to 22 today from 24 on admission. Objective Data Objective Data Vital Signs: Vital Signs Temp Pulse Resp BP Pulse Ox O2 Del Method 97.9 F 51 L 17 128/68 H 99 Room Air 05/22/23 06:18 05/22/23 06:18 05/22/23 06:18 05/22/23 06:18 05/22/23 06:18 05/22/23 06:18 Oxygen Delivery Method Room Air Weight: 159 lb 6.307 oz Body Mass Index (BMI) 22.8 Lab / Micro Data 05/22/23 06:35 05/22/23 06:35 Labs: Laboratory Results - last 24 hr 05/21/23 18:20: WBC 6.5, RBC 5.00, Hgb 15.5, Hct 45.5, MCV 91.0, MCH 31.0, MCHC 34.1, RDW Std Deviation 43.1, RDW Coeff of Nba 13.1, Plt Count 24 L*, MPV 13.5 H, Immature Gran % (Auto) 0.600, Neut % (Auto) 61.9, Lymph % (Auto) 31.0, [place] % (Auto) 5.7, Eos % (Auto) 0.5, Baso % (Auto) 0.3, Absolute Neuts (auto) 4.0, Absolute Lymphs (auto) 2.00, Nucleated RBC % 0, Differential Comment SCANNED, Diff Path Review February, PT 14.4, INR 1.1, APTT 30.7, Sodium 138, Potassium 4.1, Chloride 108 H, Carbon Dioxide 25.0, Anion Gap 5, BUN 10, Creatinine 1.00, Estim Creat Clear Calc 119.64, Est GFR (MDRD) Af Amer 120, Est GFR (MDRD) Non-Af99, BUN/Creatinine Ratio 10.0, Glucose 97, Calcium 9.1, Total Bilirubin 0.90, AST 14 L, ALT 42, Alkaline Phosphatase 40 L, Total Protein 7.4, Albumin 4.1, Globulin 3.3, Albumin/Globulin Ratio 1.2 05/21/23 18:56: Urine Color Yellow, Urine Clarity Clear, Urine pH 8.0, Ur Specific [place] 1.010, Urine Protein 15 H, Urine Glucose (UA) Normal, Urine Ketones Negative, Urine Occult Blood Negative, Urine Nitrite Negative, Urine Bilirubin Negative, Urine Urobilinogen 1 H, Ur Leukocyte Esterase Negative, Urine RBC 0 SEEN, Urine WBC 0 SEEN, Ur Squamous Epith Cells 0 SEEN, Urine Bacteria 0 SEEN, Urine Mucus 0 SEEN 05/21/23 20:00: Lactate Dehydrogenase 209 05/22/23 06:35: WBC 7.7, RBC 5.02, Hgb 15.3, Hct 45.1, MCV 89.8, MCH 30.5, MCHC 33.9, RDW Std Deviation 42.5, RDW Coeff of Nba 13.0, Plt Count 22 L*, MPV 12.4 H, Immature Gran % (Auto) 0.500, Neut % (Auto) 52.4, Lymph % (Auto) 40.8, [place] % (Auto) 5.2, Eos % (Auto) 0.7, Baso % (Auto) 0.4, Absolute Neuts (auto) 4.0, Absolute Lymphs (auto) 3.14, Nucleated RBC % 0, Diff Path Review February foll, Platelet Estimate MKD DEC, Immature Plt Fraction 22.5 H, Retic Count 1.58 H, Immature Retic Fraction 6.90, Retic Hgb Equivalent 35.1 H, PT 14.7, INR 1.1, APTT 31.9, Fibrinogen 172 L, Sodium 141, Potassium 3.6, Chloride 109 H, Carbon Dioxide 27.0, Anion Gap 5, BUN 13, Creatinine 1.01, Estim Creat Clear Calc 117.32, Est GFR (MDRD) Af Amer 119, Est GFR (MDRD) Non-Af 98, BUN/Creatinine Ratio 12.9, Glucose 87, Calcium 8.8, Total Bilirubin 1.00, AST 12 L, ALT 39, Alkaline Phosphatase 38 L, Lactate Dehydrogenase 200, Total Creatine Kinase 66, Total Protein 7.3, Albumin 4.1, Globulin 3.2, Albumin/Globulin Ratio 1.3, Hepatitis C Antibody Non-Reactive, HIV 1&2 Antibody Non-Reactive Physical Exam Const alert, oriented x3 and no apparent distress General Appearance: cooperative and well developed HEENT head/scalp atraumatic, moist oral mucous membranes, oropharynx normal and gingiva normal HEENT Narrative: gingiva not visibly swollen Eyes PERRL and EOMs intact bilaterally Neck no lymphadenopathy and supple Lymph Lymphatic: no lymphadenopathy noted and no lymphedema noted Resp normal respiratory effort, normal air movement and clear to auscultation bilaterally Cardio regular rate, regular rhythm, S1 normal heart sound, S2 normal heart sound and no murmurs GI normal to inspection, nondistended, normoactive bowel sounds, soft to palpation,non-tender and non-distended Extremity normal capillary refill, no clubbing, cyanosis or edema and no calf tenderness Skin Skin Narrative: has multiple ecchymotic patches over his arms and legs, and torso. Has a significant bruise over the left breast. Neuro CN's II-XII intact bilaterally, no focal motor deficits, no sensory deficits noted and deep tendon reflexes 2+ bilaterally Motor Exam: strength 5/5 throughout Psych thought process normal, cooperative and affect normal Appearance: appropriate Assessment & Plan Assessment/Plan (1) Ecchymoses, spontaneous: (2) Severe thrombocytopenia: (3) Muscular aches: (4) Hypofibrinogenemia: PLAN: Plan #SEvere thrombocytopenia * platelets were 24 on admission, now down to 22. * has associated multiple ecchymotic bruises, and had some bleeding from his gums when brushing his teeth today * hematology on board; 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 * per hematology, pathology asked to review slides; if negative fo schistocytes, then will start on dexamethasone 40mg daily x 4 days. * awaiting transfer to tertiary facility for close monitoring and further workup as needed * HIV and Hep C test ordered. * repeat stat fibrinogen and fibrinogen and D dimer ordered for tomorrow * # Chronic cannabinoid use: encouraged to quit DVT prophylaxis; SCDs.No anticoagulation in light of severe thrombocytopenia 10:21am: I was informed by Dr Elam that he spoke to pathologist Dr Randall who reviewed the slides and didnt see any schistocytes. Plan is therefore to treat for ITP and start on PO dexamethasone 40mg daily x 4 days. 1:53pm: I was informed by Dr Elam that due to need for bone marrow biopsy, and concern that acute promyelocytic leukemia could also present in a similar fashion, He had spoken to the propagator laborer at [facility] who said he would accept the patient and see in consult if medicine accepted the patient. Dr. Elam did speak to the medicine team who accepted the patient pending availability of bed. Per Dr. Elam, if patient has not been transferred by tomorrow then he will do a bone marrow biopsy. Patient to be given 1 units of platelets before the biopsy. Platelets ordered. Charges/Coding Visit Charges Inpatient E&M: 71096 Subs Hosp L3 05/22/23 1431 <Electronically signed by Kay Yoo MD> Kay Yoo MD Cosigner Signature (if applicable): CC: ~ Signed [facility] Work Phone: [phone]) 384-141308-09-2023 Progress note Author Killian Elam [facility] May 22, 2023 10:15am Note Date/Time May 22, 2023 8:2 9am [facility] Medical Records Department [address] [place] [address] Progress Note - Oncology 05/22/23 0820 MR#: [id number] Acct: [id number] Name: ZANE BUITRAGO Rep #:[id number] : 2000 23 From: Killian Elam DO PCP: Care Physician,No Primary Status :ADM IN Location: [place] [address]-1 Subjective Subjective No subjective change. No bleeding issues or fever overnight. Poor appetite this am. Physical Exam Eyes no scleral icterus Lymph Lymphatic: no lymphadenopathy noted Chest Chest: ecchymosis Resp normal air movement Cardio regular rhythm Skin Skin Narrative: No change in ecchymoses. Vital Signs Temperature 97.9 F 05/22/23 06:18 Temperature Source Oral 05/22/23 06:18 Pulse Rate 51 L 05/22/23 06:18 Respiratory Rate 17 05/22/23 06:18 Blood Pressure 128/68 H 05/22/23 06:18 Blood Pressure Mean 88 05/22/23 06:18 Blood Pressure Source Monitor 05/22/23 06:18 Blood Pressure Position Semi-Fowlers 05/22/23 06:18 Blood Pressure Location Right Arm 05/22/23 06:18 Pulse Ox 99 05/22/23 06:18 Oxygen Delivery Method Room Air 05/22/23 06:18 Laboratory Results - last 24 hr 05/21/23 18:20: WBC 6.5, RBC 5.00, Hgb 15.5, Hct 45.5, MCV 91.0, MCH 31.0, MCHC 34.1, RDW Std Deviation 43.1, RDW Coeff of Nba 13.1, Plt Count 24 L*, MPV 13.5 H, Immature Gran % (Auto) 0.600, Neut % (Auto) 61.9, Lymph % (Auto) 31.0, [place] % (Auto) 5.7, Eos % (Auto) 0.5, Baso % (Auto) 0.3, Absolute Neuts (auto) 4.0, Absolute Lymphs (auto) 2.00, Nucleated RBC % 0, Differential Comment SCANNED, Diff Path Review February, PT 14.4, INR 1.1, APTT 30.7, Sodium 138, Potassium 4.1, Chloride 108 H, Carbon Dioxide 25.0, Anion Gap 5, BUN 10, Creatinine 1.00, Estim Creat Clear Calc 119.64, Est GFR (MDRD) Af Amer 120, Est GFR (MDRD) Non-Af99, BUN/Creatinine Ratio 10.0, Glucose 97, Calcium 9.1, Total Bilirubin 0.90, AST 14 L, ALT 42, Alkaline Phosphatase 40 L, Total Protein 7.4, Albumin 4.1, Globulin 3.3, Albumin/Globulin Ratio 1.2 05/21/23 18:56: Urine Color Yellow, Urine Clarity Clear, Urine pH 8.0, Ur Specific [place] 1.010, Urine Protein 15 H, Urine Glucose (UA) Normal, Urine Ketones Negative, Urine Occult Blood Negative, Urine Nitrite Negative, Urine Bilirubin Negative, Urine Urobilinogen 1 H, Ur Leukocyte Esterase Negative, Urine RBC 0 SEEN, Urine WBC 0 SEEN, Ur Squamous Epith Cells 0 SEEN, Urine Bacteria 0 SEEN, Urine Mucus 0 SEEN 05/21/23 20:00: Lactate Dehydrogenase 209 05/22/23 06:35: WBC 7.7, RBC 5.02, Hgb 15.3, Hct 45.1, MCV 89.8, MCH 30.5, MCHC 33.9, RDW Std Deviation 42.5, RDW Coeff of Nba 13.0, Plt Count 22 L*, MPV 12.4 H, Immature Gran % (Auto) 0.500, Neut % (Auto) 52.4, Lymph % (Auto) 40.8, [place] % (Auto) 5.2, Eos % (Auto) 0.7, Baso % (Auto) 0.4, Absolute Neuts (auto) 4.0, Absolute Lymphs (auto) 3.14, Nucleated RBC % 0, Diff Path Review February, Platelet Estimate MKD DEC, PT 14.7, INR 1.1, APTT 31.9, Fibrinogen 172 L, Kkurbi379, Potassium 3.6, Chloride 109 H, Carbon Dioxide 27.0, Anion Gap 5, BUN 13, Creatinine 1.01, Estim Creat Clear Calc 117.32, Est GFR (MDRD) Af Amer 119, Est GFR (MDRD) Non-Af 98, BUN/Creatinine Ratio 12.9, Glucose 87, Calcium 8.8, Total Bilirubin 1.00, AST 12 L, ALT 39, Alkaline Phosphatase 38 L, Lactate Dehydrogenase 200, Total Protein 7.3, Albumin 4.1, Globulin 3.2, Albumin/Globulin Ratio 1.3 Assessment & Plan Assessment/Plan (1) Severe thrombocytopenia: (2) Ecchymoses, spontaneous: (3) Hypofibrinogenemia: (4) Malaise: (5) Muscular aches: PLAN: Impression: -Severe thrombocytopenia associated with malaise and general muscle aches/weakness ~1 month. -Loss of appetite and weight loss. -Reviewed PBS last evening--Many elliptical RBCs and several schistocytes appreciated only toward feathered edge. No obvious blasts. No platelet clumping. -LDH remains normal on repeat as does bilirubin. -Positive urobilinogen. -Normal coagulation times. -Now with low fibrinogen. 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 Plan: -Asked pathologist to review PBS. -Recheck coagulation times. -Thrombin time. -Retic count. -Hep C and HIV test. -Serum CK--muscle hematomas? -If no schistocytes per pathology, then begin dexamethasone 40 mg PO daily x4 days. -Awaiting transfer to tertiary [facility] for close monitoring and further work up. 05/22/23 0834 <Electronically signed by Killian Elam DO> Cosigner Signature (if applicable): CC: ~ Signed ADDENDUM by Dr. Killian Elam DO on 05/22/23 at 1015 Assessment & Plan PLAN: Plan Discussed with Dr. Randall who reviewed peripheral blood smear. No schistocytes observed. Will start dex pulse as above. Transfuse 1 unit platelets in am if no appreciable increase in platelet count by tomorrow am. 05/22/23 1015<Electronically signed by Killian Elam DO> Cosigner Signature (if applicable): cc: ~* Signed [facility] Work Phone: [phone]) 364-448308-09-2023 History and physical note Author Karol Mari [facility] May 22, 2023 1:20am Note Date/Time May 22, 2023 1:2 0am [facility] Medical Records Department [address] [place] [id number] H&P Exam - Hospitalist 05/22/23 0117 MR#: [id number] Acct: [id number] Name: ZANE BUITRAGO Rep #:[id number] : 2000 23 From: Karol Mari MD PCP: Care Physician,No Primary Status :REG ER Location: ED HPI - General General Date of Admission: 05/22/23 Date of Service: 05/22/23 Chief Complaint: Bruising, fatigue, malaise, weight loss. HPI Narrative The patient is a 23 y/o M w/ PMHx: Cannabis use otherwise healthy with no medical history and no recent illnesses or recent medications usage who presentsto the [facility] initially on 05/21/2023 with history of approximately 1 month of increased fatigue, myalgias, malaise, decreased appetite, weight loss of approximately 10 to 15 pounds, night sweats as well as nausea without any emesiswith onset of ecchymoses unprovoked initially starting distally and going upwards spreading to his abdomen and chest with no travis bleeding except occasionally when he brushes his teeth. Patient denied any fevers or chills. Patient does report mild enlargement over bruising of the right breast with suspected hematoma. Patient denied any petechia. Workup in the ED included T98,heart rate 87, BP 111/96, respiratory rate 14, 98% on room air, CBC with WC 6.5,hemoglobin 15.5, platelet 24 without marked shift, pending haptoglobin, coags unremarkable, CMP with chloride 108 otherwise not marked appearing, LDH 209, urinalysis with protein 15, urine urobilinogen 1 otherwise urine unremarkable, PBS review per Dr. Elma oncology with noted many elliptical RBCs and several schistocytes only toward feathered edge with no obvious blasts or any platelet clumping. ED physician did discuss case with oncologist Dr. Elam who presentedto the hospital and evaluated the patient with data at this point suggestive of ITP although reported to very atypical and usual presentation with data suggestive of ITP but certainly could be a possible evolving TTP with recommendation for transfer to tertiary facility. [facility] was contacted as well as [facility] and patient is still awaiting bed placement but per discussion with the ED has been accepted therefore decision to admit to [facility] pending further tertiary facility bed availability. [facility] Medical History (Updated 05/22/23 @ 01:[address] Karol Mari MD) Cannabis use disorder Medical History no medical history Allergy/AdvReac Type Severity Reaction Status Date / Time No Known Allergies Allergy Verified 05/21/23 17:27 Family History (Updated 05/22/23 @ 01:[address] Karol Mari MD) Mother No problems noted. Father No problems noted. other (Denies any marked maternal or paternal family history including HD, DM, CA.) Surgical History (Updated 05/22/23 @ 01:[address] Karol Mari MD) No history of previous surgery Surgical History no surgical history Social History (Updated 05/22/23 @ 01:[address] Karol Mari MD) household members: none Smoking Status: Never smoker alcohol intake: never substance use type: marijuana ROS ROS Narrative Admission Review of Systems: CONSTITUTIONAL: + weight loss, fever, chills, weakness or fatigue. HEENT: Eyes: No visual loss, blurred vision, double vision or yellow sclerae. Ears, Nose, Throat: No hearing loss, sneezing, congestion, runny nose or sore throat. SKIN: + Significant diffuse ecchymotic change of various stages. CARDIOVASCULAR: No chest pain, chest pressure or chest discomfort, palpitations,edema, orthopnea, syncopal events. RESPIRATORY: No shortness of breath, cough or sputum, wheezing, hemoptysis. GASTROINTESTINAL: + anorexia, nausea, dyspepsia. No vomiting or diarrhea, abdominal pain, melena, BRBPR. GENITOURINARY: No dysuria, frequency, urgency or retention. NEUROLOGICAL: No headache, dizziness, syncope, paralysis, ataxia, numbness or tingling in the extremities, focal weakness, change in bowel or bladder control,seizure. MUSCULOSKELETAL: + muscle, back pain, joint pain or stiffness. HEMATOLOGIC: + bleeding or bruising. LYMPHATICS: No enlarged nodes. No history of splenectomy. PSYCHIATRIC: No history of depression or anxiety. ENDOCRINOLOGIC: + reports of sweating, cold or heat intolerance. No polyuria or polydipsia. ALLERGIES: No history of asthma, hives, eczema or rhinitis. Vital Signs Vital Signs Vital Signs: 05/21/23 17:28 05/22/23 00:40 Temperature 98 F Temperature Source Temporal Pulse Rate 87 78 Respiratory Rate 14 17 Blood Pressure 111/96 H 131/78 H Blood Pressure Mean 101 95 Pulse Ox 98 97 Oxygen Delivery Method Room Air Room Air Weight Weight: 164 lb 0.383 oz Body Mass Index (BMI) 23.5 Physical Exam Narrative Physical Examination: General: Awake, alert, oriented x 3 and cooperative, laying in the ED bed, fatigued but no acute distress. Skin: Normal color, normal turgor, no icterus, no cyanosis except for various staged ecchymotic change to the extremities and thorax as well as abdomen and back. HEENT: AT/NC, EOMI, PERRLA, MMM, no carotid bruits or JVD noted. Lungs: CTA bilaterally, moderate effort, mild decrease BL bases, no rales, ronchi or wheezing. Heart: Regular rate and rhythm; no gallop, rub audible. Abdomen: Soft, NTTP, ND, mildly hyperactive BS, no HSM. Extremities: No cyanosis, clubbing, or edema, see skin. Neurological: Patient awake, alert, oriented as noted, cognitive function intact; pupils equally reactive to light and accommodation, cranial nerves II-XII grossly normal, moving all 4 extremities, strength mildly globally decreasedbut no focal deficit, more fatigued primarily than anything. Psychiatric: Affect appears fatigued, no acute evidence of depressive or anxietyfeelings. Results Lab / Micro Data 05/21/23 18:20 05/21/23 18:20 Labs: Laboratory Results - last 24 hr 05/21/23 18:20: WBC 6.5, RBC 5.00, Hgb 15.5, Hct 45.5, MCV 91.0, MCH 31.0, MCHC 34.1, RDW Std Deviation 43.1, RDW Coeff of Nba 13.1, Plt Count 24 L*, MPV 13.5 H, Immature Gran % (Auto) 0.600, Neut % (Auto) 61.9, Lymph % (Auto) 31.0, [place] % (Auto) 5.7, Eos % (Auto) 0.5, Baso % (Auto) 0.3, Absolute Neuts (auto) 4.0, Absolute Lymphs (auto) 2.00, Nucleated RBC % 0, Differential Comment SCANNED, Diff Path Review February, PT 14.4, INR 1.1, APTT 30.7, Sodium 138, Potassium 4.1, Chloride 108 H, Carbon Dioxide 25.0, Anion Gap 5, BUN 10, Creatinine 1.00, Estim Creat Clear Calc 119.64, Est GFR (MDRD) Af Amer 120, Est GFR (MDRD) Non-Af99, BUN/Creatinine Ratio 10.0, Glucose 97, Calcium 9.1, Total Bilirubin 0.90, AST 14 L, ALT 42, Alkaline Phosphatase 40 L, Total Protein 7.4, Albumin 4.1, Globulin 3.3, Albumin/Globulin Ratio 1.2 05/21/23 18:56: Urine Color Yellow, Urine Clarity Clear, Urine pH 8.0, Ur Specific [place] 1.010, Urine Protein 15 H, Urine Glucose (UA) Normal, Urine Ketones Negative, Urine Occult Blood Negative, Urine Nitrite Negative, Urine Bilirubin Negative, Urine Urobilinogen 1 H, Ur Leukocyte Esterase Negative, Urine RBC 0 SEEN, Urine WBC 0 SEEN, Ur Squamous Epith Cells 0 SEEN, Urine Bacteria 0 SEEN, Urine Mucus 0 SEEN 05/21/23 20:00: Lactate Dehydrogenase 209 Assessment & Plan Assessment/Plan (1) Severe thrombocytopenia: PLAN: Plan The patient is a 23 y/o M w/ PMHx: Cannabis use otherwise healthy with no medical history and no recent illnesses or recent medications usage who presentsto the [facility] initially on 05/21/2023 with history of approximately 1 month of increased fatigue, myalgias, malaise, decreased appetite, weight loss of approximately 10 to 15 pounds, night sweats as well as nausea without any emesiswith onset of ecchymoses unprovoked initially starting distally and going upwards spreading to his abdomen and chest with no travis bleeding except occasionally when he brushes his teeth. #1. Severe thrombocytopenia, acute with spontaneous unprovoked ecchymoses concerning for possibly ITP or possibly evolving TTP, unclear exact etiology: Given no bed at tertiary facility will at this time admit to [facility], maintain on fall precautions, will continue consultation with [facility] oncology Dr. Elam, plan repeat CBC in a.m. and per discussion with ED physician with also oncology will hold on immediate steroid administration at this time pending repeat CBC and also if patient does obtain a tertiary facility bed prior. If does not transfer throught the evening-factory superintendent, would plan also to obtain breast US to be cautious to assure hematoma. #2. Chronic cannabis usage: Encourage cessation. #3. DVT prophylaxis: Defer especially given #1. Charges/Coding Visit Charges Inpatient E&M: 95894 Init Hosp L2 05/22/23 0120 <Electronically signed by Karol Mari MD> Cosigner Signature (if applicable): CC: Dr. Karol Mari MD; No Primary Care Physician~ Signed [facility] Work Phone: [phone]) 614-645908-09-2023 History and physical note Author Karol Mari [facility] May 22, 2023 1:20am Note Date/Time May 22, 2023 1:2 0am [facility] Medical Records Department [address] [place] [address] [place] [address] H&P Exam - Hospitalist 05/22/23 0117 MR#: [id number] Acct: [id number] Name: ZANE BUITRAGO Rep #:[id number] : 2000 23 From: Karol Mari MD PCP: Care Physician,No Primary Status :REG ER Location: ED HPI - General General Date of Admission: 05/22/23 Date of Service: 05/22/23 Chief Complaint: Bruising, fatigue, malaise, weight loss. HPI Narrative The patient is a 23 y/o M w/ PMHx: Cannabis use otherwise healthy with no medical history and no recent illnesses or recent medications usage who presentsto the [facility] initially on 05/21/2023 with history of approximately 1 month of increased fatigue, myalgias, malaise, decreased appetite, weight loss of approximately 10 to 15 pounds, night sweats as well as nausea without any emesiswith onset of ecchymoses unprovoked initially starting distally and going upwards spreading to his abdomen and chest with no travis bleeding except occasionally when he brushes his teeth. Patient denied any fevers or chills. Patient does report mild enlargement over bruising of the right breast with suspected hematoma. Patient denied any petechia. Workup in the ED included T98,heart rate 87, BP 111/96, respiratory rate 14, 98% on room air, CBC with WC 6.5,hemoglobin 15.5, platelet 24 without marked shift, pending haptoglobin, coags unremarkable, CMP with chloride 108 otherwise not marked appearing, LDH 209, urinalysis with protein 15, urine urobilinogen 1 otherwise urine unremarkable, PBS review per Dr. Elam oncology with noted many elliptical RBCs and several schistocytes only toward feathered edge with no obvious blasts or any platelet clumping. ED physician did discuss case with oncologist Dr. Elam who presentedto the hospital and evaluated the patient with data at this point suggestive of ITP although reported to very atypical and usual presentation with data suggestive of ITP but certainly could be a possible evolving TTP with recommendation for transfer to tertiary facility. [facility] was contacted as well as [facility] and patient is still awaiting bed placement but per discussion with the ED has been accepted therefore decision to admit to [facility] pending further tertiary facility bed availability. [facility] Medical History (Updated 05/22/23 @ 01:[address] Karol Mari MD) Cannabis use disorder Medical History no medical history Allergy/AdvReac Type Severity Reaction Status Date / Time No Known Allergies Allergy Verified 05/21/23 17:27 Family History (Updated 05/22/23 @ 01:[address] Karol Mari MD) Mother No problems noted. Father No problems noted. other (Denies any marked maternal or paternal family history including HD, DM, CA.) Surgical History (Updated 05/22/23 @ 01:[address] Karol Mari MD) No history of previous surgery Surgical History no surgical history Social History (Updated 05/22/23 @ 01:[address] Karol Mari MD) household members: none Smoking Status: Never smoker alcohol intake: never substance use type: marijuana ROS ROS Narrative Admission Review of Systems: CONSTITUTIONAL: + weight loss, fever, chills, weakness or fatigue. HEENT: Eyes: No visual loss, blurred vision, double vision or yellow sclerae. Ears, Nose, Throat: No hearing loss, sneezing, congestion, runny nose or sore throat. SKIN: + Significant diffuse ecchymotic change of various stages. CARDIOVASCULAR: No chest pain, chest pressure or chest discomfort, palpitations,edema, orthopnea, syncopal events. RESPIRATORY: No shortness of breath, cough or sputum, wheezing, hemoptysis. GASTROINTESTINAL: + anorexia, nausea, dyspepsia. No vomiting or diarrhea, abdominal pain, melena, BRBPR. GENITOURINARY: No dysuria, frequency, urgency or retention. NEUROLOGICAL: No headache, dizziness, syncope, paralysis, ataxia, numbness or tingling in the extremities, focal weakness, change in bowel or bladder control,seizure. MUSCULOSKELETAL: + muscle, back pain, joint pain or stiffness. HEMATOLOGIC: + bleeding or bruising. LYMPHATICS: No enlarged nodes. No history of splenectomy. PSYCHIATRIC: No history of depression or anxiety. ENDOCRINOLOGIC: + reports of sweating, cold or heat intolerance. No polyuria or polydipsia. ALLERGIES: No history of asthma, hives, eczema or rhinitis. Vital Signs Vital Signs Vital Signs: 05/21/23 17:28 05/22/23 00:40 Temperature 98 F Temperature Source Temporal Pulse Rate 87 78 Respiratory Rate 14 17 Blood Pressure 111/96 H 131/78 H Blood Pressure Mean 101 95 Pulse Ox 98 97 Oxygen Delivery Method Room Air Room Air Weight Weight: 164 lb 0.383 oz Body Mass Index (BMI) 23.5 Physical Exam Narrative Physical Examination: General: Awake, alert, oriented x 3 and cooperative, laying in the ED bed, fatigued but no acute distress. Skin: Normal color, normal turgor, no icterus, no cyanosis except for various staged ecchymotic change to the extremities and thorax as well as abdomen and back. HEENT: AT/NC, EOMI, PERRLA, MMM, no carotid bruits or JVD noted. Lungs: CTA bilaterally, moderate effort, mild decrease BL bases, no rales, ronchi or wheezing. Heart: Regular rate and rhythm; no gallop, rub audible. Abdomen: Soft, NTTP, ND, mildly hyperactive BS, no HSM. Extremities: No cyanosis, clubbing, or edema, see skin. Neurological: Patient awake, alert, oriented as noted, cognitive function intact; pupils equally reactive to light and accommodation, cranial nerves II-XII grossly normal, moving all 4 extremities, strength mildly globally decreasedbut no focal deficit, more fatigued primarily than anything. Psychiatric: Affect appears fatigued, no acute evidence of depressive or anxietyfeelings. Results Lab / Micro Data 05/21/23 18:20 05/21/23 18:20 Labs: Laboratory Results - last 24 hr 05/21/23 18:20: WBC 6.5, RBC 5.00, Hgb 15.5, Hct 45.5, MCV 91.0, MCH 31.0, MCHC 34.1, RDW Std Deviation 43.1, RDW Coeff of Nba 13.1, Plt Count 24 L*, MPV 13.5 H, Immature Gran % (Auto) 0.600, Neut % (Auto) 61.9, Lymph % (Auto) 31.0, [place] % (Auto) 5.7, Eos % (Auto) 0.5, Baso % (Auto) 0.3, Absolute Neuts (auto) 4.0, Absolute Lymphs (auto) 2.00, Nucleated RBC % 0, Differential Comment SCANNED, Diff Path Review February, PT 14.4, INR 1.1, APTT 30.7, Sodium 138, Potassium 4.1, Chloride 108 H, Carbon Dioxide 25.0, Anion Gap 5, BUN 10, Creatinine 1.00, Estim Creat Clear Calc 119.64, Est GFR (MDRD) Af Amer 120, Est GFR (MDRD) Non-Af99, BUN/Creatinine Ratio 10.0, Glucose 97, Calcium 9.1, Total Bilirubin 0.90, AST 14 L, ALT 42, Alkaline Phosphatase 40 L, Total Protein 7.4, Albumin 4.1, Globulin 3.3, Albumin/Globulin Ratio 1.2 05/21/23 18:56: Urine Color Yellow, Urine Clarity Clear, Urine pH 8.0, Ur Specific [place] 1.010, Urine Protein 15 H, Urine Glucose (UA) Normal, Urine Ketones Negative, Urine Occult Blood Negative, Urine Nitrite Negative, Urine Bilirubin Negative, Urine Urobilinogen 1 H, Ur Leukocyte Esterase Negative, Urine RBC 0 SEEN, Urine WBC 0 SEEN, Ur Squamous Epith Cells 0 SEEN, Urine Bacteria 0 SEEN, Urine Mucus 0 SEEN 05/21/23 20:00: Lactate Dehydrogenase 209 Assessment & Plan Assessment/Plan (1) Severe thrombocytopenia: PLAN: Plan The patient is a 23 y/o M w/ PMHx: Cannabis use otherwise healthy with no medical history and no recent illnesses or recent medications usage who presentsto the [facility] initially on 05/21/2023 with history of approximately 1 month of increased fatigue, myalgias, malaise, decreased appetite, weight loss of approximately 10 to 15 pounds, night sweats as well as nausea without any emesiswith onset of ecchymoses unprovoked initially starting distally and going upwards spreading to his abdomen and chest with no travis bleeding except occasionally when he brushes his teeth. #1. Severe thrombocytopenia, acute with spontaneous unprovoked ecchymoses concerning for possibly ITP or possibly evolving TTP, unclear exact etiology: Given no bed at tertiary facility will at this time admit to [facility], maintain on fall precautions, will continue consultation with [facility] oncology Dr. Elam, plan repeat CBC in a.m. and per discussion with ED physician with also oncology will hold on immediate steroid administration at this time pending repeat CBC and also if patient does obtain a tertiary facility bed prior. If does not transfer throught the evening-factory superintendent, would plan also to obtain breast US to be cautious to assure hematoma. #2. Chronic cannabis usage: Encourage cessation. #3. DVT prophylaxis: Defer especially given #1. Charges/Coding Visit Charges Inpatient E&M: 05114 Init Hosp L2 05/22/23 0120 <Electronically signed by Karol Mari MD> Cosigner Signature (if applicable): CC: Dr. Karol Mari MD; No Primary Care Physician~ Signed [facility] Work Phone: 1(141) 347-835608-08-2023 Consult note Author Killian [facility] May 21, 2023 8:59pm Note Date/Time May 21, 2023 8:3 8pm [facility] [address] [place] [address] Consultation - Oncology IP 05/21/232034 MR#: [id number] Acct: [id number] Name: ZANE BUITRAGO Rep #:[id number] : 2000 23 From: Killian Marialuisa PCP: Care Physician,No Primary Status :REG ER Location: ED Assessment & Plan Assessment/Plan (1) Severe thrombocytopenia: Status: Acute Code(s): D69.6 - Thrombocytopenia, unspecified (2) Ecchymoses, spontaneous: Status: Acute Code(s): R23.3 - Spontaneous ecchymoses (3) Malaise: Status: Acute Code(s): R53.81 - Other malaise (4) Muscular aches: Status: Acute Code(s): M79.10 - Myalgia, unspecified site Plan: Impression: -Severe thrombocytopenia associated with malaise and general muscle aches/weakness ~1 month. -Loss of appetite and weight loss. -Reviewed PBS--Many elliptical RBCs and several schistocytes appreciated only toward feathered edge. No obvious blasts. No platelet clumping. -Normal LDH. -Positive urobilinogen. -Normal coagulation times. -The data suggests ITP, but very unusual presentation for ITP. -Possible evolving TTP. Plan: -Recommend transfer to tertiary [facility] for close monitoring and further work up. HPI Consult Data Date of Service:: 05/21/23 PCP / Referring Provider: No Primary Care Phys Chief Complaint Chief Complaint: Severe thrombocytopenia History of Present Illness History of Present Illness: The patient is a 23-year-old male with an unremarkable past medical history. Hepresented to the ED earlier this afternoon with complaints of bruising. Symptoms have been going on about a month. He was afebrile on presentation. Hesaid for the last month whenever he gets up in the morning he feels exhausted and has all over body aches. Often has to soak in a hot tub to start feeling better. He has been noticing unprovoked bruises all over for the last month. He has not had petechiae. Occasional gum bleeding when he brushes his teeth. No epistaxis or rectal bleeding. He has not had fevers or drenching night sweats. His appetite has been poor and he has lost about 10 to 15 pounds. He endorses that if he lies on his stomach, he develops abdominal pain. He has developed reflux symptoms in the last few days. No nausea or vomiting. He has not had black or bloody stools. CBC was notable for a platelet count of 24,000. Remainder of the CBC was unremarkable. Specifically total white count was 6500. Differential was unremarkable. Hemoglobin 15.5 g/dL with a hematocrit of 45.5% and an MCV of 91. Protime and INR as well as activated partial thromboplastin times were normal. Chemistries significant for creatinine of 1.0 mg/dL. BUN was 10. Total bilirubin was 0.9 mg/dL. LDH 209. Urinalysis demonstrated mild proteinuria with some urobilinogen quantitated at 1mg/dL. Patient had a little brother who was treated for acute leukemia at [facility] of years ago. He smokes marijuana on occasion. No tobacco use. Infrequent alcohol use. No tonic water. Lives on his own. Currently not working. Denies risk factors forHIV. Has not used injection drugs. Was treated for a right groin abscess in November of this year. Advanced Directives Power of Drupal Developer: No Living Will: No PFSH Medical History no medical history Allergy/AdvReac Type Severity Reaction Status Date / Time No Known Allergies Allergy Verified 05/21/23 17:27 Surgical History no surgical history Social History Smoking Status: Never smoker ROS Constitutional Constitutional: Reports fatigue, poor appetite and weight loss Cardiovascular Cardiovascular: Reports dyspnea on exertion Gastrointestinal Gastrointestinal: Reports other Details: Reflux Musculoskeletal Musculoskeletal: Reports other Details: Diffuse muscle aches. Integumentary Integumentary: Reports unusual bruising Hematologic/Lymphatic Hematologic/Lymphatic: Reports easy bruising Physical Exam Const alert, oriented x3 and no apparent distress General Appearance: cooperative HEENT HEENT Narrative: No oral mucosal or gingival bleeding noted. Eyes no scleral icterus Neck no lymphadenopathy Lymph Lymphatic: no lymphadenopathy noted Chest Chest Narrative: Bruising of right breast with palpable nodule--?hematoma. Resp normal respiratory effort Cardio regular rhythm GI soft to palpation and non-tender GI Narrative: No hepatomegaly or splenomegaly. Narrative: No testicular mass or nodule. Small mildly erythematous skin nodule left scrotum. Skin Skin Narrative: Large scattered ecchymoses in various stages of healing. No petechiae. Neuro no focal motor deficits Vital Signs Temperature 98 F 05/21/23 17:28 Temperature Source Temporal 05/21/23 17:28 Pulse Rate 87 05/21/23 17:28 Respiratory Rate 14 05/21/23 17:28 Blood Pressure 111/96 H 05/21/23 17:28 Blood Pressure Mean 101 05/21/23 17:28 Pulse Ox 98 05/21/23 17:28 Oxygen Delivery Method Room Air 05/21/23 17:28 Laboratory Results - last 24 hr 05/21/23 18:20: WBC 6.5, RBC 5.00, Hgb 15.5, Hct 45.5, MCV 91.0, MCH 31.0, MCHC 34.1, RDW Std Deviation 43.1, RDW Coeff of Nba 13.1, Plt Count 24 L*, MPV 13.5 H, Immature Gran % (Auto) 0.600, Neut % (Auto) 61.9, Lymph % (Auto) 31.0, [place] % (Auto) 5.7, Eos % (Auto) 0.5, Baso % (Auto) 0.3, Absolute Neuts (auto) 4.0, Absolute Lymphs (auto) 2.00, Nucleated RBC % 0, Differential Comment SCANNED, Diff Path Review February, PT 14.4, INR 1.1, APTT 30.7, Sodium 138, Potassium 4.1, Chloride 108 H, Carbon Dioxide 25.0, Anion Gap 5, BUN 10, Creatinine 1.00, Estim Creat Clear Calc 119.64, Est GFR (MDRD) Af Amer 120, Est GFR (MDRD) Non-Af99, BUN/Creatinine Ratio 10.0, Glucose 97, Calcium 9.1, Total Bilirubin 0.90, AST 14 L, ALT 42, Alkaline Phosphatase 40 L, Total Protein 7.4, Albumin 4.1, Globulin 3.3, Albumin/Globulin Ratio 1.2 05/21/23 18:56: Urine Color Yellow, Urine Clarity Clear, Urine pH 8.0, Ur Specific [place] 1.010, Urine Protein 15 H, Urine Glucose (UA) Normal, Urine Ketones Negative, Urine Occult Blood Negative, Urine Nitrite Negative, Urine Bilirubin Negative, Urine Urobilinogen 1 H, Ur Leukocyte Esterase Negative, Urine RBC 0 SEEN, Urine WBC 0 SEEN, Ur Squamous Epith Cells 0 SEEN, Urine Bacteria 0 SEEN, Urine Mucus 0 SEEN 05/21/23 20:00: Lactate Dehydrogenase 209 05/21/232058 <Electronically signed by Killian Elam DO> CC: No Primary Care Physician ~ Signed [facility] Work Phone: 1(525) 782-357802-21-2023 Miscellaneous Notes* Telephone Encounter - Linda Gold LPN - 12/04/2022 12:25 PM EST Pt notified of results and provider message. Pt reports phone numbers are correct. Lnida Gold LPN * Telephone Encounter - Myrna Almonte LPN - 12/04/2022 9:22 AM EST Still unable to reach patient.Myrna Almonte LPN * Telephone Encounter - Mary Adame - 12/03/2022 8:06 AM EST Unable to reach patient. Mailbox full/Mailbox not set up/ Number incorrect. Please try again later. Mary Adame * Telephone Encounter - Ashley Cui LPN - 12/02/2022 10:56 AM EST Tried home and mobile number, no answer, no voicemail available. Will need to call patient at another time. * Telephone Encounter - Scar Pisano APRN.CNP - 12/02/2022 10:06 AM EST Please notify that wound culture negative/no infection. Continue taking atb as ordered. F/u with pcp if s/s persist. Urgent f/u worsening s/s. documented in this encounterHolzer HospitalConsult note Author Brenda Rangel [facility] May 24, 2023 3:22pm Note Date/Time May 24, 2023 3: 22pm [facility] Medical Records Department [address] [place] [id number] Counseling Note - Pharmacy 05/24/23 1520 MR#: [id number] Acct: [id number] Name: ZANE BUITRAGO Rep #:[id number] : 2000 23 From: Brenda Rangel PCP: Care Physician,No Primary Status :ADM IN Location: [place] [address] Pharmacy [facility] has performed discharge medication reconciliation and counseling for this patient. 1. DEXAMETHASONE 40MG PO X1 (05/25/23) The patient's discharge medication list was reviewed for discrepancies and discrepancies were resolved. The patient was counseled on the following discharge medications and changes in medications for homegoing were reviewed. The Reason for Use, instructions for use, and potential side effects were reviewed for all new medications. The patient's questions regarding all of their medications were answered. The patient was able to verbally demonstrate an understanding of their dischargemedications. Patient counseled by pharmacy technician per diemRose. Medications at Discharge Home Medications dexamethasone 4 mg tablet 40 mg (10 x 4 mg) PO DAILY 1 day #10 tabs 05/24/23 05/24/23 1522 <Electronically signed by Brenda Rangel> Date _ Brenda Troncosoigner Signature (if applicable): Date CC: ~ Signed [facility] Work Phone: Discharge summary Author Kay Yoo [facility] May 24, 2023 2:57pm Note Date/Time May 24, 2023 2: 57pm [facility] Medical Records Department [address] [place] [address] Instructions for Home/Discharge Instructions 05/24/23 1456 MR#: [id number] Acct: [id number] Name: ZANE BUITRAGO Rep #:[id number] : 2000 23 From: Kay Yoo MD PCP: Care Physician,No Primary Status :ADM IN Discharge Instructions Diet Discharge Diet: No restrictions Activity Discharge Activity: Return to Normal Activity Dressing / Incision Call your doctor if you observe: Fever of 101 or Higher, Shortness of breath, Dizziness, Swelling in the ankles, Chest pain, Increased palpitations (irregularheartbeat) and - (easy bruising, prolonged bleeding) Follow Up Care Test Results: Test results from this visit will be discussed in further detail at your follow- up appointment, if applicable. Discharge Plan Admission Admit Date/Time: 05/22/23 01:20 Primary Reason for Your Visit: thrombocytopenia Attending Provider: Kay Yoo Primary Care Provider: Care Physician,No Primary Consulting Providers: Abhishek Dey; Fanta Heard; Radha Rice; Daniel Harris; Killian Elam; Karol Mari Instructions Patient Instructions: VANNESA WELLINGTON Bone Marrow Aspiration and Biopsy Discharge Orders/Prescriptions Prescriptions: New dexamethasone 4 mg Tablet 40 mg PO DAILY 1 Days Qty: 10 0RF Referrals / Follow Up: Killian Elam DO [Med Staff - Active Staff] - Within 1 Week (Dr Elam's office to call patient to get him in to the office on Saturday or Saturday next week ) Jason Gongora MD [Non-Staff] - Within 2 Weeks Care Physician,No Primary [Primary Care Provider] - Disposition Disposition (needs filled in before D/C Order can be placed): Home, Self Care 05/24/231456<Electronically signed by Kay Yoo MD>Kay Yoo MD CC: Dr. Karol Mari MD; Dr. Abhishek Dey MD; Dr. Fanta Heard MD; Dr. Radha Rice MD; Dr. Daniel Harris MD; Dr. Killian Elam DO; No Primary Care Physician ~ Signed [facility] Work Phone: Discharge summary Author [facility] May 24, 2023 3:39pm Note Date/Time May 24, 2023 3: 02pm [facility] Medical Records Department [address] [place] [address] Discharge Summary 05/24/231456 MR#: [id number] Acct: [id number] Name: ZANE BUITRAGO Rep #:[id number] : 2000 23 From: Kay Yoo MD PCP: Care Physician,No Primary Status :ADM IN Location: [place] [address] Providers Date of Admission: 05/22/23 Date of Discharge: 05/24/23 Primary Care Physician: No Primary Care Phys Consultations 05/22/23 06:02 Consult: Oncology/Hematology Routine Consulting Provider: [facility] [place] Reason for Consult: Acute Thrombocytopenia EMERGENT Consult: No MD Notified: Yes Date Notified: 05/22/23 Time Notified: 01:20 Method of Notification: ED Physician Initiated Reason For Visit: ACUTE THROMBOCYTOPENIA Diagnosis Discharge Diagnosis (1) Ecchymoses, spontaneous: Status: Acute Code(s): R23.3 - Spontaneous ecchymoses (2) Severe thrombocytopenia: Status: Acute Code(s): D69.6 - Thrombocytopenia, unspecified (3) Muscular aches: Status: Acute Code(s): M79.10 - Myalgia, unspecified site (4) Hypofibrinogenemia: Status: Acute Code(s): D68.8 - Other specified coagulation defects Plan #SEvere thrombocytopenia * platelets are up to 48 today, from 22 yesterday * has associated multiple ecchymotic bruises, and had some bleeding from his gums when brushing his teeth today * hematology on board; 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 * peripheral blood smear as reviewed by propagator laborer showed many elliptical rbcs and several schistocytes appreciate only towards the feathered edge, nad no pltelet clumping. * peripheral smear reviewd by pathologists who didnt see any schistocytes. * bilirubin and LDH were normal, and he now has low fibrinogen * Fibrinogen remains low, and D dimer is low also * HIV an HEp C tests ordered and negative. * awaiting transfer to tertiary facility for close monitoring and further workup as needed * had bone marrow biopsy done today. Received a unit of platelets before bone biopsy today. * on dexamethasone 40mg daily x 4 days. day is day 2. * # Chronic cannabinoid use: encouraged to quit DVT prophylaxis; SCDs.No anticoagulation in light of severe thrombocytopenia Medications at Discharge Home Medications dexamethasone 4 mg tablet 40 mg (10 x 4 mg) PO DAILY 1 day #10 tabs 05/24/23 Hospital Course Operations None Procedures - (bone marrow biopsy) Summary of Care Provided Minutes Spent on Discharge: 55 Hospital Course: Patient is a 23 y/o male with a PMH as outlined who was admitted via the ED on 05/22/2023 with a complaint of bruising, fatigue, malaise and weight loss as well as night sweats and easy and extensive bruising. He denied any recent illness orchange in meds. On admission, he was found to have platelets of 24, wbc of 6.5 and hemoglobin of 15.5. INR was normal. Peripheral blood smear showed many elliptical rbc's and several schistocytes only towards feathered edge. Patient was seen on the evening of admission by the propagator laborer. He was thought to haveITP though it could also be a possible evolving TTP. Recommendation was therefore for transfer to tertiary facility. [facility], and [facility]. Platelets trended down further to 22. LDH nd bilirubin were WNL, and he also had low fibrinogen. 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 Hematology requested for pathology to review the slides, which were negative for schistocytes. Hep C nd HIV tests were negative. Patient was started on dexamethasone 40mg daily. He hada bone marrow biopsy o/a of concerns about acute promyelocytic leukemia. Bone marrow biopsy showed normocellular marrow with trilineage hematopoiesis and megakaryocytic hyperplasia and dysplasia. There was no evidence of blasts. Patient was transfused a unit of platelets before he had the bone marrow biopsy. Platelets came up to 48 even before he was transfused a unit of platelets. On the day of discharge, platelets were up to 90. He was to be on the p.o. dexamethasone 40 mg daily for 4 days in total. He was therefore discharged on 05/24/2023 with a prescription for p.o. dexamethasone 40 mg for 1 day to completethe 4-day course. He is to follow-up with his primary care doctor within 1 weekand is to follow-up with hematology within [address] Elam, his office will call patient to have him scheduled to be seen on 05/27/2023 or 05/28/2023. Patient seen and examined prior to discharge. He felt better and had no complaints. He had an uneventful night and review of symptoms otherwise negative. Labs and vitals reviewed. Home medication reviewed and reconciled. Patient updated about his bone marrow biopsy results. Physical Exam Const alert, oriented x3 and no apparent distress General Appearance: cooperative, comfortable and well kempt HEENT normocephalic, head/scalp atraumatic, hearing grossly normal bilaterally, moist oral mucous membranes, oropharynx normal and gingiva normal Mouth: oral and palatal mucosa normal Eyes PERRL and EOMs intact bilaterally Neck no lymphadenopathy and supple Lymph Lymphatic: no lymphadenopathy noted and no lymphedema noted Resp normal respiratory effort, normal air movement and clear to auscultation bilaterally Cardio regular rate, regular rhythm, S1 normal heart sound, S2 normal heart sound and no murmurs GI normal to inspection, nondistended, normoactive bowel sounds, soft to palpation,non-tender and non-distended Extremity normal capillary refill, no clubbing, cyanosis or edema and no calf tenderness Skin Skin Narrative: multiple bruises over torso, back and arms as well as legs have improved markedly Neuro oriented x3, CN's II-XII intact bilaterally, moves all extremities, no focal motor deficits, no sensory deficits noted and deep tendon reflexes 2+ bilaterally Sensorium / Orientation: awake and alert Motor Exam: strength 5/5 throughout Psych thought process normal, cooperative and affect normal Appearance: appropriate Medical Records Data Medical Nutrition Assessment Dietitian: Malnutrition Criteria Met Start: 05/22/23 13:29 Freq: Status: Active Protocol: Document 05/22/23 13:29 RMA (Rec: 05/22/23 13:29 RMA [id number]) Nutrition Malnutrition Evidence of Malnutrition Exists Yes Malnutrition (severe): Acute Illness/Injury Evidenced By Suboptimal Energy Intake ( Severe),Weight Loss (Severe) Clinical Problem Acute Disease or Injury Related Malnutrition Etiology Severe protein-calorie malnutrition in the context of acute illness related to inadequate oral/energy/protein intake Signs/Symptoms as evidenced by ~21% weight loss x 1 year and PO meeting less than 50% estimated nutrition needs x past 6 months Status Active Problem Recommendation Dietitian Recommendations/Changes Continue Regular Diet as ordered. Will continue 120mL ensure plus high protein 3 times per day w/ medpass as ordered. Will add extra 2 oz meat/ protein Q meal tray and milkshakes w/ meals per pt request. Weight / BMI Weight Weight: 170 lb 6.677 oz Body Mass Index (BMI) 24.3 ABG / Lab / Microbiology Data 05/24/23 05:55 05/24/23 05:55 Laboratory: Laboratory Results - last 24 hr 05/22/23 06:35: Thrombin Time 20.6, HCV RNA Quant (PCR) HCV Not Detected, HCV RNA (PCR) IU log10 TNP, HCV RNA PCR Test Info Comment 05/24/23 05:55: WBC 12.2 H, RBC 4.61, Hgb 14.3, Hct 42.0, MCV 91.1, MCH 31.0, MCHC 34.0, RDW Std Deviation 42.6, RDW Coeff of Nba 12.9, Plt Count 90 L, MPV 12.2 H, Immature Gran % (Auto) 0.700, Neut % (Auto) 83.7 H, Lymph % (Auto) 10.1 L, [place] % (Auto) 5.4, Eos % (Auto) 0.0, Baso % (Auto) 0.1, Absolute Neuts (auto)10.2 H, Absolute Lymphs (auto) 1.23, Nucleated RBC % 0, Platelet Estimate MOD DEC, Sodium 139, Potassium 3.9, Chloride 108 H, Carbon Dioxide 25.0, Anion Gap 6, BUN 21 H, Creatinine 0.91, Estim Creat Clear Calc 131.47, Est GFR (MDRD) Af Amer 134, Est GFR (MDRD) Non-Af 111, BUN/Creatinine Ratio 23.2 H, Glucose 134 H,Calcium 8.7 D/C Instructions Discharge Diet: No restrictions Discharge Activity: Return to Normal Activity Weight Bearing Status: Weight bearing as tolerated Call your doctor if you observe: Fever of 101 or Higher, Shortness of breath, Dizziness, Swelling in the ankles, Chest pain, Increased palpitations (irregularheartbeat) and - (easy bruising, prolonged bleeding) Meaningful Use Info Meaningful Use Diagnoses (Choose all that apply): None applicable Discharge Plan Admission Admit Date/Time: 05/22/23 01:20 Primary Reason for Your Visit: thrombocytopenia Attending Provider: Kay Yoo Primary Care Provider: Care Physician,No Primary Consulting Providers: Abhishek Dey; Fanta Heard; Radha Rice; Daniel Harris; Killian Elam; Karol Mari Instructions Patient Instructions: VANNESA RN Bone Marrow Aspiration and Biopsy Discharge Orders/Prescriptions Prescriptions: New dexamethasone 4 mg Tablet 40 mg PO DAILY 1 Days Qty: 10 0RF Referrals / Follow Up: Killian Elam DO [Med Staff - Active Staff] - 05/27/23 8:30 am (Go to [facility] have lab work drawn, will have standing orders there. Once lab work is done, then go to oncology to check in. ) Jason Gongora MD [Non-Staff] - Within 2 Weeks Care Physician,No Primary [Primary Care Provider] - Disposition Disposition (needs filled in before D/C Order can be placed): Home, Self Care Charges/Coding Visit Charges Inpatient E&M: 89161 Disch Hosp >30min 05/24/23 1539 <Electronically signed by Kay Yoo MD> Cosigner Signature (if applicable): CC: Dr. Kay Yoo MD; No Primary Care Physician~ Signed [facility] Work Phone: Evaluation note* Diagnosis Onset Date Resolution Status Ecchymoses, spontaneous acut e Malaise acute Muscular aches acute Severe thrombocytopenia acut e [facility] Work Phone: Evaluation note* Diagnosis Onset Date Resolution Status Ecchymoses, spontaneous acut e Hypofibrinogenemia acute Malaise acute Muscular aches acute Severe thrombocytopenia [facility] Work Phone: Evaluation note* Diagnosis Chronic ITP (idiopathic thrombocytopenia) (HCC) Immune thrombocytopenic purpura [facility] [place] [facility] Diagnosis Acute ITP (HCC)- Primary 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 [facility] [place] [facility] Diagnosis Acute ITP (HCC)- Primary 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 [facility] [place] [facility] Diagnosis Acute ITP (HCC)- Primary Immune thrombocytopenic purpura [facility] [place] [facility]* Diagnosis 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 [facility] [place] [facility]* Diagnosis Acute ITP (HCC)- Primary 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 [facility] [place] [facility]* Diagnosis Acute ITP (HCC)- Primary Immune thrombocytopenic purpura Muscle soreness Mylagia and myositis, unspecified Splenomegaly [facility] [place] [facility]* Diagnosis Acute ITP (HCC)- Primary Immune thrombocytopenic purpura [facility] [place] [facility] Diagnosis Acute ITP (HCC)- Primary Immune thrombocytopenic purpura [facility] [place] [facility]* Diagnosis Acute ITP (HCC) Immune thrombocytopenic purpura [facility] [place] [facility]* Diagnosis Acute ITP (HCC)- Primary 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 [facility] [place] [facility]* Diagnosis NO SHOW- Primary [facility] [place] [facility] Diagnosis NO SHOW- Primary [facility] [place] [facility]* Diagnosis Acute ITP (HCC)- Primary Immune thrombocytopenic purpura [facility] Diagnosis Acute ITP (HCC) 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 [facility] [place] [facility]* Diagnosis Acute ITP (HCC)- Primary Immune thrombocytopenic purpura [facility] [place] [facility] Diagnosis Chronic ITP (idiopathic thrombocytopenia) (HCC) Immune thrombocytopenic purpura [facility] [place] [facility]* Diagnosis Chronic ITP (idiopathic thrombocytopenia) (HCC)- Primary Immune thrombocytopenic purpura [facility] [place] [facility]* Diagnosis Chronic ITP (idiopathic thrombocytopenia) (HCC)- Primary Immune thrombocytopenic purpura [facility] [place] [facility]* Diagnosis Chronic ITP (idiopathic thrombocytopenia) (HCC)- Primary Immune thrombocytopenic purpura [facility] [place] noteNo assessment information [facility]WLake [facility] Work Phone: Evaluation note* Diagnosis Chronic ITP (idiopathic thrombocytopenia) (HCC)- Primary Immune thrombocytopenic purpura [facility] [place] [facility]* Diagnosis Chronic ITP (idiopathic thrombocytopenia) (HCC)- Primary 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 [facility] [place] [facility]* Diagnosis Chronic ITP (idiopathic thrombocytopenia) (HCC)- Primary Immune thrombocytopenic purpura [facility] [place] [facility]* Diagnosis Chronic ITP (idiopathic thrombocytopenia) (HCC)- Primary Immune thrombocytopenic purpura documented [facility] [place] [facility]* Diagnosis Chronic ITP (idiopathic thrombocytopenia) (HCC)- Primary Immune thrombocytopenic purpura documented [facility] [place] [facility]* Diagnosis Acute ITP (HCC)- Primary Immune thrombocytopenic purpura [facility] [place] [facility]* Diagnosis Chronic ITP (idiopathic thrombocytopenia) (HCC)- Primary Immune thrombocytopenic purpura Acute ITP (HCC) Immune thrombocytopenic purpura [facility] [place] [facility]* Diagnosis Chronic ITP (idiopathic thrombocytopenia) (HCC)- Primary Immune thrombocytopenic purpura [facility] [place] [facility]* Diagnosis Chronic ITP (idiopathic thrombocytopenia) (HCC) Immune thrombocytopenic purpura [facility]* Diagnosis Chronic ITP (idiopathic thrombocytopenia) (HCC)- Primary Immune thrombocytopenic purpura [facility] [place] [facility]* Diagnosis Acute ITP (HCC)- Primary Immune thrombocytopenic purpura [facility] [place] [facility]* Diagnosis Chronic ITP (idiopathic thrombocytopenia) (HCC)- Primary Immune thrombocytopenic purpura [facility] [place] [facility]* Diagnosis Acute ITP (HCC)- Primary Immune thrombocytopenic purpura [facility] [place] [facility]* Diagnosis Chronic ITP (idiopathic thrombocytopenia) (HCC)- Primary Immune thrombocytopenic purpura [facility] [place] [facility]* Diagnosis Chronic ITP (idiopathic thrombocytopenia) (HCC) Immune thrombocytopenic purpura documented in this encounter [facility] note* Diagnosis Chronic ITP (idiopathic thrombocytopenia) (HCC)- Primary Immune thrombocytopenic purpura [facility] [place] [facility]* Diagnosis Encounter for medical examination to establish care- Primary Anxiety with depression Chronic ITP (idiopathic thrombocytopenia) (HCC) Immune thrombocytopenic purpura Tinea versicolor Pityriasis versicolor [facility] [place] [facility]* Diagnosis Chronic ITP (idiopathic thrombocytopenia) (HCC)- Primary Immune thrombocytopenic purpura documented in this encounter [facility] note* Diagnosis Vitamin D deficiency- Primary Unspecified vitamin D deficiency Hypokalemia Hypopotassemia documented in this encounter [facility] Discharge instructions Additional Instructions Please take the prednisone that was prescribed. Return for any worsening of your symptoms. Follow-up with Dr. Elam.[facility] Work Phone: Reason for referral (narrative)* Diagnostic Procedure Only (Routine) - Pending Review Specialty Diagnoses / Procedures Referred By Raj gale Referred To Contact US IMAGING Diagnoses Acute ITP (HCC) Hypofibrinogenemia (HCC) Procedures US ABD RIGHT UPPER QUADRANT US ABDOMINAL REAL TIME W/IMAGE LIMITED Killian Ealm DO [address] [place] [address] [place] [address] Referral ID Status Reason Start Date Expiration Date Visits Requested Visits Authorized [id number] Pending Review Auto-Generat ed Referral 05/27/2023 06/25/2024 1 1 [facility] Chief Complaint and Reason for Visit Chief Complaint BRUISING ACUTE THROMBOCYTOPENIA Reason for Visit Ecchymoses, spontane ous Malaise Muscular aches Severe thrombocytopenia Chief Complaint BRUISING ACUTE THROMBOCYTOPENIA ACUTE THROMBOCYTOPENIA ACUTE THROMBOCYTOPENIA Reason for Visit Ecchymoses, spontane ous Hypofibrinogenemia Malaise Muscular aches Severe thrombocytopenia Chief Complaint general illness Chief Complaint general illness ALVARADO Advance Directives No Advanced Directives Records Found Advance Directive Response Recorded Date/ Time Living Will No May 21, 2023 8:38pm Power of Drupal Developer No May 21 8:38pm Advance Directive Response Recorded Date/ Time Living Will No May 22, 2023 6:14am Power of Drupal Developer No May 22 6:14am Advance Directive Response Recorded Date/ Time Living Will No December 06 10:43am Power of Drupal Developer No December 06, 2023 10:43am Advance Directive Response Recorded Date/ Time Living Will No December 28, 2023 9:10am Power of Drupal Developer No December 27 9:10am Summary Purpose Family History No Family History Records Found Reason for Referral Specialty Diagnoses / Procedures Referred By Contac t Referred To Contact Diagnoses Acute ITP (HCC) Hypofibrinogenemia (HCC) Procedures CONSULT TO HEMATOLOGY/ONCOLOGY OFFICE/OUTPATIENT [facility] MDM 60-74 MINUTES Killian Elam DO [address] [place] [address] Referral ID Status Reason Start Date Expiration Date Visits Requested Visits Authorized [id number] Pending Review PCP Requested Referral 05/27/2023 05/26/2024 1 1 Specialty Diagnoses / Procedures Referred By Contac t Referred To Contact US IMAGING Diagnoses Acute ITP (HCC) Hypofibrinogenemia (HCC) Procedures US ABD RIGHT UPPER QUADRANT US ABDOMINAL REAL TIME W/IMAGE LIMITED Killian Elam DO [address] [facility] [place] [address] Us Imaging Referral ID Status Reason Start Date Expiration Date Visits Requested Visits Authorized [id number] Pending Review Auto-Generat ed Referral 05/27/2023 06/25/2024 1 1 Medications Administered Section Inactive Administered Medications - up to 3 most recent administrations Medication Order MAR Action Action Date Dose Rate Site acetaminophen 650 mg tab(s) (TYLENOL) 650 mg, ORAL, ONCE, 1 dose, On Sat06/26/23 at 1000, No more than 4000 mg of acetaminophen should be given per day (FROM ALL SOURCES), If ordered PRN for pain, patient/guardian may elect to receive this medication for higher pain levels INSTEAD of the opioid, if preferred: N/A Given 06/26/2023 10:05 AM EDT 650 mg diphenhydrAMINE 25 mg (BENADRYL) 25 mg, ORAL, ONCE, 1 dose, On Sat06/26/23 at 1000 Given 06/26/2023 10:05 AM EDT 25 mg immune globulin (human) (IgG) 20 g in empty bag Total Volume 200 mL (GAMMAGARD) 20 g, INTRAVENOUS, ONCE, 1 dose, On Sat06/26/23 at 1030, Refrigerate - Prepared as a 10% solution - Brand: Lot: Total Volume., Infusion regimen: Standard, Starting rate (mL/kg/hr): 0.5 mL/kg/hr, Rate after 30 min (mL/kg/hr): 1 mL/kg/hr, Titration rate/max: May increase by 1 mL/kg/hr every 30 minutes thereafter to a maximum of 5 mL/kg/hr Rate/Dose Change 06/26/2023 12:16 PM EDT 219 mL/hr Rate/Dose Change 06/26/2023 11:46 AM EDT 146 mL /hr Rate/Dose Change 06/26/2023 11:16 AM EDT 73 mL/ hr immune globulin (human) (IgG) 50 g in empty bag Total Volume 500 mL (GAMMAGARD) 50 g, INTRAVENOUS, ONCE, 1 dose, On Sat06/26/23 at 1030, Total 70 gm today Refrigerate - Prepared as a 10% solution - Brand: Lot: Total Volume., Infusion regimen: Standard, Starting rate (mL/kg/hr): 0.5 mL/kg/hr, Rate after 30 min (mL/kg/hr): 1 mL/kg/hr, Titration rate/max: May increase by 1 mL/kg/hr every 30 minutes thereafter to a maximum of 5 mL/kg/hr Rate/Dose Change 06/26/2023 1:16 PM EDT 473 mL/hr Rate/Dose Change 06/26/2023 12:46 PM EDT 292 mL /hr New Bag/Syringe/Bottle 06/26/2023 12:42 PM EDT 50 g Inactive Administered Medications - up to 3 most recent administrations Medication Order MAR Action Action Date Dose Rate Site acetaminophen 650 mg tab(s) (TYLENOL) 650 mg, ORAL, ONCE, 1 dose, On [place] 06/27/23 at 0830, No more than 4000 mg of acetaminophen should be given per day (FROM ALL SOURCES), If ordered PRN for pain, patient/guardian may elect to receive this medication for higher pain levels INSTEAD of the opioid, if preferred: N/A Given 06/27/2023 8:21 AM EDT 650 mg diphenhydrAMINE 25 mg (BENADRYL) 25 mg, ORAL, ONCE, 1 dose, On [place] 06/27/23 at 0830 Given 06/27/2023 8:21 AM EDT 25 mg immune globulin (human) (IgG) 20 g in empty bag Total Volume 200 mL (GAMMAGARD) 20 g, INTRAVENOUS, ONCE, 1 dose, On [facility] 06/27/23 at 0830, Total 70 g today Refrigerate - Prepared as a 10% solution - Brand: Lot: Total Volume., Infusion regimen: Standard, Starting rate (mL/kg/hr): 0.5 mL/kg/hr, Rate after 30 min (mL/kg/hr): 1 mL/kg/hr, Titration rate/max: May increase by 1 mL/kg/hr every 30 minutes thereafter to a maximum of 5 mL/kg/hr Rate/Dose Change 06/27/2023 10:04 AM EDT 228 mL/hr Rate/Dose Change 06/27/2023 9:34 AM EDT 152 mL/ hr Rate/Dose Change 06/27/2023 9:04 AM EDT 76 mL/h r immune globulin (human) (IgG) 50 g in empty bag Total Volume 500 mL (GAMMAGARD) 50 g, INTRAVENOUS, ONCE, 1 dose, On [place] 06/27/23 at 0830, Total 70 g today Refrigerate - Prepared as a 10% solution - Brand: Lot: Total Volume., Infusion regimen: Standard, Starting rate (mL/kg/hr): 0.5 mL/kg/hr, Rate after 30 min (mL/kg/hr): 1 mL/kg/hr, Titration rate/max: May increase by 1 mL/kg/hr every 30 minutes thereafter to a maximum of 5 mL/kg/hr Rate/Dose Change 06/27/2023 11:06 AM EDT 380 mL/hr Rate/Dose Change 06/27/2023 10:36 AM EDT 304 mL /hr New Bag/Syringe/Bottle 06/27/2023 10:19 AM EDT 50 g Additional Source Comments Source Comments (unrecognize d section and content) In the event this informatio n is protected by the Federal Confidentiality of Alcohol and Drug Abuse Patient Records regulations: The Federal rules restrict any use of the information to criminally investigate or prosecute any alcohol or drug abuse patient.[facility] the event this information is protected by the Federal Confidentiality of Alcohol and Drug Abuse Patient Records regulations: The Federal rules restrict any use of the information to criminally investigate or prosecute any alcohol or drug abuse patient.[facility] HospitalIn the event this information is protected by the Federal Confidentiality of Alcohol and Drug Abuse Patient Records regulations: The Federal rules restrict any use of the information to criminally investigate or prosecute any alcohol or drug abuse patient.[facility] HospitalIn the event this information is protected by the Federal Confidentiality of Alcohol and Drug Abuse Patient Records regulations: The Federal rules restrict any use of the information to criminally investigate or prosecute any alcohol or drug abuse patient.[facility] HospitalIn the event this information is protected by the Federal Confidentiality of Alcohol and Drug Abuse Patient Records regulations: The Federal rules restrict any use of the information to criminally investigate or prosecute any alcohol or drug abuse patient.[facility] HospitalIn the event this information is protected by the Federal Confidentiality of Alcohol and Drug Abuse Patient Records regulations: The Federal rules restrict any use of the information to criminally investigate or prosecute any alcohol or drug abuse patient.[facility] HospitalIn the event this information is protected by the Federal Confidentiality of Alcohol and Drug Abuse Patient Records regulations: The Federal rules restrict any use of the information to criminally investigate or prosecute any alcohol or drug abuse patient.[facility] HospitalIn the event this information is protected by the Federal Confidentiality of Alcohol and Drug Abuse Patient Records regulations: The Federal rules restrict any use of the information to criminally investigate or prosecute any alcohol or drug abuse patient.[facility] HospitalIn the event this information is protected by the Federal Confidentiality of Alcohol and Drug Abuse Patient Records regulations: The Federal rules restrict any use of the information to criminally investigate or prosecute any alcohol or drug abuse patient.[facility] HospitalIn the event this information is protected by the Federal Confidentiality of Alcohol and Drug Abuse Patient Records regulations: The Federal rules restrict any use of the information to criminally investigate or prosecute any alcohol or drug abuse patient.[facility] HospitalIn the event this information is protected by the Federal Confidentiality of Alcohol and Drug Abuse Patient Records regulations: The Federal rules restrict any use of the information to criminally investigate or prosecute any alcohol or drug abuse patient.[facility] HospitalIn the event this information is protected by the Federal Confidentiality of Alcohol and Drug Abuse Patient Records regulations: The Federal rules restrict any use of the information to criminally investigate or prosecute any alcohol or drug abuse patient.[facility] HospitalIn the event this information is protected by the Federal Confidentiality of Alcohol and Drug Abuse Patient Records regulations: The Federal rules restrict any use of the information to criminally investigate or prosecute any alcohol or drug abuse patient.[facility] HospitalIn the event this information is protected by the Federal Confidentiality of Alcohol and Drug Abuse Patient Records regulations: The Federal rules restrict any use of the information to criminally investigate or prosecute any alcohol or drug abuse patient.[facility] HospitalIn the event this information is protected by the Federal Confidentiality of Alcohol and Drug Abuse Patient Records regulations: The Federal rules restrict any use of the information to criminally investigate or prosecute any alcohol or drug abuse patient.[facility] HospitalIn the event this information is protected by the Federal Confidentiality of Alcohol and Drug Abuse Patient Records regulations: The Federal rules restrict any use of the information to criminally investigate or prosecute any alcohol or drug abuse patient.[facility] HospitalIn the event this information is protected by the Federal Confidentiality of Alcohol and Drug Abuse Patient Records regulations: The Federal rules restrict any use of the information to criminally investigate or prosecute any alcohol or drug abuse patient.[facility] HospitalIn the event this information is protected by the Federal Confidentiality of Alcohol and Drug Abuse Patient Records regulations: The Federal rules restrict any use of the information to criminally investigate or prosecute any alcohol or drug abuse patient.[facility] HospitalIn the event this information is protected by the Federal Confidentiality of Alcohol and Drug Abuse Patient Records regulations: The Federal rules restrict any use of the information to criminally investigate or prosecute any alcohol or drug abuse patient.[facility] HospitalIn the event this information is protected by the Federal Confidentiality of Alcohol and Drug Abuse Patient Records regulations: The Federal rules restrict any use of the information to criminally investigate or prosecute any alcohol or drug abuse patient.[facility] HospitalIn the event this information is protected by the Federal Confidentiality of Alcohol and Drug Abuse Patient Records regulations: The Federal rules restrict any use of the information to criminally investigate or prosecute any alcohol or drug abuse patient.[facility] HospitalIn the event this information is protected by the Federal Confidentiality of Alcohol and Drug Abuse Patient Records regulations: The Federal rules restrict any use of the information to criminally investigate or prosecute any alcohol or drug abuse patient.[facility] HospitalIn the event this information is protected by the Federal Confidentiality of Alcohol and Drug Abuse Patient Records regulations: The Federal rules restrict any use of the information to criminally investigate or prosecute any alcohol or drug abuse patient.[facility] HospitalIn the event this information is protected by the Federal Confidentiality of Alcohol and Drug Abuse Patient Records regulations: The Federal rules restrict any use of the information to criminally investigate or prosecute any alcohol or drug abuse patient.[facility] HospitalIn the event this information is protected by the Federal Confidentiality of Alcohol and Drug Abuse Patient Records regulations: The Federal rules restrict any use of the information to criminally investigate or prosecute any alcohol or drug abuse patient.[facility] HospitalIn the event this information is protected by the Federal Confidentiality of Alcohol and Drug Abuse Patient Records regulations: The Federal rules restrict any use of the information to criminally investigate or prosecute any alcohol or drug abuse patient.[facility] HospitalIn the event this information is protected by the Federal Confidentiality of Alcohol and Drug Abuse Patient Records regulations: The Federal rules restrict any use of the information to criminally investigate or prosecute any alcohol or drug abuse patient.[facility] HospitalIn the event this information is protected by the Federal Confidentiality of Alcohol and Drug Abuse Patient Records regulations: The Federal rules restrict any use of the information to criminally investigate or prosecute any alcohol or drug abuse patient.[facility] HospitalIn the event this information is protected by the Federal Confidentiality of Alcohol and Drug Abuse Patient Records regulations: The Federal rules restrict any use of the information to criminally investigate or prosecute any alcohol or drug abuse patient.[facility] HospitalIn the event this information is protected by the Federal Confidentiality of Alcohol and Drug Abuse Patient Records regulations: The Federal rules restrict any use of the information to criminally investigate or prosecute any alcohol or drug abuse patient.[facility] HospitalIn the event this information is protected by the Federal Confidentiality of Alcohol and Drug Abuse Patient Records regulations: The Federal rules restrict any use of the information to criminally investigate or prosecute any alcohol or drug abuse patient.[facility] HospitalIn the event this information is protected by the Federal Confidentiality of Alcohol and Drug Abuse Patient Records regulations: The Federal rules restrict any use of the information to criminally investigate or prosecute any alcohol or drug abuse patient.[facility] HospitalIn the event this information is protected by the Federal Confidentiality of Alcohol and Drug Abuse Patient Records regulations: The Federal rules restrict any use of the information to criminally investigate or prosecute any alcohol or drug abuse patient.[facility] HospitalIn the event this information is protected by the Federal Confidentiality of Alcohol and Drug Abuse Patient Records regulations: The Federal rules restrict any use of the information to criminally investigate or prosecute any alcohol or drug abuse patient.[facility] HospitalIn the event this information is protected by the Federal Confidentiality of Alcohol and Drug Abuse Patient Records regulations: The Federal rules restrict any use of the information to criminally investigate or prosecute any alcohol or drug abuse patient.[facility] HospitalIn the event this information is protected by the Federal Confidentiality of Alcohol and Drug Abuse Patient Records regulations: The Federal rules restrict any use of the information to criminally investigate or prosecute any alcohol or drug abuse patient.[facility] HospitalIn the event this information is protected by the Federal Confidentiality of Alcohol and Drug Abuse Patient Records regulations: The Federal rules restrict any use of the information to criminally investigate or prosecute any alcohol or drug abuse patient.[facility] HospitalIn the event this information is protected by the Federal Confidentiality of Alcohol and Drug Abuse Patient Records regulations: The Federal rules restrict any use of the information to criminally investigate or prosecute any alcohol or drug abuse patient.[facility] HospitalIn the event this information is protected by the Federal Confidentiality of Alcohol and Drug Abuse Patient Records regulations: The Federal rules restrict any use of the information to criminally investigate or prosecute any alcohol or drug abuse patient.[facility] HospitalIn the event this information is protected by the Federal Confidentiality of Alcohol and Drug Abuse Patient Records regulations: The Federal rules restrict any use of the information to criminally investigate or prosecute any alcohol or drug abuse patient.[facility] HospitalIn the event this information is protected by the Federal Confidentiality of Alcohol and Drug Abuse Patient Records regulations: The Federal rules restrict any use of the information to criminally investigate or prosecute any alcohol or drug abuse patient.[facility] HospitalIn the event this information is protected by the Federal Confidentiality of Alcohol and Drug Abuse Patient Records regulations: The Federal rules restrict any use of the information to criminally investigate or prosecute any alcohol or drug abuse patient.[facility] HospitalIn the event this information is protected by the Federal Confidentiality of Alcohol and Drug Abuse Patient Records regulations: The Federal rules restrict any use of the information to criminally investigate or prosecute any alcohol or drug abuse patient.[facility] HospitalIn the event this information is protected by the Federal Confidentiality of Alcohol and Drug Abuse Patient Records regulations: The Federal rules restrict any use of the information to criminally investigate or prosecute any alcohol or drug abuse patient.[facility] HospitalIn the event this information is protected by the Federal Confidentiality of Alcohol and Drug Abuse Patient Records regulations: The Federal rules restrict any use of the information to criminally investigate or prosecute any alcohol or drug abuse patient.[facility] HospitalIn the event this information is protected by the Federal Confidentiality of Alcohol and Drug Abuse Patient Records regulations: The Federal rules restrict any use of the information to criminally investigate or prosecute any alcohol or drug abuse patient.[facility] HospitalIn the event this information is protected by the Federal Confidentiality of Alcohol and Drug Abuse Patient Records regulations: The Federal rules restrict any use of the information to criminally investigate or prosecute any alcohol or drug abuse patient.[facility] HospitalIn the event this information is protected by the Federal Confidentiality of Alcohol and Drug Abuse Patient Records regulations: The Federal rules restrict any use of the information to criminally investigate or prosecute any alcohol or drug abuse patient.[facility] HospitalIn the event this information is protected by the Federal Confidentiality of Alcohol and Drug Abuse Patient Records regulations: The Federal rules restrict any use of the information to criminally investigate or prosecute any alcohol or drug abuse patient.[facility] HospitalIn the event this information is protected by the Federal Confidentiality of Alcohol and Drug Abuse Patient Records regulations: The Federal rules restrict any use of the information to criminally investigate or prosecute any alcohol or drug abuse patient.[facility] HospitalIn the event this information is protected by the Federal Confidentiality of Alcohol and Drug Abuse Patient Records regulations: The Federal rules restrict any use of the information to criminally investigate or prosecute any alcohol or drug abuse patient.[facility] HospitalIn the event this information is protected by the Federal Confidentiality of Alcohol and Drug Abuse Patient Records regulations: The Federal rules restrict any use of the information to criminally investigate or prosecute any alcohol or drug abuse patient.[facility] HospitalIn the event this information is protected by the Federal Confidentiality of Alcohol and Drug Abuse Patient Records regulations: The Federal rules restrict any use of the information to criminally investigate or prosecute any alcohol or drug abuse patient.[facility] HospitalIn the event this information is protected by the Federal Confidentiality of Alcohol and Drug Abuse Patient Records regulations: The Federal rules restrict any use of the information to criminally investigate or prosecute any alcohol or drug abuse patient.[facility] HospitalIn the event this information is protected by the Federal Confidentiality of Alcohol and Drug Abuse Patient Records regulations: The Federal rules restrict any use of the information to criminally investigate or prosecute any alcohol or drug abuse patient.[facility] HospitalIn the event this information is protected by the Federal Confidentiality of Alcohol and Drug Abuse Patient Records regulations: The Federal rules restrict any use of the information to criminally investigate or prosecute any alcohol or drug abuse patient.[facility] HospitalIn the event this information is protected by the Federal Confidentiality of Alcohol and Drug Abuse Patient Records regulations: The Federal rules restrict any use of the information to criminally investigate or prosecute any alcohol or drug abuse patient.[facility] HospitalIn the event this information is protected by the Federal Confidentiality of Alcohol and Drug Abuse Patient Records regulations: The Federal rules restrict any use of the information to criminally investigate or prosecute any alcohol or drug abuse patient.[facility] HospitalIn the event this information is protected by the Federal Confidentiality of Alcohol and Drug Abuse Patient Records regulations: The Federal rules restrict any use of the information to criminally investigate or prosecute any alcohol or drug abuse patient.[facility] HospitalIn the event this information is protected by the Federal Confidentiality of Alcohol and Drug Abuse Patient Records regulations: The Federal rules restrict any use of the information to criminally investigate or prosecute any alcohol or drug abuse patient.[facility] HospitalIn the event this information is protected by the Federal Confidentiality of Alcohol and Drug Abuse Patient Records regulations: The Federal rules restrict any use of the information to criminally investigate or prosecute any alcohol or drug abuse patient.[facility] HospitalIn the event this information is protected by the Federal Confidentiality of Alcohol and Drug Abuse Patient Records regulations: The Federal rules restrict any use of the information to criminally investigate or prosecute any alcohol or drug abuse patient.[facility] HospitalIn the event this information is protected by the Federal Confidentiality of Alcohol and Drug Abuse Patient Records regulations: The Federal rules restrict any use of the information to criminally investigate or prosecute any alcohol or drug abuse patient.[facility] HospitalIn the event this information is protected by the Federal Confidentiality of Alcohol and Drug Abuse Patient Records regulations: The Federal rules restrict any use of the information to criminally investigate or prosecute any alcohol or drug abuse patient.[facility] HospitalIn the event this information is protected by the Federal Confidentiality of Alcohol and Drug Abuse Patient Records regulations: The Federal rules restrict any use of the information to criminally investigate or prosecute any alcohol or drug abuse patient.[facility] HospitalIn the event this information is protected by the Federal Confidentiality of Alcohol and Drug Abuse Patient Records regulations: The Federal rules restrict any use of the information to criminally investigate or prosecute any alcohol or drug abuse patient.[facility] HospitalIn the event this information is protected by the Federal Confidentiality of Alcohol and Drug Abuse Patient Records regulations: The Federal rules restrict any use of the information to criminally investigate or prosecute any alcohol or drug abuse patient.[facility] HospitalIn the event this information is protected by the Federal Confidentiality of Alcohol and Drug Abuse Patient Records regulations: The Federal rules restrict any use of the information to criminally investigate or prosecute any alcohol or drug abuse patient.[facility] HospitalIn the event this information is protected by the Federal Confidentiality of Alcohol and Drug Abuse Patient Records regulations: The Federal rules restrict any use of the information to criminally investigate or prosecute any alcohol or drug abuse patient.[facility] HospitalIn the event this information is protected by the Federal Confidentiality of Alcohol and Drug Abuse Patient Records regulations: The Federal rules restrict any use of the information to criminally investigate or prosecute any alcohol or drug abuse patient.[facility] HospitalIn the event this information is protected by the Federal Confidentiality of Alcohol and Drug Abuse Patient Records regulations: The Federal rules restrict any use of the information to criminally investigate or prosecute any alcohol or drug abuse patient.[facility] HospitalIn the event this information is protected by the Federal Confidentiality of Alcohol and Drug Abuse Patient Records regulations: The Federal rules restrict any use of the information to criminally investigate or prosecute any alcohol or drug abuse patient.[facility] HospitalIn the event this information is protected by the Federal Confidentiality of Alcohol and Drug Abuse Patient Records regulations: The Federal rules restrict any use of the information to criminally investigate or prosecute any alcohol or drug abuse patient.[facility] HospitalIn the event this information is protected by the Federal Confidentiality of Alcohol and Drug Abuse Patient Records regulations: The Federal rules restrict any use of the information to criminally investigate or prosecute any alcohol or drug abuse patient.[facility] HospitalIn the event this information is protected by the Federal Confidentiality of Alcohol and Drug Abuse Patient Records regulations: The Federal rules restrict any use of the information to criminally investigate or prosecute any alcohol or drug abuse patient.[facility] HospitalIn the event this information is protected by the Federal Confidentiality of Alcohol and Drug Abuse Patient Records regulations: The Federal rules restrict any use of the information to criminally investigate or prosecute any alcohol or drug abuse patient.[facility] HospitalIn the event this information is protected by the Federal Confidentiality of Alcohol and Drug Abuse Patient Records regulations: The Federal rules restrict any use of the information to criminally investigate or prosecute any alcohol or drug abuse patient.[facility] HospitalIn the event this information is protected by the Federal Confidentiality of Alcohol and Drug Abuse Patient Records regulations: The Federal rules restrict any use of the information to criminally investigate or prosecute any alcohol or drug abuse patient.[facility] HospitalIn the event this information is protected by the Federal Confidentiality of Alcohol and Drug Abuse Patient Records regulations: The Federal rules restrict any use of the information to criminally investigate or prosecute any alcohol or drug abuse patient.[facility] HospitalIn the event this information is protected by the Federal Confidentiality of Alcohol and Drug Abuse Patient Records regulations: The Federal rules restrict any use of the information to criminally investigate or prosecute any alcohol or drug abuse patient.[facility] HospitalIn the event this information is protected by the Federal Confidentiality of Alcohol and Drug Abuse Patient Records regulations: The Federal rules restrict any use of the information to criminally investigate or prosecute any alcohol or drug abuse patient.[facility] HospitalIn the event this information is protected by the Federal Confidentiality of Alcohol and Drug Abuse Patient Records regulations: The Federal rules restrict any use of the information to criminally investigate or prosecute any alcohol or drug abuse patient.[facility] HospitalIn the event this information is protected by the Federal Confidentiality of Alcohol and Drug Abuse Patient Records regulations: The Federal rules restrict any use of the information to criminally investigate or prosecute any alcohol or drug abuse patient.[facility] HospitalIn the event this information is protected by the Federal Confidentiality of Alcohol and Drug Abuse Patient Records regulations: The Federal rules restrict any use of the information to criminally investigate or prosecute any alcohol or drug abuse patient.[facility] HospitalIn the event this information is protected by the Federal Confidentiality of Alcohol and Drug Abuse Patient Records regulations: The Federal rules restrict any use of the information to criminally investigate or prosecute any alcohol or drug abuse patient.[facility] Reason for Visit (unrecogniz ed section and content) Reason Comments Established Patient Specialty Diagnoses / Procedures Referred By Contac t Referred To Contact HEMATOLOGY/ONCOLOGY Diagnoses lab ov tx Procedures lab ov tx Self [facility] [address] [place] [address] Referral ID Status Reason Start Date Expiration Date Visits Requested Visits Authorized [id number] Authorized Patient Cleared - Qualified 100% FAS 02/21/2024 05/21/2024 99 99 Reason Comments Chemotherapy Treatment Specialty Diagnoses / Procedures Referred By Contac t Referred To Contact Diagnoses D69.3 (ICD-10-CM) - Immune thrombocytopenic purpura Procedure(s): J9312 - INJECTION, RITUXIMAB, 10 MG Procedures D69.3 (ICD-10-CM) - Immune thrombocytopenic purpura Procedure(s): J9312 - INJECTION, RITUXIMAB, 10 [place] [address] Referral ID Status Reason Start Date Expiration Date Visits Requested Visits Authorized [id number] Authorized Financial Clearance Required - Self Pay Patient Cleared - Qualified 100% FAS 05/22/2024 08/20/2024 99 99 Specialty Diagnoses / Procedures Referred By Contac t Referred To Contact Hematology / HEMATOLOGY/ONCOLOGY Diagnoses CHEMO EDUCATION- RITUXIMAB Procedures PROVIDER SPECIALTY PHONE CALL Self [facility], Custodial Officer [facility] [address] [place] [address] Referral ID Status Reason Start Date Expiration Date Visits Requested Visits Authorized [id number] Authorized Patient Cleared - Qualified 100% FAS 11/20/2023 02/18/2024 99 99 Reason Comments Non-Chemotherapy Treatment Specialty Diagnoses / Procedures Referred By Contac t Referred To Contact Laboratory Medicine / LAB [facility] MOB Diagnoses CBC Procedures LAB Self Lab [facility] [address] [place] [address] Referral ID Status Reason Start Date Expiration Date Visits Requested Visits Authorized [id number] Authorized Patient Cleared - Qualified 100% FAS 08/21/2023 11/19/2023 99 99 Specialty Diagnoses / Procedures Referred By Contac t Referred To Contact Diagnoses ITP Procedures CONSULT/TEST/TREAT Killian Elam, DO [address] [place] [address] [facility] [place] [address] Referral ID Status Reason Start Date Expiration Date Visits Requested Visits Authorized [id number] Authorized Patient Cleared - Qualified 100% FAS 05/24/2023 08/22/2023 99 99 Reason Comments Results Reason Comments Appointment NEW PT Reason Comments New Patient Specialty Diagnoses / Procedures Referred By Contac t Referred To Contact Diagnoses ITP Procedures CONSULT/TEST/TREAT Killian Elam, DO [address] [place] [address] [facility] Reason Comments Orders Reason Comments Results Low platelets. Reason Comments AVS 05/27 Reason Comments Medication Problem Reason Comments Results Low potassium Reason Comments Benefits Investigation Reason Comments Follow Up Reason Comments Radiology US Specialty Diagnoses / Procedures Referred By Contac t Referred To Contact Diagnoses ITP Procedures CONSULT/TEST/TREAT Killian Elam, DO [address] [place] [address] [place] [address] Reason Comments AVS 10/02 Patient Question Patient Update Reason Comments Custodial Officer - Other Introduction Reason Comments Custodial Officer - Other Chemo education Reason Comments Custodial Officer - Other C1D1 Post Treat ment Call (Rituxan) Reason Comments Social Work Services Reason Comments Custodial Officer - Other Follow-up Reason Comments Patient Question Reason Onset Date Comments SPP Oral Oncology/hematology - Treatment Referra l 12/24/2023 Promacta 50mg Insurance Authorization 12/24/2023 Insurance Inquiry 12/24/2023 Pharmacy Insur ance Reason Comments Appointment Reason Comments Patient Update [facility] [place] [facility] [phone]. Reason Comments Promacta Patient Assistance Reason Onset Date Comments Refill Request 02/13/2024 [facility] Reason Comments Patient Update Reason Comments Social Work Services Promacta Assistance Reason Comments Pt Symptoms Reason Comments Promacta Assistance Reason Comments Establish Care Reason Comments Missed Labs Reason Comments promacta Medication Care Teams (unrecognized sec tion and content) Team Status: Active Member Role Status Dates Dr. Jason Gongora MD Family Provider Active No Primary Care Physician Primary Care Provider Active Team Status: Active Member Role Status Dates Dr. Jasper Payan , DO Emergency Provider Active No Primary Care Physician Primary Care Provider Active Dr. Karol Mari MD Attending Provider Active Team Status: Active Member Role Status Dates Dr. Jasper Payan , DO Emergency Provider Active No Primary Care Physician Primary Care Provider Active Dr. Karol Mari MD Admit Provider, Attending Prov ider Active Team Status: Active Member Role Status Dates Dr. Jasper Payan , DO Emergency Provider Active No Primary Care Physician Primary Care Provider Active Dr. Karol Mari MD Admit Provider, Other Provider Active Dr. Abhishek Dey MD Other Provider Active Dr. Fanta Heard MD Other Provider Active Dr. Radha Rice MD Other Provider Active Dr. Daniel Harris MD Other Provider Active Dr. Killian Elam , Other Provider Active Dr. Kay Yoo MD Attending Provider, Other Prov ider Active Team Status: Inactive Member Role Status Dates Dr. Jasper Payan , DO Emergency Provider Active No Primary Care Physician Primary Care Provider Active Dr. Karol Mari MD Admit Provider, Other Provider Active Dr. Abhishek Dey MD Other Provider Active Dr. Fanta Heard MD Other Provider Active Dr. Radha Rice MD Other Provider Active Dr. Daniel Harris MD Other Provider Active Dr. Killian Elam DO Other Provider Active Dr. Kay Yoo MD Attending Provider Active Practical Nursing Teacher Relationship Specialty Start Date End Date Killian Elam DO [address] [place] [address] Hematology/Oncology 05/27/23 Practical Nursing Teacher Relationship Specialty Start Date End Date Killian Elam DO [address] [place] [address] Hematology/Oncology 05/27/23 Practical Nursing Teacher Relationship Specialty Start Date End Date Killian Elam DO [address] [place] [address] Hematology/Oncology 05/27/23 Practical Nursing Teacher Relationship Specialty Start Date End Date Killian Elam DO [address] [place] [address] Hematology/Oncology 05/27/23 Practical Nursing Teacher Relationship Specialty Start Date End Date Killian Elam DO [address] [place] [address] Hematology/Oncology 05/27/23 Practical Nursing Teacher Relationship Specialty Start Date End Date Killian Elam DO [address] [place] [address] Hematology/Oncology 05/27/23 Practical Nursing Teacher Relationship Specialty Start Date End Date Killian Elam DO [address] [place] [address] Hematology/Oncology 05/27/23 Practical Nursing Teacher Relationship Specialty Start Date End Date Killian Elam DO [address] [place] [address] Hematology/Oncology 05/27/23 Practical Nursing Teacher Relationship Specialty Start Date End Date Killian Elam DO [address] [place] [address] Hematology/Oncology 05/27/23 Practical Nursing Teacher Relationship Specialty Start Date End Date Killian Elam DO [address] [place] [address] Hematology/Oncology 05/27/23 Practical Nursing Teacher Relationship Specialty Start Date End Date Killian Elam DO [address] [place] [address] Hematology/Oncology 05/27/23 Practical Nursing Teacher Relationship Specialty Start Date End Date Killian Elam DO [address] [place] [address] Hematology/Oncology 05/27/23 Practical Nursing Teacher Relationship Specialty Start Date End Date Killian Elam DO [address] [place] [address] Hematology/Oncology 05/27/23 Practical Nursing Teacher Relationship Specialty Start Date End Date Killian Elam DO [address] [place] [address] Hematology/Oncology 05/27/23 Practical Nursing Teacher Relationship Specialty Start Date End Date Killian Elam DO [address] [place] [address] Hematology/Oncology 05/27/23 Practical Nursing Teacher Relationship Specialty Start Date End Date Killian Elam DO [address] [place] [address] Hematology/Oncology 05/27/23 Practical Nursing Teacher Relationship Specialty Start Date End Date Killian Elam DO [address] [place] [address] Hematology/Oncology 05/27/23 Practical Nursing Teacher Relationship Specialty Start Date End Date Killian Elam DO [address] [place] [address] Hematology/Oncology 05/27/23 Practical Nursing Teacher Relationship Specialty Start Date End Date Killian Elam DO [address] [place] [address] Hematology/Oncology 05/27/23 Olimpia Graves RN Specialty Custodial Officer Oncology 11/19/23 Practical Nursing Teacher Relationship Specialty Start Date End Date Killian Elam DO [address] [place] [address] Hematology/Oncology 05/27/23 Olimpia Graves RN Specialty Custodial Officer Oncology 11/19/23 Practical Nursing Teacher Relationship Specialty Start Date End Date Killian Elam DO [address] [place] [address] Hematology/Oncology 05/27/23 Olimpia Graves RN Specialty Custodial Officer Oncology 11/19/23 Practical Nursing Teacher Relationship Specialty Start Date End Date Killian Elam DO [address] [place] [address] Hematology/Oncology 05/27/23 Olimpia Graves RN Specialty Custodial Officer Oncology 11/19/23 Neeta Robertson LISW [address] [place] [address] Retail Department Supervisor Hematology/Oncology 11/29/23 Practical Nursing Teacher Relationship Specialty Start Date End Date Killian Elam DO [address] [place] [address] Hematology/Oncology 05/27/23 Olimpia Graves RN Specialty Custodial Officer Oncology 11/19/23 Neeta Robertson LISW [address] [place] [address] Retail Department Supervisor Hematology/Oncology 11/29/23 Team Status: Inactive Member Role Status Dates No Primary Care Physician Primary Care Provider Active Dr. Harvey Singh MD Emergency Provider Active Practical Nursing Teacher Relationship Specialty Start Date End Date Killian Elam DO [address] [place] [address] Hematology/Oncology 05/27/23 Olimpia Graves RN Specialty Custodial Officer Oncology 11/19/23 Neeta Robertson LISW [address] [place] [address] Retail Department Supervisor Hematology/Oncology 11/29/23 Practical Nursing Teacher Relationship Specialty Start Date End Date Killian Elam DO [address] [place] [address] Hematology/Oncology 05/27/23 Olimpia Graves RN Specialty Custodial Officer Oncology 11/19/23 Neeta Robertson LISW [address] [place] [address] Retail Department Supervisor Hematology/Oncology 11/29/23 Practical Nursing Teacher Relationship Specialty Start Date End Date Killian Elam DO [address] [place] [address] Hematology/Oncology 05/27/23 Olimpia Graves RN Specialty Custodial Officer Oncology 11/19/23 Neeta Robertson, COLOR CHECKER [employer] [address] [place] [address] Retail Department Supervisor Hematology/Oncology 11/29/23 Practical Nursing Teacher Relationship Specialty Start Date End Date Killian Elam DO [address] [place] [address] Hematology/Oncology 05/27/23 Olimpia Graves RN Specialty Custodial Officer Oncology 11/19/23 Neeta Robertosn, COLOR CHECKER [employer] [address] [place] [address] Retail Department Supervisor Hematology/Oncology 11/29/23 Practical Nursing Teacher Relationship Specialty Start Date End Date Killian Elam DO [address] [place] [address] Hematology/Oncology 05/27/23 Olimpia Graves RN Specialty Custodial Officer Oncology 11/19/23 Neeta Robertson, COLOR CHECKER [employer] [address] [place] [address] Retail Department Supervisor Hematology/Oncology 11/29/23 Practical Nursing Teacher Relationship Specialty Start Date End Date Killian Elam DO [address] [place] [address] Hematology/Oncology 05/27/23 Olimpia Graves RN Specialty Custodial Officer Oncology 11/19/23 Neeta Robertson, COLOR CHECKER [employer] [address] [place] [address] Retail Department Supervisor Hematology/Oncology 11/29/23 Practical Nursing Teacher Relationship Specialty Start Date End Date Killian Elam DO [address] [place] [address] Hematology/Oncology 05/27/23 Olimpia Graves RN Specialty Custodial Officer Oncology 11/19/23 Neeta Robertson, COLOR CHECKER [employer] [address] [place] [address] Retail Department Supervisor Hematology/Oncology 11/29/23 Practical Nursing Teacher Relationship Specialty Start Date End Date Killian Elam DO [address] [place] [address] Hematology/Oncology 05/27/23 Olimpia Graves RN Specialty Custodial Officer Oncology 11/19/23 Neeta Robertson, COLOR CHECKER [employer] [address] [place] [address] Retail Department Supervisor Hematology/Oncology 11/29/23 Team Status: Inactive Member Role Status Dates No Primary Care Physician Primary Care Provider Active Dr. Harvey Singh MD Attending Provider, Emergency Pro vider Active Team Status: Inactive Member Role Status Dates No Primary Care Physician Primary Care Provider Active Dr. Jasper Payan , DO Emergency Provider Active Practical Nursing Teacher Relationship Specialty Start Date End Date Killian Elam DO [address] [place] [address] Hematology/Oncology 05/27/23 Olimpia Graves RN Specialty Custodial Officer Oncology 11/19/23 Neeta Robertson, COLOR CHECKER [employer] [address] [place] [address] Retail Department Supervisor Hematology/Oncology 11/29/23 Practical Nursing Teacher Relationship Specialty Start Date End Date Killian Elam DO [address] [place] [address] Hematology/Oncology 05/27/23 Olimpia Graves RN Specialty Custodial Officer Oncology 11/19/23 Neeta Robertson, COLOR CHECKER [employer] [address] [place] [address] Retail Department Supervisor Hematology/Oncology 11/29/23 Practical Nursing Teacher Relationship Specialty Start Date End Date Killian Elam DO [address] [place] [address] Hematology/Oncology 05/27/23 Olimpia Graves RN Specialty Custodial Officer Oncology 11/19/23 Neeta Robertson, COLOR CHECKER [employer] [address] [place] [address] Retail Department Supervisor Hematology/Oncology 11/29/23 Practical Nursing Teacher Relationship Specialty Start Date End Date Killian Elam DO [address] [place] [address] Hematology/Oncology 05/27/23 Olimpia Graves RN Specialty Custodial Officer Oncology 11/19/23 eNeta Robertson, COLOR CHECKER [employer] [address] [place] [address] Retail Department Supervisor Hematology/Oncology 11/29/23 Practical Nursing Teacher Relationship Specialty Start Date End Date Killian Elam DO [address] [place] [address] Hematology/Oncology 05/27/23 Olimpia Graves RN Specialty Custodial Officer Oncology 11/19/23 Neeta Robertson, COLOR CHECKER [employer] [address] [place] [address] Retail Department Supervisor Hematology/Oncology 11/29/23 Practical Nursing Teacher Relationship Specialty Start Date End Date Killian Elam DO [address] [place] [address] Hematology/Oncology 05/27/23 Olimpia Graves RN Specialty Custodial Officer Oncology 11/19/23 Neeta Robertson, COLOR CHECKER [employer] [address] [place] [address] Retail Department Supervisor Hematology/Oncology 11/29/23 Practical Nursing Teacher Relationship Specialty Start Date End Date Killian Elam DO [address] [place] [address] Hematology/Oncology 05/27/23 Olimpia Graves RN Specialty Custodial Officer Oncology 11/19/23 Neeta Robertson, COLOR CHECKER [employer] [address] [place] [address] Retail Department Supervisor Hematology/Oncology 11/29/23 Practical Nursing Teacher Relationship Specialty Start Date End Date Killian Elam DO [address] [place] [address] Hematology/Oncology 05/27/23 Olimpia Graves RN Specialty Custodial Officer Oncology 11/19/23 Neeta Robertson LISW [address] [place] [address] Retail Department Supervisor Hematology/Oncology 11/29/23 Practical Nursing Teacher Relationship Specialty Start Date End Date Mariusz Allen MD [address] [facility] [place] [address] PCP - General Family Medicine 07/07/24 Killian Elam DO [address] [place] [address] Hematology/Oncology 05/27/23 Olimpia Graves RN Specialty Custodial Officer Oncology 11/19/23 Neeta Robertson LISW [address] [place] [address] Retail Department Supervisor Hematology/Oncology 11/29/23 Practical Nursing Teacher Relationship Specialty Start Date End Date Mariusz Allen MD [address] [facility] [place] [address] PCP - General Family Medicine 07/07/24 Killian Elam DO [address] [place] [address] Hematology/Oncology 05/27/23 Olimpia Graves RN Specialty Custodial Officer Oncology 11/19/23 Neeta Robertson, HILLARY [address] [place] [address] Retail Department Supervisor Hematology/Oncology 11/29/23 Practical Nursing Teacher Relationship Specialty Start Date End Date Mariusz Allen MD [address] [facility] [place] [address] PCP - General Family Medicine 07/07/24 Killian Elam DO [address] [place] [address] Hematology/Oncology 05/27/23 Olimpia Graves RN Specialty Custodial Officer Oncology 11/19/23 Neeta Robertson, COLOR CHECKER [employer] [address] [place] [address] Retail Department Supervisor Hematology/Oncology 11/29/23 Practical Nursing Teacher Relationship Specialty Start Date End Date Mariusz Allen MD [address] [place] [address] PCP - General Family Medicine 07/07/24 Killian Elam DO [address] [place] [address] Hematology/Oncology 05/27/23 Olimpia Graves RN Specialty Custodial Officer Oncology 11/19/23 Neeta Robertson, HILLARY [address] [place] [address] Retail Department Supervisor Hematology/Oncology 11/29/23 Practical Nursing Teacher Relationship Specialty Start Date End Date Mariusz Allen MD [address] [place] [address] PCP - General Family Medicine 07/07/24 Killian Elam DO [address] [place] [address] Hematology/Oncology 05/27/23 Olimpia Graves RN Specialty Custodial Officer Oncology 11/19/23 Neeta Robertson LISW [address] [place] [address] Retail Department Supervisor Hematology/Oncology 11/29/23 Practical Nursing Teacher Relationship Specialty Start Date End Date Mariusz Allen MD [address] [place] [address] PCP - General Family Medicine 07/07/24 Killian Elam DO [address] [place] [facility] [place] [address] Hematology/Oncology 05/27/23 Olimpia Graves RN Specialty Custodial Officer Oncology 11/19/23 Neeta Robertson, COLOR CHECKER [employer] [address] [facility] [place] [address] Retail Department Supervisor Hematology/Oncology 11/29/23 Podlogar, ZEKE Sims.VALET ATTENDANT [address] [facility] [place] [address] [employer] Consultant Family Medicine 09/19/24 Practical Nursing Teacher Relationship Specialty Start Date End Date Mariusz Allen MD [address] [facility] [place] [address] PCP - General Family Medicine 07/07/24 Killian Elam DO [address] [place] [facility] [place] [address] Hematology/Oncology 05/27/23 Olimpia Graves RN Specialty Custodial Officer Oncology 11/19/23 Neeta Robertson, COLOR CHECKER [employer] Y[employer] [address] [facility] [place] [address] Retail Department Supervisor Hematology/Oncology 11/29/23 Podlogar, JABARI SimsN.VALET ATTENDANT [address] [facility] [place] [address] [employer] Sales Consultant Family Medicine 09/19/24 Danuta Plummer APRN.VALET ATTENDANT [address] [place] [address] [employer] Consultant Family Medicine 12/25/24 01/03/25 Danuta Plummer APRN.VALET ATTENDANT [address] [place] [address] [employer] Consultant Family Medicine 01/04/25 Goals (unrecognized section and content) Goals may be documented in a n alternate sectionGoals may be documented in an alternate sectionGoals may be documented in an alternate section (unrecognized sect ion and content) No Status Records FoundNo Status Records FoundNo Status Records Found INFORMATION SOURCE (unrecogn ized section and content) DATE CREATED AUTHOR 05/25/2023 [facility] DATE CREATED AUTHOR AUTHOR'S ORGANIZ ATION 07/28/2024 [facility] DATE CREATED AUTHOR AUTHOR'S ORGANIZ ATION 01/22/2025 [facility] Administered Medications - up to 3 most recent administrations Administered Medications (un recognized section and content) Medication Order MAR Action Action Date Dose Rate Site acetaminophen 650 mg tab(s) (TYLENOL) 650 mg, ORAL, ONCE, 1 dose, On Sat11/22/23 at 0900, Give 30 minutes prior to chemotherapy. No more than 4000 mg of acetaminophen should be given per day (FROM ALL SOURCES) Given 11/22/2023 9:01 AM EST 650 mg diphenhydrAMINE 50 mg (BENADRYL) 50 mg, ORAL, ONCE, 1 dose, On Sat11/22/23 at 0900, Give 30 minutes prior to chemotherapy. Given 11/22/2023 9:01 AM EST 50 mg diphenhydrAMINE 50 mg injection (BENADRYL) 50 mg, INTRAVENOUS, NEEDED, 1 dose, Starting on Sat11/22/23 at 0841, Until Sat11/22/23 at 1205, Administer per hypersensitivity/anaphylaxis grading in nursing communication Given 11/22/2023 12:05 PM EST 50 mg hydrocortisone sodium succinate (PF) 100 mg injection (Solu-CORTEF) 100 mg, INTRAVENOUS, NEEDED, 1 dose, Starting on Sat11/22/23 at 0841, Until Sat11/22/23 at 1232, Administer per hypersensitivity/anaphylaxis grading in nursing communication Given 11/22/2023 12:32 PM EST 100 mg riTUXimab-pvvr 700 mg in NaCl 0.9% 610 mL (RUXIENCE) 700 mg (rounded from 716.25 mg = 375 mg/m2 1.91 m2 Treatment Plan BSA from Recorded weight), INTRAVENOUS, ONCE, 1 dose, On Sat11/22/23 at 0900, exp 0911/23/23 (room temp) Infuse at rate of 50mg/hr. If no hypotension, increase rate every 30 minutes by 50mg/hr to a maximum rate of 400mg/hr. Refrigerate. Rate/Dose Change 11/22/2023 2:00 PM EST Rate/Dose Change 11/22/2023 1:30 PM EST 261 mL/ hr Restarted 11/22/2023 12:55 PM EST 218 mL/hr Inactive Administered Medications - up to 3 most recent administrations Medication Order MAR Action Action Date Dose Rate Site acetaminophen 650 mg tab(s) (TYLENOL) 650 mg, ORAL, ONCE, 1 dose, On Sat11/29/23 at 0930, Give 30 minutes prior to chemotherapy. No more than 4000 mg of acetaminophen should be given per day (FROM ALL SOURCES) Given 11/29/2023 9:26 AM EST 650 mg diphenhydrAMINE 50 mg (BENADRYL) 50 mg, ORAL, ONCE, 1 dose, On Sat11/29/23 at 0930, Give 30 minutes prior to chemotherapy. Given 11/29/2023 9:26 AM EST 50 mg potassium chloride iv piggyback 20 mEq/100 mL 20 mEq, INTRAVENOUS, at 100 mL/hr, Administer over 1 Hours, ONCE, 1 dose, On Sat11/29/23 at 1130, NONCYTOTOXIC VESICANT If ordered with infusion rate range, start with maximum infusion rate and decrease rate if infusion is not tolerated New Bag/Syringe/Bottle 11/29/2023 11:29 AM EST 20 mEq 100 mL/hr riTUXimab-pvvr 700 mg in NaCl 0.9% 610 mL (RUXIENCE) 700 mg (rounded from 716.25 mg = 375 mg/m2 1.91 m2 Treatment Plan BSA from Recorded weight), INTRAVENOUS, ONCE, 1 dose, On Sat11/29/23 at 0930, Approx Total Volume - Expires: 11/29/23 @ 1600 INITIAL - Initiate infusion at a rate of 50 mg/hr. In the absence of infusion toxicity, increase infusion rate by 50 mg/hr increments every 30 minutes, to a maximum of 400 mg/hr Refrigerate. Rate/Dose Change 11/29/2023 1:31 PM EST Rate/Dose Change 11/29/2023 12:59 PM EST 261 mL /hr Rate/Dose Change 11/29/2023 12:29 PM EST 218 mL /hr Inactive Administered Medications - up to 3 most recent administrations Medication Order MAR Action Action Date Dose Rate Site acetaminophen 650 mg tab(s) (TYLENOL) 650 mg, ORAL, ONCE, 1 dose, On Sat12/20/23 at 0900, Give 30 minutes prior to chemotherapy. No more than 4000 mg of acetaminophen should be given per day (FROM ALL SOURCES) Given 12/20/2023 9:11 AM EST 650 mg diphenhydrAMINE 50 mg (BENADRYL) 50 mg, ORAL, ONCE, 1 dose, On Sat12/20/23 at 0900, Give 30 minutes prior to chemotherapy. Given 12/20/2023 9:11 AM EST 50 mg riTUXimab 700 mg in NaCl 0.9% 250 mL (RITUXAN) 700 mg (rounded from 716.25 mg = 375 mg/m2 1.91 m2 Treatment Plan BSA from Recorded weight), INTRAVENOUS, ONCE, 1 dose, On Sat12/20/23 at 0900, exp 89912/21/23 (room temp) Total Volume = 250 ml Infuse 50 ml over 30 minutes then 200 ml over 60 minutes. New Bag/Syringe/Bottle 12/20/2023 9:39 AM EST 700 mg Inactive Administered Medications - up to 3 most recent administrations Medication Order MAR Action Action Date Dose Rate Site acetaminophen 650 mg tab(s) (TYLENOL) 650 mg, ORAL, ONCE, 1 dose, On Sat12/26/23 at 1200, No more than 4000 mg of acetaminophen should be given per day (FROM ALL SOURCES), If ordered PRN for pain, patient/guardian may elect to receive this medication for higher pain levels INSTEAD of the opioid, if preferred: N/A Given 12/26/2023 11:38 AM EDT 650 mg diphenhydrAMINE 25 mg capsule (BENADRYL) 25 mg, ORAL, ONCE, 1 dose, On Sat12/26/23 at 1200 Given 12/26/2023 11:38 AM EDT 25 mg immune globulin (human) (IgG) 70 g in empty bag Total Volume 700 mL (GAMMAGARD) 70 g, INTRAVENOUS, ONCE, 1 dose, On Sat12/26/23 at 1200, Refrigerate - Prepared as a 10% solution - Brand: Lot: Total Volume., Infusion regimen: Standard, Starting rate (mL/kg/hr): 0.5 mL/kg/hr, Rate after 30 min (mL/kg/hr): 1 mL/kg/hr, Titration rate/max: May increase by 1 mL/kg/hr every 30 minutes thereafter to a maximum of 5 mL/kg/hr New Bag/Syringe/Bottle 12/26/2023 11:44 AM EDT 70 g Inactive Administered Medications - up to 3 most recent administrations Medication Order MAR Action Action Date Dose Rate Site acetaminophen 650 mg tab(s) (TYLENOL) 650 mg, ORAL, ONCE, 1 dose, On Sat12/27/23 at 1030, No more than 4000 mg of acetaminophen should be given per day (FROM ALL SOURCES), If ordered PRN for pain, patient/guardian may elect to receive this medication for higher pain levels INSTEAD of the opioid, if preferred: N/A Given 12/27/2023 10:19 AM EDT 650 mg diphenhydrAMINE 25 mg capsule (BENADRYL) 25 mg, ORAL, ONCE, 1 dose, On Sat12/27/23 at 1030 Given 12/27/2023 10:19 AM EDT 25 mg immune globulin (human) (IgG) 70 g in empty bag Total Volume 700 mL (GAMMAGARD) 70 g (rounded from 69.6 g = 1 g/kg/dose 69.6 kg Treatment plan ideal weight), INTRAVENOUS, ONCE, 1 dose, On Sat12/27/23 at 1030, Refrigerate - Prepared as a 10% solution - Brand: Lot: Total Volume., Infusion regimen: Standard, Starting rate (mL/kg/hr): 0.5 mL/kg/hr, Rate after 30 min (mL/kg/hr): 1 mL/kg/hr, Titration rate/max: May increase by 1 mL/kg/hr every 30 minutes thereafter to a maximum of 5 mL/kg/hr Rate/Dose Change 12/27/2023 1:11 PM EDT 370 mL/hr Rate/Dose Change 12/27/2023 12:41 PM EDT 296 mL /hr Rate/Dose Change 12/27/2023 12:11 PM EDT 222 mL /hr Inactive Administered Medications - up to 3 most recent administrations Medication Order MAR Action Action Date Dose Rate Site acetaminophen 650 mg tab(s) (TYLENOL) 650 mg, ORAL, ONCE, 1 dose, On Sat01/20/24 at 0900, Give 30 minutes prior to chemotherapy. No more than 4000 mg of acetaminophen should be given per day (FROM ALL SOURCES) Given 01/20/2024 8:55 AM EDT 650 mg diphenhydrAMINE 50 mg capsule (BENADRYL) 50 mg, ORAL, ONCE, 1 dose, On Sat01/20/24 at 0900, Give 30 minutes prior to chemotherapy. Given 01/20/2024 8:55 AM EDT 50 mg riTUXimab 700 mg in NaCl 0.9% 250 mL (RITUXAN) 700 mg (rounded from 716.25 mg = 375 mg/m2 1.91 m2 Treatment Plan BSA from Recorded weight), INTRAVENOUS, ONCE, 1 dose, On Sat01/20/24 at 0930, Total Volume = 250 ml Infuse 50 ml over 30 minutes then 200 ml over 60 minutes. exp 92901/21/24 (room temp) (free med) New Bag/Syringe/Bottle 01/20/2024 9:34 AM EDT 700 mg FOR RECORDS PERTAINING TO PATIENTS WHO ARE OR HAVE BEEN ENROLLED IN A CHEMICAL DEPENDENCY/SUBSTANCEABUSE PROGRAM, SOME INFORMATION MAY BE OMITTED. This clinical summary was aggregated from multiple sources. Caution should be exercised in using it in the provision of clinical care. This summary normalizes information from multiple sources, and as a consequence, information in this document may materially change the coding, format and clinical context of patient data. In addition, data may be omitted in some cases. CLINICAL DECISIONS SHOULD BE BASED ON THE PRIMARY CLINICAL RECORDS. [email or web address] provides no warranty or guarantee of the accuracy or completeness of information in this document.
[2025-10-10 09:33] LABS: Acetaminophen (Tylenol) Level < 5.0 ug/mL (8.0-19.0); Alcohol, Blood (Medical)-Serum < 10.1 mg/dL (<=10.0); Salicylate < 0.5 mg/dL (2.8-20.0)
[2025-10-10 14:42] LABS: Barbiturate Urine NEGATIVE (< 200 ng/mL); Benzodiazepine Urine PRESUMPTIVE POSITIVE (< 200 ng/mL); PCP Urine NEGATIVE (< 25 ng/mL); THC Urine NEGATIVE (< 50 ng/mL)
--- NOTE | 2025-10-10 14:55 | CT_ITS ---
PROCEDURE: BRAIN/HEAD WITHOUT CONTRAST 10/10/2025 REASON FOR EXAM: HEAD INJURY TECHNIQUE: Procedure Code: CTBR Modality: CT Procedure: BRAIN/HEAD WITHOUT CONTRAST Coronal and Sagittal reconstruction series were provided. One or more dose reduction techniques were used (e.g., Automated exposure control, adjustment of the mA and/or kV according to patient size, use of iterative reconstruction technique. RADIATION DOSE SUMMARY: DLP: 812.98 mGycm FINDINGS: Brain: Normal CSF Spaces: Normal Sinuses/Mastoids: There is complete opacification of the right maxillary sinus and a left maxillary sinus polyp. Bones: No acute fractures. CT/Brain/Head without Contrast IMPRESSION: No acute intracranial abnormalities. No acute fractures. Complete opacification of the right maxillary sinus, suggestive of sinus diseas e. Reading Location: [id number]
== END 2025-10-10 16:41 | disposition home or self-care (01) ==
PROVIDERS: Emergency Provider Emergency Medicine; Visit Provider Emergency Medicine
DX: F11.10 Opioid abuse, uncomplicated (principal)
CPT/HCPCS: 70450; 80048; 80076; 80143; 80179; 80307; 82077; 83605; 85025; 85610; 85730; 93005; 96374; 99284; A4216